=== PATIENT | male | born 1960 | race Caucasian/White ===

== ENCOUNTER → 2016-04-26 | Outpatient (CLI) | payer MEDICAID ==
[~2016-04-26] MED LIST: ACET-1697 PO; ASP81TEC PO; ATOR40TA70 PO; BSP10T PO; BUPR150T49 PO; CILO50TA PO; CLOP75TA PO; CLOP75TA69 PO; CYCL10TA9 PO; DESV100T PO; DESV50TA PO; HCTZ12.5T PO; HYDR28CR10 TOP; IBP800T PO; LAMO25TA PO; LISI1TAB10 PO; LSNP20T PO; LURA40TA PO; LURA80TA3 PO; NAPR-689 PO; NAPR550T2 PO; QUET25TA PO; QUET50TA PO; SIMV40TA4 PO; TRM50T PO; ZLP5T PO; [UNRECOGNIZED DRUG - CODE] PO
--- NOTE | 2016-04-26 10:40 | Diagnostic Imaging Report ---
EXAMINATION: Low dose CT lung screening without contrast. INDICATION: Tobacco use. COMPARISON: Routine low dose screening images of the lungs were obtained. There are no previous CT examinations available for comparison. The plain film examination of the chest performed on 06/25/2015 failed to show any sign of an acute abnormality. There did appear to be minimal atelectasis in the left lung base. FINDINGS: On this study, there does appear to be a small amount of atelectasis/scar formation in the left lung base near the apex of the heart. There is also a small 1.2 cm pleural-based nodular density in this region. I suspect that these findings are chronic in nature. Even so, I would recommend that a short-term (6 month) followup CT chest exam be performed for further study. The lungs are otherwise clear. There is no evidence for failure, pneumonia or for pleural effusion to suggest an acute abnormality. There is no parenchymal mass identified either. The heart size is within normal limits. Coronary artery calcifications involving the LAD are noted. The aorta is not abnormally dilated. There is no mediastinal or hilar adenopathy identified although this exam is limited in the evaluation of adenopathy due to the absence of intravenous contrast. Thyroid gland, where visualized, is unremarkable. The sections through the upper abdomen fail to show any sign of an acute abnormality. The bone windows are unremarkable for fracture or for destructive lesion. IMPRESSION: 1. There is no evidence for an acute cardiopulmonary abnormality. There is no sign of a lung mass either. 2. There is mild scar formation with some nodularity involving the left lung base. I suspect that these findings are benign but a six-month follow CT chest exam would be recommended for additional study. CT screening LungRads Category 3. Dictated by: Dictated on workstation # [id number]
== END ==
LOC: RAD 09:12
PROVIDERS: ATTEND Family Medicine
DX: F17.210 Nicotine dependence, cigarettes, uncomplicated (principal); I10 Essential (primary) hypertension

== ENCOUNTER → 2016-09-27 | Outpatient (CLI) | payer MEDICAID | LOC: CARD 09:28 | PROVIDERS: ATTEND Internal Medicine Cardiovascular Disease | DX: I10 Essential (primary) hypertension (principal); E78.2 Mixed hyperlipidemia; I73.9 Peripheral vascular disease, unspecified; I63.9 Cerebral infarction, unspecified; Z72.0 Tobacco use | CPT/HCPCS: 93306 ==

== ENCOUNTER → 2016-09-29 | Outpatient (CLI) | payer MEDICAID ==
[~2016-09-29] MED LIST changes: +CATHETER FLUSH 10 ML SYR IV PRN; +REGADENOSON 0.4 MG/5 ML SYR (LEXISCAN) IV ONE
--- NOTE | 2016-09-30 08:41 | STRESS TEST ---
DATE OF SERVICE: 09/29/2016 LEXISCAN MYOVIEW STRESS TEST REPORT TEST DATE IS 09/29/2016. SUMMARY: The patient was injected with 10.65 mCi of technetium-99 Myoview and the resting images were obtained. Then, the patient received 0.4 mg of Lexiscan followed by 29.7 mCi of technetium-99 Myoview. Throughout the test, there were no EKG changes. The resting and stressed images were reviewed and compared in the short axis, horizontal long axis, and vertical long axis views. Review of the images showed good radiotracer uptake with typical male pattern. No significant ischemia or infarction. SSS is 1, SDS 1, TID value 1.11. On the gated images, the left ventricle appeared to be normal size with normal contractility. Calculated ejection fraction 72%. CONCLUSION: 1. The patient tolerated Lexiscan well. 2. No ischemia or infarction on SPECT images. 3. Normal left ventricular size with normal contractility. Calculated ejection fraction 72%. Job ID: [id number] DocumentID: [id number] Dictated Date: 09/29/2016 14:46:49 Body Engineer Date: 09/29/2016 18:22:13 Dictated By: LELAND BROWN MD
== END ==
LOC: CARD 07:46
PROVIDERS: ATTEND Internal Medicine Cardiovascular Disease
DX: I10 Essential (primary) hypertension (principal); E78.2 Mixed hyperlipidemia; I73.9 Peripheral vascular disease, unspecified; I63.9 Cerebral infarction, unspecified; Z72.0 Tobacco use
CPT/HCPCS: 78452; 93017

== ENCOUNTER → 2016-11-03 | Outpatient (CLI) | payer MEDICAID ==
[~2016-11-03] MED LIST changes: -CATHETER FLUSH 10 ML SYR IV PRN; +CYCL5TAB PO; -REGADENOSON 0.4 MG/5 ML SYR (LEXISCAN) IV ONE
--- NOTE | 2016-11-03 16:38 | Diagnostic Imaging Report ---
PROCEDURE: CT chest without contrast. TECHNIQUE: Multiple contiguous axial images were obtained through the chest without the use of intravenous contrast. INDICATION: Followup lingular abnormality seen on prior CT. COMPARISON: CT chest of 04/26/2016. FINDINGS: Lungs and airway: No endoluminal lesion in the trachea or central bronchi. No pulmonary mass, nodule, or consolidation. The linear focus of atelectasis adjacent to the prominent mediastinal fat in the lingula is unchanged. The majority of the opacity seen on prior radiograph is secondary to prominent mediastinal fat projecting into the lingula. Pleura: No pleural effusion or pneumothorax. Heart and mediastinum: No supraclavicular or axillary lymphadenopathy. No mediastinal, hilar, or juxtaphrenic lymphadenopathy. Heart is normal in size without pericardial effusion. Normal-caliber thoracic aorta. Upper abdomen: Visualized aspects of the upper abdomen are grossly normal by noncontrast imaging. Musculoskeletal: No concerning focal osseous lesion. IMPRESSION: 1. No intrathoracic neoplasm. 2. Small focus of atelectasis/scar in the lingula is due to mediastinal fat projecting into the lingula. Dictated by: Dictated on workstation # [id number]
== END ==
LOC: RAD 13:05
PROVIDERS: ATTEND Family Medicine
DX: R91.8 Other nonspecific abnormal finding of lung field (principal)
CPT/HCPCS: 71250

== ENCOUNTER 2017-01-07 11:27 | Emergency (ER) | payer OTHER, MEDICAID ==
[~2017-01-07] VITALS: Ht 177.8 cm; Wt 82.6 kg
[~2017-01-07 11:27] MED LIST changes: -CYCL5TAB PO
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
--- OUTSIDE RECORDS SUMMARY | 2017-01-07 12:20 | XMS REPORT ---
Author JERRY Kat [facility] eClinicalWorks Address Unknown Phone Unavailable Care Team Providers Care J2Ee Java Developer Name Role Phone JERRY PITT CP Unavailable Allergies No Known Allergies Problems Problem Type Condition Code Onset Dates Condition Status Problem Essential hypertension I10 Active Problem Schizoaffective disorder F25.9 Active Problem Hyperlipidemia E78.5 Active Problem History of [place] (myocardial infarction) I25.2 Active Assessment Peripheral arterial disease I73.9 Active Problem Peripheral arterial disease I73.9 Active Problem Bipolar disorder F31.9 Active Medications No Known Medications Results No Known Results Summary Purpose eClinicalWorks Submission
--- OUTSIDE RECORDS SUMMARY | 2017-01-07 12:20 | XMS REPORT ---
Author JERRY Kat [facility] eClinicalWorks Address Unknown Phone Unavailable Care Team Providers Care Timber Packer Name Role Phone JERRY PITT Unavailable Allergies No Known Allergies Problems Problem Type Condition Code Onset Dates Condition Status Problem Essential hypertension I10 Active Problem Schizoaffective disorder F25.9 Active Problem Hyperlipidemia E78.5 Active Problem History of [place] (myocardial infarction) I25.2 Active Assessment Hyperlipidemia E78.5 Active Problem Peripheral arterial disease I73.9 Active Problem Bipolar disorder F31.9 Active Medications Medication Code System Code Instructions Start Date End Date Status Dosage Atorvastatin Calcium [facility] [address]-69 40 MG Orally Once a day Apr 03, 2015 1 tablet Results No Known Results Summary Purpose eClinicalWorks Submission
--- OUTSIDE RECORDS SUMMARY | 2017-01-07 12:20 | XMS REPORT ---
Author ROSANNA Hernández [facility] eClinicalWorks Address Unknown Phone Unavailable Care Team Providers Care Theatre Instructor Name Role Phone ROSANNA SILVA Unavailable Allergies, Adverse Reactions, Alerts Substance Reaction Event Type N.K.D.A. Info Not Available Non Drug Allergy Problems Problem Type Condition Code Onset Dates Condition Status Assessment Alcohol dependence, uncomplicated F10.20 Active Assessment Anxiety disorder, unspecified F41.9 Active Assessment Cannabis abuse, uncomplicated F12.10 Active Problem Essential hypertension I10 Active Problem Schizoaffective disorder F25.9 Active Problem Hyperlipidemia E78.5 Active Problem History of [place] (myocardial infarction) I25.2 Active Assessment Bipolar disorder, unspecified F31.9 Active Problem Peripheral arterial disease I73.9 Active Problem Bipolar disorder F31.9 Active Medications Medication Code System Code Instructions Start Date End Date Status Dosage Cyclobenzaprine HCl [facility] 81576024341 10 MG TAKE ONE TABLET BY MOUTH THREE TIMES DAILY NEEDED FOR MUSCLE SPASM Lisinopril [facility] 76830276449 20 MG TAKE ONE TABLET BY MOUTH ONCE DAILY Plavix [facility] [address]-45 75 MG Orally Once a day 1 tablet Zocor [facility] [address]-39 40 MG Orally Once a day 1 tablet in the evening Seroquel [facility] [address]-02 50 MG Orally Once a day May 16, 2014 1 tablet Quetiapine Fumarate [facility] 63284697814 50 MG TAKE ONE TABLET BY MOUTH DAILY Latuda [facility] [address]-25 80 MG Orally TAKE ONE TABLET BY MOUTH DAILY WITH FOOD (AT LEAST 350 CALORIES) FOR DEPRESSION/MOOD SWINGS Cilostazol [facility] 12583328811 50 MG TAKE ONE TABLET BY MOUTH TWICE DAILY TAKE ONE-HALF HOUR BEFORE OR TWO HOURS AFTER BREAKFAST AND DINNER Hydrochlorothiazide [facility] 99372948392 12.5 MG TAKE ONE CAPSULE BY MOUTH ONCE DAILY Naproxen Sodium [facility] [address]-09 550 MG Orally Twice a day 1 tablet as needed Aspirin EC [facility] [address]-97 81 MG Orally Once a day 1 tablet Simvastatin [facility] 13497811627 40 MG TAKE ONE TABLET BY MOUTH ONCE DAILY IN THE EVENING Procedures Procedure Coding System Code Date MH Office Visit, Est Pt., Level 4 CPT-4 61831 Feb 03, 2015 Vital Signs Date/Time: Feb 03, 2015 Cardiac Monitoring Heart Rate 64 bpm Weight 195.3 lbs Height 69 in BMI 28.84 Index Blood Pressure Diastolic 86 mmHg Blood Pressure Systolic 140 mmHg Results No Known Results Summary Purpose eClinicalWorks Submission
--- OUTSIDE RECORDS SUMMARY | 2017-01-07 12:21 | XMS REPORT ---
Author Author ARAMIS Braswell Organization [facility] Address [address] [place] [address] Care Team Providers Care Professor Of Early Childhood Education Name Role Phone ARAMIS Braswell Unavailable PROBLEMS Type Condition ICD9-CM Code [id number] Code Onset Dates Condition Status SNOMED Code Problem Bipolar disorder F31.9 Active 60602017 Problem Schizoaffective disorder F25.9 Active 17014266 Problem Peripheral arterial disease I73.9 Active 567262392 Problem History of [place] (myocardial infarction) I25.2 Active 772220106 Problem Bipolar affective disorder, currently depressed, mild F31.31 Active 680764037 Problem Tobacco use Z72.0 Active 306067975 Problem Hyperlipidemia E78.5 Active 42202694 Problem Essential hypertension I10 Active 33003942 Problem Claudication I73.9 Active 314749527 Problem 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 Active 988380442 ALLERGIES Substance Reaction Event Type Date Status N.K.D.A. Unknown Non Drug Allergy Jan, Unknown SOCIAL HISTORY No smoking Hx information available PLAN OF CARE Activity Details Follow Up 2 Months Reason: VITAL SIGNS Height 69 in 2016-02-10 Weight 190.0 lbs 2016-02-10 Heart Rate 84 bpm 2016-02-10 Respiratory Rate 20 2016-02-10 BMI 28.06 kg/m2 2016-02-10 Blood pressure systolic 102 mmHg 2016-02-10 Blood pressure diastolic 72 mmHg 2016-02-10 MEDICATIONS Medication Instructions Dosage Frequency Start Date End Date Duration Status Latuda 80 MG TAKE ONE TABLET BY MOUTH ONCE DAILY WITH FOOD (AT LEAST 350 CALORIES) FOR DEPRESSION/MOOD Active Mirtazapine 45 MG Orally Once a day 1 tablet 24h June, Active Hydrochlorothiazide 12.5 MG Orally Once a day 1 capsule 24h 90 days Active Aspirin EC 81 MG Orally Once a day 1 tablet 24h Active Lisinopril 20 MG Orally Once a day 1 tablet 24h 90 days Active Cilostazol 50 mg Orally Twice a day 1 tablet 30 minutes before or 2 hours after breakfast and dinner 12h 90 days Active Plavix 75 MG Orally Once a day 1 tablet 24h 90 days Active Atorvastatin Calcium 40 MG Orally Once a day 1 tablet 24h 90 Active Cyclobenzaprine HCl 10 MG Orally Three times a day 1 tablet as needed 8h Apr, Active RESULTS No Results PROCEDURES Procedure Date Ordered Related Diagnosis Body Site EKG, TRACING (IN-HOUSE) 2016-02-10 N/A ELECTROCARDIOGRAM, TRACING Feb 10, 2016 Office Visit, Est Pt., Level 3 Feb 10, 2016 IMMUNIZATIONS No Known Immunizations
--- OUTSIDE RECORDS SUMMARY | 2017-01-07 12:21 | XMS REPORT ---
Author JERRY Kat eClinicalWorks Address Unknown Phone Unavailable Care Team Providers Care Ivf Embryologist Name Role Phone JERRY PITT Unavailable Allergies, Adverse Reactions, Alerts Substance Reaction Event Type N.K.D.A. Info Not Available Non Drug Allergy Problems Problem Type Condition Code Onset Dates Condition Status Assessment Essential hypertension I10 Active Problem History of [place] (myocardial infarction) I25.2 Active Assessment Hyperlipidemia E78.5 Active Assessment Tobacco use Z72.0 Active Assessment Peripheral arterial disease I73.9 Active Problem Claudication I73.9 Active Problem Hyperlipidemia E78.5 Active Problem Tobacco use Z72.0 Active Problem Peripheral arterial disease I73.9 Active Problem Bipolar disorder F31.9 Active Problem Essential hypertension I10 Active Problem Schizoaffective disorder F25.9 Active Medications Medication Code System Code Instructions Start Date End Date Status Dosage Plavix [facility] [address]-72 75 MG Orally Once a day [address] [facility] [address]-49 50 mg Orally Twice a day 1 tablet 30 minutes before or 2 hours after breakfast and dinner Cyclobenzaprine HCl [facility] [address]-20 10 MG Orally Three times a day May 20, 2015 1 tablet as needed Naproxen Sodium [facility] [address]-19 550 MG Orally Twice a day 1 tablet as needed Mirtazapine [facility] [address]-51 45 MG Orally Once a day July 03, [address] [facility] [address]-93 81 MG Orally Once a day [address] [facility] [address]-44 20 MG Orally Once a day [address] [facility] [address]-33 12.5 MG Orally Once a day [address] [facility] [address]-07 40 mg Orally Once a day [address] [facility] 15944977245 80 MG TAKE ONE TABLET BY MOUTH ONCE DAILY WITH FOOD (AT LEAST 350 CALORIES) FOR DEPRESSION/MOOD Procedures Procedure Coding System Code Date Office Visit, Est Pt., Level 3 CPT-4 54441 Oct 16, 2015 Vital Signs Date/Time: Oct 16, 2015 Cardiac Monitoring Heart Rate 68 bpm Weight 183.6 lbs Height 69 in BMI 27.11 Index Blood Pressure Diastolic 82 mmHg Blood Pressure Systolic 124 mmHg Results No Known Results Summary Purpose eClinicalWorks Submission
--- OUTSIDE RECORDS SUMMARY | 2017-01-07 12:21 | XMS REPORT ---
Author Author JERRY PITT Organization [facility] Address [address] [place] [address] Care Team Providers Care Retail Manager In Training Name Role Phone JERRY PITT Unavailable PROBLEMS Type Condition ICD9-CM Code [id number] Code Onset Dates Condition Status SNOMED Code Problem Bipolar disorder F31.9 Active 27646079 Problem Essential hypertension I10 Active 05815733 Problem Schizoaffective disorder F25.9 Active 42669547 Problem Peripheral arterial disease I73.9 Active 404987120 Problem Bipolar affective disorder, currently depressed, mild F31.31 Active 574768914 Problem Tobacco use Z72.0 Active 715509345 Problem 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 Active 487752386 Problem Hyperlipidemia E78.5 Active 10682734 Problem Claudication I73.9 Active 205421637 Problem History of [place] (myocardial infarction) I25.2 Active 098150061 ALLERGIES No Information SOCIAL HISTORY Never Assessed PLAN OF CARE VITAL SIGNS MEDICATIONS Unknown Medications RESULTS No Results PROCEDURES No Known procedures IMMUNIZATIONS No Known Immunizations MEDICAL (GENERAL) HISTORY Type Description Date Medical History hypertension Medical History hyperlipidemia Medical History bipolar disorder Medical History cardiovascular disease-heart attack and stroke Medical History Pure hypercholesterolemia Surgical History appendectomy Surgical History vasectomy-09/01/[address] Flores at [facility] Surgical History Stent placed in groin on right side 2014 Surgical History Blood clot removed from right knee 2015 Hospitalization History Hospitalization for surgery only
--- OUTSIDE RECORDS SUMMARY | 2017-01-07 12:21 | XMS REPORT ---
Author Author JERRY PITT [facility] Address [address] [place] [address] Care Team Providers Care Teacher Dramatics Name Role Phone JERRY PITT Unavailable PROBLEMS Type Condition ICD9-CM Code [id number] Code Onset Dates Condition Status SNOMED Code Problem Bipolar disorder F31.9 Active 41297434 Problem Essential hypertension I10 Active 93873521 Problem Schizoaffective disorder F25.9 Active 24491954 Problem Peripheral arterial disease I73.9 Active 080719789 Problem Bipolar affective disorder, currently depressed, mild F31.31 Active 211177605 Problem Tobacco use Z72.0 Active 450769307 Problem 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 Active 778059559 Problem Hyperlipidemia E78.5 Active 66548159 Problem Claudication I73.9 Active 166568090 Problem History of [place] (myocardial infarction) I25.2 Active 594251056 ALLERGIES No Known Allergies SOCIAL HISTORY Never Assessed PLAN OF CARE Activity Details Follow Up 6 Months Reason:HTN VITAL SIGNS Height 69 in 2016-04-14 Weight 182.6 lbs 2016-04-14 Temperature 97.7 degrees Fahrenheit 2016-04-14 Heart Rate 80 bpm 2016-04-14 Respiratory Rate 18 2016-04-14 BMI 26.96 kg/m2 2016-04-14 Blood pressure systolic 127 mmHg 2016-04-14 Blood pressure diastolic 82 mmHg 2016-04-14 MEDICATIONS Medication Instructions Dosage Frequency Start Date End Date Duration Status Hydrochlorothiazide 12.5 MG Orally Once a day 1 capsule 24h Active Cilostazol 50 mg Orally Twice a day 1 tablet 30 minutes before or 2 hours after breakfast and dinner 12h 90 days Active Atorvastatin Calcium 40 MG Orally Once a day 1 tablet 24h 90 Active Aspirin EC 81 MG Orally Once a day 1 tablet 24h Active Lisinopril 20 MG Orally Once a day 1 tablet 24h Active Plavix 75 MG Orally Once a day 1 tablet 24h 90 days Active Norvasc 5 MG Orally Once a day 1 tablet 24h Active Mirtazapine 30 MG Orally Once a day 2 tablets at bedtime 24h June, 30 days Active Latuda 80 MG TAKE ONE TABLET BY MOUTH ONCE DAILY WITH FOOD (AT LEAST 350 CALORIES) FOR DEPRESSION/MOOD Active Cyclobenzaprine HCl 10 MG Orally Three times a day 1 tablet as needed 8h Apr, Active RESULTS Name Result Date Reference Range LIPID PANEL 2016-04-14 Cholesterol, Total 216 100-199 Triglycerides 148 0-149 HDL Cholesterol 62 >39 VLDL Cholesterol Thien 30 5-40 LDL Cholesterol Calc 124 0-99 Comment: CMP 2016-04-14 Glucose, Serum 86 65-99 BUN 13 6-24 Creatinine, Serum 1.04 0.76-1.27 eGFR If NonAfricn Am 80 >59 eGFR If Africn Am 92 >59 BUN/Creatinine Ratio 13 9-20 Sodium, Serum 141 134-144 Potassium, Serum 4.6 3.5-5.2 Chloride, Serum 99 96-106 Carbon Dioxide, Total 26 18-29 Calcium, Serum 10.1 8.7-10.2 Protein, Total, Serum 7.8 6.0-8.5 Albumin, Serum 5.1 3.5-5.5 Globulin, Total 2.7 1.5-4.5 A/G Ratio 1.9 1.1-2.5 Bilirubin, Total 1.2 0.0-1.2 Alkaline Phosphatase, S 77 39-117 AST (SGOT) 19 0-40 ALT (SGPT) 15 0-44 CT Scan : Chest, low dose (Screening) 2016-04-26 PROCEDURES Procedure Date Ordered Result Body Site LAB [facility] Apr 14, 2016 VENIPUNCT, ROUTINE* Apr 14, 2016 IMMUNIZATIONS No Known Immunizations MEDICAL (GENERAL) HISTORY Type Description Date Medical History hypertension Medical History hyperlipidemia Medical History bipolar disorder Medical History cardiovascular disease-heart attack and stroke Medical History Pure hypercholesterolemia Surgical History appendectomy Surgical History vasectomy-09/01/[address] Flores at [facility] Surgical History Stent placed in groin on right side 2014 Surgical History Blood clot removed from right knee 2015 Hospitalization History Hospitalization for surgery only
--- OUTSIDE RECORDS SUMMARY | 2017-01-07 12:21 | XMS REPORT ---
Author Author JERRY PITT Organization [facility] Address [address] [place] [address] Care Team Providers Care Supervisor Crack Off Name Role Phone JERRY PITT Unavailable PROBLEMS Type Condition ICD9-CM Code [id number] Code Onset Dates Condition Status SNOMED Code Problem Bipolar disorder F31.9 Active 63270417 Problem Essential hypertension I10 Active 85505336 Problem Schizoaffective disorder F25.9 Active 02174581 Problem Peripheral arterial disease I73.9 Active 498463451 Problem Bipolar affective disorder, currently depressed, mild F31.31 Active 680000607 Problem Tobacco use Z72.0 Active 504340003 Problem 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 Active 829534270 Problem Hyperlipidemia E78.5 Active 72140265 Problem Claudication I73.9 Active 400489936 Problem History of [place] (myocardial infarction) I25.2 Active 981863371 ALLERGIES No Information SOCIAL HISTORY Never Assessed PLAN OF CARE VITAL SIGNS MEDICATIONS Medication Instructions Dosage Frequency Start Date End Date Duration Status Plavix 75 MG Orally Once a day 1 tablet 24h 90 days Active Cilostazol 50 mg Orally Twice a day 1 tablet 30 minutes before or 2 hours after breakfast and dinner 12h 90 days Active RESULTS No Results PROCEDURES No Known procedures IMMUNIZATIONS No Known Immunizations MEDICAL (GENERAL) HISTORY Type Description Date Medical History hypertension Medical History hyperlipidemia Medical History bipolar disorder Medical History cardiovascular disease-heart attack and stroke Medical History Pure hypercholesterolemia Surgical History appendectomy Surgical History vasectomy-09/01/[address] Flores at [facility] Surgical History Stent placed in groin on right side 2014 Surgical History Blood clot removed from right knee 2014 Hospitalization History Hospitalization for surgery only
--- OUTSIDE RECORDS SUMMARY | 2017-01-07 12:21 | XMS REPORT ---
Author Author JERRY PITT Organization [facility] Address [address] [place] [address] Care Team Providers Care Cosmetic Assembler Name Role Phone JERRY PITT Unavailable PROBLEMS Type Condition ICD9-CM Code [id number] Code Onset Dates Condition Status SNOMED Code Problem Bipolar disorder F31.9 Active 83367691 Problem Essential hypertension I10 Active 09191689 Problem Schizoaffective disorder F25.9 Active 93613006 Problem Peripheral arterial disease I73.9 Active 364134213 Problem Bipolar affective disorder, currently depressed, mild F31.31 Active 597594964 Problem Tobacco use Z72.0 Active 569083014 Problem 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 Active 386219247 Problem Hyperlipidemia E78.5 Active 48559504 Problem Claudication I73.9 Active 209516538 Problem History of [place] (myocardial infarction) I25.2 Active 023771632 ALLERGIES No Information SOCIAL HISTORY Never Assessed PLAN OF CARE VITAL SIGNS MEDICATIONS Unknown Medications RESULTS No Results PROCEDURES No Known procedures IMMUNIZATIONS No Known Immunizations MEDICAL (GENERAL) HISTORY Type Description Date Medical History hypertension Medical History hyperlipidemia Medical History bipolar disorder Medical History cardiovascular disease-heart attack and stroke Medical History Pure hypercholesterolemia Surgical History appendectomy Surgical History vasectomy-09/01/[address] Flores at [facility] Surgical History Stent placed in groin on right side 2014 Surgical History Blood clot removed from right knee 2015 Hospitalization History Hospitalization for surgery only
--- OUTSIDE RECORDS SUMMARY | 2017-01-07 12:21 | XMS REPORT ---
Author Author JERRY PITT Organization [facility] Address [address] [place] [address] Care Team Providers Care General Engineer Name Role Phone JERRY PITT Unavailable PROBLEMS Type Condition ICD9-CM Code [id number] Code Onset Dates Condition Status SNOMED Code Problem Bipolar disorder F31.9 Active 22677825 Problem Essential hypertension I10 Active 98683437 Problem Schizoaffective disorder F25.9 Active 51617800 Problem Peripheral arterial disease I73.9 Active 368833466 Problem Bipolar affective disorder, currently depressed, mild F31.31 Active 377961583 Problem Tobacco use Z72.0 Active 590490188 Problem 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 Active 651790820 Problem Hyperlipidemia E78.5 Active 96929447 Problem Claudication I73.9 Active 339370042 Problem History of [place] (myocardial infarction) I25.2 Active 741657415 ALLERGIES No Information SOCIAL HISTORY Never Assessed PLAN OF CARE VITAL SIGNS MEDICATIONS Medication Instructions Dosage Frequency Start Date End Date Duration Status Atorvastatin Calcium 80 MG Orally Once a day 1 tablet 24h 30 days Active RESULTS No Results PROCEDURES No Known procedures IMMUNIZATIONS No Known Immunizations MEDICAL (GENERAL) HISTORY Type Description Date Medical History hypertension Medical History hyperlipidemia Medical History bipolar disorder Medical History cardiovascular disease-heart attack and stroke Medical History Pure hypercholesterolemia Surgical History appendectomy Surgical History vasectomy-09/01/[address] Flores at [facility] Surgical History Stent placed in groin on right side 2014 Surgical History Blood clot removed from right knee 2014 Hospitalization History Hospitalization for surgery only
--- OUTSIDE RECORDS SUMMARY | 2017-01-07 12:21 | XMS REPORT ---
Author Author JERRY PITT [employer] Address Unknown Phone Unavailable Care Team Providers Care Monologist Name Role Phone JERRY PITT Unavailable Allergies No Known Allergies Problems Problem Type Condition Code Onset Dates Condition Status Problem Bipolar disorder, unspecified 296.80 Active Problem Unspecified peripheral vascular disease 443.9 Active Problem Nondependent tobacco use disorder 305.1 Active Problem Other and unspecified hyperlipidemia 272.4 Active Problem Unspecified essential hypertension 401.9 Active Problem History of [place] (myocardial infarction) 412 Active Problem Other and unspecified alcohol dependence, unspecified drunkenness 303.90 Active Problem Schizoaffective disorder, unspecified 295.70 Active Problem Osteoarthrosis, unspecified whether generalized or localized, lower leg 715.96 Active Problem Nondependent cannabis abuse, unspecified 305.20 Active Medications No Known Medications Results No Known Results Summary Purpose eClinicalWorks Submission
--- OUTSIDE RECORDS SUMMARY | 2017-01-07 12:21 | XMS REPORT ---
Author DIYA Gonzalez [facility] eClinicalWorks Address Unknown Phone Unavailable Care Team Providers Care Security Systems Sales Representative Name Role Phone DIYA GODFREY Unavailable Allergies, Adverse Reactions, Alerts Substance Reaction Event Type N.K.D.A. Info Not Available Non Drug Allergy Problems Problem Type Condition Code Onset Dates Condition Status Problem Bipolar disorder, unspecified 296.80 Active Problem Unspecified peripheral vascular disease 443.9 Active Problem Nondependent tobacco use disorder 305.1 Active Assessment Bipolar 1 disorder, mixed, partial remission F31.77 Active Problem Other and unspecified hyperlipidemia 272.4 Active Problem Unspecified essential hypertension 401.9 Active Problem History of [place] (myocardial infarction) 412 Active Problem Other and unspecified alcohol dependence, unspecified drunkenness 303.90 Active Problem Schizoaffective disorder, unspecified 295.70 Active Problem Osteoarthrosis, unspecified whether generalized or localized, lower leg 715.96 Active Problem Nondependent cannabis abuse, unspecified 305.20 Active Medications Medication Code System Code Instructions Start Date End Date Status Dosage Cyclobenzaprine HCl [facility] 41615843133 10 MG TAKE ONE TABLET BY MOUTH THREE TIMES DAILY NEEDED FOR MUSCLE SPASM Cilostazol [facility] 09478790931 50 MG TAKE ONE TABLET BY MOUTH TWICE DAILY TAKE ONE-HALF HOUR BEFORE OR TWO HOURS AFTER BREAKFAST AND DINNER Aspirin EC [facility] [address]-09 81 MG Orally Once a day 1 tablet Latuda [facility] [address]-27 80 MG Orally TAKE ONE TABLET BY MOUTH DAILY WITH FOOD (AT LEAST 350 CALORIES) FOR DEPRESSION/MOOD SWINGS Hydrochlorothiazide [facility] 97444716600 12.5 MG TAKE ONE CAPSULE BY MOUTH ONCE DAILY Plavix [facility] [address]-88 75 MG Orally Once a day 1 tablet Zocor [facility] [address]-32 40 MG Orally Once a day 1 tablet in the evening Naproxen Sodium [facility] [address]-21 550 MG Orally Twice a day 1 tablet as needed Seroquel [facility] [address]-11 50 MG Orally Once a day May 16, 2014 1 tablet Simvastatin [facility] 54952777506 40 MG TAKE ONE TABLET BY MOUTH ONCE DAILY IN THE EVENING Lisinopril [facility] 18557933604 20 MG TAKE ONE TABLET BY MOUTH ONCE DAILY Procedures Procedure Coding System Code Date MH Office Visit, Est Pt., Level 3 CPT-4 34973 Jan 03, 2015 Vital Signs Date/Time: Jan 03, 2015 Cardiac Monitoring Heart Rate 94 bpm Weight 200.5 lbs Height 69 in BMI 29.61 Index Blood Pressure Diastolic 94 mmHg Blood Pressure Systolic 140 mmHg Results No Known Results Summary Purpose eClinicalWorks Submission
--- OUTSIDE RECORDS SUMMARY | 2017-01-07 12:21 | XMS REPORT ---
Author Author JERRY PITT [employer] Address Unknown Phone Unavailable Care Team Providers Care Modeling Instructor Name Role Phone JERRY PITT CP Unavailable Allergies No Known Allergies Problems Problem Type Condition Code Onset Dates Condition Status Problem Bipolar disorder, unspecified 296.80 Active Problem Unspecified peripheral vascular disease 443.9 Active Problem Nondependent tobacco use disorder 305.1 Active Assessment Unspecified essential hypertension 401.9 Active Problem Other and unspecified hyperlipidemia 272.4 Active Problem Unspecified essential hypertension 401.9 Active Problem History of [place] (myocardial infarction) 412 Active Problem Other and unspecified alcohol dependence, unspecified drunkenness 303.90 Active Problem Schizoaffective disorder, unspecified 295.70 Active Problem Osteoarthrosis, unspecified whether generalized or localized, lower leg 715.96 Active Problem Nondependent cannabis abuse, unspecified 305.20 Active Medications No Known Medications Procedures Procedure Coding System Code Date VENIPUNCT, ROUTINE* CPT-4 65605 Dec 04, 2014 COMPREHEN METABOLIC PANEL CPT-4 08758 Dec 04, 2014 Results Name Result Date Reference Range Unit Abnormality Flag ROUTINE VENIPUNCTURE Summary Purpose eClinicalWorks Submission
--- OUTSIDE RECORDS SUMMARY | 2017-01-07 12:22 | XMS REPORT ---
Author Author ARAMIS ATKINS Organization [facility] Address [address] [place] [address] Care Team Providers Care Conditioner Tumbler Name Role Phone ARAMIS ATKINS Unavailable PROBLEMS Type Condition ICD9-CM Code [id number] Code Onset Dates Condition Status SNOMED Code Problem Bipolar disorder F31.9 Active 41713627 Problem History of [place] (myocardial infarction) I25.2 Active 176490061 Problem Tobacco use Z72.0 Active 908967077 Problem Claudication I73.9 Active 436143908 Problem Schizoaffective disorder F25.9 Active 93258602 Problem Peripheral arterial disease I73.9 Active 767555490 Problem Hyperlipidemia E78.5 Active 11374450 Problem Essential hypertension I10 Active 82827198 ALLERGIES Unknown Allergies SOCIAL HISTORY No smoking Hx information available PLAN OF CARE VITAL SIGNS MEDICATIONS Medication Instructions Dosage Frequency Start Date End Date Duration Status Mirtazapine 45 MG Orally Once a day 1 tablet 24h June, Active Latuda 80 MG TAKE ONE TABLET BY MOUTH ONCE DAILY WITH FOOD (AT LEAST 350 CALORIES) FOR DEPRESSION/MOOD Active RESULTS No Results PROCEDURES No Known procedures IMMUNIZATIONS No Known Immunizations
--- OUTSIDE RECORDS SUMMARY | 2017-01-07 12:22 | XMS REPORT ---
Author ARAMIS Hackett [facility] eClinicalWorks Address Unknown Phone Unavailable Care Team Providers Care Exhibit Designer Name Role Phone ARAMIS ATKINS CP Unavailable Allergies, Adverse Reactions, Alerts Substance Reaction Event Type N.K.D.A. Info Not Available Non Drug Allergy Problems Problem Type Condition Code Onset Dates Condition Status Assessment Bipolar 1 disorder, mixed, partial remission F31.77 Active Problem Bipolar disorder F31.9 Active Problem History of [place] (myocardial infarction) I25.2 Active Assessment Alcohol dependence, uncomplicated F10.20 Active Problem PVD (peripheral vascular disease) I73.9 Active Problem Claudication I73.9 Active Problem Hypertension I10 Active Problem Schizoaffective disorder F25.9 Active Problem Peripheral arterial disease I73.9 Active Problem Hyperlipidemia E78.5 Active Problem Essential hypertension I10 Active Medications Medication Code System Code Instructions Start Date End Date Status Dosage Plavix [facility] [address]-36 75 MG Orally Once a day 1 tablet Naproxen Sodium [facility] [address]-05 550 MG Orally Twice a day 1 tablet as needed Cyclobenzaprine HCl [facility] [address]-54 10 MG Orally Three times a day May 20, 2015 1 tablet as needed Latuda [facility] 42482879850 80 MG TAKE ONE TABLET BY MOUTH ONCE DAILY WITH FOOD (AT LEAST 350 CALORIES) FOR DEPRESSION/MOOD Lisinopril [facility] [address]-00 20 MG Orally Once a day 1 tablet Hydrochlorothiazide [facility] [address]-80 12.5 MG Orally Once a day 1 capsule Mirtazapine [facility] [address]-16 45 MG Orally Once a day July 03, 2015 1 tablet Aspirin EC [facility] [address]-34 81 MG Orally Once a day 1 tablet Atorvastatin Calcium [facility] 42323482805 40 MG Orally Once a day 1 tablet Cilostazol [facility] [address]-92 50 MG Orally 1 tablet 30 minutes before or 2 hours after breakfast and dinner Procedures Procedure Coding System Code Date Office Visit, Est Pt., Level 3 CPT-4 58396 September 02, 2015 Vital Signs Date/Time: September 02, 2015 Cardiac Monitoring Heart Rate 72 bpm Weight 187.9 lbs Height 69 in Blood Pressure Diastolic 70 mmHg Blood Pressure Systolic 106 mmHg Results No Known Results Summary Purpose eClinicalWorks Submission
--- OUTSIDE RECORDS SUMMARY | 2017-01-07 12:22 | XMS REPORT ---
Author JERRY Kat [employer]ClinicalWorks Address Unknown Phone Unavailable Care Team Providers Care Bus Company Manager Name Role Phone JERRY PITT Unavailable Allergies, Adverse Reactions, Alerts Substance Reaction Event Type N.K.D.A. Info Not Available Non Drug Allergy Problems Problem Type Condition Code Onset Dates Condition Status Assessment Essential hypertension I10 Active Assessment Peripheral arterial disease I73.9 Active Problem Essential hypertension I10 Active Problem Schizoaffective disorder F25.9 Active Problem Hyperlipidemia E78.5 Active Problem History of [place] (myocardial infarction) I25.2 Active Assessment Hyperlipidemia E78.5 Active Problem Peripheral arterial disease I73.9 Active Problem Bipolar disorder F31.9 Active Medications Medication Code System Code Instructions Start Date End Date Status Dosage Cyclobenzaprine HCl [facility] 44668747397 10 MG TAKE ONE TABLET BY MOUTH THREE TIMES DAILY NEEDED FOR MUSCLE SPASM Latuda [facility] [address]-01 80 MG Orally TAKE ONE TABLET BY MOUTH DAILY WITH FOOD (AT LEAST 350 CALORIES) FOR DEPRESSION/MOOD SWINGS Plavix [facility] [address]-86 75 MG Orally Once a day 1 tablet Cilostazol [facility] [address]-59 50 MG Orally 1 tablet 30 minutes before or 2 hours after breakfast and dinner Seroquel [facility] [address]-54 50 MG Orally Once a day May 16, 2014 1 tablet Naproxen Sodium [facility] [address]-56 550 MG Orally Twice a day 1 tablet as needed Aspirin EC [facility] [address]-51 81 MG Orally Once a day 1 tablet Lisinopril [facility] [address]-16 20 MG Orally Once a day 1 tablet Hydrochlorothiazide [facility] [address]-82 12.5 MG Orally Once a day 1 capsule Simvastatin [facility] [address]-46 40 MG Orally 1 tablet in the evening Procedures Procedure Coding System Code Date Office Visit, Est Pt., Level 3 CPT-4 15794 Feb 25, 2015 Vital Signs Date/Time: Feb 25, 2015 Temperature 97.4 F Weight 194.1 lbs Height 69 in BMI 28.66 Index Blood Pressure Diastolic 74 mmHg Blood Pressure Systolic 120 mmHg Cardiac Monitoring Heart Rate 70 bpm Results No Known Results Summary Purpose eClinicalWorks Submission
--- OUTSIDE RECORDS SUMMARY | 2017-01-07 12:22 | XMS REPORT ---
Author JERRY Kat [facility] eClinicalWorks Address Unknown Phone Unavailable Care Team Providers Care Application Architect Name Role Phone JERRY PITT CP Unavailable Allergies No Known Allergies Problems Problem Type Condition Code Onset Dates Condition Status Assessment Peripheral arterial disease I73.9 Active Problem Essential hypertension I10 Active Problem Schizoaffective disorder F25.9 Active Problem Hyperlipidemia E78.5 Active Problem History of [place] (myocardial infarction) I25.2 Active Assessment Hyperlipidemia E78.5 Active Problem Peripheral arterial disease I73.9 Active Problem Bipolar disorder F31.9 Active Medications No Known Medications Procedures Procedure Coding System Code Date LIPID PANEL CPT-4 25746 Mar 28, 2015 COMPREHEN METABOLIC PANEL CPT-4 71815 Mar 28, 2015 COMPLETE CBC W/AUTO DIFF WBC CPT-4 04187 Mar 28, 2015 VENIPUNCT, ROUTINE* CPT-4 69084 Mar 28, 2015 Results Name Result Date Reference Range Unit Abnormality Flag ROUTINE VENIPUNCTURE Summary Purpose eClinicalWorks Submission
--- OUTSIDE RECORDS SUMMARY | 2017-01-07 12:22 | XMS REPORT ---
Author JERRY Kat [facility] eClinicalWorks Address Unknown Phone Unavailable Care Team Providers Care Industrial Truck Driver Name Role Phone JERRY PITT CP Unavailable Allergies No Known Allergies Problems Problem Type Condition Code Onset Dates Condition Status Assessment Hyperlipidemia E78.5 Active Problem Bipolar disorder F31.9 Active Problem History of [place] (myocardial infarction) I25.2 Active Problem PVD (peripheral vascular disease) I73.9 Active Problem Claudication I73.9 Active Problem Hypertension I10 Active Problem Schizoaffective disorder F25.9 Active Problem Peripheral arterial disease I73.9 Active Problem Hyperlipidemia E78.5 Active Problem Essential hypertension I10 Active Medications No Known Medications Procedures Procedure Coding System Code Date VENIPUNCT, ROUTINE* CPT-4 67650 Oct 01, 2015 [facility] CPT-[facility] NOBLL Oct 01, 2015 Results No Known Results Summary Purpose eClinicalWorks Submission
--- OUTSIDE RECORDS SUMMARY | 2017-01-07 12:22 | XMS REPORT ---
Author ARAMIS Hackett Organization [employer] Address Unknown Phone Unavailable Care Team Providers Care Cooker Soda Name Role Phone ARAMIS ATKINS CP Unavailable Allergies No Known Allergies Problems Problem Type Condition Code Onset Dates Condition Status Problem History of [place] (myocardial infarction) I25.2 Active Problem Claudication I73.9 Active Problem Hyperlipidemia E78.5 Active Problem Tobacco use Z72.0 Active Problem Peripheral arterial disease I73.9 Active Problem Bipolar disorder F31.9 Active Problem Essential hypertension I10 Active Problem Schizoaffective disorder F25.9 Active Medications Medication Code System Code Instructions Start Date End Date Status Dosage Mirtazapine [facility] [address]-19 45 MG Orally Once a day July 03, 2015 1 tablet Results No Known Results Summary Purpose eClinicalWorks Submission
--- OUTSIDE RECORDS SUMMARY | 2017-01-07 12:22 | XMS REPORT ---
Author Author ARAMIS Braswell [facility] Address [address] [place] [address] Care Team Providers Care [employer] Policy Professor Name Role Phone ARAMIS Braswell Unavailable PROBLEMS Type Condition ICD9-CM Code [id number] Code Onset Dates Condition Status SNOMED Code Problem Bipolar disorder F31.9 Active 08798407 Problem Essential hypertension I10 Active 09177464 Problem Schizoaffective disorder F25.9 Active 68441199 Problem Peripheral arterial disease I73.9 Active 661432427 Problem Bipolar affective disorder, currently depressed, mild F31.31 Active 385088585 Problem Tobacco use Z72.0 Active 541639607 Problem 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 Active 092375999 Problem Hyperlipidemia E78.5 Active 55701202 Problem Claudication I73.9 Active 272553694 Problem History of [place] (myocardial infarction) I25.2 Active 090174934 ALLERGIES Substance Reaction Event Type Date Status N.K.D.A. Unknown Non Drug Allergy Feb, Unknown SOCIAL HISTORY No smoking Hx information available PLAN OF CARE Activity Details Follow Up 2 Months Reason: VITAL SIGNS Height 69 in 2016-03-11 Weight 191.1 lbs 2016-03-11 Heart Rate 78 bpm 2016-03-11 Respiratory Rate 20 2016-03-11 BMI 28.22 kg/m2 2016-03-11 Blood pressure systolic 119 mmHg 2016-03-11 Blood pressure diastolic 73 mmHg 2016-03-11 MEDICATIONS Medication Instructions Dosage Frequency Start Date End Date Duration Status Aspirin EC 81 MG Orally Once a day 1 tablet 24h Active Cyclobenzaprine HCl 10 MG Orally Three times a day 1 tablet as needed 8h Apr, Active Atorvastatin Calcium 40 MG Orally Once a day 1 tablet 24h 90 Active Mirtazapine 30 MG Orally Once a day 2 tablets at bedtime 24h June, 30 days Active Cilostazol 50 mg Orally Twice a day 1 tablet 30 minutes before or 2 hours after breakfast and dinner 12h 90 days Active Plavix 75 MG Orally Once a day 1 tablet 24h 90 days Active Lisinopril 20 MG Orally Once a day 1 tablet 24h 90 days Active Hydrochlorothiazide 12.5 MG Orally Once a day 1 capsule 24h 90 days Active Latuda 80 MG TAKE ONE TABLET BY MOUTH ONCE DAILY WITH FOOD (AT LEAST 350 CALORIES) FOR DEPRESSION/MOOD Active RESULTS No Results PROCEDURES Procedure Date Ordered Related Diagnosis Body Site Office Visit, Est Pt., Level 3 Mar 11, 2016 IMMUNIZATIONS No Known Immunizations
--- OUTSIDE RECORDS SUMMARY | 2017-01-07 12:22 | XMS REPORT ---
Author Author JERRY PITT Organization [facility] Address [address] [place] [address] Care Team Providers Care Robotics Testing Technician Name Role Phone JERRY PITT Unavailable PROBLEMS Type Condition ICD9-CM Code [id number] Code Onset Dates Condition Status SNOMED Code Problem Bipolar disorder F31.9 Active 23731804 Problem Essential hypertension I10 Active 06363782 Problem Schizoaffective disorder F25.9 Active 67661592 Problem Peripheral arterial disease I73.9 Active 787076038 Problem Bipolar affective disorder, currently depressed, mild F31.31 Active 710003676 Problem Tobacco use Z72.0 Active 239692941 Problem 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 Active 084374833 Problem Hyperlipidemia E78.5 Active 02787850 Problem Claudication I73.9 Active 014543084 Problem History of [place] (my[place] infarction) I25.2 Active 322589839 ALLERGIES No Information SOCIAL HISTORY Never Assessed PLAN OF CARE VITAL SIGNS MEDICATIONS Unknown Medications RESULTS Name Result Date Reference Range LIPID PANEL 2016-07-22 Cholesterol, Total 163 100-199 Triglycerides 136 0-149 HDL Cholesterol 46 >39 VLDL Cholesterol Thien 27 5-40 LDL Cholesterol Calc 90 0-99 LIVER PANEL (LFT) 2016-07-22 Protein, Total, Serum 6.3 6.0-8.5 Albumin, Serum 4.3 3.5-5.5 Bilirubin, Total 0.5 0.0-1.2 Bilirubin, Direct 0.13 0.00-0.40 Alkaline Phosphatase, S 50 39-117 AST (SGOT) 14 0-40 ALT (SGPT) 15 0-44 PROCEDURES Procedure Date Ordered Result Body Site LAB NOT BILLED BY [facility] July 22, 2016 VENIPUNCT, ROUTINE* July 22, 2016 IMMUNIZATIONS No Known Immunizations MEDICAL (GENERAL) [...]
--- OUTSIDE RECORDS SUMMARY | 2017-01-07 12:22 | XMS REPORT ---
Author JERRY Kat [facility] eClinicalWorks Address Unknown Phone Unavailable Care Team Providers Care Calciner Operator Name Role Phone JERRY PITT CP Unavailable Allergies No Known Allergies Problems Problem Type Condition Code Onset Dates Condition Status Problem Essential hypertension I10 Active Problem Schizoaffective disorder F25.9 Active Problem Hyperlipidemia E78.5 Active Problem History of [place] (myocardial infarction) I25.2 Active Problem Peripheral arterial disease I73.9 Active Problem Bipolar disorder F31.9 Active Medications No Known Medications Results No Known Results Summary Purpose eClinicalWorks Submission
--- OUTSIDE RECORDS SUMMARY | 2017-01-07 12:22 | XMS REPORT ---
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 Name Role Phone ARAMIS Braswell Unavailable PROBLEMS Type Condition ICD9-CM Code [id number] Code Onset Dates Condition Status SNOMED Code Problem Bipolar disorder F31.9 Active 87438048 Problem Essential hypertension I10 Active 95585005 Problem Schizoaffective disorder F25.9 Active 03220097 Problem Peripheral arterial disease I73.9 Active 767901046 Problem Bipolar affective disorder, currently depressed, mild F31.31 Active 292772475 Problem Tobacco use Z72.0 Active 822746394 Problem 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 Active 127190726 Problem Hyperlipidemia E78.5 Active 33632464 Problem Claudication I73.9 Active 796673874 Problem History of [place] (myocardial infarction) I25.2 Active 763467415 ALLERGIES No Known Allergies SOCIAL HISTORY Never Assessed PLAN OF CARE Activity Details Follow Up 6 Weeks, 06/01/16 Reason: VITAL SIGNS Height 69 in 2016-04-20 Weight 185.7 lbs 2016-04-20 Heart Rate 104 bpm 2016-04-20 Respiratory Rate 20 2016-04-20 BMI 27.42 kg/m2 2016-04-20 Blood pressure systolic 121 mmHg 2016-04-20 Blood pressure diastolic 72 mmHg 2016-04-20 MEDICATIONS Medication Instructions Dosage Frequency Start Date End Date Duration Status Aspirin EC 81 MG Orally Once a day 1 tablet 24h Active Mirtazapine 30 MG Orally Once a day 0.5 - 1 tablet at bedtime 24h June, 30 days Active Cyclobenzaprine HCl 10 MG Orally Three times a day 1 tablet as needed 8h Apr, Active Cilostazol 50 mg Orally Twice a day 1 tablet 30 minutes before or 2 hours after breakfast and dinner 12h 90 days Active Atorvastatin Calcium 80 MG Orally Once a day 1 tablet 24h 30 days Active HydrOXYzine HCl 10 MG Orally TID prn anxiousnous 1 tablet Mar, 30 days Active Lisinopril 20 MG Orally Once a day 1 tablet 24h Active Norvasc 5 MG Orally Once a day 1 tablet 24h Active Latuda 80 MG TAKE ONE TABLET BY MOUTH ONCE DAILY WITH FOOD (AT LEAST 350 CALORIES) FOR DEPRESSION/MOOD Active Hydrochlorothiazide 12.5 MG Orally Once a day 1 capsule 24h Active Plavix 75 MG Orally Once a day 1 tablet 24h 90 days Active RESULTS No Results PROCEDURES No Known procedures IMMUNIZATIONS No Known Immunizations MEDICAL (GENERAL) HISTORY Type Description Date Medical History hypertension Medical History hyperlipidemia Medical History bipolar disorder Medical History cardiovascular disease-heart attack and stroke Medical History Pure hypercholesterolemia Surgical History appendectomy Surgical History vasectomy-09/01/[address] Flores at [facility] Surgical History Stent placed in groin on right side 2014 Surgical History Blood clot removed from right knee 2014 Hospitalization History Hospitalization for surgery only
--- OUTSIDE RECORDS SUMMARY | 2017-01-07 12:27 | XMS REPORT | Continuity of Care Document ---
Author Author [facility] Address Unknown Phone Unavailable Allergies Active Description Code Type Severity Reaction Onset Reported/Identified Relationship to Patient Clinical Status Yes No Known Drug Allergies [id number] Drug Allergy Unknown N/ A 06/25/2015 Medications Problems Date Dx Coded Attending Type Code Diagnosis Diagnosed By 12/16/2011 TRAVIS MANCERA DO 296.80 BIPOLAR DISORDER UNSPECIFIED 12/16/2011 TRAVIS MANCERA DO 305.1 TOBACCO ABUSE 12/16/2011 TRAVIS MANCERA DO 719.41 joint pain, localized in the shoulder 12/16/2011 TRAVIS MANCERA DO 796.2 Elevated Blood Pressure Reading Without Diagnosis Of Hypertension 12/16/2011 296.80 BIPOLAR DISORDER UNSPECIFIED 12/16/2011 305.1 TOBACCO ABUSE 12/16/2011 719.41 joint pain, localized in the shoulder 12/16/2011 796.2 Elevated Blood Pressure Reading Without Diagnosis Of Hypertension 12/16/2011 296.80 BIPOLAR DISORDER UNSPECIFIED 12/16/2011 305.1 TOBACCO ABUSE 12/16/2011 719.41 joint pain, localized in the shoulder 12/16/2011 796.2 Elevated Blood Pressure Reading Without Diagnosis Of Hypertension 12/16/2011 296.80 BIPOLAR DISORDER UNSPECIFIED 12/16/2011 305.1 TOBACCO ABUSE 12/16/2011 719.41 joint pain, localized in the shoulder 12/16/2011 796.2 Elevated Blood Pressure Reading Without Diagnosis Of Hypertension 12/16/2011 TRAVIS MANCERA DO 296.80 BIPOLAR DISORDER UNSPECIFIED 12/16/2011 TRAVIS MANCERA DO 305.1 TOBACCO ABUSE 12/16/2011 TRAVIS MANCERA DO 719.41 joint pain, localized in the shoulder 12/16/2011 TRAVIS MANCERA DO 796.2 Elevated Blood Pressure Reading Without Diagnosis Of Hypertension 12/16/2011 296.80 BIPOLAR DISORDER UNSPECIFIED 12/16/2011 305.1 TOBACCO ABUSE 12/16/2011 719.41 joint pain, localized in the shoulder 12/16/2011 796.2 Elevated Blood Pressure Reading Without Diagnosis Of Hypertension 12/16/2011 296.80 BIPOLAR DISORDER UNSPECIFIED 12/16/2011 305.1 TOBACCO ABUSE 12/16/2011 719.41 joint pain, localized in the shoulder 12/16/2011 796.2 Elevated Blood Pressure Reading Without Diagnosis Of Hypertension 12/16/2011 296.80 BIPOLAR DISORDER UNSPECIFIED 12/16/2011 305.1 TOBACCO ABUSE 12/16/2011 719.41 joint pain, localized in the shoulder 12/16/2011 796.2 Elevated Blood Pressure Reading Without Diagnosis Of Hypertension 12/16/2011 296.80 BIPOLAR DISORDER UNSPECIFIED 12/16/2011 305.1 TOBACCO ABUSE 12/16/2011 719.41 joint pain, localized in the shoulder 12/16/2011 796.2 Elevated Blood Pressure Reading Without Diagnosis Of Hypertension 12/16/2011 MEHUL WILLINGHAM MD, KALIN A 296.80 BIPOLAR DISORDER UNSPECIFIED 12/16/2011 MEHUL WILLINGHAM MD, KALIN A 305.1 TOBACCO ABUSE 12/16/2011 MEHUL WILLINGHAM MD, KALIN A 719.41 joint pain, localized in the shoulder 12/16/2011 MEHUL WILLINGHAM MD, KALIN A 796.2 Elevated Blood Pressure Reading Without Diagnosis Of Hypertension 12/16/2011 296.80 BIPOLAR DISORDER UNSPECIFIED 12/16/2011 305.1 TOBACCO ABUSE 12/16/2011 719.41 joint pain, localized in the shoulder 12/16/2011 796.2 Elevated Blood Pressure Reading Without Diagnosis Of Hypertension 12/16/2011 296.80 BIPOLAR DISORDER UNSPECIFIED 12/16/2011 305.1 TOBACCO ABUSE 12/16/2011 719.41 joint pain, localized in the shoulder 12/16/2011 796.2 Elevated Blood Pressure Reading Without Diagnosis Of Hypertension 12/16/2011 296.80 BIPOLAR DISORDER UNSPECIFIED 12/16/2011 305.1 TOBACCO ABUSE 12/16/2011 719.41 joint pain, localized in the shoulder 12/16/2011 796.2 Elevated Blood Pressure Reading Without Diagnosis Of Hypertension 12/16/2011 296.80 BIPOLAR DISORDER UNSPECIFIED 12/16/2011 305.1 TOBACCO ABUSE 12/16/2011 719.41 joint pain, localized in the shoulder 12/16/2011 796.2 Elevated Blood Pressure Reading Without Diagnosis Of Hypertension 12/16/2011 296.80 BIPOLAR DISORDER UNSPECIFIED 12/16/2011 305.1 TOBACCO ABUSE 12/16/2011 719.41 JOINT PAIN, LOCALIZED IN THE SHOULDER 12/16/2011 796.2 Elevated Blood Pressure Reading Without Diagnosis Of Hypertension 12/16/2011 296.80 BIPOLAR DISORDER UNSPECIFIED 12/16/2011 305.1 TOBACCO ABUSE 12/16/2011 719.41 JOINT PAIN, LOCALIZED IN THE SHOULDER 12/16/2011 796.2 Elevated Blood Pressure Reading Without Diagnosis Of Hypertension 12/16/2011 296.80 BIPOLAR DISORDER UNSPECIFIED 12/16/2011 305.1 TOBACCO ABUSE 12/16/2011 719.41 JOINT PAIN, LOCALIZED IN THE SHOULDER 12/16/2011 796.2 Elevated Blood Pressure Reading Without Diagnosis Of Hypertension 12/16/2011 296.80 BIPOLAR DISORDER UNSPECIFIED 12/16/2011 305.1 TOBACCO ABUSE 12/16/2011 719.41 JOINT PAIN, LOCALIZED IN THE SHOULDER 12/16/2011 796.2 Elevated Blood Pressure Reading Without Diagnosis Of Hypertension 12/16/2011 296.80 BIPOLAR DISORDER UNSPECIFIED 12/16/2011 305.1 TOBACCO ABUSE 12/16/2011 719.41 JOINT PAIN, LOCALIZED IN THE SHOULDER 12/16/2011 796.2 Elevated Blood Pressure Reading Without Diagnosis Of Hypertension 12/16/2011 296.80 BIPOLAR DISORDER UNSPECIFIED 12/16/2011 305.1 TOBACCO ABUSE 12/16/2011 719.41 JOINT PAIN, LOCALIZED IN THE SHOULDER 12/16/2011 796.2 Elevated Blood Pressure Reading Without Diagnosis Of Hypertension 12/16/2011 296.80 BIPOLAR DISORDER UNSPECIFIED 12/16/2011 305.1 TOBACCO ABUSE 12/16/2011 719.41 JOINT PAIN, LOCALIZED IN THE SHOULDER 12/16/2011 796.2 Elevated Blood Pressure Reading Without Diagnosis Of Hypertension 12/16/2011 IBRAHIMA WATTS DO F 296.80 BIPOLAR DISORDER UNSPECIFIED 12/16/2011 IBRAHIMA WATTS DO F 305.1 TOBACCO ABUSE 12/16/2011 IBRAHIMA WATTS DO F 719.41 JOINT PAIN, LOCALIZED IN THE SHOULDER 12/16/2011 IBRAHIMA WATTS DO F 796.2 Elevated Blood Pressure Reading Without Diagnosis Of Hypertension 12/16/2011 JERRY PITT MD N 296.80 BIPOLAR DISORDER UNSPECIFIED 12/16/2011 JERRY PITT MD 305.1 TOBACCO ABUSE 12/16/2011 JERRY PITT MD 719.41 JOINT PAIN, LOCALIZED IN THE SHOULDER 12/16/2011 JERRY PITT MD 796.2 Elevated Blood Pressure Reading Without Diagnosis Of Hypertension 12/16/2011 MANCERA DO, TRAVIS K 296.80 BIPOLAR DISORDER UNSPECIFIED 12/16/2011 MANCERA DO, TRAVIS K 305.1 TOBACCO ABUSE 12/16/2011 MANCERA DO, TRAVIS K 719.41 JOINT PAIN, LOCALIZED IN THE SHOULDER 12/16/2011 MANCERA DO, TRAVIS K 796.2 Elevated Blood Pressure Reading Without Diagnosis Of Hypertension 12/16/2011 MANCERA DO, TRAVIS K 296.80 BIPOLAR DISORDER UNSPECIFIED 12/16/2011 MANCERA DO, TRAVIS K 305.1 TOBACCO ABUSE 12/16/2011 MANCERA DO, TRAVIS K 719.41 JOINT PAIN, LOCALIZED IN THE SHOULDER 12/16/2011 MANCERA DO, TRAVIS K 796.2 Elevated Blood Pressure Reading Without Diagnosis Of Hypertension 12/16/2011 MANCERA DO, TRAVIS K 296.80 BIPOLAR DISORDER UNSPECIFIED 12/16/2011 MANCERA DO, TRAVIS K 305.1 TOBACCO ABUSE 12/16/2011 MANCERA DO, TRAVIS K 719.41 JOINT PAIN, LOCALIZED IN THE SHOULDER 12/16/2011 MANCERA DO, TRAVIS K 796.2 Elevated Blood Pressure Reading Without Diagnosis Of Hypertension 12/16/2011 MANCERA DO, TRAVIS K 296.80 BIPOLAR DISORDER UNSPECIFIED 12/16/2011 MANCERA DO, TRAVIS K 305.1 TOBACCO ABUSE 12/16/2011 MANCERA DO, TRAVIS K 719.41 JOINT PAIN, LOCALIZED IN THE SHOULDER 12/16/2011 MANCERA DO, TRAVIS K 796.2 Elevated Blood Pressure Reading Without Diagnosis Of Hypertension 12/16/2011 SANTY VALLEJO APRN 296.80 BIPOLAR DISORDER UNSPECIFIED 12/16/2011 SANTY VALLEJO APRN 305.1 TOBACCO ABUSE 12/16/2011 SANTY VALLEJO APRN 719.41 JOINT PAIN, LOCALIZED IN THE SHOULDER 12/16/2011 SANTY VALLEJO APRN 796.2 Elevated Blood Pressure Reading Without Diagnosis Of Hypertension 12/16/2011 MANCERA DO, TRAVIS K 296.80 BIPOLAR DISORDER UNSPECIFIED 12/16/2011 MANCERA DO, TRAVIS K 305.1 TOBACCO ABUSE 12/16/2011 MANCERA DO, TRAVIS K 719.41 JOINT PAIN, LOCALIZED IN THE SHOULDER 12/16/2011 MANCERA TRAVIS MCGILL K 796.2 Elevated Blood Pressure Reading Without Diagnosis Of Hypertension 12/16/2011 JERRY PITT MD N 296.80 BIPOLAR DISORDER UNSPECIFIED 12/16/2011 JERRY PITT MD 305.1 TOBACCO ABUSE 12/16/2011 JERRY PITT MD 719.41 JOINT PAIN, LOCALIZED IN THE SHOULDER 12/16/2011 JERRY PITT MD N 796.2 Elevated Blood Pressure Reading Without Diagnosis Of Hypertension 12/16/2011 SANTY VALLEJO APRN 296.80 BIPOLAR DISORDER UNSPECIFIED 12/16/2011 SANTY VALLEJO APRN 305.1 TOBACCO ABUSE 12/16/2011 SANTY VALLEJO APRN 719.41 JOINT PAIN, LOCALIZED IN THE SHOULDER 12/16/2011 SANTY VALLEJO APRN 796.2 Elevated Blood Pressure Reading Without Diagnosis Of Hypertension 12/16/2011 JERRY PITT MD 296.80 BIPOLAR DISORDER UNSPECIFIED 12/16/2011 JERRY PITT MD N 305.1 TOBACCO ABUSE 12/16/2011 JERRY PITT MD N 719.41 JOINT PAIN, LOCALIZED IN THE SHOULDER 12/16/2011 JERRY PITT MD N 796.2 Elevated Blood Pressure Reading Without Diagnosis Of Hypertension 12/16/2011 SANTY VALLEJO APRN 296.80 BIPOLAR DISORDER UNSPECIFIED 12/16/2011 SANTY VALLEJO APRN D 305.1 TOBACCO ABUSE 12/16/2011 SANTY VALLEJO APRN 719.41 JOINT PAIN, LOCALIZED IN THE SHOULDER 12/16/2011 SANTY VALLEJO APRN 796.2 Elevated Blood Pressure Reading Without Diagnosis Of Hypertension 12/16/2011 JERRY PITT MD N 296.80 BIPOLAR DISORDER UNSPECIFIED 12/16/2011 JERRY PITT MD N 305.1 TOBACCO ABUSE 12/16/2011 JERRY PITT MD N 719.41 JOINT PAIN, LOCALIZED IN THE SHOULDER 12/16/2011 JERRY PITT MD N 796.2 Elevated Blood Pressure Reading Without Diagnosis Of Hypertension 12/16/2011 JERRY PITT MD N 296.80 BIPOLAR DISORDER UNSPECIFIED 12/16/2011 JERRY PITT MD N 305.1 TOBACCO ABUSE 12/16/2011 JERRY PITT MD N 719.41 JOINT PAIN, LOCALIZED IN THE SHOULDER 12/16/2011 JERRY PITT MD N 796.2 Elevated Blood Pressure Reading Without Diagnosis Of Hypertension 12/16/2011 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, DIYA 296.80 BIPOLAR DISORDER UNSPECIFIED 12/16/2011 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, DIYA 305.1 TOBACCO ABUSE 12/16/2011 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, DIYA 719.41 JOINT PAIN, LOCALIZED IN THE SHOULDER 12/16/2011 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, DIYA 796.2 Elevated Blood Pressure Reading Without Diagnosis Of Hypertension 12/16/2011 JERRY PITT MD N 296.80 BIPOLAR DISORDER UNSPECIFIED 12/16/2011 JERRY PITT MD N 305.1 TOBACCO ABUSE 12/16/2011 JERRY PITT MD N 719.41 JOINT PAIN, LOCALIZED IN THE SHOULDER 12/16/2011 JERRY PITT MD N 796.2 Elevated Blood Pressure Reading Without Diagnosis Of Hypertension 12/16/2011 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, DIYA 296.80 BIPOLAR DISORDER UNSPECIFIED 12/16/2011 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, DIYA 305.1 TOBACCO ABUSE 12/16/2011 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, DIYA 719.41 JOINT PAIN, LOCALIZED IN THE SHOULDER 12/16/2011 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, DIYA 796.2 Elevated Blood Pressure Reading Without Diagnosis Of Hypertension 12/16/2011 MANCERA DO TRAVIS K 296.80 BIPOLAR DISORDER UNSPECIFIED 12/16/2011 CALDERON MCGILL TRAVIS K 305.1 TOBACCO ABUSE 12/16/2011 MANCERA DO TRAVIS K 719.41 JOINT PAIN, LOCALIZED IN THE SHOULDER 12/16/2011 MANCERA DO TRAVIS K 796.2 Elevated Blood Pressure Reading Without Diagnosis Of Hypertension 12/16/2011 BELINDA KHAN RN 296.80 BIPOLAR DISORDER UNSPECIFIED 12/16/2011 BELINDA KHAN RN 305.1 TOBACCO ABUSE 12/16/2011 BELINDA KHAN RN 719.41 JOINT PAIN, LOCALIZED IN THE SHOULDER 12/16/2011 BELINDA KHAN RN E 796.2 Elevated Blood Pressure Reading Without Diagnosis Of Hypertension 12/16/2011 BELINDA KHAN RN 296.80 BIPOLAR DISORDER UNSPECIFIED 12/16/2011 ERIN RN, BELINDA E 305.1 TOBACCO ABUSE 12/16/2011 ERIN RN, BELINDA E 719.41 JOINT PAIN, LOCALIZED IN THE SHOULDER 12/16/2011 ERIN RN, BELINDA E 796.2 Elevated Blood Pressure Reading Without Diagnosis Of Hypertension 12/16/2011 ERIN RN, BELINDA E 296.80 BIPOLAR DISORDER UNSPECIFIED 12/16/2011 KHAN RN, BELINDA E 305.1 TOBACCO ABUSE 12/16/2011 ERIN RN, BELINDA E 719.41 JOINT PAIN, LOCALIZED IN THE SHOULDER 12/16/2011 ERIN RN, BELINDA E 796.2 Elevated Blood Pressure Reading Without Diagnosis Of Hypertension 12/16/2011 JERRY PITT MD N 296.80 BIPOLAR DISORDER UNSPECIFIED 12/16/2011 JERRY PITT MD N 305.1 TOBACCO ABUSE 12/16/2011 JERRY PITT MD N 719.41 JOINT PAIN, LOCALIZED IN THE SHOULDER 12/16/2011 JERRY PITT MD N 796.2 Elevated Blood Pressure Reading Without Diagnosis Of Hypertension 12/16/2011 YOLANDA MICHELLE APRN R 296.80 BIPOLAR DISORDER UNSPECIFIED 12/16/2011 YOLANDA MICHELLE APRN R 305.1 TOBACCO ABUSE 12/16/2011 HIMANSHU MICHELLE APRNINA R 719.41 JOINT PAIN, LOCALIZED IN THE SHOULDER 12/16/2011 YOLANDA MICHELLE APRN R 796.2 Elevated Blood Pressure Reading Without Diagnosis Of Hypertension 12/16/2011 JERRY PITT MD N 296.80 BIPOLAR DISORDER UNSPECIFIED 12/16/2011 JERRY PITT MD N 305.1 TOBACCO ABUSE 12/16/2011 JERRY PITT MD N 719.41 JOINT PAIN, LOCALIZED IN THE SHOULDER 12/16/2011 JERRY PITT MD N 796.2 Elevated Blood Pressure Reading Without Diagnosis Of Hypertension 12/16/2011 YOLANDA MICHELLE APRN R 296.80 BIPOLAR DISORDER UNSPECIFIED 12/16/2011 HIMANSHU MICHELLE APRNINA R 305.1 TOBACCO ABUSE 12/16/2011 HIMANSHU MICHELLE APRNINA R 719.41 JOINT PAIN, LOCALIZED IN THE SHOULDER 12/16/2011 HIMANSHU MICHELLE APRNINA R 796.2 Elevated Blood Pressure Reading Without Diagnosis Of Hypertension 12/16/2011 LELAND BROWN MD 296.80 BIPOLAR DISORDER UNSPECIFIED 12/16/2011 KEVIN GUTIERREZ, LELAND 305.1 TOBACCO ABUSE 12/16/2011 KEVIN GUTIERREZ, LELAND 719.41 JOINT PAIN, LOCALIZED IN THE SHOULDER 12/16/2011 LELAND BROWN MD 796.2 Elevated Blood Pressure Reading Without Diagnosis Of Hypertension 12/16/2011 HOLLY MANCERA DOA K 296.80 BIPOLAR DISORDER UNSPECIFIED 12/16/2011 CALDERON MCGILL TRAVIS K 305.1 TOBACCO ABUSE 12/16/2011 CALDERON MCGILL TRAVIS K 719.41 JOINT PAIN, LOCALIZED IN THE SHOULDER 12/16/2011 CALDERON MCGILL TRAVIS K 796.2 Elevated Blood Pressure Reading Without Diagnosis Of Hypertension 12/30/2011 CALDERON MCGILL TRAVIS K 401.1 HYPERTENSION, BENIGN ESSENTIAL 12/30/2011 401.1 HYPERTENSION, BENIGN ESSENTIAL 12/30/2011 401.1 HYPERTENSION, BENIGN ESSENTIAL 12/30/2011 401.1 HYPERTENSION, BENIGN ESSENTIAL 12/30/2011 CALDERON MCGILL TRAVIS K 401.1 HYPERTENSION, BENIGN ESSENTIAL 12/30/2011 401.1 HYPERTENSION, BENIGN ESSENTIAL 12/30/2011 401.1 HYPERTENSION, BENIGN ESSENTIAL 12/30/2011 401.1 HYPERTENSION, BENIGN ESSENTIAL 12/30/2011 401.1 HYPERTENSION, BENIGN ESSENTIAL 12/30/2011 MEHUL WILLINGHAM MD, KALIN Cornejo 401.1 HYPERTENSION, BENIGN ESSENTIAL 12/30/2011 401.1 HYPERTENSION, BENIGN ESSENTIAL 12/30/2011 401.1 HYPERTENSION, BENIGN ESSENTIAL 12/30/2011 401.1 HYPERTENSION, BENIGN ESSENTIAL 12/30/2011 401.1 HYPERTENSION, BENIGN ESSENTIAL 12/30/2011 401.1 HYPERTENSION, BENIGN ESSENTIAL 12/30/2011 401.1 HYPERTENSION, BENIGN ESSENTIAL 12/30/2011 401.1 HYPERTENSION, BENIGN ESSENTIAL 12/30/2011 401.1 HYPERTENSION, BENIGN ESSENTIAL 12/30/2011 401.1 HYPERTENSION, BENIGN ESSENTIAL 12/30/2011 401.1 HYPERTENSION, BENIGN ESSENTIAL 12/30/2011 401.1 HYPERTENSION, BENIGN ESSENTIAL 12/30/2011 IBRAHIMA WATTS DO 401.1 HYPERTENSION, BENIGN ESSENTIAL 12/30/2011 YOANDY GUTIERREZ, JERRY Aldana 401.1 HYPERTENSION, BENIGN ESSENTIAL 12/30/2011 CALDERON MCGILL TRAVIS K 401.1 HYPERTENSION, BENIGN ESSENTIAL 12/30/2011 CALDERON MCGILL TRAVIS K 401.1 HYPERTENSION, BENIGN ESSENTIAL 12/30/2011 MANCERA DO TRAVIS K 401.1 HYPERTENSION, BENIGN ESSENTIAL 12/30/2011 TRAVIS MANCERA DO K 401.1 HYPERTENSION, BENIGN ESSENTIAL 12/30/2011 SANTY VALLEJO APRN 401.1 HYPERTENSION, BENIGN ESSENTIAL 12/30/2011 TRAVIS MANCERA DO K 401.1 HYPERTENSION, BENIGN ESSENTIAL 12/30/2011 JERRY PITT MD 401.1 HYPERTENSION, BENIGN ESSENTIAL 12/30/2011 SANTY VALLEJO APRN 401.1 HYPERTENSION, BENIGN ESSENTIAL 12/30/2011 JERRY PITT MD 401.1 HYPERTENSION, BENIGN ESSENTIAL 12/30/2011 SANTY VALLEJO APRN 401.1 HYPERTENSION, BENIGN ESSENTIAL 12/30/2011 JERRY PITT MD 401.1 HYPERTENSION, BENIGN ESSENTIAL 12/30/2011 JERRY PITT MD 401.1 HYPERTENSION, BENIGN ESSENTIAL 12/30/2011 DIYA GODFREY APRN 401.1 HYPERTENSION, BENIGN ESSENTIAL 12/30/2011 JERRY PITT MD 401.1 HYPERTENSION, BENIGN ESSENTIAL 12/30/2011 DIYA GODFREY APRN 401.1 HYPERTENSION, BENIGN ESSENTIAL 12/30/2011 TRAVIS MANCERA DO 401.1 HYPERTENSION, BENIGN ESSENTIAL 12/30/2011 ERIN DIEGO, BELINDA E 401.1 HYPERTENSION, BENIGN ESSENTIAL 12/30/2011 ERIN DIEGO, BELINDA E 401.1 HYPERTENSION, BENIGN ESSENTIAL 12/30/2011 ERIN DIEGO, BELINDA E 401.1 HYPERTENSION, BENIGN ESSENTIAL 12/30/2011 JERRY PITT MD N 401.1 HYPERTENSION, BENIGN ESSENTIAL 12/30/2011 YOLANDA MICHELLE APRN R 401.1 HYPERTENSION, BENIGN ESSENTIAL 12/30/2011 JERRY PITT MD N 401.1 HYPERTENSION, BENIGN ESSENTIAL 12/30/2011 YOLANDA MICHELLE APRN R 401.1 HYPERTENSION, BENIGN ESSENTIAL 12/30/2011 LELAND BROWN MD 401.1 HYPERTENSION, BENIGN ESSENTIAL 12/30/2011 TRAVIS MANCERA DO K 401.1 HYPERTENSION, BENIGN ESSENTIAL 01/07/2012 TRAVIS MANCERA DO 295.70 P SCHIZO AFFECTIVE 01/07/2012 295.70 P SCHIZO AFFECTIVE 01/07/2012 295.70 P SCHIZO AFFECTIVE 01/07/2012 295.70 P SCHIZO AFFECTIVE 01/07/2012 TRAVIS MANCERA DO 295.70 P SCHIZO AFFECTIVE 01/07/2012 295.70 P SCHIZO AFFECTIVE 01/07/2012 295.70 P SCHIZO AFFECTIVE 01/07/2012 295.70 P SCHIZO AFFECTIVE 01/07/2012 295.70 P SCHIZO AFFECTIVE 01/07/2012 MEHUL WILLINGHAM MD, KALIN A 295.70 P SCHIZO AFFECTIVE 01/07/2012 295.70 P SCHIZO AFFECTIVE 01/07/2012 295.70 P SCHIZO AFFECTIVE 01/07/2012 295.70 P SCHIZO AFFECTIVE 01/07/2012 295.70 P SCHIZO AFFECTIVE 01/07/2012 295.70 P SCHIZO AFFECTIVE 01/07/2012 295.70 P SCHIZO AFFECTIVE 01/07/2012 295.70 P SCHIZO AFFECTIVE 01/07/2012 295.70 P SCHIZO AFFECTIVE 01/07/2012 295.70 P SCHIZO AFFECTIVE 01/07/2012 295.70 P SCHIZO AFFECTIVE 01/07/2012 295.70 P SCHIZO AFFECTIVE 01/07/2012 IBRAHIMA WATTS DO 295.70 P SCHIZO AFFECTIVE 01/07/2012 YOANDY GUTIERREZ, JERRY N 295.70 P SCHIZO AFFECTIVE 01/07/2012 MANCERA DO, TRAVIS K 295.70 P SCHIZO AFFECTIVE 01/07/2012 MANCERA DO, TRAVIS K 295.70 P SCHIZO AFFECTIVE 01/07/2012 MANCERA DO, TRAVIS K 295.70 P SCHIZO AFFECTIVE 01/07/2012 MANCERA DO, TRAVIS K 295.70 P SCHIZO AFFECTIVE 01/07/2012 SANTY VALLEJO APRN 295.70 P SCHIZO AFFECTIVE 01/07/2012 MANCERA , TRAVIS K 295.70 P SCHIZO AFFECTIVE 01/07/2012 JERRY PITT MD N 295.70 P SCHIZO AFFECTIVE 01/07/2012 SANTY VALLEJO APRN 295.70 P SCHIZO AFFECTIVE 01/07/2012 JERRY PITT MD N 295.70 P SCHIZO AFFECTIVE 01/07/2012 SANTY VALLEJO APRN 295.70 P SCHIZO AFFECTIVE 01/07/2012 JERRY PITT MD N 295.70 P SCHIZO AFFECTIVE 01/07/2012 JERRY PITT MD N 295.70 P SCHIZO AFFECTIVE 01/07/2012 DIYA GODFREY APRN 295.70 P SCHIZO AFFECTIVE 01/07/2012 YOANDY GUTIERREZ, JERRY N 295.70 P SCHIZO AFFECTIVE 01/07/2012 DIYA GODFREY APRN 295.70 P SCHIZO AFFECTIVE 01/07/2012 TRAVIS MANCERA DO 295.70 P SCHIZO AFFECTIVE 01/07/2012 ERIN RN, BELINDA E 295.70 P SCHIZO AFFECTIVE 01/07/2012 ERIN DIEGO, BELINDA E 295.70 P SCHIZO AFFECTIVE 01/07/2012 ERIN DIEGO, BELINDA E 295.70 P SCHIZO AFFECTIVE 01/07/2012 YOANDY GUTIERREZ, JERRY N 295.70 P SCHIZO AFFECTIVE 01/07/2012 MIGUEL ANGEL PANDYA, YOLANDA R 295.70 P SCHIZO AFFECTIVE 01/07/2012 JERRY PITT MD N 295.70 P SCHIZO AFFECTIVE 01/07/2012 MIGUEL ANGEL PANDYA, YOLANDA R 295.70 P SCHIZO AFFECTIVE 01/07/2012 KEVIN GUTIERREZ, LELAND 295.70 P SCHIZO AFFECTIVE 01/07/2012 TRAVIS MANCERA DO 295.70 P SCHIZO AFFECTIVE 01/18/2012 TRAVIS MANCERA DO 724.2 LUMBAGO/ LOW BACK PAIN 01/18/2012 724.2 LUMBAGO/ LOW BACK PAIN 01/18/2012 724.2 LUMBAGO/ LOW BACK PAIN 01/18/2012 724.2 LUMBAGO/ LOW BACK PAIN 01/18/2012 TRAVIS MANCERA DO 724.2 LUMBAGO/ LOW BACK PAIN 01/18/2012 724.2 LUMBAGO/ LOW BACK PAIN 01/18/2012 724.2 LUMBAGO/ LOW BACK PAIN 01/18/2012 724.2 LUMBAGO/ LOW BACK PAIN 01/18/2012 724.2 LUMBAGO/ LOW BACK PAIN 01/18/2012 MEHUL WILLINGHAM MD, KALIN Cornejo 724.2 LUMBAGO/ LOW BACK PAIN 01/18/2012 724.2 LUMBAGO/ LOW BACK PAIN 01/18/2012 724.2 LUMBAGO/ LOW BACK PAIN 01/18/2012 724.2 LUMBAGO/ LOW BACK PAIN 01/18/2012 724.2 LUMBAGO/ LOW BACK PAIN 01/18/2012 724.2 LUMBAGO/ LOW BACK PAIN 01/18/2012 724.2 LUMBAGO/ LOW BACK PAIN 01/18/2012 724.2 LUMBAGO/ LOW BACK PAIN 01/18/2012 724.2 LUMBAGO/ LOW BACK PAIN 01/18/2012 724.2 LUMBAGO/ LOW BACK PAIN 01/18/2012 724.2 LUMBAGO/ LOW BACK PAIN 01/18/2012 724.2 LUMBAGO/ LOW BACK PAIN 01/18/2012 IBRAHIMA WATTS DO 724.2 LUMBAGO/ LOW BACK PAIN 01/18/2012 JERRY PITT MD N 724.2 LUMBAGO/ LOW BACK PAIN 01/18/2012 MANCERA DO TRAVIS K 724.2 LUMBAGO/ LOW BACK PAIN 01/18/2012 MANCERA DO, TRAVIS K 724.2 LUMBAGO/ LOW BACK PAIN 01/18/2012 MANCERA DO, TRAVIS K 724.2 LUMBAGO/ LOW BACK PAIN 01/18/2012 MANCERA DO, TRAVIS K 724.2 LUMBAGO/ LOW BACK PAIN 01/18/2012 SANTY VALLEJO APRN 724.2 LUMBAGO/ LOW BACK PAIN 01/18/2012 MANCERA DO, TRAVIS K 724.2 LUMBAGO/ LOW BACK PAIN 01/18/2012 JERRY PITT MD N 724.2 LUMBAGO/ LOW BACK PAIN 01/18/2012 SANTY VALLEJO APRN 724.2 LUMBAGO/ LOW BACK PAIN 01/18/2012 JERRY PITT MD 724.2 LUMBAGO/ LOW BACK PAIN 01/18/2012 SANTY VALLEJO APRN 724.2 LUMBAGO/ LOW BACK PAIN 01/18/2012 JERRY PITT MD N 724.2 LUMBAGO/ LOW BACK PAIN 01/18/2012 JERRY PITT MD 724.2 LUMBAGO/ LOW BACK PAIN 01/18/2012 DIYA GODFREY APRN 724.2 LUMBAGO/ LOW BACK PAIN 01/18/2012 JERRY PITT MD N 724.2 LUMBAGO/ LOW BACK PAIN 01/18/2012 DIYA GODFREY APRN 724.2 LUMBAGO/ LOW BACK PAIN 01/18/2012 TRAVIS MANCERA DO K 724.2 LUMBAGO/ LOW BACK PAIN 01/18/2012 ERIN DIEGO, BELINDA E 724.2 LUMBAGO/ LOW BACK PAIN 01/18/2012 ERIN DIEGO, BELINDA E 724.2 LUMBAGO/ LOW BACK PAIN 01/18/2012 ERIN DIEGO, BELINDA E 724.2 LUMBAGO/ LOW BACK PAIN 01/18/2012 YOANDY GUTIERREZ, JERRY N 724.2 LUMBAGO/ LOW BACK PAIN 01/18/2012 MIGUEL ANGEL PANDYA, YOLANDA R 724.2 LUMBAGO/ LOW BACK PAIN 01/18/2012 YOANDY GUTIERREZ, JERRY N 724.2 LUMBAGO/ LOW BACK PAIN 01/18/2012 MIGUEL ANGEL PANDYA, YOLANDA R 724.2 LUMBAGO/ LOW BACK PAIN 01/18/2012 KEVIN GUTIERREZ, LELAND 724.2 LUMBAGO/ LOW BACK PAIN 01/18/2012 TRAVIS MANCERA DO 724.2 LUMBAGO/ LOW BACK PAIN 02/24/2012 380.22 OTHER ACUTE OTITIS EXTERNA 02/24/2012 V03.82 PPV23 (PNEUMOVAX) DX 02/24/2012 V04.81 FLU DX (3 YRS AND ABOVE, IM) 02/24/2012 V06.1 TDAP DX 02/24/2012 380.22 OTHER ACUTE OTITIS EXTERNA 02/24/2012 V03.82 PPV23 (PNEUMOVAX) DX 02/24/2012 V04.81 FLU DX (3 YRS AND ABOVE, IM) 02/24/2012 V06.1 TDAP DX 02/24/2012 MANCERA DO TRAVIS K 380.22 OTHER ACUTE OTITIS EXTERNA 02/24/2012 MANCERA TRAVIS MCGILL K V03.82 PPV23 (PNEUMOVAX) DX 02/24/2012 MANCERA TRAVIS MCGILL K V04.81 FLU DX (3 YRS AND ABOVE, IM) 02/24/2012 MANCERA DO TRAVIS K V06.1 TDAP DX 02/24/2012 380.22 OTHER ACUTE OTITIS EXTERNA 02/24/2012 V03.82 PPV23 (PNEUMOVAX) DX 02/24/2012 V04.81 FLU DX (3 YRS AND ABOVE, IM) 02/24/2012 V06.1 TDAP DX 02/24/2012 380.22 OTHER ACUTE OTITIS EXTERNA 02/24/2012 V03.82 PPV23 (PNEUMOVAX) DX 02/24/2012 V04.81 FLU DX (3 YRS AND ABOVE, IM) 02/24/2012 V06.1 TDAP DX 02/24/2012 380.22 OTHER ACUTE OTITIS EXTERNA 02/24/2012 V03.82 PPV23 (PNEUMOVAX) DX 02/24/2012 V04.81 FLU DX (3 YRS AND ABOVE, IM) 02/24/2012 V06.1 TDAP DX 02/24/2012 380.22 Other Acute Otitis Externa 02/24/2012 V03.82 Ppv23 (pneumovax) Dx 02/24/2012 V04.81 Flu Dx (3 Yrs And Above, Im) 02/24/2012 V06.1 Tdap Dx 02/24/2012 MEHUL WILLINGHAM MD, KALIN Cornejo 380.22 Other Acute Otitis Externa 02/24/2012 MEHUL WILLINGHAM MD, KALIN Cornejo V03.82 Ppv23 (pneumovax) Dx 02/24/2012 MEHUL WILLINGHAM MD, KALIN Cornejo V04.81 Flu Dx (3 Yrs And Above, Im) 02/24/2012 MEHUL WILLINGHAM MD, KALIN Cornejo V06.1 Tdap Dx 02/24/2012 380.22 Other Acute Otitis Externa 02/24/2012 V03.82 Ppv23 (pneumovax) Dx 02/24/2012 V04.81 Flu Dx (3 Yrs And Above, Im) 02/24/2012 V06.1 Tdap Dx 02/24/2012 380.22 Other Acute Otitis Externa 02/24/2012 V03.82 Ppv23 (pneumovax) Dx 02/24/2012 V04.81 Flu Dx (3 Yrs And Above, Im) 02/24/2012 V06.1 Tdap Dx 02/24/2012 380.22 Other Acute Otitis Externa 02/24/2012 V03.82 Ppv23 (pneumovax) Dx 02/24/2012 V04.81 Flu Dx (3 Yrs And Above, Im) 02/24/2012 V06.1 Tdap Dx 02/24/2012 380.22 Other Acute Otitis Externa 02/24/2012 V03.82 Ppv23 (pneumovax) Dx 02/24/2012 V04.81 Flu Dx (3 Yrs And Above, Im) 02/24/2012 V06.1 Tdap Dx 02/24/2012 380.22 Other Acute Otitis Externa 02/24/2012 V03.82 Ppv23 (pneumovax) Dx 02/24/2012 V04.81 Flu Dx (3 Yrs And Above, Im) 02/24/2012 V06.1 Tdap Dx 02/24/2012 380.22 Other Acute Otitis Externa 02/24/2012 V03.82 Ppv23 (pneumovax) Dx 02/24/2012 V04.81 Flu Dx (3 Yrs And Above, Im) 02/24/2012 V06.1 Tdap Dx 02/24/2012 380.22 Other Acute Otitis Externa 02/24/2012 V03.82 Ppv23 (pneumovax) Dx 02/24/2012 V04.81 Flu Dx (3 Yrs And Above, Im) 02/24/2012 V06.1 Tdap Dx 02/24/2012 380.22 Other Acute Otitis Externa 02/24/2012 V03.82 Ppv23 (pneumovax) Dx 02/24/2012 V04.81 Flu Dx (3 Yrs And Above, Im) 02/24/2012 V06.1 Tdap Dx 02/24/2012 380.22 Other Acute Otitis Externa 02/24/2012 V03.82 Ppv23 (pneumovax) Dx 02/24/2012 V04.81 Flu Dx (3 Yrs And Above, Im) 02/24/2012 V06.1 Tdap Dx 02/24/2012 380.22 Other Acute Otitis Externa 02/24/2012 V03.82 Ppv23 (pneumovax) Dx 02/24/2012 V04.81 Flu Dx (3 Yrs And Above, Im) 02/24/2012 V06.1 Tdap Dx 02/24/2012 380.22 Other Acute Otitis Externa 02/24/2012 V03.82 Ppv23 (pneumovax) Dx 02/24/2012 V04.81 Flu Dx (3 Yrs And Above, Im) 02/24/2012 V06.1 Tdap Dx 02/24/2012 IBRAHIMA WATTS DO 380.22 Other Acute Otitis Externa 02/24/2012 IBRAHIMA WATTS DO V03.82 Ppv23 (pneumovax) Dx 02/24/2012 IBRAHIMA WATTS DO V04.81 Flu Dx (3 Yrs And Above, Im) 02/24/2012 IBRAHIMA WATTS DO V06.1 Tdap Dx 02/24/2012 JERRY PITT MD 380.22 Other Acute Otitis Externa 02/24/2012 JERRY PITT MD V03.82 Ppv23 (pneumovax) Dx 02/24/2012 JERRY PITT MD V04.81 Flu Dx (3 Yrs And Above, Im) 02/24/2012 JERRY PITT MD V06.1 Tdap Dx 02/24/2012 MANCERA DO, TRAVIS K 380.22 Other Acute Otitis Externa 02/24/2012 MANCERA DO, TRAVIS K V03.82 Ppv23 (pneumovax) Dx 02/24/2012 MANCERA DO, TRAVIS K V04.81 Flu Dx (3 Yrs And Above, Im) 02/24/2012 MANCERA DO, TRAVIS K V06.1 Tdap Dx 02/24/2012 MANCERA DO, TRAVIS K 380.22 Other Acute Otitis Externa 02/24/2012 MANCERA DO, TRAVIS K V03.82 Ppv23 (pneumovax) Dx 02/24/2012 MANCERA DO, TRAVIS K V04.81 Flu Dx (3 Yrs And Above, Im) 02/24/2012 MANCERA DO, TRAVIS K V06.1 Tdap Dx 02/24/2012 MANCERA DO, TRAVIS K 380.22 Other Acute Otitis Externa 02/24/2012 MANCERA DO, TRAVIS K V03.82 Ppv23 (pneumovax) Dx 02/24/2012 MANCERA DO, TRAVIS K V04.81 Flu Dx (3 Yrs And Above, Im) 02/24/2012 MANCERA DO, TRAVIS K V06.1 Tdap Dx 02/24/2012 MANCERA DO, TRAVIS K 380.22 Other Acute Otitis Externa 02/24/2012 MANCERA DO, TRAVIS K V03.82 Ppv23 (pneumovax) Dx 02/24/2012 MANCERA DO, TRAVIS K V04.81 Flu Dx (3 Yrs And Above, Im) 02/24/2012 MANCERA DO, TRAVIS K V06.1 Tdap Dx 02/24/2012 SANTY VALLEJO APRN 380.22 Other Acute Otitis Externa 02/24/2012 SANTY VALLEJO APRN V03.82 Ppv23 (pneumovax) Dx 02/24/2012 SANTY VALLEJO APRN V04.81 Flu Dx (3 Yrs And Above, Im) 02/24/2012 SANTY VALLEJO APRN V06.1 Tdap Dx 02/24/2012 CALDERON MCGILL TRAVIS K 380.22 Other Acute Otitis Externa 02/24/2012 CALDERON MCGILL, TRAVIS K V03.82 Ppv23 (pneumovax) Dx 02/24/2012 CALDERON MCGILL TRAVIS K V04.81 Flu Dx (3 Yrs And Above, Im) 02/24/2012 CALDERON MCGILL, TRAVIS K V06.1 Tdap Dx 02/24/2012 JERRY PITT MD 380.22 Other Acute Otitis Externa 02/24/2012 JERRY PITT MD V03.82 Ppv23 (pneumovax) Dx 02/24/2012 JERRY PITT MD V04.81 Flu Dx (3 Yrs And Above, Im) 02/24/2012 JERRY PITT MD V06.1 Tdap Dx 02/24/2012 SANTY VALLEJO APRN 380.22 Other Acute Otitis Externa 02/24/2012 SANTY VALLEJO APRN V03.82 Ppv23 (pneumovax) Dx 02/24/2012 SANTY VALLEJO APRN V04.81 Flu Dx (3 Yrs And Above, Im) 02/24/2012 SANTY VALLEJO APRN V06.1 Tdap Dx 02/24/2012 JERRY PITT MD N 380.22 Other Acute Otitis Externa 02/24/2012 JERRY PITT MD V03.82 Ppv23 (pneumovax) Dx 02/24/2012 JERRY PITT MD V04.81 Flu Dx (3 Yrs And Above, Im) 02/24/2012 JERRY PITT MD V06.1 Tdap Dx 02/24/2012 SANTY VALLEJO APRN 380.22 Other Acute Otitis Externa 02/24/2012 SANTY VALLEJO APRN V03.82 Ppv23 (pneumovax) Dx 02/24/2012 SANTY VALLEJO APRN V04.81 Flu Dx (3 Yrs And Above, Im) 02/24/2012 SANTY VALLEJO APRN V06.1 Tdap Dx 02/24/2012 JERRY PITT MD 380.22 Other Acute Otitis Externa 02/24/2012 JERRY PITT MD V03.82 Ppv23 (pneumovax) Dx 02/24/2012 JERRY PITT MD V04.81 Flu Dx (3 Yrs And Above, Im) 02/24/2012 JERRY PITT MD V06.1 Tdap Dx 02/24/2012 JERRY PITT MD 380.22 Other Acute Otitis Externa 02/24/2012 JERRY PITT MD V03.82 Ppv23 (pneumovax) Dx 02/24/2012 JERRY PITT MD V04.81 Flu Dx (3 Yrs And Above, Im) 02/24/2012 JERRY PITT MD V06.1 Tdap Dx 02/24/2012 DIYA GODFREY APRN 380.22 Other Acute Otitis Externa 02/24/2012 ARTIE GODFREY APRNETTE V03.82 Ppv23 (pneumovax) Dx 02/24/2012 ARTIE GODFREY APRNETTE V04.81 Flu Dx (3 Yrs And Above, Im) 02/24/2012 BEKAH PANDYA DIYA V06.1 Tdap Dx 02/24/2012 JERRY PITT MD N 380.22 Other Acute Otitis Externa 02/24/2012 JERRY PITT MD V03.82 Ppv23 (pneumovax) Dx 02/24/2012 JERRY PITT MD V04.81 Flu Dx (3 Yrs And Above, Im) 02/24/2012 JERRY PITT MD V06.1 Tdap Dx 02/24/2012 BEKAH PANDYA DIYA 380.22 Other Acute Otitis Externa 02/24/2012 ARTIE GODFREY APRNETTE V03.82 Ppv23 (pneumovax) Dx 02/24/2012 BEKAH PANDYA DIYA V04.81 Flu Dx (3 Yrs And Above, Im) 02/24/2012 BEKAH PANDYA DIYA V06.1 Tdap Dx 02/24/2012 TRAVIS MANCERA DO 380.22 Other Acute Otitis Externa 02/24/2012 MANCERA DO, TRAVIS K V03.82 Ppv23 (pneumovax) Dx 02/24/2012 TRAVIS MANCERA DO K V04.81 Flu Dx (3 Yrs And Above, Im) 02/24/2012 TRAVIS MANCERA DO K V06.1 Tdap Dx 02/24/2012 ERIN DIEGO, BELINDA E 380.22 Other Acute Otitis Externa 02/24/2012 ERIN RN, BELINDA E V03.82 Ppv23 (pneumovax) Dx 02/24/2012 ERIN RN, BELINDA E V04.81 Flu Dx (3 Yrs And Above, Im) 02/24/2012 ERIN DIEGO, BELINDA E V06.1 Tdap Dx 02/24/2012 ERIN DIEGO, BELINDA E 380.22 Other Acute Otitis Externa 02/24/2012 ERIN RN, BELINDA E V03.82 Ppv23 (pneumovax) Dx 02/24/2012 ERIN DIEGO, BELINDA E V04.81 Flu Dx (3 Yrs And Above, Im) 02/24/2012 ERIN DIEGO, BELINDA E V06.1 Tdap Dx 02/24/2012 ERIN DIEGO, BELINDA E 380.22 Other Acute Otitis Externa 02/24/2012 ERIN RN, BELINDA E V03.82 Ppv23 (pneumovax) Dx 02/24/2012 ERIN DIEGO, BELINDA E V04.81 Flu Dx (3 Yrs And Above, Im) 02/24/2012 ERIN DIEGO, BELINDA E V06.1 Tdap Dx 02/24/2012 JERRY PITT MD 380.22 Other Acute Otitis Externa 02/24/2012 JERRY PITT MD V03.82 Ppv23 (pneumovax) Dx 02/24/2012 JERRY PITT MD V04.81 Flu Dx (3 Yrs And Above, Im) 02/24/2012 JERRY PITT MD V06.1 Tdap Dx 02/24/2012 YOLANDA MICHELLE APRN R 380.22 Other Acute Otitis Externa 02/24/2012 YOLANDA MICHELLE APRN R V03.82 Ppv23 (pneumovax) Dx 02/24/2012 YOLANDA MICHELLE APRN R V04.81 Flu Dx (3 Yrs And Above, Im) 02/24/2012 MIGUEL ANGEL PANDYA, YOLANDA R V06.1 Tdap Dx 02/24/2012 JERRY PITT MD N 380.22 Other Acute Otitis Externa 02/24/2012 JERRY PITT MD N V03.82 Ppv23 (pneumovax) Dx 02/24/2012 JERRY PITT MD N V04.81 Flu Dx (3 Yrs And Above, Im) 02/24/2012 JERRY PITT MD N V06.1 Tdap Dx 02/24/2012 MIGUEL ANGEL PANDYA, YOLANDA R 380.22 Other Acute Otitis Externa 02/24/2012 MIGUEL ANGEL PANDYA, YOLANDA R V03.82 Ppv23 (pneumovax) Dx 02/24/2012 MIGUEL ANGEL PANDYA, YOLANDA R V04.81 Flu Dx (3 Yrs And Above, Im) 02/24/2012 MIGUEL ANGEL PANDYA, YOLANDA R V06.1 Tdap Dx 02/24/2012 LELAND BROWN MD 380.22 Other Acute Otitis Externa 02/24/2012 LELAND BROWN MD V03.82 Ppv23 (pneumovax) Dx 02/24/2012 LELAND BROWN MD V04.81 Flu Dx (3 Yrs And Above, Im) 02/24/2012 LELAND BROWN MD V06.1 Tdap Dx 02/24/2012 TRAVIS MANCERA DO K 380.22 Other Acute Otitis Externa 02/24/2012 TRAVIS MANCERA DO V03.82 Ppv23 (pneumovax) Dx 02/24/2012 TRAVIS MANCERA DO V04.81 Flu Dx (3 Yrs And Above, Im) 02/24/2012 TRAVIS MANCERA DO V06.1 Tdap Dx 02/25/2012 TRAVIS MANCERA DO V58.69 LONG-TERM (CURRENT) USE OF OTHER MEDICATIONS 02/25/2012 V58.69 LONG-TERM (CURRENT) USE OF OTHER MEDICATIONS 02/25/2012 V58.69 LONG-TERM (CURRENT) USE OF OTHER MEDICATIONS 02/25/2012 V58.69 LONG-TERM (CURRENT) USE OF OTHER MEDICATIONS 02/25/2012 V58.69 Long-term (current) Use Of Other Medications 02/25/2012 MEHUL WILLINGHAM MD, KALIN Cornejo V58.69 Long-term (current) Use Of Other Medications 02/25/2012 V58.69 Long-term (current) Use Of Other Medications 02/25/2012 V58.69 Long-term (current) Use Of Other Medications 02/25/2012 V58.69 Long-term (current) Use Of Other Medications 02/25/2012 V58.69 Long-term (current) Use Of Other Medications 02/25/2012 V58.69 Long-term (current) Use Of Other Medications 02/25/2012 V58.69 Long-term (current) Use Of Other Medications 02/25/2012 V58.69 Long-term (current) Use Of Other Medications 02/25/2012 V58.69 Long-term (current) Use Of Other Medications 02/25/2012 V58.69 Long-term (current) Use Of Other Medications 02/25/2012 V58.69 Long-term (current) Use Of Other Medications 02/25/2012 V58.69 Long-term (current) Use Of Other Medications 02/25/2012 IBRAHIMA WATTS DO V58.69 Long-term (current) Use Of Other Medications 02/25/2012 JERRY PITT MD V58.69 Long-term (current) Use Of Other Medications 02/25/2012 TRAVIS MANCERA DO V58.69 Long-term (current) Use Of Other Medications 02/25/2012 TRAVIS MANCERA DO V58.69 Long-term (current) Use Of Other Medications 02/25/2012 TRAVIS MANCERA DO V58.69 Long-term (current) Use Of Other Medications 02/25/2012 TRAVIS MANCERA DO K V58.69 Long-term (current) Use Of Other Medications 02/25/2012 SANTY VALLEJO APRN V58.69 Long-term (current) Use Of Other Medications 02/25/2012 TRAVIS MANCERA DO V58.69 Long-term (current) Use Of Other Medications 02/25/2012 JERRY PITT MD V58.69 Long-term (current) Use Of Other Medications 02/25/2012 SANTY VALLEJO APRN V58.69 Long-term (current) Use Of Other Medications 02/25/2012 JERRY PITT MD V58.69 Long-term (current) Use Of Other Medications 02/25/2012 SANTY VALELJO APRN V58.69 Long-term (current) Use Of Other Medications 02/25/2012 JERRY PITT MD V58.69 Long-term (current) Use Of Other Medications 02/25/2012 JERRY PITT MD V58.69 Long-term (current) Use Of Other Medications 02/25/2012 DIYA GODFREY APRN V58.69 Long-term (current) Use Of Other Medications 02/25/2012 JERRY PITT MD V58.69 Long-term (current) Use Of Other Medications 02/25/2012 DIYA GODFREY APRN V58.69 Long-term (current) Use Of Other Medications 02/25/2012 TRAVIS MANCERA DO V58.69 Long-term (current) Use Of Other Medications 02/25/2012 BELINDA KHAN RN V58.69 Long-term (current) Use Of Other Medications 02/25/2012 BELINDA KHAN RN V58.69 Long-term (current) Use Of Other Medications 02/25/2012 BELINDA KHAN RN V58.69 Long-term (current) Use Of Other Medications 02/25/2012 JERRY PITT MD V58.69 Long-term (current) Use Of Other Medications 02/25/2012 YOLANDA MICHELLE APRN V58.69 Long-term (current) Use Of Other Medications 02/25/2012 JERRY PITT MD V58.69 Long-term (current) Use Of Other Medications 02/25/2012 YOLANDA MICHELLE APRN V58.69 Long-term (current) Use Of Other Medications 02/25/2012 LELAND BROWN MD V58.69 Long-term (current) Use Of Other Medications 02/25/2012 TRAVIS MANCERA DO V58.69 Long-term (current) Use Of Other Medications 03/02/2012 300.00 AN ANXIETY UNSPEC 03/02/2012 303.90 ALCOHOL DEPENDENCE 03/02/2012 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 03/02/2012 307.47 SI DYSSOMNIA NOS 03/02/2012 TRAVIS MANCERA DO 300.00 AN ANXIETY UNSPEC 03/02/2012 TRAVIS MANCERA DO 303.90 ALCOHOL DEPENDENCE 03/02/2012 TRAVIS MANCERA DO 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 03/02/2012 MANCERA DO, TRAVIS K 307.47 SI DYSSOMNIA NOS 03/02/2012 300.00 AN ANXIETY UNSPEC 03/02/2012 303.90 ALCOHOL DEPENDENCE 03/02/2012 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 03/02/2012 307.47 SI DYSSOMNIA NOS 03/02/2012 300.00 AN ANXIETY UNSPEC 03/02/2012 303.90 ALCOHOL DEPENDENCE 03/02/2012 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 03/02/2012 307.47 SI DYSSOMNIA NOS 03/02/2012 300.00 AN ANXIETY UNSPEC 03/02/2012 303.90 ALCOHOL DEPENDENCE 03/02/2012 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 03/02/2012 307.47 SI DYSSOMNIA NOS 03/02/2012 300.00 AN ANXIETY UNSPEC 03/02/2012 303.90 ALCOHOL DEPENDENCE 03/02/2012 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 03/02/2012 307.47 SI DYSSOMNIA NOS 03/02/2012 MEHUL WILLINGHAM MD, KALIN A 300.00 AN ANXIETY UNSPEC 03/02/2012 KALIN PELAYO MD A 303.90 ALCOHOL DEPENDENCE 03/02/2012 MEHUL WILLINGHAM MD, KALIN A 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 03/02/2012 KALIN PELAYO MD A 307.47 SI DYSSOMNIA NOS 03/02/2012 300.00 AN ANXIETY UNSPEC 03/02/2012 303.90 ALCOHOL DEPENDENCE 03/02/2012 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 03/02/2012 307.47 SI DYSSOMNIA NOS 03/02/2012 300.00 AN ANXIETY UNSPEC 03/02/2012 303.90 ALCOHOL DEPENDENCE 03/02/2012 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 03/02/2012 307.47 SI DYSSOMNIA NOS 03/02/2012 300.00 AN ANXIETY UNSPEC 03/02/2012 303.90 ALCOHOL DEPENDENCE 03/02/2012 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 03/02/2012 307.47 SI DYSSOMNIA NOS 03/02/2012 300.00 AN ANXIETY UNSPEC 03/02/2012 303.90 ALCOHOL DEPENDENCE 03/02/2012 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 03/02/2012 307.47 SI DYSSOMNIA NOS 03/02/2012 300.00 AN ANXIETY UNSPEC 03/02/2012 303.90 ALCOHOL DEPENDENCE 03/02/2012 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 03/02/2012 307.47 SI DYSSOMNIA NOS 03/02/2012 300.00 AN ANXIETY UNSPEC 03/02/2012 303.90 ALCOHOL DEPENDENCE 03/02/2012 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 03/02/2012 307.47 SI DYSSOMNIA NOS 03/02/2012 300.00 AN ANXIETY UNSPEC 03/02/2012 303.90 ALCOHOL DEPENDENCE 03/02/2012 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 03/02/2012 307.47 SI DYSSOMNIA NOS 03/02/2012 300.00 AN ANXIETY UNSPEC 03/02/2012 303.90 ALCOHOL DEPENDENCE 03/02/2012 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 03/02/2012 307.47 SI DYSSOMNIA NOS 03/02/2012 300.00 AN ANXIETY UNSPEC 03/02/2012 303.90 ALCOHOL DEPENDENCE 03/02/2012 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 03/02/2012 307.47 SI DYSSOMNIA NOS 03/02/2012 300.00 AN ANXIETY UNSPEC 03/02/2012 303.90 ALCOHOL DEPENDENCE 03/02/2012 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 03/02/2012 307.47 SI DYSSOMNIA NOS 03/02/2012 300.00 AN ANXIETY UNSPEC 03/02/2012 303.90 ALCOHOL DEPENDENCE 03/02/2012 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 03/02/2012 307.47 SI DYSSOMNIA NOS 03/02/2012 IBRAHIMA WATTS DO F 300.00 AN ANXIETY UNSPEC 03/02/2012 IBRAHIMA WATTS DO F 303.90 ALCOHOL DEPENDENCE 03/02/2012 IBRAHIMA WATTS DO F 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 03/02/2012 IBRAHIMA WATTS DO F 307.47 SI DYSSOMNIA NOS 03/02/2012 JERRY PITT MD N 300.00 AN ANXIETY UNSPEC 03/02/2012 JERRY PITT MD N 303.90 ALCOHOL DEPENDENCE 03/02/2012 JERRY PITT MD N 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 03/02/2012 JERRY PITT MD N 307.47 SI DYSSOMNIA NOS 03/02/2012 TRAVIS MANCERA DO 300.00 AN ANXIETY UNSPEC 03/02/2012 TRAVIS MANCERA DO K 303.90 ALCOHOL DEPENDENCE 03/02/2012 TRAVIS MANCERA DO K 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 03/02/2012 HOLLY MANCERA DOA K 307.47 SI DYSSOMNIA NOS 03/02/2012 HOLLY MANCERA DOA K 300.00 AN ANXIETY UNSPEC 03/02/2012 MANCERA DO, TRAVIS K 303.90 ALCOHOL DEPENDENCE 03/02/2012 MANCERA DO, TRAVIS K 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 03/02/2012 MANCERA DO, TRAVIS K 307.47 SI DYSSOMNIA NOS 03/02/2012 MANCERA DO, TRAVIS K 300.00 AN ANXIETY UNSPEC 03/02/2012 MANCERA DO, TRAVIS K 303.90 ALCOHOL DEPENDENCE 03/02/2012 MANCERA DO, TRAVIS K 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 03/02/2012 MANCERA , TRAVIS K 307.47 SI DYSSOMNIA NOS 03/02/2012 MANCERA DO, TRAVIS K 300.00 AN ANXIETY UNSPEC 03/02/2012 MANCERA DO, TRAVIS K 303.90 ALCOHOL DEPENDENCE 03/02/2012 MANCERA DO, TRAVIS K 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 03/02/2012 MANCERA DO, TRAVIS K 307.47 SI DYSSOMNIA NOS 03/02/2012 SANTY VALLEJO APRN 300.00 AN ANXIETY UNSPEC 03/02/2012 SANTY VALLEJO APRN 303.90 ALCOHOL DEPENDENCE 03/02/2012 SANTY VALLEJO APRN 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 03/02/2012 SANTY VALLEJO APRN 307.47 SI DYSSOMNIA NOS 03/02/2012 CALDERON MCGILL, TRAVIS K 300.00 AN ANXIETY UNSPEC 03/02/2012 CALDERON MCGILL, TRAVIS K 303.90 ALCOHOL DEPENDENCE 03/02/2012 CALDERON MCGILL, TRAVIS K 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 03/02/2012 CALDERON MCGILL, TRAVIS K 307.47 SI DYSSOMNIA NOS 03/02/2012 JERRY PITT MD 300.00 AN ANXIETY UNSPEC 03/02/2012 JERRY PITT MD 303.90 ALCOHOL DEPENDENCE 03/02/2012 JERRY PITT MD 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 03/02/2012 JERRY PITT MD 307.47 SI DYSSOMNIA NOS 03/02/2012 SANTY VALLEJO APRN 300.00 AN ANXIETY UNSPEC 03/02/2012 SANTY VALLEJO APRN 303.90 ALCOHOL DEPENDENCE 03/02/2012 SANTY VALLEJO APRN 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 03/02/2012 SANTY VALLEJO APRN 307.47 SI DYSSOMNIA NOS 03/02/2012 JERRY PITT MD N 300.00 AN ANXIETY UNSPEC 03/02/2012 JERRY PITT MD 303.90 ALCOHOL DEPENDENCE 03/02/2012 JERRY PITT MD N 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 03/02/2012 JERRY PITT MD N 307.47 SI DYSSOMNIA NOS 03/02/2012 SANTY VALLEJO APRN 300.00 AN ANXIETY UNSPEC 03/02/2012 SANTY VALLEJO APRN 303.90 ALCOHOL DEPENDENCE 03/02/2012 SANTY VALLEJO APRN 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 03/02/2012 SANTY VALLEJO APRN 307.47 SI DYSSOMNIA NOS 03/02/2012 JERRY PITT MD N 300.00 AN ANXIETY UNSPEC 03/02/2012 JERRY PITT MD 303.90 ALCOHOL DEPENDENCE 03/02/2012 JERRY PITT MD N 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 03/02/2012 JERRY PITT MD N 307.47 SI DYSSOMNIA NOS 03/02/2012 JERRY PITT MD N 300.00 AN ANXIETY UNSPEC 03/02/2012 JERRY PITT MD N 303.90 ALCOHOL DEPENDENCE 03/02/2012 JERRY PITT MD N 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 03/02/2012 JERRY PITT MD N 307.47 SI DYSSOMNIA NOS 03/02/2012 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, 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 300.00 AN ANXIETY UNSPEC 03/02/2012 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, DIYA 303.90 ALCOHOL DEPENDENCE 03/02/2012 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, DIYA 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 03/02/2012 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, DIYA 307.47 SI DYSSOMNIA NOS 03/02/2012 JERRY PITT MD N 300.00 AN ANXIETY UNSPEC 03/02/2012 JERRY PITT MD N 303.90 ALCOHOL DEPENDENCE 03/02/2012 JERRY PITT MD N 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 03/02/2012 JERRY PITT MD N 307.47 SI DYSSOMNIA NOS 03/02/2012 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, DIYA 300.00 AN ANXIETY UNSPEC 03/02/2012 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, DIYA 303.90 ALCOHOL DEPENDENCE 03/02/2012 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, 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 03/02/2012 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, DIYA 307.47 SI DYSSOMNIA NOS 03/02/2012 CALDERON MCGILL, TRAVIS K 300.00 AN ANXIETY UNSPEC 03/02/2012 MANCERA , TRAVIS K 303.90 ALCOHOL DEPENDENCE 03/02/2012 CALDERON MCGILL, TRAVIS K 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 03/02/2012 CALDERON MCGILL, TRAVIS K 307.47 SI DYSSOMNIA NOS 03/02/2012 ERIN DIEGO, BELINDA E 300.00 AN ANXIETY UNSPEC 03/02/2012 ERIN DIEGO, BELINDA E 303.90 ALCOHOL DEPENDENCE 03/02/2012 ERIN DIEGO, BELINDA E 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 03/02/2012 ERIN DIEGO, BELINDA E 307.47 SI DYSSOMNIA NOS 03/02/2012 ERIN DIEGO, BELINDA E 300.00 AN ANXIETY UNSPEC 03/02/2012 ERIN DIEGO, BELINDA E 303.90 ALCOHOL DEPENDENCE 03/02/2012 ERIN DIEGO, BELINDA E 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 03/02/2012 ERIN DIEGO, BELINDA E 307.47 SI DYSSOMNIA NOS 03/02/2012 ERIN DIEGO, BELINDA E 300.00 AN ANXIETY UNSPEC 03/02/2012 ERIN DIEGO, BELINDA E 303.90 ALCOHOL DEPENDENCE 03/02/2012 ERIN RN, BELINDA E 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 03/02/2012 ERIN DIEGO, BELINDA E 307.47 SI DYSSOMNIA NOS 03/02/2012 JERRY PITT MD N 300.00 AN ANXIETY UNSPEC 03/02/2012 JERRY PITT MD N 303.90 ALCOHOL DEPENDENCE 03/02/2012 JERRY PITT MD N 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 03/02/2012 JERRY PITT MD N 307.47 SI DYSSOMNIA NOS 03/02/2012 MIGUEL ANGEL PANDYA YOLANDA R 300.00 AN ANXIETY UNSPEC 03/02/2012 YOLANDA MICHELLE APRN R 303.90 ALCOHOL DEPENDENCE 03/02/2012 MIGUEL ANGEL PANDYA, YOLANDA R 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 03/02/2012 MIGUEL ANGEL PANDYA YOLANDA R 307.47 SI DYSSOMNIA NOS 03/02/2012 JERRY PITT MD N 300.00 AN ANXIETY UNSPEC 03/02/2012 JERRY PITT MD N 303.90 ALCOHOL DEPENDENCE 03/02/2012 YOANDY GUTIERREZ, JERRY N 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 03/02/2012 YOANDY GUTIERREZ, JERRY N 307.47 SI DYSSOMNIA NOS 03/02/2012 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, YOLANDA R 300.00 AN ANXIETY UNSPEC 03/02/2012 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, YOLANDA R 303.90 ALCOHOL DEPENDENCE 03/02/2012 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, YOLANDA R 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 03/02/2012 MIGUEL ANGEL PANDYA, YOLANDA R 307.47 SI DYSSOMNIA NOS 03/02/2012 LELAND BROWN MD 300.00 AN ANXIETY UNSPEC 03/02/2012 KEVIN GUTIERREZ, LELAND 303.90 ALCOHOL DEPENDENCE 03/02/2012 LELAND BROWN MD 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 03/02/2012 LELAND BROWN MD 307.47 SI DYSSOMNIA NOS 03/02/2012 CALDERON MCGILL TRAVIS K 300.00 AN ANXIETY UNSPEC 03/02/2012 CALDERON MCGILL TRAVIS K 303.90 ALCOHOL DEPENDENCE 03/02/2012 CALDERON MCGILL TRAVIS K 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 03/02/2012 MANCERA DO, TRAVIS K 307.47 SI DYSSOMNIA NOS 03/06/2012 MANCERA DO, TRAVIS K 682.6 CELLULITIS AND ABSCESS OF LEG EXCEPT FOOT 03/06/2012 682.6 CELLULITIS AND ABSCESS OF LEG EXCEPT FOOT 03/06/2012 682.6 CELLULITIS AND ABSCESS OF LEG EXCEPT FOOT 03/06/2012 682.6 CELLULITIS AND ABSCESS OF LEG EXCEPT FOOT 03/06/2012 682.6 Cellulitis And Abscess Of Leg Except Foot 03/06/2012 MEHUL WILLINGHAM MD, ALBION A 682.6 Cellulitis And Abscess Of Leg Except Foot 03/06/2012 682.6 Cellulitis And Abscess Of Leg Except Foot 03/06/2012 682.6 Cellulitis And Abscess Of Leg Except Foot 03/06/2012 682.6 Cellulitis And Abscess Of Leg Except Foot 03/06/2012 682.6 Cellulitis And Abscess Of Leg Except Foot 03/06/2012 682.6 Cellulitis And Abscess Of Leg Except Foot 03/06/2012 682.6 Cellulitis And Abscess Of Leg Except Foot 03/06/2012 682.6 Cellulitis And Abscess Of Leg Except Foot 03/06/2012 682.6 Cellulitis And Abscess Of Leg Except Foot 03/06/2012 682.6 Cellulitis And Abscess Of Leg Except Foot 03/06/2012 682.6 Cellulitis And Abscess Of Leg Except Foot 03/06/2012 682.6 Cellulitis And Abscess Of Leg Except Foot 03/06/2012 IBRAHIMA WATTS DO 682.6 Cellulitis And Abscess Of Leg Except Foot 03/06/2012 JERRY PITT MD 682.6 Cellulitis And Abscess Of Leg Except Foot 03/06/2012 TRAVIS MANCERA DO K 682.6 Cellulitis And Abscess Of Leg Except Foot 03/06/2012 MANCERA DOHOLLYA K 682.6 Cellulitis And Abscess Of Leg Except Foot 03/06/2012 MANCERA DOHOLLYA K 682.6 Cellulitis And Abscess Of Leg Except Foot 03/06/2012 MANCERA DOHOLLYA K 682.6 Cellulitis And Abscess Of Leg Except Foot 03/06/2012 SANTY VALLEJO APRN 682.6 Cellulitis And Abscess Of Leg Except Foot 03/06/2012 TRAVIS MANCERA DO 682.6 Cellulitis And Abscess Of Leg Except Foot 03/06/2012 JERRY PITT MD 682.6 Cellulitis And Abscess Of Leg Except Foot 03/06/2012 SANTY VALLEJO APRN 682.6 Cellulitis And Abscess Of Leg Except Foot 03/06/2012 JERRY PITT MD 682.6 Cellulitis And Abscess Of Leg Except Foot 03/06/2012 SANTY VALLEJO APRN 682.6 Cellulitis And Abscess Of Leg Except Foot 03/06/2012 JERRY PITT MD 682.6 Cellulitis And Abscess Of Leg Except Foot 03/06/2012 JERRY PITT MD 682.6 Cellulitis And Abscess Of Leg Except Foot 03/06/2012 DIYA GODFREY APRN 682.6 Cellulitis And Abscess Of Leg Except Foot 03/06/2012 JERRY PITT MD 682.6 Cellulitis And Abscess Of Leg Except Foot 03/06/2012 DIYA GODFREY APRN 682.6 Cellulitis And Abscess Of Leg Except Foot 03/06/2012 TRAVIS MANCERA DO 682.6 Cellulitis And Abscess Of Leg Except Foot 03/06/2012 ERIN DIEGO, BELINDA E 682.6 Cellulitis And Abscess Of Leg Except Foot 03/06/2012 ERIN DIEGO, BELINDA E 682.6 Cellulitis And Abscess Of Leg Except Foot 03/06/2012 ERIN DIEGO, EBLINDA E 682.6 Cellulitis And Abscess Of Leg Except Foot 03/06/2012 JERRY PITT MD N 682.6 Cellulitis And Abscess Of Leg Except Foot 03/06/2012 MIGUEL ANGEL PANDYA, YOLANDA R 682.6 Cellulitis And Abscess Of Leg Except Foot 03/06/2012 YOANDY GUTIERREZ, JERRY N 682.6 Cellulitis And Abscess Of Leg Except Foot 03/06/2012 MIGUEL ANGEL PANDYA, YOLANDA R 682.6 Cellulitis And Abscess Of Leg Except Foot 03/06/2012 LELAND BROWN MD 682.6 Cellulitis And Abscess Of Leg Except Foot 03/06/2012 TRAVIS MANCERA DO 682.6 Cellulitis And Abscess Of Leg Except Foot 03/22/2012 Ot 296.80 BIPOLAR DISORDER, UNSPECIFIED 03/22/2012 Ot 305.1 TOBACCO USE DISORDER 03/22/2012 Ot 401.9 HYPERTENSION NOS 03/22/2012 Ot 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 03/22/2012 Ot V58.69 OTH MED,LT,CURRENT USE 03/22/2012 Ot V90.9 RETAINED FOREIGN BODY, UNSPECIFIED MATER 05/16/2012 214.9 LIPOMA 05/16/2012 719.43 PAIN- WRIST 05/16/2012 MEHUL WILLINGHAM MD, KALIN Cornejo 214.9 LIPOMA 05/16/2012 KALIN PELAYO MD 719.43 PAIN- WRIST 05/16/2012 214.9 LIPOMA 05/16/2012 719.43 PAIN- WRIST 05/16/2012 214.9 LIPOMA 05/16/2012 719.43 PAIN- WRIST 05/16/2012 214.9 LIPOMA 05/16/2012 719.43 PAIN- WRIST 05/16/2012 214.9 LIPOMA 05/16/2012 719.43 PAIN- WRIST 05/16/2012 214.9 LIPOMA 05/16/2012 719.43 PAIN- WRIST 05/16/2012 214.9 LIPOMA 05/16/2012 719.43 PAIN- WRIST 05/16/2012 214.9 LIPOMA 05/16/2012 719.43 PAIN- WRIST 05/16/2012 214.9 LIPOMA 05/16/2012 719.43 PAIN- WRIST 05/16/2012 214.9 LIPOMA 05/16/2012 719.43 PAIN- WRIST 05/16/2012 214.9 LIPOMA 05/16/2012 719.43 PAIN- WRIST 05/16/2012 214.9 LIPOMA 05/16/2012 719.43 PAIN- WRIST 05/16/2012 WERDER DO IBRAHIMA F 214.9 LIPOMA 05/16/2012 WERDER DO, IBRAHIMA F 719.43 PAIN- WRIST 05/16/2012 JERRY PITT MD N 214.9 LIPOMA 05/16/2012 JERRY PITT MD 719.43 PAIN- WRIST 05/16/2012 MANCERA DO, TRAVIS K 214.9 LIPOMA 05/16/2012 MANCERA DO, TRAVIS K 719.43 PAIN- WRIST 05/16/2012 MANCERA DO, TRAVIS K 214.9 LIPOMA 05/16/2012 MANCERA DO, TRAVIS K 719.43 PAIN- WRIST 05/16/2012 MANCERA DO, TRAVIS K 214.9 LIPOMA 05/16/2012 MANCERA DO, TRAVIS K 719.43 PAIN- WRIST 05/16/2012 MANCERA DO, TRAVIS K 214.9 LIPOMA 05/16/2012 MANCERA DO, TRAVIS K 719.43 PAIN- WRIST 05/16/2012 SANTY VALLEJO APRN 214.9 LIPOMA 05/16/2012 SANTY VALLEJO APRN 719.43 PAIN- WRIST 05/16/2012 MANCERA DO, TRAVIS K 214.9 LIPOMA 05/16/2012 MANCERA DO, TRAVIS K 719.43 PAIN- WRIST 05/16/2012 JERRY PITT MD 214.9 LIPOMA 05/16/2012 JERRY PITT MD 719.43 PAIN- WRIST 05/16/2012 SANTY VALLEJO APRN 214.9 LIPOMA 05/16/2012 SANTY VALLEJO APRN 719.43 PAIN- WRIST 05/16/2012 JERRY PITT MD N 214.9 LIPOMA 05/16/2012 JERRY PITT MD 719.43 PAIN- WRIST 05/16/2012 SANTY VALLEJO APRN 214.9 LIPOMA 05/16/2012 SANTY VALLEJO APRN 719.43 PAIN- WRIST 05/16/2012 JERRY PITT MD N 214.9 LIPOMA 05/16/2012 JERRY PITT MD 719.43 PAIN- WRIST 05/16/2012 JERRY PITT MD N 214.9 LIPOMA 05/16/2012 JERRY PITT MD 719.43 PAIN- WRIST 05/16/2012 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, DIYA 214.9 LIPOMA 05/16/2012 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, DYIA 719.43 PAIN- WRIST 05/16/2012 JERRY PITT MD N 214.9 LIPOMA 05/16/2012 JERRY PITT MD N 719.43 PAIN- WRIST 05/16/2012 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, DIYA 214.9 LIPOMA 05/16/2012 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, DIYA 719.43 PAIN- WRIST 05/16/2012 MANCERA DO, TRAVIS K 214.9 LIPOMA 05/16/2012 MANCERA DO, TRAVIS K 719.43 PAIN- WRIST 05/16/2012 ERIN DIEGO, BELINDA E 214.9 LIPOMA 05/16/2012 ERIN DIEGO, BELINDA E 719.43 PAIN- WRIST 05/16/2012 ERIN DIEGO, BELINDA E 214.9 LIPOMA 05/16/2012 ERIN DIEGO, BELINDA E 719.43 PAIN- WRIST 05/16/2012 ERIN DIEGO, BELINDA E 214.9 LIPOMA 05/16/2012 ERIN DIEGO, BELINDA E 719.43 PAIN- WRIST 05/16/2012 JERRY PITT MD N 214.9 LIPOMA 05/16/2012 JERRY PITT MD 719.43 PAIN- WRIST 05/16/2012 YOLANDA MICHELLE APRN R 214.9 LIPOMA 05/16/2012 YOLANDA MICHELLE APRN 719.43 PAIN- WRIST 05/16/2012 JERRY PITT MD N 214.9 LIPOMA 05/16/2012 JERRY PITT MD 719.43 PAIN- WRIST 05/16/2012 YOLANDA MICHELLE APRN R 214.9 LIPOMA 05/16/2012 YOLANDA MICHELLE APRN 719.43 PAIN- WRIST 05/16/2012 KEVIN GUTIERREZ, LELAND 214.9 LIPOMA 05/16/2012 LELAND BROWN MD 719.43 PAIN- WRIST 05/16/2012 MANCERA DO, TRAVIS K 214.9 LIPOMA 05/16/2012 MANCERA DO, TRAVIS K 719.43 PAIN- WRIST 06/09/2012 V58.69 MEDICATION HIGH RISK 06/09/2012 V58.69 MEDICATION HIGH RISK 06/09/2012 V58.69 MEDICATION HIGH RISK 06/09/2012 V58.69 MEDICATION HIGH RISK 06/09/2012 V58.69 MEDICATION HIGH RISK 06/09/2012 V58.69 MEDICATION HIGH RISK 06/09/2012 V58.69 MEDICATION HIGH RISK 06/09/2012 V58.69 MEDICATION HIGH RISK 06/09/2012 V58.69 MEDICATION HIGH RISK 06/09/2012 V58.69 MEDICATION HIGH RISK 06/09/2012 V58.69 MEDICATION HIGH RISK 06/09/2012 IBRAHIMA WATTS DO V58.69 MEDICATION HIGH RISK 06/09/2012 JERRY PITT MD V58.69 MEDICATION HIGH RISK 06/09/2012 MANCERA DO TRAVIS K V58.69 MEDICATION HIGH RISK 06/09/2012 MANCERA DO, TRAVIS K V58.69 MEDICATION HIGH RISK 06/09/2012 MANCERA DO TRAVIS K V58.69 MEDICATION HIGH RISK 06/09/2012 MANCERA DO, TRAVIS K V58.69 MEDICATION HIGH RISK 06/09/2012 SANTY VALLEJO APRN V58.69 MEDICATION HIGH RISK 06/09/2012 MANCERA DO TRAVIS K V58.69 MEDICATION HIGH RISK 06/09/2012 JERRY PITT MD V58.69 MEDICATION HIGH RISK 06/09/2012 SANTY VALLEJO APRN V58.69 MEDICATION HIGH RISK 06/09/2012 JERRY PITT MD V58.69 MEDICATION HIGH RISK 06/09/2012 SANTY VALLEJO APRN V58.69 MEDICATION HIGH RISK 06/09/2012 JERRY PITT MD V58.69 MEDICATION HIGH RISK 06/09/2012 JERRY PITT MD V58.69 MEDICATION HIGH RISK 06/09/2012 DIYA GODFREY APRN V58.69 MEDICATION HIGH RISK 06/09/2012 YOANDY GUTIERREZ, JERRY Aldana V58.69 MEDICATION HIGH RISK 06/09/2012 DIYA GODFREY APRN V58.69 MEDICATION HIGH RISK 06/09/2012 TRAVIS MANCERA DO K V58.69 MEDICATION HIGH RISK 06/09/2012 ERIN DIEGO, BELINDA E V58.69 MEDICATION HIGH RISK 06/09/2012 ERIN DIEGO, BELINDA E V58.69 MEDICATION HIGH RISK 06/09/2012 ERIN DIEGO, BELINDA E V58.69 MEDICATION HIGH RISK 06/09/2012 YOANDY GUTIERREZ, JERRY Aldana V58.69 MEDICATION HIGH RISK 06/09/2012 MIGUEL ANGEL PANDYA, YOLANDA R V58.69 MEDICATION HIGH RISK 06/09/2012 JERRY PITT MD V58.69 MEDICATION HIGH RISK 06/09/2012 MIGUEL ANGEL PANDYA, YOLANDA R V58.69 MEDICATION HIGH RISK 06/09/2012 KEVIN GUTIERREZ, LELAND V58.69 MEDICATION HIGH RISK 06/09/2012 TRAVIS MANCERA DO K V58.69 MEDICATION HIGH RISK 06/12/2012 V25.2 VASECTOMY 06/12/2012 V25.2 VASECTOMY 06/12/2012 V25.2 VASECTOMY 06/12/2012 V25.2 VASECTOMY 06/12/2012 V25.2 VASECTOMY 06/12/2012 V25.2 VASECTOMY 06/12/2012 V25.2 VASECTOMY 06/12/2012 V25.2 VASECTOMY 06/12/2012 V25.2 VASECTOMY 06/12/2012 V25.2 VASECTOMY 06/12/2012 V25.2 VASECTOMY 06/12/2012 IBRAHIMA WATTS DO V25.2 VASECTOMY 06/12/2012 JERRY PITT MD V25.2 VASECTOMY 06/12/2012 TRAVIS MANCERA DO K V25.2 VASECTOMY 06/12/2012 HOLLY MANCERA DOA K V25.2 VASECTOMY 06/12/2012 HOLLY MANCERA DOA K V25.2 VASECTOMY 06/12/2012 MANCERA HOLLY MCGILLA K V25.2 VASECTOMY 06/12/2012 SANTY VALLEJO APRN V25.2 VASECTOMY 06/12/2012 HOLLY MANCERA DOA K V25.2 VASECTOMY 06/12/2012 JERRY PITT MD V25.2 VASECTOMY 06/12/2012 SANTY VALLEJO APRN V25.2 VASECTOMY 06/12/2012 YOANDY GUTIERREZ, JERRY Aldana V25.2 VASECTOMY 06/12/2012 SANTY VALLEJO APRN V25.2 VASECTOMY 06/12/2012 JERRY PITT MD V25.2 VASECTOMY 06/12/2012 JERRY PITT MD V25.2 VASECTOMY 06/12/2012 BEKAH PANDYA, DIYA V25.2 VASECTOMY 06/12/2012 JERRY PITT MD V25.2 VASECTOMY 06/12/2012 BEKAH PANDYA, DIYA V25.2 VASECTOMY 06/12/2012 TRAVIS MANCERA DO V25.2 VASECTOMY 06/12/2012 ERIN DIEGO, BELINDA E V25.2 VASECTOMY 06/12/2012 ERIN DIEGO, BELINDA E V25.2 VASECTOMY 06/12/2012 ERIN DIEGO, BELINDA E V25.2 VASECTOMY 06/12/2012 JERRY PITT MD V25.2 VASECTOMY 06/12/2012 MIGUEL ANGEL PANDYA, YOLANDA R V25.2 VASECTOMY 06/12/2012 JERRY PITT MD V25.2 VASECTOMY 06/12/2012 MIGUEL ANGEL PANDYA, YOLANDA R V25.2 VASECTOMY 06/12/2012 KEVIN GUTIERREZ, BASCYNDY V25.2 VASECTOMY 06/12/2012 TRAVIS MANCERA DO V25.2 VASECTOMY 07/28/2012 272.0 HYPERCHOLESTEROLEMIA 07/28/2012 272.0 HYPERCHOLESTEROLEMIA 07/28/2012 272.0 HYPERCHOLESTEROLEMIA 07/28/2012 272.0 HYPERCHOLESTEROLEMIA 07/28/2012 272.0 HYPERCHOLESTEROLEMIA 07/28/2012 272.0 HYPERCHOLESTEROLEMIA 07/28/2012 272.0 HYPERCHOLESTEROLEMIA 07/28/2012 IBRAHIMA WATTS DO 272.0 HYPERCHOLESTEROLEMIA 07/28/2012 JERRY PITT MD 272.0 HYPERCHOLESTEROLEMIA 07/28/2012 CALDERON DOTRAVIS 272.0 HYPERCHOLESTEROLEMIA 07/28/2012 MANCERA DO, TRAVIS K 272.0 HYPERCHOLESTEROLEMIA 07/28/2012 MANCERA DO, TRAVIS K 272.0 HYPERCHOLESTEROLEMIA 07/28/2012 MANCERA DO, TRAVIS K 272.0 HYPERCHOLESTEROLEMIA 07/28/2012 SANTY VALLEJO APRN 272.0 HYPERCHOLESTEROLEMIA 07/28/2012 MANCERA DO, TRAVIS K 272.0 HYPERCHOLESTEROLEMIA 07/28/2012 YOANDY GUTIERREZ, JERRY N 272.0 HYPERCHOLESTEROLEMIA 07/28/2012 SANTY VALLEJO APRN D 272.0 HYPERCHOLESTEROLEMIA 07/28/2012 YOANDY GUTIERREZ, JERRY N 272.0 HYPERCHOLESTEROLEMIA 07/28/2012 SANTY VALLEJO APRN 272.0 HYPERCHOLESTEROLEMIA 07/28/2012 YOANDY GUTIERREZ, JERRY N 272.0 HYPERCHOLESTEROLEMIA 07/28/2012 YOANDY GUTIERREZ, JERRY N 272.0 HYPERCHOLESTEROLEMIA 07/28/2012 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, DIYA 272.0 HYPERCHOLESTEROLEMIA 07/28/2012 YOANDY GUTIERREZ, JERRY N 272.0 HYPERCHOLESTEROLEMIA 07/28/2012 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, DIYA 272.0 HYPERCHOLESTEROLEMIA 07/28/2012 MANCERA DO, TRAVIS K 272.0 HYPERCHOLESTEROLEMIA 07/28/2012 ERIN DIEGO, BELINDA E 272.0 HYPERCHOLESTEROLEMIA 07/28/2012 ERIN DIEGO, BELINDA E 272.0 HYPERCHOLESTEROLEMIA 07/28/2012 ERIN DIEGO, BELINDA E 272.0 HYPERCHOLESTEROLEMIA 07/28/2012 YOANDY GUTIERREZ, JERRY N 272.0 HYPERCHOLESTEROLEMIA 07/28/2012 MIGUEL ANGEL PANDYA, YOLANDA R 272.0 HYPERCHOLESTEROLEMIA 07/28/2012 JERRY PITT MD N 272.0 HYPERCHOLESTEROLEMIA 07/28/2012 MIGUEL ANGEL PANDYA, YOLANDA R 272.0 HYPERCHOLESTEROLEMIA 07/28/2012 KEVIN GUTIERREZ, BASCYNDY 272.0 HYPERCHOLESTEROLEMIA 07/28/2012 MANCERA DO, TRAVIS K 272.0 HYPERCHOLESTEROLEMIA 08/03/2012 692.9 CONTACT DERMATITIS AND OTHER ECZEMA UNSPECIFIED CAUSE 08/03/2012 698.9 UNSPECIFIED PRURITIC DISORDER 08/03/2012 919.4 INSECT BITE NONVENOMOUS OF OTHER MULTIPLE AND UNSPECIFIED SITES WITHOUT INFECTION 08/03/2012 692.9 CONTACT DERMATITIS AND OTHER ECZEMA UNSPECIFIED CAUSE 08/03/2012 698.9 UNSPECIFIED PRURITIC DISORDER 08/03/2012 919.4 INSECT BITE NONVENOMOUS OF OTHER MULTIPLE AND UNSPECIFIED SITES WITHOUT INFECTION 08/03/2012 692.9 CONTACT DERMATITIS AND OTHER ECZEMA UNSPECIFIED CAUSE 08/03/2012 698.9 UNSPECIFIED PRURITIC DISORDER 08/03/2012 919.4 INSECT BITE NONVENOMOUS OF OTHER MULTIPLE AND UNSPECIFIED SITES WITHOUT INFECTION 08/03/2012 692.9 CONTACT DERMATITIS AND OTHER ECZEMA UNSPECIFIED CAUSE 08/03/2012 698.9 UNSPECIFIED PRURITIC DISORDER 08/03/2012 919.4 INSECT BITE NONVENOMOUS OF OTHER MULTIPLE AND UNSPECIFIED SITES WITHOUT INFECTION 08/03/2012 692.9 CONTACT DERMATITIS AND OTHER ECZEMA UNSPECIFIED CAUSE 08/03/2012 698.9 UNSPECIFIED PRURITIC DISORDER 08/03/2012 919.4 INSECT BITE NONVENOMOUS OF OTHER MULTIPLE AND UNSPECIFIED SITES WITHOUT INFECTION 08/03/2012 WERDER DO, IBRAHIMA F 692.9 CONTACT DERMATITIS AND OTHER ECZEMA UNSPECIFIED CAUSE 08/03/2012 WERDER DO, IBRAHIMA F 698.9 UNSPECIFIED PRURITIC DISORDER 08/03/2012 WERDER DO, IBRAHIMA F 919.4 INSECT BITE NONVENOMOUS OF OTHER MULTIPLE AND UNSPECIFIED SITES WITHOUT INFECTION 08/03/2012 JERRY PITT MD N 692.9 CONTACT DERMATITIS AND OTHER ECZEMA UNSPECIFIED CAUSE 08/03/2012 JERRY PITT MD N 698.9 UNSPECIFIED PRURITIC DISORDER 08/03/2012 JERRY PITT MD N 919.4 INSECT BITE NONVENOMOUS OF OTHER MULTIPLE AND UNSPECIFIED SITES WITHOUT INFECTION 08/03/2012 MANCERA DO, TRAVIS K 692.9 CONTACT DERMATITIS AND OTHER ECZEMA UNSPECIFIED CAUSE 08/03/2012 MANCERA DO, TRAVIS K 698.9 UNSPECIFIED PRURITIC DISORDER 08/03/2012 MANCERA DO, TRAVIS K 919.4 INSECT BITE NONVENOMOUS OF OTHER MULTIPLE AND UNSPECIFIED SITES WITHOUT INFECTION 08/03/2012 MANCERA DO, TRAVIS K 692.9 CONTACT DERMATITIS AND OTHER ECZEMA UNSPECIFIED CAUSE 08/03/2012 MANCERA DO, TRAVIS K 698.9 UNSPECIFIED PRURITIC DISORDER 08/03/2012 MANCERA DO, TRAVIS K 919.4 INSECT BITE NONVENOMOUS OF OTHER MULTIPLE AND UNSPECIFIED SITES WITHOUT INFECTION 08/03/2012 MANCERA DO, TRAVIS K 692.9 CONTACT DERMATITIS AND OTHER ECZEMA UNSPECIFIED CAUSE 08/03/2012 MANCERA DO, TRAVIS K 698.9 UNSPECIFIED PRURITIC DISORDER 08/03/2012 MANCERA DO, TRAVIS K 919.4 INSECT BITE NONVENOMOUS OF OTHER MULTIPLE AND UNSPECIFIED SITES WITHOUT INFECTION 08/03/2012 MANCERA DO, TRAVIS K 692.9 CONTACT DERMATITIS AND OTHER ECZEMA UNSPECIFIED CAUSE 08/03/2012 MANCERA DO, TRAVIS K 698.9 UNSPECIFIED PRURITIC DISORDER 08/03/2012 MANCERA DO, TRAVIS K 919.4 INSECT BITE NONVENOMOUS OF OTHER MULTIPLE AND UNSPECIFIED SITES WITHOUT INFECTION 08/03/2012 SANTY VALLEJO APRN 692.9 CONTACT DERMATITIS AND OTHER ECZEMA UNSPECIFIED CAUSE 08/03/2012 SANTY VALLEJO APRN 698.9 UNSPECIFIED PRURITIC DISORDER 08/03/2012 SANTY VALLEJO APRN 919.4 INSECT BITE NONVENOMOUS OF OTHER MULTIPLE AND UNSPECIFIED SITES WITHOUT INFECTION 08/03/2012 MANCERA DO, TRAVIS K 692.9 CONTACT DERMATITIS AND OTHER ECZEMA UNSPECIFIED CAUSE 08/03/2012 MANCERA DO, TRAVIS K 698.9 UNSPECIFIED PRURITIC DISORDER 08/03/2012 MANCERA DO, TRAVIS K 919.4 INSECT BITE NONVENOMOUS OF OTHER MULTIPLE AND UNSPECIFIED SITES WITHOUT INFECTION 08/03/2012 JERRY PITT MD 692.9 CONTACT DERMATITIS AND OTHER ECZEMA UNSPECIFIED CAUSE 08/03/2012 JERRY PITT MD 698.9 UNSPECIFIED PRURITIC DISORDER 08/03/2012 JERRY PITT MD 919.4 INSECT BITE NONVENOMOUS OF OTHER MULTIPLE AND UNSPECIFIED SITES WITHOUT INFECTION 08/03/2012 SANTY VALLEJO APRN 692.9 CONTACT DERMATITIS AND OTHER ECZEMA UNSPECIFIED CAUSE 08/03/2012 SANTY VALLEJO APRN 698.9 UNSPECIFIED PRURITIC DISORDER 08/03/2012 SANTY VALLEJO APRN 919.4 INSECT BITE NONVENOMOUS OF OTHER MULTIPLE AND UNSPECIFIED SITES WITHOUT INFECTION 08/03/2012 JERRY PITT MD 692.9 CONTACT DERMATITIS AND OTHER ECZEMA UNSPECIFIED CAUSE 08/03/2012 JERRY PITT MD 698.9 UNSPECIFIED PRURITIC DISORDER 08/03/2012 JERRY PITT MD N 919.4 INSECT BITE NONVENOMOUS OF OTHER MULTIPLE AND UNSPECIFIED SITES WITHOUT INFECTION 08/03/2012 SANTY VALLEJO APRN 692.9 CONTACT DERMATITIS AND OTHER ECZEMA UNSPECIFIED CAUSE 08/03/2012 SANTY VALLEJO APRN 698.9 UNSPECIFIED PRURITIC DISORDER 08/03/2012 SANTY VALLEJO APRN 919.4 INSECT BITE NONVENOMOUS OF OTHER MULTIPLE AND UNSPECIFIED SITES WITHOUT INFECTION 08/03/2012 JERRY PITT MD 692.9 CONTACT DERMATITIS AND OTHER ECZEMA UNSPECIFIED CAUSE 08/03/2012 JERRY PITT MD 698.9 UNSPECIFIED PRURITIC DISORDER 08/03/2012 JERRY PITT MD 919.4 INSECT BITE NONVENOMOUS OF OTHER MULTIPLE AND UNSPECIFIED SITES WITHOUT INFECTION 08/03/2012 JERRY PITT MD 692.9 CONTACT DERMATITIS AND OTHER ECZEMA UNSPECIFIED CAUSE 08/03/2012 JERRY PITT MD 698.9 UNSPECIFIED PRURITIC DISORDER 08/03/2012 JERRY PITT MD 919.4 INSECT BITE NONVENOMOUS OF OTHER MULTIPLE AND UNSPECIFIED SITES WITHOUT INFECTION 08/03/2012 DIYA GODFREY APRN 692.9 CONTACT DERMATITIS AND OTHER ECZEMA UNSPECIFIED CAUSE 08/03/2012 BEKAH PANDYA DIYA 698.9 UNSPECIFIED PRURITIC DISORDER 08/03/2012 BEKAH YA, DIYA 919.4 INSECT BITE NONVENOMOUS OF OTHER MULTIPLE AND UNSPECIFIED SITES WITHOUT INFECTION 08/03/2012 JERRY PITT MD N 692.9 CONTACT DERMATITIS AND OTHER ECZEMA UNSPECIFIED CAUSE 08/03/2012 JERRY PITT MD N 698.9 UNSPECIFIED PRURITIC DISORDER 08/03/2012 JERRY PITT MD N 919.4 INSECT BITE NONVENOMOUS OF OTHER MULTIPLE AND UNSPECIFIED SITES WITHOUT INFECTION 08/03/2012 BEKAH PANDYA DIYA 692.9 CONTACT DERMATITIS AND OTHER ECZEMA UNSPECIFIED CAUSE 08/03/2012 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, DIYA 698.9 UNSPECIFIED PRURITIC DISORDER 08/03/2012 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, DIYA 919.4 INSECT BITE NONVENOMOUS OF OTHER MULTIPLE AND UNSPECIFIED SITES WITHOUT INFECTION 08/03/2012 TRAVIS MANCERA DO 692.9 CONTACT DERMATITIS AND OTHER ECZEMA UNSPECIFIED CAUSE 08/03/2012 HOLLY MANCERA DOA K 698.9 UNSPECIFIED PRURITIC DISORDER 08/03/2012 MANCERA DO, TRAVIS K 919.4 INSECT BITE NONVENOMOUS OF OTHER MULTIPLE AND UNSPECIFIED SITES WITHOUT INFECTION 08/03/2012 ERIN DIEGO, BELINDA E 692.9 CONTACT DERMATITIS AND OTHER ECZEMA UNSPECIFIED CAUSE 08/03/2012 ERIN DIEGO, BELINDA E 698.9 UNSPECIFIED PRURITIC DISORDER 08/03/2012 KHAN RN, BELINDA E 919.4 INSECT BITE NONVENOMOUS OF OTHER MULTIPLE AND UNSPECIFIED SITES WITHOUT INFECTION 08/03/2012 ERIN DIEGO, BELINDA E 692.9 CONTACT DERMATITIS AND OTHER ECZEMA UNSPECIFIED CAUSE 08/03/2012 KHAN RN, BELINDA E 698.9 UNSPECIFIED PRURITIC DISORDER 08/03/2012 KHAN RN, BELINDA E 919.4 INSECT BITE NONVENOMOUS OF OTHER MULTIPLE AND UNSPECIFIED SITES WITHOUT INFECTION 08/03/2012 ERIN DIEGO, BELINDA E 692.9 CONTACT DERMATITIS AND OTHER ECZEMA UNSPECIFIED CAUSE 08/03/2012 ERIN DIEGO, BELINDA E 698.9 UNSPECIFIED PRURITIC DISORDER 08/03/2012 MARYAM KHAN RNISTA E 919.4 INSECT BITE NONVENOMOUS OF OTHER MULTIPLE AND UNSPECIFIED SITES WITHOUT INFECTION 08/03/2012 JERRY PITT MD N 692.9 CONTACT DERMATITIS AND OTHER ECZEMA UNSPECIFIED CAUSE 08/03/2012 JERRY PITT MD 698.9 UNSPECIFIED PRURITIC DISORDER 08/03/2012 JERRY PITT MD N 919.4 INSECT BITE NONVENOMOUS OF OTHER MULTIPLE AND UNSPECIFIED SITES WITHOUT INFECTION 08/03/2012 YOLANDA MICHELLE APRN R 692.9 CONTACT DERMATITIS AND OTHER ECZEMA UNSPECIFIED CAUSE 08/03/2012 YOLANDA MICHELLE APRN R 698.9 UNSPECIFIED PRURITIC DISORDER 08/03/2012 YOLANDA MICHELLE APRN R 919.4 INSECT BITE NONVENOMOUS OF OTHER MULTIPLE AND UNSPECIFIED SITES WITHOUT INFECTION 08/03/2012 JERRY PITT MD N 692.9 CONTACT DERMATITIS AND OTHER ECZEMA UNSPECIFIED CAUSE 08/03/2012 JERRY PITT MD N 698.9 UNSPECIFIED PRURITIC DISORDER 08/03/2012 JERRY PITT MD N 919.4 INSECT BITE NONVENOMOUS OF OTHER MULTIPLE AND UNSPECIFIED SITES WITHOUT INFECTION 08/03/2012 YOLANDA MICHELLE APRN R 692.9 CONTACT DERMATITIS AND OTHER ECZEMA UNSPECIFIED CAUSE 08/03/2012 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, YOLANDA R 698.9 UNSPECIFIED PRURITIC DISORDER 08/03/2012 MIGUEL ANGEL PANDYA, YOLANDA R 919.4 INSECT BITE NONVENOMOUS OF OTHER MULTIPLE AND UNSPECIFIED SITES WITHOUT INFECTION 08/03/2012 LELAND BROWN MD 692.9 CONTACT DERMATITIS AND OTHER ECZEMA UNSPECIFIED CAUSE 08/03/2012 LELAND BROWN MD 698.9 UNSPECIFIED PRURITIC DISORDER 08/03/2012 LELAND BROWN MD 919.4 INSECT BITE NONVENOMOUS OF OTHER MULTIPLE AND UNSPECIFIED SITES WITHOUT INFECTION 08/03/2012 MANCERA DO, TRAVIS K 692.9 CONTACT DERMATITIS AND OTHER ECZEMA UNSPECIFIED CAUSE 08/03/2012 MANCERA DO, TRAVIS K 698.9 UNSPECIFIED PRURITIC DISORDER 08/03/2012 MANCERA DO, TRAVIS K 919.4 INSECT BITE NONVENOMOUS OF OTHER MULTIPLE AND UNSPECIFIED SITES WITHOUT INFECTION 08/17/2012 790.6 ABNORMAL BLOOD CHEMISTRY 08/17/2012 790.6 ABNORMAL BLOOD CHEMISTRY 08/17/2012 790.6 ABNORMAL BLOOD CHEMISTRY 08/17/2012 790.6 ABNORMAL BLOOD CHEMISTRY 08/17/2012 IBRAHIMA WATTS DO 790.6 ABNORMAL BLOOD CHEMISTRY 08/17/2012 JERRY PITT MD 790.6 ABNORMAL BLOOD CHEMISTRY 08/17/2012 MANCERA DO, TRAVIS K 790.6 ABNORMAL BLOOD CHEMISTRY 08/17/2012 MANCERA DO, TRAVIS K 790.6 ABNORMAL BLOOD CHEMISTRY 08/17/2012 MANCERA DO, TRAVIS K 790.6 ABNORMAL BLOOD CHEMISTRY 08/17/2012 MANCERA DO, TRAVIS K 790.6 ABNORMAL BLOOD CHEMISTRY 08/17/2012 SANTY VALLEJO APRN 790.6 ABNORMAL BLOOD CHEMISTRY 08/17/2012 MANCERA DO, TRAVIS K 790.6 ABNORMAL BLOOD CHEMISTRY 08/17/2012 JERRY PITT MD N 790.6 ABNORMAL BLOOD CHEMISTRY 08/17/2012 SANTY VALLEJO APRN 790.6 ABNORMAL BLOOD CHEMISTRY 08/17/2012 JERRY PITT MD N 790.6 ABNORMAL BLOOD CHEMISTRY 08/17/2012 SANTY VALLEJO APRN 790.6 ABNORMAL BLOOD CHEMISTRY 08/17/2012 JERRY PITT MD 790.6 ABNORMAL BLOOD CHEMISTRY 08/17/2012 JERRY PITT MD N 790.6 ABNORMAL BLOOD CHEMISTRY 08/17/2012 ARTIE GODFREY APRNETTE 790.6 ABNORMAL BLOOD CHEMISTRY 08/17/2012 JERRY PITT MD N 790.6 ABNORMAL BLOOD CHEMISTRY 08/17/2012 DIYA GODFREY APRN 790.6 ABNORMAL BLOOD CHEMISTRY 08/17/2012 TRAVIS MANCERA DO K 790.6 ABNORMAL BLOOD CHEMISTRY 08/17/2012 ERIN DIEGO, BELINDA E 790.6 ABNORMAL BLOOD CHEMISTRY 08/17/2012 ERIN DIEGO, BELINDA E 790.6 ABNORMAL BLOOD CHEMISTRY 08/17/2012 ERIN DIEGO, BELINDA E 790.6 ABNORMAL BLOOD CHEMISTRY 08/17/2012 JERRY PITT MD N 790.6 ABNORMAL BLOOD CHEMISTRY 08/17/2012 MIGUEL ANGEL PANDYA YOLANDA R 790.6 ABNORMAL BLOOD CHEMISTRY 08/17/2012 JERRY PITT MD N 790.6 ABNORMAL BLOOD CHEMISTRY 08/17/2012 MIGUEL ANGEL PANDYA YOLANDA R 790.6 ABNORMAL BLOOD CHEMISTRY 08/17/2012 LELAND BROWN MD 790.6 ABNORMAL BLOOD CHEMISTRY 08/17/2012 TRAVIS MANCERA DO K 790.6 ABNORMAL BLOOD CHEMISTRY 10/24/2012 BIANCA CLAY APRN Ot 719.47 JOINT PAIN-ANKLE 11/03/2012 719.46 PAIN IN JOINT INVOLVING LOWER LEG 11/03/2012 719.47 PAIN IN JOINT INVOLVING ANKLE AND FOOT 11/03/2012 IBRAHIMA WATTS DO F 719.46 PAIN IN JOINT INVOLVING LOWER LEG 11/03/2012 IBRAHIMA WATTS DO F 719.47 PAIN IN JOINT INVOLVING ANKLE AND FOOT 11/03/2012 JERRY PITT MD N 719.46 PAIN IN JOINT INVOLVING LOWER LEG 11/03/2012 JERRY PITT MD 719.47 PAIN IN JOINT INVOLVING ANKLE AND FOOT 11/03/2012 TRAVIS MANCERA DO 719.46 PAIN IN JOINT INVOLVING LOWER LEG 11/03/2012 TRAVIS MANCERA DO 719.47 PAIN IN JOINT INVOLVING ANKLE AND FOOT 11/03/2012 TRAVIS MANCERA DO 719.46 PAIN IN JOINT INVOLVING LOWER LEG 11/03/2012 TRAVIS MANCERA DO 719.47 PAIN IN JOINT INVOLVING ANKLE AND FOOT 11/03/2012 TRAVIS MANCERA DO 719.46 PAIN IN JOINT INVOLVING LOWER LEG 11/03/2012 MANCERA DOHOLLYA K 719.47 PAIN IN JOINT INVOLVING ANKLE AND FOOT 11/03/2012 MANCERA DOHOLLYA K 719.46 PAIN IN JOINT INVOLVING LOWER LEG 11/03/2012 MANCERA DOHOLLYA K 719.47 PAIN IN JOINT INVOLVING ANKLE AND FOOT 11/03/2012 SANTY VALLEJO APRN 719.46 PAIN IN JOINT INVOLVING LOWER LEG 11/03/2012 SANTY VALLEJO APRN 719.47 PAIN IN JOINT INVOLVING ANKLE AND FOOT 11/03/2012 TRAVIS MANCERA DO 719.46 PAIN IN JOINT INVOLVING LOWER LEG 11/03/2012 TRAVIS MANCERA DO 719.47 PAIN IN JOINT INVOLVING ANKLE AND FOOT 11/03/2012 JERRY PITT MD 719.46 PAIN IN JOINT INVOLVING LOWER LEG 11/03/2012 JERRY PITT MD 719.47 PAIN IN JOINT INVOLVING ANKLE AND FOOT 11/03/2012 SANTY VALLEJO APRN 719.46 PAIN IN JOINT INVOLVING LOWER LEG 11/03/2012 SANTY VALLEJO APRN 719.47 PAIN IN JOINT INVOLVING ANKLE AND FOOT 11/03/2012 JERRY PITT MD 719.46 PAIN IN JOINT INVOLVING LOWER LEG 11/03/2012 JERRY PITT MD 719.47 PAIN IN JOINT INVOLVING ANKLE AND FOOT 11/03/2012 SANTY VALLEJO APRN 719.46 PAIN IN JOINT INVOLVING LOWER LEG 11/03/2012 SANTY VALLEJO APRN 719.47 PAIN IN JOINT INVOLVING ANKLE AND FOOT 11/03/2012 JERRY PITT MD 719.46 PAIN IN JOINT INVOLVING LOWER LEG 11/03/2012 JERRY PITT MD 719.47 PAIN IN JOINT INVOLVING ANKLE AND FOOT 11/03/2012 JERRY PITT MD 719.46 PAIN IN JOINT INVOLVING LOWER LEG 11/03/2012 JERRY PITT MD 719.47 PAIN IN JOINT INVOLVING ANKLE AND FOOT 11/03/2012 DIYA GODFREY APRN 719.46 PAIN IN JOINT INVOLVING LOWER LEG 11/03/2012 DIYA GODFREY APRN 719.47 PAIN IN JOINT INVOLVING ANKLE AND FOOT 11/03/2012 JERRY PITT MD 719.46 PAIN IN JOINT INVOLVING LOWER LEG 11/03/2012 JERRY PITT MD 719.47 PAIN IN JOINT INVOLVING ANKLE AND FOOT 11/03/2012 DIYA GODFREY APRN 719.46 PAIN IN JOINT INVOLVING LOWER LEG 11/03/2012 BEKAH ARTIE PANDYAETTE 719.47 PAIN IN JOINT INVOLVING ANKLE AND FOOT 11/03/2012 TRAVIS MANCERA DO 719.46 PAIN IN JOINT INVOLVING LOWER LEG 11/03/2012 TRAVIS MANCERA DO 719.47 PAIN IN JOINT INVOLVING ANKLE AND FOOT 11/03/2012 BELINDA KHAN RN E 719.46 PAIN IN JOINT INVOLVING LOWER LEG 11/03/2012 BELINDA KHAN RN 719.47 PAIN IN JOINT INVOLVING ANKLE AND FOOT 11/03/2012 BELINDA KHAN RN 719.46 PAIN IN JOINT INVOLVING LOWER LEG 11/03/2012 BELINDA KHAN RN 719.47 PAIN IN JOINT INVOLVING ANKLE AND FOOT 11/03/2012 BELINDA KHAN RN E 719.46 PAIN IN JOINT INVOLVING LOWER LEG 11/03/2012 BELINDA KHAN RN 719.47 PAIN IN JOINT INVOLVING ANKLE AND FOOT 11/03/2012 JERRY PITT MD 719.46 PAIN IN JOINT INVOLVING LOWER LEG 11/03/2012 JERRY PITT MD 719.47 PAIN IN JOINT INVOLVING ANKLE AND FOOT 11/03/2012 YOLANDA MICHELLE APRN R 719.46 PAIN IN JOINT INVOLVING LOWER LEG 11/03/2012 YOLANDA MICHELLE APRN R 719.47 PAIN IN JOINT INVOLVING ANKLE AND FOOT 11/03/2012 JERRY PITT MD 719.46 PAIN IN JOINT INVOLVING LOWER LEG 11/03/2012 JERRY PITT MD 719.47 PAIN IN JOINT INVOLVING ANKLE AND FOOT 11/03/2012 YOLANDA MICHELLE APRN R 719.46 PAIN IN JOINT INVOLVING LOWER LEG 11/03/2012 YOLANDA MICHELLE APRN R 719.47 PAIN IN JOINT INVOLVING ANKLE AND FOOT 11/03/2012 LELAND BROWN MD 719.46 PAIN IN JOINT INVOLVING LOWER LEG 11/03/2012 LELAND BROWN MD 71[place]inson.47 PAIN IN JOINT INVOLVING ANKLE AND FOOT 11/03/2012 MANCERA DO, TRAVIS K 719.46 PAIN IN JOINT INVOLVING LOWER LEG 11/03/2012 MANCERA DO, TRAVIS K 719.47 PAIN IN JOINT INVOLVING ANKLE AND FOOT 11/19/2012 JOSUE VERMA MD Ot 305.00 ALCOHOL ABUSE-UNSPEC 11/19/2012 JOSUE VERMA MD Ot 729.5 PAIN IN LIMB 11/19/2012 JOSUE VERMA MD Ot 786.50 CHEST PAIN NOS 11/19/2012 JOSUE VERMA MD Ot 959.01 HEAD INJURY, NOS 11/19/2012 JOSUE VERMA MD Ot E000.8 OTHER EXTERNAL CAUSE STATUS 11/19/2012 JOSUE VERMA MD Ot E849.0 ACCIDENT IN HOME 11/19/2012 JOSUE VERMA MD Ot E884.6 FALL FROM COMMODE,TOILET 11/29/2012 MANCERA DO, TRAVIS K 729.5 PAIN- LEG 11/29/2012 MANCERA DO, TRAVIS K 786.50 CHEST PAIN 11/29/2012 MANCERA DO, TRAVIS K 729.5 PAIN- LEG 11/29/2012 MANCERA DO, TRAVIS K 786.50 CHEST PAIN 11/29/2012 MANCERA DO, TRAVIS K 729.5 PAIN- LEG 11/29/2012 MANCERA DO, TRAVIS K 786.50 CHEST PAIN 11/29/2012 MANCERA DO, TRAVIS K 729.5 PAIN- LEG 11/29/2012 MANCERA DO, TRAVIS K 786.50 CHEST PAIN 11/29/2012 SANTY VALLEJO APRN 729.5 PAIN- LEG 11/29/2012 SANTY VALLEJO APRN 786.50 CHEST PAIN 11/29/2012 MANCERA DO, TRAVIS K 729.5 PAIN- LEG 11/29/2012 MANCERA DO, TRAVIS K 786.50 CHEST PAIN 11/29/2012 JERRY PITT MD 729.5 PAIN- LEG 11/29/2012 JERRY PITT MD 786.50 CHEST PAIN 11/29/2012 SANTY VALLEJO APRN 729.5 PAIN- LEG 11/29/2012 SANTY VALLEJO APRN 786.50 CHEST PAIN 11/29/2012 JERRY PITT MD 729.5 PAIN- LEG 11/29/2012 JERRY PITT MD N 786.50 CHEST PAIN 11/29/2012 SANTY VALLEJO APRN 729.5 PAIN- LEG 11/29/2012 SANTY VALLEJO APRN 786.50 CHEST PAIN 11/29/2012 JERRY PITT MD N 729.5 PAIN- LEG 11/29/2012 JERRY PITT MD N 786.50 CHEST PAIN 11/29/2012 JERRY PITT MD N 729.5 PAIN- LEG 11/29/2012 JERRY PITT MD N 786.50 CHEST PAIN 11/29/2012 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, 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 729.5 PAIN- LEG 11/29/2012 BEKAHKAREN PANDYA, DIYA 786.50 CHEST PAIN 11/29/2012 JERRY PITT MD N 729.5 PAIN- LEG 11/29/2012 JERRY PITT MD N 786.50 CHEST PAIN 11/29/2012 BEKAH PANDYA, DIYA 729.5 PAIN- LEG 11/29/2012 BEKAH PANDYA, DIYA 786.50 CHEST PAIN 11/29/2012 MANCERA DO, TRAVIS K 729.5 PAIN- LEG 11/29/2012 MANCERA DO, TRAVIS K 786.50 CHEST PAIN 11/29/2012 ERIN DIEGO, BELINDA E 729.5 PAIN- LEG 11/29/2012 ERIN DIEGO, BELINDA E 786.50 CHEST PAIN 11/29/2012 ERIN DIEGO, BELINDA E 729.5 PAIN- LEG 11/29/2012 ERIN DIEGO, BELINDA E 786.50 CHEST PAIN 11/29/2012 ERIN RN, BELINDA E 729.5 PAIN- LEG 11/29/2012 ERIN DIEGO, BELINDA E 786.50 CHEST PAIN 11/29/2012 JERRY PITT MD N 729.5 PAIN- LEG 11/29/2012 JERRY PITT MD N 786.50 CHEST PAIN 11/29/2012 YOLANDA MICHELLE APRN R 729.5 PAIN- LEG 11/29/2012 HIMANSHU MICHELLE APRNINA R 786.50 CHEST PAIN 11/29/2012 JERRY PITT MD N 729.5 PAIN- LEG 11/29/2012 JERRY PITT MD N 786.50 CHEST PAIN 11/29/2012 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, 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 R 729.5 PAIN- LEG 11/29/2012 MIGUEL ANGEL VOGELN, YOLANDA R 786.50 CHEST PAIN 11/29/2012 LELAND BROWN MD 729.5 PAIN- LEG 11/29/2012 LELAND BROWN MD 786.50 CHEST PAIN 11/29/2012 MANCERA DO, TRAVIS K 729.5 PAIN- LEG 11/29/2012 MANCERA DO, TRAVIS K 786.50 CHEST PAIN 12/12/2012 MANCERA DO, TRAVIS K 443.9 PERIPHERAL VASCULAR DISEASE UNSPECIFIED 12/12/2012 MANCERA DO, TRAVIS K 443.9 PERIPHERAL VASCULAR DISEASE UNSPECIFIED 12/12/2012 MANCERA DO, TRAVIS K 443.9 PERIPHERAL VASCULAR DISEASE UNSPECIFIED 12/12/2012 SANTY VALLEJO APRN 443.9 PERIPHERAL VASCULAR DISEASE UNSPECIFIED 12/12/2012 MANCERA HOLLY MCGILLA K 443.9 PERIPHERAL VASCULAR DISEASE UNSPECIFIED 12/12/2012 JERRY PITT MD 443.9 PERIPHERAL VASCULAR DISEASE UNSPECIFIED 12/12/2012 SANTY VALLEJO APRN 443.9 PERIPHERAL VASCULAR DISEASE UNSPECIFIED 12/12/2012 JERRY PITT MD 443.9 PERIPHERAL VASCULAR DISEASE UNSPECIFIED 12/12/2012 SANTY VALLEJO APRN 443.9 PERIPHERAL VASCULAR DISEASE UNSPECIFIED 12/12/2012 JERRY PITT MD 443.9 PERIPHERAL VASCULAR DISEASE UNSPECIFIED 12/12/2012 JERRY PITT MD 443.9 PERIPHERAL VASCULAR DISEASE UNSPECIFIED 12/12/2012 DIYA GODFREY APRN 443.9 PERIPHERAL VASCULAR DISEASE UNSPECIFIED 12/12/2012 JERRY PITT MD 443.9 PERIPHERAL VASCULAR DISEASE UNSPECIFIED 12/12/2012 DIYA GODFREY APRN 443.9 PERIPHERAL VASCULAR DISEASE UNSPECIFIED 12/12/2012 CALDERON MCGILL TRAVIS K 443.9 PERIPHERAL VASCULAR DISEASE UNSPECIFIED 12/12/2012 BELINDA KHAN RN 443.9 PERIPHERAL VASCULAR DISEASE UNSPECIFIED 12/12/2012 BELINDA KHAN RN 443.9 PERIPHERAL VASCULAR DISEASE UNSPECIFIED 12/12/2012 BELINDA KHAN RN 443.9 PERIPHERAL VASCULAR DISEASE UNSPECIFIED 12/12/2012 JERRY PITT MD 443.9 PERIPHERAL VASCULAR DISEASE UNSPECIFIED 12/12/2012 YOLANDA MICHELLE APRN R 443.9 PERIPHERAL VASCULAR DISEASE UNSPECIFIED 12/12/2012 JERRY PITT MD 443.9 PERIPHERAL VASCULAR DISEASE UNSPECIFIED 12/12/2012 YOLANDA MICHELLE APRN R 443.9 PERIPHERAL VASCULAR DISEASE UNSPECIFIED 12/12/2012 KEVIN GUTIERREZ, LELAND 443.9 PERIPHERAL VASCULAR DISEASE UNSPECIFIED 12/12/2012 HOLLY MANCERA DOA K 443.9 PERIPHERAL VASCULAR DISEASE UNSPECIFIED 12/28/2012 MANCERA DO TRAVIS K 715.96 OSTEOARTHROSIS UNSPECIFIED WHETHER GENERALIZED OR LOCALIZED INVOLVING LOWER LEG 12/28/2012 SANTY VALLEJO APRN 715.96 OSTEOARTHROSIS UNSPECIFIED WHETHER GENERALIZED OR LOCALIZED INVOLVING LOWER LEG 12/28/2012 TRAVIS MANCERA DO 715.96 OSTEOARTHROSIS UNSPECIFIED WHETHER GENERALIZED OR LOCALIZED INVOLVING LOWER LEG 12/28/2012 JERRY PITT MD 715.96 OSTEOARTHROSIS UNSPECIFIED WHETHER GENERALIZED OR LOCALIZED INVOLVING LOWER LEG 12/28/2012 SANTY VALLEJO APRN 715.96 OSTEOARTHROSIS UNSPECIFIED WHETHER GENERALIZED OR LOCALIZED INVOLVING LOWER LEG 12/28/2012 JERRY PITT MD 715.96 OSTEOARTHROSIS UNSPECIFIED WHETHER GENERALIZED OR LOCALIZED INVOLVING LOWER LEG 12/28/2012 SANTY VALLEJO APRN 715.96 OSTEOARTHROSIS UNSPECIFIED WHETHER GENERALIZED OR LOCALIZED INVOLVING LOWER LEG 12/28/2012 JERRY PITT MD N 715.96 OSTEOARTHROSIS UNSPECIFIED WHETHER GENERALIZED OR LOCALIZED INVOLVING LOWER LEG 12/28/2012 JERRY PITT MD 715.96 OSTEOARTHROSIS UNSPECIFIED WHETHER GENERALIZED OR LOCALIZED INVOLVING LOWER LEG 12/28/2012 DIYA GODFREY APRN 715.96 OSTEOARTHROSIS UNSPECIFIED WHETHER GENERALIZED OR LOCALIZED INVOLVING LOWER LEG 12/28/2012 JERRY PITT MD 715.96 OSTEOARTHROSIS UNSPECIFIED WHETHER GENERALIZED OR LOCALIZED INVOLVING LOWER LEG 12/28/2012 BEKAH PANDYA DIYA 715.96 OSTEOARTHROSIS UNSPECIFIED WHETHER GENERALIZED OR LOCALIZED INVOLVING LOWER LEG 12/28/2012 TRAVIS MANCERA DO 715.96 OSTEOARTHROSIS UNSPECIFIED WHETHER GENERALIZED OR LOCALIZED INVOLVING LOWER LEG 12/28/2012 ERIN DIEGO, BELINDA E 715.96 OSTEOARTHROSIS UNSPECIFIED WHETHER GENERALIZED OR LOCALIZED INVOLVING LOWER LEG 12/28/2012 BELINDA KHAN RN E 715.96 OSTEOARTHROSIS UNSPECIFIED WHETHER GENERALIZED OR LOCALIZED INVOLVING LOWER LEG 12/28/2012 BELINDA KHAN RN E 715.96 OSTEOARTHROSIS UNSPECIFIED WHETHER GENERALIZED OR LOCALIZED INVOLVING LOWER LEG 12/28/2012 JERRY PITT MD 715.96 OSTEOARTHROSIS UNSPECIFIED WHETHER GENERALIZED OR LOCALIZED INVOLVING LOWER LEG 12/28/2012 YOLANDA MICHELLE APRN R 715.96 OSTEOARTHROSIS UNSPECIFIED WHETHER GENERALIZED OR LOCALIZED INVOLVING LOWER LEG 12/28/2012 JERRY PITT MD 715.96 OSTEOARTHROSIS UNSPECIFIED WHETHER GENERALIZED OR LOCALIZED INVOLVING LOWER LEG 12/28/2012 YOLANDA MICHELLE APRN R 715.96 OSTEOARTHROSIS UNSPECIFIED WHETHER GENERALIZED OR LOCALIZED INVOLVING LOWER LEG 12/28/2012 LELAND BROWN MD 715.96 OSTEOARTHROSIS UNSPECIFIED WHETHER GENERALIZED OR LOCALIZED INVOLVING LOWER LEG 12/28/2012 MANCERA DO TRAVIS K 715.96 OSTEOARTHROSIS UNSPECIFIED WHETHER GENERALIZED OR LOCALIZED INVOLVING LOWER LEG 01/26/2013 CALDERON MCGILL TRAVIS K 272.4 DYSLIPIDEMIA 01/26/2013 CALDERON MCGILL TRAVIS K 401.9 HYPERTENSION, UNSPECIFIED ESSENTIAL 01/26/2013 CALDERON MCGILL TRAVIS K 414.00 CAD 01/26/2013 MANCERA DO TRAVIS K 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 01/26/2013 JERRY PITT MD N 272.4 DYSLIPIDEMIA 01/26/2013 JERRY PITT MD 401.9 HYPERTENSION, UNSPECIFIED ESSENTIAL 01/26/2013 JERRY PITT MD N 414.00 CAD 01/26/2013 JERRY PITT MD N 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 01/26/2013 SANTY VALLEJO APRN 272.4 DYSLIPIDEMIA 01/26/2013 SANTY VALLEJO APRN 401.9 HYPERTENSION, UNSPECIFIED ESSENTIAL 01/26/2013 SANTY VALLEJO APRN 414.00 CAD 01/26/2013 SANTY VALLEJO APRN 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 01/26/2013 JERRY PITT MD N 272.4 DYSLIPIDEMIA 01/26/2013 JERRY PITT MD N 401.9 HYPERTENSION, UNSPECIFIED ESSENTIAL 01/26/2013 JERRY PITT MD N 414.00 CAD 01/26/2013 JERRY PITT MD N 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 01/26/2013 SANTY VALLEJO APRN 272.4 DYSLIPIDEMIA 01/26/2013 SANTY VALLEJO APRN 401.9 HYPERTENSION, UNSPECIFIED ESSENTIAL 01/26/2013 SANTY VALLEJO APRN 414.00 CAD 01/26/2013 SNATY VALLEJO APRN 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 01/26/2013 JERRY PITT MD N 272.4 DYSLIPIDEMIA 01/26/2013 JERRY PITT MD N 401.9 HYPERTENSION, UNSPECIFIED ESSENTIAL 01/26/2013 JERRY PITT MD N 414.00 CAD 01/26/2013 JERRY PITT MD N 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 01/26/2013 JERRY PITT MD N 272.4 DYSLIPIDEMIA 01/26/2013 JERRY PITT MD N 401.9 HYPERTENSION, UNSPECIFIED ESSENTIAL 01/26/2013 JERRY PITT MD N 414.00 CAD 01/26/2013 JERRY PITT MD N 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 01/26/2013 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, DIYA 272.4 DYSLIPIDEMIA 01/26/2013 BEKAHKAREN PANDYA, DIYA 401.9 HYPERTENSION, UNSPECIFIED ESSENTIAL 01/26/2013 BEKAH PANDYA, DIYA 414.00 CAD 01/26/2013 BEKAHKAREN PANDYA, DIYA 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 01/26/2013 JERRY PITT MD N 272.4 DYSLIPIDEMIA 01/26/2013 JERRY PITT MD N 401.9 HYPERTENSION, UNSPECIFIED ESSENTIAL 01/26/2013 JERRY PITT MD N 414.00 CAD 01/26/2013 JERRY PITT MD N 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 01/26/2013 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, DIYA 272.4 DYSLIPIDEMIA 01/26/2013 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, DIYA 401.9 HYPERTENSION, UNSPECIFIED ESSENTIAL 01/26/2013 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, DIYA 414.00 CAD 01/26/2013 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, DIYA 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 01/26/2013 MANCERA DO, TRAVIS K 272.4 DYSLIPIDEMIA 01/26/2013 MANCERA DO, TRAVIS K 401.9 HYPERTENSION, UNSPECIFIED ESSENTIAL 01/26/2013 MANCERA DO, TRAVIS K 414.00 CAD 01/26/2013 MANCERA DO, TRAVIS K 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 01/26/2013 ERIN RN, BELINDA E 272.4 DYSLIPIDEMIA 01/26/2013 ERIN RN, BELINDA E 401.9 HYPERTENSION, UNSPECIFIED ESSENTIAL 01/26/2013 ERIN RN, BELINDA E 414.00 CAD 01/26/2013 KHAN RN, BELINDA E 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 01/26/2013 KHAN RN, BELINDA E 272.4 DYSLIPIDEMIA 01/26/2013 KHAN RN, BELINDA E 401.9 HYPERTENSION, UNSPECIFIED ESSENTIAL 01/26/2013 KHAN RN, BELINDA E 414.00 CAD 01/26/2013 ERIN RN, BELINDA E 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 01/26/2013 ERIN RN, BELINDA E 272.4 DYSLIPIDEMIA 01/26/2013 ERIN RN, BELINDA E 401.9 HYPERTENSION, UNSPECIFIED ESSENTIAL 01/26/2013 ERIN RN, BELINDA E 414.00 CAD 01/26/2013 ERIN RN, BELINDA E 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 01/26/2013 JERRY PITT MD N 272.4 DYSLIPIDEMIA 01/26/2013 JERRY PITT MD N 401.9 HYPERTENSION, UNSPECIFIED ESSENTIAL 01/26/2013 JERRY PITT MD N 414.00 CAD 01/26/2013 JERRY PITT MD N 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 01/26/2013 HIMANSHU MICHELLE APRNINA R 272.4 DYSLIPIDEMIA 01/26/2013 MIGUEL ANGEL PANDYA, YOLANDA R 401.9 HYPERTENSION, UNSPECIFIED ESSENTIAL 01/26/2013 MIGUEL ANGEL PANDYA, YOLANDA R 414.00 CAD 01/26/2013 MIGUEL ANGEL PANDYA, YOLANDA R 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 01/26/2013 JERRY PITT MD N 272.4 DYSLIPIDEMIA 01/26/2013 JERRY PITT MD N 401.9 HYPERTENSION, UNSPECIFIED ESSENTIAL 01/26/2013 JERRY PITT MD N 414.00 CAD 01/26/2013 JERRY PITT MD N 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 01/26/2013 HIMANSHU MICHELLE APRNINA R 272.4 DYSLIPIDEMIA 01/26/2013 MIGUEL ANGEL PANDYA, YOLANDA R 401.9 HYPERTENSION, UNSPECIFIED ESSENTIAL 01/26/2013 HIMANSHU MICHELLE APRNINA R 414.00 CAD 01/26/2013 HIMANSHU MICHELLE APRNINA R 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 01/26/2013 LELAND BROWN MD 272.4 DYSLIPIDEMIA 01/26/2013 KEVIN GUTIERREZ, LELAND 401.9 HYPERTENSION, UNSPECIFIED ESSENTIAL 01/26/2013 LELAND BROWN MD 414.00 CAD 01/26/2013 KEVIN GUTIERREZ, LELAND 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 01/26/2013 MANCERA DO, TRAVIS K 272.4 DYSLIPIDEMIA 01/26/2013 MANCERA DO, TRAVIS K 401.9 HYPERTENSION, UNSPECIFIED ESSENTIAL 01/26/2013 MANCERA DO, TRAVIS K 414.00 CAD 01/26/2013 MANCERA DO, TRAVIS K 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 05/01/2013 SANTY VALLEJO APRN 300.00 AN ANXIETY UNSPEC 05/01/2013 JERRY PITT MD 300.00 AN ANXIETY UNSPEC 05/01/2013 SANTY VALLEJO APRN 300.00 AN ANXIETY UNSPEC 05/01/2013 JERRY PITT MD 300.00 AN ANXIETY UNSPEC 05/01/2013 JERRY PITT MD 300.00 AN ANXIETY UNSPEC 05/01/2013 DIYA GODFREY APRN 300.00 AN ANXIETY UNSPEC 05/01/2013 JERRY PITT MD 300.00 AN ANXIETY UNSPEC 05/01/2013 DIYA GODFREY APRN 300.00 AN ANXIETY UNSPEC 05/01/2013 TRAVIS MANCERA DO K 300.00 AN ANXIETY UNSPEC 05/01/2013 BELINDA KHAN RN 300.00 AN ANXIETY UNSPEC 05/01/2013 BELINDA KHAN RN 300.00 AN ANXIETY UNSPEC 05/01/2013 BELINDA KHAN RN 300.00 AN ANXIETY UNSPEC 05/01/2013 JERRY PITT MD 300.00 AN ANXIETY UNSPEC 05/01/2013 YOLANDA MICHELLE APRN R 300.00 AN ANXIETY UNSPEC 05/01/2013 JERRY PITT MD N 300.00 AN ANXIETY UNSPEC 05/01/2013 YOLANDA MICHELLE APRN R 300.00 AN ANXIETY UNSPEC 05/01/2013 LELAND BROWN MD 300.00 AN ANXIETY UNSPEC 05/01/2013 TRAVIS MANCERA DO 300.00 AN ANXIETY UNSPEC 10/11/2013 LEOBARDO GUTIERREZ, FRANKIE Benson Ot 272.4 HYPERLIPIDEMIA NEC/NOS 10/11/2013 LEOBARDO GUTIERREZ, FRANKIE Benson Ot 296.80 BIPOLAR DISORDER, UNSPECIFIED 10/11/2013 LEOBRADO GUTIREREZ, FRANKIE Benson Ot 305.1 TOBACCO USE DISORDER 10/11/2013 LEOBARDO GUTIERREZ, FRANKIE Benson Ot 401.9 HYPERTENSION NOS 10/11/2013 LEOBARDO GUTIERREZ, FRANKIE Benson Ot 412 OLD MYOCARDIAL INFARCT 10/11/2013 LEOBARDO GUTIERREZ, FRANKIE Benson Ot 440.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 TANANA ARTERIES EXTREMIT 10/11/2013 LEOBARDO GUTIERREZ, FRANKIE Benson Ot 729.5 PAIN IN LIMB 10/11/2013 FRANKIE BOOTH MD Ot V58.69 OTH MED,LT,CURRENT USE 12/14/2013 JERRY PITT MD N V04.81 FLU SHOT 12/14/2013 YOLANDA MICHELLE APRN R V04.81 FLU SHOT 12/14/2013 JERRY PITT MD V04.81 FLU SHOT 12/14/2013 YOLANDA MICHELLE APRN R V04.81 FLU SHOT 12/14/2013 LELAND BROWN MD V04.81 FLU SHOT 12/14/2013 TRAVIS MANCERA DO V04.81 FLU SHOT 02/26/2014 YOLANDA MICHELLE APRN R 788.41 URINARY FREQUENCY 02/26/2014 JERRY PITT MD 788.41 URINARY FREQUENCY 02/26/2014 YOLANDA MICHELLE APRN R 788.41 URINARY FREQUENCY 02/26/2014 LELAND BROWN MD 788.41 URINARY FREQUENCY 02/26/2014 TRAVIS MANCERA DO 788.41 URINARY FREQUENCY 04/26/2014 Ot 272.4 HYPERLIPIDEMIA NEC/NOS 04/26/2014 Ot 296.80 BIPOLAR DISORDER, UNSPECIFIED 04/26/2014 Ot 305.1 TOBACCO USE DISORDER 04/26/2014 Ot 401.9 HYPERTENSION NOS 04/26/2014 Ot 412 OLD MYOCARDIAL INFARCT 04/26/2014 Ot 440.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 TANANA ARTERIES EXTREMIT 04/26/2014 Ot 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 04/26/2014 Ot V58.69 OTH MED,LT,CURRENT USE 05/10/2014 LELAND BROWN MD 401.1 HYPERTENSION, BENIGN ESSENTIAL 05/10/2014 CALDERON MCGILL TRAVIS Yolanda 401.1 HYPERTENSION, BENIGN ESSENTIAL 06/06/2014 Ot 728.82 06/06/2014 Ot V72.63 06/06/2014 Ot V72.81 06/06/2014 Ot V74.8 06/06/2014 YOANDY GUTIERREZ, JERRY Aldana Ot 729.5 06/06/2014 BERG-MILLY PA, JACE K Ot 272.4 06/06/2014 BERG-MILLY PA, JACE K Ot 401.9 06/06/2014 BERG-MILLY PA, JACE K Ot 414.00 06/06/2014 BERG-MILLY PA, JACE K Ot 434.91 06/06/2014 BERG-MILLY PA, JACE K Ot 786.09 06/06/2014 BERG-MILLY PA, JACE K Ot 786.50 06/06/2014 BERG-MLILY PA, JACE K Ot 397.0 06/06/2014 BERG-MILLY PA, JACE K Ot 401.9 06/06/2014 BERG-MILLY PA, JACE K Ot 414.00 06/06/2014 BERG-MILLY PA, JACE K Ot 424.0 06/06/2014 BERG-MILLY PA, JACE K Ot 786.50 06/10/2014 LEOBARDO GUTIERREZ, FRANKIE S Ot 211.3 06/10/2014 LEOBARDO GUTIERREZ, FRANKIE S Ot V16.0 06/10/2014 LEOBARDO GUTIERREZ, FRANKIE S Ot V76.51 06/11/2014 LEOBARDO GUTIERREZ, FRANKIE S Ot V72.84 06/12/2014 LEOBARDO GUTIERREZ, FRANKIE S Ot 211.3 06/12/2014 LEOBARDO GUTIERREZ, FRANKIE S Ot V16.0 06/12/2014 LEOBARDO GUTIERREZ, FRANKIE S Ot V76.51 06/26/2014 LEOBARDO GUTIERREZ, FRANKIE S Ot 211.3 06/26/2014 LEOBARDO GUTIERREZ, FRANKIE S Ot V16.0 06/26/2014 LEOBARDO GUTIERREZ, FRANKIE S Ot V76.51 06/23/2015 Ot 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 06/23/2015 Ot V72.63 PRE-PROCEDURAL LABORATORY EXAMINATION 06/23/2015 Ot V72.81 [id number] CARDIOVASCULAR 06/23/2015 Ot V74.8 SCREEN-BACTERIAL DIS NEC 06/23/2015 YOANDY GUTIERREZ, JERRY Aldana Ot 729.5 PAIN IN LIMB 06/23/2015 JACE CORDOVA Ot 272.4 HYPERLIPIDEMIA NEC/NOS 06/23/2015 JACE CORDOVA Ot 401.9 HYPERTENSION NOS 06/23/2015 JACE CORDOVA Ot 414.00 CORON ATHEROSCLER NOS TYPE VESSEL, NATIV 06/23/2015 JACE CORDOVA Ot 434.91 CEREBRAL ART OCCLUSION NOS W CEREBRAL IN 06/23/2015 JACE CORDOVA Ot 786.09 RESPIRATORY ABNORM NEC 06/23/2015 JACE CORDOVA Ot 786.50 CHEST PAIN NOS 06/23/2015 JACE CORDOVA Ot 397.0 TRICUSPID VALVE DISEASE 06/23/2015 JACE CORDOVA Ot 401.9 HYPERTENSION NOS 06/23/2015 JACE CORDOVA Ot 414.00 CORON ATHEROSCLER NOS TYPE VESSEL, NATIV 06/23/2015 JACE CORDOVA Ot 424.0 MITRAL VALVE DISORDER 06/23/2015 JACE CORDOVA Ot 786.50 CHEST PAIN NOS 06/23/2015 LEOBARDO GUTIERREZ, FRANKIE Benson Ot 211.3 BENIGN NEOPLASM LG BOWEL 06/23/2015 FRANKIE BOOTH MD Ot V16.0 FAMILY HX-GI MALIGNANCY 06/23/2015 FRANKIE BOOTH MD Ot V76.51 SCREEN MAL NEOP-COLON 06/23/2015 FRANKIE BOOTH MD Ot V72.84 EXAM PRE-OPERATIVE NOS 06/24/2015 LELAND BROWN MD Ot E78.5 HYPERLIPIDEMIA, UNSPECIFIED 06/24/2015 LELAND BROWN MD Ot 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 06/24/2015 LELAND BROWN MD Ot I73.9 PERIPHERAL VASCULAR DISEASE, UNSPECIFIED 06/24/2015 LELAND BROWN MD Ot Z82.49 FAMILY HX OF ISCHEM HEART DIS AND OTH DI 06/25/2015 LELAND BROWN MD Ot E78.5 HYPERLIPIDEMIA, UNSPECIFIED 06/25/2015 LELAND BROWN MD Ot 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 06/25/2015 LELAND BROWN MD Ot I73.9 PERIPHERAL VASCULAR DISEASE, UNSPECIFIED 06/25/2015 LELAND BROWN MD Ot Z82.49 FAMILY HX OF ISCHEM HEART DIS AND OTH DI 06/26/2015 LELAND BROWN MD Ot E78.5 HYPERLIPIDEMIA, UNSPECIFIED 06/26/2015 LELAND BROWN MD Ot I10 ESSENTIAL (PRIMARY) HYPERTENSION 06/26/2015 LELAND BROWN MD Ot I25.2 OLD MYOCARDIAL INFARCTION 06/26/2015 LELAND BROWN MD Ot 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 [facility] ARTERIES OF [facility] 06/26/2015 LELAND BROWN MD Ot Z72.0 TOBACCO USE 06/26/2015 LELAND BROWN MD Ot Z79.899 OTHER JAIL (CURRENT) DRUG THERAPY 06/29/2015 LELAND BROWN MD Ot E78.5 HYPERLIPIDEMIA, UNSPECIFIED 06/29/2015 LELAND BROWN MD Ot 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 06/29/2015 LELAND BROWN MD Ot I73.9 PERIPHERAL VASCULAR DISEASE, UNSPECIFIED 06/29/2015 LELAND BROWN MD Ot Z82.49 FAMILY HX OF ISCHEM HEART DIS AND OTH DI 07/10/2015 LELAND BROWN MD Ot E78.5 HYPERLIPIDEMIA, UNSPECIFIED 07/10/2015 LELAND BROWN MD Ot 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 07/10/2015 LELAND BROWN MD Ot I73.9 PERIPHERAL VASCULAR DISEASE, UNSPECIFIED 07/10/2015 LELAND BROWN MD Ot Z82.49 FAMILY HX OF ISCHEM HEART DIS AND OTH DI 07/14/2015 LELAND BROWN MD Ot E78.5 HYPERLIPIDEMIA, UNSPECIFIED 07/14/2015 LELAND BROWN MD Ot I10 ESSENTIAL (PRIMARY) HYPERTENSION 07/14/2015 LELAND BROWN MD Ot I25.2 OLD MYOCARDIAL INFARCTION 07/14/2015 LELAND BROWN MD Ot 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 [place] ARTERIES OF [facility] 07/14/2015 LELAND BROWN MD Ot Z72.0 TOBACCO USE 07/14/2015 LELAND BROWN MD Ot Z79.899 OTHER WOOD FLOOR LAYER (CURRENT) DRUG THERAPY 04/26/2016 Ot 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0 TRICUSPID VALVE DISEASE 04/26/2016 JACE CORDOVA Ot 401.9 HYPERTENSION NOS 04/26/2016 JACE CORDOVA Ot 414.00 CORON ATHEROSCLER NOS TYPE VESSEL, NATIV 04/26/2016 JACE CORDOVA Ot 424.0 MITRAL VALVE DISORDER 04/26/2016 JACE CORDOVA Ot 786.50 CHEST PAIN NOS 04/26/2016 LEOBARDO GUTIERREZ, FRANKIE Benson Ot 211.3 BENIGN NEOPLASM LG BOWEL 04/26/2016 FRANKIE BOOTH MD Ot V16.0 FAMILY HX-GI MALIGNANCY 04/26/2016 FRANKIE BOOTH MD Ot V76.51 SCREEN MAL NEOP-COLON 04/26/2016 FRANKIE BOOTH MD Ot V72.84 EXAM PRE-OPERATIVE NOS 04/26/2016 LELAND BROWN MD Ot E78.5 HYPERLIPIDEMIA, UNSPECIFIED 04/26/2016 LELAND BROWN MD Ot 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 04/26/2016 LELAND BROWN MD Ot I73.9 PERIPHERAL VASCULAR DISEASE, UNSPECIFIED 04/26/2016 LELAND BROWN MD Ot Z82.49 FAMILY HX OF ISCHEM HEART DIS AND OTH DI 05/07/2016 JERRY PITT MD Ot F17.210 NICOTINE DEPENDENCE, CIGARETTES, UNCOMPL 05/07/2016 JERRY PITT MD Ot I10 ESSENTIAL (PRIMARY) HYPERTENSION 09/22/2016 Ot 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0 TRICUSPID VALVE DISEASE 09/22/2016 JACE CORDOVA Ot 401.9 HYPERTENSION NOS 09/22/2016 JACE CORDOVA Ot 414.00 CORON ATHEROSCLER NOS TYPE VESSEL, NATIV 09/22/2016 JACE CORDOVA Ot 424.0 MITRAL VALVE DISORDER 09/22/2016 JACE CORDOVA Ot 786.50 CHEST PAIN NOS 09/22/2016 FRANKIE BOOTH MD Ot 211.3 BENIGN NEOPLASM LG BOWEL 09/22/2016 FRANKIE BOOTH MD Ot V16.0 FAMILY HX-GI MALIGNANCY 09/22/2016 FRANKIE BOOTH MD Ot V76.51 SCREEN MAL NEOP-COLON 09/22/2016 LEOBARDO GUTIERREZ, FRANKIE S Ot V72.84 EXAM PRE-OPERATIVE NOS 09/22/2016 LELAND BROWN MD Ot E78.5 HYPERLIPIDEMIA, UNSPECIFIED 09/22/2016 LELAND BROWN MD Ot 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 09/22/2016 LELAND BROWN MD Ot I73.9 PERIPHERAL VASCULAR DISEASE, UNSPECIFIED 09/22/2016 LELAND BROWN MD Ot Z82.49 FAMILY HX OF ISCHEM HEART DIS AND OTH DI 09/22/2016 JERRY PITT MD Ot F17.210 NICOTINE DEPENDENCE, CIGARETTES, UNCOMPL 09/22/2016 JERRY PITT MD Ot I10 ESSENTIAL (PRIMARY) HYPERTENSION 10/05/2016 LELAND BROWN MD Ot E78.2 MIXED HYPERLIPIDEMIA 10/05/2016 LELAND BROWN MD Ot I10 ESSENTIAL (PRIMARY) HYPERTENSION 10/05/2016 LELAND BROWN MD Ot I63.9 CEREBRAL INFARCTION, UNSPECIFIED 10/05/2016 LELAND BROWN MD Ot I73.9 PERIPHERAL VASCULAR DISEASE, UNSPECIFIED 10/05/2016 LELAND BROWN MD Ot Z72.0 TOBACCO USE 10/16/2016 LELAND BROWN MD Ot E78.2 MIXED HYPERLIPIDEMIA 10/16/2016 LELAND BROWN MD Ot I10 ESSENTIAL (PRIMARY) HYPERTENSION 10/16/2016 LELAND BROWN MD Ot I63.9 CEREBRAL INFARCTION, UNSPECIFIED 10/16/2016 LELAND BROWN MD Ot I73.9 PERIPHERAL VASCULAR DISEASE, UNSPECIFIED 10/16/2016 LELAND BROWN MD Ot Z72.0 TOBACCO USE 10/16/2016 LELAND BROWN MD Ot E78.2 MIXED HYPERLIPIDEMIA 10/16/2016 LELAND BROWN MD Ot I10 ESSENTIAL (PRIMARY) HYPERTENSION 10/16/2016 LELAND BROWN MD Ot I63.9 CEREBRAL INFARCTION, UNSPECIFIED 10/16/2016 LELAND BROWN MD Ot I73.9 PERIPHERAL VASCULAR DISEASE, UNSPECIFIED 10/16/2016 LELAND BROWN MD Ot Z72.0 TOBACCO USE 11/18/2016 JERRY PITT MD Ot R91.8 OTHER NONSPECIFIC ABNORMAL FINDING OF TAMIA Procedures Code [place] [address] THERAPUTIC INJ SQ/IM 12/30/2011 J1885 TORADOL PER 15 MG, INJ KETOROLAC TROMETHAMINE 12/30/2011 57421 INDIV PSYTX 45/50 MIN 12/30/2011 67855 PSYCH DIAG INTER EXAM 01/10/2012 03353 THERAPUTIC INJ SQ/IM 01/18/2012 J1885 TORADOL INJ 01/17 19894 ROUTINE VENIPUNCTURE 02/25/2012 73223 CMP 02/25/2012 18008 LIPID PANEL 02/24 6978801 GFR CALC (RESULT ONLY) 02/25/2012 28535 TSH 02/26/2012 91857 PSYTX PT&/FAMILY 30 MINUTES 03/03/2012 General S Jones Flores 03/07/2012 98118 PSYTX PT&/FAMILY 30 MINUTES 05/16/2012 JONES CLINE 05/17/2012 41931 EKG, TRACING (IN-HOUSE) 06/09/2012 23545 PSYTX PT&/FAMILY 30 MINUTES 06/09/2012 25671 CMP 07/28/2012 68479 LIPID PANEL 07/28 33750 HEMOCCULT 2012 85350 ROUTINE VENIPUNCTURE 08/03/2012 J3301 KENALOG INJ, PER 10 MG 08/03/2012 49404 [facility] 08/03/2012 98917 LIPID PANEL 08/03 7277450 GFR CALC (RESULT ONLY) 08/03/2012 60698 PSYTX PT&/FAMILY 30 MINUTES 08/04/2012 89493 ROUTINE VENIPUNCTURE 10/05/2012 84702 INR (IN HOUSE) 74856 CMP 10/05/2012 76573 ROUTINE VENIPUNCTURE 11/20/2012 25929 LIPID PANEL 11/20 74884 XRAY RIBS RIGHT UNILATERAL 2 OR MORE VIEWS 11/29/2012 24903 DAVID 11/29/2012 89647 OXIMETRY 2012 CARDIOLOG LELAND BROWN 12/12/2012 83438 ROUTINE VENIPUNCTURE 12/19/2012 75850 EKG, TRACING (IN-HOUSE) 12/19/2012 08329 MAGNESIUM 2012 69606 CBC 12/19/2012 3188785 GFR CALC (RESULT ONLY) 12/19/2012 25345 CMP 12/19/2012 75451 TSH 12/19/2012 66544 JOINT INJECTION- LARGE JOINT (SPECIFY MEDCIN DESCRIPTION) 12/28/2012 49278 NUCLEAR STRESS TESTING 01/26/2013 39645 ECHO 2D 2012 18513 XRAY KNEE RIGHT 3 VIEWS 05/29/2013 88035 ROUTINE VENIPUNCTURE 06/07/2013 52992 LIPID PANEL 06/07 04806 JOINT INJECTION- LARGE JOINT (SPECIFY MEDCIN DESCRIPTION) 06/15/2013 FRANKIE STEINER 09/19/2013 42033 ROUTINE VENIPUNCTURE 09/28/2013 41973 CMP 09/28/2013 20097 LIPID PANEL 09/28 73398 CBC 09/28/2013 S0280 COMPREHENSIVE CARE MANAGEMENT 11/01/2013 S0280 HEALTH PROMOTION 11/04/2013 S0281 CARE COORDINATION 11/04/2013 S0280 HEALTH PROMOTION 11/04/2013 S0280 HEALTH PROMOTION 11/19/2013 S0281 REFERRAL TO [facility] 11/19/2013 31177 UA W/ CULTURE IF INDICATED 02/26/2014 51720 CULTURE URINE 09/2014 42750 ROUTINE VENIPUNCTURE 05/16/2014 55270 LIPID PANEL 05/16 68628 LIVER PANEL (LFT) 05/16/2014 Results Encounters ACCT No. Visit Date/Time Discharge Status Pt. Type Provider Facility Loc./Unit Complaint [id number] 05/16/2014 08:25:00 05/16/2014 23: 59:59 CLS Outpatient CALDERON TRAVIS MCGILL Yolanda [id number] 05/10/2014 09:16:00 05/10/2014 23: 59:59 CLS Outpatient LELAND BROWN MD [id number] 03/08/2014 08:54:00 03/08/2014 23: 59:59 CLS Outpatient JERRY PITT MD [id number] 02/26/2014 16:03:00 02/26/2014 23: 59:59 CLS Outpatient YOLANDA MICHELLE APRN [id number] 02/26/2014 16:03:00 02/26/2014 23: 59:59 CLS Outpatient YOLANDA MICHELLE APRN [id number] 12/14/2013 10:06:00 12/14/2013 23: 59:59 CLS Outpatient JERRY PITT MD [id number] 11/06/2013 13:00:00 11/06/2013 23: 59:59 CLS Outpatient BELINDA KHAN RN [id number] 10/30/2013 13:37:00 10/30/2013 23: 59:59 CLS Outpatient BELINDA KHAN RN [id number] 10/26/2013 16:31:00 10/26/2013 23: 59:59 CLS Outpatient BELINDA KHAN RN [id number] 09/28/2013 09:31:00 09/28/2013 23: 59:59 CLS Outpatient TRAVIS MANCERA DO [id number] 09/20/2013 10:39:00 09/20/2013 23: 59:59 CLS Outpatient DIYA GODFREY APRN [id number] 09/19/2013 14:09:00 09/19/2013 23: 59:59 CLS Outpatient JERRY PITT MD [id number] 07/24/2013 08:42:00 07/24/2013 23: 59:59 CLS Outpatient DIYA GODFREY APRN [id number] 06/15/2013 09:05:00 06/15/2013 23: 59:59 CLS Outpatient JERRY PITT MD [id number]

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
[2017-01-07] MEDS ORDERED: CYCL5TAB PO (12:46)
[2017-01-07 12:57] VITALS: BP 168/95
== END 2017-01-07 12:57 | disposition home or self-care (01) ==
LOC: EDUNIT# 11:27 → ER 11:29
DX: S16.1XXA Strain of muscle, fascia and tendon at neck level, initial encounter (principal); I25.10 Atherosclerotic heart disease of native coronary artery without angina pectoris; I25.2 Old myocardial infarction; F17.200 Nicotine dependence, unspecified, uncomplicated; Z98.52 Vasectomy status; Z79.82 Long term (current) use of aspirin; V63.6XXA Passenger in heavy transport vehicle injured in collision with car, pick-up truck or van in traffic accident, initial encounter; Y92.85 Railroad track as the place of occurrence of the external cause
CPT/HCPCS: 70450; 72100; 72125; 99282

== ENCOUNTER 2017-02-22 09:35 | Day surgery (SDC) | payer MEDICAID ==
[~2017-02-22] VITALS: Ht 177.8 cm; Wt 92.6 kg
[~2017-02-22 09:35] MED LIST changes: +CYCL5TAB PO
--- OUTSIDE RECORDS SUMMARY | 2017-02-22 09:46 | XMS REPORT | Continuity of Care Document ---
Author Author Formerly [facility] Address Unknown Phone Unavailable Allergies Active Description Code Type Severity Reaction Onset Reported/Identified Relationship to Patient Clinical Status Yes No Known Drug Allergies [id number] Drug Allergy Unknown N/A 06/25/2015 Medications There is no data. Problems Date Dx Coded Attending Type Code [...] Diagnosis Of Hypertension 12/16/2011 MEHUL WILLINGHAM MD, KALNI A 296.80 BIPOLAR DISORDER UNSPECIFIED 12/16/2011 MEHUL [...] JERRY PITT MD 305.1 TOBACCO ABUSE 12/16/2011 YOANDY GUTIERREZ, JERRY Aldana 719.41 JOINT PAIN, LOCALIZED IN THE SHOULDER [...] JOINT PAIN, LOCALIZED IN THE SHOULDER 12/16/2011 TRAVIS MANCERA DO K 796.2 Elevated Blood Pressure Reading Without [...] Reading Without Diagnosis Of Hypertension 12/16/2011 BEKAH SECURITY ADVISOR, DIYA 296.80 BIPOLAR DISORDER UNSPECIFIED 12/16/2011 BEKAH SECURITY ADVISOR, DIYA 305.1 TOBACCO ABUSE 12/16/2011 BEKAH SECURITY ADVISOR, DIYA 719.41 JOINT PAIN, LOCALIZED IN THE SHOULDER 12/16/2011 BEKAH SECURITY ADVISOR, DIYA 796.2 Elevated Blood Pressure Reading Without Diagnosis Of Hypertension 12/16/2011 JERRY PITT MD N 296.80 BIPOLAR DISORDER UNSPECIFIED 12/16/2011 JERRY PITT MD N 305.1 TOBACCO ABUSE 12/16/2011 JERRY PITT MD N 719.41 JOINT PAIN, LOCALIZED IN THE SHOULDER 12/16/2011 JERRY PITT MD N 796.2 Elevated Blood Pressure Reading Without Diagnosis Of Hypertension 12/16/2011 BEKAH SECURITY ADVISOR, DIYA 296.80 BIPOLAR DISORDER UNSPECIFIED 12/16/2011 BEKAH SECURITY ADVISOR, DIYA 305.1 TOBACCO ABUSE 12/16/2011 BEKAH SECURITY ADVISOR, DIYA 719.41 JOINT PAIN, LOCALIZED IN THE SHOULDER 12/16/2011 BEKAH SECURITY ADVISOR, DIYA 796.2 Elevated Blood Pressure Reading Without Diagnosis Of Hypertension 12/16/2011 MANCERA DO TRAVIS K 296.80 BIPOLAR DISORDER UNSPECIFIED 12/16/2011 MANCERA DO TRAVIS K 305.1 TOBACCO ABUSE 12/16/2011 MANCERA DO TRAVIS K 719.41 JOINT PAIN, LOCALIZED IN THE SHOULDER 12/16/2011 MANCERA DO, TRAVIS K 796.2 Elevated Blood Pressure Reading Without Diagnosis Of Hypertension 12/16/2011 BELINDA KHAN RN 296.80 BIPOLAR DISORDER UNSPECIFIED 12/16/2011 BELINDA KHAN RN 305.1 TOBACCO ABUSE 12/16/2011 BELINDA KHAN RN 719.41 JOINT PAIN, LOCALIZED IN THE SHOULDER 12/16/2011 BELINDA KHAN RN 796.2 Elevated Blood Pressure Reading Without Diagnosis Of Hypertension 12/16/2011 KHAN RN, BELINDA E 296.80 BIPOLAR DISORDER UNSPECIFIED 12/16/2011 ERIN RN, BELINDA E 305.1 TOBACCO ABUSE 12/16/2011 ERIN RN, BELINDA E 719.41 JOINT PAIN, LOCALIZED IN THE SHOULDER 12/16/2011 ERIN RN, BELINDA E 796.2 Elevated Blood Pressure Reading Without Diagnosis Of Hypertension 12/16/2011 ERIN RN, BELINDA E 296.80 BIPOLAR DISORDER UNSPECIFIED 12/16/2011 ERIN RN, [...] MICHELLE APRN R 305.1 TOBACCO ABUSE 12/16/2011 YOLANDA MICHELLE APRN R 719.41 JOINT PAIN, LOCALIZED IN THE [...] Pressure Reading Without Diagnosis Of Hypertension 12/16/2011 HIMANSHU MICHELLE APRNINA R 296.80 BIPOLAR DISORDER UNSPECIFIED 12/16/2011 HIMANSHU [...] JOINT PAIN, LOCALIZED IN THE SHOULDER 12/16/2011 KEVIN GUTIERREZ, LELAND 796.2 Elevated Blood Pressure Reading Without Diagnosis Of Hypertension 12/16/2011 TRAVIS MANCERA DO K 296.80 BIPOLAR DISORDER UNSPECIFIED 12/16/2011 HOLYL MANCERA DOA K 305.1 TOBACCO ABUSE 12/16/2011 HOLLY MANCERA DOA K 719.41 JOINT PAIN, LOCALIZED IN THE SHOULDER 12/16/2011 HOLLY MANCERA DOA K 796.2 Elevated Blood Pressure Reading Without Diagnosis Of Hypertension 12/30/2011 HOLLY MANCERA DOA K 401.1 HYPERTENSION, BENIGN ESSENTIAL 12/30/2011 401.1 HYPERTENSION, BENIGN ESSENTIAL 12/30/2011 401.1 HYPERTENSION, BENIGN ESSENTIAL 12/30/2011 401.1 HYPERTENSION, BENIGN ESSENTIAL 12/30/2011 HOLLY MANCERA DOA K 401.1 HYPERTENSION, BENIGN ESSENTIAL 12/30/2011 401.1 [...] TRAVIS K 401.1 HYPERTENSION, BENIGN ESSENTIAL 12/30/2011 HOLLY MANCERA DOA K 401.1 HYPERTENSION, BENIGN ESSENTIAL 12/30/2011 CALDERON MCGILL TRAVIS K 401.1 HYPERTENSION, BENIGN ESSENTIAL 12/30/2011 CALDERON MCGILLHOLLYA K 401.1 HYPERTENSION, BENIGN ESSENTIAL 12/30/2011 SANTY VALLEJO APRN 401.1 HYPERTENSION, BENIGN ESSENTIAL 12/30/2011 CALDERON DO TRAVIS K 401.1 HYPERTENSION, BENIGN ESSENTIAL 12/30/2011 YOANDY GUTIERREZ, JERRY Aldana 401.1 HYPERTENSION, BENIGN ESSENTIAL 12/30/2011 SANTY VALLEJO APRN 401.1 HYPERTENSION, BENIGN ESSENTIAL 12/30/2011 JERRY PITT MD N 401.1 HYPERTENSION, BENIGN ESSENTIAL 12/30/2011 SANTY VALLEJO APRN 401.1 HYPERTENSION, BENIGN ESSENTIAL 12/30/2011 JERRY PITT MD 401.1 HYPERTENSION, BENIGN ESSENTIAL 12/30/2011 JERRY PITT MD 401.1 HYPERTENSION, BENIGN ESSENTIAL 12/30/2011 DIYA GODFREY APRN 401.1 HYPERTENSION, BENIGN ESSENTIAL 12/30/2011 JERRY PITT MD 401.1 HYPERTENSION, BENIGN ESSENTIAL 12/30/2011 DIYA GODRFEY APRN 401.1 HYPERTENSION, BENIGN ESSENTIAL 12/30/2011 TRAVIS MANCERA DO K 401.1 HYPERTENSION, BENIGN ESSENTIAL 12/30/2011 ERIN DIEGO, BELINDA E 401.1 HYPERTENSION, BENIGN ESSENTIAL 12/30/2011 ERIN DIEGO, BELINDA E 401.1 HYPERTENSION, BENIGN ESSENTIAL 12/30/2011 ERIN DIEGO, BELINDA E 401.1 HYPERTENSION, BENIGN ESSENTIAL 12/30/2011 JERRY PITT MD N 401.1 HYPERTENSION, BENIGN ESSENTIAL 12/30/2011 HIMANSHU MICHELLE APRNINA R 401.1 HYPERTENSION, BENIGN ESSENTIAL 12/30/2011 JERRY PITT MD N 401.1 HYPERTENSION, BENIGN ESSENTIAL 12/30/2011 MIGUEL ANGEL PANDYA YOLANDA R 401.1 HYPERTENSION, BENIGN ESSENTIAL 12/30/2011 LELAND BROWN MD 401.1 HYPERTENSION, BENIGN ESSENTIAL 12/30/2011 HOLLY MANCERA DOA K 401.1 HYPERTENSION, BENIGN ESSENTIAL 01/07/2012 TRAVIS MANCERA DO K 295.70 P SCHIZO AFFECTIVE 01/07/2012 295.70 P SCHIZO AFFECTIVE 01/07/2012 295.70 P SCHIZO AFFECTIVE 01/07/2012 295.70 P SCHIZO AFFECTIVE 01/07/2012 MANCERA DO, TRAVIS K 295.70 P SCHIZO AFFECTIVE 01/07/2012 295.70 P SCHIZO AFFECTIVE 01/07/2012 295.70 P SCHIZO AFFECTIVE 01/07/2012 295.70 P SCHIZO AFFECTIVE 01/07/2012 295.70 P SCHIZO AFFECTIVE 01/07/2012 MEHUL WILLINGHAM MD, KALIN Cornejo 295.70 P SCHIZO AFFECTIVE 01/07/2012 295.70 P [...] P SCHIZO AFFECTIVE 01/07/2012 YOANDY GUTIERREZ, JERRY Aldana 295.70 P SCHIZO AFFECTIVE 01/07/2012 MANCERA DOHOLLYA K 295.70 P SCHIZO AFFECTIVE 01/07/2012 MANCERA DO, TRAVIS K 295.70 P SCHIZO AFFECTIVE 01/07/2012 MANCERA DOHOLLYA K 295.70 P SCHIZO AFFECTIVE 01/07/2012 MANCERA DO, TRAVIS K 295.70 P SCHIZO AFFECTIVE 01/07/2012 SANTY VALLEJO APRN 295.70 P SCHIZO AFFECTIVE 01/07/2012 MANCERA HOLLY MCGILLA K 295.70 P SCHIZO AFFECTIVE 01/07/2012 JERRY PITT MD 295.70 P SCHIZO AFFECTIVE 01/07/2012 SANTY VALLEJO APRN 295.70 P SCHIZO AFFECTIVE 01/07/2012 JERRY PITT MD 295.70 P SCHIZO AFFECTIVE 01/07/2012 SANTY VALLEJO APRN 295.70 P SCHIZO AFFECTIVE 01/07/2012 JERRY PITT MD 295.70 P SCHIZO AFFECTIVE 01/07/2012 JERRY PITT MD 295.70 P SCHIZO AFFECTIVE 01/07/2012 DIYA GODFREY APRN 295.70 P SCHIZO AFFECTIVE 01/07/2012 YOANDY GUTIERREZ, JERRY N 295.70 P SCHIZO AFFECTIVE 01/07/2012 DIYA GODFREY APRN 295.70 P SCHIZO AFFECTIVE 01/07/2012 TRAVIS MANCERA DO K 295.70 P SCHIZO AFFECTIVE 01/07/2012 ERIN RN, BELINDA E 295.70 P SCHIZO AFFECTIVE 01/07/2012 ERIN RN, BELINDA E 295.70 P SCHIZO AFFECTIVE 01/07/2012 ERIN DIEGO, BELINDA E 295.70 P SCHIZO AFFECTIVE 01/07/2012 YOANDY GUTIERREZ, JERRY N 295.70 P SCHIZO AFFECTIVE 01/07/2012 MIGUEL ANGEL PANDYA, YOLANDA R 295.70 P SCHIZO AFFECTIVE 01/07/2012 YOANDY GUTIERREZ, JERRY N 295.70 P SCHIZO AFFECTIVE 01/07/2012 MIGUEL ANGEL PANDYA, YOLANDA R 295.70 P SCHIZO AFFECTIVE 01/07/2012 KEVIN GUTIERREZ, LELAND 295.70 P SCHIZO AFFECTIVE 01/07/2012 TRAVIS MANCERA DO K 295.70 P SCHIZO AFFECTIVE 01/18/2012 TRAVIS MANCERA [...] 724.2 LUMBAGO/ LOW BACK PAIN 01/18/2012 MANCERA HOLLY MCGILLA K 724.2 LUMBAGO/ LOW BACK PAIN 01/18/2012 ERIN RN, BELINDA E 724.2 LUMBAGO/ LOW BACK PAIN 01/18/2012 ERIN RN, BELINDA E 724.2 LUMBAGO/ LOW BACK PAIN 01/18/2012 ERIN RN, BELINDA E 724.2 LUMBAGO/ LOW BACK PAIN 01/18/2012 YOANDY GUTIERREZ, JERRY N 724.2 LUMBAGO/ LOW BACK PAIN 01/18/2012 MIGUEL ANGEL PANDYA, YOLANDA R 724.2 LUMBAGO/ LOW BACK PAIN 01/18/2012 YOANDY GUTIERREZ, JERRY N 724.2 LUMBAGO/ LOW BACK PAIN 01/18/2012 MIGUEL ANGEL PANDYA, YOLANDA R 724.2 LUMBAGO/ LOW BACK PAIN 01/18/2012 KEVIN GUTIERREZ, LELAND 724.2 LUMBAGO/ LOW BACK PAIN 01/18/2012 MANCERA DOTRAVIS K 724.2 LUMBAGO/ LOW BACK PAIN 02/24/2012 380.22 OTHER ACUTE OTITIS EXTERNA 02/24/2012 V03.82 PPV23 ( PNEUMOVAX) DX 02/24/2012 V04.81 FLU DX (3 YRS AND ABOVE, IM) 02/24/2012 V06.1 TDAP DX 02/24/2012 380.22 OTHER ACUTE OTITIS EXTERNA 02/24/2012 V03.82 PPV23 ( PNEUMOVAX) DX 02/24/2012 V04.81 FLU DX (3 YRS AND ABOVE, IM) 02/24/2012 V06.1 TDAP DX 02/24/2012 MANCERA HOLLY MCGILLA K 380.22 OTHER ACUTE OTITIS EXTERNA 02/24/2012 MANCERA TRAVIS MCGILL K V03.82 PPV23 (PNEUMOVAX) DX 02/24/2012 CALDERON MCGILLTRAVIS K V04.81 FLU DX (3 YRS AND ABOVE, IM) 02/24/2012 CALDERON MCGILLTRAVIS K V06.1 TDAP DX 02/24/2012 380.22 OTHER ACUTE OTITIS EXTERNA 02/24/2012 V03.82 PPV23 ( PNEUMOVAX) DX 02/24/2012 V04.81 FLU DX (3 YRS AND ABOVE, IM) 02/24/2012 V06.1 TDAP DX 02/24/2012 380.22 OTHER ACUTE OTITIS EXTERNA 02/24/2012 V03.82 PPV23 ( PNEUMOVAX) DX 02/24/2012 V04.81 FLU DX (3 YRS AND ABOVE, IM) 02/24/2012 V06.1 TDAP DX 02/24/2012 380.22 OTHER ACUTE OTITIS EXTERNA 02/24/2012 V03.82 PPV23 ( PNEUMOVAX) DX 02/24/2012 V04.81 FLU DX (3 YRS AND ABOVE, IM) 02/24/2012 V06.1 TDAP DX 02/24/2012 380.22 Other Acute Otitis Externa 02/24/2012 V03.82 Ppv23 ( pneumovax) Dx 02/24/2012 V04.81 Flu Dx (3 Yrs And Above, Im) 02/24/2012 V06.1 Tdap Dx 02/24/2012 MEHUL WILLINGHAM MD, KALIN Cornejo 380.22 Other Acute Otitis Externa 02/24/2012 MEHUL WILLINGHAM MD, KALIN Cornejo V03.82 Ppv23 (pneumovax) Dx 02/24/2012 MEHUL WILLINGHAM MD, KALIN Cornejo V04.81 Flu Dx (3 Yrs And Above, Im) 02/24/2012 KALIN PELAYO MD V06.1 Tdap Dx 02/24/2012 380.22 Other Acute Otitis Externa 02/24/2012 V03.82 Ppv23 ( pneumovax) Dx 02/24/2012 V04.81 Flu Dx (3 Yrs And Above, Im) 02/24/2012 V06.1 Tdap Dx 02/24/2012 380.22 Other Acute Otitis Externa 02/24/2012 V03.82 Ppv23 ( pneumovax) Dx 02/24/2012 V04.81 Flu Dx (3 Yrs And Above, Im) 02/24/2012 V06.1 Tdap Dx 02/24/2012 380.22 Other Acute Otitis Externa 02/24/2012 V03.82 Ppv23 ( pneumovax) Dx 02/24/2012 V04.81 Flu Dx (3 Yrs And Above, Im) 02/24/2012 V06.1 Tdap Dx 02/24/2012 380.22 Other Acute Otitis Externa 02/24/2012 V03.82 Ppv23 ( pneumovax) Dx 02/24/2012 V04.81 Flu Dx (3 Yrs And Above, Im) 02/24/2012 V06.1 Tdap Dx 02/24/2012 380.22 Other Acute Otitis Externa 02/24/2012 V03.82 Ppv23 ( pneumovax) Dx 02/24/2012 V04.81 Flu Dx (3 Yrs And Above, Im) 02/24/2012 V06.1 Tdap Dx 02/24/2012 380.22 Other Acute Otitis Externa 02/24/2012 V03.82 Ppv23 ( pneumovax) Dx 02/24/2012 V04.81 Flu Dx (3 Yrs And Above, Im) 02/24/2012 V06.1 Tdap Dx 02/24/2012 380.22 Other Acute Otitis Externa 02/24/2012 V03.82 Ppv23 ( pneumovax) Dx 02/24/2012 V04.81 Flu Dx (3 Yrs And Above, Im) 02/24/2012 V06.1 Tdap Dx 02/24/2012 380.22 Other Acute Otitis Externa 02/24/2012 V03.82 Ppv23 ( pneumovax) Dx 02/24/2012 V04.81 Flu Dx (3 Yrs And Above, Im) 02/24/2012 V06.1 Tdap Dx 02/24/2012 380.22 Other Acute Otitis Externa 02/24/2012 V03.82 Ppv23 ( pneumovax) Dx 02/24/2012 V04.81 Flu Dx (3 Yrs And Above, Im) 02/24/2012 V06.1 Tdap Dx 02/24/2012 380.22 Other Acute Otitis Externa 02/24/2012 V03.82 Ppv23 ( pneumovax) Dx 02/24/2012 V04.81 Flu Dx (3 Yrs And Above, Im) 02/24/2012 V06.1 Tdap Dx 02/24/2012 380.22 Other Acute Otitis Externa 02/24/2012 V03.82 Ppv23 ( pneumovax) Dx 02/24/2012 V04.81 Flu Dx (3 Yrs [...] VALLEJO APRN V06.1 Tdap Dx 02/24/2012 CALDERON MCGILLHOLLYA K 380.22 Other Acute Otitis Externa 02/24/2012 CALDERON MCGILL, TRAVIS K V03.82 Ppv23 (pneumovax) Dx 02/24/2012 CALDERON MCGILL, TRAVIS K V04.81 Flu Dx (3 Yrs [...] JERRY PITT MD V06.1 Tdap Dx 02/24/2012 ARTIE GODFREY APRNETTE 380.22 Other Acute Otitis Externa 02/24/2012 ARTIE [...] DIYA 380.22 Other Acute Otitis Externa 02/24/2012 BEKAH PANDYA DIYA V03.82 Ppv23 (pneumovax) Dx 02/24/2012 BEKAH PANDYA DIYA V04.81 Flu Dx (3 Yrs And Above, Im) 02/24/2012 BEKAH PANDYA DIYA V06.1 Tdap Dx 02/24/2012 TRAVIS MANCERA DO 380.22 Other Acute Otitis Externa 02/24/2012 TRAVIS MANCERA DO K V03.82 Ppv23 (pneumovax) Dx 02/24/2012 TRAVIS MANCERA DO K V04.81 Flu Dx (3 Yrs And Above, Im) 02/24/2012 TRAVIS MANCERA DO K V06.1 Tdap Dx 02/24/2012 BELINDA KHAN RN 380.22 Other Acute Otitis Externa 02/24/2012 BELINDA KHAN RN E V03.82 Ppv23 (pneumovax) Dx 02/24/2012 BELINDA KHAN RN E V04.81 Flu Dx (3 Yrs And Above, Im) 02/24/2012 BELINDA KHAN RN E V06.1 Tdap Dx 02/24/2012 BELINDA KHAN RN E 380.22 Other Acute Otitis Externa 02/24/2012 BELINDA KHAN RN E V03.82 Ppv23 (pneumovax) Dx 02/24/2012 BELINDA KHAN RN E V04.81 Flu Dx (3 Yrs And Above, Im) 02/24/2012 BLEINDA KHAN RN E V06.1 Tdap Dx 02/24/2012 BELINDA KHAN RN E 380.22 Other Acute Otitis Externa 02/24/2012 BELINDA KHAN RN E V03.82 Ppv23 (pneumovax) Dx 02/24/2012 BELINDA HKAN RN E V04.81 Flu Dx (3 Yrs And Above, Im) 02/24/2012 BELINDA KHAN RN E V06.1 Tdap Dx 02/24/2012 JERRY PITT [...] Dx (3 Yrs And Above, Im) 02/24/2012 MIGUELA NGEL PANDYA YOLANDA R V06.1 Tdap Dx 02/24/2012 JERRY [...] Yrs And Above, Im) 02/24/2012 MIGUEL ANGEL PANDYA YOLANDA R V06.1 Tdap Dx 02/24/2012 LELAND [...] USE OF OTHER MEDICATIONS 02/25/2012 V58.69 LONG-TERM ( CURRENT) USE OF OTHER MEDICATIONS 02/25/2012 V58.69 LONG-TERM ( CURRENT) USE OF OTHER MEDICATIONS 02/25/2012 V58.69 LONG-TERM ( CURRENT) USE OF OTHER MEDICATIONS 02/25/2012 V58.69 Long-term ( current) Use Of Other Medications 02/25/2012 MEHUL WILLINGHAM MD, KALIN Cornejo V58.69 Long-term (current) Use Of Other Medications 02/25/2012 V58.69 Long-term ( current) Use Of Other Medications 02/25/2012 V58.69 Long-term ( current) Use Of Other Medications 02/25/2012 V58.69 Long-term ( current) Use Of Other Medications 02/25/2012 V58.69 Long-term ( current) Use Of Other Medications 02/25/2012 V58.69 Long-term ( current) Use Of Other Medications 02/25/2012 V58.69 Long-term ( current) Use Of Other Medications 02/25/2012 V58.69 Long-term ( current) Use Of Other Medications 02/25/2012 V58.69 Long-term ( current) Use Of Other Medications 02/25/2012 V58.69 Long-term ( current) Use Of Other Medications 02/25/2012 V58.69 Long-term ( current) Use Of Other Medications 02/25/2012 V58.69 Long-term ( current) Use Of Other Medications 02/25/2012 IBRAHIMA WATTS [...] (current) Use Of Other Medications 02/25/2012 TRAVIS MACNERA DO V58.69 Long-term (current) Use Of Other [...] TRAVIS MANCERA DO 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 03/02/2012 TRAVIS MANCERA DO 307.47 SI DYSSOMNIA NOS 03/02/2012 300.00 AN [...] KALIN A 300.00 AN ANXIETY UNSPEC 03/02/2012 MEHUL WILLINGHAM MD, KALIN A 303.90 ALCOHOL DEPENDENCE 03/02/2012 MEHUL WILLINGHAM MD, KALIN A 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 03/02/2012 MEHUL WILLINGHAM MD, KALIN A 307.47 SI DYSSOMNIA NOS 03/02/2012 300.00 [...] PITT MD 307.47 SI DYSSOMNIA NOS 03/02/2012 TRAVIS MANCERA DO 300.00 AN ANXIETY UNSPEC 03/02/2012 HOLLY MANCERA DOA K 303.90 ALCOHOL DEPENDENCE 03/02/2012 HOLLY MANCERA DOA K 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 03/02/2012 HOLLY MANCERA DOA K 307.47 SI DYSSOMNIA NOS 03/02/2012 TRAVIS MANCERA DO K 300.00 AN ANXIETY UNSPEC 03/02/2012 MANCERA DO, TRAVIS K 303.90 ALCOHOL DEPENDENCE 03/02/2012 MANCERA DO, RTAVIS K 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 03/02/2012 MANCERA DO, [...] VALLEJO APRN 307.47 SI DYSSOMNIA NOS 03/02/2012 MANCERA DO, [...] MD N 307.47 SI DYSSOMNIA NOS 03/02/2012 BEKAHKAREN PANDYA, DIYA 300.00 AN ANXIETY UNSPEC 03/02/2012 BEKAH PANDYA, DIYA 303.90 ALCOHOL DEPENDENCE 03/02/2012 BEKAH SECURITY ADVISOR, DIYA 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 03/02/2012 BEKAH SECURITY ADVISOR, DIYA 307.47 SI DYSSOMNIA NOS 03/02/2012 JERRY PITT MD N 300.00 AN ANXIETY UNSPEC 03/02/2012 JERRY PITT MD N 303.90 ALCOHOL DEPENDENCE 03/02/2012 JERRY PITT MD N 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 03/02/2012 JERRY PITT MD N 307.47 SI DYSSOMNIA NOS 03/02/2012 BEKAHKAREN PANDYA, DIYA 300.00 AN ANXIETY UNSPEC 03/02/2012 BEKAH SECURITY ADVISOR, DIYA 303.90 ALCOHOL DEPENDENCE 03/02/2012 BEKAH SECURITY ADVISOR, DIYA 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 03/02/2012 BEKAH SECURITY ADVISOR, DIYA 307.47 SI DYSSOMNIA NOS 03/02/2012 CALDERON MCGILL, TRAVIS K 300.00 AN ANXIETY UNSPEC 03/02/2012 MANCERA , TRAVIS K 303.90 ALCOHOL DEPENDENCE 03/02/2012 MANCERA , TRAVIS K 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 03/02/2012 MANCERA [...] BELINDA E 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 03/02/2012 ERIN RN, BELINDA E 307.47 SI DYSSOMNIA NOS 03/02/2012 ERIN DIEGO, BELINDA E 300.00 AN ANXIETY UNSPEC 03/02/2012 ERIN DIEGO, BELINDA E 303.90 ALCOHOL DEPENDENCE 03/02/2012 ERIN RN, BELINDA E 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 03/02/2012 ERIN RN, BELINDA E 307.47 SI DYSSOMNIA NOS 03/02/2012 JERRY PITT MD N 300.00 AN ANXIETY UNSPEC 03/02/2012 JERRY PITT MD N 303.90 ALCOHOL DEPENDENCE 03/02/2012 JERRY PITT MD N 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 03/02/2012 JERRY PITT MD N 307.47 SI DYSSOMNIA NOS 03/02/2012 HIMANSHU MICHELLE APRNINA R 300.00 AN ANXIETY UNSPEC 03/02/2012 HIMANSHU MICHELLE APRNINA R 303.90 ALCOHOL DEPENDENCE 03/02/2012 MIGUEL ANGEL PANDYA, OYLANDA R 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 03/02/2012 MIGUEL ANGEL PANDYA YOLANDA R 307.47 SI DYSSOMNIA NOS 03/02/2012 JERRY PITT MD N 300.00 AN ANXIETY UNSPEC 03/02/2012 JERRY PITT MD N 303.90 ALCOHOL DEPENDENCE 03/02/2012 YOANDY GUTIERREZ, JERRY N 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 03/02/2012 JERRY PITT MD N 307.47 SI DYSSOMNIA NOS 03/02/2012 MIGUEL ANGEL SECURITY ADVISOR, YOLANDA R 300.00 AN ANXIETY UNSPEC 03/02/2012 MIGUEL ANGEL SECURITY ADVISOR, YOLANDA R 303.90 ALCOHOL DEPENDENCE 03/02/2012 MIGUEL ANGEL SECURITY ADVISOR, YOLANDA R 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 03/02/2012 MIGUEL ANGEL PANDYA, YOLANDA R 307.47 SI DYSSOMNIA NOS 03/02/2012 LELAND BROWN MD 300.00 AN ANXIETY UNSPEC 03/02/2012 LELAND BROWN MD 303.90 ALCOHOL DEPENDENCE 03/02/2012 LELAND BROWN MD 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 03/02/2012 LELAND BROWN MD 307.47 SI DYSSOMNIA NOS 03/02/2012 CALDERON MCGILL TRAVIS K 300.00 AN ANXIETY UNSPEC 03/02/2012 CALDERON MCGILL TRAVIS K 303.90 ALCOHOL DEPENDENCE 03/02/2012 CALDERON MCGILL TRAVIS K 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 03/02/2012 CALDERON MCGILL TRAVIS K 307.47 SI DYSSOMNIA NOS 03/06/2012 MANCERA , TRAVIS K 682.6 CELLULITIS AND ABSCESS OF LEG EXCEPT FOOT 03/06/2012 682.6 CELLULITIS AND ABSCESS OF LEG EXCEPT FOOT 03/06/2012 682.6 CELLULITIS AND ABSCESS OF LEG EXCEPT FOOT 03/06/2012 682.6 CELLULITIS AND ABSCESS OF LEG EXCEPT FOOT 03/06/2012 682.6 Cellulitis And Abscess Of Leg Except Foot 03/06/2012 MEHUL WILLINGHAM MD, KALIN A 682.6 Cellulitis And Abscess Of Leg [...] And Abscess Of Leg Except Foot 03/06/2012 KEVIN GUTIERREZ, LELAND 682.6 Cellulitis And Abscess Of Leg Except Foot 03/06/2012 TRAVIS MANCERA DO 682.6 Cellulitis And Abscess Of Leg Except Foot 03/22/2012 Ot 296.80 BIPOLAR DISORDER, UNSPECIFIED 03/22/2012 Ot 305.1 TOBACCO USE DISORDER 03/22/2012 Ot 401.9 HYPERTENSION NOS 03/22/2012 Ot 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 03/22/2012 Ot V58.69 OTH MED,LT, CURRENT USE 03/22/2012 Ot V90.9 RETAINED FOREIGN BODY, UNSPECIFIED MATER 05/16/2012 214.9 LIPOMA 05/16/2012 719.43 PAIN- WRIST 05/16/2012 KALIN PELAYO MD 214.9 LIPOMA 05/16/2012 KALIN PELAYO MD 719.43 [...] 05/16/2012 JERRY PITT MD 214.9 LIPOMA 05/16/2012 YOANDY MD, JERRY N 719.43 PAIN- WRIST 05/16/2012 SANTY VALLEJO APRN 214.9 LIPOMA 05/16/2012 SANTY VALLEJO APRN 719.43 PAIN- WRIST 05/16/2012 JERRY PITT MD N 214.9 LIPOMA 05/16/2012 JERRY PITT MD 719.43 PAIN- WRIST 05/16/2012 JERRY PITT MD 214.9 LIPOMA 05/16/2012 JERRY PITT MD N 719.43 PAIN- WRIST 05/16/2012 BEKAH SECURITY ADVISOR, DIYA 214.9 LIPOMA 05/16/2012 BEKAH SECURITY ADVISOR, DIYA 719.43 PAIN- WRIST 05/16/2012 JERRY PITT MD N 214.9 LIPOMA 05/16/2012 JERRY PITT MD N 719.43 PAIN- WRIST 05/16/2012 BEKAH SECURITY ADVISOR, DIAY 214.9 LIPOMA 05/16/2012 BEKAH SECURITY ADVISOR, DIYA 719.43 PAIN- WRIST 05/16/2012 MANCERA DO, TRAVIS K 214.9 LIPOMA 05/16/2012 MANCERA DO, TRAVIS K 719.43 PAIN- WRIST 05/16/2012 ERIN DIEGO, BELINDA E 214.9 LIPOMA 05/16/2012 ERIN DIEGO, BELINDA E 719.43 PAIN- WRIST 05/16/2012 ERIN DIEGO, BELINDA E 214.9 LIPOMA 05/16/2012 ERIN DIEGO, BELINDA E 719.43 PAIN- WRIST 05/16/2012 BELINDA KHAN RN E 214.9 LIPOMA 05/16/2012 ERIN DIEGO, BELINDA E 719.43 PAIN- WRIST 05/16/2012 JERRY PITT MD N 214.9 LIPOMA 05/16/2012 JERRY PITT MD 719.43 PAIN- WRIST 05/16/2012 YOLANDA MICHELLE APRN R 214.9 LIPOMA 05/16/2012 YOLANDA MICHELLE APRN R 719.43 PAIN- WRIST 05/16/2012 JERRY PITT MD N 214.9 LIPOMA 05/16/2012 JERRY PITT MD 719.43 PAIN- WRIST 05/16/2012 YOLANDA MICHELLE APRN R 214.9 LIPOMA 05/16/2012 MIGUEL ANGEL PANDYA, YOLANDA R 719.43 PAIN- WRIST 05/16/2012 LELAND BROWN MD 214.9 LIPOMA 05/16/2012 LELAND BROWN MD 719.43 PAIN- WRIST 05/16/2012 MANCERA , TRAVIS K 214.9 LIPOMA 05/16/2012 MANCERA DO, [...] MD V58.69 MEDICATION HIGH RISK 06/09/2012 MANCERA DO, [...] JERRY Aldana V58.69 MEDICATION HIGH RISK 06/09/2012 BEKAH PANDYA, DIYA V58.69 MEDICATION HIGH RISK 06/09/2012 TRAVIS MANCERA DO K V58.69 MEDICATION HIGH RISK 06/09/2012 ERIN DIEGO, BELINDA E V58.69 MEDICATION HIGH RISK 06/09/2012 ERIN DIEGO, BELINDA E V58.69 MEDICATION HIGH RISK 06/09/2012 ERIN DIEGO, BELINDA E V58.69 MEDICATION HIGH RISK 06/09/2012 YOANDY GUTIERREZ, JERRY Aldana V58.69 MEDICATION HIGH RISK 06/09/2012 MIGUEL ANGEL PANDYA, YOLANDA R V58.69 MEDICATION HIGH RISK 06/09/2012 YOANDY GUTIERREZ, [...] MANCERA DOA K V25.2 VASECTOMY 06/12/2012 MANCERA DO TRAVIS K V25.2 VASECTOMY 06/12/2012 CALDERON MCGILL TRAVIS K V25.2 VASECTOMY 06/12/2012 SANTY VALLEJO APRN V25.2 VASECTOMY 06/12/2012 TRAVIS MANCERA DO K V25.2 VASECTOMY 06/12/2012 YOANDY GUTIERREZ, JERRY Aldana V25.2 VASECTOMY 06/12/2012 SANTY VALLEJO APRN V25.2 VASECTOMY 06/12/2012 YOANDY GUTIERREZ, JERRY Aldana V25.2 VASECTOMY 06/12/2012 SANTY VALLEJO APRN V25.2 VASECTOMY 06/12/2012 YOANDY GUTIERREZ, JERRY Aldana V25.2 VASECTOMY 06/12/2012 JERRY PITT MD V25.2 VASECTOMY 06/12/2012 BEKAH PANDYA, DIYA V25.2 VASECTOMY 06/12/2012 YOANDY GUTIERREZ, JERRY Aldana V25.2 VASECTOMY 06/12/2012 BEKAH PANDYA, DIYA V25.2 VASECTOMY 06/12/2012 CALDERON MCGILL, TRAVIS Guerrero V25.2 VASECTOMY 06/12/2012 ERIN DIEGO, BELINDA E V25.2 VASECTOMY 06/12/2012 ERIN DIEGO, BELINDA E V25.2 VASECTOMY 06/12/2012 ERIN DIEGO, BELINDA E V25.2 VASECTOMY 06/12/2012 JERRY PITT MD V25.2 VASECTOMY 06/12/2012 MIGUEL ANGEL PANDYA, YOLANDA R V25.2 VASECTOMY 06/12/2012 YOANDY GUTIERREZ, JERRY Aldana V25.2 VASECTOMY 06/12/2012 MIGUEL ANGEL PANDYA, YOLANDA R V25.2 VASECTOMY 06/12/2012 KEVIN GUTIERREZ, BASCYNDY V25.2 VASECTOMY 06/12/2012 TRAVIS MANCERA DO V25.2 VASECTOMY 07/28/2012 272.0 HYPERCHOLESTEROLEMIA 07/28/2012 272.0 HYPERCHOLESTEROLEMIA 07/28/2012 272.0 HYPERCHOLESTEROLEMIA 07/28/2012 272.0 HYPERCHOLESTEROLEMIA 07/28/2012 272.0 HYPERCHOLESTEROLEMIA 07/28/2012 272.0 HYPERCHOLESTEROLEMIA 07/28/2012 272.0 HYPERCHOLESTEROLEMIA 07/28/2012 IBRAHIMA WATTS DO 272.0 HYPERCHOLESTEROLEMIA 07/28/2012 JERRY PITT MD 272.0 HYPERCHOLESTEROLEMIA 07/28/2012 MANCERA DO, TRAVIS K 272.0 HYPERCHOLESTEROLEMIA 07/28/2012 MANCERA DO, TRAVIS K 272.0 HYPERCHOLESTEROLEMIA 07/28/2012 MANCERA DO, TRAVIS K 272.0 HYPERCHOLESTEROLEMIA 07/28/2012 MANCERA DO, TRAVIS K 272.0 HYPERCHOLESTEROLEMIA 07/28/2012 YONI SECURITY ADVISORSANTY Aldana 272.0 HYPERCHOLESTEROLEMIA 07/28/2012 CALDERON MCGILL, TRAVIS K 272.0 HYPERCHOLESTEROLEMIA 07/28/2012 YOANDY GUTIERREZ, JERRY N 272.0 HYPERCHOLESTEROLEMIA 07/28/2012 SANTY VALLEJO APRN 272.0 HYPERCHOLESTEROLEMIA 07/28/2012 YOANDY GUTIERREZ, JERRY N 272.0 HYPERCHOLESTEROLEMIA 07/28/2012 SANTY VALLEJO APRN D 272.0 HYPERCHOLESTEROLEMIA 07/28/2012 YOANDY GUTIERREZ, JERRY N 272.0 HYPERCHOLESTEROLEMIA 07/28/2012 YOANDY GUTIERREZ, JERRY N 272.0 HYPERCHOLESTEROLEMIA 07/28/2012 BEKAH SECURITY ADVISORDIYA Aldana 272.0 HYPERCHOLESTEROLEMIA 07/28/2012 JERRY PITT MD N 272.0 HYPERCHOLESTEROLEMIA 07/28/2012 DIYA GODFREY APRN 272.0 HYPERCHOLESTEROLEMIA 07/28/2012 CALDERON MCGILL, TRAVIS K 272.0 HYPERCHOLESTEROLEMIA 07/28/2012 ERIN DIEGO, BELINDA E 272.0 HYPERCHOLESTEROLEMIA 07/28/2012 ERIN DIEGO, BELINDA E 272.0 HYPERCHOLESTEROLEMIA 07/28/2012 ERIN DIEGO, BELINDA E 272.0 HYPERCHOLESTEROLEMIA 07/28/2012 YOANDY GUTIERREZ, JERRY N 272.0 HYPERCHOLESTEROLEMIA 07/28/2012 MIGUEL ANGEL PANDYA YOLANDA R 272.0 HYPERCHOLESTEROLEMIA 07/28/2012 JERRY PITT MD N 272.0 HYPERCHOLESTEROLEMIA 07/28/2012 MIGUEL ANGEL PANDYA YOLANDA R 272.0 HYPERCHOLESTEROLEMIA 07/28/2012 LELAND BROWN MD 272.0 HYPERCHOLESTEROLEMIA 07/28/2012 CALDERON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
--- NOTE | 2017-02-22 10:51 | Diagnostic Imaging Report ---
PROCEDURE: US right lower extremity venous. TECHNIQUE: Multiple real-time grayscale images were obtained over the right lower extremity in various projections. Additional duplex Doppler and color Doppler images were also obtained. INDICATION: Pain. History of DVT. Comparison: None Findings: The right common femoral vein, superficial femoral vein and popliteal veins appear patent and compressible. No visible thrombus is seen. There is normal spontaneity and waveform with augmentation. IMPRESSION: No evidence of deep venous thrombosis in the right lower extremity. Dictated by: Dictated on workstation # [id number]
--- NOTE | 2017-02-22 12:54 | Diagnostic Imaging Report ---
INDICATION: Right leg pain. FINDINGS: There appears to be complete occlusion of the popliteal artery. There are triphasic waveforms in the common femoral artery and proximal right superficial femoral artery. There is reconstitution of both the dorsalis pedis and posterior tibial artery via collaterals. 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 Dictated by: Dictated on workstation # [id number]
[2017-02-22] MEDS ORDERED: ENOXAPARIN 60 MG/0.6 ML (LOVENOX) SYR SC ONE (13:30)
--- NOTE | 2017-02-22 13:50 | ED Lower Extremity ---
General Chief Complaint: Lower Extremity Stated Complaint: RIGHT LEG PAIN-HX OF DVT Nursing Triage Note: AMB TO ROOM C/O PAIN IN R LEG. Nursing Sepsis Screen: No Definite Risk Source: patient, old records Exam Limitations: no limitations History of Present Illness Time seen by provider: 12:05 Initial Comments Patient presents with pain in the right calf persistently since February 18. He had intermittent claudication with activity prior to that. He has history of arterial stent in the right lower extremity for peripheral vascular disease. That stent was occluded in 2016 an open by angioplasty by Dr. Rebolledo. On exam patient was found to have absent right pedal pulse but strong left pedal pulse. Limb does not appear ischemic although both lower extremities are generally cool and pale. Allergies and Home Medications Allergies Coded Allergies: No Known Drug Allergies (Unverified , 02/22/17) Home Medications Acetaminophen 500 Mg Tablet, 1,000 MG PO Q8H PRN for PAIN-MILD, (Reported) TAKES 2 (500 MG) TABLETS Amlodipine Besylate 5 Mg Tablet, 5 MG PO DAILY, (Reported) LAST FILLED 11/05/16 #90 Aspirin 81 Mg Tablet.dr, 81 MG PO DAILY, (Reported) Atorvastatin Calcium 40 Mg Tablet, 40 MG PO HS, (Reported) Cilostazol 50 Mg Tablet, 50 MG PO BID, (Reported) Clopidogrel Bisulfate 75 Mg Tablet, 75 MG PO DAILY, (Reported) Diphenhydramine HCl 25 Mg Capsule, 25 MG PO HS PRN for SLEEP, (Reported) Hydrochlorothiazide 12.5 Mg Capsule, 12.5 MG PO DAILY, (Reported) Hydroxyzine HCl 10 Mg Tablet, 10 MG PO TID PRN for ANXIETY, (Reported) Lisinopril 20 Mg Tablet, 20 MG PO DAILY, (Reported) Lurasidone HCl 80 Mg Tablet, 80 MG PO DAILY, (Reported) Constitutional: no symptoms reported EENTM: no symptoms reported Respiratory: no symptoms reported Cardiovascular: see HPI Gastrointestinal: no symptoms reported Genitourinary: no symptoms reported Musculoskeletal: see HPI Skin: no symptoms reported Psychiatric/Neurological: No Symptoms Reported Past Qyfgexk-Fcokws-[id number] Hx Patient Social History Alcohol Use: Denies Use Recreational Drug Use: No Smoking Status: Current Everyday Smoker Recent Foreign Travel: No Contact w/Someone Who Travel: No Recent Infectious Disease Expo: No Recent Hopitalizations: No Immunizations Up To Date Date of Pneumonia Vaccine: Jan 22, 2012 Date of Influenza Vaccine: Dec 22, 2016 Seasonal Allergies Seasonal Allergies: No Surgeries History of Surgeries: Yes (vasectomy, STENT IN RT LEG) Surgeries: Vascular Surgery, Vasectomy Respiratory History of Respiratory Disorde: No Cardiovascular History of Cardiac Disorders: Yes (STATES "HEART ATTACK IN THE PAST") Cardiac Disorders: Coronary Artery Disease, Heart Attack, High Cholesterol, Hypertension, Peripheral Vascular Neurological History of Neurological Disord: Yes (STATES HAS HAD 2 STROKES) Genitourinary History of Genitourinary Disor: No Gastrointestinal History of Gastrointestinal Di: No Musculoskeletal History of Musculoskeletal Dis: No Endocrine History of Endocrine Disorders: No HEENT History of HEENT Disorders: Yes Hearing Impairment: Hard of Hearing Cancer History of Cancer: No Psychosocial History of Psychiatric Problem: Yes (alcohol abuse) Behavioral Health Disorders: Violent Behavior Blood Transfusions History of Blood Disorders: No Family Medical History Significant Family History: No Pertinent Family Hx Physical Exam Vital Signs Vital Sign - Last 12Hours 02/22/17 09:44 Temp 98.7 Pulse 102 Resp 18 B/P (MAP) 133/107 (116) Pulse Ox 95 O2 Delivery Room Air Capillary Refill : Less Than 3 Seconds General Appearance: WD/WN, no apparent distress HEENT: PERRL/EOMI, normal ENT inspection, pharynx normal Cardiovascular: regular rate, rhythm, no edema, no murmur Respiratory: lungs clear, normal breath sounds, no respiratory distress, no accessory muscle use Gastrointestinal: normal bowel sounds, non tender, soft Legs: left leg non-tender, right leg soft tissue tenderness, bilateral leg other (Both feet are grossly pale and cool. Capillary refill is equal bilaterally at less than 6 seconds. There is a strong left pedal pulse but pedal pulses absent on the right.) Progress/Results/Core Measures Results/Orders My Orders Orders - BHASKAR ZELAYA MD Us Venous Lower Ext Rt (02/22/17 10:03) Us Right Low Ext [id number] (02/22/17 11:53) Enoxaparin Injection (Lovenox Injection) (02/22/17 13:30) Saline Lock/Iv-Start (02/22/17 13:27) Basic Metabolic Panel (02/22/17 13:27) Cbc With Automated Diff (02/22/17 13:27) Protime With Inr (02/22/17 13:27) Partial Thromboplastin Time (02/22/17 13:27) Medications Given in ED Current Medications Medications Dose Ordered Sig/Javier Route Start Time Stop Time Status Last Admin Dose Admin Enoxaparin Sodium 60 mg ONCE ONCE SC 02/22/17 13:30 02/22/17 13:31 DC 02/22/17 13:43 60 MG Vital Signs/I&O Vital Sign - Last 12Hours 02/22/17 09:44 Temp 98.7 Pulse 102 Resp 18 B/P (MAP) 133/107 (116) Pulse Ox 95 O2 Delivery Room Air Blood Pressure Mean: 116 Progress Note : Progress Note Venous ultrasound of the right lower extremity was negative for DVT. However, there was no palpable pedal pulse. Venous ultrasound was therefore followed by arterial ultrasound. There was a total occlusion of the right popliteal graft. Collateral flow was present. Limb was not ischemic. Capillary refill was less than 6 seconds and is similar to the left. Case was reviewed with Dr. Rebolledo who believes he can treat the occlusion tomorrow. He advised admission for observation with Lovenox treatment. He suggested 1 mg/kg now and again in 12 hours. Patient is to be nothing by mouth after midnight. He recommended continuing Plavix and aspirin. Patient was admitted to Dr. Pitt who is his primary care provider. She will assist with med management. Diagnostic Imaging Diagonstic Imaging: Ultrasound Plain Films/CT/US/NM/MRI: leg Comments Right lower extremity venous ultrasound report reviewed. See report below: NAME: ELOY CARROLL [facility] REC#: [id number] PT STATUS: REG ER : 1960 PHYSICIAN: BHASKAR ZELAYA MD ADMIT DATE: 02/22/17/ER Signed Date of Exam: 02/22/17 US VENOUS LOWER EXT RT PROCEDURE: US right lower extremity venous. TECHNIQUE: Multiple real-time grayscale images were obtained over the right lower extremity in various projections. Additional duplex Doppler and color Doppler images were also obtained. INDICATION: Pain. History of DVT. Comparison: None Findings: The right common femoral vein, superficial femoral vein and popliteal veins appear patent and compressible. No visible thrombus is seen. There is normal spontaneity and waveform with augmentation. IMPRESSION: No evidence of deep venous thrombosis in the right lower extremity. Dictated by: Dictated on workstation # [id number] Dict: 02/22/17 1044 Trans: 02/22/17 1051 Interpreted by: ÁLVARO REEVES DO Electronically signed by: ÁLVARO REEVES DO 02/22/17 1051 Diagonstic Imaging: Ultrasound Plain Films/CT/US/NM/MRI: leg Comments Right lower extremity arterial ultrasound discussed with the medical records technician and report reviewed. See report below: NAME: ELOY CARROLL [facility] REC#: [id number] PT STATUS: REG ER : 1960 PHYSICIAN: BHASKAR ZELAYA MD ADMIT DATE: 02/22/17/ER Signed Date of Exam: 02/22/17 US RIGHT LOW EXT [id number] INDICATION: Right leg pain. FINDINGS: There appears to be complete occlusion of the popliteal artery. There are triphasic waveforms in the common femoral artery and proximal right superficial femoral artery. There is reconstitution of both the dorsalis pedis and posterior tibial artery via collaterals. 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 Dictated by: Dictated on workstation # [id number] Dict: 02/22/17 1249 Trans: 02/22/17 1318 Interpreted by: BETO ALTAMIRANO MD Electronically signed by: BETO ALTAMIRANO MD 02/22/17 1318 Departure Communication (Admissions) Time/Spoke to Admitting Phy: 13:[address] Pitt Time/Spoke to Consulting Phy: 13:30 Communication/Consulting Dr. Rebolledo Impression Impression: Primary Impression: Popliteal artery occlusion, right Additional Impressions: Peripheral vascular disease Right leg pain Disposition: ADMITTED INPATIENT Condition: Improved Admissions Decision to Admit Reason: Admit from ER (General) Decision to Admit/Date: Feb 22, 2017 Time/Decision to Admit Time: 13:30 Departure-Patient Inst. Referrals: JERRY PITT MD (PCP/Family) Primary Care Physician Copy Copies To 1: LELAND REBOLLEDO MD Copies To 2: JERRY PITT MD, JOSHUA T MD Feb 22, 2017 13:49
[2017-02-22 14:01] LABS: BASOPHILS % (AUTO) 0 % (0-10); EOSINOPHILS # (AUTO) 0.2 10^3/uL (0.0-0.3); EOSINOPHILS % (AUTO) 2 % (0-10); HEMATOCRIT 52 % (40-54); HEMOGLOBIN 17.9 G/DL (13.3-17.7); LYMPHOCYTES # (AUTO) 1.8 X 10^3 (1.0-4.0); LYMPHOCYTES % (AUTO) 20 % (12-44); MEAN CORPUSCULAR HEMOGLOBIN 31 PG (25-34); MEAN CORPUSCULAR HGB CONC 35 G/DL (32-36); MEAN CORPUSCULAR VOLUME 90 FL (80-99); MEAN PLATELET VOLUME 9.7 FL (7.4-10.4); MONOCYTES # (AUTO) 0.9 X 10^3 (0.0-1.0); MONOCYTES % (AUTO) 10 % (0-12); NEUTROPHILS # (AUTO) 6.1 X 10^3 (1.8-7.8); NEUTROPHILS % (AUTO) 68 % (42-75); PLATELET COUNT 272 10^3/uL (130-400); RED BLOOD COUNT 5.76 10^6/uL (4.35-5.85); RED CELL DISTRIBUTION WIDTH 13.9 % (10.0-14.5)
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
[2017-02-22 14:15] LABS: PROTHROMBIN TIME PATIENT 13.3 SEC (12.2-14.7)
[2017-02-22 14:16] LABS: BUN/CREATININE RATIO 14; CALCIUM 9.5 MG/DL (8.5-10.1); CARBON DIOXIDE 25 MMOL/L (21-32); CHLORIDE 102 MMOL/L (98-107); CREATININE SERUM 0.84 MG/DL (0.60-1.30); GFR ESTIMATED > 60; GLUCOSE 98 MG/DL (70-105); POTASSIUM 3.9 MMOL/L (3.6-5.0); SODIUM 138 MMOL/L (135-145)
[2017-02-22] MEDS ORDERED: LISI-552 PO (14:27)
[2017-02-22] MEDS ORDERED: HYDR12.5 PO (14:27)
[2017-02-22] MEDS ORDERED: DIPH25CA45 PO (14:27)
[2017-02-22] MEDS ORDERED: CILO50TA PO (14:27)
[2017-02-22] MEDS ORDERED: CLOP75TA28 PO (14:27)
[2017-02-22] MEDS ORDERED: CATHETER FLUSH 10 ML SYR IV PRN (14:45)
[2017-02-22 14:47] VITALS: BP 124/86
[2017-02-22] MEDS ORDERED: ASPI-983 PO (14:56)
[2017-02-22] MEDS ORDERED: ACET-93 PO (14:56)
[2017-02-22] MEDS ORDERED: AMLO5TAB2 PO (14:56)
[2017-02-22] MEDS ORDERED: HYDR-3584 PO (14:56)
[2017-02-22] MEDS ORDERED: ACETAMINOPHEN 325 MG TABLET/CAPLET (TYLENOL) PO PRN (15:00)
--- NOTE | 2017-02-22 15:06 | Consultation-Cardiology ---
HPI-Cardiology Cardiology Consultation: Date of Consultation 02/22/17 Time Seen by Provider: 14:50 Date of Admission Attending Physician Marielena Vasquez MD Admitting Physician Marielena Vasquez MD Consulting Physician DESTINY SCHULTZ MD, MA, FACP, FACC, FSCAI, CCDS HPI: Chief Complaint: R leg pain for 1 week 57 yo man with R leg pain with walking short distances and sometimes a rest for a little over a week. Waited for Holidays to be over before he came to the ER today. Denies any ulceration or skin breakdown. Denies cp or palp or syncope. Has chronic exertional shortness of breath. Denies leg swelling Review of Systems-Cardiology Review of Systems Constitutional: malaise, tiredness, No weight loss, No weight gain Eyes: No vision change Ears/Nose/Throat: No ear discharge, No nasal drainage, No recent hearing loss Respiratory: As described under HPI Cardiovascular: As described under HPI Gastrointestinal: No constipation, No diarrhea, No nausea, No vomiting Genitourinary: No dysuria, No hematuria, No urine frequency changes Musculoskeletal: As describe under HPI Skin: No rash, No ulcerations Psychiatric/Neurological: No seizure, No focal weakness, No syncope Hematologic: No bleeding abnormalities HTC-Fdhzhd-Jyaemj Hx Patient Social History Alcohol Use: Denies Use Recreational Drug Use: No Smoking Status: Current Everyday Smoker Recent Foreign Travel: No Recent Infectious Disease Expo: No Hospitalization with Isolation: Denies Immunizations Up To Date Date of Pneumonia Vaccine: Jan 22, 2012 Date of Influenza Vaccine: Dec 22, 2016 Past Medical History PMH As described under Assessment. Family Medical History Family Medical History: Father had [place] in his 60s, according to the patient Allergies and Home Medications Allergies Coded Allergies: No Known Drug Allergies (Unverified , 06/25/15) Home Medications Acetaminophen 500 Mg Tablet, 1,000 MG PO Q8H PRN for PAIN-MILD, (Reported) TAKES 2 (500 MG) TABLETS Amlodipine Besylate 5 Mg Tablet, 5 MG PO DAILY, (Reported) LAST FILLED 11/05/16 #90 Aspirin 81 Mg Tablet.dr, 81 MG PO DAILY, (Reported) Atorvastatin Calcium 40 Mg Tablet, 40 MG PO HS, (Reported) Cilostazol 50 Mg Tablet, 50 MG PO BID, (Reported) Clopidogrel Bisulfate 75 Mg Tablet, 75 MG PO DAILY, (Reported) Diphenhydramine HCl 25 Mg Capsule, 25 MG PO HS PRN for SLEEP, (Reported) Hydrochlorothiazide 12.5 Mg Capsule, 12.5 MG PO DAILY, (Reported) Hydroxyzine HCl 10 Mg Tablet, 10 MG PO TID PRN for ANXIETY, (Reported) Lisinopril 20 Mg Tablet, 20 MG PO DAILY, (Reported) Lurasidone HCl 80 Mg Tablet, 80 MG PO DAILY, (Reported) Physical Exam-Cardiology Physical Exam Vital Signs/I&O Vital Sign - Last 12Hours 02/22/17 02/22/17 02/22/17 02/22/17 09:44 14:11 14:47 15:16 Temp 98.7 98.2 Pulse 102 85 84 76 Resp 18 18 20 B/P (MAP) 133/107 (116) 124/86 (99) Pulse Ox 95 96 94 O2 Delivery Room Air Room Air Room Air Capillary Refill : Less Than 3 Seconds Constitutional: AAO x 3, well-developed, other HEENT: PERRL, EOMI, hearing is well preserved, No xanthelasmas are seen Neck: carotid pulses are 2 + bilaterally, with good upstrokes Respiratory: No accessory muscle use, lungs clear to percussion, lungs clear to auscultation Cardiovascular: irregularly irregular, S1 and S2, systolic murmur (faint RINKU at card base) Gastrointestinal: No tender, soft, No guarding, No rebound, audible bowel sounds Extremities: No clubbing, No cyanosis, No significant edema Neurologic/Psychiatric: oriented x 3, grossly intact, power is 5/5 both on sides Skin: normal color, warm/dry, No mottled, No pallor, No rash on exposed areas, No ulcerations on exposed areas Data Review Labs Laboratory Tests 02/22/17 13:50: White Blood Count 9.0, Red Blood Count 5.76, Hemoglobin 17.9H, Hematocrit 52, Mean Corpuscular Volume 90, Mean Corpuscular Hemoglobin 31, Mean Corpuscular Hemoglobin Concent 35, Red Cell Distribution Width 13.9, Platelet Count 272, Mean Platelet Volume 9.7, Neutrophils (%) (Auto) 68, Lymphocytes (%) (Auto) 20, Monocytes (%) (Auto) 10, Eosinophils (%) (Auto) 2, Basophils (%) (Auto) 0, Neutrophils # (Auto) 6.1, Lymphocytes # (Auto) 1.8, Monocytes # (Auto) 0.9, Eosinophils # (Auto) 0.2, Basophils # (Auto) 0.0, Prothrombin Time 13.3, INR Comment 1.0, Activated Partial Thromboplast Time 26, Sodium Level 138, Potassium Level 3.9, Chloride Level 102, Carbon Dioxide Level 25, Anion Gap 11, Blood Urea Nitrogen 12, Creatinine 0.84, Estimat Glomerular Filtration Rate > 60 , BUN/Creatinine Ratio 14, Glucose Level 98, Calcium Level 9.5 ECG Impression ECG Comment ECG on 02/22/17: NSR A/P-Cardiology Assessment/Admission Diagnosis R leg claudication due to complete occlusion of the R popliteal and reconstitution of both the dorsalis pedis and posterior tibial arteries via collaterals, on leg u/s of 02/22/17. Has h/o of R popliteal artery PCI by Dr Hagen in [address] Rebolledo in 2016 Chronic and continuing tobaccoism (1ppd) Most recent stress test September 2016 revealed no ischemia or infarct Hypertension Nonobstructive carotid artery stenosis per carotid duplex done March 2016. Hyperlipidemia, treated with Lipitor History of depression, controlled Discussion and Recomendations * Treat with antiplatelet therapy and enoxaparin * Plan peripheral angio and probable PCI tomorrow (Dr Rebolledo) * Advised to quit smoking immediately and completely DESTINY SCHULTZ MD FACP FAC CCDS Feb 22, 2017 15:06
[2017-02-22] MEDS: oxyCODONE/APAP 7.5-325 MG (PERCOCET 7.5) TABLET PO PRN (15:28)
[2017-02-22 16:00] VITALS: BP 135/90
[2017-02-22] MEDS ORDERED: ACETAMINOPHEN 500 MG TAB (TYLENOL) PO PRN (16:15)
[2017-02-22] MEDS ORDERED: diphenhydrAMINE 25 MG TAB (BENADRYL) PO PRN (16:30)
[2017-02-22 20:00] VITALS: BP 109/67
[2017-02-22] MEDS ORDERED: CILOSTAZOL 50 MG PO SCH (21:00)
[2017-02-22] MEDS: CATHETER FLUSH 10 ML SYR IV SCH (21:08)
[2017-02-22] MEDS: ATORVASTATIN 40 MG (LIPITOR) TABLET PO SCH (21:08)
[2017-02-23] VITALS (25 sets, daily range): BP systolic 102–130; BP diastolic 54–92
[2017-02-23] MEDS ORDERED: ENOXAPARIN 60 MG/0.6 ML (LOVENOX) SYR SC NR (01:00)
[2017-02-23] MEDS: CATHETER FLUSH 10 ML SYR IV SCH ×3 (05:59→21:20)
[2017-02-23] MEDS ORDERED: LIDOCAINE 1% INJ 50 ML (XYLOCAINE) VIAL ONE (06:49)
[2017-02-23] MEDS ORDERED: NS IV 1000 ML 1,000 ML ONE (06:49)
[2017-02-23] MEDS ORDERED: HEParin (CATH LAB) 2,000 ML IV ONE (06:49)
[2017-02-23] MEDS: ASPIRIN E.C. 81 MG (ECOTRIN) TAB PO SCH (08:01)
[2017-02-23] MEDS: CLOPIDOGREL 75 MG (PLAVIX) TABLET PO SCH (08:01)
[2017-02-23] MEDS: lisINopril 20 MG (ZESTRIL) TAB PO SCH (08:01)
[2017-02-23] MEDS: amLODIPine 5 MG (NORVASC) TAB PO SCH (08:01)
[2017-02-23] MEDS: HYDROCHLOROTHIAZIDE 12.5 MG (HCTZ) CAP PO SCH (08:01)
[2017-02-23] MEDS ORDERED: NS IV 1000 ML 1,000 ML IV STA (08:18)
[2017-02-23] MEDS ORDERED: NON-FORMULARY MEDICATION 1 EA EA (Lurasidone HCl (Latuda) 80 MG) PO SCH (09:00)
[2017-02-23] MEDS ORDERED: CLOPIDOGREL 75 MG (PLAVIX) TABLET PO SCH (09:00)
[2017-02-23] MEDS ORDERED: ASPIRIN 325 MG (5 GR) TABLET PO SCH (09:00)
[2017-02-23] MEDS ORDERED: MIDAZOLAM 5 MG/5 ML (VERSED) VIAL ONE ×2 (09:06→11:45)
[2017-02-23] MEDS ORDERED: fentaNYL INJECTION 100 MCG/2 ML AMP ONE (09:06)
[2017-02-23] MEDS ORDERED: HEParin 1000 UNIT/ML (10ML VIAL) FOR BOLUS ONE ×2 (10:02→10:28)
[2017-02-23] MEDS ORDERED: NITROGLYCERIN DRIP 25 MG/D5W 250 ML IV ONE (10:28)
[2017-02-23] MEDS ORDERED: HEParin DRIP 25000 UNIT/500ML 500 ML IV SCH (11:03)
[2017-02-23] MEDS ORDERED: HEParin (CATH LAB) 1,000 ML IV ONE (11:03)
[2017-02-23] MEDS ORDERED: TENECTEPLASE 5 MG in NS IV 500 ML 500 ML IV SCH ×4 (11:15)
[2017-02-23] MEDS ORDERED: TENECTEPLASE 5 MG in SYRINGE-IVPB 0 SYRINGE, WATER (STERILE) FOR INJECTION 4 ML IV ONE ×3 (11:15)
[2017-02-23] MEDS ORDERED: TENECTEPLASE IV ONE (11:15)
[2017-02-23] MEDS ORDERED: CLOPIDOGREL 300 MG (PLAVIX) TABLET PO ONE (12:31)
[2017-02-23] MEDS ORDERED: ASPIRIN 81 MG CHEW (CHILDREN'S ASA) ONE (12:31)
[2017-02-23] MEDS ORDERED: PATIENT MAY USE OWN MEDS, ALL PO SCH (12:45)
--- NOTE | 2017-02-23 12:50 | Peripheral Report ---
Peripheral Report Physician (s)/Issuing Operator (s) Physician LELAND BROWN MD Pre-Procedure Diagnosis Pre-Procedure Diagnosis: Peripheral artery disease Post-Procedure Note Procedure Start Date: Feb 23, 2017 Name of Procedure: Abdominal aortogram Bilateral lower Extremity Runoff Additional imaging with selective injection in the anterior tibial artery Third order TNK infusion Balloon angioplasty and stent to the SFA Balloon angioplasty, DCB to the anterior tibial artery Findings/Procedure Note PROCEDURE NOTE: After explaining the procedure to the patient, all pros and cons were explained, all questions were answered. The patient signed the consent and then she was placed on the cardiac catheterization laboratory. The patient was placed on the cardiac catheterization laboratory. Groin was prepped SL fashion local anesthesia was used. Sheath placed in the left femoral artery. Pigtail catheter advanced to the abdominal aorta and angiogram was done Crossover with the stork wire then exchanged the catheter into a straight catheter placed in the right common femoral and angiogram with runoff was done Patient was given 8000 units of heparin, sheath was exchanged into a long 7 Hungarian sheath Total occlusion of the SFA at the midportion with occlusion of the distal stent , successful wiring with the stork then multiple balloon inflation with 5.0100 with no establishment of good flow Another attempt with 6.0200 balloon, multiple inflation, some improvement of the flow still very sluggish. The anterior tibial artery appeared to be occluded. I used 400 time 100 balloon in the proximal anterior tibial artery and is still popliteal artery and within the stent multiple inflations showed some improvement, no significant benefit. I felt that there is a heavy clot burden, selective injection with a straight catheter in the SFA with heparin and nitroglycerin did not show any improvement at that point I decided to proceed with TNK 5 mg injected in the mid SFA, waited for 10 minutes, angiogram showed slight improvement, proceeded with balloon again and then I deployed SUPERA 5.5 x 150 to the mid SFA with postdilatation with 6.0 balloon showed excellent result, still have sluggish flow. I used Viper wire advanced to the arch if the right foot through the anterior tibial artery, did 4.0x100 LUTONIX drug-coated balloon in the proximal anterior tibial balloon then placed a mini catheter and exchanged the wire into BMW wire then advanced 3.0100 balloon did multiple inflation in the proximal, mid and distal anterior tibial, angiogram showed sluggish flow in the anterior tibial artery, better flow in the posterior tibial and peroneal. At that point I decided to continue with maximizing medical therapy. Sheath was exchanged into 7 Hungarian short sheath, pigtail catheter advanced the abdominal aorta and abdominal aortogram was done showing no complication, runoff to the left lower extremity was done through the sheath which showed slow flow down to the trifurcation FINDINGS: Abdominal aortogram: showed mild disease nonobstructive disease, no dissection or aneurysm, bifurcation was normal Left lower extremity: done through the sheath showing slow flow down to the trifurcation. Right lower extremity: Total occlusion at the midportion with occlusion of an old Supera Stent, complex intervention with multiple balloon inflation, local heparin injection and nitroglycerin then TNK injection due to the heavy plaque burden, repeat angioplasty then deployment of SUPERA 5.5150 overlap in the old stent extending to the mid SFA post dilated with 6.0 balloon with excellent results. Right anterior tibial artery: Totally occluded with sluggish flow, selective angiogram, balloon angioplasty using 3.0100 balloon in the mid and distal and 4.0100 in the proximal portion with improvement. Heavy clot burden. We'll continue maximizing medical therapy. CONCLUSIONS: 1. Total occlusion of the right mid and distal SFA within the old stent and proximal to it, complex intervention with injection of heparin, nitroglycerin and TNK then deployment of SUPERA 5.5150 overlap in with a old stent with excellent results in the SFA. Total occlusion of the anterior tibial artery, heavy clot burden, successful balloon angioplasty 2. Slow flow in the left lower extremity down to the trifurcation with small vessel disease 3. Atherosclerotic disease in the abdominal aorta DISCUSSION AND RECOMMENDATIONS: I will continue maximizing medical therapy, educated on smoking cessation, planning to bring the patient back in the near future to reevaluate the flow in the right lower extremities Anesthesia Type: Conscious Sedation Estimated blood loss (mL): 25 ml Contrast Amount: 210 ml Total Radiation Dose: 307 mGy Post-Procedure Diagnosis Post-operative diagnosis: Peripheral arterial disease Subacute ischemic foot Hypertension Hyperlipidemia Tobaccoism LELAND BROWN MD Feb 23, 2017 12:50 pm
[2017-02-23] MEDS: NS IV 1000 ML 1,000 ML IV SCH ×3 (14:31→22:35)
[2017-02-23] MEDS: OMEGA 3 (FISH OIL) 1000 MG CAP PO SCH (17:34)
[2017-02-23] MEDS: ATORVASTATIN 40 MG (LIPITOR) TABLET PO SCH (21:20)
--- NOTE | 2017-02-23 21:42 | History & Physicial ([facility]) ---
HPI History of Present Illness: 57 yo male with history of PAD and stenting, had onset of right leg pain from knee to foot circumferentially for about a week, which became severe on Tuesday. He decided he should come in after the holiday because he figured it was blocked. He underwent procedure this am and is feeling much better already. He denies any concerns. Source: patient Exam Limitations: no limitations Date seen by provider: Feb 23, 2017 Time Seen by Provider: 16:50 Attending Physician Jerry Vasquez MD PCP Jerry Vasquez MD Consult Date of Admission Feb 22, 2017 at 1:42 pm Home Medications Home Medications Reviewed patient Home Medication Reconciliation Form Allergies Coded Allergies: No Known Drug Allergies (Unverified , 02/22/17) MFT-Tksnio-Mjzhph Hx Patient Social History Alcohol Use: Denies Use Recreational Drug Use: No Smoking Status: Current Everyday Smoker Type Used: Cigarettes Recent Foreign Travel: No Contact w/other who traveled: No Recent Hopitalizations: No Recent Infectious Disease Expo: No Physical Abuse Screen: No Sexual Abuse: No Immunizations Up To Date Date of Pneumonia Vaccine: Jan 22, 2012 Date of Influenza Vaccine: Nov 22, 2016 Past Medical History PMHx: PAD HTN HLD Schizoaffective disorder SurgHx: Appendectomy Vasectomy Right Popliteal stent Bipolar disorder Family Medical History Family History: Patient reports no known family medical history. Review of Systems ([facility]) Constitutional: No fever EENTM: No nose congestion, No throat pain Respiratory: No cough, No short of breath Cardiovascular: No chest pain Gastrointestinal: No abdominal pain, No constipation, No diarrhea, No nausea, No vomiting Genitourinary: no symptoms reported Musculoskeletal: see HPI Skin: no symptoms reported Psychiatric/Neurological: No Symptoms Reported Reviewed Test Results Reviewed Test Results Lab Laboratory Tests Test 02/22/17 13:50 Range/Units White Blood Count 9.0 4.3-11.0 10^3/uL Red Blood Count 5.76 4.35-5.85 10^6/uL Hemoglobin 17.9 H 13.3-17.7 G/DL Hematocrit 52 40-54 % Mean Corpuscular Volume 90 80-99 FL Mean Corpuscular Hemoglobin 31 25-34 PG Mean Corpuscular Hemoglobin Concent 35 32-36 G/DL Red Cell Distribution Width 13.9 10.0-14.5 % Platelet Count 272 130-400 10^3/uL Mean Platelet Volume 9.7 7.4-10.4 FL Neutrophils (%) (Auto) 68 42-75 % Lymphocytes (%) (Auto) 20 12-44 % Monocytes (%) (Auto) 10 0-12 % Eosinophils (%) (Auto) 2 0-10 % Basophils (%) (Auto) 0 0-10 % Neutrophils # (Auto) 6.1 1.8-7.8 X 10^3 Lymphocytes # (Auto) 1.8 1.0-4.0 X 10^3 Monocytes # (Auto) 0.9 0.0-1.0 X 10^3 Eosinophils # (Auto) 0.2 0.0-0.3 10^3/uL Basophils # (Auto) 0.0 0.0-0.1 10^3/uL Prothrombin Time 13.3 12.2-14.7 SEC INR Comment 1.0 0.8-1.4 Activated Partial Thromboplast Time 26 24-35 SEC Sodium Level 138 135-145 MMOL/L Potassium Level 3.9 3.6-5.0 MMOL/L Chloride Level 102 98-107 MMOL/L Carbon Dioxide Level 25 21-32 MMOL/L Anion Gap 11 5-14 MMOL/L Blood Urea Nitrogen 12 7-18 MG/DL Creatinine 0.84 0.60-1.30 MG/DL Estimat Glomerular Filtration Rate > 60 BUN/Creatinine Ratio 14 Glucose Level 98 70-105 MG/DL Calcium Level 9.5 8.5-10.1 MG/DL Physical Exam-([facility]) Physical Exam Vital Signs VS - Last 72 Hours, by Label 02/22/17 02/22/17 02/22/17 02/22/17 09:44 14:11 14:47 15:16 Temp 98.7 98.2 Pulse 102 85 84 76 Resp 18 18 20 B/P (MAP) 133/107 (116) 124/86 (99) Pulse Ox 95 96 94 O2 Delivery Room Air Room Air Room Air 02/22/17 02/22/17 02/22/17 02/22/17 16:00 16:10 19:00 20:00 Temp 98.3 98.2 Pulse 79 77 86 Resp 16 20 B/P (MAP) 135/90 (105) 109/67 (81) Pulse Ox 94 94 94 O2 Delivery Room Air Room Air Room Air 02/22/17 02/23/17 02/23/17 02/23/17 20:15 00:00 01:00 04:00 Temp 98.7 98.1 Pulse 68 66 63 Resp 16 16 B/P (MAP) 121/76 (91) 130/79 (96) Pulse Ox 94 93 O2 Delivery Room Air Room Air Room Air 02/23/17 02/23/17 02/23/17 02/23/17 07:00 08:12 08:29 13:15 Temp 97.3 98.0 Pulse 85 68 70 Resp 20 20 B/P (MAP) 123/75 (91) 102/78 (86) Pulse Ox 93 94 O2 Delivery Room Air Room Air Room Air 02/23/17 02/23/17 02/23/17 02/23/17 13:15 13:17 13:30 13:45 Pulse 81 75 70 Resp 21 18 B/P (MAP) 109/83 (92) 107/75 (86) Pulse Ox 93 93 O2 Delivery Room Air Room Air Room Air 02/23/17 02/23/17 02/23/17 02/23/17 14:00 14:15 14:30 14:45 Pulse 72 74 71 69 Resp 18 18 19 16 B/P (MAP) 111/81 (91) 114/83 (93) 118/85 (96) 119/81 (94) Pulse Ox 93 93 94 94 O2 Delivery Room Air Room Air Room Air Room Air 02/23/17 02/23/17 02/23/17 02/23/17 15:00 15:15 15:30 15:45 Pulse 80 74 78 88 Resp 18 18 16 19 B/P (MAP) 119/84 (96) 116/77 (90) 121/86 (98) 105/81 (89) Pulse Ox 94 93 94 95 O2 Delivery Room Air Room Air Room Air Room Air 02/23/17 02/23/17 02/23/17 02/23/17 16:00 16:15 16:30 16:30 Temp 98.9 Pulse 93 93 93 Resp 20 22 19 B/P (MAP) 114/61 (78) 102/70 (81) 105/65 (78) Pulse Ox 93 94 93 O2 Delivery Room Air Room Air Room Air 02/23/17 02/23/17 02/23/1718 16:45 17:00 17:15 17:30 Pulse 99 93 98 95 Resp 24 24 11 21 B/P (MAP) 117/54 (75) 111/67 (82) 106/74 (85) 104/72 (83) Pulse Ox 94 94 92 94 O2 Delivery Room Air Room Air Room Air Room Air 02/23/17 02/23/17 02/23/17 02/23/17 17:45 18:00 19:00 19:00 Pulse 94 86 86 87 Resp 13 20 14 B/P (MAP) 108/77 (87) 111/69 (83) 108/86 (93) Pulse Ox 94 94 96 O2 Delivery Room Air Room Air Room Air 02/23/17 02/23/17 20:00 21:00 Temp 98.4 Pulse 86 Resp 18 B/P (MAP) 122/92 (102) Pulse Ox 95 O2 Delivery Room Air Room Air Capillary Refill : Less Than 3 Seconds General Appearance: WD/WN, no apparent distress Respiratory: lungs clear, normal breath sounds Cardiovascular: regular rate, rhythm, no edema, no murmur Peripheral Pulses: 1+ Dorsalis Pedis (R), 2+ Left Dors-Pedis (L) Gastrointestinal: normal bowel sounds, non tender, soft Extremities: no pedal edema Neurologic/Psychiatric: alert, normal mood/affect Skin: normal color, warm/dry, other (small scab on right solo) Clinical Quality Measures DVT/VTE Risk/Contraindication: Risk Factor Score Per Nursin RFS Level Per Nursing on Admit: 4+=Very High Assessment/Plan Assessment/Plan Admission Dx Atherosclerotic occlusive disease with rest pain and in-stent stenosis HTN HLD Plan Atherosclerotic occlusive disease with rest pain and in-stent stenosis- management per Dr. Rebolledo, intervention done today with patient reporting essentially resolved pain, continue plavix and ASA HTN- resume home medications HLD- resume home medications DVT ppx- enoxaparin JERRY VASQUEZ MD Feb 23, 2017 9:42 pm
[2017-02-24] VITALS: BP 113/74
[2017-02-24] MEDS: oxyCODONE/APAP 7.5-325 MG (PERCOCET 7.5) TABLET PO PRN (00:11)
[2017-02-24 04:00] VITALS: BP 113/79
[2017-02-24 05:07] LABS: HEMOGLOBIN 16.5 G/DL (13.3-17.7); MEAN PLATELET VOLUME 9.8 FL (7.4-10.4); RED BLOOD COUNT 5.32 10^6/uL (4.35-5.85); RED CELL DISTRIBUTION WIDTH 13.7 % (10.0-14.5); WHITE BLOOD COUNT 7.1 10^3/uL (4.3-11.0)
[2017-02-24 05:49] LABS: BUN/CREATININE RATIO 18; CALCIUM 8.9 MG/DL (8.5-10.1); CARBON DIOXIDE 24 MMOL/L (21-32); CHLORIDE 101 MMOL/L (98-107); CHOLESTEROL 184 MG/DL (< 200); CREATININE SERUM 0.82 MG/DL (0.60-1.30); GFR ESTIMATED > 60; GLUCOSE 98 MG/DL (70-105); HDL CHOLESTEROL 33 MG/DL (40-60); POTASSIUM 4.1 MMOL/L (3.6-5.0); SODIUM 134 MMOL/L (135-145); TRIGLYCERIDES 137 MG/DL (<150); VLDL CHOLESTEROL 27 MG/DL (5-40)
[2017-02-24] MEDS: CATHETER FLUSH 10 ML SYR IV SCH (06:10)
[2017-02-24 07:00] VITALS: BP 115/79
--- NOTE | 2017-02-24 07:24 | Cardiac Procedure Note-CS/ASA ---
Pre-Procedure Note Pre-Op Procedure Note H&P Reviewed The H&P was reviewed, patient examined and no changes noted. Date H&P Reviewed: Feb 23, 2017 Time H&P Reviewed: 08:00 Conscious Sedation Pre-Proced Time Reviewed: 08:00 ASA Class: 3 Airway Mallampati Classification: ([place] appropriate class) I. II. III, IV Lungs Heart ASA score ASA 1: a normal healthy patient ASA 2: a patient with a mild systemic disease (mid diabetes, controlled hypertension, obesity x ASA 3: a patient with a severe systemic disease that limits activity (angina , COPD, prior Myocardial infarction) ASA 4: a patient with an incapacitating disease that is a constant threat to life (CHF, renal failure) ASA 5: a moribund patient not expected to survive 24 hrs. (ruptured aneurysm) ASA 6: a declared brain patient whose organs are being harvested. For emergent operations, add the letter E after the classification Grade 3 Sedation Plan: Analgesia, Amnesia, Plan communicated to team members, Discussed options with patient/fam, Discussed risks with patient/fam Note The patient is an appropriate candidate to undergo the planned procedure, sedation, and anesthesia. The patient immediately re-assessed prior to indication. LELAND BROWN MD Feb 24, 2017 07:24
--- NOTE | 2017-02-24 07:32 | Cardiology Discharge Summary ---
Diagnosis/Chief Complaint Date of Admission Feb 22, 2017 at 13:42 Date of Discharge February 25, 2016 Admission Diagnosis subacute ischemic foot Peripheral arterial disease Hypertension Hyperlipidemia Tobaccoism Discharge Diagnosis subacute ischemic foot Peripheral arterial disease Hypertension Hyperlipidemia Tobaccoism Noncompliance with medication Chief Complaint/HPI Chief Complaint/HPI 57 years old gentleman with history of hypertension and peripheral arterial disease, started having pain in his leg last week which progressively got worse to the point that it became more significant about 5 days ago, waited until after the holidays and came to the emergency room for evaluation. He had severely diminished pulse. Started on heparin and had a complex intervention done yesterday, he is feeling much better today. I had a long discussion with the patient, discussed treatment option and educated about compliance with medication. Discharge Summary Hospital Course Hospital Course Subacute ischemic foot, complex intervention with TNK injection, stent as described below. 1. Total occlusion of the right mid and distal SFA within the old stent and proximal to it, complex intervention with injection of heparin, nitroglycerin and TNK then deployment of SUPERA 5.5150 overlap in with a old stent with excellent results in the SFA. Total occlusion of the anterior tibial artery, heavy clot burden, successful balloon angioplasty 2. Slow flow in the left lower extremity down to the trifurcation with small vessel disease 3. Atherosclerotic disease in the abdominal aorta Peripheral arterial disease, history of multiple intervention the past, underwent complex intervention yesterday, groin is healing well. Foot pulse has improved in the PT, evaluation of the DP showed diminished pulse due to the extensive clots. I had a long discussion with the patient regarding compliance with medications and smoking cessation. Hypertension, restart home medication Hyperlipidemia, poorly controlled, has been on Lipitor 40 mg daily, educated about compliance with medication and I added Fish oil tablets. Tobaccoism, educated on smoking cessation Labs Laboratory Tests 02/22/17 13:50: Hemoglobin 17.9H 02/24/17 04:40: Sodium Level 134L, LDL Cholesterol Direct 131H, HDL Cholesterol 33L Procedures None. Discharge Physical Examination Allergies: Coded Allergies: No Known Drug Allergies (Unverified , 02/22/17) Vitals & I&Os Vital Signs Date Time Temp Pulse Resp B/P (MAP) Pulse Ox O2 Delivery O2 Flow Rate FiO2 02/24/17 04:00 96.8 64 16 113/79 (90) 93 Room Air General Appearance: Alert, Oriented X3, Cooperative, No Acute Distress HEENT: Atraumatic, PERRLA Respiratory: Clear to Auscultation, Normal Air Movement Cardiovascular: Regular Rate, Normal S1, Normal S2, No Murmurs Abdominal: Normal Bowel Sounds, Soft, No Tenderness, No Hepatosplenomegaly, No Masses Extremities: No Clubbing, No Cyanosis, No Edema, Normal Pulses, No Tenderness/ Swelling Skin: No Rashes, No Breakdown, No Significant Lesion Neuro: Normal Gait, Normal Speech, Strength at 5/5 X4 Ext, Normal Tone, Sensation Intact, Cranial Nerves 3-12 NL, Reflexes 2+ Psych/Mental Status: Mental Status NL, Mood NL Discharge Home Medications Reviewed and agree with Discharge Medication list on patient's Discharge Instruction sheet Instructions to Patient/Family Please see electronic discharge instructions given to patient. Clinical Quality Measures DVT/VTE Risk/Contraindication: Risk Factor Score Per Nursin RFS Level Per Nursing on Admit: 4+=Very High LELAND BROWN MD Feb 24, 2017 07:32
[2017-02-24] MEDS ORDERED: OMG1KC PO (07:33)
--- NOTE | 2017-02-24 07:34 | Discharge Inst-Post CATH ---
Discharge Inst-CATH Post Cardiac Cath D/C Inst Follow Up/Plan Appointment with Dr. Rebolledo's office next week CARDIAC CATH DISCHARGE INSTRUCTIONS *Hold Metformin for 48 hours post heart cath. ACTIVITY * Go Home directly and rest. * Limit activity of the leg (or wrist if it was used) for 7 days including aerobics, swimming, jogging, bicycling, etc. * Restrict stair-climbing for 7 days if possible, if not, climb up with your non -cath leg, then bring together on the same step. * Avoid lifting, pushing, pulling or excessive movement of the affected extremity for 7 days. * Customary sexual activity may be resumed after 2 days-use caution not to use a position that strains or causes pain to the affected extremity. * No driving for 24 hours. * NO SMOKING. * Avoid straining for bowel movements for 7 days. * Gentle walking on level ground is allowed. * Returning to work will depend on the type of procedure and the results. Your doctor will discuss this with you. CALL YOUR DOCTOR FOR ANY OF THE FOLLOWING: *If bleeding from the puncture site occurs- Apply gentle pressure to site with clean cloth and call your doctor or EMS. * If a knot or lump forms under the skin, increases in size, or causes pain. * If bruising appears to be worsening or moving further down your leg instead of disappearing. * Temperature above 101 F. CARE OF YOUR GROIN INCISION; * Bruising or purple discoloration of the skin near the puncture site is common. * You may shower only, no bathtub bathing for 5 days. Be careful to avoid slipping as your leg may feel stiff. * If a closure device was used on your femoral artery, please see the attached guide regarding care of the device and your leg. * REMOVE the dressing from your groin the next day after your procedure in the shower. CARE OF YOUR WRIST INCISION; * Bruising or purple discoloration of the skin near the puncture site is common. * You may shower. * DO NOT submerge wrist. * Remove dressing in 24 hours. LELAND REBOLLEDO MD Feb 24, 2017 07:34
[2017-02-24] MEDS: OMEGA 3 (FISH OIL) 1000 MG CAP PO SCH (07:40)
[2017-02-24 07:45] VITALS: BP 115/79
[2017-02-24] MEDS: NS IV 1000 ML 1,000 ML IV SCH ×2 (07:50)
[2017-02-24] MEDS: lisINopril 20 MG (ZESTRIL) TAB PO SCH (08:38)
[2017-02-24] MEDS: amLODIPine 5 MG (NORVASC) TAB PO SCH (08:38)
[2017-02-24] MEDS: HYDROCHLOROTHIAZIDE 12.5 MG (HCTZ) CAP PO SCH (08:38)
[2017-02-24] MEDS: CLOPIDOGREL 75 MG (PLAVIX) TABLET PO SCH (08:38)
[2017-02-24] MEDS: ASPIRIN E.C. 81 MG (ECOTRIN) TAB PO SCH (08:38)
[2017-02-24] MEDS ORDERED: CLOPIDOGREL 75 MG (PLAVIX) TABLET PO SCH (09:00)
[2017-02-24] MEDS ORDERED: ASPIRIN E.C. 81 MG (ECOTRIN) TAB PO SCH (09:00)
[2017-02-24] MEDS ORDERED: NICO-588 TD (10:05)
[2017-02-24] MEDS ORDERED: NICO4GUM31 BC (10:05)
[2017-02-24 11:15] VITALS: BP 115/79
[2017-02-24] MEDS ORDERED: PATIENT MAY USE OWN MEDS, ALL PO SCH ×3 (11:30→11:45)
[2017-02-24] MEDS ORDERED: CILOSTAZOL 50 MG PO SCH ×3 (11:30→11:45)
[2017-02-24] MEDS ORDERED: NON-FORMULARY MEDICATION 1 EA EA (Lurasidone HCl (Latuda) 80 MG) PO SCH ×3 (11:30→11:45)
== END 2017-02-24 11:15 | disposition home or self-care (01) ==
LOC: EDUNIT# 09:35 → ER 09:37 → 4TH 13:42 → SDC 13:42 → 4TH 13:42 → UNDOADMOB 13:42 → ICU 02-23 13:17 → 4TH 02-23 13:17 → SDC 02-24 11:15 → UNDODISOB 02-24 11:15 → ICU 02-24 11:33
PROVIDERS: ATTEND Family Medicine
DX: I70.201 Unspecified atherosclerosis of native arteries of extremities, right leg (principal); I70.0 Atherosclerosis of aorta; I10 Essential (primary) hypertension; E78.5 Hyperlipidemia, unspecified; F17.210 Nicotine dependence, cigarettes, uncomplicated; Z91.14 Patient's other noncompliance with medication regimen; F25.0 Schizoaffective disorder, bipolar type; Z79.82 Long term (current) use of aspirin; Z79.899 Other long term (current) drug therapy; I65.23 Occlusion and stenosis of bilateral carotid arteries
CPT/HCPCS: 36415; 80048; 80061; 85025; 85027; 85610; 85730; 87081; 93005; 93926

== ENCOUNTER → 2017-12-13 | Outpatient (CLI) | payer MEDICAID ==
[~2017-12-13] MED LIST changes: +ACET-93 PO; +AMLO5TAB4 PO; +AMLO5TAB7 PO; +ASPI-983 PO; +CLOP75TA28 PO; +DIPH25CA45 PO; +HYDR-3584 PO; +HYDR12.5 PO; +LISI-552 PO; +NICO-588 TD; +NICO4GUM31 BC; +OMG1KC PO
--- NOTE | 2017-12-13 14:06 | Diagnostic Imaging Report ---
EXAM: CT CHEST SCREENING WO INDICATION: 40 pack year smoking history. Current smoker. COMPARISON: None. FINDINGS: Moderate diffuse bronchial wall thickening. Mild emphysematous changes in the lungs. No suspicious pulmonary nodule or mass. No focal endobronchial lesions. No pleural effusion or pneumothorax. Mild atherosclerotic calcifications including coronary and aortic. Normal heart size. No pericardial effusion. No mediastinal, hilar or axillary lymphadenopathy. No acute osseous findings. IMPRESSION: 1. Moderate diffuse bronchial wall thickening. Mild emphysema. 2. No actionable lung findings. Recommend continued annual screening with low dose chest CT in 12 months. 3. Mild coronary atherosclerotic calcifications. Lung rads category: One. Modifier: None. Please note that the low-dose technique of this chest CT is of non-diagnostic quality. This study is only intended for lung cancer screening of high risk patients. Dictated by: Dictated on workstation # [id number]
== END ==
LOC: RAD 10:54
PROVIDERS: ATTEND Family Medicine
DX: Z12.2 Encounter for screening for malignant neoplasm of respiratory organs (principal); J43.9 Emphysema, unspecified; I25.10 Atherosclerotic heart disease of native coronary artery without angina pectoris

== ENCOUNTER → 2018-03-01 | Outpatient (CLI) | payer MEDICAID ==
[2018-03-01 09:26] LABS: ALANINE AMINOTRANSFERASE 23 U/L (0-55); ALBUMIN 4.2 GM/DL (3.2-4.5); ALKALINE PHOSPHATASE 63 U/L (40-136); BILIRUBIN,TOTAL 0.6 MG/DL (0.1-1.0); BUN/CREATININE RATIO 20; CALCIUM 9.2 MG/DL (8.5-10.1); CARBON DIOXIDE 24 MMOL/L (21-32); CHLORIDE 103 MMOL/L (98-107); CHOLESTEROL 210 MG/DL (< 200); CREATININE SERUM 0.84 MG/DL (0.60-1.30); GFR ESTIMATED > 60; GLUCOSE 88 MG/DL (70-105); HDL CHOLESTEROL 52 MG/DL (40-60); POTASSIUM 4.2 MMOL/L (3.6-5.0); SODIUM 135 MMOL/L (135-145); TOTAL PROTEIN 6.8 GM/DL (6.4-8.2); TRIGLYCERIDES 226 MG/DL (<150); VLDL CHOLESTEROL 45 MG/DL (5-40)
== END ==
LOC: LAB 08:43
PROVIDERS: ATTEND Internal Medicine Cardiovascular Disease
DX: I10 Essential (primary) hypertension (principal); E78.5 Hyperlipidemia, unspecified; I73.9 Peripheral vascular disease, unspecified
CPT/HCPCS: 36415; 80053; 80061

== ENCOUNTER 2018-12-30 10:29 | Emergency (ER) | payer MEDICAID ==
[~2018-12-30] VITALS: Ht 177 cm; Wt 86.0 kg
[~2018-12-30 10:29] MED LIST changes: -AMLO5TAB7 PO; +AMLO5TAB9 PO
[2018-12-30] MEDS ORDERED: ANTACID SUSP 30 ML UDC (MYLANTA) PO ONE (10:45)
[2018-12-30] MEDS ORDERED: LIDOCAINE 2% VISCOUS 15 ML UDC PO ONE (10:45)
[2018-12-30] MEDS ORDERED: ASPIRIN 81 MG CHEW (CHILDREN'S ASA) PO ONE (10:45)
--- NOTE | 2018-12-30 10:50 | ED Chest Pain ---
General Chief Complaint: Chest Pain Stated Complaint: CHEST PAIN Source: patient Exam Limitations: no limitations History of Present Illness Date Seen by Provider: Dec 30, 2018 Time Seen by Provider: 10:46 Initial Comments To ER with reports of chest pain. This has been constant since last night, began when he was sitting down watching TV. Then the center of his chest does not radiate. No shortness of breath no nausea, no diaphoresis. No history of coronary artery disease or stenting, does have peripheral artery stenting however. He does smoke, hypertension, high cholesterol. His chest pain is worsened with turning his neck, with raising his arms, or touching the area. Has been constant since last night. Timing/Duration: constant Severity/Quality: moderate Location: central Radiation: no radiation Activities at Onset: rest Modifying Factors: worse with movement, worse with palpation ASA po VOLUNTEER SERVICES DIRECTOR: Yes NTG SL VOLUNTEER SERVICES DIRECTOR: No Associated Symptoms: No nausea/vomiting, No shortness of breath Allergies and Home Medications Allergies Coded Allergies: No Known Drug Allergies (Unverified , 02/22/17) Home Medications Acetaminophen 500 Mg Tablet, 1,000 MG PO Q8H PRN for PAIN-MILD, (Reported) TAKES 2 (500 MG) TABLETS Amlodipine Besylate 5 Mg Tablet, 5 MG PO DAILY, (Reported) Aspirin 81 Mg Tablet.dr, 81 MG PO DAILY, (Reported) Atorvastatin Calcium 40 Mg Tablet, 40 MG PO DAILY, (Reported) Cilostazol 50 Mg Tablet, 50 MG PO BID, (Reported) Clopidogrel Bisulfate 75 Mg Tablet, 75 MG PO DAILY, (Reported) Diphenhydramine HCl 25 Mg Capsule, 25 MG PO HS PRN for SLEEP, (Reported) Hydrochlorothiazide 12.5 Mg Capsule, 12.5 MG PO DAILY, (Reported) Hydroxyzine HCl 10 Mg Tablet, 10 MG PO TID PRN for ANXIETY, (Reported) Lisinopril 20 Mg Tablet, 20 MG PO DAILY, (Reported) Lurasidone HCl 80 Mg Tablet, 80 MG PO DAILY, (Reported) Nicotine 1 Each Patch.td24, 21 MG TD DAILY Prescribed by: JERRY PITT on 02/24/17 1005 Nicotine Polacrilex 4 Mg Gum, 4 MG BC Q2H PRN for craving Prescribed by: JERRY PITT on 02/24/17 1005 [place] 3 Polyunsat Fatty Acids 1,000 Mg Cap, 1,000 MG PO BID WITH MEALS, (Reported) Patient Home Medication List Home Medication List Reviewed: Yes Review of Systems Review of Systems Constitutional: see HPI; No diaphoresis EENTM: No Symptoms Reported Respiratory: No Symptoms Reported; Denies Cough, Denies Shortness of Air Cardiovascular: See HPI, Chest Pain Gastrointestinal: See HPI; Denies Abdominal Pain, Denies Nausea Genitourinary: No Symptoms Reported Musculoskeletal: no symptoms reported Skin: no symptoms reported Psychiatric/Neurological: No Symptoms Reported Endocrine: No Symptoms Reported Past Fdrbuzg-Vpdyzt-Sgzfrl Hx Patient Social History Type Used: Cigarettes Former Smoker, Quit: Feb 21, 2017 Recent Foreign Travel: No Contact w/Someone Who Travel: No Recent Hopitalizations: No Immunizations Up To Date Date of Pneumonia Vaccine: Jan 22, 2012 Date of Influenza Vaccine: Nov 22, 2016 Seasonal Allergies Seasonal Allergies: No Past Medical History Surgeries: Yes (vasectomy, STENT IN RT LEG) Vascular Surgery, Vasectomy Respiratory: No Cardiac: No (STATES "HEART ATTACK IN THE PAST" X3, STENT RIGHT LEG) Coronary Artery Disease, Heart Attack, High Cholesterol, Hypertension, Peripheral Vascular Neurological: No Genitourinary: No Gastrointestinal: No Musculoskeletal: No Endocrine: No HEENT: Yes Hearing Impairment: Hard of Hearing Cancer: No Psychosocial: Yes (alcohol abuse) Violent Behavior Integumentary: No Blood Disorders: No Family Medical History Patient reports no known family medical history. Physical Exam Vital Signs Vital Signs - First Documented 12/30/18 10:30 Temp 36.5 Pulse 68 Resp 17 B/P (MAP) 138/98 (111) Pulse Ox 96 Capillary Refill : Height, Weight, BMI Height: 5'10.00" Weight: 200lbs. 0.0oz. 90.534014kl; 28.7 BMI Method:Stated General Appearance: No Apparent Distress, WD/WN HEENT: PERRL/EOMI, Normal ENT Inspection Neck: Full Range of Motion, Normal Inspection Respiratory: Normal Breath Sounds, No Accessory Muscle Use, No Respiratory Distress, Other (lower central sternum tender to palpation) Cardiovascular: Regular Rate, Rhythm, Normal Peripheral Pulses Gastrointestinal: Normal Bowel Sounds, Non Tender, Soft Extremity: Normal Capillary Refill, Normal Inspection Neurologic/Psychiatric: Alert, Oriented x3 Skin: Normal Color Progress/Results/Core Measures Results/Orders Lab Results Laboratory Tests Test 12/30/18 10:40 12/30/18 12:37 Range/Units White Blood Count 7.6 4.3-11.0 10^3/uL Red Blood Count 4.59 4.35-5.85 10^6/uL Hemoglobin 13.7 13.3-17.7 G/DL Hematocrit 40 40-54 % Mean Corpuscular Volume 88 80-99 FL Mean Corpuscular Hemoglobin 30 25-34 PG Mean Corpuscular Hemoglobin Concent 34 32-36 G/DL Red Cell Distribution Width 13.1 10.0-14.5 % Platelet Count 324 130-400 10^3/uL Mean Platelet Volume 9.1 7.4-10.4 FL Neutrophils (%) (Auto) 64 42-75 % Lymphocytes (%) (Auto) 27 12-44 % Monocytes (%) (Auto) 7 0-12 % Eosinophils (%) (Auto) 2 0-10 % Basophils (%) (Auto) 0 0-10 % Neutrophils # (Auto) 4.9 1.8-7.8 X 10^3 Lymphocytes # (Auto) 2.0 1.0-4.0 X 10^3 Monocytes # (Auto) 0.5 0.0-1.0 X 10^3 Eosinophils # (Auto) 0.2 0.0-0.3 10^3/uL Basophils # (Auto) 0.0 0.0-0.1 10^3/uL Prothrombin Time 13.1 12.2-14.7 SEC INR Comment 1.0 0.8-1.4 Activated Partial Thromboplast Time 25 24-35 SEC Sodium Level 137 135-145 MMOL/L Potassium Level 4.3 3.6-5.0 MMOL/L Chloride Level 105 98-107 MMOL/L Carbon Dioxide Level 20 L 21-32 MMOL/L Anion Gap 12 5-14 MMOL/L Blood Urea Nitrogen 20 H 7-18 MG/DL Creatinine 0.86 0.60-1.30 MG/DL Estimat Glomerular Filtration Rate > 60 BUN/Creatinine Ratio 23 Glucose Level 95 70-105 MG/DL Calcium Level 8.9 8.5-10.1 MG/DL Corrected Calcium 8.8 8.5-10.1 MG/DL Magnesium Level 2.2 1.6-2.4 MG/DL Total Bilirubin 0.3 0.1-1.0 MG/DL Aspartate Amino Transf (AST/SGOT) 16 5-34 U/L Alanine Aminotransferase (ALT/SGPT) 20 0-55 U/L Alkaline Phosphatase 68 40-136 U/L Myoglobin 31.1 10.0-92.0 NG/ML Troponin I < 0.028 < 0.028 <0.028 NG/ML Total Protein 6.6 6.4-8.2 GM/DL Albumin 4.1 3.2-4.5 GM/DL My Orders Orders - BIANCA CLAY APRN Antacid Suspension (Mylanta Suspension (12/30/18 10:45) Lidocaine 2% Viscous 15 Ml (Xylocaine Vi (12/30/18 10:45) Fentanyl Injection (Sublimaze Injection (12/30/18 11:45) Ketorolac Injection (Toradol Injection) (12/30/18 11:45) Troponin I (12/30/18 12:40) Medications Given in ED Current Medications Medications Dose Ordered Sig/Javier Route Start Time Stop Time Status Last Admin Dose Admin Al Hydrox/Mg Hydrox/Simethicone 30 ml ONCE ONCE PO 12/30/18 10:45 12/30/18 10:46 DC 12/30/18 10:57 30 ML Aspirin 324 mg ONCE ONCE PO 12/30/18 10:45 12/30/18 10:46 DC 12/30/18 10:57 324 MG Fentanyl Citrate 50 mcg ONCE ONCE IVP 12/30/18 11:45 12/30/18 11:46 DC 12/30/18 11:52 50 MCG Ketorolac Tromethamine 15 mg ONCE ONCE IVP 12/30/18 11:45 12/30/18 11:46 DC 12/30/18 11:51 15 MG Lidocaine HCl 10 ml ONCE ONCE PO 12/30/18 10:45 12/30/18 10:46 DC 12/30/18 10:57 10 ML Vital Signs/I&O 12/30/18 10:30 Temp 36.5 Pulse 68 Resp 17 B/P (MAP) 138/98 (111) Pulse Ox 96 Departure Communication (Admissions) 1154-his pain went from a 6 on arrival to 4 out of 10 after GI cocktail. He requests a pillow to put behind his head because the muscles on the sides of his neck hurt from holding his neck And this exacerbates his chest pain. 1310-his chest pain seems to be musculoskeletal in nature because it is worsened with palpation or turning his neck or raising his arms. Chest x-ray is clear, EKG unremarkable, troponin 2 both negative. We'll discharged home to follow up with cardiology. Chest pain is much improved, still somewhat present in the upper chest just below his throat and now in the left trapezius region, worse with turning his head to either direction. No difficulty with swallowing. I discussed the case with Dr. Steward and he agrees with my plan Impression Primary Impression: Chest pain Qualified Codes: R07.9 - Chest pain, unspecified Disposition: HOME, SELF-CARE Condition: Improved Departure-Patient Inst. Decision time for Depature: 13:13 Referrals: JERRY PITT MD (PCP/Family) Primary Care Physician DESTINY SCHULTZ MD FACP [facility] Micaela CHEN MD, BASHAR J MD Patient Instructions: Chest Pain Add. Discharge Instructions: Return to ER promptly for any worsening recurrent chest pain, shortness of breath, nausea swelling or anything else that concerns her. Call a foot miter operator of your choosing on Tuesday to make an appointment to be seen. All discharge instructions reviewed with patient and/or family. Voiced understanding. Scripts Methocarbamol (Robaxin-750) 750 Mg Tablet 750 MG PO Q4H PRN for PAIN-MODERATE (4-6), #20 TAB Prov: BIANCA CLAY APRN 12/30/18 BIANCA CLAY APRN Dec 30, 2018 10:50 POS
[2018-12-30 10:52] LABS: BASOPHILS % (AUTO) 0 % (0-10); EOSINOPHILS # (AUTO) 0.2 10^3/uL (0.0-0.3); EOSINOPHILS % (AUTO) 2 % (0-10); HEMATOCRIT 40 % (40-54); HEMOGLOBIN 13.7 G/DL (13.3-17.7); LYMPHOCYTES % (AUTO) 27 % (12-44); MEAN CORPUSCULAR HEMOGLOBIN 30 PG (25-34); MEAN CORPUSCULAR HGB CONC 34 G/DL (32-36); MEAN CORPUSCULAR VOLUME 88 FL (80-99); MEAN PLATELET VOLUME 9.1 FL (7.4-10.4); MONOCYTES # (AUTO) 0.5 X 10^3 (0.0-1.0); MONOCYTES % (AUTO) 7 % (0-12); NEUTROPHILS # (AUTO) 4.9 X 10^3 (1.8-7.8); NEUTROPHILS % (AUTO) 64 % (42-75); PLATELET COUNT 324 10^3/uL (130-400); RED CELL DISTRIBUTION WIDTH 13.1 % (10.0-14.5); WHITE BLOOD COUNT 7.6 10^3/uL (4.3-11.0)
--- NOTE | 2018-12-30 10:56 | Diagnostic Imaging Report ---
INDICATION: Chest pain Frontal chest obtained at 10:46 a.m. Heart and mediastinal silhouette are normal in appearance. The lungs are clear. There is no pneumothorax or pleural fluid. IMPRESSION: Negative chest. Dictated by: Dictated on workstation # [id number]
[2018-12-30 11:02] LABS: PROTHROMBIN TIME PATIENT 13.1 SEC (12.2-14.7)
[2018-12-30 11:09] LABS: ALANINE AMINOTRANSFERASE 20 U/L (0-55); ALBUMIN 4.1 GM/DL (3.2-4.5); ALKALINE PHOSPHATASE 68 U/L (40-136); BILIRUBIN,TOTAL 0.3 MG/DL (0.1-1.0); BUN/CREATININE RATIO 23; CALCIUM 8.9 MG/DL (8.5-10.1); CARBON DIOXIDE 20 MMOL/L (21-32); CHLORIDE 105 MMOL/L (98-107); CREATININE SERUM 0.86 MG/DL (0.60-1.30); GFR ESTIMATED > 60; GLUCOSE 95 MG/DL (70-105); MAGNESIUM 2.2 MG/DL (1.6-2.4); POTASSIUM 4.3 MMOL/L (3.6-5.0); SODIUM 137 MMOL/L (135-145); TOTAL PROTEIN 6.6 GM/DL (6.4-8.2)
[2018-12-30] MEDS ORDERED: KETOROLAC 30 MG/ML VIAL IVP ONE (11:45)
[2018-12-30] MEDS ORDERED: fentaNYL INJECTION 100 MCG/2 ML AMP IVP ONE (11:45)
[2018-12-30] MEDS ORDERED: METH-313 PO (13:18)
[2018-12-30 13:50] VITALS: BP 138/98
== END 2018-12-30 13:53 | disposition home or self-care (01) ==
LOC: EDUNIT# 10:29 → ER 10:30
DX: R07.9 Chest pain, unspecified (principal); I10 Essential (primary) hypertension; E78.00 Pure hypercholesterolemia, unspecified; I25.10 Atherosclerotic heart disease of native coronary artery without angina pectoris; I25.2 Old myocardial infarction; F17.210 Nicotine dependence, cigarettes, uncomplicated; Z79.82 Long term (current) use of aspirin; Z79.02 Long term (current) use of antithrombotics/antiplatelets; Z87.891 Personal history of nicotine dependence
CPT/HCPCS: 36415; 71045; 80053; 83735; 83874; 84484; 85025; 85610; 85730; 93005; 93041

== ENCOUNTER 2018-12-31 10:40 | Observation (INO) | payer MEDICAID ==
[2018-12-31] VITALS (11 sets, daily range): BP systolic 105–124; BP diastolic 68–84
[~2018-12-31] VITALS: Ht 177.8 cm; Wt 85.6 kg
[~2018-12-31 10:40] MED LIST changes: +METH-313 PO
[2018-12-31] MEDS ORDERED: ASPIRIN 81 MG CHEW (CHILDREN'S ASA) PO ONE (11:00)
[2018-12-31 11:07] LABS: BASOPHILS % (AUTO) 0 % (0-10); EOSINOPHILS # (AUTO) 0.1 10^3/uL (0.0-0.3); EOSINOPHILS % (AUTO) 2 % (0-10); HEMATOCRIT 41 % (40-54); LYMPHOCYTES # (AUTO) 1.8 X 10^3 (1.0-4.0); LYMPHOCYTES % (AUTO) 29 % (12-44); MEAN CORPUSCULAR HEMOGLOBIN 30 PG (25-34); MEAN CORPUSCULAR HGB CONC 34 G/DL (32-36); MEAN CORPUSCULAR VOLUME 89 FL (80-99); MEAN PLATELET VOLUME 9.3 FL (7.4-10.4); MONOCYTES # (AUTO) 0.6 X 10^3 (0.0-1.0); MONOCYTES % (AUTO) 9 % (0-12); NEUTROPHILS # (AUTO) 3.7 X 10^3 (1.8-7.8); NEUTROPHILS % (AUTO) 59 % (42-75); PLATELET COUNT 293 10^3/uL (130-400); RED CELL DISTRIBUTION WIDTH 13.3 % (10.0-14.5); WHITE BLOOD COUNT 6.3 10^3/uL (4.3-11.0)
--- NOTE | 2018-12-31 11:12 | ED Chest Pain ---
General Stated Complaint: CHEST PAIN Source: patient Exam Limitations: no limitations History of Present Illness Date Seen by Provider: Dec 31, 2018 Time Seen by Provider: 10:50 Initial Comments Here with report of anterior chest pain that radiates to bilateral shoulders and neck. Onset last night. Had similar episode and was seen here yesterday for the same. He was concerned because he does have history of 3 previous heart attacks and has had 2 stents in his leg. He does smoke. Timing/Duration: 12 hours Severity/Quality: moderate, aching Location: central Radiation: shoulders (bilateral) Activities at Onset: none Prior CP/Workup: cardiac cath, heart attack ASA po OUTSIDE PARTS SALESMAN: No NTG SL OUTSIDE PARTS SALESMAN: No Associated Symptoms: No abdominal pain, No back pain, No diaphoresis, No nausea/vomiting, No shortness of breath, No weakness Allergies and Home Medications Allergies Coded Allergies: No Known Drug Allergies (Unverified , 02/22/17) Home Medications Acetaminophen 500 Mg Tablet, 1,000 MG PO Q8H PRN for PAIN-MILD, (Reported) TAKES 2 (500 MG) TABLETS Amlodipine Besylate 5 Mg Tablet, 5 MG PO DAILY, (Reported) Aspirin 81 Mg Tablet.dr, 81 MG PO DAILY, (Reported) Atorvastatin Calcium 40 Mg Tablet, 40 MG PO DAILY, (Reported) Cilostazol 50 Mg Tablet, 50 MG PO BID, (Reported) Clopidogrel Bisulfate 75 Mg Tablet, 75 MG PO DAILY, (Reported) Diphenhydramine HCl 25 Mg Capsule, 25 MG PO HS PRN for SLEEP, (Reported) Hydrochlorothiazide 12.5 Mg Capsule, 12.5 MG PO DAILY, (Reported) Hydroxyzine HCl 10 Mg Tablet, 10 MG PO TID PRN for ANXIETY, (Reported) Lisinopril 20 Mg Tablet, 20 MG PO DAILY, (Reported) Lurasidone HCl 80 Mg Tablet, 80 MG PO DAILY, (Reported) Methocarbamol 750 Mg Tablet, 750 MG PO Q4H PRN for PAIN-MODERATE (4-6) Prescribed by: BIANCA LCAY on 12/30/18 1318 Nicotine 1 Each Patch.td24, 21 MG TD DAILY Prescribed by: JERRY PITT on 02/24/17 1005 Nicotine Polacrilex 4 Mg Gum, 4 MG BC Q2H PRN for craving Prescribed by: JERRY PITT on 02/24/17 1005 [place] 3 Polyunsat Fatty Acids 1,000 Mg Cap, 1,000 MG PO BID WITH MEALS, (Reported) Patient Home Medication List Home Medication List Reviewed: Yes Review of Systems Review of Systems Constitutional: see HPI; No chills, No fever EENTM: No Symptoms Reported Respiratory: Denies Shortness of Air, Denies Wheezing Cardiovascular: Chest Pain; Denies Edema, Denies Lightheadedness Gastrointestinal: Denies Nausea, Denies Vomiting Genitourinary: No Symptoms Reported Musculoskeletal: see HPI, joint pain, muscle weakness Skin: no symptoms reported Psychiatric/Neurological: No Symptoms Reported All Other Systems Reviewed Negative Unless Noted: Yes Past Ryaerlv-Fsmwsi-Hnnynd Hx Past Med/Social Hx: Reviewed Nursing Past Med/Soc Hx Patient Social History Alcohol Use: Denies Use Recreational Drug Use: No Smoking Status: Current Everyday Smoker Type Used: Cigarettes Former Smoker, Quit: Feb 21, 2017 Recent Foreign Travel: No Contact w/Someone Who Travel: No Recent Hopitalizations: No Immunizations Up To Date Date of Pneumonia Vaccine: Jan 22, 2012 Date of Influenza Vaccine: Nov 22, 2016 Seasonal Allergies Seasonal Allergies: No Past Medical History Surgeries: Yes (vasectomy, STENT IN RT LEG) Vascular Surgery, Vasectomy Respiratory: No Cardiac: No (STATES "HEART ATTACK IN THE PAST" X3, STENT RIGHT LEG) Coronary Artery Disease, Heart Attack, High Cholesterol, Hypertension, Peripheral Vascular Neurological: No Genitourinary: No Gastrointestinal: No Musculoskeletal: No Endocrine: No HEENT: Yes Hearing Impairment: Hard of Hearing Cancer: No Psychosocial: Yes (alcohol abuse) Violent Behavior Integumentary: No Blood Disorders: No Family Medical History Reviewed Nursing Family Hx Patient reports no known family medical history. Physical Exam Vital Signs Capillary Refill : Height, Weight, BMI Height: 5'10.00" Weight: 200lbs. 0.0oz. 90.034481oe; 27.00 BMI Method:Stated General Appearance: No Apparent Distress, WD/WN HEENT: PERRL/EOMI, Pharynx Normal Neck: Non Tender, Supple Respiratory: Lungs Clear, Normal Breath Sounds Cardiovascular: Regular Rate, Rhythm, No Murmur Gastrointestinal: Non Tender, Soft Extremity: Normal Range of Motion, Non Tender Neurologic/Psychiatric: Alert, Oriented x3 Skin: Normal Color, Warm/Dry Progress/Results/Core Measures Results/Orders Lab Results Laboratory Tests Test 12/31/18 10:50 Range/Units White Blood Count 6.3 4.3-11.0 10^3/uL Red Blood Count 4.68 4.35-5.85 10^6/uL Hemoglobin 14.0 13.3-17.7 G/DL Hematocrit 41 40-54 % Mean Corpuscular Volume 89 80-99 FL Mean Corpuscular Hemoglobin 30 25-34 PG Mean Corpuscular Hemoglobin Concent 34 32-36 G/DL Red Cell Distribution Width 13.3 10.0-14.5 % Platelet Count 293 130-400 10^3/uL Mean Platelet Volume 9.3 7.4-10.4 FL Neutrophils (%) (Auto) 59 42-75 % Lymphocytes (%) (Auto) 29 12-44 % Monocytes (%) (Auto) 9 0-12 % Eosinophils (%) (Auto) 2 0-10 % Basophils (%) (Auto) 0 0-10 % Neutrophils # (Auto) 3.7 1.8-7.8 X 10^3 Lymphocytes # (Auto) 1.8 1.0-4.0 X 10^3 Monocytes # (Auto) 0.6 0.0-1.0 X 10^3 Eosinophils # (Auto) 0.1 0.0-0.3 10^3/uL Basophils # (Auto) 0.0 0.0-0.1 10^3/uL Prothrombin Time 13.0 12.2-14.7 SEC INR Comment 0.9 0.8-1.4 Activated Partial Thromboplast Time 25 24-35 SEC Sodium Level 138 135-145 MMOL/L Potassium Level 4.2 3.6-5.0 MMOL/L Chloride Level 105 98-107 MMOL/L Carbon Dioxide Level 21 21-32 MMOL/L Anion Gap 12 5-14 MMOL/L Blood Urea Nitrogen 16 7-18 MG/DL Creatinine 0.75 0.60-1.30 MG/DL Estimat Glomerular Filtration Rate > 60 BUN/Creatinine Ratio 21 Glucose Level 68 L 70-105 MG/DL Calcium Level 9.1 8.5-10.1 MG/DL Corrected Calcium 9.0 8.5-10.1 MG/DL Magnesium Level 2.2 1.6-2.4 MG/DL Total Bilirubin 0.3 0.1-1.0 MG/DL Aspartate Amino Transf (AST/SGOT) 16 5-34 U/L Alanine Aminotransferase (ALT/SGPT) 19 0-55 U/L Alkaline Phosphatase 67 40-136 U/L Myoglobin 23.7 10.0-92.0 NG/ML Troponin I < 0.028 <0.028 NG/ML Total Protein 7.1 6.4-8.2 GM/DL Albumin 4.1 3.2-4.5 GM/DL My Orders Orders - JOSUE VERMA MD Cbc With Automated Diff (12/31/18 10:54) Magnesium (12/31/18 10:54) Chest 1 View, Ap/Pa Only (12/31/18 10:54) Ekg Tracing (12/31/18 10:54) Cardiac Profile 1 (12/31/18 10:54) Comprehensive Metabolic Panel (12/31/18 10:54) Myoglobin Serum (12/31/18 10:54) Protime With Inr (12/31/18 10:54) Partial Thromboplastin Time (12/31/18 10:54) O2 (12/31/18 10:54) Monitor-Rhythm Ecg Trace Only (12/31/18 10:54) Lipid Panel (01/01/19 06:00) Ed Iv/Invasive Line Start (12/31/18 10:54) Aspirin Chewable Tablet (Baby Aspirin Ch (12/31/18 11:00) Medications Given in ED Current Medications Medications Dose Ordered Sig/Javier Route Start Time Stop Time Status Last Admin Dose Admin Aspirin 324 mg ONCE ONCE PO 12/31/18 11:00 12/31/18 11:01 DC 12/31/18 11:21 324 MG Progress Progress Note : Progress Note Seen and evaluated. IV, labs, EKG and chest x-ray ordered. ASA 325 mg by mouth ordered. Monitor patient. Labs reviewed. 1154: I did discuss the case with Dr. Mclaughlin, on-call for critical access hospital. She accepts patient for admission, observation status. 1157: I did discuss case with Dr. Cowan and he accepts patient in consult. All findings and concerns were discussed with patient and family who agree with plan. X-ray findings likely atelectasis as white count not elevated and patient afebrile. Initial ECG Impression Date: Dec 31, 2018 Initial ECG Impression Time: 10:51 Initial ECG Rate: 68 Initial ECG Rhythm: Normal Sinus Comment Sinus rhythm with normal axis. No evidence of ST elevation [place]. Similar to previous of 03/09/17. Interpreted by me. Diagnostic Imaging Diagonstic Imaging: Xray Plain Films/CT/US/NM/MRI: chest Comments NAME: ELOY CARROLL [facility] REC#: [id number] PT STATUS: REG ER : 1960 PHYSICIAN: JOSUE VERMA MD ADMIT DATE: 12/31/18/ER Signed POSDate of Exam: 12/31/18 CHEST 1 VIEW, AP/PA ONLY INDICATION: Unresolved chest pain.. TECHNIQUE: Single view chest 11:03 AM. CORRELATION STUDY: 12/30/2018 FINDINGS: Slightly increased density left lung base may reflect minimal infiltrate or atelectasis, appears changed from prior study. Remaining lung pulido are clear. Given differences in positioning and technique, heart size and vasculature stable. IMPRESSION: 1. Suggestion of perhaps minimal new area of atelectasis and/or infiltrate left lung base, change from prior study. Dictated by: Dictated on workstation # [id number] Dict: 12/31/18 1117 Trans: 12/31/18 1200 Interpreted by: CAROL HARRIS DO Electronically signed by: CAROL HARRIS DO 12/31/18 1200 Departure Communication (Admissions) Time/Spoke to Admitting Phy: 11:54 Time/Spoke to Consulting Phy: 11:57 Impression Primary Impression: Chest pain Qualified Codes: R07.9 - Chest pain, unspecified Disposition: ADMITTED INPATIENT Condition: Stable Admissions Decision to Admit Reason: Admit from ER (General) Decision to Admit/Date: Dec 31, 2018 Time/Decision to Admit Time: 11:54 Departure-Patient Inst. Referrals: JERRY PITT MD (PCP/Family) Primary Care Physician JOSUE VERMA MD Dec 31, 2018 11:12 POS
--- NOTE | 2018-12-31 11:22 | Diagnostic Imaging Report ---
INDICATION: Unresolved chest pain.. TECHNIQUE: Single view chest 11:03 AM. CORRELATION STUDY: 12/30/2018 FINDINGS: Slightly increased density left lung base may reflect minimal infiltrate or atelectasis, appears changed from prior study. Remaining lung pulido are clear. Given differences in positioning and technique, heart size and vasculature stable. IMPRESSION: 1. Suggestion of perhaps minimal new area of atelectasis and/or infiltrate left lung base, change from prior study. Dictated by: Dictated on workstation # [id number]
[2018-12-31 11:27] LABS: INR 0.9 (0.8-1.4)
[2018-12-31 11:37] LABS: ALANINE AMINOTRANSFERASE 19 U/L (0-55); ALBUMIN 4.1 GM/DL (3.2-4.5); ALKALINE PHOSPHATASE 67 U/L (40-136); BILIRUBIN,TOTAL 0.3 MG/DL (0.1-1.0); BUN/CREATININE RATIO 21; CALCIUM 9.1 MG/DL (8.5-10.1); CARBON DIOXIDE 21 MMOL/L (21-32); CHLORIDE 105 MMOL/L (98-107); CREATININE SERUM 0.75 MG/DL (0.60-1.30); GFR ESTIMATED > 60; GLUCOSE 68 MG/DL (70-105); MAGNESIUM 2.2 MG/DL (1.6-2.4); POTASSIUM 4.2 MMOL/L (3.6-5.0); SODIUM 138 MMOL/L (135-145); TOTAL PROTEIN 7.1 GM/DL (6.4-8.2)
--- NOTE | 2018-12-31 12:40 | NUR ---
ELOY CARROLL admitted to room 410-1, with an admitting diagnosis of chest pain, on 12/31/18 from ED via wheelchair, accompanied by staff and family.ELOY CARROLL introduced to surroundings, call light, bed controls, phone, TV, temperature control, lights, meal times, smoking policy, visitor policy, side rail policy, bathrooms and showers. ELOY CARROLL verbalizes understanding that [facility] is not responsible for the loss or damage to any personal effects or valuables that are kept in the patients posession during their hospitalization. ELOY CARROLL verbalizes understanding of Interdisciplinary Patient Education. Patient and/or family were informed about the Rapid Response Team and its purpose.
[2018-12-31] MEDS ORDERED: morphine INJ 4 MG/ML 1 ML (VIAL/SYRINGE) IVP PRN (13:15)
[2018-12-31] MEDS ORDERED: NITROGLYCERIN 0.4 MG SL TABS BTL 25'S SL PRN (13:15)
[2018-12-31] MEDS: IBUPROFEN TABLET 200 MG TAB PO PRN (14:01)
--- NOTE | 2018-12-31 15:20 | History & Physical-Hospitalist ---
History of Present Illness HPI/Chief Complaint This is a is a 58-year-old white male with a history of peripheral vascular disease who presents to the emergency room for the second day in a row with complaints of chest pain. He describes it as midsternal and goes through to his back. He does not think that it's exertional but it just seems to be there constantly. He says he is having now. He denies having any diaphoresis with this or other symptoms. Source: patient Exam Limitations: no limitations Date Seen 12/31/18 Time Seen by a Provider: 13:00 Attending Physician Sho Mclaughlin MD PCP Jerry Vasquez MD Referring Physician Date of Admission Dec 31, 2018 at 11:54 Home Medications & Allergies Home Medications Reviewed patient Home Medication Reconciliation performed by pharmacy medication reconciliations radio electronics technician and/or nursing. Patients Allergies have been reviewed. Allergies Allergies Coded Allergies No Known Drug Allergies (Unverified02/22/17) Past Fbygffo-Bfcwgg-Aqmssp Hx Past Med/Social Hx: Reviewed Nursing Past Med/Soc Hx Patient Social History Marrital Status: single Employed/Student: unemployed (On disability because of being bipolar and back pain.) Alcohol Use: Denies Use Recreational Drug Use: No Smoking Status: Current Everyday Smoker Former Smoker, Quit: Feb 21, 2017 Type Used: Cigarettes Recent Foreign Travel: No Contact w/other who traveled: No Recent Hopitalizations: No Recent Infectious Disease Expo: No Immunizations Up To Date Date of Pneumonia Vaccine: Jan 22, 2012 Date of Influenza Vaccine: Nov 22, 2018 Seasonal Allergies Seasonal Allergies: No Past Medical History Surgeries: Vascular Surgery, Vasectomy Cardiac: Coronary Artery Disease, Heart Attack, High Cholesterol, Hypertension, Peripheral Vascular Hearing Impairment: Hard of Hearing Psychosocial: Bipolar, Violent Behavior History of Blood Disorders: No Family History Reviewed Nursing Family Hx Patient reports no known family medical history. Review of Systems Constitutional: see HPI EENTM: no symptoms reported Respiratory: no symptoms reported Cardiovascular: chest pain Gastrointestinal: no symptoms reported Genitourinary: no symptoms reported Musculoskeletal: back pain Skin: no symptoms reported Psychiatric/Neurological: No Symptoms Reported Physical Exam Physical Exam Vital Signs Vital Signs - First Documented 12/31/18 12/31/18 10:40 14:17 Temp 36.7 Pulse 68 Resp 20 B/P (MAP) 116/85 (95) Pulse Ox 98 O2 Delivery Room Air Capillary Refill : Less Than 3 SecondsLess Than 3 Seconds Height, Weight, BMI Height: 5'10.00" Weight: 200lbs. 0.0oz. 90.678402xr; 27.00 BMI Method:Stated General Appearance: No Apparent Distress, WD/WN HEENT: TMs Normal, Normal ENT Inspection, Pharynx Normal Neck: Full Range of Motion, Normal Inspection, Supple Respiratory: Chest Non Tender, Lungs Clear, Normal Breath Sounds, No Accessory Muscle Use, No Respiratory Distress Cardiovascular: Regular Rate, Rhythm, No Edema, No JVD, No Murmur, Normal Peripheral Pulses Gastrointestinal: Normal Bowel Sounds, No Organomegaly, Non Tender, Soft Rectal: Deferred Back: Normal Inspection Extremity: Normal Capillary Refill, Non Tender, No Calf Tenderness Neurologic/Psychiatric: Alert, Oriented x3, No Motor/Sensory Deficits, Normal Mood/Affect Results Results/Procedures Labs Laboratory Tests 12/31/18 10:50 01/01/19 04:30 Patient resulted labs reviewed. Assessment/Plan Admission Diagnosis Chest pain History coronary artery disease-with previous heart attacks per his history Peripheral vascular disease Tobaccoism Bipolar disorder PLan for cardiology consult and risk stratification. Admission Status: Observation Clinical Quality Measures AMI/AHF: ASA po Prior to arrival: No DVT/VTE Risk/Contraindication: Risk Factor Score Per Nursin RFS Level Per Nursing on Admit: 4+=Very High Copy Copies To 1: JERRY VASQUEZ MD, KATHLEEN M MD Dec 31, 2018 15:20 POS
--- NOTE | 2018-12-31 15:28 | Consultation-Cardiology ---
HPI-Cardiology Cardiology Consultation: Date of Consultation 12/31/18 Time Seen by a Provider: 15:50 Date of Admission Attending Physician Sho Mclaughlin MD Admitting Physician Jerry Pitt MD Consulting Physician DESTINY SCHULTZ MD, MA, FACP, FACC, FSCAI, CCDS Primary core finisher: Dr Rebolledo HPI: Chief Complaint: CC: Chest discomfort HPI 58 yo man with chest pain: started on 12/29/18, continuous, mod in intensity, never experienced before, in the midsternal area, w/o radiation, w/o aggravating or relieving factors, w/o associated symptoms. He has chronic exertional shortness of breath He denies palp or syncope or recent leg swelling or fever or chills Review of Systems-Cardiology Review of Systems Constitutional: malaise, tiredness; No weight loss, No weight gain Eyes: No vision change Ears/Nose/Throat: No ear discharge, No nasal drainage, No recent hearing loss Respiratory: As described under HPI Cardiovascular: As described under HPI Gastrointestinal: No diarrhea, No nausea, No vomiting Genitourinary: No dysuria, No hematuria, No urine frequency changes Musculoskeletal: No back pain, No joint pain Skin: No rash, No ulcerations Psychiatric/Neurological: No seizure, No focal weakness, No syncope Hematologic: No bleeding abnormalities All Other Systems Reviewed Negative Unless Noted: Yes TDH-Gpzlrw-Hssaol Hx Patient Social History Marrital Status: single Employed/Student: unemployed (On disability because of being bipolar and back pain.) Alcohol Use: Denies Use Recreational Drug Use: No Smoking Status: Current Everyday Smoker Type Used: Cigarettes Recent Foreign Travel: No Recent Infectious Disease Expo: No Hospitalization with Isolation: Denies Immunizations Up To Date Date of Pneumonia Vaccine: Jan 22, 2012 Date of Influenza Vaccine: Nov 22, 2018 Past Medical History PMH As described under Assessment. Family Medical History Family Medical History: Father had SC in his 60s, according to the patient Family History: Patient reports no known family medical history. Allergies and Home Medications Allergies Coded Allergies: No Known Drug Allergies (Unverified , 02/22/17) Home Medications Acetaminophen 500 Mg Tablet, 1,000 MG PO Q8H PRN for PAIN-MILD, (Reported) TAKES 2 (500 MG) TABLETS Amlodipine Besylate 5 Mg Tablet, 5 MG PO DAILY, (Reported) Aspirin 81 Mg Tablet.dr, 81 MG PO DAILY, (Reported) Atorvastatin Calcium 40 Mg Tablet, 40 MG PO DAILY, (Reported) Cilostazol 50 Mg Tablet, 50 MG PO BID, (Reported) Clopidogrel Bisulfate 75 Mg Tablet, 75 MG PO DAILY, (Reported) Diphenhydramine HCl 25 Mg Capsule, 25 MG PO HS PRN for SLEEP, (Reported) Hydrochlorothiazide 12.5 Mg Capsule, 12.5 MG PO DAILY, (Reported) Hydroxyzine HCl 10 Mg Tablet, 10 MG PO TID PRN for ANXIETY, (Reported) Lisinopril 20 Mg Tablet, 20 MG PO DAILY, (Reported) Lurasidone HCl 80 Mg Tablet, 80 MG PO DAILY, (Reported) Methocarbamol 750 Mg Tablet, 750 MG PO Q4H PRN for PAIN-MODERATE (4-6) Prescribed by: BIANCA CLAY on 12/30/18 1318 Nicotine 1 Each Patch.td24, 21 MG TD DAILY Prescribed by: JERRY PITT on 02/24/17 1005 Nicotine Polacrilex 4 Mg Gum, 4 MG BC Q2H PRN for craving Prescribed by: JERRY PITT on 02/24/17 1005 [facility] 3 Polyunsat Fatty Acids 1,000 Mg Cap, 1,000 MG PO BID WITH MEALS, (Reported) Patient Home Medication List Home Medication List Reviewed: Yes Physical Exam-Cardiology Physical Exam Vital Signs/I&O 12/31/18 12/31/18 12/31/18 12/31/18 10:40 12:20 13:00 13:15 Temp 36.7 Pulse 68 64 60 56 Resp 18 18 B/P (MAP) 116/85 (95) 108/82 124/73 113/76 Pulse Ox 98 94 96 95 12/31/18 12/31/18 12/31/18 12/31/18 13:30 13:45 14:00 14:17 Pulse 54 59 61 Resp 16 18 20 B/P (MAP) 119/75 122/69 115/84 Pulse Ox 96 97 94 94 O2 Delivery Room Air 12/31/18 12/31/18 12/31/18 12/31/18 14:38 15:25 15:33 16:05 Temp 36.5 35.2 36.8 Pulse 58 68 55 68 Resp 16 18 16 B/P (MAP) 120/68 (85) 118/73 105/71 (82) Pulse Ox 95 96 95 O2 Delivery Room Air Room Air Room Air Capillary Refill : Less Than 3 SecondsLess Than 3 Seconds Constitutional: AAO x 3, well-developed, well-nourished HEENT: EOMI, hearing is well preserved; No xanthelasmas are seen Neck: carotid pulses are 2 + bilaterally, with good upstrokes Respiratory: No accessory muscle use; other (fair to good bilat air entry, a few scattered rhonchi, somewhat prolonged exp phase) Cardiovascular: regular rate-rhythm, S1 and S2, systolic murmur (faint RINKU at card base) Gastrointestinal: No tender; soft; No guarding, No rebound; audible bowel sounds Extremities: No swelling, No clubbing, No cyanosis Neurologic/Psychiatric: oriented x 3, other (moves all limbs equally) Skin: No rash on exposed areas, No ulcerations on exposed areas Data Review Labs Laboratory Tests 12/31/18 10:50: White Blood Count 6.3, Red Blood Count 4.68, Hemoglobin 14.0, Hematocrit 41, Mean Corpuscular Volume 89, Mean Corpuscular Hemoglobin 30, Mean Corpuscular Hemoglobin Concent 34, Red Cell Distribution Width 13.3, Platelet Count 293, Mean Platelet Volume 9.3, Neutrophils (%) (Auto) 59, Lymphocytes (%) (Auto) 29, Monocytes (%) (Auto) 9, Eosinophils (%) (Auto) 2, Basophils (%) (Auto) 0, Neutrophils # (Auto) 3.7, Lymphocytes # (Auto) 1.8, Monocytes # (Auto) 0.6, Eosinophils # (Auto) 0.1, Basophils # (Auto) 0.0, Prothrombin Time 13.0, INR Comment 0.9, Activated Partial Thromboplast Time 25, Sodium Level 138, Potassium Level 4.2, Chloride Level 105, Carbon Dioxide Level 21, Anion Gap 12, Blood Urea Nitrogen 16, Creatinine 0.75, Estimat Glomerular Filtration Rate > 60, BUN/Creatinine Ratio 21, Glucose Level 68L, Calcium Level 9.1, Corrected Calcium 9.0, Magnesium Level 2.2, Total Bilirubin 0.3, Aspartate Amino Transf (AST/SGOT) 16, Alanine Aminotransferase (ALT/SGPT) 19, Alkaline Phosphatase 67, Myoglobin 23.7, Troponin I < 0.028, Total Protein 7.1, Albumin 4.1 Laboratory Tests 12/31/18 10:50 A/P-Cardiology Assessment/Admission Diagnosis Nonspecific chest pain of undetermined etiology. It is reproducible with palpation, suggesting a musculoskeletal origin H/o intermittent, nonspecific chest pain. Most recent stress test of September 2016 revealed no ischemia or infarct PAD with h/o PCIs. Last angiogram done March 09, 2017: totally occluded right anterior tibial artery down at the ankle level with slow flow in the anterior tibial bu no other significant obstructive disease, excellent flow through the posterior tibial and peroneal artery. Patent 2 stents overlapping in the right mid SFA and right popliteal artery. Fluoroscopy done to the stent with the knee bent to the side which appeared to be intact Nonobstructive carotid artery stenosis per carotid duplex done at Dr Rebolledo'renate in March 2017 Hypertension Hyperlipidemia treated with statin History of depression Chronic tobacco use: smokes cigarettes Discussion and Recomendations * Tele * Serial card enzymes * Advised to quit smoking * If negative for ac SC, then MPI Clinical Quality Measures AMI/AHF: ASA po Prior to arrival: No DVT/VTE Risk/Contraindication: Risk Factor Score Per Nursin RFS Level Per Nursing on Admit: 4+=Very High DESTINY SCHULTZ MD FACP FAC CCDS Dec 31, 2018 15:28 POS
[2018-12-31] MEDS ORDERED: ACETAMINOPHEN 500 MG TAB (TYLENOL) PO PRN (15:45)
[2018-12-31] MEDS ORDERED: hydrOXYzine (ATARAX) 10 MG TAB PO PRN (15:45)
[2018-12-31] MEDS: OMEGA 3 (FISH OIL) 1000 MG CAP PO SCH (16:26)
[2018-12-31] MEDS ORDERED: REGADENOSON 0.4 MG/5 ML SYR (LEXISCAN) IV ONE (16:45)
[2018-12-31] MEDS ORDERED: CILOSTAZOL 50 MG PO SCH (21:00)
[2018-12-31] MEDS ORDERED: diphenhydrAMINE 25 MG TAB (BENADRYL) PO PRN (21:00)
[2019-01-01 00:50] VITALS: BP 103/70
[2019-01-01] MEDS: IBUPROFEN TABLET 200 MG TAB PO PRN (03:53)
[2019-01-01 04:50] VITALS: BP 112/80
[2019-01-01 05:25] LABS: BASOPHILS % (AUTO) 0 % (0-10); EOSINOPHILS # (AUTO) 0.1 10^3/uL (0.0-0.3); EOSINOPHILS % (AUTO) 3 % (0-10); HEMATOCRIT 41 % (40-54); HEMOGLOBIN 13.5 G/DL (13.3-17.7); LYMPHOCYTES # (AUTO) 1.5 X 10^3 (1.0-4.0); LYMPHOCYTES % (AUTO) 32 % (12-44); MEAN CORPUSCULAR HEMOGLOBIN 29 PG (25-34); MEAN CORPUSCULAR HGB CONC 33 G/DL (32-36); MEAN CORPUSCULAR VOLUME 89 FL (80-99); MEAN PLATELET VOLUME 9.6 FL (7.4-10.4); MONOCYTES # (AUTO) 0.4 X 10^3 (0.0-1.0); MONOCYTES % (AUTO) 9 % (0-12); NEUTROPHILS # (AUTO) 2.7 X 10^3 (1.8-7.8); NEUTROPHILS % (AUTO) 57 % (42-75); PLATELET COUNT 289 10^3/uL (130-400); RED CELL DISTRIBUTION WIDTH 13.6 % (10.0-14.5); WHITE BLOOD COUNT 4.7 10^3/uL (4.3-11.0)
[2019-01-01 05:48] LABS: ALANINE AMINOTRANSFERASE 18 U/L (0-55); ALBUMIN 3.8 GM/DL (3.2-4.5); ALKALINE PHOSPHATASE 60 U/L (40-136); BILIRUBIN,TOTAL 0.3 MG/DL (0.1-1.0); BUN/CREATININE RATIO 22; CALCIUM 8.9 MG/DL (8.5-10.1); CARBON DIOXIDE 21 MMOL/L (21-32); CHLORIDE 105 MMOL/L (98-107); CHOLESTEROL 184 MG/DL (< 200); CREATININE SERUM 0.81 MG/DL (0.60-1.30); GFR ESTIMATED > 60; GLUCOSE 94 MG/DL (70-105); HDL CHOLESTEROL 41 MG/DL (40-60); POTASSIUM 3.9 MMOL/L (3.6-5.0); SODIUM 137 MMOL/L (135-145); TOTAL PROTEIN 6.2 GM/DL (6.4-8.2); TRIGLYCERIDES 174 MG/DL (<150); VLDL CHOLESTEROL 35 MG/DL (5-40)
--- NOTE | 2019-01-01 06:53 | NUR ---
patient's cilostazol & latuda are [id number] rn informed pt that he needs to have someone bring them from home to have pharmacy verify them for use during his hospital stay-pt states that he will ask someone to bring them in.
--- NOTE | 2019-01-01 07:34 | NUR ---
Patient taken for stress test at this time.
[2019-01-01] MEDS ORDERED: CATHETER FLUSH 10 ML SYR IV PRN (08:00)
--- NOTE | 2019-01-01 08:24 | Cardiology Progress Note ---
Subjective Date Seen by Provider: Jan 01, 2019 Time Seen by Provider: 08:05 Subjective/Events-last exam Patient down in [facility] room for stress test. Denies any chest pain this morning. Review of Systems General: No Chills, No Night Sweats, No Fatigue, No Malaise, No Appetite, No Other HEENT: No Head Aches, No Visual Changes, No Eye Pain, No Ear Pain, No Dysphasia, No Sinus Congestion, No Post Nasal Drip, No Sore Throat, No Other Pulmonary: No Dyspnea, No Cough, No Pleuritic Chest Pain, No Other Cardiovascular: No: Chest Pain, Palpitations, Orthopnea, Paroxysmal Noc. Dyspnea, Edema, Lt Headedness, Other Objective-Cardiology Exam Last Set of Vital Signs Vital Signs 01/01/19 11:10 Temp 36.3 Pulse 70 Resp 20 B/P (MAP) 120/80 (93) Pulse Ox 93 O2 Delivery Room Air Capillary Refill : Less Than 3 SecondsLess Than 3 Seconds I&O Intake and Output 01/01/19 00:00 Intake Total 890 ml Output Total 850 ml Balance 40 ml Intake Oral 890 ml Output Urine Total 850 ml Daily Weight Change No No General: Alert, Oriented X3, Cooperative HEENT: Atraumatic, PERRLA Neck: Supple, No JVD, No Thyromegaly Lungs: Clear to Auscultation, Normal Air Movement Heart: Regular Rate, Normal S1, Normal S2, No Murmurs Abdomen: Normal Bowel Sounds, Soft, No Tenderness, No Hepatosplenomegaly, No Masses Extremities: No Clubbing, No Cyanosis, No Edema, Normal Pulses, No Tenderness/Swelling Skin: No Rashes, No Breakdown, No Significant Lesion Neuro: Normal Speech, Cranial Nerves 3-12 NL Psych/Mental Status: Mental Status NL, Mood NL Results Lab Laboratory Tests 01/01/19 04:30 A/P-Cardiology Admission Diagnosis Chest pain PAD HTN HLP Assessment/Plan Chest pain, nonspecific etiology. EKG reveals no acute ST changes, cardiac enzymes negative. Denies any active chest pain at this time. Has multiple risk factors for underlying CAD. Planning for stress test this morning. H/o intermittent, nonspecific chest pain. Most recent stress test of September 2016 revealed no ischemia or infarct PAD with h/o PCIs. Last angiogram done March 09, 2017: totally occluded right anterior tibial artery down at the ankle level with slow flow in the anterior tibial bu no other significant obstructive disease, excellent flow through the posterior tibial and peroneal artery. Patent 2 stents overlapping in the right mid SFA and right popliteal artery. Fluoroscopy done to the stent with the knee bent to the side which appeared to be intact. Nonobstructive carotid artery stenosis per carotid duplex done March 2017, continue to monitor. Hypertension, restart home blood pressure medications and continue to monitor. Hyperlipidemia, maintained on statin, continue to monitor. History of depression Chronic tobacco use: smokes cigarettes, advised smoking cessation. Patient was seen and evaluated with Loyda, examination performed, management plan was discussed, agree with the current scribed note, I made few changes to the note using Italic font Patient is feeling better, no further episode of chest pain. No palpitation Stress test was done showing no significant ischemia or infarction, diaphragmatic attenuation Okay for discharge from cardiology standpoint and follow up as an outpatient Clinical Quality Measures AMI/AHF: ASA po Prior to arrival: No DVT/VTE Risk/Contraindication: Risk Factor Score Per Nursin RFS Level Per Nursing on Admit: 4+=Very High LOYDA ISLAS Jan 01, 2019 8:24 am LELAND MEZA MD Jan 01, 2019 1:48 pm POS
[2019-01-01] MEDS ORDERED: ASPIRIN E.C. 81 MG (ECOTRIN) TAB PO SCH ×2 (09:00)
[2019-01-01] MEDS ORDERED: CLOPIDOGREL 75 MG (PLAVIX) TABLET PO SCH (09:00)
[2019-01-01] MEDS ORDERED: amLODIPine 5 MG (NORVASC) TAB PO SCH (09:00)
[2019-01-01] MEDS ORDERED: HYDROCHLOROTHIAZIDE 12.5 MG (HCTZ) CAP PO SCH (09:00)
[2019-01-01] MEDS ORDERED: NICOTINE 21 MG (NICODERM) PATCH TD SCH (09:00)
[2019-01-01] MEDS ORDERED: lisINopril 20 MG (PRINIVIL) TABLET PO SCH (09:00)
[2019-01-01] MEDS ORDERED: NON-FORMULARY MEDICATION 1 EA EA (Lurasidone HCl (Latuda) 80 MG) PO SCH (09:00)
[2019-01-01] MEDS ORDERED: REGADENOSON 0.4 MG/5 ML SYR (LEXISCAN) IV ONE (09:02)
[2019-01-01 09:11] VITALS: BP 128/83
[2019-01-01 09:18] VITALS: BP 119/66
[2019-01-01 11:10] VITALS: BP 120/80
[2019-01-01] MEDS: OMEGA 3 (FISH OIL) 1000 MG CAP PO SCH (11:24)
[2019-01-01] MEDS ORDERED: LURASIDONE 80 MG (LATUDA) TABLET NON-FORMULARY PO SCH (12:00)
--- NOTE | 2019-01-01 13:19 | Discharge Summary ---
Discharge Summary Hospital Course Problems/Diagnosis: (1) Chest pain Status: Acute Qualifiers: Qualified Codes: R07.9 - Chest pain, unspecified Hospital Course Date of Admission: Dec 31, 2018 at 11:54 Admission Diagnosis : Family Physician/Provider: Jerry Vasquez MD Date of Discharge: 01/01/19 Discharge Diagnosis: Chest pain with normal stress test Hospital Course: Pt admitted with chest pain, troponins negative and stress test normal. Labs and Pending Lab Test: Laboratory Tests 12/31/18 16:50: Troponin I < 0.028 01/01/19 04:30: White Blood Count 4.7, Red Blood Count 4.59, Hemoglobin 13.5, Hematocrit 41, Mean Corpuscular Volume 89, Mean Corpuscular Hemoglobin 29, Mean Corpuscular Hemoglobin Concent 33, Red Cell Distribution Width 13.6, Platelet Count 289, Mean Platelet Volume 9.6, Neutrophils (%) (Auto) 57, Lymphocytes (%) (Auto) 32, Monocytes (%) (Auto) 9, Eosinophils (%) (Auto) 3, Basophils (%) (Auto) 0, Neutrophils # (Auto) 2.7, Lymphocytes # (Auto) 1.5, Monocytes # (Auto) 0.4, Eosinophils # (Auto) 0.1, Basophils # (Auto) 0.0, Sodium Level 137, Potassium Level 3.9, Chloride Level 105, Carbon Dioxide Level 21, Anion Gap 11, Blood Urea Nitrogen 18, Creatinine 0.81, Estimat Glomerular Filtration Rate > 60, BUN/Creatinine Ratio 22, Glucose Level 94, Calcium Level 8.9, Corrected Calcium 9.1, Total Bilirubin 0.3, Aspartate Amino Transf (AST/SGOT) 12, Alanine Aminotransferase (ALT/SGPT) 18, Alkaline Phosphatase 60, Total Protein 6.2L, Albumin 3.8, Triglycerides Level 174H, Cholesterol Level 184, LDL Cholesterol Direct 125, VLDL Cholesterol 35, HDL Cholesterol 41 Home Meds Active Robaxin-750 (Methocarbamol) 750 Mg Tablet 750 Mg PO Q4H PRN Nicotine Gum (Nicotine Polacrilex) 4 Mg Gum 4 Mg BC Q2H PRN Nicotine Patch (Nicotine) 1 Each Patch.td24 21 Mg TD DAILY 42 Days Reported Fish Oil 1,000 mg Capsule ([place] 3 Polyunsat Fatty Acids) 1,000 Mg Cap 1,000 Mg PO BID WITH MEALS Norvasc (Amlodipine Besylate) 5 Mg Tablet 5 Mg PO DAILY Atorvastatin Calcium 40 Mg Tablet 40 Mg PO DAILY Hydroxyzine HCl 10 Mg Tablet 10 Mg PO TID PRN Acetaminophen 500 Mg Tablet 1,000 Mg PO Q8H PRN TAKES 2 (500 MG) TABLETS Aspirin EC (Aspirin) 81 Mg Tablet.dr 81 Mg PO DAILY Hydrochlorothiazide 12.5 Mg Capsule 12.5 Mg PO DAILY Lisinopril 20 Mg Tablet 20 Mg PO DAILY Banophen (Diphenhydramine HCl) 25 Mg Capsule 25 Mg PO HS PRN Clopidogrel (Clopidogrel Bisulfate) 75 Mg Tablet 75 Mg PO DAILY Cilostazol 50 Mg Tablet 50 Mg PO BID Latuda (Lurasidone HCl) 80 Mg Tablet 80 Mg PO DAILY Assessment/Pt DC Instructions Follow up with Sho Neal APRN (Nurse practitioner with Dr. Vasquez) on 01/05 at 9 am. Discharge Diet: Cardiac Diet Activity as Tolerated: Yes Discharge Physical Examination Allergies: Coded Allergies: No Known Drug Allergies (Unverified , 02/22/17) General Appearance: No Apparent Distress, WD/WN Respiratory: Lungs Clear, Normal Breath Sounds Cardiovascular: Regular Rate, Rhythm, No Edema, No Murmur Gastrointestinal: Normal Bowel Sounds, Non Tender, Soft Skin: Normal Color, Warm/Dry Neurologic/Psychiatric: Alert, Normal Mood/Affect Copy Copies To 1: JERRY VASQUEZ MD Discharge Summary Date of Admission Dec 31, 2018 at 11:54 Date of Discharge Admission Diagnosis Chest pain History coronary artery disease-with previous heart attacks per his history Peripheral vascular disease Tobaccoism Bipolar disorder PLan for cardiology consult and risk stratification. Clinical Quality Measures AMI/AHF: ASA po Prior to arrival: No DVT/VTE Risk/Contraindication: Risk Factor Score Per Nursin RFS Level Per Nursing on Admit: 4+=Very High JERRY VASQUEZ MD Jan 01, 2019 13:19 POS
--- NOTE | 2019-01-01 14:50 | STRESS TEST ---
DATE OF SERVICE: 01/01/2019 LEXISCAN MYOVIEW STRESS TEST REPORT REFERRING PHYSICIAN: Dr. Vasquez. Baseline heart rate is 66, baseline blood pressure 115/83. Baseline EKG is sinus rhythm with no ischemic changes. In summary, the patient was injected with 10.04 mCi of technetium-99 Myoview and the resting images were obtained. Then, the patient received 0.4 mg of Lexiscan followed by 31.0 mCi of technetium-99 Myoview. Throughout the test, there were no EKG changes. The resting and stress images were reviewed and compared in the short axis, horizontal long axis, and vertical long axis views. Review of the images showed good radiotracer uptake with mild decreased uptake at the apex. No significant ischemia or infarction. SSS is 1, SDS 1, TID value 0.9. On the gated images, the left ventricle appeared to be normal size with normal contractility. Calculated ejection fraction 56%. CONCLUSION: 1. The patient tolerated Lexiscan well. 2. No significant ischemia or infarction on SPECT images. 3. Normal left ventricular size with normal contractility. Calculated ejection fraction 56%. Job ID: [id number] DocumentID: [id number] Dictated Date: 01/01/2019 11:52:28 Manager Flight Operations Date: 01/01/2019 14:49:20 Dictated By: LELAND BROWN MD
== END 2019-01-01 13:15 | disposition home or self-care (01) ==
LOC: EDUNIT# 10:42 → ER 10:43 → 4TH 11:54 → UNDOADMOB 11:54 → 4TH 12:40 → UNDODISOB 01-01 13:57
PROVIDERS: ADMIT Internal Medicine; ATTEND Family Medicine
DX: R07.9 Chest pain, unspecified (principal); I25.10 Atherosclerotic heart disease of native coronary artery without angina pectoris; I73.9 Peripheral vascular disease, unspecified; F17.210 Nicotine dependence, cigarettes, uncomplicated; I11.0 Hypertensive heart disease with heart failure; I50.9 Heart failure, unspecified; E78.00 Pure hypercholesterolemia, unspecified; E78.5 Hyperlipidemia, unspecified; Z79.82 Long term (current) use of aspirin; Z79.02 Long term (current) use of antithrombotics/antiplatelets; Z79.899 Other long term (current) drug therapy; Z98.52 Vasectomy status; Z82.49 Family history of ischemic heart disease and other diseases of the circulatory system
CPT/HCPCS: 36415; 71045; 78452; 80053; 80061; 83735; 83874; 84484; 85025; 85610; 85730; 93005; 93017; 93041; G0378

== ENCOUNTER → 2019-01-19 | Outpatient (CLI) | payer MEDICAID ==
--- NOTE | 2019-01-19 12:30 | Diagnostic Imaging Report ---
TIME OF EXAM: 01/19/2019 11:45 AM REASON FOR EXAM: Lung cancer screening. [id number]. History of three myocardial infarctions. COMPARISON: 12/13/2017. TECHNIQUE: Low Dose CT helical images obtained through the chest. Dose reduction techniques were utilized. CTDI vol: 2.22 mGy FINDINGS: Lungs: Lung volumes are normal. No significant emphysema or fibrosis is present. There is no appreciable bronchiectasis. No suspicious pulmonary nodules are present. The area of nodularity in the left lung base near the apex of the heart is stable, likely representing an area of prior atelectasis and/or scarring. No pulmonary mass or consolidation is present. No central endoluminal airway lesion is seen. Heart and Mediastinum: Heart size is within normal limits. Small amount of coronary calcifications are present. Aortic atherosclerosis is present without aneurysm. No pericardial effusion is present. No axillary, supraclavicular, mediastinal, internal mammary, or hilar adenopathy is present by CT size criteria. Normal size and attenuation of the visualized thyroid gland. Pleura: Normal pleural spaces. No effusion or pneumothorax. No pleural nodularity or mass. Abdomen: Included views of the upper abdomen demonstrate no acute abnormality. Bones and soft tissues: Regional skeletal and soft tissue structures are age-appropriate. IMPRESSION: 1. No suspicious pulmonary nodules or masses. Recommend continued annual surveillance with low-dose chest CT. 2. Stable nodularity in the lingula, favored to represent chronic scarring. 3. No thoracic lymphadenopathy. Result code: Category 2: Benign Appearance or Behavior Follow up: Continue annual screening with LDCT in 12 months Dictated by: Dictated on workstation # [id number]
== END ==
LOC: RAD 10:47
PROVIDERS: ATTEND Family Medicine
DX: Z12.2 Encounter for screening for malignant neoplasm of respiratory organs (principal); J98.4 Other disorders of lung; I25.2 Old myocardial infarction

== ENCOUNTER 2019-05-27 19:55 | Emergency (ER) | payer MEDICAID ==
--- OUTSIDE RECORDS SUMMARY | 2019-05-27 20:02 | XMS REPORT | Encounter Summary ---
Author Author [facility] Organization [facility] Address Unknown Phone Unavailable Care Team Providers Care Prefitter Doors Name Role Phone Marielena aVsquez MD PCP Encounter Details Care Team Description Date Type Department Elvin Voss MD [address] [facility] [address] [place] [address] 12/13/2018 Orders Only [facility] [address] [place] [address] Social History Date Tobacco Use Types Packs/Day Years Used Current Every Day Smoker Cigarettes 1 40 Smokeless Tobacco: Never Used Drinks/Week oz/Week Comments Alcohol Use Never Alcohol Habits Answer Date Recorded How often do you have a drink containing alcohol? Never 11/17/2018 How many drinks containing alcohol do you have on No t asked a typical day when you are drinking? How often do you have six or more drinks on one Not asked occasion? Sex Assigned at Date Recorded Not on file Industry Job Start Date Occupation Not on file Not on file Not on file Travel End Travel History Travel Start No recent travel history available. documented as of this encounter Plan of Treatment Not on filedocumented as of this encounter Visit Diagnoses Not on filedocumented in this encounter
--- OUTSIDE RECORDS SUMMARY | 2019-05-27 20:02 | XMS REPORT | Encounter Summary ---
Author Author [facility] Organization [facility] Address Unknown Phone Unavailable Care Team Providers Care Wax Room Supervisor Name Role Phone Marielena Vasquez MD PCP Encounter Details Care Team Description Date Type Department Elvin Voss MD [address] Orth[facility] [address] [phone] 01/11/2019 [facility] [address] [place] [id number] Social History Date Tobacco Use Types Packs/Day [...] history available. documented as of this encounter Medications at Time of Discharge Start Date End Date Medication Sig Dispensed Refills amLODIPine (NORVASC) 5 mg Take 5 mg by 0 tablet mouth daily. aspirin EC 81 mg tablet Take 81 mg by 0 mouth daily. Take with food. atorvastatin (LIPITOR) 80 Take 80 mg by 0 mg tablet mouth daily. clopiDOGrel (PLAVIX) 75 Take 75 mg by 0 mg tablet mouth daily. cyclobenzaprine Take 10 mg by 0 (FLEXERIL) 10 mg tablet mouth three times daily as needed for Muscle Cramps. divalproex (DEPAKOTE ER) Take 500 mg 0 500 mg ER tablet by mouth twice daily. Take with food. fish oil- omega 3-DHA/EPA Take 1 0 300/1,000 mg capsule capsule by mouth daily. hydrOXYzine (ATARAX) 25 Take 25 mg by 0 mg tablet mouth three times daily. lisinopril-hydrochlorothi Take 1 tablet 0 azide (PRINZIDE, by mouth ZESTORETIC) 20-12.5 mg every tablet morning. lurasidone (LATUDA) 40 mg Take 40 mg by 0 tablet mouth at bedtime daily. naproxen (NAPROSYN) 500 Take 500 mg 0 mg tablet by mouth twice daily as needed. Take with food. 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 Redemonstration of resection of the scaphoid and 4 corner arthrodesis of [facility] the wrist with percutaneous K wires. Al ignment is maintained. There is partial incorporation, greatest at the lunocapi avendano articulation. The triquetral hamate articulation is partially obscured by t he wires. 2. Bone graft donor site in the dista l radius again noted. 3. Persistent though decreased soft t issue swelling. Finalized by Lupillo Raman M.D. on 01/11 4:06 PM. Dictated by Lupillo Raman M.D. on 01/11/2019 4:05 PM. Narrative Performed At Exam: WRIST COMP MIN 3 VIEWS RIGHT [facility] CLINICAL INDICATION: 58 years Male DOS: 12/08/18, arthritis of right wrist, scaphoid to me and 4 corner fusion righ t COMPARISON: December 21, 2018. Procedure Note Interface, Radiant Results - 01/11/2019 4:09 PM ARCHERY INSTRUCTOR Exam: WRIST COMP MIN 3 VIEWS RIGHT CLINICAL INDICATION: 58 years Male DOS: 12/08/18, arthritis of right wrist, scaphoid to me and 4 corner fusion right COMPARISON: December 21, 2018. IMPRESSION 1. Redemonstration of resection of the scaphoid and 4 corner arthrodesis of the wrist with percutaneous K wires. Alignment is maintained. There is partial incorporation, greatest at the lunocapitate articulation. The triquetral hamate articulation is partially obscured by the wires. 2. Bone graft donor site in the distal radius again noted. 3. Persistent though decreased soft tis eusebio swelling. Finalized by Lupillo Raman M.D. on 01/11/2019 4:06 PM. Dictated by Lupillo Raman M.D. on 01/11/2019 4:05 PM. Performing Organization Address City/State/Zipcode Ph one Number [facility] documented in this encounter Visit Diagnoses Diagnosis Arthritis of right wrist Unspecified arthropathy, forearm documented in this encounter
--- OUTSIDE RECORDS SUMMARY | 2019-05-27 20:02 | XMS REPORT | Encounter Summary ---
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 OR [address] [id number] Social History Date Tobacco Use Types Packs/Day [...] history available. documented as of this encounter Last Filed Vital Signs Reading Time Taken Comments Vital Sign 130/72 12/08/2018 11:15 AM CDT Blood Pressure 63 12/08/2018 11:15 AM CDT Pulse 36.4 C (97.5 F) 12/08/2018 11:15 AM CDT Temperature - - Respiratory Rate 97% 12/08/2018 11:15 AM CDT Oxygen Saturation - - Inhaled Oxygen Concentration 85.7 kg (188 lb 15 oz) 12/08/2018 8:00 AM CDT Weight 177.8 cm (5' 10") 12/08/2018 8:00 AM CDT Height 27.11 12/08/2018 8:00 AM CDT Body Mass Index documented in this encounter Medications at Time of Discharge [...] twice daily as needed. Take with food. 12/08/2018 12/13/2018 HYDROcodone/acetaminophen Take one 40 tablet 0 (NORCO) 5/325 mg tablet tablet to two tablets by mouth every 4 hours as needed for Pain documented as of this encounter H&P Notes * Georgie Benedict PA-C - 12/08/2018 8:28 AM CDT [facility] History & Physical Note Admission Date: 12/08/2018 Chief Complaint: Right scaphoid proximal pole avascular necrosis Assessment/Plan Plan to proceed to OR today for a right scaphoidectomy and four corner fusion History of Present Illness: Ryan Sorto is a 58 y.o. male. He feels th at the corticosteroid injection into his wrist was helpful initially, but the pa in has returned. Any kind of gripping activity such as holding onto a coffee cu p is painful, making use of the wrist limited. He has tried using a Velcro wris t splint. He has cut back significantly on his smoking. Medical History: Diagnosis Date Anxiety Arthritis Back pain Bipolar disorder (HCC) Bleeding disorder (HCC) Deep vein thrombosis (DVT) (HCC) ~2017 right lower extremity Depression Hyperlipidemia Hypertension Myocardial infarction (HCC) x3 Surgical History: Procedure Laterality Date HX APPENDECTOMY VASCULAR SURGERY stent right lower extremity VASECTOMY Social History Socioeconomic History Marital status: Single Spouse name: Not on file Number of children: Not on file Years of education: Not on file Highest education level: Not on file Occupational History Not on file Tobacco Use Smoking status: Current Every Day Smoker Packs/day: 1.00 Years: 40.00 Pack years: 40.00 Types: Cigarettes Smokeless tobacco: Never Used Substance and Sexual Activity Alcohol use: Never Frequency: Never Drug use: Never Sexual activity: Not on file Other Topics Concern Not on file Social History Narrative Not on file Family History Problem Relation Age of Onset Arthritis-rheumatoid Mother Stroke Mother Heart Attack Mother Cancer Mother Arthritis-rheumatoid Father Heart Attack Father Allergies: No Known Allergies Outpatient Medications as of 12/08/2018 Medication Sig Dispense Refill aspirin EC 81 mg tablet Take 81 mg by mouth daily. Take with food. atorvastatin (LIPITOR) 80 mg tablet Take 80 mg by mouth daily. clopiDOGrel (PLAVIX) 75 mg tablet Take 75 mg by mouth daily. lurasidone (LATUDA) 40 mg tablet Take 40 mg by mouth at bedtime daily. naproxen (NAPROSYN) 500 mg tablet Take 500 mg by mouth twice daily as needed . Take with food. Review of Systems: Musculoskeletal:positive for bone pain Blood pressure (!) 143/98, pulse 69, temperature 36.7 C (98.1 F), height 177 .8 cm (70"), weight 85.7 kg (188 lb 15 oz), SpO2 96 %. Physical Exam: On evaluation of the patients right wrist, he has pain at the radial styloid and snuffbox. 40 degrees of wrist extension. Perhaps 60 degrees of wrist flexi on. There is painful crepitation with these maneuvers, particularly with radial to ulnar deviation. Composite finger flexion the palm. His fingers are well p erfused. Lab/Radiology/Other Diagnostic Tests: Radiographs: CBC w/Diff No results found for: WBC, HGB, HCT, PLTCT Basic Metabolic Profile No results found for: NA, K, CL, CO2, GAP, BUN, CR, GLU Coagulation Studies No results found for: PT, PTT, INR Georgie Benedict PA-C documented in this encounter Miscellaneous Notes * Procedures (Immed Post or Bedside) - Georgie Benedict PA-C - 12/08/2018 10:22 AM CDT Brief Operative Note Name: Ryan Sorto is a 58 y.o. male : 1960 DATE OF OPERATION: 12/08/2018 Date: 12/08/2018 Preoperative Dx: Arthritis of right wrist [M19.031] Post-op Diagnosis * Arthritis of right wrist [M19.031] Procedure(s) (LRB): RIGHT SCAPHOIDECTOMY, FOUR CORNER FUSION (Right) Anesthesia Type: General Surgeon(s) and Role: * Elvin Voss MD - Primary * Georgie Benedict PA-C - Assisting * Kavon Ma - Resident - Assisting Findings: Wrist arthritis Estimated Blood Loss: No blood loss documented. Specimen(s) Removed/Disposition: * No specimens in log * Complications: Hematoma Implants: k-wires x 4 Drains: None Disposition: PACU - stable Georgie Benedict PA-C Pager [phone] * Operative Report (Direct Entry) - Elvin Voss MD - 12/08/2018 9:25 AM CDT OPERATIVE REPORT Name: Ryan Sorto is a 58 y.o. male : 1960 DATE OF OPERATION: 12/08/2018 Primary Surgeon: Elvin Voss MD Industrial Relations Worker(s): Kavon Ma MD Preoperative Diagnosis: #1 SNAC, right wrist Postoperative Diagnosis: #1 SNAC arthritis, right wrist Operative Procedure: #1 Scaphoidectomy and four corner fusion, right Anesthesia: MAC with preoperative axillary block Description and Findings of Operative Procedure: After informed consent had been obtained, the patient was transported to the OR. The patient had received a preoperative axillary block. The patient was transf erred supine to the operating table and sedated. The operative upper extremity w as positioned on a hand table. The operative arm was sterilely prepped and drape d in a standard fashion. An operative pause was conducted to confirm correct pat ient, side, site, and procedure. I confirmed that my initials were present on th e operative extremity. The patient received IV cefazolin for antimicrobial proph ylaxis. The anticipated incision was marked over the dorsal wrist inline with th e third metacarpal. The arm was then exsanguinated with an Esmarch bandage and t he tourniquet inflated to 250 mmHg. The skin was incised. We dissected through t he subcutaneous tissue under 4.0 loupe magnification. Dorsal sensory branches of the ulnar and radial nerves were identified and protected as we elevated them w ith the subcutaneous fat. The EPL tendon was identified distal to the extensor retinaculum and the third compartment opened. Retinacular flaps were then create d into the fourth and second compartments. The extensor tendons were retracted. The PIN was identified and a neurectomy performed in a crush/cut/coagulate seq uence. A distal segment of the nerve was excised. The dorsal wrist capsule was t hen opened utilizing a ligamentous sparing capsulotomy. 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 The radiolunate articular cartilage was in good condition. The scaphoid was resected. We then turned our attention to the midcarpal preparation. Any re maining cartilage was removed with a curette and rongeur. The lunotriquetral an d capitohamate ligaments were intact and preserved. A high speed greta was then u sed to complete our bony preparation while carefully irrigating. We then turned our attention to harvest of cancellous bone graft from the distal radius. A cor ticotomy was created with a high speed greta just proximal to Rick's tubercle. Curettes were then used to harvest cancellous bone graft from the distal radius. The bone graft was set aside. The wrist was then flexed and the lunate brought into a neutral position. It was then pinned to the radius with a k-wire. The capitate was then carefully reduce d onto the lunate and we confirmed appropriate positioning under biplanar fluoro scopy. The midcarpal positioning was then secured with 1.25mm k-wires and approp riate positioning confirmed with biplanar fluoroscopy. Bonegraft was packed into the midcarpal joint. The radiocarpal k-wire was removed. The wrist was taken th rough range of motion. The stability of the construct was good. The dorsal caps ule and extensor retinaculum were then repaired with interrupted 3-0 vicryl. The EPL tendon was left transposed. The tourniquet was then released. Hemostasis wa s obtained with bipolar electrocautery and direct pressure. A TLS drain was inse rted. The wound was thoroughly irrigated with normal saline. Skin was reapproxim ated with interrupted 4-0 Prolene in horizontal mattress fashion. A sterile dry dressing of Xeroform and 4 x 4's was applied followed by a well molded and padde d volar wrist splint. The patient recovered from anesthesia having tolerated the procedure well. They were transferred to the PACU in stable condition. There we re no immediate complications. Estimated Blood Loss: Minimal Specimens Removed: None Tourniquet Time: 54 minutes Attestation: I was present for the entire procedure and performed all technical aspects with the assistance of Dr. Ma, orthopedic resident. Elvin Voss MD Pager [phone] documented in this encounter Plan of Treatment Date/Time Name Type Priority Associated Diag noses 12/08/2018 7:30 AM CDT POC ANES US GUIDED NERVE Imaging Routine BLOCK 12/08/2018 8:29 AM CDT POC ANES US GUIDED NERVE Imaging Routine BLOCK Order Schedule Name Type Priority Associated Diag noses ONE TIME for 1 Occurrences starting 11/21 until 12/08/2018 POC ANES US GUIDED NERVE Imaging Routine BLOCK ONE TIME for 1 Occurrences starting 11/21 until 12/08/2018 POC ANES US GUIDED NERVE Imaging Routine BLOCK ONE TIME for 1 Occurrences starting 11/21 until 12/08/2018, 1 completed FLUORO MINI C-ARM IN OR Imaging Routine documented as of this encounter Procedures Comments Procedure Name Priority Date/Time Associated Diag nosis FLUORO MINI C-ARM IN OR Routine 12/08/2018 9:43 AM CDT ARTHRODESIS WRIST WITH 12/08/2018 Arthritis of r ight wrist ILIAC/ OTHER AUTOGRAFT 9:00 AM CDT HC CBC,AUTOMATED Routine 12/08/2018 Peripheral va scular 8:22 AM CDT disease (HCC) HC BASIC METABOLIC PANEL Routine 12/08/2018 Perip heral vascular 8:22 AM CDT disease (HCC) TELEMETRY STRIPS-SCAN 12/08/2018 12:00 AM CDT documented in this encounter Results * FLUORO MINI C-ARM IN OR (12/08/2018 9:43 AM CDT) Specimen Narrative Performed At This order has been auto finalized and does not conta in a result. [facility] Performing Organization Address City/[facility] Ph one Number [facility] * CBC (12/08/2018 8:22 AM CDT) White Blood 6.8 4.5 - 11.0 K/UL [facility] Cells RBC 5.09 4.4 - 5.5 M/UL [facility] Hemoglobin 15.4 13.5 - 16.5 GM/DL [facility] Hematocrit 45.5 40 - 50 % [facility] MCV 89.5 80 - 100 FL [facility] MCH 30.3 26 - 34 PG [facility] MCHC 33.9 32.0 - 36.0 G/DL [facility] RDW 13.3 11 - 15 % [facility] Platelet Count 268 150 - 400 K/UL [facility] MPV 7.5 7 - 11 FL [facility] Specimen Blood Performing Organization Address City/State/[facility] Ph one Number [facility] [address] [place] [address] * BASIC METABOLIC PANEL (12/08/2018 8:22 AM CDT) Sodium 137 137 - 147 MMOL/L [facility] Potassium 4.0 3.5 - 5.1 MMOL/L [facility] Chloride 103 98 - 110 MMOL/L [facility] CO2 25 21 - 30 MMOL/L [facility] Anion Gap 9 3 - 12 [facility] Glucose 93 70 - 100 MG/DL [facility] Blood Urea 21 7 - 25 MG/DL [facility] Nitrogen Creatinine 0.78 0.4 - 1.24 MG/DL [facility] Calcium 9.3 8.5 - 10.6 MG/DL [facility] eGFR Non >60 >60 mL/min [facility] Comment: [place] The eGFR is not validated f or use in drug dosing adjustments. Continue to use estimated creatinine clearance per dosing reference text. Please contact the Clinical Pharmacist for questions. eGFR >60 >60 mL/min [facility] [place] Comment: The eGFR is not validated for use in drug dosing adjustments. Continue to use estimated creatinine clearance per dosing reference text. Please contact the Clinical Pharmacist for questions. Specimen Blood Performing Organization Address City/State/Zipcode Ph one Number [facility] [address] [place] [address] * TELEMETRY STRIPS-SCAN (12/08/2018 12:00 AM CDT) Narrative Performed At This result has an attachment that is n ot available. Ordered by an unspecified provider. documented in this encounter Visit Diagnoses Diagnosis Arthritis of right wrist Unspecified arthropathy, forearm documented in this encounter Administered Medications Action Date Dose Rate Site Medication Order MAR Action 12/08/2018 8:23 AM CDT 650 mg acetaminophen (TYLENOL) tablet 650 mg Given 650 mg, Oral, ONCE, 1 dose, Tue 9 at 0815, To be given pre-op with a sip of water immediately upon arrival to [facility] (>30 minutes prior to scheduled surgery time). TOTAL ACETAMINOPHEN DOSE NOT TO EXCEED 4 GM DAILY., Pre-Op fentaNYL citrate PF (SUBLIMAZE) injection 25 mcg 25 mcg, Intravenous, EVERY 5 MIN PRN, Starting Tue12/08/18 at 1034, Until Fr i 12/08/18 at 1405, Pain Injectable, For Pain Score < 4, Maximum total dose of 200 mcg Hold for RR < 10, PACU (only) fentaNYL citrate PF (SUBLIMAZE) injection 50 mcg 50 mcg, Intravenous, EVERY 5 MIN PRN, Starting 12/08/18 at 1034, Until Fr i 12/08/18 at 1405, Pain Injectable, For Pain Score 4-6, Maximum total dose 200 mcg Hold if RR < 10, PACU (only) HYDROmorphone injection (DILAUDID) 0.5- 1 mg 0.5-1 mg, Intravenous, EVERY 10 MIN PRN , Starting 12/08/18 at 1034, Until Fr i 12/08/18 at 1405, Pain Injectable, For Pain Score 7-10, Maximum total dose of 2 mg Hold for RR <10, PACU (only) 12/08/2018 8:52 AM CDT lactated ringers infusion Given - New 1,000 mL, 1,000 mL, Intravenous, at 20 Bag mL/hr, CONTINUOUS, Starting Tue 9 at 0815, Until 12/08/18 at 1405, Pre-Op 1,000 mL 20 mL/hr Given - New Bag 12/08/2018 8:24 AM CDT ondansetron (ZOFRAN) injection 4 mg 4 mg, Intravenous, ONCE PRN, 1 dose, Starting 12/08/18 at 1034, Until Fr i 12/08/18 at 1405, Other..., nausea/vomiting, First line agent., DO NOT ADMINISTER if given within the last six hours., PACU (only) oxyCODONE (ROXICODONE) tablet 5-10 mg 5-10 mg, Oral, ONCE PRN, 1 dose, Starting 12/08/18 at 1034, Until Fr i 12/08/18 at 1405, Pain PO, For Pain Score <4, PACU (only) documented in this encounter
--- OUTSIDE RECORDS SUMMARY | 2019-05-27 20:02 | XMS REPORT | Encounter Summary ---
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 [M19.031] P rocedures [place] REMOVAL IMPLANT DEEP RIGHT WRIST BURIED PIN REMOVAL Encounter Details Care Team Description Date Type Department Trip Morillo MD [id number] [place] [address] [phone] Amairani Ellis MD [address] [place] [address] [phone] 02/09/2019 Anesthesia [facility] OR [address] [address] Anesthesia Record Responsible Anesthesiologist Anesthesia Start Time Anesthesi a Stop Time Procedure Name Trip Morillo MD 02/09/19 1155 02/09/19 1254 RIGHT WRIST BURIED PIN REMOVAL (Right ) Date Time Event Comment 1014 AN Equip Check 2018 1026 1053 In Room 1154 Out of Pre Procedure 1155 Anes Start 1155 An Start Data 1159 An Induction The patient was ree valuated immediately before moderate or deep sedation use and before anesthesia induction. 1200 An Intubation 1210 Anesthesia Ready 1210 Antibiotic Given 1217 An Tourn RUE at 250 mm Hg Inflated 1218 Proc Start 1233 An Tourn Deflated 1244 An Extubation 1252 an stop data 1254 Handoff to RN I completed my SBAR handoff to the receiving nurse. 1254 An Stop Meds Name Total midazolam (VERSED) 1 mg/mL injection 2 mg fentaNYL PF (SUBLIMAZE) injection 175 mcg lidocaine (2%) 200 mg/10mL Injection 100 mg syringe propofol (DIPRIVAN) 200 mg/ 20 mL 200 mg injection (VIAL) ondansetron (ZOFRAN) injection 4 mg dexamethasone (DECADRON) 4 mg/mL 4 mg injection phenylephrine (SILVER-SYNEPHRINE) 0.1 mg/mL 100 mcg injection (SYRINGE) dextran 70/hypromellose (GENTEAL TEARS; 2 drop BION TEARS) ophthalmic solution ceFAZolin (ANCEF) injection 2 g ePHEDrine injection 10 mg glycopyrrolate (ROBINUL) 0.2mg/mL 0.2 mg injection ketorolac (TORADOL) 30 mg injection IV 30 mg lactated ringers infusion 1,000 mL * Name O2 N2O Inspired N2O Sevoflurane Inspired Sevoflurane * No blood administrations on file. Removal Type Details Placement Wounds 12/08/18; 1021; Hand; Surgical Incision 12/08/18 1021 by Coleen, (NOT for BRANDIE Shrestha Pressure Injuries) Wounds 02/09/19; 1229; Wrist; Surgical Incisio n 02/09/19 1229 by Carlos, (NOT for Vick Pressure Injuries) 02/09/19 1427 by Yamil Mazariegos RN Peripheral 02/09/19; 0955; RN; L; Inner; Forearm; 02/09/19 0955 by IV 18 G; No; N/A; 1; 02/09/19; 1427 Martha Marmolejo RN 02/09/19 1244 by Elena Guadarrama CRNA [place] 02/09/19; 1200; Mask ventilation not 1 04/12/18 1200 by raeann Morillo Airway attempted (0); LMA; 5; 1 insertion Allen Herndon MD attempt; Auscultation, End-tidal CO2; atraumatic intubation; dentition remain s intact; 02/09/19; 1244 documented in this encounter Social History Date Tobacco Use Types Packs/Day Years Used Current Every Day Smoker Cigarettes 0.5 40 Smokeless Tobacco: Never Used Comments: 10 smokes a day Drinks/Week oz/Week Comments Alcohol Use Never Alcohol [...] history available. documented as of this encounter OR Notes * Anesthesia Postprocedure Evaluation - Lalo Lozada MD - 02/09/2019 2:34 PM EVP SALES Post-Anesthesia Evaluation Name: Ryan Sorto : 1960 Age: 58 y.o . Sex: male Procedure Date: 02/09/2019 Procedure(s) (LRB): RIGHT WRIST BURIED PIN REMOVAL (Right) Surgeon: Surgeon(s): Elvin Voss MD Watts, Jennafer A, PA-C Post-Anesthesia Vitals BP: 124/88 (02/09 1415) Pulse: 60 (02/09 1415) Respirations: 13 PER MINUTE (02/09 1415) SpO2: 94 % (02/09 1415) SpO2 Pulse: 66 (02/09 1415) Vitals Value Taken Time BP 124/88 02/09/2019 2:15 PM Temp Pulse 60 02/09/2019 2:15 PM Respirations 13 PER MINUTE 02/09/2019 2:15 PM SpO2 94 % 02/09/2019 2:15 PM Post Anesthesia Evaluation Note Evaluation location: Pre/Post Patient participation: recovered; patient participated in evaluation Level of consciousness: alert Pain score: 0 Pain management: adequate Hydration: normovolemia Temperature: 36.0C - 38.4C Airway patency: adequate Perioperative Events Post-op nausea and vomiting: no PONV Postoperative Status Cardiovascular status: hemodynamically stable Respiratory status: spontaneous ventilation Follow-up needed: none Perioperative Events Perioperative Event: No Emergency Case Activation: No SALES * Anesthesia Preprocedure Evaluation - Aileen Moreau MD - 02/09/2019 10:21 AM EVP SALES Anesthesia Pre-Procedure Evaluation Name: Ryan Sorto : 1960 Age: 58 y.o . Sex: male Procedure Date: 02/09/2019 Procedure: Procedure(s): RIGHT WRIST BURIED PIN REMOVAL Physical Assessment Vital Signs (last filed in past 24 hours): BP: 135/89 (02/10 932) Temp: 36.6 C (97.9 F) (02/10 932) Pulse: 71 (02/10 932) Respirations: 21 PER MINUTE (02/10 932) SpO2: 97 % (02/10 932) Height: 177.8 cm (70") (02/10 932) Weight: 85.2 kg (187 lb 13.3 oz) (02/10 932) Patient History No Known Allergies Current Medications Medication Directions amLODIPine (NORVASC) 5 mg tablet Take 5 mg by mouth daily. aspirin EC 81 mg tablet Take 81 mg by mouth daily. Take with food. atorvastatin (LIPITOR) 80 mg tablet Take 80 mg by mouth daily. clopiDOGrel (PLAVIX) 75 mg tablet Take 75 mg by mouth daily. cyclobenzaprine (FLEXERIL) 10 mg tablet Take 10 mg by mouth three times daily as needed for Muscle Cramps. divalproex (DEPAKOTE ER) 500 mg ER tablet Take 500 mg by mouth twice daily. Take with food. fish oil- omega 3-DHA/EPA 300/1,000 mg capsule Take 1 capsule by mouth daily. HYDROcodone/acetaminophen (NORCO) 5/325 mg tablet Take one tablet to two tablets by mouth every 4 hours as needed HYDROcodone/acetaminophen (NORCO) 5/325 mg tablet Take one tablet to two tablets by mouth every 4 hours as needed for Pain hydrOXYzine (ATARAX) 25 mg tablet Take 25 mg by mouth three times daily. lisinopril-hydrochlorothiazide (PRINZIDE, ZESTORETIC) 20-12.5 mg tablet Take 1 t ablet by mouth every morning. lurasidone (LATUDA) 40 mg tablet Take 40 mg by mouth at bedtime daily. naproxen (NAPROSYN) 500 mg tablet Take 500 mg by mouth twice daily as needed. Ta ke with food. Medical History: Diagnosis Date Anxiety Arthritis Back pain Bipolar disorder (HCC) Bleeding disorder (HCC) Deep vein thrombosis (DVT) (HCC) ~2017 right lower extremity Depression Hyperlipidemia Hypertension Myocardial infarction (HCC) x3 Surgical History: Procedure Laterality Date RIGHT SCAPHOIDECTOMY, FOUR CORNER FUSION Right 12/08/2018 Performed by Elvin Voss MD at Main OR/Periop HX APPENDECTOMY VASCULAR SURGERY stent right lower extremity VASECTOMY Social History Tobacco Use Smoking status: Current Every Day Smoker Packs/day: 0.50 Years: 40.00 Pack years: 20.00 Types: Cigarettes Smokeless tobacco: Never Used Tobacco comment: 10 smokes a day Substance Use Topics Alcohol use: Never Frequency: Never Drug use: Never Review of Systems/Medical History Patient summary reviewed Nursing notes reviewed Pertinent labs reviewed PONV Screening: Postoperative opioids No history of anesthetic complications No family history of anesthetic complications Pulmonary Current smoker; patient smoked on day of surgery No recent URI No shortness of breath No sleep apnea Cardiovascular Recent diagnostic studies: ECG Exercise tolerance: >4 METS Beta Marc therapy: No Beta blockers within 24 hours: No Hypertension, well controlled Past HI (x3, last in 2004, no angina since then ), > 6 months No PTCA No palpitations No dysrhythmias No angina PVD (stents x 2 in right SFA to pop) Hyperlipidemia GI/Hepatic/Renal No hx of liver disease No renal disease Neuro/Psych No seizures No CVA No chronic opioid use No chronic benzodiazepine use Psychiatric history Bipolar disorder Musculoskeletal Back pain Arthritis Endocrine/Other No hypothyroidism No hyperthyroidism Not obese Physical Exam Airway Findings Mallampati: III TM distance: >3 FB Neck ROM: full Mouth opening: good Airway patency: adequate Dental Findings: Upper dentures and poor dentition Cardiovascular Findings: Negative Rhythm: regular Rate: normal No murmur, no peripheral edema Pulmonary Findings: Wheezes. Abdominal Findings: Not obese Neurological Findings: Alert and oriented x 3 Normal mental status Constitutional findings: No acute distress Well-developed Well-nourished Diagnostic Tests Hematology: Lab Results Component Value Date HGB 15.4 12/08/2018 HCT 45.5 12/08/2018 PLTCT 268 12/08/2018 WBC 6.8 12/08/2018 MCV 89.5 12/08/2018 MCH 30.3 12/08/2018 MCHC 33.9 12/08/2018 MPV 7.5 12/08/2018 RDW 13.3 12/08/2018 General Chemistry: Lab Results Component Value Date NA 137 12/08/2018 K 4.0 12/08/2018 CL 103 12/08/2018 CO2 25 12/08/2018 GAP 9 12/08/2018 BUN 21 12/08/2018 CR 0.78 12/08/2018 GLU 93 12/08/2018 CA 9.3 12/08/2018 Coagulation: No results found for: PT, PTT, INR Anesthesia Plan ASA score: 3 Plan: general Induction method: intravenous NPO status: acceptable Informed Consent Anesthetic plan and risks discussed with patient. Use of blood products discussed with patient Blood Consent: consented Plan discussed with: anesthesiologist and LOADER MAGAZINE GRINDER. Addendum (11/24/2018): Dr. Rebolledo OVN 02/17/2018-seen for f/u PVD, nonobstructive carotid artery stenosi s, HTN, HLD. No changes made at this appt Nuclear Medicine CV study 09/29/2016: Lexiscan: Patient tolerated well. No ischemia or infarction on SPECT images. N ormal left ventricular size with normal contractility. EF 72% Echocardiogram 09/27/2016: LV cavity size is normal, wall thickness normal. Systolic function normal, no re gional wall motion abnormalities. Doppler parameters are consistent with abnorm al LV relaxation (grade 1 diastolic dysfunction). EF 55-60% Carotid US 04/07/2017: Right and Left: Mild, 1-39 % stenosis. Nonobstructive disease Lower Arterial 04/07/2017: Normal DAVID EKG 03/09/2017: SR rate 85bpm, multiple premature ventricular complexes Vascular OVN 07/04/2018: pt seen for c/o leg pain. Dr. Aguila reviewed CTA imag ing. Does not appear to be a vascular cause for patient's knee/leg pain. Will refer to orthopedics for further evaluation of left knee as a possible causative factor for his ongoing left leg/knee pain. CTA Abd Aorta through abdomen, pelvis and both legs 06/08/2018: Impression: 1. A long segment right SFA-pop stent is patent, and there is chronic appearing right LAMBERTO occlusion. 2. Left leg arteries are widely patent 3. No acute process or significant change from 05/23/2018 vascular lab ultrasoun d 4. 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 5. Renal cysts, diverticulosis, and numerous other chronic finding above. SALES documented in this encounter Plan of Treatment Not on filedocumented as of this encounter Visit Diagnoses Not on filedocumented in this encounter Administered Medications Action Date Dose Rate Site Medication Order MAR Action 02/09/2019 12:10 PM EVP SALES 2 g ceFAZolin (ANCEF) injection Given INTRA-PROCEDURE MED, Starting Tue02/09/19 at 1210, Until Tue02/09/19 at 1319, Anesthesia Intra-op 02/09/2019 12:06 PM EVP SALES 4 mg dexamethasone (DECADRON) injection Given Intravenous, INTRA-PROCEDURE MED, Starting 02/09/19 at 1206, Until Fr i 02/09/19 at 1319, Anesthesia Intra-op 02/09/2019 12:00 PM EVP SALES 2 drops dextran 70/hypromellose (GENTEAL TEARS) Given ophthalmic solution INTRA-PROCEDURE MED, Starting 02/09/19 at 1200, Until 02/09/19 at 1319, Anesthesia Intra-op 02/09/2019 12:20 PM EVP SALES 10 mg ePHEDrine injection Given INTRA-PROCEDURE MED, Starting Tue02/09/19 at 1220, Until 02/09/19 at 1319, Anesthesia Intra-op 02/09/2019 12:30 PM EVP SALES 25 mcg fentaNYL citrate PF (SUBLIMAZE) Given injection INTRA-PROCEDURE MED, Starting Tue02/09/19 at 1202, Until 02/09/19 at 1319, Anesthesia Intra-op 50 mcg Given 02/09/2019 12:16 PM EVP SALES 100 mcg Given 02/09/2019 12:02 PM EVP SALES 02/09/2019 12:27 PM EVP SALES 0.2 mg glycopyrrolate (ROBINUL) injection Given INTRA-PROCEDURE MED, Starting Tue02/09/19 at 1227, Until 02/09/19 at 1319, Anesthesia Intra-op 02/09/2019 12:36 PM EVP SALES 30 mg ketorolac (TORADOL) injection Given INTRA-PROCEDURE MED, Starting Tue02/09/19 at 1236, Until 02/09/19 at 1319, Anesthesia Intra-op 02/09/2019 11:59 AM EVP SALES 100 mg lidocaine (PF) injection Given INTRA-PROCEDURE MED, Starting Tue02/09/19 at 1159, Until Tue02/09/19 at 1319, Anesthesia Intra-op 02/09/2019 11:55 AM EVP SALES 2 mg midazolam (VERSED) injection Given Intravenous, INTRA-PROCEDURE MED, Starting Tue02/09/19 at 1155, Until Fr i 02/09/19 at 1319, Anesthesia Intra-op 02/09/2019 12:36 PM EVP SALES 4 mg ondansetron (ZOFRAN) injection Given Intravenous, INTRA-PROCEDURE MED, Starting Tue02/09/19 at 1236, Until Fr i 02/09/19 at 1319, Anesthesia Intra-op 02/09/2019 12:05 PM EVP SALES 100 mcg phenylephrine in NS injection syringe Given Intravenous, INTRA-PROCEDURE MED, Starting Tue02/09/19 at 1205, Until Fr i 02/09/19 at 1319, Anesthesia Intra-op 02/09/2019 12:00 PM EVP SALES 80 mg propofol (DIPRIVAN) injection Given INTRA-PROCEDURE MED, Starting Tue02/09/19 at 1159, Until Tue02/09/19 at 1319, Anesthesia Intra-op 120 mg Given 02/09/2019 11:59 AM EVP SALES documented in this encounter
--- OUTSIDE RECORDS SUMMARY | 2019-05-27 20:02 | XMS REPORT | Encounter Summary ---
Author Author [facility] Organization [facility] Address Unknown Phone Unavailable Care Team Providers Care Torch Operator Name Role Phone Marielena Vasquez MD PCP Encounter Details Care Team Description Date Type Department Georgie Benedict PA-C [address] [facility] [address] [place] [id number] [phone] 02/09/2019 Prep for Case [facility] [address] [place] [address] Social History Date Tobacco Use Types Packs/Day [...]
--- OUTSIDE RECORDS SUMMARY | 2019-05-27 20:02 | XMS REPORT | Encounter Summary ---
Author Author [facility] Organization [facility] Address Unknown Phone Unavailable Care Team Providers Care Barrel Drum Cutter Name Role Phone Marielena Vasquez MD PCP Encounter Details Care Team Description Date Type Department Elvin Voss MD [address] [facility] [address] [place] [address] Arthritis of right wrist (Primary Dx) 02/09/2019 Prep for Case [facility] [address] [place] [address] Social History Date Tobacco Use [...] filedocumented as of this encounter Visit Diagnoses Diagnosis Arthritis of right wrist Unspecified arthropathy, forearm documented in this encounter
--- OUTSIDE RECORDS SUMMARY | 2019-05-27 20:02 | XMS REPORT | Encounter Summary ---
Author Author [facility] Organization [facility] Address Unknown Phone Unavailable Care Team Providers Care Rock Splitter Name Role Phone Marielena Vasquez MD PCP Reason for Visit * Auth/Cert Referred By Contact Referred To Contact Status Reason Specialty Diagnoses / Procedures Diagnoses Arthritis of right wrist Arthritis of right wrist [M19.031] P rocedures SC ARTHRODESIS WRIST W/ILIAC/OTHER AUTOGRAFT RIGHT SCAPHOIDECTOMY, FOUR CORNER FUSION Encounter Details Care Team Description Date Type Department Julia Mcbride MD [id number] [place] [address] [phone] Eleazar Gonzalez DO [address] [place] [address] [phone] 12/08/2018 Anesthesia [facility] [place] [address] [address] Anesthesia Record Responsible Anesthesiologist Anesthesia Start Time Anesthesi a Stop Time Procedure Name Julia Mcbride MD 12/08/18 0900 12/08/18 1044 RIGHT SCAPHOIDECTOMY, FOUR CORNER FUSION (Right ) Date Time Event Comment 846 2019 0848 AN Equip Check 0859 Out of Pre Procedure 0900 Anes Start 0900 An Start Data 0900 In Room 0901 Start Supplemental O2 0906 Anesthesia Ready 0925 Proc Start 0925 An Tourn 250mmhg per surgeon Inflated 1019 An Tourn TTT 54 min Deflated 1040 an stop data 1044 Handoff to RN I completed my SBAR handoff to the receiving nurse. 1044 An Stop Meds Name Total midazolam (VERSED) 1 mg/mL injection 2 mg bupivacaine (MARCAINE) 0.5% injection 15 mL mepivacaine PF (CARBOCAINE) 1.5 % 15 mL injection fentaNYL PF (SUBLIMAZE) injection 125 mcg lidocaine PF 1% (10 mg/mL) injection 2 mL propofol (DIPRIVAN) infusion 760.16 mg ketamine (KETALAR) 10 mg/mL injection 30 mg ceFAZolin (ANCEF) injection 2 g ePHEDrine 50 mg/mL 50 mg in sodium 30 mg chloride PF 0.9% 5 mL IV syringe lactated ringers infusion 800 mL * Name O2 N2O Inspired N2O * No blood administrations on file. Removal Type Details Placement Wounds 12/08/18; 1021; Hand; Surgical Incision 12/08/18 1021 by Coleen, (NOT for BRANDIE Shrestha Pressure Injuries) 12/08/18 1139 by Chiquita Wilkinson RN Peripheral 12/08/18; 0825; RN; L; Hand; 20 G; 0825 by Tao, IV 12/08/18; 1139 BRANDIE Maria 12/08/18 1135 by Chiquita Wilkinson RN TLS Drain 12/08/18; 1044; Right; Arm; 12/08/18; 12/08/18 1044 by Minh, 1135 BRANDIE Porras documented in this encounter Social History Date [...] OR Notes * Anesthesia Postprocedure Evaluation - Amairani Ellis MD - 12/08/2018 11:40 AM CDT Post-Anesthesia Evaluation Name: Ryan Sorto : 1960 Age: 58 y.o . Sex: male Procedure Date: 12/08/2018 Procedure: Procedure(s) with comments: RIGHT SCAPHOIDECTOMY, FOUR CORNER FUSION - CASE LENGTH 1 HOUR Surgeon: Surgeon(s): Elvin Voss MD Grote, Caleb Watts, Jennafer A, PA-C Post-Anesthesia Vitals BP: 130/72 (12/08 1115) Temp: 36 C (96.8 F) (12/08 1044) Pulse: 63 (12/08 1115) Respirations: 12 PER MINUTE (12/08 111) SpO2: 97 % (12/08 1115) SpO2 Pulse: 62 (12/08 111) Post Anesthesia Evaluation Note Evaluation location: Pre/Post Patient participation: recovered; patient participated in evaluation Level of consciousness: alert Pain score: 0 Pain management: adequate Hydration: normovolemia Temperature: 36.0C - 38.4C Airway patency: adequate Regional/Neuraxial: Neurological status: sensory deficit Single injection shot performed Perioperative Events Post-op nausea and vomiting: no PONV Postoperative Status Cardiovascular status: hemodynamically stable Respiratory status: spontaneous ventilation Follow-up needed: none Perioperative Events Perioperative Event: No Emergency Case Activation: No Associated attestation - Trip Morillo MD - 12/08/2018 3:58 PM CDT ATTESTATION I reviewed the current evaluation and agree that the appropriate post-anesthetic care was administered and that the patient meets requirement for discharge from the post-anesthetic care unit. Staff name: Dario Morillo MD Date: 12/08/2018 * Anesthesia Procedure Notes - Eleazar Gonzalez DO - 12/08/2018 8:42 AM CDT Associated Order(s): PERIPHERAL NERVE BLOCK Anesthesia Procedure: Peripheral Nerve Block PERIPHERAL NERVE BLOCK Date/Time: 12/08/2018 8:32 AM Patient location: pre-op Reason for block: at surgeon's request and post-op pain management Preprocedure checklist performed: 2 patient identifiers, risks & benefits discussed, patient evaluated, timeout performed, consent obtained, patient being monitored and sterile drape Sterile technique: - Proper hand washing - Cap, mask - Sterile gloves - Skin prep for antisepsis Peripheral Nerve Block Procedure Patient position: supine Prep: ChloraPrep Monitoring: BP, EKG and continuous pulse ox Block type: supraclavicular Laterality: right Injection technique: single-shot Procedures: ultrasound guided Ultrasound image captured Needle/cathether: Needle type: Stimuplex Needle gauge: 22 G; Needle length: 4 in Needle location: anatomical landmarks and ultrasound guidance Procedure Medications Sedation: midazolam (VERSED) 1 mg/mL injection, 2 mg fentaNYL PF (SUBLIMAZE) injection, 100 mcg Local Anesthesia: lidocaine PF 1% (10 mg/mL) injection, 2 mL Bolus Dose: bupivacaine (MARCAINE) 0.5% injection, 15 mL mepivacaine PF (CARBOCAINE) 1.5 % injection, 15 mL Procedure Outcome Injection assessment: negative aspiration for heme, no paresthesia on injection, incremental injection and local visualized surrounding nerve on ultrasound Observations: adequate block, patient sedated but conversant throughout block, p atient tolerated the procedure well with no immediate complications and comforta ble throughout block Refer to nursing documentation for vitals and monitoring data during procedure. Performed by: Eleazar Gonzalez DO Authorized by: Julia Mcbride MD Associated attestation - Julia Mcbride MD - 12/08/2018 9:15 AM CDT ATTESTATION I was present during the entire procedure performed by a resident. Staff name: Julia Mcbride MD Date: 12/08/2018 * Anesthesia Preprocedure Evaluation - Julia Mcbride MD - 11/17/2018 8:31 AM CDT Anesthesia Pre-Procedure Evaluation Name: Ryan Sorto : 1960 Age: 58 y.o . Sex: male Procedure Date: 12/08/2018 Procedure: Procedure(s) with comments: RIGHT SCAPHOIDECTOMY, FOUR CORNER FUSION - CASE LENGTH 1 HOUR Physical Assessment Vital Signs (last filed in past 24 hours): BP: 143/98 (12/09 799) Temp: 36.7 C (98.1 F) (12/09 799) Pulse: 69 (12/09 799) Respirations: 18 PER MINUTE (12/09 799) SpO2: 96 % (12/09 799) Height: 177.8 cm (70") (12/09 799) Weight: 85.7 kg (188 lb 15 oz) (12/09 799) Patient History No Known Allergies Current Medications [...] Types: Cigarettes Smokeless tobacco: Never Used Substance Use Topics Alcohol use: Never Frequency: Never Drug use: Never Review of Systems/Medical History Patient summary reviewed Nursing notes reviewed Pertinent labs reviewed PONV Screening: Postoperative opioids No history of anesthetic complications No family history of anesthetic complications Pulmonary Current smoker; patient did not smoke on day of surgery No recent URI No shortness of breath No sleep apnea Cardiovascular Recent diagnostic studies: ECG Exercise tolerance: >4 METS Beta Marc therapy: No Beta blockers within 24 hours: No Hypertension, well controlled Past NV (x3, last in 2004, no angina since then ), > 6 months No PTCA No palpitations No dysrhythmias No angina PVD Hyperlipidemia GI/Hepatic/Renal No hx of liver disease No renal disease Neuro/Psych No seizures No CVA No chronic opioid use No chronic benzodiazepine use Psychiatric history Bipolar disorder Musculoskeletal Back pain Arthritis Endocrine/Other No hypothyroidism No hyperthyroidism Not obese Physical Exam Airway Findings Mallampati: III TM distance: >3 FB Neck ROM: full Mouth opening: good Airway patency: adequate Dental Findings: Upper dentures Cardiovascular Findings: Rhythm: regular Rate: normal No murmur, no peripheral edema Pulmonary Findings: Breath sounds clear to auscultation. No wheezes. Abdominal Findings: Not obese Neurological Findings: Alert and oriented x 3 Normal mental status Constitutional findings: No acute distress Well-developed Well-nourished Diagnostic Tests Hematology: Lab Results Component Value Date HGB 15.4 12/08/2018 HCT 45.5 12/08/2018 PLTCT 268 12/08/2018 WBC 6.8 12/08/2018 MCV 89.5 12/08/2018 MCH 30.3 12/08/2018 MCHC 33.9 12/08/2018 MPV 7.5 12/08/2018 RDW 13.3 12/08/2018 General Chemistry: No results found for: NA, K, CL, CO2, GAP, BUN, CR, GLU, CA, KETONES, ALBUMIN, LACTIC, OBSCA, MG, TOTBILI, TOTBILCB, PO4 Coagulation: No results found for: PT, PTT, INR Anesthesia Plan ASA score: 3 Plan: regional and MAC Induction method: intravenous NPO status: acceptable Informed Consent Anesthetic plan and risks discussed with patient. Use of blood products discussed with patient Blood Consent: consented Plan discussed with: anesthesiologist and PROGRAM SUPPORT SPECIALIST. Comments: (Surgeon requesting GETA, however given patient's cardiac and neurolog ic history, a MAC anesthetic with a regional block may be an alternative. Patien t is OK with both. Records requested from [facility] and PCP for recent labs a nd last TTE. EKG in clinic given cardiac history. ) Addendum (11/24/2018): Dr. 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 5. Renal cysts, diverticulosis, and numerous other chronic finding above. documented in this encounter Miscellaneous Notes * Addendum Note - Pedro Luis Ramirez CRNA - 12/08/2018 4:12 PM CDT Addendum created 12/08/18 1612 by Pedro Luis Ramirez CRNA Intraprocedure Flowsheets edited documented in this encounter Plan of Treatment Not on filedocumented as of this encounter Procedures Comments Procedure Name Priority Date/Time Associated Diag nosis ANESTHESIA PERIPHERAL Routine 12/08/2018 NERVE BLOCK 8:42 AM CDT documented in this encounter Results * PERIPHERAL NERVE BLOCK (12/08/2018 8:42 AM CDT) Narrative Performed At Eleazar Gonzalez DO 12/08/2018 8: 43 AM Anesthesia Procedure: Peripheral Nerve Block PERIPHERAL NERVE BLOCK Date/Time: 12/08/2018 8:32 AM Patient location: pre-op Reason for block: at surgeon's request and post-op pain management Preprocedure checklist performed: 2 pat ient identifiers, risks & benefits discussed, patient evaluated, timeout p erformed, consent obtained, patient being monitored and sterile drape Sterile technique: - Proper hand washing - Cap, mask - Sterile gloves - Skin prep for antisepsis Peripheral Nerve Block Procedure Patient position: supine Prep: ChloraPrep Monitoring: BP, EKG and continuous puls e ox Block type: supraclavicular Laterality: right Injection technique: single-shot Procedures: ultrasound guided Ultrasound image captured Needle/cathether: Needle type: Stimuplex Needle gauge: 22 G; Needle length: 4 in Needle location: anatomical landmark s and ultrasound guidance Procedure Medications Sedation: midazolam (VERSED) 1 mg/mL in jection, 2 mg fentaNYL PF (SUBLIMAZE) injection, 10 0 mcg Local Anesthesia: lidocaine PF 1% (10 m g/mL) injection, 2 mL Bolus Dose: bupivacaine (MARCAINE) 0.5% injection, 15 mL mepivacaine PF (CARBOCAINE) 1.5 % injec tion, 15 mL Procedure Outcome Injection assessment: negative aspirati on for heme, no paresthesia on injection, incremental injection and lo charles visualized surrounding nerve on ultrasound Observations: adequate block, patient s edated but conversant throughout block, patient tolerated the procedure well with no immediate complications and comfortable throughou t block Refer to nursing documentation for edgar ls and monitoring data during procedure. Performed by: Eleazar Gonzlaez DO Authorized by: Julia Mcbride MD documented in this encounter Visit Diagnoses Not on filedocumented in this encounter Administered Medications Action Date Dose Rate Site Medication Order MAR Action 12/08/2018 8:32 AM CDT 15 mL bupivacaine (MARCAINE) 0.5 % injection Given Block, Starting Tue12/08/18 at 0832, Until Tue12/08/18 at 0832, Anesthesia Intra-op 12/08/2018 9:17 AM CDT 2 g ceFAZolin (ANCEF) injection Given INTRA-PROCEDURE MED, Starting Tue12/08/18 at 0917, Until Tue12/08/18 at 1053, Anesthesia Intra-op 12/08/2018 10:17 AM CDT 10 mg ePHEDrine 50 mg/mL 50 mg in sodium Bolus chloride PF 0.9% 5 mL IV syringe 5 mL, INTRA-PROCEDURE MED(CONT), Starting Tue12/08/18 at 1005, Until Fr i 12/08/18 at 1053, Anesthesia Intra-op 10 mg Bolus 12/08/2018 10:12 AM CDT 5 mg Bolus 12/08/2018 10:09 AM CDT 12/08/2018 9:09 AM CDT 25 mcg fentaNYL citrate PF (SUBLIMAZE) Given injection Intravenous, Starting Tue12/08/18 at 0832, Until Tue12/08/18 at 0909, Anesthesia Intra-op 100 mcg Given 12/08/2018 8:32 AM CDT 12/08/2018 9:22 AM CDT 10 mg ketamine (KETALAR) injection Given INTRA-PROCEDURE MED, Starting Tue12/08/18 at 0904, Until Tue12/08/18 at 1053, Anesthesia Intra-op 10 mg Given 12/08/2018 9:09 AM CDT 10 mg Given 12/08/2018 9:04 AM CDT 12/08/2018 8:52 AM CDT lactated ringers infusion Given - New 1,000 mL, 1,000 mL, Intravenous, at 20 Bag mL/hr, CONTINUOUS, Starting Tue 9 at 0815, Until Tue12/08/18 at 1405, Pre-Op 1,000 mL 20 mL/hr Given - New Bag 12/08/2018 8:24 AM CDT 12/08/2018 8:32 AM CDT 2 mL lidocaine PF 1% (10 mg/mL) injection Given Subcutaneous, Starting Tue12/08/18 at 0832, Until Tue12/08/18 at 0832, Anesthesia Intra-op 12/08/2018 8:32 AM CDT 15 mL mepivacaine PF (CARBOCAINE) 15 mg/mL Given (1.5 %) injection Block, Starting Tue12/08/18 at 0832, Until Tue12/08/18 at 0832, Anesthesia Intra-op 12/08/2018 8:32 AM CDT 2 mg midazolam (VERSED) injection Given Intravenous, Starting Tue12/08/18 at 0832, Until Tue12/08/18 at 0832, Anesthesia Intra-op 12/08/2018 10:00 AM CDT 80 mcg/kg/min 41.1 mL/hr propofol (DIPRIVAN) infusion Dose/Rate 20 mL, Intravenous, INTRA-PROCEDURE Change MED(CONT), Starting Tue12/08/18 at 0904, Until Tue12/08/18 at 1053, Anesthesia Intra-op 90 mcg/kg/min 46.3 mL/hr Dose/Rate Change 12/08/2018 9:51 AM CDT 100 mcg/kg/min 51.4 mL/hr Dose/Rate Change 12/08/2018 9:31 AM CDT documented in this encounter
--- OUTSIDE RECORDS SUMMARY | 2019-05-27 20:02 | XMS REPORT | Encounter Summary ---
Author Author [facility] Organization [facility] Address Unknown Phone Unavailable Care Team Providers Care Hydro Mechanic Name Role Phone Marielena Vasquez MD PCP Encounter Details Care Team Description Date Type Department Elvin Voss MD [address] [facility] [address] [place] [id number] 12/08/2018 [facility] [address] [address] Social History Date Tobacco Use Types Packs/Day [...] IN OR Routine 12/08/2018 9:43 AM CDT documented in this encounter Results * FLUORO MINI C-ARM IN OR (12/08/2018 9:43 AM CDT) Specimen Narrative Performed At This order has been auto finalized and does not conta in a result. ESME LLANOS Performing Organization Address [facility] Number ESME LLAN[facility] documented in this encounter Visit Diagnoses Not on filedocumented in this encounter
--- OUTSIDE RECORDS SUMMARY | 2019-05-27 20:02 | XMS REPORT | Encounter Summary ---
Author Author [facility] Organization [facility] Address Unknown Phone Unavailable Care Team Providers Care Christian Ministries Professor Name Role Phone Marielena Vasquez MD PCP Encounter Details Care Team Description Date Type Department Georgie Benedict PA-C [address] [facility] [address] [place] [address] [phone] 12/21/2018 [facility] [address] [place] [id number] Social History Date Tobacco Use Types Packs/Day [...] twice daily as needed. Take with food. 12/13/2018 03/19/2019 HYDROcodone/acetaminophen Take one 20 tablet 0 (NORCO) 5/325 mg tablet tablet to two tablets by mouth every 4 hours as needed for Pain documented as of this encounter Plan of Treatment Not on filedocumented as of this encounter Procedures Comments Procedure Name Priority Date/Time Associated Diag nosis WRIST COMP MIN 3 VIEWS Routine 12/21/2018 Wrist a rthritis RIGHT 10:09 AM CDT documented in this encounter Results * WRIST COMP MIN 3 VIEWS RIGHT (12/21/2018 10:09 AM CDT) Specimen Right Impressions Performed At Findings/Impression: [facility] 1. Interval resection of the scaphoid . There has been interval 4 corner operative fusion with multiple crossing pins transfixing the capitate, lunate triquetrum and hamate. There is partial osseous incorporation for 4 corner operative fusion. 2. Bone donor site distal radius. 3. There are no fractures. Finalized by Everett Burgos M.D. on 12/21 11:00 AM. Dictated by Everett Burgos M.D. on 12/21/2018 10:59 AM. Narrative Performed At WRIST COMP MIN 3 VIEWS RIGHT [facility] Clinical Indication: status post wrist surgery. Comparison: November 09, 2018 Procedure Note Interface, Radiant Results - 12/21/2018 11:03 AM CDT WRIST COMP MIN 3 VIEWS RIGHT Clinical Indication: status post wrist surgery. Comparison: November 09, 2018 IMPRESSION Findings/Impression: 1. Interval resection of the scaphoid. There has been interval 4 corner operative fusion with multiple crossing pins transfixing the capitate, lunate triquetrum and hamate. There is partial osseous incorporation for 4 corner operative fusion. 2. Bone donor site distal radius. 3. There are no fractures. Finalized by Everett Burgos M.D. on 12/21/2018 11:00 AM. Dictated by Everett Burgos M.D. on 12/21/2018 10:59 AM. Performing Organization Address City/State/Zipcode Ph one Number [facility] documented in this encounter Visit Diagnoses Diagnosis Wrist arthritis Unspecified arthropathy, forearm documented in this encounter
--- OUTSIDE RECORDS SUMMARY | 2019-05-27 20:02 | XMS REPORT | Clinical Summary ---
Author Author [facility] Organization [facility] Address Unknown Phone Unavailable Care Team Providers Care Starchmaker Name Role Phone Marielena Vasquez MD PCP Source Comments Some departments are not documenting in the electronic medical record. If you d o not see the information that you expected, contact Release of Information in [facility] [employer] Information Management department at [phone] for further assistan ce in locating additional records.[facility] Allergies No Known Allergies Medications End Date Status Medication Sig Dispensed Refills Start Date Active aspirin EC 81 mg tablet Take 81 mg by 0 mouth daily. Take with food. Active atorvastatin (LIPITOR) 80 Take 80 mg by 0 mg tablet mouth daily. Active clopiDOGrel (PLAVIX) 75 Take 75 mg by 0 mg tablet mouth daily. Active lurasidone (LATUDA) 40 mg Take 40 mg by 0 tablet mouth at bedtime daily. Active naproxen (NAPROSYN) 500 Take 500 mg 0 mg tablet by mouth twice daily as needed. Take with food. Active divalproex (DEPAKOTE ER) Take 500 mg 0 500 mg ER tablet by mouth twice daily. Take with food. Active lisinopril-hydrochlorothi Take 1 tablet 0 azide (PRINZIDE, by mouth ZESTORETIC) 20-12.5 mg every tablet morning. Active amLODIPine (NORVASC) 5 mg Take 5 mg by 0 tablet mouth daily. Active hydrOXYzine (ATARAX) 25 Take 25 mg by 0 mg tablet mouth three times daily. Active fish oil- omega 3-DHA/EPA Take 1 0 300/1,000 mg capsule capsule by mouth daily. Active cyclobenzaprine Take 10 mg by 0 (FLEXERIL) 10 mg tablet mouth three times daily as needed for Muscle Cramps. Active HYDROcodone/acetaminophen Take one 5 tablet 0 (NORCO) 5/325 mg tablet tablet by 9 mouth every 4 hours as needed for Pain Active Problems Problem Noted Date Arthritis of right wrist 08/31/2018 Encounters Care Team Description Date Type Specialty Elvin Voss MD 03/19/2019 Hospital Radiology Encounter Elvin Voss MD Arthritis of right wrist (Primary Dx) 03/19/2019 Office Visit Orthopedic Surgery from Last 3 Months Family History Medical History Relation Name Comments Arthritis-rheumatoid Father Heart Attack Father Arthritis-rheumatoid Mother Cancer Mother Heart Attack Mother Stroke Mother Relation Name Status Comments Father Mother Social History Date Tobacco Use Types Packs/Day [...] Travel Start No recent travel history available. Last Filed Vital Signs Reading Time Taken Comments Vital Sign 135/76 02/22/2019 8:02 AM CERTIFIED JUVENILE PROBATION OFFICER Blood Pressure 82 02/22/2019 8:02 AM CERTIFIED JUVENILE PROBATION OFFICER Pulse 36.6 C (97.9 F) 02/09/2019 9:32 AM CERTIFIED JUVENILE PROBATION OFFICER Temperature - - Respiratory Rate 94% 02/09/2019 2:15 PM CERTIFIED JUVENILE PROBATION OFFICER Oxygen Saturation - - Inhaled Oxygen Concentration 84.8 kg (187 lb) 03/19/2019 10:17 AM CERTIFIED JUVENILE PROBATION OFFICER Weight 177.8 cm (5' 10") 03/19/2019 10:17 AM CERTIFIED JUVENILE PROBATION OFFICER Height 26.83 03/19/2019 10:17 AM CERTIFIED JUVENILE PROBATION OFFICER Body Mass Index Plan of Treatment Health Maintenance Due Date Last Done Comments HEPATITIS C SCREENING 1960 DTAP/TDAP VACCINES (1 - 02/14/1971 Tdap) HIV SCREENING 02/14/1975 PHYSICAL (COMPREHENSIVE) 02/14/1978 EXAM COLORECTAL CANCER 02/14/2010 SCREENING SHINGLES RECOMBINANT 02/14/2010 VACCINE (1 of 2) INFLUENZA VACCINE 09/22/2019 Implants Device Identifier Shelf Expiration Date Model / Serial / L ot Implanted Type Area Manufactur er 292.12 / NA / NA Wire Fixation 150mm 1.25mm Right: Hand DEPUY [employer] Sna Implanted: Qty: 4 on 12/08/2018 by Elvin Voss MD at [facility] Device Identifier Shelf Expiration Date Model / Serial / L ot Explanted Type Area Manufactur er / NA / NA Pins Right: Hand Explanted: Qty: 4 on 02/09/2019 at [facility] Description:NOT AVAILABLE IN EXPLANT Procedures Comments Procedure Name Priority Date/Time Associated Diag nosis WRIST COMP MIN 3 VIEWS Routine 03/19/2019 Arthrit is of right wrist RIGHT 10:31 AM CERTIFIED JUVENILE PROBATION OFFICER from Last 3 Months Results * WRIST COMP MIN 3 VIEWS RIGHT (03/19/2019 10:31 AM CERTIFIED JUVENILE PROBATION OFFICER) Specimen Right Impressions Performed At Findings/Impression: [facility] 1. Interval removal of transfixing pi ns for 4 corner operative fusion. There is good osseous fusion at the lunate ca pitate articulation and at least partial osseous fusion between the triquetrum a nd hamate. No visible osseous fusion between the lunate and the triquetrum. No definite osseous fusion between the capitate and the hamate. 2. Bone donor site distal radius. 3. Prior resection of the scaphoid. Finalized by Everett Bugros M.D. on 2019 11:43 AM. Dictated by Everett Burgos M.D. on 03/19/2019 11:25 AM. Narrative Performed At WRIST COMP MIN 3 VIEWS RIGHT [facility] Clinical Indication: RIGHT WRIST PAIN-S CHAPHOIDECTOMY FOUR CORNER FUSION IN JANUARY. Comparison: January 11, 2019 Procedure Note Interface, Radiant Results - 03/19/2019 11:47 AM CERTIFIED JUVENILE PROBATION OFFICER WRIST COMP MIN 3 VIEWS RIGHT Clinical Indication: RIGHT WRIST PAIN-SCHAPHOIDECTOMY FOUR CORNER FUSION IN JANUARY. Comparison: January 11, 2019 IMPRESSION Findings/Impression: 1. Interval removal of transfixing pins for 4 corner operative fusion. There is good osseous fusion at the lunate capitate articulation and at least partial osseous fusion between the triquetrum and hamate. No visible osseous fusion between the lunate and the triquetrum. No definite osseous fusion between the capitate and the hamate. 2. Bone donor site distal radius. 3. Prior resection of the scaphoid. Finalized by Everett Burgos M.D. on 03/19/2019 11:43 AM. Dictated by Everett Burgos M.D. on 03/19/2019 11:25 AM. Performing Organization Address City/State/Zipcode Ph one Number [facility] RESULTS from Last 3 Months Insurance Type Payer Benefit Subscriber ID Effective Phone Address Plan / Dates Group Medicaid [facility] MEDICAID [facility] xxxxxxxxxxx [id number] COMMUNITY [place]AN [place] Advance Directives Patient Dock Boss Explanation Type Date Recorded Advance 11/17/2018 9:08 AM Directive/DPOA
--- OUTSIDE RECORDS SUMMARY | 2019-05-27 20:02 | XMS REPORT | Encounter Summary ---
Author Author [facility] Organization [facility] Address Unknown Phone Unavailable Care Team Providers Care Chemical Process Engineer Name Role Phone Marielena Vasquez MD PCP Reason for Visit * Reason Comments Post-op Right wrist Encounter Details Care Team Description Date Type Department Elvin Voss MD [address] [facility] [address] [place] [address] [phone] Arthritis of right wrist (Primary Dx) 03/19/2019 Office Visit [facility] [address] [place] [phone] Social History Date Tobacco Use Types Packs/Day [...] Signs Reading Time Taken Comments Vital Sign - - Blood Pressure - - Pulse - - Temperature - - Respiratory Rate - - Oxygen Saturation - - Inhaled Oxygen Concentration 84.8 kg (187 lb) 03/19/2019 10:17 AM SYNCHRONOUS MOTOR ASSEMBLER Weight 177.8 cm (5' 10") 03/19/2019 10:17 AM SYNCHRONOUS MOTOR ASSEMBLER Height 26.83 03/19/2019 10:17 AM SYNCHRONOUS MOTOR ASSEMBLER Body Mass Index documented in this encounter Progress Notes * Elvin Voss MD - 03/19/2019 10:50 AM SYNCHRONOUS MOTOR ASSEMBLER Subjective: Mr. Sorto returns to clinic now more than three months postoperatively. His pins have been removed. He reports doing well until approximately two weeks ago when he began to have volar pain. He had been doing a lot of writing. No new numbness or tingling. Objective: Ortho Exam On evaluation of the patients right wrist, his wounds are all very nicely hea led. Wrist flexion 45 degrees, wrist extension 30 degrees. There is no signifi cant swelling. Negative Tinels at the carpal tunnel. Composite finger flexi on to the palm. His fingers are well perfused. IMAGING: X-rays were reviewed. The midcarpal joint seems to be well fused. Th e lunate fossa is nicely preserved. I reviewed with Mr. Sorto that I do not see any obvious problems with the wri st. He has questions about narcotic pain medications and I have suggested anti- inflammatory medications such as ibuprofen and Aleve. He will follow up as need ed. All of his questions were answered. Dictated by Elvin Voss MD and transcribed via ABC Local Superintendent. Copied and past ed into O2 by Shari Laguna, 03/22/2019 9:45 AM HRONOUS MOTOR ASSEMBLER documented in this encounter Plan of Treatment Not on filedocumented as of this encounter Results * WRIST COMP MIN 3 VIEWS RIGHT (03/19/2019 10:31 AM SYNCHRONOUS MOTOR ASSEMBLER) Specimen Right Impressions Performed At Findings/Impression: [facility] [...] scaphoid. Finalized by Everett Burgos M.D. on 2019 11:43 AM. Dictated by Everett Burgos M.D. on 03/19/2019 11:25 AM. Narrative Performed At WRIST COMP MIN 3 VIEWS RIGHT [facility] RESULTS Clinical Indication: RIGHT WRIST PAIN-S CHAPHOIDECTOMY FOUR CORNER FUSION IN JANUARY. Comparison: January 11, 2019 Procedure Note Interface, Radiant Results - 03/19/2019 11:47 AM SYNCHRONOUS MOTOR ASSEMBLER WRIST COMP MIN 3 VIEWS RIGHT Clinical [...]
--- OUTSIDE RECORDS SUMMARY | 2019-05-27 20:02 | XMS REPORT | Encounter Summary ---
Author Author [facility] Organization [facility] Address Unknown Phone Unavailable Care Team Providers Care Civil Attorney Name Role Phone Marielena Vasquez MD PCP Reason for Visit * Reason Comments Post-op Right wrist Encounter Details Care Team Description Date Type Department Elvin Voss MD 1999 [facility] [address] [place], [place] [phone] Arthritis of right wrist (Primary Dx) 01/11/2019 Office Visit [facility] [address] [place] [phone] Social History Date Tobacco Use Types Packs/Day [...] Oxygen Saturation - - Inhaled Oxygen Concentration 86.2 kg (190 lb) 01/11/2019 12:22 PM POSTDOCTORAL FELLOW Weight 177.8 cm (5' 10") 01/11/2019 12:22 PM POSTDOCTORAL FELLOW Height 27.26 01/11/2019 12:22 PM POSTDOCTORAL FELLOW Body Mass Index documented in this encounter Progress Notes * Elvin Voss MD - 01/11/2019 1:10 PM POSTDOCTORAL FELLOW Subjective: Mr. Sorto returns to clinic now five weeks postoperatively. He has some irri tation from the pins, but they all remain buried. Objective: Ortho Exam On evaluation of the patients right wrist, his wounds are nicely healed. Com posite finger flexion the palm. His wrist range of motion is reasonable for thi s point postop. IMAGING: X-rays were reviewed. One of his pins has backed up to some extent, b ut the alignment of the fusion seems very good. I reviewed with Mr. Sorto that I would like him to transition into a Velcro w rist splint. He will follow up in approximately four weeks for pin removal. Al natalya of his questions were answered. Dictated by Elvin Voss MD and transcribed via ABC Motor Racer. Copied and past ed into O2 by Mitzy Blunt, 01/17/2019 3:28 PM DOCTORAL FELLOW documented in this encounter Plan of Treatment Not on filedocumented as of this encounter Visit Diagnoses Diagnosis Arthritis of right wrist Unspecified arthropathy, forearm documented in this encounter
--- OUTSIDE RECORDS SUMMARY | 2019-05-27 20:02 | XMS REPORT | Encounter Summary ---
Author Author [facility] Organization [facility] Address Unknown Phone Unavailable Care Team Providers Care Pattern Grader Cutter Name Role Phone Marielena Vasquez MD PCP Encounter Details Care Team Description Date Type Department Elvin Voss MD [address] [facility] [address] [place] [address] [phone] 03/19/2019 [facility] [address] [employer] [address] [place] [phone] Social History Date Tobacco Use Types Packs/Day [...] 300/1,000 mg capsule capsule by mouth daily. 02/09/2019 HYDROcodone/acetaminophen Take one 5 tablet 0 (NORCO) 5/325 mg tablet tablet by mouth every 4 hours as needed for Pain hydrOXYzine (ATARAX) 25 Take 25 mg by 0 mg tablet mouth three times daily. lisinopril-hydrochlorothi Take 1 tablet 0 azide (PRINZIDE, by mouth ZESTORETIC) 20-12.5 mg every tablet morning. lurasidone (LATUDA) 40 mg Take 40 mg by 0 tablet mouth at bedtime daily. naproxen (NAPROSYN) 500 Take 500 mg 0 mg tablet by mouth twice daily as needed. Take with food. documented as of this encounter Plan of Treatment Not on filedocumented as of this encounter Procedures Comments Procedure Name Priority Date/Time Associated Diag nosis WRIST COMP MIN 3 VIEWS Routine 03/19/2019 Arthrit is of right wrist RIGHT 10:31 AM SUPERVISOR documented in this encounter Results * WRIST COMP MIN 3 VIEWS RIGHT (03/19/2019 10:31 AM SUPERVISOR) Specimen Right Impressions Performed At Findings/Impression: [facility] [...] Interface, Radiant Results - 03/19/2019 11:47 AM SUPERVISOR WRIST COMP MIN 3 VIEWS RIGHT Clinical [...]
--- OUTSIDE RECORDS SUMMARY | 2019-05-27 20:02 | XMS REPORT | Encounter Summary ---
Author Author [facility] Organization [facility] Address Unknown Phone Unavailable Care Team Providers Care Windows System Admin Name Role Phone Marielena Vasquez MD PCP Reason for Visit * Auth/Cert Referred By Contact Referred To Contact Status Reason Specialty Diagnoses / Procedures Diagnoses Arthritis of right wrist Arthritis of right wrist [M19.031] P rocedures [place] REMOVAL IMPLANT DEEP RIGHT WRIST BURIED PIN REMOVAL Encounter Details Care Team Description Date Type Department Elvin Voss MD [address] [facility] [address] [place] [phone] Arthritis of right wrist 02/09/2019 [facility] [place] [address] [phone] Social History Date Tobacco Use Types Packs/Day [...] Signs Reading Time Taken Comments Vital Sign 124/88 02/09/2019 2:15 PM GUM REMOVER Blood Pressure 60 02/09/2019 2:15 PM GUM REMOVER Pulse 36.6 C (97.9 F) 02/09/2019 9:32 AM GUM REMOVER Temperature - - Respiratory Rate 94% 02/09/2019 2:15 PM GUM REMOVER Oxygen Saturation - - Inhaled Oxygen Concentration 85.2 kg (187 lb 13.3 oz) 02/09/2019 9:32 AM GUM REMOVER Weight 177.8 cm (5' 10") 02/09/2019 9:32 AM GUM REMOVER Height 26.95 02/09/2019 9:32 AM GUM REMOVER Body Mass Index documented in this encounter [...] H&P Notes * Georgie Benedict PA-C - 02/09/2019 10:10 AM GUM REMOVER [facility] History & Physical Note Admission Date: 02/09/2019 Chief Complaint: Symptomatic right wrist buried pins Assessment/Plan Plan to proceed to OR today for a right wrist buried pin removal History of Present Illness: Ryan Sorto is a 58 y.o. male. He has jose eduardo e irritation from the pins, but they all remain buried. Medical History: Diagnosis Date Anxiety Arthritis Back [...] Tobacco comment: 10 smokes a day Substance and Sexual Activity Alcohol use: Never Frequency: Never Drug use: Never Sexual activity: Not on file Other Topics Concern Not on file Social History Narrative Not on file Family History Problem Relation Age of Onset Arthritis-rheumatoid Mother Stroke Mother Heart Attack Mother Cancer Mother Arthritis-rheumatoid Father Heart Attack Father Allergies: No Known Allergies Outpatient Medications as of 02/09/2019 Medication Sig Dispense Refill amLODIPine (NORVASC) 5 mg tablet Take 5 mg by mouth daily. aspirin EC 81 mg tablet Take 81 mg by mouth daily. Take with food. atorvastatin (LIPITOR) 80 mg tablet Take 80 mg by mouth daily. clopiDOGrel (PLAVIX) 75 mg tablet Take 75 mg by mouth daily. cyclobenzaprine (FLEXERIL) 10 mg tablet Take 10 mg by mouth three times matthew y as needed for Muscle Cramps. divalproex (DEPAKOTE ER) 500 mg ER tablet Take 500 mg by mouth twice daily. Take with food. fish oil- omega 3-DHA/EPA 300/1,000 mg capsule Take 1 capsule by mouth daily . HYDROcodone/acetaminophen (NORCO) 5/325 mg tablet Take one tablet to two tab lets by mouth every 4 hours as needed 15 tablet 0 HYDROcodone/acetaminophen (NORCO) 5/325 mg tablet Take one tablet to two tab lets by mouth every 4 hours as needed for Pain 20 tablet 0 hydrOXYzine (ATARAX) 25 mg tablet Take 25 mg by mouth three times daily. lisinopril-hydrochlorothiazide (PRINZIDE, ZESTORETIC) 20-12.5 mg tablet Take 1 tablet by mouth every morning. lurasidone (LATUDA) 40 mg tablet Take 40 mg by mouth at bedtime daily. naproxen (NAPROSYN) 500 mg tablet Take 500 mg by mouth twice daily as needed . Take with food. Review of Systems: Musculoskeletal:positive for bone pain Blood pressure 135/89, pulse 71, temperature 36.6 C (97.9 F), height 177.8 c m (70"), weight 85.2 kg (187 lb 13.3 oz), SpO2 97 %. Physical Exam: General: AAOx3, NAD On evaluation of the patients right wrist, his wounds are nicely healed. Com posite finger flexion the palm. His wrist range of motion is reasonable for thi s point postop Lab/Radiology/Other Diagnostic Tests: Radiographs: CBC w/Diff Lab Results Component Value Date/Time WBC 6.8 12/08/2018 08:22 AM HGB 15.4 12/08/2018 08:22 AM HCT 45.5 12/08/2018 08:22 AM PLTCT 268 12/08/2018 08:22 AM Basic Metabolic Profile Lab Results Component Value Date/Time NA 137 12/08/2018 08:22 AM K 4.0 12/08/2018 08:22 AM CL 103 12/08/2018 08:22 AM CO2 25 12/08/2018 08:22 AM GAP 9 12/08/2018 08:22 AM BUN 21 12/08/2018 08:22 AM CR 0.78 12/08/2018 08:22 AM GLU 93 12/08/2018 08:22 AM Coagulation Studies No results found for: PT, PTT, INR Georgie Benedict PA-C REMOVER documented in this encounter Miscellaneous Notes * Operative Report (DICTATED ONLY) - Elvin Voss MD - 02/09/2019 2:53 PM GUM REMOVER THE [address] [address] PATIENT NAME: RYAN SORTO MR#/PT#: [id number] Page 1 OPERATIVE REPORT DATE OF OPERATION: 02/09/2019 SURGEON: Elvin Voss MD NUT THREADER(S): Aileen Benedict PA-C PREOPERATIVE DIAGNOSIS: Right hand retained pin, status post four-corner fusion. POSTOPERATIVE DIAGNOSIS: Right hand retained pin, status post four-corner fusion. OPERATIVE PROCEDURE: Right wrist buried pin removal. ANESTHESIA: General. DESCRIPTION AND FINDINGS OF OPERATIVE PROCEDURE: After informed consent had been obtained, the patient was transported to the OR. He was transferred supine to the operating table. The right arm was positione d on a hand table and sterilely prepped and draped in a standard fashion. An op erative pause was conducted to confirm correct patient, side, site, and procedur e. The patient received IV cefazolin for antimicrobial prophylaxis. I confirme d my initials were present on the operative extremity. We began with examinatio n of the patient's wrist under fluoroscopy. The midcarpal joint appeared to be well fused. We opened several small incisions over the ulnar side of the hand o dylan the palpable pins. Dissected carefully through the subcutaneous tissue unde r 4.0 loupe magnification. The pin tips were identified and carefully retracted . We then localized pins over the dorsum of the hand. These were more deeply b uried. The distal portion of the incision was opened and we dissected onto the metacarpals. The extensor tendons were carefully retracted and the pin was iden tified and retrieved. The wounds were then thoroughly irrigated with normal kathryn ine. Final images were obtained. The midcarpal joint again appeared to be well fused. Tourniquet was released. Hemostasis was obtained with bipolar electroc autery. The skin was then reapproximated with interrupted 4-0 Prolene at each o f our incisions. A sterile dressing of Xeroform, 4 x 4's was applied followed b y a well-molded, well-padded short-arm splint. The wounds were infiltrated with 0.25% Marcaine prior to dressing application. ESTIMATED BLOOD LOSS: Minimal. SPECIMENS REMOVED: None. ATTESTATION: I was present for the entire procedure and performed all technical aspects with the assistance of Aileen Benedict PA-C. The aid of physician hoda julian was required as no qualified resident was available. RAZA assisted with perez b positioning and soft tissue retraction to allow for the safe completion of pro cedure. Elvin Voss MD TF / MEDQ /[id number] cc: - Elvin Voss MD REMOVER * Procedures (Immed Post or Bedside) - Georgie Benedict PA-C - 02/09/2019 12:52 PM GUM REMOVER Brief Operative Note Name: Ryan Sorto is a 58 y.o. male : 1960 DATE OF OPERATION: 02/09/2019 Date: 02/09/2019 Preoperative Dx: Arthritis of right wrist [M19.031] Post-op Diagnosis * Arthritis of right wrist [M19.031] Procedure(s) (LRB): RIGHT WRIST BURIED PIN REMOVAL (Right) Anesthesia Type: General Surgeon(s) and Role: * Elvin Voss MD - Primary * Georgie Benedict PA-C - Assisting Findings: Buried pins in right wrist Estimated Blood Loss: No blood loss documented. Specimen(s) Removed/Disposition: * No specimens in log * Complications: None Implants: None Drains: None Disposition: PACU - stable Georgie Benedict PA-C Pager [phone] REMOVER documented in this encounter Plan of Treatment Not on filedocumented as of this encounter Procedures Comments Procedure Name Priority Date/Time Associated Diag nosis REMOVAL HARDWARE - DEEP - 02/09/2019 Arthritis o f right wrist UPPER EXTREMITY 10:53 AM GUM REMOVER TELEMETRY STRIPS-SCAN 02/09/2019 12:00 AM GUM REMOVER documented in this encounter Results * TELEMETRY STRIPS-SCAN (02/09/2019 12:00 AM GUM REMOVER) Narrative Performed At This result has an attachment that is n ot available. Ordered by an unspecified provider. documented in this encounter Visit Diagnoses Diagnosis Arthritis of right wrist Unspecified arthropathy, forearm documented in this encounter Administered Medications Action Date Dose Rate Site Medication Order MAR Action fentaNYL citrate PF (SUBLIMAZE) injection 50-100 mcg 50-100 mcg, Intravenous, EVERY 5 MIN PRN, Starting Tue02/09/19 at 1242, Until Tue02/09/19 at 1654, Pain Injectable, For Pain Score 7-10, For Pain Score 7-10 Maximum total dose of 200 mcg Hold for RR < 10, PACU (only) haloperidol (HALDOL) injection 1 mg 1 mg, Intravenous, ONCE PRN, 1 dose, Starting 02/09/19 at 1242, Until Fr i 02/09/19 at 1654, Other..., Nausea and Vomiting, First line agent. DO NOT ADMINISTER if given intraoperatively, PACU (only) 02/09/2019 9:38 AM GUM REMOVER 1,000 mL 20 mL/hr lactated ringers infusion Given - New 1,000 mL, 1,000 mL, Intravenous, at 20 Bag mL/hr, CONTINUOUS, Starting Tue 9 at 0930, Until Tue02/09/19 at 1654, Pre-Op LACTATED RINGERS IV SOLP (Cabinet Override) NOW, 1 dose, Tue02/09/19 at 0930, Created by cabinet override, Created by cabinet override, lidocaine PF 1% (10 mg/mL) injection 0.1-2 mL 0.1-2 mL, Injection, NEEDED, Startin g Tue02/09/19 at 1022, Until Tue 9 at 1654, Other..., for IV insertion, Pre-Op oxyCODONE (ROXICODONE) tablet 5-10 mg 5-10 mg, Oral, ONCE PRN, 1 dose, Starting Tue02/09/19 at 1242, Until Fr i 02/09/19 at 1654, Pain PO, For Pain Score <4, For Pain Score <4, PACU (only ) documented in this encounter
--- OUTSIDE RECORDS SUMMARY | 2019-05-27 20:02 | XMS REPORT | Encounter Summary ---
Author Author [facility] Organization [facility] Address Unknown Phone Unavailable Care Team Providers Care Automobile Club Travel Counselor Name Role Phone Marielena Vasquez MD PCP Reason for Referral * Consult, Test & Treat (Routine) Referred By Contact Referred To Contact Status Reason Specialty Diagnoses / Procedures Georgie Benedict PA-C [address] [facility] [address] Closed Specialty Services Diagnoses Required Status post fusion of wrist Reason for Visit * Reason Comments Post-op Encounter Details Care Team Description Date Type Department Georgie Benedict PA-C [address] [facility] [place], [place] [phone] Status post fusion of wrist (Primary Dx) 02/22/2019 Office Visit The [facility] [address] [place] [address] Social History Date Tobacco Use [...] Comments Vital Sign 135/76 02/22/2019 8:02 AM DIRECTOR MEDICAID Blood Pressure 82 02/22/2019 8:02 AM DIRECTOR MEDICAID Pulse - - Temperature - - Respiratory Rate - - Oxygen Saturation - - Inhaled Oxygen Concentration 85.2 kg (187 lb 13.3 oz) 02/22/2019 8:02 AM DIRECTOR MEDICAID Weight 177.8 cm (5' 10") 02/22/2019 8:02 AM DIRECTOR MEDICAID Height 26.95 02/22/2019 8:02 AM DIRECTOR MEDICAID Body Mass Index documented in this encounter Progress Notes * Georgie Benedict PA-C - 02/22/2019 8:00 AM DIRECTOR MEDICAID Mr. Sorto returns to clinic now 2 weeks following his right wrist buried pin removal. He has been using his velcro style wrist splint for comfort. He notes a lmost no pain at the wrist and is pleased with this. On examination of the patient's right wrist, his wounds are well healed. There i s no drainage or signs of infection. There is no significant swelling. Full comp osite finger flexion. No extensor lag. His dorsal sensation is intact. I reviewed with Mr. Sorto his sutures will be removed today. He would like to visit with hand therapy in [place] and he will be provided with a prescription to work on his wrist range of motion. We reviewed continuing expectations in r egards to his wrist range of motion. He may continue to wean from his splint. He will return as needed. All of his questions were answered. CTOR MEDICAID documented in this encounter Plan of Treatment Order Schedule Name Type Priority Associated Diag noses Ordered: 02/22/2019 AMB REFERRAL TO HAND Outpatient Routine Status po st fusion of THERAPY Referral wrist documented as of this encounter Visit Diagnoses Diagnosis Status post fusion of wrist documented in this encounter
--- OUTSIDE RECORDS SUMMARY | 2019-05-27 20:02 | XMS REPORT | Encounter Summary ---
Author Author [facility] Organization [facility] Address Unknown Phone Unavailable Care Team Providers Care Olap Developer Name Role Phone Marielena Vasquez MD PCP Encounter Details Care Team Description Date Type Department Elvin Voss MD 1999 [facility] [address] [place] [address] Arthritis of right wrist (Primary Dx) 01/09/[address] [facility] [address] [place] [address] Social History Date Tobacco Use [...] MIN 3 VIEWS RIGHT (01/11/2019 12:27 PM CHIEF PRIVACY OFFICER) Specimen Right Impressions Performed At 1. Redemonstration [...] Interface, Radiant Results - 01/11/2019 4:09 PM CHIEF PRIVACY OFFICER Exam: WRIST COMP MIN 3 VIEWS RIGHT [...]
--- OUTSIDE RECORDS SUMMARY | 2019-05-27 20:02 | XMS REPORT | Encounter Summary ---
Author Author [facility] Organization [facility] Address Unknown Phone Unavailable Care Team Providers Care Neurobiologist Name Role Phone Marielena Vasquez MD PCP Reason for Visit * Auth/Cert Referred By Contact Referred To Contact Status Reason Specialty Diagnoses / Procedures Diagnoses Arthritis of right wrist Arthritis of right wrist [M19.031] P rocedures [place] REMOVAL IMPLANT DEEP RIGHT WRIST BURIED PIN REMOVAL Encounter Details Care Team Description Date Type Department Elvin Voss MD [address] [facility] [address] [place] [address] [phone] RIGHT WRIST BURIED PIN REMOVAL 02/09/2019 Surgery [facility] [place] [address] [phone] Social History Date Tobacco Use Types Packs/Day [...] Comments Vital Sign 124/88 02/09/2019 2:15 PM CARD GRINDER Blood Pressure 60 02/09/2019 2:15 PM CARD GRINDER Pulse 36.6 C (97.9 F) 02/09/2019 9:32 AM CARD GRINDER Temperature - - Respiratory Rate 94% 02/09/2019 2:15 PM CARD GRINDER Oxygen Saturation - - Inhaled Oxygen Concentration 85.2 kg (187 lb 13.3 oz) 02/09/2019 9:32 AM CARD GRINDER Weight 177.8 cm (5' 10") 02/09/2019 9:32 AM CARD GRINDER Height 26.95 02/09/2019 9:32 AM CARD GRINDER Body Mass Index documented in this encounter [...] Georgie Benedict PA-C - 02/09/2019 10:10 AM CARD GRINDER [facility] History & Physical Note Admission [...] for: PT, PTT, INR Georgie Benedict PA-C GRINDER documented in this encounter Miscellaneous Notes * Operative Report (DICTATED ONLY) - Elvin Voss MD - 02/09/2019 2:53 PM CARD GRINDER THE [address] [address] PATIENT NAME: RYAN SORTO MR#/PT#: [id number] Page 1 OPERATIVE REPORT DATE OF OPERATION: 02/09/2019 SURGEON: Elvin Voss MD GARMENT FOLDER(S): Aileen Benedict PA-C PREOPERATIVE DIAGNOSIS: Right hand [...] cedure. Elvin Voss MD TF / MEDQ /[id number] cc: - Elvin Voss MD GRINDER * Procedures (Immed Post or Bedside) - Georgie Benedict PA-C - 02/09/2019 12:52 PM CARD GRINDER Brief Operative Note Name: Ryan Sorto is [...] PACU - stable Georgie Benedict PA-C Pager [phone] GRINDER documented in this encounter Plan of Treatment Not on filedocumented as of this encounter Procedures Comments Procedure Name Priority Date/Time Associated Diag nosis REMOVAL HARDWARE - DEEP - 02/09/2019 Arthritis o f right wrist UPPER EXTREMITY 10:53 AM CARD GRINDER TELEMETRY STRIPS-SCAN 02/09/2019 12:00 AM CARD GRINDER documented in this encounter Results * TELEMETRY STRIPS-SCAN (02/09/2019 12:00 AM CARD GRINDER) Narrative Performed At This result has an attachment that is n ot available. Ordered by an unspecified provider. documented in this encounter Visit Diagnoses Diagnosis Arthritis of right wrist Unspecified arthropathy, forearm documented in this encounter Administered Medications Action Date Dose Rate Site Medication Order MAR Action 02/09/2019 12:38 PM CARD GRINDER 4 mL Arm, Rig ht bupivacaine (MARCAINE) 0.25 % injection Given INTRA-PROCEDURE MED, Starting Tue02/09/19 at 1238, Until Tue02/09/19 at 1251, Intra-op fentaNYL citrate PF (SUBLIMAZE) injection 50-100 mcg 50-100 mcg, Intravenous, EVERY 5 MIN PRN, Starting Tue02/09/19 at 1242, Until Tue02/09/19 at 1654, Pain Injectable, For Pain Score 7-10, For Pain Score 7-10 Maximum total dose of 200 mcg Hold for RR < 10, PACU (only) haloperidol (HALDOL) injection 1 mg 1 mg, Intravenous, ONCE PRN, 1 dose, Starting Tue02/09/19 at 1242, Until Fr i 02/09/19 at 1654, Other..., Nausea and Vomiting, First line agent. DO NOT ADMINISTER if given intraoperatively, PACU (only) 02/09/2019 9:38 AM CARD GRINDER 1,000 mL 20 mL/hr lactated ringers infusion [...]
--- OUTSIDE RECORDS SUMMARY | 2019-05-27 20:02 | XMS REPORT | Encounter Summary ---
Author Author [facility] Organization [facility] Address Unknown Phone Unavailable Care Team Providers Care Sealer Sander Name Role Phone Marielena Vasquez MD PCP Encounter Details Care Team Description Date Type Department Emeli Fournier MD [id number] [place] [address] 12/08/2018 [facility] [address] [facility] Level 2 [place], [place] [id number] Social History Date Tobacco Use Types Packs/Day [...] as of this encounter Plan of Treatment Date/Time Name Type Priority Associated Diag noses 12/08/2018 8:29 AM CDT POC ANES US GUIDED NERVE Imaging Routine BLOCK documented as of this encounter Visit Diagnoses Not on filedocumented in this encounter
--- OUTSIDE RECORDS SUMMARY | 2019-05-27 20:02 | XMS REPORT | Encounter Summary ---
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 Name Role Phone Marielena Vasquez MD PCP Reason for Visit * Reason Comments Post-op Right wrist Encounter Details Care Team Description Date Type Department Georgie Benedict PA-C [address] [facility] [address] [place] [address] [phone] Wrist arthritis (Primary Dx) 12/21/2018 Office Visit [facility] [address] [place] [phone] Social History Date Tobacco Use Types Packs/Day [...] Inhaled Oxygen Concentration 86.2 kg (190 lb) 12/21/2018 9:51 AM CDT Weight 177.8 cm (5' 10") 12/21/2018 9:51 AM CDT Height 27.26 12/21/2018 9:51 AM CDT Body Mass Index documented in this encounter Progress Notes * Georgie Benedict PA-C - 12/21/2018 9:00 AM CDT Mr. Sorto returns to clinic, now 2 weeks following surgery. He has not noted any significant problems postoperatively. On examination of the patients right wrist, his wound is well healed. There i s no significant swelling. Full composite finger flexion. No extensor lag. His d orsal sensation is intact. IMAGING: X-rays of the patient's wrist from today were reviewed. There are no si gnificant changes from intraop. I reviewed with Mr. Sorto his sutures will be removed today. He will be place d into a short arm cast. He will return in 3 weeks for follow up. He was in agre ement with this plan. All of his questions were answered. SETTER documented in this encounter Plan of Treatment [...]
--- OUTSIDE RECORDS SUMMARY | 2019-05-27 20:02 | XMS REPORT | Encounter Summary ---
Author Author [facility] Organization [facility] Address Unknown Phone Unavailable Care Team Providers Care Transportation Mechanic Name Role Phone Marielena Vasquez MD PCP Encounter Details Care Team Description Date Type Department Julia Mcbride MD [id number] [place] [address] 12/08/2018 [facility] 2000 [facility] Level [address] [place], [place] [phone] Social History Date Tobacco Use Types Packs/Day [...]
--- OUTSIDE RECORDS SUMMARY | 2019-05-27 20:03 | XMS REPORT | Encounter Summary ---
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 Furniture Caster Name Role Phone Marielena Vasquez MD PCP Reason for Visit * Auth/Cert Referred By Contact Referred To Contact Status Reason Specialty Diagnoses / Procedures Diagnoses Arthritis of right wrist Arthritis of right wrist [M19.031] P rocedures IN ARTHRODESIS WRIST W/ILIAC/OTHER AUTOGRAFT RIGHT SCAPHOIDECTOMY, FOUR CORNER FUSION Encounter Details Care Team Description Date Type Department Elvin Voss MD 1999 [facility] [address] [place] [id number] Arthritis of right wrist 12/08/2018 [facility] [address] [address] Social History Date Tobacco Use Types Packs/Day [...] PACU - stable Georgie Benedict PA-C Pager [phone] * Operative Report (Direct Entry) - Elvin Voss MD - 12/08/2018 9:25 AM CDT OPERATIVE REPORT Name: Ryan Sorto is a 58 y.o. male : 1960 DATE OF OPERATION: 12/08/2018 Primary Surgeon: Elvin Voss MD Tensile Tester(s): Kavon Ma MD Preoperative Diagnosis: #1 SNAC, [...] Ma, orthopedic resident. Elvin Voss MD Pager [phone] documented in this encounter Plan of Treatment [...] a result. ESME LLANOS Performing Organization Address City/[facility] Ph one Number ESME LLANOS * CBC [...] MAIN LAB Specimen Blood Performing Organization Address City/[facility]/Zipcode Ph one Number MAIN LAB [address] [place] [address] * BASIC METABOLIC PANEL (12/08/2018 8:22 AM [...] >60 >60 mL/min [facility] Comment: [place] The eGFR is not validated f or use in drug dosing adjustments. Continue to use estimated creatinine clearance per dosing reference text. Please contact the Clinical Pharmacist for questions. eGFR >60 >60 mL/min [facility] [place] Comment: The eGFR is not validated for use in drug dosing adjustments. Continue to use estimated creatinine clearance per dosing reference text. Please contact the Clinical Pharmacist for questions. Specimen Blood Performing Organization Address City/State/Zipcode Ph one Number [facility] [address] [place] [address] * TELEMETRY STRIPS-SCAN (12/08/2018 12:00 AM CDT) Narrative Performed At This result has an attachment that is n ot available. Ordered by an unspecified provider. documented in this encounter Visit Diagnoses Diagnosis Peripheral vascular disease (HCC) Peripheral vascular disease, unspecifie d Arthritis of right wrist Unspecified arthropathy, forearm documented in this encounter Administered Medications Action Date Dose Rate Site Medication Order MAR Action 12/08/2018 8:23 AM CDT 650 mg acetaminophen (TYLENOL) tablet 650 mg Given 650 mg, Oral, ONCE, 1 dose, Tue 9 at 0815, To be given pre-op with a sip of water [facility] minutes prior to scheduled surgery [...]
--- OUTSIDE RECORDS SUMMARY | 2019-05-27 20:04 | XMS REPORT ---
Author Author Ryan Amaro Organization [facility] Address Unknown Phone Unavailable Care Team Providers Care Center Lead Consultant Name Role Phone Migration, Doctor Unavailable Unavailable PROBLEMS Type Condition ICD9-CM Code TBV90-GU Code Onset Dates Condition S tatus SNOMED Code Problem Peripheral arterial disease I73.9 Ac tive 755324210 Problem 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 Active 301 618712 Problem Schizoaffective disorder F25.9 Activ e 60802099 Problem Bipolar disorder F31.9 Active 137 48726 Problem History of [place] (myocardial infarction) I25.2 Active 407694062 Problem Claudication I73.9 Active 4758009 00 Problem Tobacco use Z72.0 Active 07991695 0 Problem Other chronic pain G89.29 Active 8 0155082 Problem Hyperlipidemia E78.5 Active 23334 004 Problem Popliteal artery aneurysm, bilateral I72.4 Active 80891173 Problem Essential hypertension I10 Active 42663776 Problem Bipolar affective disorder, currently depressed, mild F31.31 Active 473107231 Problem Bipolar disorder, in partial remission, most rec ent episode depressed F31.75 Active 29358328 Problem Intrinsic eczema L20.84 Active 240 78403 Problem Bipolar disorder, current ep isode depressed, severe, without psychotic features F31.4 Active 305491627 ALLERGIES No Information ENCOUNTERS Encounter Location Date Diagnosis [facility] [address] [id number] [place] [address] Apr, [facility] [address] [id number] [place] [address] Mar, Essential hypertension I10 ; Peripheral arterial disease I73.9 ; 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 and Popliteal artery aneurysm, bilateral I72.4 [facility] [address] [facility] [id number] [place] [address] Feb, Right wrist pain M25.531 [facility] [address] [address] 17 Feb, 2019 Right wrist pain M25.531 [facility] [address] [address] 2019 Right wrist pain M25.531 [facility] [address] [address] Feb, Right wrist pain M25.531 [facility] [address] [address] Feb, Low back pain M54.5 [facility] [address] [address] Jan, Low back pain M54.5 [facility] [address] [address] Jan, Low back pain M54.5 [place] [address] [address] Jan, Low back pain M54.5 [facility] [address] [address] Jan, [place] [address] [address] Jan, Low back pain M54.5 [place] [address] [address] Jan, Bipolar affective disorder, currently de pressed, mild F31.31 [place] [address] [address] Jan, Bipolar disorder, in partial remission, most recent episode depressed F31.75 ; Hyperlipidemia E78.5 and Essential hypertension I10 [place] [address] [address] Jan, [place] [address] [address] Jan, Low back pain M54.5 [facility] [address] [address] 15 Dec, 2018 Bipolar disorder, current episode depres sed, severe, without psychotic features F31.4 [place] [address] [address] 15 Dec, 2018 Chest pain, non-cardiac R07.89 ; Hyperli pidemia E78.5 ; Muscle spasm of back M62.830 ; Low back pain M54.5 ; Other chronic pain G89.29 ; Pain in thoracic spine M54.6 ; Essential hypertension I10 and Peripheral arterial disease I73.9 [place] [address] [address] Dec, [place] [address] [address] Dec, [place] [address] [address] Nov, Hyperlipidemia E78.5 and Essential hyper tension I10 [place] [address] [address] Nov, [place] [address] [address] Nov, Hyperlipidemia E78.5 ; Essential hyperte nsion I10 ; Peripheral arterial disease I73.9 ; Tobacco use Z72.0 ; Bipolar disorder, current episode depressed, severe, without psychotic features F31.4 ; Diarrhea, unspecified type R19.7 ; Encounter for screening for lung cancer Z12.2 and Encounter for immunization Z23 [place] [address] [address] Nov, [place] [address] [address] Nov, [address] [address] Nov, Bipolar disorder, in partial remission, most recent episode depressed F31.75 ; Hyperlipidemia E78.5 and Essential hypertension I10 [place] [address] [address] Nov, [facility] [address] [id number] [place] [address] Nov, [facility] [address] [place] [place] [id number] [place] [address] Oct, [facility] [id number] [place] [address] Oct, [facility] [address] [address] Oct, [facility] [address] [address] Sep, [facility] [address] [address] Aug, Bipolar disorder, in partial remission, most recent episode depressed F31.75 ; Hyperlipidemia E78.5 and Essential hypertension I10 [facility] [address] [address] Jul, [facility] [address] [address] June, Strain of left hamstring muscle, subsequ ent encounter S76.312D [facility] [address] [address] June, Bipolar disorder, in partial remission, most recent episode depressed F31.75 ; Hyperlipidemia E78.5 and Essential hypertension I10 [facility] [address] [address] May, Right wrist pain M25.531 [facility] [address] [address] May, Right wrist pain M25.531 [facility] [address] [facility] [id number] [address] [place] [address] May, Sebaceous cyst of right axil la L72.3 [facility] [address] [facility] [place] [address] Apr, [facility] [address] [address] Apr, Peripheral arterial disease I73.9 [facility] [address] [address] 14 Apr, 2018 Peripheral arterial disease I73.9 [facility] [address] [address] 13 Apr, 2018 Bipolar disorder, in partial remission, most recent episode depressed F31.75 ; Hyperlipidemia E78.5 and Essential hypertension I10 [facility] [address] [address] Mar, [facility] [address] [address] Mar, [facility] [address] [address] Mar, [facility] [address] [address] Feb, Bipolar disorder, in partial remission, most recent episode depressed F31.75 ; Hyperlipidemia E78.5 and Essential hypertension I10 [facility] [address] [address] Dec, Bipolar disorder, in partial remission, most recent episode depressed F31.75 ; Hyperlipidemia E78.5 and Essential hypertension I10 [facility] [address] [address] Nov, [facility] [address] [address] Nov, [facility] [address] [address] Nov, Bipolar disorder, in partial remission, most recent episode depressed F31.75 ; Hyperlipidemia E78.5 and Essential hypertension I10 [facility] [address] [address] Nov, 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 [facility] [address] [address] Oct, Essential hypertension I10 and Hyperlipi demia E78.5 [place] [address] [address] Sep, [facility] [address] [address] Sep, [place] [address] [address] Sep, Skin lesion of foot L98.9 [place] [address] [address] Aug, Bipolar disorder, in partial remission, most recent episode depressed F31.75 [place] [address] [address] Jul, Bipolar disorder, in partial remission, most recent episode depressed F31.75 [place] [address] [address] Jul, Peripheral arterial disease I73.9 [place] [address] [address] Apr, Bipolar disorder, in partial remission, most recent episode depressed F31.75 [place] [address] [address] Apr, Peripheral arterial disease I73.9 [place] [address] [address] Apr, Peripheral arterial disease I73.9 ; Esse ntial hypertension I10 ; Hyperlipidemia E78.5 ; Bipolar disorder, in partial remission, most recent episode depressed F31.75 ; Tobacco use Z72.0 and Intrinsic eczema L20.84 [place] [address] [address] Feb, Bipolar disorder, in partial remission, most recent episode depressed F31.75 [place] [address] [address] Dec, Bipolar disorder, in partial remission, most recent episode depressed F31.75 [place] [address] [address] Nov, [place] [address] [address] Oct, Hyperlipidemia E78.5 ; Essential hyperte nsion I10 ; Peripheral arterial disease I73.9 ; 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 and Encounter for immunization Z23 [place] [address] [address] Oct, 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 [place] [address] [address] Sep, Bipolar affective disorder, currently de pressed, mild F31.31 [place] [address] [address] Sep, Bipolar affective disorder, currently de pressed, mild F31.31 [place] [address] [address] Aug, Bipolar affective disorder, currently de pressed, mild F31.31 [place] [address] [address] Aug, Bipolar affective disorder, currently de pressed, mild F31.31 [place] [address] [address] Aug, Bipolar 1 disorder, mixed, partial remis ernestine F31.77 [place] [address] [address] Jul, Claudication I73.9 [place] [address] [address] Jul, Hyperlipidemia E78.5 [place] [address] [address] June, [place] [address] [address] June, [place] [address] [address] May, Bipolar 1 disorder, mixed, partial remis ernestine F31.77 [place] [address] [address] 03 May, 2016 Bipolar 1 disorder, mixed, partial remis ernestine F31.77 [place] [address] [address] Apr, 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 [place] [address] [address] 28 Mar, 2016 Bipolar 1 disorder, mixed, partial remis ernestine F31.77 and Alcohol dependence, uncomplicated F10.20 [place] [address] [address] Mar, Hyperlipidemia E78.5 [place] [address] [address] Mar, Essential hypertension I10 ; Tobacco use Z72.0 and Claudication I73.9 [place] [address] [address] Mar, [place] [address] [address] Feb, Bipolar 1 disorder, mixed, partial remis ernestine F31.77 and Alcohol dependence in remission F10.21 [place] [address] [address] Jan, Peripheral arterial disease I73.9 and Bi polar 1 disorder, mixed, partial remission F31.77 [place] [address] [address] Jan, [place] [address] [address] 05 Nov, 2015 [place] [address] [address] 13 Oct, 2015 Bipolar disorder, unspecified F31.9 and Alcohol dependence, uncomplicated F10.20 [place] [address] [address] Sep, Hyperlipidemia E78.5 ; Essential hyperte nsion I10 ; Peripheral arterial disease I73.9 and Tobacco use Z72.0 [place] [address] [address] Sep, Hyperlipidemia E78.5 [place] [address] [address] Aug, Bipolar 1 disorder, mixed, partial remis ernestine F31.77 and Alcohol dependence, uncomplicated F10.20 [place] [address] [address] June, Bipolar 1 disorder, mixed, partial remis ernestine F31.77 [place] [address] [address] May, Hypertension I10 ; Hyperlipidemia E78.5 ; PVD (peripheral vascular disease) I73.9 and Claudication I73.9 [place] [address] [address] Apr, [place] [address] [address] Apr, [place] [address] [address] Mar, [place] [address] [address] Mar, Hyperlipidemia E78.5 [place] [address] [address] Mar, Hyperlipidemia E78.5 and Peripheral summer rial disease I73.9 [place] [address] [address] Feb, Hyperlipidemia E78.5 ; Essential hyperte nsion I10 and Peripheral arterial disease I73.9 [place] [address] [address] Jan, [place] [address] [address] Jan, Bipolar disorder, unspecified F31.9 ; An xiety disorder, unspecified F41.9 ; Cannabis abuse, uncomplicated F12.10 and Alcohol dependence, uncomplicated F10.20 [place] [address] [address] Jan, Peripheral arterial disease I73.9 [place] [address] [address] Dec, Bipolar 1 disorder, mixed, partial remis ernestine F31.77 [place] [address] [address] Nov, [place] [address] [address] Nov, Unspecified essential hypertension 401.9 [place] [address] [address] Sep, Bipolar disorder, unspecified 296.80 [place] [address] [address] Aug, Unspecified essential hypertension 401.9 [place] [address] [address] Aug, Bipolar disorder, unspecified 296.80 ; O ther and unspecified alcohol dependence, unspecified drunkenness 303.90 and Nondependent cannabis abuse, unspecified 305.20 [place] [address] [address] Aug, [place] [address] [address] Jul, Physical exam, annual V70.0 [place] [address] [address] Jul, [place] [address] [address] June, Bipolar disorder, unspecified 296.80 ; A nxiety state, unspecified 300.00 ; Cannabis abuse 305.20 and Alcohol dependence 303.90 [facility] [address] [place] [place] [id number] [place] [address] 14 May, 2014 [facility] [address] [place] [id number] [place] [address] May, [facility] [address] [place] [place] [id number] [place] [address] Apr, [facility] [address] [place] [id number] [place] [address] Apr, [facility] [address] [place] [id number] [place] [address] Apr, [facility] [address] [place] [id number] [place] [address] Apr, [facility] [address] [place] [id number] [place] [address] Apr, [facility] [address] [place] [address] [id number] [place] [address] Apr, [facility] [address] [place] [id number] [place] [address] Apr, [facility] [address] [place] [id number] [place] [address] Apr, [facility] [address] [place] [id number] [place] [address] Apr, [facility] [address] [place] [id number] [place] [address] Apr, [facility] [id number] [place] [address] Apr, [facility] [address] [place] [id number] [place] [address] Mar, [facility] [address] [place] [id number] [place] [address] Mar, [facility] [address] [id number] [place] [address] Mar, [facility] [place] [facility] [address] [id number] [place] [address] Mar, [facility] [place] [facility] [address] [id number] [place] [address] Feb, [facility] [place] [facility] [address] [id number] [place] [address] Feb, [facility] [place] [facility] [address] [id number] [place] [address] Feb, [facility] [place] [facility] [address] [id number] [place] [address] Feb, [facility] [place] [facility] [address] [id number] [place] [address] Feb, [facility] [place] [facility] [address] [id number] [place] [address] Feb, [facility] [place] [facility] [address] [place] [id number] [place] [address] Feb, [facility] [place] [facility] [address] [id number] [place] [address] Feb, [facility] [place] [facility] [address] [id number] [place] [address] Feb, [facility] [place] [facility] [address] [id number] [place] [address] Jan, [facility] [place] [facility] [address] [id number] [place] [address] Jan, [facility] [place] [facility] [address] [id number] [place] [address] Nov, [facility] [place] [facility] [address] [id number] [place] [address] Nov, [facility] [place] [facility] [address] [id number] [place] [address] Nov, [facility] [place] [facility] [address] [id number] [place] [address] Nov, [facility] [place] [facility] [address] [id number] [facility] [place] [address] 16 Oct, 2013 [facility] [place] [facility] [address] [id number] [facility] [place] [address] 16 Oct, 2013 [facility] [place] [facility] [address] [facility] [id number] [place] [address] 16 Oct, 2013 [facility] [place] [facility] [address] [id number] [place] [address] 16 Oct, 2013 [facility] [place] [facility] [address] [facility] [id number] [place] [address] Oct, 2013 [facility] [place] [facility] [address] [id number] [place] [address] Oct, 2013 [facility] [place] [facility] [address] [id number] [place] [address] Oct, 2013 [facility] [place] [facility] [address] [id number] [place] [address] Oct, 2013 [facility] [place] [facility] [address] [id number] [place] [address] Sep, [facility] [place] [facility] [address] [id number] [place] [address] Sep, [facility] [place] [facility] [address] [id number] [place] [id number] Sep, [facility] [place] [facility] [address] [id number] [place] [address] Sep, [facility] [place] [facility] [address] [id number] [place] [address] Sep, [facility] [place] [facility] [address] [id number] [place] [address] Sep, [facility] [place] [facility] [address] [id number] [place] [address] Sep, [facility] [place] [facility] [address] [id number] [place] [address] Sep, [facility] [place] [facility] [address] [id number] [place] [address] Sep, [facility] [place] [facility] [address] [id number] [place] [address] Sep, [facility] [place] [facility] [address] [id number] [place] [address] Sep, [facility] [place] [facility] [address] [id number] [place] [address] Sep, [facility] [place] [facility] [address] [id number] [place] [id number] Sep, [facility] [place] [facility] [address] [id number] [place] [address] Sep, [facility] [place] [facility] [address] [id number] [place] [address] Aug, [facility] [place] [facility] [address] [id number] [place] [address] Aug, [facility] [place] [facility] [address] [id number] [place] [address] Aug, [facility] [place] [facility] [address] [id number] [place] [address] Aug, [facility] [place] [facility] [address] [id number] [place] [address] Jul, [facility] [place] [facility] [address] [id number] [place] [address] Jul, [facility] [place] [facility] [address] [id number] [place] [address] May, [facility] [place] [facility] [address] [id number] [place] [address] May, [facility] [place] [facility] [address] [id number] [place] [address] May, [facility] [place] [facility] [address] [id number] [place] [address] May, [facility] [place] [facility] [address] [id number] [place] [address] May, [facility] [place] [facility] [address] [id number] [place] [address] 17 May, 2013 [facility] [place] [facility] [address] [facility] [id number] [facility] [place] [address] 16 May, 2013 [facility] [place] [facility] [address] [facility] [id number] [place] [address] 16 May, 2013 [facility] [place] [facility] [address] [id number] [facility] [place] [address] 15 May, 2013 [facility] [place] [facility] [address] [id number] [place] [address] 15 May, 2013 [facility] [place] [facility] [address] [facility] [id number] [place] [address] 15 May, 2013 [facility] [place] [facility] [address] [id number] [facility] [place] [address] 15 May, 2013 [facility] [place] [facility] [address] [id number] [place] [id number] 08 May, 2013 [facility] [place] [facility] [address] [id number] [place] [address] 08 May, 2013 [facility] [place] [facility] [address] [facility] [id number] [facility] [place] [address] 11 Apr, 2013 [facility] [place] [facility] [address] [id number] [facility] [place] [address] Apr, [facility] [place] [facility] [address] [id number] [place] [address] Apr, [facility] [place] [facility] [address] [id number] [place] [address] Apr, [facility] [place] [facility] [address] [facility] [id number] [place] [id number] 16 Feb, 2013 [facility] [place] [facility] [address] [id number] [place] [address] Feb, [facility] [place] [facility] [address] [id number] [place] [address] Jan, [facility] [place] [facility] [address] [id number] [place] [address] Jan, [facility] [place] [facility] [address] [id number] [place] [address] 17 Jan, 2012 [facility] [address] [id number] [place] [address] 17 Jan, 2012 [facility] [place] [facility] [address] [id number] [place] [address] Jan, [facility] [place] [facility] [address] [id number] [place] [address] Jan, [facility] [place] [facility] [address] [id number] [place] [address] Jan, [facility] [place] [facility] [address] [id number] [place] [id number] Jan, [facility] [address] [id number] [place] [id number] Dec, [facility] [id number] [place] [id number] Dec, [facility] [address] [id number] [place] [id number] Dec, [facility] [address] [id number] [place] [id number] Dec, [facility] [address] [id number] [place] [id number] Dec, [facility] [address] [id number] [place] [address] Dec, [facility] [address] [id number] [place] [address] Dec, [facility] [address] [id number] [place] [id number] Dec, [facility] [id number] [place] [id number] Dec, [facility] [address] [id number] [place] [id number] Nov, [facility] [address] [id number] [place] [address] Nov, [facility] [address] [id number] [place] [id number] 29 Nov, 2012 [facility] [address] [id number] [place] [id number] 29 Nov, 2012 [facility] [address] [id number] [place] [id number] Nov, 2012 [facility] [address] [id number] [place] [id number] Nov, 2012 [facility] [address] [id number] [place] [address] Nov, 2012 [facility] [address] [id number] [place] [id number] Nov, 2012 [facility] [address] [id number] [place] [id number] Nov, 2012 [facility] [address] [id number] [place] [id number] 16 Nov, 2012 [facility] [address] [id number] [place] [id number] Nov, 2012 [facility] [address] [id number] [place] [id number] Nov, 2012 [facility] [address] [id number] [place] [id number] Nov, 2012 [facility] [address] [id number] [place] [id number] 30 Oct, 2012 [facility] [address] [id number] [place] [id number] 25 Sep, 2012 [facility] [facility] [address] [id number] [place] [address] 17 Sep, 2012 [facility] [facility] [address] [id number] [place] [id number] 13 Sep, 2012 [facility] [place] [facility] [address] [id number] [place] [id number] 10 Sep, 2012 [facility] [place] [facility] [address] [id number] [place] [address] 10 Sep, 2013 [facility] [facility] [address] [id number] [facility] [place] [address] 10 Oct, 2012 [facility] [place] [facility] [address] [facility] [id number] [place] [address] 16 Sep, 2012 [facility] [place] [facility] [address] [facility] [id number] [facility] [place] [address] 15 Sep, 2012 [facility] [place] [facility] [address] [facility] [id number] [place] [address] Sep, [facility] [place] [facility] [address] [facility] [id number] [place] [address] 29 Aug, 2012 [facility] [place] [facility] [address] [facility] [id number] [place] [address] Aug, [facility] [place] [facility] [address] [facility] [id number] [facility] [place] [address] 17 Aug, 2012 [facility] [address] [id number] [facility] [place] [address] 16 Aug, 2012 [facility] [address] [facility] [id number] [facility] [place] [address] Aug, [facility] [facility] [address] [id number] [facility] [place] [address] Aug, [facility] [address] [id number] [facility] [place] [address] Aug, [facility] [address] [id number] [facility] [place] [address] Jul, [facility] [address] [facility] [id number] [facility] [place] [address] Jul, [facility] [address] [id number] [facility] [place] [address] 14 Jul, 2012 [facility] [address] [facility] [id number] [facility] [place] [address] Jul, [facility] [address] [id number] [facility] [place] [address] Jul, [facility] [address] [id number] [place] [id number] 13 Jul, 2012 [facility] [address] [facility] [id number] [facility] [place] [address] Jul, [facility] [address] [id number] [place] [address] Jul, [facility] [address] [id number] [place] [address] Jul, [facility] [address] [id number] [place] [address] Jul, [facility] [address] [id number] [place] [address] Jul, [facility] [address] [id number] [place] [address] Jul, [facility] [address] [id number] [place] [address] Jul, [facility] [address] [id number] [place] [address] June, [facility] [address] [id number] [place] [address] June, [facility] [address] [id number] [place] [address] June, [facility] [address] [id number] [place] [address] June, [facility] [address] [id number] [place] [address] June, [facility] [address] [id number] [place] [address] June, [facility] [address] [id number] [place] [address] June, [facility] [address] [id number] [place] [address] June, [facility] [address] [id number] [place] [address] June, [facility] [address] [id number] [place] [address] May, [facility] [address] [id number] [place] [address] May, [facility] [address] [id number] [place] [address] May, [facility] [address] [id number] [place] [address] May, [facility] [address] [id number] [place] [address] 15 May, 2012 [facility] [address] [id number] [place] [address] May, [facility] [address] [id number] [place] [address] May, [facility] [address] [id number] [place] [address] May, [facility] [address] [id number] [place] [address] May, [facility] [address] [id number] [place] [address] Apr, [facility] [address] [id number] [place] [address] Apr, [facility] [address] [id number] [place] [address] Apr, [facility] [address] [id number] [place] [address] Apr, [facility] [address] [id number] [place] [id number] Mar, [facility] [address] [id number] [place] [address] Mar, [facility] [address] [id number] [place] [address] Feb, [facility] [address] [id number] [place] [address] 14 Feb, 2012 [facility] [address] [id number] [place] [address] 14 Feb, 2012 [facility] [address] [id number] [place] [address] Feb, [facility] [address] [id number] [place] [address] Feb, [facility] [address] [id number] [place] [address] Feb, [facility] [address] [id number] [place] [address] Feb, [facility] [address] [id number] [place] [address] Dec, [facility] [address] [id number] [place] [address] Dec, [facility] [id number] [place] [address] Dec, [facility] [address] [id number] [place] [address] Dec, [facility] [address] [id number] [place] [address] Dec, [facility] [address] [id number] [place] [id number] 16 Dec, 2011 [facility] [id number] [place] [address] Dec, [facility] [address] [id number] [place] [address] Dec, [facility] [address] [id number] [place] [address] Nov, [facility] [address] [id number] [place] [address] Nov, [facility] [address] [id number] [place] [address] Nov, [facility] [address] [id number] [place] [address] Nov, IMMUNIZATIONS No Known Immunizations SOCIAL HISTORY Never Assessed REASON FOR VISIT PLAN OF CARE VITAL SIGNS Height 69 in 2013-05-01 Weight 188.6 lbs 2013-05-01 Heart Rate 62 bpm 2013-05-01 Blood pressure systolic 128 mmHg 2013-05-01 Blood pressure diastolic 92 mmHg 2013-05-01 MEDICATIONS Unknown Medications RESULTS No Results PROCEDURES No Known procedures INSTRUCTIONS MEDICATIONS ADMINISTERED No Known Medications MEDICAL (GENERAL) HISTORY Type Description Date Medical History hypertension Medical History hyperlipidemia Medical History bipolar disorder Medical History cardiovascular disease-heart attack and stroke Medical History Pure hypercholesterolemia Surgical History appendectomy Surgical History vasectomy-09/01/[address] Flores at [facility] Surgical History Stent placed in groin on right side 2014 Surgical History Blood clot removed from right knee 2014 Surgical History Balloon angioplasty [facility]- Dr. Rebolledo 03/10 Surgical History right wrist 10/08/18 Hospitalization History Hospitalization for surgery only
--- OUTSIDE RECORDS SUMMARY | 2019-05-27 20:04 | XMS REPORT ---
Author Author Ryan PITT Organization [facility] Address [address] [place] [address] Care Team Providers Care Relief Map Modeler Name Role Phone JERRY PITT Unavailable PROBLEMS Type Condition ICD9-CM Code [id number] Code Onset Dates Condition S tatus SNOMED Code Problem Peripheral arterial disease I73.9 Ac tive 874072730 Problem 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 Active 301 285020 Problem Schizoaffective disorder F25.9 Activ e 25690872 Problem Bipolar disorder F31.9 Active 137 00011 Problem History of AK (myocardial infarction) I25.2 Active 766089350 Problem Claudication I73.9 Active 6660167 00 Problem Tobacco use Z72.0 Active 06056536 0 Problem Other chronic pain G89.29 Active 8 9492002 Problem Hyperlipidemia E78.5 Active 92442 004 Problem Popliteal artery aneurysm, bilateral I72.4 Active 51430028 Problem Essential hypertension I10 Active 39354040 Problem Bipolar affective disorder, currently depressed, mild F31.31 Active 797025438 Problem Bipolar disorder, in partial remission, most rec ent episode depressed F31.75 Active 61010095 Problem Intrinsic eczema L20.84 Active 240 44233 Problem Bipolar disorder, current ep isode depressed, severe, without psychotic features F31.4 Active 415112263 ALLERGIES No Information ENCOUNTERS Encounter Location Date Diagnosis [facility] [address] [id number] [place] [address] Apr, 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 [address] [facility] [id number] [address] [place] [address] Feb, Right wrist pain M25.531 [facility] [address] [address] Feb, Right wrist pain M25.531 [facility] [address] [address] 2019 Right wrist pain M25.531 [facility] [address] [address] Feb, Right wrist pain M25.531 [facility] [address] [address] Feb, Low back pain M54.5 [facility] [address] [address] Jan, Low back pain M54.5 [place] [address] [address] Jan, Low back pain M54.5 [facility] [address] [address] Jan, Low back pain M54.5 [facility] [address] [address] Jan, [facility] [address] [address] Jan, Low back pain M54.5 [place] [address] [address] Jan, Bipolar affective disorder, currently de pressed, mild F31.31 [place] [address] [address] Jan, Bipolar disorder, in partial remission, most recent episode depressed F31.75 ; Hyperlipidemia E78.5 [address] Essential hypertension I10 [facility] [address] [address] Jan, [facility] [address] [address] Jan, Low back pain M54.5 [place] [address] [address] 15 Dec, 2018 Bipolar disorder, current episode depres sed, severe, without psychotic features F31.4 [place] [address] [address] 15 Dec, 2018 Chest pain, non-cardiac R07.89 ; Hyperli pidemia E78.5 ; Muscle spasm of back M62.830 ; Low back pain M54.5 ; Other chronic pain G89.29 ; Pain in thoracic spine M54.6 ; Essential hypertension I10 and Peripheral arterial disease I73.[address] [address] Dec, [place] [address] [address] Dec, [address] [address] Nov, Hyperlipidemia E78.5 and Essential hyper tension I10 [place] [address] [address] Nov, [address] [address] Nov, Hyperlipidemia E78.5 ; Essential hyperte nsion I10 ; Peripheral arterial disease I73.9 ; Tobacco use Z72.0 ; Bipolar disorder, current episode depressed, severe, without psychotic features F31.4 ; Diarrhea, unspecified type R19.7 ; Encounter for screening for lung cancer Z12.2 and Encounter for immunization Z23 [place] [address] [address] Nov, [address] [address] Nov, [address] [address] Nov, Bipolar disorder, in partial remission, most recent episode depressed F31.75 ; Hyperlipidemia E78.5 and Essential hypertension I10 [facility] [address] [place] [id number] [place] [address] Nov, [facility] [address] [address] Nov, [facility] [address] [address] Oct, [facility] [address] [address] Oct, [facility] [address] [address] Oct, [facility] [address] [address] Sep, [facility] [address] [address] Aug, Bipolar disorder, in partial remission, most recent episode depressed F31.75 ; Hyperlipidemia E78.5 and Essential hypertension I10 [facility] [address] [address] Jul, [facility] [address] [address] June, Strain of left hamstring muscle, subsequ ent encounter S76.312D [place] [address] [address] June, Bipolar disorder, in partial remission, most recent episode depressed F31.75 ; Hyperlipidemia E78.5 and Essential hypertension I10 [facility] [address] [address] May, Right wrist pain M25.531 [facility] [address] [address] May, Right wrist pain M25.531 [facility] [address] [facility] [id number] [address] [place] [address] May, Sebaceous cyst of right axil la L72.3 [facility] [address] [id number] [place] [address] Apr, [facility] [address] [id number] [place] [address] Apr, Peripheral arterial disease I73.9 [facility] [address] [id number] [place] [address] 14 Apr, 2018 Peripheral arterial disease I73.9 [facility] [address] [id number] [place] [address] 13 Apr, 2018 Bipolar disorder, in partial remission, most recent episode depressed F31.75 ; Hyperlipidemia E78.5 and Essential hypertension I10 [facility] [address] [place] [id number] [place] [address] Mar, [facility] [address] [place] [id number] [place] [address] Mar, [facility] [address] [place] [id number] [place] [address] Mar, [facility] [address] [id number] [place] [address] Feb, Bipolar disorder, in partial remission, most recent episode depressed F31.75 ; Hyperlipidemia E78.5 and Essential hypertension I10 [facility] [address] [place] [id number] [place] [address] Dec, Bipolar disorder, in partial remission, most recent episode depressed F31.75 ; Hyperlipidemia E78.5 and Essential hypertension I10 [facility] [address] [place] [id number] [place] [address] Nov, [facility] [address] [id number] [place] [address] Nov, [facility] [address] [place] [id number] [place] [address] Nov, Bipolar disorder, in partial remission, most recent episode depressed F31.75 ; Hyperlipidemia E78.5 and Essential hypertension I10 [facility] [address] [place] [id number] [place] [address] Nov, 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 [facility] [address] [address] Oct, Essential hypertension I10 and [address] demia E78.5 [facility] [address] [address] Sep, [place] [address] [address] Sep, [place] [address] [address] Sep, Skin lesion of foot L98.9 [place] [address] [address] Aug, Bipolar disorder, in partial remission, most recent episode depressed F31.75 [place] [address] [address] Jul, Bipolar disorder, in partial remission, most recent episode depressed F31.75 [place] [address] [address] Jul, Peripheral arterial disease I73.9 [place] [address] [address] Apr, Bipolar disorder, in partial remission, most recent episode depressed F31.75 [place] [address] [address] Apr, Peripheral arterial disease I73.9 [place] [address] [address] Apr, Peripheral arterial disease I73.9 ; Esse ntial hypertension I10 ; Hyperlipidemia E78.5 ; Bipolar disorder, in partial remission, most recent episode depressed F31.75 ; Tobacco use Z72.0 and Intrinsic eczema L20.84 [place] [address] [place] [id number] [place] [address] Feb, Bipolar disorder, in partial remission, most recent episode depressed F31.75 [place] [address] [address] Dec, Bipolar disorder, in partial remission, most recent episode depressed F31.75 [place] [address] [address] Nov, [place] [address] [address] Oct, Hyperlipidemia E78.5 ; Essential hyperte nsion I10 ; Peripheral arterial disease I73.9 ; 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 and Encounter for immunization Z23 [place] [address] [address] Oct, 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 [place] [address] [address] Sep, Bipolar affective disorder, currently de pressed, mild F31.[address] [address] Sep, Bipolar affective disorder, currently de pressed, mild F31.31 [place] [address] [address] Aug, Bipolar affective disorder, currently de pressed, mild F31.31 [place] [address] [address] Aug, Bipolar affective disorder, currently de pressed, mild F31.31 [place] [address] [address] Aug, Bipolar 1 disorder, mixed, partial remis ernestine F31.77 [place] [address] [address] Jul, Claudication I73.[address] [address] Jul, Hyperlipidemia E78.5 [place] [address] [address] June, [place] [address] June, [place] [address] [address] May, Bipolar 1 disorder, mixed, partial remis ernestine F31.77 [place] [address] [address] May, Bipolar 1 disorder, mixed, partial remis ernestine F31.77 [place] [address] [address] Apr, 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 [place] [address] [address] 28 Mar, 2016 Bipolar 1 disorder, mixed, partial remis ernestine F31.77 and Alcohol dependence, uncomplicated F10.20 [place] [address] [address] 27 Mar, 2016 Hyperlipidemia E78.5 [place] [address] [address] Mar, Essential hypertension I10 ; Tobacco use Z72.0 and Claudication I73.[address] [address] Mar, [place] [address] [address] Feb, Bipolar 1 disorder, mixed, partial remis ernestine F31.77 and Alcohol dependence in remission F10.21 [place] [address] [address] Jan, Peripheral arterial disease I73.9 and Bi polar 1 disorder, mixed, partial remission F31.77 [place] [address] [address] Jan, [place] [address] [address] 05 Nov, 2015 [place] [address] [address] Oct, Bipolar disorder, unspecified F31.9 and Alcohol dependence, uncomplicated F10.20 [place] [address] [address] Sep, Hyperlipidemia E78.5 ; Essential hyperte nsion I10 ; Peripheral arterial disease I73.9 and Tobacco use Z72.0 [place] [address] [address] Sep, Hyperlipidemia E78.5 [place] [address] [address] Aug, Bipolar 1 disorder, mixed, partial remis ernestine F31.77 and Alcohol dependence, uncomplicated F10.20 [place] [address] [address] June, Bipolar 1 disorder, mixed, partial remis ernestine F31.77 [place] [address] [address] May, Hypertension I10 ; Hyperlipidemia E78.5 ; PVD (peripheral vascular disease) I73.9 and Claudication I73.9 [place] [address] [address] Apr, [place] [address] [address] Apr, [place] [address] [address] Mar, [place] [address] [address] Mar, Hyperlipidemia E78.5 [place] [address] [address] Mar, Hyperlipidemia E78.5 and Peripheral summer rial disease I73.9 [place] [address] [address] Feb, Hyperlipidemia E78.5 ; Essential hyperte nsion I10 and Peripheral arterial disease I73.9 [place] [address] [address] 15 Jan, 2015 [place] [address] [address] Jan, Bipolar disorder, unspecified F31.9 ; An xiety disorder, unspecified F41.9 ; Cannabis abuse, uncomplicated F12.10 and Alcohol dependence, uncomplicated F10.20 [place] [address] [address] Jan, Peripheral arterial disease I73.9 [place] [address] [address] Dec, Bipolar 1 disorder, mixed, partial remis ernestine F31.77 [place] [address] [address] Nov, [place] [address] [address] Nov, Unspecified essential hypertension 401.9 [place] [address] [address] Sep, Bipolar disorder, unspecified 296.80 [place] [address] [address] Aug, Unspecified essential hypertension 401.9 [place] [address] [address] Aug, Bipolar disorder, unspecified 296.80 ; O ther and unspecified alcohol dependence, unspecified drunkenness 303.90 and Nondependent cannabis abuse, unspecified 305.20 [place] [address] [address] Aug, [address] [address] Jul, Physical exam, annual V70.0 [place] [address] [address] Jul, [place] [address] [place] [address] June, Bipolar disorder, unspecified 296.80 ; A nxiety state, unspecified 300.00 ; Cannabis abuse 305.20 and Alcohol dependence 303.90 [facility] [address] [place] [id number] [place] [address] May, [facility] [id number] [place] [address] May, [facility] [address] [address] Apr, [facility] [address] [address] Apr, [facility] [address] [address] Apr, [facility] [address] [address] Apr, [facility] [address] [address] Apr, [facility] [address] [id number] [place] [address] Apr, [facility] [address] [address] Apr, [facility] [address] [place] [id number] [place] [address] Apr, [facility] [address] [address] Apr, [facility] [address] [place] [id number] [place] [address] Apr, [facility] [address] [address] Apr, [facility] [address] [place] [address] [id number] [place] [address] Mar, [facility] [address] [address] Mar, [facility] [address] [id number] [place] [address] Mar, [facility] [address] [id number] [place] [address] Mar, [facility] [address] [id number] [place] [address] Feb, [facility] [address] [id number] [place] [address] Feb, [facility] [address] [id number] [place] [address] Feb, [facility] [address] [id number] [place] [address] Feb, [facility] [address] [id number] [place] [address] Feb, [facility] [address] [place] [id number] [place] [address] Feb, [facility] [address] [id number] [place] [address] Feb, [facility] [address] [id number] [place] [address] Feb, [facility] [address] [id number] [place] [address] Feb, [facility] [address] [id number] [place] [address] Jan, [facility] [address] [id number] [place] [address] Jan, [facility] [address] [id number] [place] [address] Nov, [facility] [address] [id number] [place] [address] Nov, [facility] [address] [id number] [place] [address] Nov, [facility] [address] [id number] [place] [address] Nov, [facility] [address] [id number] [place] [address] 16 Oct, 2013 [facility] [address] [facility] [id number] [place] [address] 16 Oct, 2013 [facility] [address] [id number] [place] [address] 16 Oct, 2013 [facility] [address] [id number] [place] [address] 16 Oct, 2013 [facility] [address] [facility] [id number] [place] [address] Oct, 2013 [facility] [address] [id number] [place] [address] Oct, 2013 [facility] [address] [id number] [place] [address] Oct, 2013 [facility] [address] [id number] [place] [address] Oct, 2013 [facility] [address] [id number] [place] [address] Sep, [facility] [address] [id number] [place] [address] Sep, [facility] [address] [id number] [place] [address] Sep, [facility] [address] [id number] [place] [address] Sep, [facility] [address] [id number] [place] [address] Sep, [facility] [address] [id number] [place] [address] Sep, [facility] [address] [id number] [place] [address] Sep, [facility] [address] [id number] [place] [address] Sep, [facility] [address] [id number] [place] [address] Sep, [facility] [address] [id number] [place] [address] Sep, [facility] [address] [facility] [id number] [place] [address] Sep, [facility] [address] [id number] [place] [address] Sep, [facility] [address] [facility] [id number] [place] [address] Sep, [facility] [address] [facility] [id number] [place] [address] Sep, [facility] [address] [id number] [place] [address] Aug, [facility] [address] [id number] [place] [address] Aug, [facility] [address] [id number] [place] [address] Aug, [facility] [address] [id number] [place] [address] Aug, [facility] [address] [id number] [place] [address] Jul, [facility] [address] [id number] [place] [address] Jul, [facility] [address] [id number] [place] [address] May, [facility] [address] [facility] [id number] [place] [address] May, [facility] [address] [id number] [place] [address] May, [facility] [address] [id number] [place] [address] May, [facility] [address] [id number] [place] [address] May, [facility] [address] [facility] [id number] [place] [address] 17 May, 2013 [facility] [address] [id number] [place] [address] 16 May, 2013 [facility] [address] [id number] [place] [address] 16 May, 2013 [facility] [address] [id number] [place] [address] 15 May, 2013 [facility] [address] [facility] [id number] [place] [address] 15 May, 2013 [facility] [address] [id number] [place] [address] 15 May, 2013 [facility] [address] [id number] [place] [address] 15 May, 2013 [facility] [address] [id number] [place] [address] 08 May, 2013 [facility] [address] [id number] [place] [address] 08 May, 2013 [facility] [address] [id number] [place] [address] 11 Apr, 2013 [facility] [address] [id number] [place] [address] Apr, [facility] [address] [id number] [place] [address] Apr, [facility] [address] [id number] [place] [address] Apr, [facility] [address] [id number] [place] [address] 16 Feb, 2013 [facility] [address] [id number] [place] [address] 16 Feb, 2013 [facility] [address] [id number] [place] [address] Jan, [facility] [address] [id number] [place] [address] Jan, 2012 [facility] [address] [id number] [place] [address] Jan, [facility] [address] [id number] [place] [address] Jan, [facility] [address] [id number] [place] [address] Jan, [facility] [address] [id number] [place] [address] Jan, [facility] [address] [id number] [place] [address] Jan, [facility] [address] [id number] [place] [address] Jan, [facility] [address] [id number] [place] [address] Dec, [facility] [address] [id number] [place] [address] Dec, [facility] [address] [id number] [place] [address] Dec, [facility] [id number] [place] [address] Dec, [facility] [address] [id number] [place] [address] Dec, [facility] [address] [id number] [place] [address] Dec, [facility] [address] [id number] [place] [address] 07 Dec, 2012 [facility] [address] [id number] [place] [address] Dec, [facility] [address] [id number] [place] [address] 07 Dec, 2012 [facility] [address] [id number] [place] [address] Nov, [facility] [address] [id number] [place] [address] 31 Nov, 2012 [facility] [address] [facility] [id number] [place] [address] 29 Nov, 2012 [facility] [address] [id number] [place] [address] 29 Nov, 2012 [facility] [address] [id number] [place] [address] Nov, 2012 [facility] [address] [id number] [place] [address] Nov, 2012 [facility] [address] [id number] [place] [address] Nov, 2012 [facility] [address] [id number] [place] [address] 18 Nov, 2012 [facility] [address] [id number] [place] [address] 16 Nov, 2012 [facility] [address] [id number] [place] [address] 16 Nov, 2012 [facility] [address] [id number] [place] [address] Nov, 2012 [facility] [address] [id number] [place] [address] 09 Nov, 2012 [facility] [address] [id number] [place] [address] Nov, 2012 [facility] [address] [id number] [place] [address] 30 Oct, 2012 [facility] [address] [facility] [id number] [place] [address] 25 Sep, 2012 [facility] [address] [id number] [place] [address] 17 Sep, 2012 [facility] [address] [id number] [place] [address] 13 Sep, 2012 [facility] [address] [id number] [place] [address] 10 Oct, 2012 [facility] [address] [facility] [id number] [place] [address] 10 Oct, 2012 [facility] [address] [facility] [id number] [place] [address] 10 Oct, 2012 [facility] [address] [id number] [place] [address] 16 Sep, 2012 [facility] [address] [id number] [place] [address] 15 Sep, 2012 [facility] [facility] [address] [facility] [id number] [place] [address] Sep, [facility] [address] [id number] [place] [address] 29 Aug, 2012 [facility] [address] [id number] [place] [address] Aug, [facility] [address] [id number] [place] [address] 17 Aug, 2012 [facility] [address] [id number] [place] [address] 16 Aug, 2012 [facility] [address] [id number] [place] [address] Aug, [facility] [address] [id number] [place] [address] Aug, [facility] [address] [id number] [place] [address] Aug, [facility] [address] [id number] [place] [address] Jul, [facility] [address] [facility] [id number] [place] [address] Jul, [facility] [address] [id number] [place] [address] 14 Jul, 2012 [facility] [address] [id number] [place] [address] 13 Jul, 2012 [facility] [address] [id number] [place] [address] Jul, [facility] [address] [id number] [place] [address] Jul, [facility] [address] [id number] [place] [address] Jul, [facility] [address] [id number] [place] [address] Jul, [facility] [address] [id number] [place] [address] 10 Jul, 2012 [facility] [address] [id number] [place] [address] Jul, [facility] [address] [id number] [place] [address] Jul, [facility] [address] [id number] [place] [address] Jul, [facility] [address] [id number] [place] [address] Jul, [facility] [address] [id number] [place] [address] June, [facility] [address] [id number] [place] [address] June, [facility] [address] [id number] [place] [address] June, [facility] [address] [id number] [place] [address] June, [facility] [address] [id number] [place] [address] June, [facility] [address] [id number] [place] [address] June, [facility] [address] [id number] [place] [address] June, [facility] [address] [id number] [place] [address] June, [facility] [address] [id number] [place] [address] June, [facility] [address] [facility] [id number] [place] [address] May, [facility] [address] [id number] [place] [address] May, [facility] [address] [id number] [place] [address] May, [facility] [address] [id number] [place] [address] May, [facility] [address] [id number] [place] [address] May, [facility] [address] [id number] [place] [address] May, [facility] [address] [id number] [place] [address] May, [facility] [address] [id number] [place] [address] May, [facility] [address] [id number] [place] [address] May, [facility] [address] [id number] [place] [address] Apr, [facility] [address] [id number] [place] [address] Apr, [facility] [address] [id number] [place] [address] Apr, [facility] [address] [facility] [id number] [place] [address] Apr, [facility] [address] [facility] [id number] [place] [id number] Mar, [facility] [address] [id number] [place] [address] Mar, [facility] [address] [id number] [place] [address] Feb, [facility] [address] [id number] [place] [address] Feb, [facility] [address] [id number] [place] [address] 14 Feb, 2012 [facility] [address] [id number] [place] [address] 10 Feb, 2012 [facility] [address] [id number] [place] [address] Feb, [facility] [address] [id number] [place] [address] Feb, [facility] [address] [id number] [place] [address] Feb, [facility] [address] [id number] [place] [address] Dec, [facility] [id number] [place] [address] Dec, [facility] [address] [id number] [place] [address] Dec, [facility] [address] [id number] [place] [address] Dec, [facility] [address] [id number] [place] [address] Dec, [facility] [address] [id number] [place] [address] Dec, [facility] [address] [id number] [place] [address] Dec, [facility] [address] [id number] [place] [address] Dec, [facility] [address] [id number] [place] [address] Nov, [facility] [address] [id number] [place] [address] Nov, [facility] [address] [id number] [place] [address] Nov, [facility] [address] [facility] [id number] [place] [address] Nov, IMMUNIZATIONS No Known Immunizations SOCIAL HISTORY Never Assessed REASON FOR VISIT PLAN OF CARE VITAL SIGNS MEDICATIONS Unknown Medications RESULTS No Results PROCEDURES No Known procedures INSTRUCTIONS MEDICATIONS ADMINISTERED No Known Medications MEDICAL (GENERAL) HISTORY Type Description Date Medical History hypertension Medical History hyperlipidemia Medical History bipolar disorder Medical History cardiovascular disease-heart attack and stroke Medical History Pure hypercholesterolemia Surgical History appendectomy Surgical History vasectomy-09/01/[address] Flores at [facility] Surgical History Stent placed in groin on right side 2014 Surgical History Blood clot removed from right knee 2014 Surgical History Balloon angioplasty [facility]- Dr. Rebolledo 03/10 Surgical History right wrist 10/08/18 Hospitalization History Hospitalization for surgery only
--- OUTSIDE RECORDS SUMMARY | 2019-05-27 20:04 | XMS REPORT ---
Author Author Ryan Amaro Organization [facility] Address Unknown Phone Unavailable Care Team Providers Care Cashier Receptionist Name Role Phone Migration, Doctor Unavailable Unavailable PROBLEMS Type Condition ICD9-CM Code [id number] Code Onset Dates Condition S tatus SNOMED Code Problem Peripheral arterial disease I73.9 Ac tive 800114705 Problem 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 Active 301 137634 Problem Schizoaffective disorder F25.9 Activ e 15842548 Problem Bipolar disorder F31.9 Active 137 88781 Problem History of [place] (myocardial infarction) I25.2 Active 760237957 Problem Claudication I73.9 Active 1367503 00 Problem Tobacco use Z72.0 Active 32906703 0 Problem Other chronic pain G89.29 Active 8 9227250 Problem Hyperlipidemia E78.5 Active 17862 004 Problem Popliteal artery aneurysm, bilateral I72.4 Active 20839291 Problem Essential hypertension I10 Active 84992983 Problem Bipolar affective disorder, currently depressed, mild F31.31 Active 094255982 Problem Bipolar disorder, in partial remission, most rec ent episode depressed F31.75 Active 09270240 Problem Intrinsic eczema L20.84 Active 240 29146 Problem Bipolar disorder, current ep isode depressed, severe, without psychotic features F31.4 Active [id number] ALLERGIES No Information ENCOUNTERS Encounter Location Date Diagnosis [facility] [address] [id number] [place] [address] Apr, [facility] [address] [id number] [place] [address] Mar, Essential hypertension I10 ; Peripheral arterial disease I73.9 ; 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 and Popliteal artery aneurysm, bilateral I72.4 [facility] [address] [facility] [id number] [place] [address] Feb, Right wrist pain M25.531 [facility] [address] [address] 17 Feb, 2019 Right wrist pain M25.531 [facility] [address] [address] 2019 Right wrist pain M25.531 [facility] [address] [address] Feb, Right wrist pain M25.531 [facility] [address] [address] Feb, Low back pain M54.5 [facility] [address] [address] Jan, Low back pain M54.5 [facility] [address] [address] Jan, Low back pain M54.5 [place] [address] [address] Jan, Low back pain M54.5 [facility] [address] [address] Jan, [place] [address] [address] Jan, Low back pain M54.5 [place] [address] [address] Jan, Bipolar affective disorder, currently de pressed, mild F31.31 [place] [address] [address] Jan, Bipolar disorder, in partial remission, most recent episode depressed F31.75 ; Hyperlipidemia E78.5 and Essential hypertension I10 [place] [address] [address] Jan, [place] [address] [address] Jan, Low back pain M54.5 [facility] [address] [address] 15 Dec, 2018 Bipolar disorder, current episode depres sed, severe, without psychotic features F31.4 [place] [address] [address] 15 Dec, 2018 Chest pain, non-cardiac R07.89 ; Hyperli pidemia E78.5 ; Muscle spasm of back M62.830 ; Low back pain M54.5 ; Other chronic pain G89.29 ; Pain in thoracic spine M54.6 ; Essential hypertension I10 and Peripheral arterial disease I73.9 [place] [address] [address] Dec, [place] [address] [address] Dec, [place] [address] [address] Nov, Hyperlipidemia E78.5 and Essential hyper tension I10 [place] [address] [address] Nov, [place] [address] [address] Nov, Hyperlipidemia E78.5 ; Essential hyperte nsion I10 ; Peripheral arterial disease I73.9 ; Tobacco use Z72.0 ; Bipolar disorder, current episode depressed, severe, without psychotic features F31.4 ; Diarrhea, unspecified type R19.7 ; Encounter for screening for lung cancer Z12.2 and Encounter for immunization Z23 [place] [address] [address] Nov, [place] [address] [address] Nov, [address] [address] Nov, Bipolar disorder, in partial remission, most recent episode depressed F31.75 ; Hyperlipidemia E78.5 and Essential hypertension I10 [place] [address] [address] Nov, [facility] [id number] [place] [address] Nov, [facility] [id number] [place] [address] Oct, [facility] [id number] [place] [address] Oct, [facility] [address] [address] Oct, [facility] [address] [address] Sep, [facility] [address] [address] Aug, Bipolar disorder, in partial remission, most recent episode depressed F31.75 ; Hyperlipidemia E78.5 and Essential hypertension I10 [facility] [address] [address] Jul, [facility] [address] [address] June, Strain of left hamstring muscle, subsequ ent encounter S76.312D [facility] [address] [address] June, Bipolar disorder, in partial remission, most recent episode depressed F31.75 ; Hyperlipidemia E78.5 and Essential hypertension I10 [facility] [address] [address] May, Right wrist pain M25.531 [facility] [address] [address] May, Right wrist pain M25.531 [facility] [address] [facility] [id number] [address] [place] [address] May, Sebaceous cyst of right axil la L72.3 [facility] [address] [facility] [place] [address] Apr, [facility] [address] [address] Apr, Peripheral arterial disease I73.9 [facility] [address] [address] 14 Apr, 2018 Peripheral arterial disease I73.9 [facility] [address] [address] 13 Apr, 2018 Bipolar disorder, in partial remission, most recent episode depressed F31.75 ; Hyperlipidemia E78.5 and Essential hypertension I10 [facility] [address] [address] Mar, [facility] [address] [address] Mar, [facility] [address] [address] Mar, [facility] [address] [address] Feb, Bipolar disorder, in partial remission, most recent episode depressed F31.75 ; Hyperlipidemia E78.5 and Essential hypertension I10 [facility] [address] [address] Dec, Bipolar disorder, in partial remission, most recent episode depressed F31.75 ; Hyperlipidemia E78.5 and Essential hypertension I10 [facility] [address] [address] Nov, [facility] [address] [address] Nov, [facility] [address] [address] Nov, Bipolar disorder, in partial remission, most recent episode depressed F31.75 ; Hyperlipidemia E78.5 and Essential hypertension I10 [facility] [address] [address] Nov, 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 [facility] [address] [address] Oct, Essential hypertension I10 and Hyperlipi demia E78.5 [place] [address] [address] Sep, [facility] [address] [address] Sep, [place] [address] [address] Sep, Skin lesion of foot L98.9 [place] [address] [address] Aug, Bipolar disorder, in partial remission, most recent episode depressed F31.75 [place] [address] [address] Jul, Bipolar disorder, in partial remission, most recent episode depressed F31.75 [place] [address] [address] Jul, Peripheral arterial disease I73.9 [place] [address] [address] Apr, Bipolar disorder, in partial remission, most recent episode depressed F31.75 [place] [address] [address] Apr, Peripheral arterial disease I73.9 [place] [address] [address] Apr, Peripheral arterial disease I73.9 ; Esse ntial hypertension I10 ; Hyperlipidemia E78.5 ; Bipolar disorder, in partial remission, most recent episode depressed F31.75 ; Tobacco use Z72.0 and Intrinsic eczema L20.84 [place] [address] [address] Feb, Bipolar disorder, in partial remission, most recent episode depressed F31.75 [place] [address] [address] Dec, Bipolar disorder, in partial remission, most recent episode depressed F31.75 [place] [address] [address] Nov, [place] [address] [address] Oct, Hyperlipidemia E78.5 ; Essential hyperte nsion I10 ; Peripheral arterial disease I73.9 ; 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 and Encounter for immunization Z23 [place] [address] [address] Oct, 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 [place] [address] [address] Sep, Bipolar affective disorder, currently de pressed, mild F31.31 [place] [address] [address] Sep, Bipolar affective disorder, currently de pressed, mild F31.31 [place] [address] [address] Aug, Bipolar affective disorder, currently de pressed, mild F31.31 [place] [address] [address] Aug, Bipolar affective disorder, currently de pressed, mild F31.31 [place] [address] [address] Aug, Bipolar 1 disorder, mixed, partial remis ernestine F31.77 [place] [address] [address] Jul, Claudication I73.9 [place] [address] [address] Jul, Hyperlipidemia E78.5 [place] [address] [address] June, [place] [address] [address] June, [place] [address] [address] May, Bipolar 1 disorder, mixed, partial remis ernestine F31.77 [place] [address] [address] 03 May, 2016 Bipolar 1 disorder, mixed, partial remis ernestine F31.77 [place] [address] [address] Apr, 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 [place] [address] [address] 28 Mar, 2016 Bipolar 1 disorder, mixed, partial remis ernestine F31.77 and Alcohol dependence, uncomplicated F10.20 [place] [address] [address] Mar, Hyperlipidemia E78.5 [place] [address] [address] Mar, Essential hypertension I10 ; Tobacco use Z72.0 and Claudication I73.9 [place] [address] [address] Mar, [place] [address] [address] Feb, Bipolar 1 disorder, mixed, partial remis ernestine F31.77 and Alcohol dependence in remission F10.21 [place] [address] [address] Jan, Peripheral arterial disease I73.9 and Bi polar 1 disorder, mixed, partial remission F31.77 [place] [address] [address] Jan, [place] [address] [address] 05 Nov, 2015 [place] [address] [address] 13 Oct, 2015 Bipolar disorder, unspecified F31.9 and Alcohol dependence, uncomplicated F10.20 [place] [address] [address] Sep, Hyperlipidemia E78.5 ; Essential hyperte nsion I10 ; Peripheral arterial disease I73.9 and Tobacco use Z72.0 [place] [address] [address] Sep, Hyperlipidemia E78.5 [place] [address] [address] Aug, Bipolar 1 disorder, mixed, partial remis ernestine F31.77 and Alcohol dependence, uncomplicated F10.20 [place] [address] [address] June, Bipolar 1 disorder, mixed, partial remis ernestine F31.77 [place] [address] [address] May, Hypertension I10 ; Hyperlipidemia E78.5 ; PVD (peripheral vascular disease) I73.9 and Claudication I73.9 [place] [address] [address] Apr, [place] [address] [address] Apr, [place] [address] [address] Mar, [place] [address] [address] Mar, Hyperlipidemia E78.5 [place] [address] [address] Mar, Hyperlipidemia E78.5 and Peripheral summer rial disease I73.9 [place] [address] [address] Feb, Hyperlipidemia E78.5 ; Essential hyperte nsion I10 and Peripheral arterial disease I73.9 [place] [address] [address] Jan, [place] [address] [address] Jan, Bipolar disorder, unspecified F31.9 ; An xiety disorder, unspecified F41.9 ; Cannabis abuse, uncomplicated F12.10 and Alcohol dependence, uncomplicated F10.20 [place] [address] [address] Jan, Peripheral arterial disease I73.9 [place] [address] [address] Dec, Bipolar 1 disorder, mixed, partial remis ernestine F31.77 [place] [address] [address] Nov, [place] [address] [address] Nov, Unspecified essential hypertension 401.9 [place] [address] [address] Sep, Bipolar disorder, unspecified 296.80 [place] [address] [address] Aug, Unspecified essential hypertension 401.9 [place] [address] [address] Aug, Bipolar disorder, unspecified 296.80 ; O ther and unspecified alcohol dependence, unspecified drunkenness 303.90 and Nondependent cannabis abuse, unspecified 305.20 [place] [address] [address] Aug, [place] [address] [address] Jul, Physical exam, annual V70.0 [place] [address] [address] Jul, [place] [address] [address] June, Bipolar disorder, unspecified 296.80 ; A nxiety state, unspecified 300.00 ; Cannabis abuse 305.20 and Alcohol dependence 303.90 [facility] [place] [id number] [place] [address] 14 May, 2014 [facility] [id number] [place] [address] May, [facility] [id number] [place] [address] Apr, [facility] [id number] [place] [address] Apr, [facility] [id number] [place] [address] Apr, [facility] [id number] [place] [address] Apr, [facility] [id number] [place] [address] Apr, [facility] [id number] [place] [address] Apr, [facility] [id number] [place] [address] Apr, [facility] [id number] [place] [address] Apr, [facility] [id number] [place] [address] Apr, [facility] [id number] [place] [address] Apr, [facility] [id number] [place] [address] Apr, [facility] [id number] [place] [address] Mar, [facility] [id number] [place] [address] Mar, [facility] [id number] [place] [address] Mar, [facility] [place] [facility] [address] [id number] [place] [address] Mar, [facility] [place] [facility] [address] [id number] [place] [address] Feb, [facility] [place] [facility] [address] [id number] [place] [address] Feb, [facility] [place] [facility] [address] [id number] [place] [address] Feb, [facility] [place] [facility] [address] [id number] [place] [address] Feb, [facility] [place] [facility] [address] [id number] [place] [address] Feb, [facility] [place] [facility] [address] [id number] [place] [address] Feb, [facility] [place] [facility] [id number] [place] [address] Feb, [facility] [place] [facility] [address] [id number] [place] [address] Feb, [facility] [place] [facility] [address] [id number] [place] [address] Feb, [facility] [place] [facility] [address] [id number] [place] [address] Jan, [facility] [place] [facility] [address] [id number] [place] [address] Jan, [facility] [place] [facility] [address] [id number] [place] [address] Nov, [facility] [place] [facility] [address] [id number] [place] [address] Nov, [facility] [place] [facility] [address] [id number] [place] [address] Nov, [facility] [place] [facility] [address] [id number] [place] [address] Nov, [facility] [place] [facility] [address] [id number] [facility] [address] 16 Oct, 2013 [facility] [place] [facility] [address] [id number] [facility] [place] [address] 16 Oct, 2013 [facility] [place] [facility] [address] [facility] [id number] [place] [address] 16 Oct, 2013 [facility] [place] [facility] [address] [id number] [place] [address] 16 Oct, 2013 [facility] [place] [facility] [address] [facility] [id number] [place] [address] Oct, 2013 [facility] [place] [facility] [address] [id number] [place] [address] Oct, 2013 [facility] [place] [facility] [address] [id number] [place] [address] Oct, 2013 [facility] [place] [facility] [address] [id number] [place] [address] Oct, 2013 [facility] [place] [facility] [address] [id number] [place] [address] Sep, [facility] [place] [facility] [address] [id number] [place] [address] Sep, [facility] [place] [facility] [address] [id number] [place] [address] Sep, [facility] [place] [facility] [address] [id number] [place] [address] Sep, [facility] [place] [facility] [address] [id number] [place] [address] Sep, [facility] [place] [facility] [address] [id number] [place] [address] Sep, [facility] [place] [facility] [address] [id number] [place] [address] Sep, [facility] [place] [facility] [address] [id number] [place] [address] Sep, [facility] [place] [facility] [address] [id number] [place] [address] Sep, [facility] [place] [facility] [address] [id number] [place] [address] Sep, [facility] [place] [facility] [address] [id number] [place] [address] Sep, [facility] [place] [facility] [address] [id number] [place] [address] Sep, [facility] [place] [facility] [address] [id number] [place] [address] Sep, [facility] [place] [facility] [address] [id number] [place] [address] Sep, [facility] [place] [facility] [address] [id number] [place] [address] Aug, [facility] [place] [facility] [address] [id number] [place] [address] Aug, [facility] [place] [facility] [address] [id number] [place] [address] Aug, [facility] [place] [facility] [address] [id number] [place] [address] Aug, [facility] [place] [facility] [address] [id number] [place] [address] Jul, [facility] [place] [facility] [address] [id number] [place] [address] Jul, [facility] [place] [facility] [address] [id number] [place] [address] May, [facility] [place] [facility] [address] [id number] [place] [address] May, [facility] [place] [facility] [address] [id number] [place] [address] May, [facility] [place] [facility] [address] [id number] [place] [address] May, [facility] [place] [facility] [address] [id number] [place] [address] May, [facility] [place] [facility] [address] [id number] [place] [address] 17 May, 2013 [facility] [place] [facility] [address] [facility] [id number] [facility] [place] [address] 16 May, 2013 [facility] [place] [facility] [address] [facility] [id number] [place] [address] 16 May, 2013 [facility] [place] [facility] [address] [id number] [facility] [place] [address] 15 May, 2013 [facility] [place] [facility] [address] [id number] [place] [address] 15 May, 2013 [facility] [place] [facility] [address] [facility] [id number] [place] [address] 15 May, 2013 [facility] [place] [facility] [address] [id number] [facility] [place] [address] 15 May, 2013 [facility] [place] [facility] [address] [id number] [place] [address] 08 May, 2013 [facility] [place] [facility] [address] [id number] [place] [address] 08 May, 2013 [facility] [place] [facility] [address] [facility] [id number] [facility] [place] [address] 11 Apr, 2013 [facility] [place] [facility] [address] [id number] [facility] [place] [address] Apr, [facility] [place] [facility] [address] [id number] [place] [address] Apr, [facility] [place] [facility] [address] [id number] [place] [address] Apr, [facility] [place] [facility] [address] [facility] [id number] [place] [address] 16 Feb, 2013 [facility] [place] [facility] [address] [id number] [place] [address] Feb, [facility] [place] [facility] [address] [id number] [place] [address] Jan, [facility] [address] [id number] [place] [address] Jan, [facility] [address] [id number] [place] [address] 17 Jan, 2012 [facility] [address] [id number] [place] [address] 17 Jan, 2012 [facility] [address] [id number] [place] [address] Jan, [facility] [address] [id number] [place] [address] Jan, [facility] [address] [id number] [place] [address] Jan, [facility] [address] [id number] [place] [address] Jan, [facility] [address] [id number] [place] [address] Dec, [facility] [id number] [place] [address] Dec, [facility] [address] [id number] [place] [address] Dec, [facility] [address] [id number] [place] [address] Dec, [facility] [address] [id number] [place] [address] Dec, [facility] [address] [id number] [place] [address] Dec, [facility] [address] [id number] [place] [address] Dec, [facility] [address] [id number] [place] [address] Dec, [facility] [id number] [place] [address] Dec, [facility] [address] [id number] [place] [address] Nov, [facility] [address] [id number] [place] [address] Nov, [facility] [address] [id number] [place] [address] 29 Nov, 2012 [facility] [address] [id number] [place] [address] 29 Nov, 2012 [facility] [address] [id number] [place] [address] Nov, 2012 [facility] [address] [id number] [place] [address] Nov, 2012 [facility] [address] [id number] [place] [address] Nov, 2012 [facility] [address] [id number] [place] [address] Nov, 2012 [facility] [address] [id number] [place] [address] Nov, 2012 [facility] [address] [facility] [id number] [place] [address] 16 Nov, 2012 [facility] [place] [facility] [address] [id number] [place] [address] Nov, 2012 [facility] [place] [facility] [address] [id number] [place] [address] Nov, 2012 [facility] [place] [facility] [address] [id number] [place] [address] Nov, 2012 [facility] [place] [facility] [address] [id number] [place] [address] 30 Oct, 2012 [facility] [place] [facility] [address] [id number] [place] [address] 25 Sep, 2012 [facility] [place] [facility] [address] [id number] [place] [address] 17 Sep, 2012 [facility] [place] [facility] [address] [id number] [place] [address] 13 Sep, 2012 [facility] [place] [facility] [address] [id number] [place] [address] 10 Sep, 2012 [facility] [place] [facility] [address] [id number] [place] [address] 10 Sep, 2013 [facility] [place] [facility] [address] [id number] [facility] [place] [place] [address] 10 Oct, 2012 [facility] [place] [facility] [address] [facility] [id number] [place] [address] 16 Sep, 2012 [facility] [place] [facility] [address] [facility] [id number] [facility] [place] [address] 15 Sep, 2012 [facility] [place] [facility] [address] [facility] [id number] [place] [address] Sep, [facility] [place] [facility] [address] [facility] [id number] [place] [address] 29 Aug, 2012 [facility] [place] [facility] [address] [facility] [id number] [place] [address] Aug, [facility] [place] [facility] [address] [facility] [id number] [facility] [place] [address] 17 Aug, 2012 [facility] [place] [facility] [address] [id number] [facility] [place] [address] 16 Aug, 2012 [facility] [place] [facility] [address] [facility] [id number] [facility] [place] [address] Aug, [facility] [place] [facility] [address] [id number] [facility] [place] [address] Aug, [facility] [place] [facility] [address] [id number] [facility] [place] [address] Aug, [facility] [place] [facility] [address] [id number] [facility] [place] [address] Jul, [facility] [place] [facility] [address] [facility] [id number] [facility] [place] [place] [address] Jul, [facility] [place] [facility] [address] [id number] [facility] [place] [place] [address] 14 Jul, 2012 [facility] [place] [facility] [address] [facility] [id number] [facility] [place] [address] Jul, [facility] [place] [facility] [address] [id number] [facility] [place] [place] [address] Jul, [facility] [place] [facility] [address] [id number] [place] [address] 13 Jul, 2012 [facility] [place] [facility] [address] [facility] [id number] [facility] [place] [place] [address] Jul, [facility] [place] [facility] [address] [id number] [place] [address] Jul, [facility] [place] [facility] [address] [id number] [place] [address] Jul, [facility] [place] [facility] [address] [id number] [place] [address] Jul, [facility] [place] [facility] [address] [id number] [place] [address] Jul, [facility] [place] [facility] [address] [id number] [place] [address] Jul, [facility] [place] [facility] [address] [id number] [place] [address] Jul, [facility] [place] [facility] [address] [id number] [place] [address] June, [facility] [place] [facility] [address] [id number] [place] [address] June, [facility] [place] [facility] [address] [id number] [place] [address] June, [facility] [place] [facility] [address] [id number] [place] [address] June, [facility] [place] [facility] [address] [id number] [place] [address] June, [facility] [place] [facility] [address] [id number] [place] [address] June, [facility] [place] [facility] [address] [id number] [place] [address] June, [facility] [place] [facility] [address] [id number] [place] [address] June, [facility] [place] [facility] [address] [id number] [place] [address] June, [facility] [place] [facility] [address] [id number] [place] [address] May, [facility] [place] [facility] [address] [id number] [place] [address] May, [facility] [place] [facility] [address] [id number] [place] [address] May, [facility] [place] [facility] [address] [id number] [place] [address] May, [facility] [place] [facility] [address] [id number] [place] [address] 15 May, 2012 [facility] [place] [facility] [address] [id number] [place] [address] May, [facility] [place] [facility] [address] [id number] [place] [address] May, [facility] [place] [facility] [address] [id number] [place] [address] May, [facility] [place] [facility] [address] [id number] [place] [address] May, [facility] [place] [facility] [address] [id number] [place] [address] Apr, [facility] [place] [facility] [address] [id number] [place] [address] Apr, [facility] [place] [facility] [address] [id number] [place] [address] Apr, [facility] [place] [facility] [address] [id number] [place] [address] Apr, [facility] [place] [facility] [address] [id number] [place] [id number] Mar, [facility] [place] [facility] [address] [id number] [place] [address] Mar, [facility] [place] [facility] [address] [id number] [place] [address] Feb, [facility] [place] [facility] [address] [id number] [place] [address] 14 Feb, 2012 [facility] [place] [facility] [address] [id number] [place] [address] 14 Feb, 2012 [facility] [place] [facility] [address] [id number] [place] [address] Feb, [facility] [place] [facility] [address] [id number] [place] [address] Feb, [facility] [place] [facility] [address] [id number] [place] [address] Feb, [facility] [place] [facility] [address] [id number] [place] [address] Feb, [facility] [place] [facility] [address] [id number] [place] [address] Dec, [facility] [place] [facility] [address] [id number] [place] [address] Dec, [facility] [place] [facility] [id number] [place] [address] Dec, [facility] [place] [facility] [address] [id number] [place] [address] Dec, [facility] [place] [facility] [address] [id number] [place] [address] Dec, [facility] [place] [facility] [address] [id number] [place] [address] 16 Dec, 2011 [facility] [place] [facility] [id number] [place] [address] Dec, [facility] [place] [facility] [address] [id number] [place] [address] Dec, [facility] [place] [facility] [address] [id number] [place] [address] Nov, [facility] [place] [facility] [address] [id number] [place] [address] Nov, [facility] [place] [facility] [address] [id number] [place] [address] Nov, [facility] [place] [facility] [address] [id number] [place] [address] Nov, IMMUNIZATIONS No Known Immunizations SOCIAL HISTORY Never Assessed REASON FOR VISIT PLAN OF CARE VITAL SIGNS Weight 189 lbs 2013-06-05 Temperature 98.3 degrees Fahrenheit 2013-06-05 Heart Rate 72 bpm 2013-06-05 Respiratory Rate 28 2013-06-05 Blood pressure systolic 130 mmHg 2013-06-05 Blood pressure diastolic 78 mmHg 2013-06-05 MEDICATIONS Unknown Medications RESULTS No Results PROCEDURES No Known procedures INSTRUCTIONS MEDICATIONS ADMINISTERED No Known Medications MEDICAL (GENERAL) HISTORY Type Description Date Medical History hypertension Medical History hyperlipidemia Medical History bipolar disorder Medical History cardiovascular disease-heart attack and stroke Medical History Pure hypercholesterolemia Surgical History appendectomy Surgical History vasectomy-09/01/[address] Flores at [facility] Surgical History Stent placed in groin on right side 2014 Surgical History Blood clot removed from right knee 2014 Surgical History Balloon angioplasty SFA- Dr. Rebolledo 03/10 Surgical History right wrist 10/08/18 Hospitalization History Hospitalization for surgery only
--- OUTSIDE RECORDS SUMMARY | 2019-05-27 20:04 | XMS REPORT ---
Author Author Ryan PITT Organization [facility] Address [address] [place] [address] Care Team Providers Care Behavioral Intervention Specialist Name Role Phone YOANDYCHRISJERRY Unavailable PROBLEMS Type Condition ICD9-CM Code CQY49-EY Code Onset Dates Condition S tatus SNOMED Code Problem Peripheral arterial disease I73.9 Ac tive 282245516 Problem 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 Active 301 500011 Problem Schizoaffective disorder F25.9 Activ e 43227464 Problem Bipolar disorder F31.9 Active 137 60333 Problem History of AL (myocardial infarction) I25.2 Active 481273350 Problem Claudication I73.9 Active 8185091 00 Problem Tobacco use Z72.0 Active 60521493 0 Problem Other chronic pain G89.29 Active 8 4541520 Problem Hyperlipidemia E78.5 Active 11761 004 Problem Popliteal artery aneurysm, bilateral I72.4 Active 17284536 Problem Essential hypertension I10 Active 79001676 Problem Bipolar affective disorder, currently depressed, mild F31.31 Active 649287829 Problem Bipolar disorder, in partial remission, most rec ent episode depressed F31.75 Active 85211742 Problem Intrinsic eczema L20.84 Active 240 05859 Problem Bipolar disorder, current ep isode depressed, severe, without psychotic features F31.4 Active 125691470 ALLERGIES No Information ENCOUNTERS Encounter Location Date Diagnosis [facility] [address] [id number] [place] [address] Jul, [facility] [id number] [place] [address] May, [facility] [address] [id number] [place] [address] May, [facility] [address] [id number] [place] [address] Apr, Right wrist pain M25.531 [facility] [address] [address] 16 Apr, 2019 Bipolar disorder, in partial remission, most recent episode depressed F31.75 [facility] [address] [address] 06 Apr, 2019 Bipolar disorder, in partial remission, most recent episode depressed F31.75 ; Hyperlipidemia E78.5 and Essential hypertension I10 [facility] [address] [address] 03 Apr, 2019 [facility] [address] [address] 10 Mar, 2019 Essential hypertension I10 ; Peripheral arterial disease I73.9 ; 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 and Popliteal artery aneurysm, bilateral I72.4 [facility] [address] [facility] [id number] [address] [place] [address] Feb, Right wrist pain M25.531 [facility] [address] [address] Feb, Right wrist pain M25.531 [place] [address] [address] Feb, Right wrist pain M25.531 [place] [address] [address] Feb, Right wrist pain M25.531 [facility] [address] [address] Feb, Low back pain M54.5 [facility] [address] [address] Jan, Low back pain M54.5 [facility] [address] [address] Jan, Low back pain M54.5 [place] [address] [address] Jan, Low back pain M54.5 [place] [address] [address] Jan, [place] [address] [address] Jan, Low back pain M54.5 [place] [address] [address] Jan, Bipolar affective disorder, currently de pressed, mild F31.31 [place] [address] [address] 06 Jan, 2019 Bipolar disorder, in partial remission, most recent episode depressed F31.75 ; Hyperlipidemia E78.5 and Essential hypertension I10 [place] [address] [address] Jan, [place] [address] [address] Jan, Low back pain M54.5 [place] [address] [address] 15 Dec, 2018 Bipolar disorder, current episode depres sed, severe, without psychotic features F31.4 [place] [address] [address] 15 Dec, 2018 Chest pain, non-cardiac R07.89 ; Hyperli pidemia E78.5 ; Muscle spasm of back M62.830 ; Low back pain M54.5 ; Other chronic pain G89.29 ; Pain in thoracic spine M54.6 ; Essential hypertension I10 and Peripheral arterial disease I73.9 [place] [address] [address] Dec, [place] [address] [address] Dec, [place] [address] [address] Nov, Hyperlipidemia E78.5 and Essential hyper tension I10 [address] [place] [address] Nov, [facility] [address] [address] Nov, Hyperlipidemia E78.5 ; Essential hyperte nsion I10 ; Peripheral arterial disease I73.9 ; Tobacco use Z72.0 ; Bipolar disorder, current episode depressed, severe, without psychotic features F31.4 ; Diarrhea, unspecified type R19.7 ; Encounter for screening for lung cancer Z12.2 and Encounter for immunization Z23 [facility] [address] [address] Nov, [facility] [address] [address] Nov, [facility] [address] [address] Nov, Bipolar disorder, in partial remission, most recent episode depressed F31.75 ; Hyperlipidemia E78.5 and Essential hypertension I10 [facility] [address] [address] Nov, [facility] [address] [address] Nov, [facility] [address] [address] Oct, [facility] [address] [address] Oct, [facility] [address] [address] Oct, [facility] [address] [address] Sep, [facility] [address] [address] Aug, Bipolar disorder, in partial remission, most recent episode depressed F31.75 ; Hyperlipidemia E78.5 and Essential hypertension I10 [facility] [address] [address] Jul, [facility] [address] [address] June, Strain of left hamstring muscle, subsequ ent encounter S76.312D [facility] [address] [address] June, Bipolar disorder, in partial remission, most recent episode depressed F31.75 ; Hyperlipidemia E78.5 and Essential hypertension I10 [facility] [address] [address] May, Right wrist pain M25.531 [facility] [address] [address] May, Right wrist pain M25.531 [facility] [address] [facility] [id number] [address] [place] [address] May, Sebaceous cyst of right axil la L72.3 [facility] [address] [address] Apr, [facility] [address] [address] Apr, Peripheral arterial disease I73.9 [place] [address] [address] 14 Apr, 2018 Peripheral arterial disease I73.9 [facility] [address] [address] Apr, Bipolar disorder, in partial remission, most recent episode depressed F31.75 ; Hyperlipidemia E78.5 and Essential hypertension I10 [facility] [address] [address] Mar, [facility] [address] [address] Mar, [facility] [address] [address] Mar, [facility] [address] [address] Feb, Bipolar disorder, in partial remission, most recent episode depressed F31.75 ; Hyperlipidemia E78.5 and Essential hypertension I10 [place] [address] [address] Dec, Bipolar disorder, in partial remission, most recent episode depressed F31.75 ; Hyperlipidemia E78.5 and Essential hypertension I10 [place] [address] [address] Nov, [facility] [address] [address] Nov, [place] [address] [address] Nov, Bipolar disorder, in partial remission, most recent episode depressed F31.75 ; Hyperlipidemia E78.5 and Essential hypertension I10 [place] [address] [address] Nov, 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 [place] [address] [address] Oct, Essential hypertension I10 and Hyperlipi demia E78.5 [place] [address] [address] Sep, [place] [address] [address] Sep, [place] [address] [address] Sep, Skin lesion of foot L98.9 [facility] [address] [address] Aug, Bipolar disorder, in partial remission, most recent episode depressed F31.75 [place] [address] [address] Jul, Bipolar disorder, in partial remission, most recent episode depressed F31.75 [place] [address] [address] Jul, Peripheral arterial disease I73.9 [place] [address] [address] Apr, Bipolar disorder, in partial remission, most recent episode depressed F31.75 [place] [address] [address] Apr, Peripheral arterial disease I73.9 [place] [address] [address] Apr, Peripheral arterial disease I73.9 ; Esse ntial hypertension I10 ; Hyperlipidemia E78.5 ; Bipolar disorder, in partial remission, most recent episode depressed F31.75 ; Tobacco use Z72.0 and Intrinsic eczema L20.84 [place] [address] [address] Feb, Bipolar disorder, in partial remission, most recent episode depressed F31.75 [place] [address] [address] Dec, Bipolar disorder, in partial remission, most recent episode depressed F31.75 [place] [address] [address] Nov, [place] [address] [address] Oct, Hyperlipidemia E78.5 ; Essential hyperte nsion I10 ; Peripheral arterial disease I73.9 ; 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 and Encounter for immunization Z23 [place] [address] [address] Oct, 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 [address] Sep, Bipolar affective disorder, currently de pressed, mild F31.31 [place] [address] [address] Sep, Bipolar affective disorder, currently de pressed, mild F31.31 [place] [address] [address] Aug, Bipolar affective disorder, currently de pressed, mild F31.31 [place] [address] [address] Aug, Bipolar affective disorder, currently de pressed, mild F31.31 [place] [address] [address] Aug, Bipolar 1 disorder, mixed, partial remis ernestine F31.77 [place] [address] [address] Jul, Claudication I73.9 [place] [address] [address] Jul, Hyperlipidemia E78.5 [place] [address] [address] June, [place] [address] [address] June, [place] [address] [address] May, Bipolar 1 disorder, mixed, partial remis ernestine F31.77 [place] [address] [address] May, Bipolar 1 disorder, mixed, partial remis ernestine F31.77 [place] [address] [address] Apr, 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 [place] [address] [address] Mar, Bipolar 1 disorder, mixed, partial remis ernestine F31.77 and Alcohol dependence, uncomplicated F10.20 [place] [address] [address] Mar, Hyperlipidemia E78.5 [place] [address] [address] Mar, Essential hypertension I10 ; Tobacco use Z72.0 and Claudication I73.9 [place] [address] [address] Mar, [place] [address] [address] Feb, Bipolar 1 disorder, mixed, partial remis ernestine F31.77 and Alcohol dependence in remission F10.21 [place] [address] [address] Jan, Peripheral arterial disease I73.9 and Bi polar 1 disorder, mixed, partial remission F31.77 [place] [address] [address] Jan, [place] [address] [address] Nov, [place] [address] [address] Oct, Bipolar disorder, unspecified F31.9 and Alcohol dependence, uncomplicated F10.20 [place] [address] [address] Sep, Hyperlipidemia E78.5 ; Essential hyperte nsion I10 ; Peripheral arterial disease I73.9 and Tobacco use Z72.0 [place] [address] [address] Sep, Hyperlipidemia E78.5 [place] [address] [address] Aug, Bipolar 1 disorder, mixed, partial remis ernestine F31.77 and Alcohol dependence, uncomplicated F10.20 [place] [address] [address] June, Bipolar 1 disorder, mixed, partial remis ernestine F31.77 [place] [address] [address] May, Hypertension I10 ; Hyperlipidemia E78.5 ; PVD (peripheral vascular disease) I73.9 and Claudication I73.9 [place] [address] [address] Apr, [place] [address] [address] Apr, [place] [address] [address] Mar, [place] [address] [address] Mar, Hyperlipidemia E78.5 [place] [address] [address] Mar, Hyperlipidemia E78.5 and Peripheral summer rial disease I73.9 [place] [address] [address] Feb, Hyperlipidemia E78.5 ; Essential hyperte nsion I10 and Peripheral arterial disease I73.9 [place] [address] [address] Jan, [place] [address] [address] Jan, Bipolar disorder, unspecified F31.9 ; An xiety disorder, unspecified F41.9 ; Cannabis abuse, uncomplicated F12.10 and Alcohol dependence, uncomplicated F10.20 [place] [address] [address] Jan, Peripheral arterial disease I73.9 [place] [address] [address] Dec, Bipolar 1 disorder, mixed, partial remis ernestine F31.77 [place] [address] [address] 16 Nov, 2014 [place] [address] [address] 14 Nov, 2014 Unspecified essential hypertension 401.9 [place] [address] [address] Sep, Bipolar disorder, unspecified 296.80 [facility] [address] [address] Aug, Unspecified essential hypertension 401.9 [facility] [address] [address] Aug, Bipolar disorder, unspecified 296.80 ; O ther and unspecified alcohol dependence, unspecified drunkenness 303.90 and Nondependent cannabis abuse, unspecified 305.20 [facility] [address] [address] Aug, [facility] [address] [address] Jul, Physical exam, annual V70.0 [facility] [address] [address] Jul, [facility] [address] [address] June, Bipolar disorder, unspecified 296.80 ; A nxiety state, unspecified 300.00 ; Cannabis abuse 305.20 and Alcohol dependence 303.90 [facility] [address] [address] May, [facility] [address] [address] May, [facility] [address] [address] Apr, [facility] [address] [address] Apr, [facility] [address] [address] Apr, [facility] [address] [address] Apr, [facility] [address] [address] Apr, [facility] [address] [place] [address] 24 Apr, 2014 [facility] [place] [facility] [address] [facility] [id number] [place] [address] Apr, [facility] [place] [facility] [address] [id number] [place] [address] Apr, [facility] [place] [facility] [address] [id number] [place] [address] Apr, [facility] [place] [facility] [address] [id number] [place] [address] Apr, [facility] [place] [facility] [address] [facility] [id number] [place] [address] Apr, [facility] [place] [facility] [address] [id number] [place] [address] Mar, [facility] [place] [facility] [address] [id number] [place] [address] Mar, [facility] [place] [facility] [address] [id number] [place] [address] Mar, [facility] [place] [facility] [address] [id number] [place] [address] Mar, [facility] [place] [facility] [address] [id number] [place] [address] Feb, [facility] [place] [facility] [address] [id number] [place] [address] Feb, [facility] [place] [facility] [address] [id number] [place] [address] Feb, [facility] [place] [facility] [address] [id number] [place] [address] Feb, [facility] [place] [facility] [address] [id number] [place] [address] Feb, [facility] [place] [facility] [address] [id number] [place] [address] Feb, [facility] [place] [facility] [address] [id number] [place] [address] Feb, [facility] [place] [facility] [address] [id number] [place] [address] Feb, [facility] [place] [facility] [address] [id number] [place] [address] Feb, [facility] [place] [facility] [address] [id number] [place] [address] Jan, [facility] [place] [facility] [address] [id number] [place] [address] Jan, [facility] [place] [facility] [address] [id number] [place] [address] Nov, [facility] [place] [facility] [address] [id number] [place] [address] Nov, [facility] [place] [facility] [address] [id number] [place] [address] Nov, [facility] [place] [facility] [address] [id number] [place] [address] Nov, 2013 [facility] [place] [facility] [address] [id number] [place] [address] 16 Oct, 2013 [facility] [place] [facility] [address] [id number] [place] [address] 16 Sep, 2013 [facility] [place] [facility] [address] [id number] [place] [address] 16 Sep, 2013 [facility] [place] [facility] [address] [id number] [place] [address] 16 Sep, 2013 [facility] [place] [facility] [address] [id number] [place] [address] 09 Sep, 2013 [facility] [place] [facility] [address] [id number] [place] [address] 09 Sep, 2013 [facility] [place] [facility] [address] [id number] [place] [address] 05 Sep, 2013 [facility] [place] [facility] [address] [id number] [place] [address] 05 Sep, 2013 [facility] [place] [facility] [address] [id number] [place] [address] Sep, [facility] [place] [facility] [address] [facility] [id number] [facility] [place] [address] Sep, [facility] [place] [facility] [address] [facility] [id number] [place] [address] Sep, [facility] [place] [facility] [address] [id number] [facility] [place] [address] Sep, [facility] [place] [facility] [address] [facility] [id number] [place] [address] Sep, [facility] [place] [facility] [address] [facility] [id number] [facility] [place] [address] Sep, [facility] [place] [facility] [address] [facility] [id number] [facility] [place] [address] Sep, [facility] [place] [facility] [address] [id number] [facility] [place] [address] Sep, [facility] [place] [facility] [address] [id number] [facility] [place] [address] Sep, [facility] [place] [facility] [address] [id number] [facility] [place] [address] Sep, [facility] [place] [facility] [address] [id number] [facility] [place] [address] Sep, [facility] [place] [facility] [address] [id number] [place] [address] Sep, [facility] [place] [facility] [address] [id number] [place] [address] Sep, [facility] [place] [facility] [address] [facility] [id number] [facility] [place] [address] Sep, [facility] [place] [facility] [address] [id number] [place] [address] Aug, [facility] [place] [facility] [address] [facility] [id number] [place] [address] Aug, [facility] [place] [facility] [address] [id number] [facility] [place] [address] Aug, [facility] [place] [facility] [address] [id number] [facility] [place] [address] 30 Aug, 2013 [facility] [place] [facility] [address] [id number] [place] [address] Jul, [facility] [place] [facility] [address] [id number] [place] [address] Jul, [facility] [place] [facility] [address] [id number] [place] [address] 25 May, 2013 [facility] [place] [facility] [address] [id number] [place] [address] 25 May, 2013 [facility] [place] [facility] [address] [id number] [place] [address] 18 May, 2013 [facility] [place] [facility] [address] [id number] [place] [address] 18 May, 2013 [facility] [place] [facility] [address] [id number] [place] [address] 17 May, 2013 [facility] [place] [facility] [address] [id number] [place] [address] 17 May, 2013 [facility] [place] [facility] [address] [id number] [place] [address] 16 May, 2013 [facility] [place] [facility] [address] [id number] [place] [address] 16 May, 2013 [facility] [address] [id number] [place] [address] 15 May, 2013 [facility] [address] [id number] [place] [address] 15 May, 2013 [facility] [address] [id number] [place] [address] 15 May, 2013 [facility] [id number] [place] [address] 15 May, 2013 [facility] [address] [id number] [place] [address] 08 May, 2013 [facility] [address] [id number] [place] [address] 08 May, 2013 [facility] [address] [id number] [place] [address] Apr, [facility] [address] [id number] [place] [address] Apr, [facility] [address] [id number] [place] [address] Apr, [facility] [address] [id number] [place] [address] Apr, [facility] [address] [id number] [place] [address] Feb, [facility] [address] [id number] [place] [address] Feb, [facility] [address] [id number] [place] [address] Jan, [facility] [address] [id number] [place] [address] Jan, [facility] [address] [id number] [place] [address] Jan, [facility] [address] [id number] [place] [address] Jan, [facility] [address] [id number] [place] [address] Jan, [facility] [address] [id number] [place] [address] Jan, [facility] [address] [id number] [place] [address] Jan, [facility] [address] [id number] [place] [address] Jan, [facility] [address] [id number] [place] [address] Dec, [facility] [address] [id number] [place] [address] Dec, [facility] [address] [id number] [place] [address] Dec, [facility] [address] [id number] [place] [address] Dec, [facility] [address] [id number] [place] [address] Dec, [facility] [address] [id number] [place] [address] Dec, 2012 [facility] [facility] [address] [id number] [place] [address] Dec, 2012 [facility] [address] [id number] [place] [address] Dec, [facility] [address] [id number] [place] [address] Dec, [facility] [address] [id number] [place] [address] Nov, [facility] [address] [id number] [place] [address] 31 Nov, 2012 [facility] [address] [id number] [place] [address] 29 Nov, 2012 [facility] [address] [id number] [place] [address] 29 Nov, 2012 [facility] [address] [id number] [place] [address] Nov, 2012 [facility] [address] [id number] [place] [address] 22 Nov, 2012 [facility] [address] [id number] [place] [address] 18 Nov, 2012 [facility] [address] [id number] [place] [address] 18 Nov, 2012 [facility] [address] [id number] [place] [address] 16 Nov, 2012 [facility] [address] [id number] [place] [address] 16 Nov, 2012 [facility] [address] [id number] [place] [address] Nov, [facility] [address] [id number] [place] [address] Nov, [facility] [address] [facility] [id number] [place] [address] Nov, [facility] [address] [id number] [place] [address] 30 Oct, 2012 [facility] [address] [facility] [id number] [place] [address] 25 Oct, 2012 [facility] [address] [id number] [place] [address] 17 Oct, 2012 [facility] [address] [id number] [place] [address] 13 Oct, 2012 [facility] [address] [id number] [place] [address] 10 Oct, 2012 [facility] [address] [id number] [place] [address] 10 Oct, 2012 [facility] [address] [id number] [place] [address] Oct, [facility] [address] [id number] [place] [address] 16 Sep, 2012 [facility] [address] [id number] [place] [address] 15 Sep, 2012 [facility] [address] [id number] [place] [address] Sep, [facility] [address] [facility] [id number] [place] [address] Aug, [facility] [address] [id number] [place] [address] Aug, [facility] [address] [id number] [place] [address] Aug, [facility] [address] [id number] [place] [address] 16 Aug, 2012 [facility] [address] [facility] [id number] [place] [address] 12 Aug, 2012 [facility] [address] [id number] [place] [address] 08 Aug, 2012 [facility] [address] [id number] [place] [address] 05 Aug, 2012 [facility] [address] [id number] [place] [address] 27 Jul, 2012 [facility] [address] [facility] [id number] [place] [address] 21 Jul, 2012 [facility] [address] [id number] [place] [address] 14 Jul, 2012 [facility] [address] [id number] [place] [address] 13 Jul, 2012 [facility] [address] [id number] [place] [address] 13 Jul, 2012 [facility] [address] [id number] [place] [address] 13 Jul, 2012 [facility] [address] [id number] [place] [address] 12 Jul, 2012 [facility] [address] [id number] [place] [address] 11 Jul, 2012 [facility] [address] [id number] [place] [address] 10 Jul, 2012 [facility] [address] [id number] [place] [address] 08 Jul, 2012 [facility] [address] [id number] [place] [address] 08 Jul, 2012 [facility] [address] [id number] [place] [address] 07 Jul, 2012 [facility] [address] [id number] [place] [address] 06 Jul, 2012 [facility] [address] [id number] [place] [address] June, [facility] [address] [facility] [id number] [place] [address] June, [facility] [address] [id number] [place] [address] June, [facility] [address] [id number] [place] [address] June, [facility] [address] [id number] [place] [address] June, [facility] [address] [id number] [place] [address] June, [facility] [address] [id number] [place] [address] June, [facility] [address] [id number] [place] [address] June, [facility] [address] [id number] [place] [address] June, [facility] [address] [id number] [place] [address] May, [facility] [address] [id number] [place] [address] May, [facility] [address] [id number] [place] [address] May, [facility] [address] [id number] [place] [address] May, [facility] [address] [id number] [place] [address] 15 May, 2012 [facility] [address] [id number] [place] [address] 08 May, 2012 [facility] [address] [id number] [place] [address] May, [facility] [address] [id number] [place] [address] May, [facility] [address] [id number] [place] [address] May, [facility] [address] [id number] [place] [address] Apr, [facility] [address] [id number] [place] [address] Apr, [facility] [address] [id number] [place] [address] Apr, [facility] [address] [id number] [place] [address] Apr, [facility] [address] [facility] [id number] [place] [id number] Mar, [facility] [address] [id number] [place] [address] Mar, [facility] [address] [id number] [place] [address] Feb, [facility] [address] [id number] [place] [address] Feb, [facility] [address] [id number] [place] [address] Feb, [facility] [address] [id number] [place] [address] Feb, [facility] [address] [id number] [place] [address] Feb, [facility] [address] [id number] [place] [address] Feb, [facility] [address] [id number] [place] [address] Feb, [facility] [address] [id number] [place] [address] Dec, [facility] [address] [id number] [place] [address] Dec, [facility] [address] [id number] [place] [address] Dec, [facility] [address] [id number] [place] [address] Dec, [facility] [address] [id number] [place] [address] Dec, [facility] [address] [id number] [place] [address] Dec, [facility] [id number] [place] [address] Dec, [facility] [id number] [place] [address] Dec, [facility] [id number] [place] [address] Nov, [facility] [id number] [place] [address] Nov, [facility] [id number] [place] [address] Nov, [facility] [address] [id number] [place] [address] Nov, IMMUNIZATIONS No Known Immunizations SOCIAL HISTORY Never Assessed REASON FOR VISIT PLAN OF CARE VITAL SIGNS Height 69 in 2013-03-08 Weight 182.56 lbs 2013-03-08 Temperature 97.8 degrees Fahrenheit 2013-03-08 Heart Rate 80 bpm 2013-03-08 Respiratory Rate 18 2013-03-08 Blood pressure systolic 112 mmHg 2013-03-08 Blood pressure diastolic 70 mmHg 2013-03-08 MEDICATIONS Unknown Medications RESULTS No Results PROCEDURES No Known procedures INSTRUCTIONS MEDICATIONS ADMINISTERED No Known Medications MEDICAL (GENERAL) HISTORY Type Description Date Medical History hypertension Medical History hyperlipidemia Medical History bipolar disorder Medical History cardiovascular disease-heart attack and stroke Medical History Pure hypercholesterolemia Surgical History appendectomy Surgical History vasectomy-09/01/[address] Flores at [facility] Surgical History Stent placed in groin on right side 2014 Surgical History Blood clot removed from right knee 2014 Surgical History Balloon angioplasty [facility]- Dr. Rebolledo 03/10 Surgical History right wrist 10/08/18 Hospitalization History Hospitalization for surgery only
--- OUTSIDE RECORDS SUMMARY | 2019-05-27 20:04 | XMS REPORT ---
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 Name Role Phone IBRAHIMA Pepper Unavailable PROBLEMS Type Condition ICD9-CM Code UKO05-WQ Code Onset Dates Condition S tatus SNOMED Code Problem Peripheral arterial disease I73.9 Ac tive 423317603 Problem 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 Active 301 744510 Problem Schizoaffective disorder F25.9 Activ e 89745521 Problem Bipolar disorder F31.9 Active 137 46069 Problem History of FL (myocardial infarction) I25.2 Active 355829602 Problem Claudication I73.9 Active 4038589 00 Problem Tobacco use Z72.0 Active 07784374 0 Problem Other chronic pain G89.29 Active 8 4782158 Problem Hyperlipidemia E78.5 Active 66753 004 Problem Popliteal artery aneurysm, bilateral I72.4 Active 39347381 Problem Essential hypertension I10 Active 15947556 Problem Bipolar affective disorder, currently depressed, mild F31.31 Active 753274600 Problem Bipolar disorder, in partial remission, most rec ent episode depressed F31.75 Active 83976423 Problem Intrinsic eczema L20.84 Active 240 96550 Problem Bipolar disorder, current ep isode depressed, severe, without psychotic features F31.4 Active [id number] ALLERGIES No Information ENCOUNTERS Encounter Location Date Diagnosis [facility] [place] [address] [id number] [place] [address] Jul, [facility] [place] [id number] [place] [address] May, [facility] [place] [id number] [place] [address] May, [facility] [place] [address] [id number] [place] [address] Apr, Right wrist pain M25.531 [facility] [place] [id number] [place] [address] 16 Apr, 2019 Bipolar disorder, in partial remission, most recent episode depressed F31.75 [facility] [place] [address] [address] 06 Apr, 2019 Bipolar disorder, in partial remission, most recent episode depressed F31.75 ; Hyperlipidemia E78.5 and Essential hypertension I10 [facility] [place] [address] [address] 03 Apr, 2019 [facility] [place] [address] [address] 10 Mar, 2019 Essential hypertension I10 ; Peripheral arterial disease I73.9 ; 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 and Popliteal artery aneurysm, bilateral I72.4 [facility] [address] [facility] [id number] [address] [place] [address] Feb, Right wrist pain M25.531 [facility] [place] [address] [address] Feb, Right wrist pain M25.531 [place] [address] [address] Feb, Right wrist pain M25.531 [place] [address] [address] Feb, Right wrist pain M25.531 [facility] [place] [address] [address] Feb, Low back pain M54.5 [facility] [place] [address] [address] Jan, Low back pain M54.5 [facility] [place] [address] [address] Jan, Low back pain M54.5 [place] [address] [address] Jan, Low back pain M54.5 [place] [address] [address] Jan, [place] [address] [address] Jan, Low back pain M54.5 [place] [address] [address] Jan, Bipolar affective disorder, currently de pressed, mild F31.31 [place] [address] [address] 06 Jan, 2019 Bipolar disorder, in partial remission, most recent episode depressed F31.75 ; Hyperlipidemia E78.5 and Essential hypertension I10 [place] [address] [address] Jan, [place] [address] [address] Jan, Low back pain M54.5 [place] [address] [address] 15 Dec, 2018 Bipolar disorder, current episode depres sed, severe, without psychotic features F31.4 [place] [address] [address] 15 Dec, 2018 Chest pain, non-cardiac R07.89 ; Hyperli pidemia E78.5 ; Muscle spasm of back M62.830 ; Low back pain M54.5 ; Other chronic pain G89.29 ; Pain in thoracic spine M54.6 ; Essential hypertension I10 and Peripheral arterial disease I73.9 [place] [address] [address] Dec, [place] [address] [address] Dec, [place] [address] [address] Nov, Hyperlipidemia E78.5 and Essential hyper tension I10 [place] [id number] [place] [address] Nov, [facility] [place] [address] [address] Nov, Hyperlipidemia E78.5 ; Essential hyperte nsion I10 ; Peripheral arterial disease I73.9 ; Tobacco use Z72.0 ; Bipolar disorder, current episode depressed, severe, without psychotic features F31.4 ; Diarrhea, unspecified type R19.7 ; Encounter for screening for lung cancer Z12.2 and Encounter for immunization Z23 [facility] [place] [address] [address] Nov, [facility] [place] [address] [address] Nov, [facility] [place] [address] [address] Nov, Bipolar disorder, in partial remission, most recent episode depressed F31.75 ; Hyperlipidemia E78.5 and Essential hypertension I10 [facility] [place] [address] [address] Nov, [facility] [place] [address] [address] Nov, [facility] [place] [address] [address] Oct, [facility] [place] [address] [address] Oct, [facility] [place] [address] [address] Oct, [facility] [place] [address] [address] Sep, [facility] [place] [address] [address] Aug, Bipolar disorder, in partial remission, most recent episode depressed F31.75 ; Hyperlipidemia E78.5 and Essential hypertension I10 [facility] [place] [address] [address] Jul, [facility] [place] [address] [address] June, Strain of left hamstring muscle, subsequ ent encounter S76.312D [facility] [place] [address] [address] June, Bipolar disorder, in partial remission, most recent episode depressed F31.75 ; Hyperlipidemia E78.5 and Essential hypertension I10 [facility] [place] [address] [address] May, Right wrist pain M25.531 [facility] [place] [address] [address] May, Right wrist pain M25.531 [facility] [address] [facility] [id number] [address] [place] [address] May, Sebaceous cyst of right axil la L72.3 [facility] [place] [address] [address] Apr, [facility] [place] [address] [address] Apr, Peripheral arterial disease I73.9 [facility] [place] [address] [address] Apr, Peripheral arterial disease I73.9 [facility] [place] [address] [address] Apr, Bipolar disorder, in partial remission, most recent episode depressed F31.75 ; Hyperlipidemia E78.5 and Essential hypertension I10 [facility] [place] [address] [address] Mar, [facility] [place] [address] [address] Mar, [facility] [place] [address] [address] Mar, [facility] [place] [address] [address] Feb, Bipolar disorder, in partial remission, most recent episode depressed F31.75 ; Hyperlipidemia E78.5 and Essential hypertension I10 [place] [address] [address] Dec, Bipolar disorder, in partial remission, most recent episode depressed F31.75 ; Hyperlipidemia E78.5 and Essential hypertension I10 [place] [address] [address] Nov, [place] [address] [address] Nov, [place] [address] [address] Nov, Bipolar disorder, in partial remission, most recent episode depressed F31.75 ; Hyperlipidemia E78.5 and Essential hypertension I10 [place] [address] [address] Nov, 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 [place] [address] [address] Oct, Essential hypertension I10 and Hyperlipi demia E78.5 [place] [address] [address] Sep, [place] [address] [address] Sep, [place] [address] [address] Sep, Skin lesion of foot L98.9 [place] [address] [address] Aug, Bipolar disorder, in partial remission, most recent episode depressed F31.75 [place] [address] [address] Jul, Bipolar disorder, in partial remission, most recent episode depressed F31.75 [place] [address] [address] Jul, Peripheral arterial disease I73.9 [place] [address] [address] Apr, Bipolar disorder, in partial remission, most recent episode depressed F31.75 [place] [address] [address] Apr, Peripheral arterial disease I73.9 [place] [address] [address] Apr, Peripheral arterial disease I73.9 ; Esse ntial hypertension I10 ; Hyperlipidemia E78.5 ; Bipolar disorder, in partial remission, most recent episode depressed F31.75 ; Tobacco use Z72.0 and Intrinsic eczema L20.84 [place] [address] [address] Feb, Bipolar disorder, in partial remission, most recent episode depressed F31.75 [place] [address] [address] Dec, Bipolar disorder, in partial remission, most recent episode depressed F31.75 [place] [address] [address] Nov, [place] [address] [address] 14 Oct, 2016 Hyperlipidemia E78.5 ; Essential hyperte nsion I10 ; Peripheral arterial disease I73.9 ; 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 and Encounter for immunization Z23 [place] [address] [address] Oct, 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 [address] Sep, Bipolar affective disorder, currently de pressed, mild F31.31 [place] [address] [address] Sep, Bipolar affective disorder, currently de pressed, mild F31.31 [place] [address] [address] Aug, Bipolar affective disorder, currently de pressed, mild F31.31 [place] [address] [address] Aug, Bipolar affective disorder, currently de pressed, mild F31.31 [place] [address] [address] Aug, Bipolar 1 disorder, mixed, partial remis ernestine F31.77 [place] [address] [address] Jul, Claudication I73.9 [place] [address] [address] Jul, Hyperlipidemia E78.5 [place] [address] [address] June, [place] [address] [address] June, [place] [address] [address] May, Bipolar 1 disorder, mixed, partial remis ernestine F31.77 [place] [address] [address] May, Bipolar 1 disorder, mixed, partial remis ernestine F31.77 [place] [address] [address] Apr, 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 [place] [address] [address] Mar, Bipolar 1 disorder, mixed, partial remis ernestine F31.77 and Alcohol dependence, uncomplicated F10.20 [place] [address] [address] Mar, Hyperlipidemia E78.5 [place] [address] [address] Mar, Essential hypertension I10 ; Tobacco use Z72.0 and Claudication I73.9 [place] [address] [address] Mar, [place] [address] [id number] Feb, Bipolar 1 disorder, mixed, partial remis ernestine F31.77 and Alcohol dependence in remission F10.21 [place] [address] [address] Jan, Peripheral arterial disease I73.9 and Bi polar 1 disorder, mixed, partial remission F31.77 [place] [address] [address] Jan, [place] [address] [address] 05 Nov, 2015 [place] [address] [address] Oct, Bipolar disorder, unspecified F31.9 and Alcohol dependence, uncomplicated F10.20 [place] [address] [address] Sep, Hyperlipidemia E78.5 ; Essential hyperte nsion I10 ; Peripheral arterial disease I73.9 and Tobacco use Z72.0 [place] [address] [address] Sep, Hyperlipidemia E78.5 [place] [address] [address] Aug, Bipolar 1 disorder, mixed, partial remis ernestine F31.77 and Alcohol dependence, uncomplicated F10.20 [place] [address] [address] June, Bipolar 1 disorder, mixed, partial remis ernestine F31.77 [place] [address] [address] May, Hypertension I10 ; Hyperlipidemia E78.5 ; PVD (peripheral vascular disease) I73.9 and Claudication I73.9 [place] [address] [address] Apr, [place] [address] [address] Apr, [place] [address] [address] Mar, [place] [address] [address] Mar, Hyperlipidemia E78.5 [place] [address] [address] Mar, Hyperlipidemia E78.5 and Peripheral summer rial disease I73.9 [place] [address] [address] Feb, Hyperlipidemia E78.5 ; Essential hyperte nsion I10 and Peripheral arterial disease I73.9 [place] [address] [address] Jan, [place] [address] [address] Jan, Bipolar disorder, unspecified F31.9 ; An xiety disorder, unspecified F41.9 ; Cannabis abuse, uncomplicated F12.10 and Alcohol dependence, uncomplicated F10.20 [place] [address] [address] Jan, Peripheral arterial disease I73.9 [place] [address] [address] 13 Dec, 2014 Bipolar 1 disorder, mixed, partial remis ernestine F31.77 [place] [address] [address] 16 Nov, 2014 [place] [address] [address] 14 Nov, 2014 Unspecified essential hypertension 401.9 [place] [address] [address] Sep, Bipolar disorder, unspecified 296.80 [facility] [place] [address] [address] Aug, Unspecified essential hypertension 401.9 [facility] [place] [address] [address] Aug, Bipolar disorder, unspecified 296.80 ; O ther and unspecified alcohol dependence, unspecified drunkenness 303.90 and Nondependent cannabis abuse, unspecified 305.20 [facility] [place] [address] [address] Aug, [facility] [place] [address] [address] Jul, Physical exam, annual V70.0 [facility] [place] [address] [address] Jul, [facility] [place] [address] [address] June, Bipolar disorder, unspecified 296.80 ; A nxiety state, unspecified 300.00 ; Cannabis abuse 305.20 and Alcohol dependence 303.90 [facility] [place] [address] [address] May, [facility] [place] [address] [address] May, [facility] [place] [address] [address] Apr, [facility] [place] [address] [address] Apr, [facility] [place] [address] [address] Apr, [facility] [place] [address] [address] Apr, [facility] [place] [address] [address] Apr, [facility] [place] [id number] [place] [address] 24 Apr, 2014 [facility] [place] [facility] [address] [facility] [id number] [place] [address] Apr, [facility] [place] [facility] [address] [facility] [id number] [place] [address] Apr, [facility] [place] [facility] [address] [id number] [place] [address] Apr, [facility] [place] [facility] [address] [id number] [place] [address] Apr, [facility] [place] [facility] [address] [facility] [id number] [place] [address] Apr, [facility] [place] [facility] [address] [id number] [place] [address] Mar, [facility] [place] [facility] [address] [id number] [place] [address] Mar, [facility] [place] [facility] [address] [id number] [place] [address] Mar, [facility] [place] [facility] [address] [id number] [place] [address] Mar, [facility] [place] [facility] [address] [id number] [place] [address] Feb, [facility] [place] [facility] [address] [id number] [place] [address] Feb, [facility] [place] [facility] [address] [id number] [place] [address] Feb, [facility] [place] [facility] [address] [facility] [id number] [place] [address] Feb, [facility] [place] [facility] [address] [id number] [place] [address] Feb, [facility] [place] [facility] [address] [id number] [place] [address] Feb, [facility] [place] [facility] [address] [id number] [place] [address] Feb, [facility] [place] [facility] [address] [id number] [place] [address] Feb, [facility] [place] [facility] [address] [id number] [place] [address] Feb, [facility] [place] [facility] [address] [id number] [place] [address] Jan, [facility] [place] [facility] [address] [id number] [place] [address] Jan, [facility] [place] [facility] [address] [id number] [place] [address] Nov, [facility] [place] [facility] [address] [id number] [place] [address] Nov, [facility] [place] [facility] [address] [id number] [place] [address] Nov, [facility] [place] [facility] [address] [id number] [place] [address] Nov, [facility] [place] [facility] [address] [id number] [place] [address] 16 Oct, 2013 [facility] [place] [facility] [address] [id number] [place] [address] 16 Sep, 2013 [facility] [place] [facility] [address] [id number] [place] [address] 16 Sep, 2013 [facility] [place] [facility] [address] [id number] [place] [address] 16 Sep, 2013 [facility] [place] [facility] [address] [id number] [place] [address] 09 Sep, 2013 [facility] [place] [facility] [address] [id number] [place] [address] 09 Sep, 2013 [facility] [place] [facility] [address] [id number] [place] [address] 05 Sep, 2013 [facility] [place] [facility] [address] [id number] [place] [address] 05 Sep, 2013 [facility] [place] [facility] [address] [id number] [place] [address] Sep, [facility] [place] [facility] [address] [id number] [place] [address] Sep, [facility] [place] [facility] [address] [facility] [id number] [facility] [address] Sep, [facility] [place] [facility] [address] [id number] [facility] [address] Sep, [facility] [place] [facility] [address] [facility] [id number] [facility] [address] Sep, [facility] [place] [facility] [address] [facility] [id number] [place] [address] Sep, [facility] [place] [facility] [address] [id number] [facility] [address] Sep, [facility] [place] [facility] [address] [id number] [place] [address] Sep, [facility] [place] [facility] [address] [id number] [place] [address] Sep, [facility] [place] [facility] [address] [facility] [id number] [facility] [address] Sep, [facility] [place] [facility] [address] [id number] [place] [address] Sep, [facility] [place] [facility] [address] [id number] [place] [address] Sep, [facility] [place] [facility] [address] [id number] [facility] [address] Sep, [facility] [place] [facility] [address] [facility] [id number] [facility] [place] [address] Sep, [facility] [place] [facility] [address] [id number] [facility] [place] [address] Aug, [facility] [place] [facility] [address] [facility] [id number] [facility] [place] [address] Aug, [facility] [place] [address] [id number] [place] [address] Aug, [facility] [address] [id number] [place] [address] 30 Aug, 2013 [facility] [address] [id number] [place] [address] Jul, [facility] [address] [id number] [place] [address] Jul, [facility] [address] [id number] [place] [address] May, [facility] [address] [id number] [place] [address] 25 May, 2013 [facility] [address] [id number] [place] [address] 18 May, 2013 [facility] [address] [id number] [place] [address] 18 May, 2013 [facility] [address] [id number] [place] [address] 17 May, 2013 [facility] [address] [id number] [place] [address] 17 May, 2013 [facility] [address] [id number] [place] [address] 16 May, 2013 [facility] [address] [id number] [place] [address] 16 May, 2013 [facility] [address] [id number] [place] [address] 15 May, 2013 [facility] [address] [id number] [place] [address] 15 May, 2013 [facility] [address] [id number] [place] [address] 15 May, 2013 [facility] [address] [id number] [place] [address] 15 May, 2013 [facility] [address] [id number] [place] [address] 08 May, 2013 [facility] [address] [id number] [place] [address] 08 May, 2013 [facility] [address] [id number] [place] [address] Apr, [facility] [address] [id number] [place] [address] Apr, [facility] [address] [id number] [place] [address] Apr, [facility] [address] [facility] [id number] [place] [address] Apr, [facility] [address] [id number] [place] [address] Feb, [facility] [address] [facility] [id number] [place] [address] Feb, [facility] [address] [id number] [place] [address] Jan, [facility] [address] [id number] [place] [address] Jan, [facility] [address] [id number] [place] [address] Jan, [facility] [address] [id number] [place] [address] Jan, [facility] [address] [id number] [place] [address] Jan, [facility] [address] [id number] [place] [address] Jan, [facility] [address] [id number] [place] [address] Jan, [facility] [address] [id number] [place] [address] Jan, [facility] [address] [id number] [place] [address] Dec, [facility] [address] [id number] [place] [address] Dec, [facility] [address] [id number] [place] [address] Dec, [facility] [address] [id number] [place] [address] Dec, [facility] [address] [id number] [place] [address] Dec, [facility] [address] [id number] [place] [address] Dec, [facility] [address] [id number] [place] [address] Dec, [facility] [address] [id number] [place] [address] Dec, [facility] [address] [id number] [place] [address] Dec, [facility] [address] [id number] [place] [address] Nov, [facility] [address] [id number] [place] [address] 31 Nov, 2012 [facility] [address] [id number] [place] [address] Nov, [facility] [address] [id number] [place] [address] 29 Nov, 2012 [facility] [address] [id number] [place] [address] Nov, [facility] [address] [id number] [place] [address] Nov, 2012 [facility] [address] [id number] [place] [address] 18 Nov, 2012 [facility] [address] [id number] [place] [address] 18 Nov, 2012 [facility] [address] [id number] [place] [address] 16 Nov, 2012 [facility] [address] [id number] [place] [address] 16 Nov, 2012 [facility] [address] [id number] [place] [address] Nov, [facility] [address] [facility] [id number] [place] [address] Nov, [facility] [address] [id number] [place] [address] Nov, [facility] [address] [id number] [place] [address] 30 Oct, 2012 [facility] [address] [facility] [id number] [place] [address] 25 Oct, 2012 [facility] [address] [id number] [place] [address] 17 Oct, 2012 [facility] [address] [id number] [place] [address] 13 Oct, 2012 [facility] [address] [id number] [place] [address] 10 Oct, 2012 [facility] [address] [id number] [place] [address] 10 Oct, 2012 [facility] [address] [id number] [place] [address] Oct, [facility] [address] [id number] [place] [address] 16 Sep, 2012 [facility] [address] [id number] [place] [address] Sep, [facility] [address] [id number] [place] [address] Sep, [facility] [address] [facility] [id number] [place] [address] Aug, [facility] [address] [id number] [place] [address] Aug, [facility] [address] [id number] [place] [address] Aug, [facility] [address] [id number] [place] [address] Aug, [facility] [address] [facility] [id number] [place] [address] 12 Aug, 2012 [facility] [address] [facility] [id number] [facility] [place] [address] 08 Aug, 2012 [facility] [address] [id number] [place] [address] 05 Aug, 2012 [facility] [address] [id number] [facility] [place] [address] 27 Jul, 2012 [facility] [address] [facility] [id number] [facility] [place] [address] 21 Jul, 2012 [facility] [address] [id number] [place] [address] 14 Jul, 2012 [facility] [address] [id number] [place] [address] 13 Jul, 2012 [facility] [address] [id number] [place] [address] Jul, [facility] [address] [id number] [place] [address] 13 Jul, 2012 [facility] [address] [id number] [place] [address] 12 Jul, 2012 [facility] [address] [id number] [place] [address] 11 Jul, 2012 [facility] [address] [id number] [place] [address] 10 Jul, 2012 [facility] [address] [id number] [place] [address] 08 Jul, 2012 [facility] [address] [id number] [place] [address] 08 Jul, 2012 [facility] [address] [id number] [place] [address] 07 Jul, 2012 [facility] [address] [id number] [place] [address] 06 Jul, 2012 [facility] [address] [id number] [facility] [place] [address] June, [facility] [address] [id number] [facility] [place] [address] June, [facility] [address] [id number] [place] [address] June, [facility] [address] [id number] [place] [address] June, [facility] [address] [id number] [place] [address] June, [facility] [address] [id number] [place] [address] June, [facility] [address] [id number] [place] [address] June, [facility] [address] [id number] [place] [address] June, [facility] [address] [id number] [place] [address] June, [facility] [address] [id number] [place] [address] May, [facility] [address] [id number] [place] [address] May, [facility] [address] [id number] [place] [address] May, [facility] [address] [id number] [place] [address] May, [facility] [address] [id number] [place] [address] 15 May, 2012 [facility] [address] [id number] [place] [address] May, [facility] [address] [id number] [place] [address] May, [facility] [address] [id number] [place] [address] May, [facility] [address] [id number] [place] [address] May, [facility] [address] [id number] [place] [address] Apr, [facility] [address] [id number] [place] [address] Apr, [facility] [address] [id number] [place] [address] Apr, [facility] [address] [id number] [place] [address] Apr, [facility] [address] [facility] [id number] [place] [id number] Mar, [facility] [address] [id number] [place] [address] Mar, [facility] [address] [id number] [place] [address] Feb, [facility] [address] [id number] [place] [address] Feb, [facility] [address] [id number] [place] [address] Feb, [facility] [address] [id number] [place] [address] Feb, [facility] [address] [id number] [place] [address] Feb, [facility] [address] [id number] [place] [address] Feb, [facility] [address] [id number] [place] [address] Feb, [facility] [address] [id number] [place] [address] Dec, [facility] [address] [id number] [place] [address] Dec, [facility] [address] [id number] [place] [address] Dec, [facility] [place] [id number] [place] [address] Dec, [facility] [place] [id number] [place] [address] Dec, [facility] [place] [address] [id number] [place] [address] Dec, [facility] [place] [id number] [place] [address] Dec, [facility] [place] [address] [id number] [place] [address] Dec, [facility] [place] [id number] [place] [address] Nov, [facility] [place] [address] [id number] [place] [address] Nov, [facility] [place] [id number] [place] [address] Nov, [facility] [place] [address] [id number] [place] [address] Nov, IMMUNIZATIONS No Known Immunizations SOCIAL HISTORY Never Assessed REASON FOR VISIT PLAN OF CARE VITAL SIGNS Height 69 in 2012-03-02 Weight 207 lbs 2012-03-02 Heart Rate 80 bpm 2012-03-02 Respiratory Rate 22 2012-03-02 Blood pressure systolic 116 mmHg 2012-03-02 Blood pressure diastolic 90 mmHg 2012-03-02 MEDICATIONS Unknown Medications RESULTS No Results PROCEDURES No Known procedures INSTRUCTIONS MEDICATIONS ADMINISTERED No Known Medications MEDICAL (GENERAL) HISTORY Type Description Date Medical History hypertension Medical History hyperlipidemia Medical History bipolar disorder Medical History cardiovascular disease-heart attack and stroke Medical History Pure hypercholesterolemia Surgical History appendectomy Surgical History vasectomy-09/01/[address] Flores at [facility] Surgical History Stent placed in groin on right side 2014 Surgical History Blood clot removed from right knee 2014 Surgical History Balloon angioplasty [facility]- Dr. Rebolledo 03/10 Surgical History right wrist 10/08/18 Hospitalization History Hospitalization for surgery only
--- OUTSIDE RECORDS SUMMARY | 2019-05-27 20:05 | XMS REPORT ---
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 Name Role Phone YOANDYCHRISJERRY Unavailable PROBLEMS Type Condition ICD9-CM Code QGE05-OO Code Onset Dates Condition S tatus SNOMED Code Problem 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 Active 301 432043 Problem Bipolar disorder F31.9 Active 137 94047 Problem Peripheral arterial disease I73.9 Ac tive 291719837 Problem Hyperlipidemia E78.5 Active 82810 004 Problem History of [place] (myocardial infarction) I25.2 Active 749206164 Problem Claudication I73.9 Active 3502077 00 Problem Bipolar disorder, current ep isode depressed, severe, without psychotic features F31.4 Active 986308040 Problem Essential hypertension I10 Active 70212578 Problem Other chronic pain G89.29 Active 8 1556778 Problem Schizoaffective disorder F25.9 Activ e 78826726 Problem Tobacco use Z72.0 Active 91721408 0 Problem Bipolar affective disorder, currently depressed, mild F31.31 Active 684213692 Problem Bipolar disorder, in partial remission, most rec ent episode depressed F31.75 Active 06324772 Problem Intrinsic eczema L20.84 Active 240 90048 ALLERGIES No Information ENCOUNTERS Encounter Location Date Diagnosis [facility] [address] [id number] [place] [address] Apr, [facility] [id number] [place] [address] Mar, [facility] [id number] [place] [address] Feb, [facility] [address] [id number] [place] [address] Feb, [facility] [id number] [place] [address] Feb, Right wrist pain M25.531 [facility] [address] [address] Feb, Right wrist pain M25.531 [facility] [address] [address] Feb, Right wrist pain M25.531 [facility] [address] [address] Feb, Low back pain M54.5 [facility] [address] [address] Jan, Low back pain M54.5 [place] [address] [address] Jan, Low back pain M54.5 [place] [address] [address] Jan, Low back pain M54.5 [place] [address] [address] Jan, [place] [address] [address] Jan, Low back pain M54.5 [place] [address] [address] Jan, Bipolar affective disorder, currently de pressed, mild F31.31 [place] [address] [address] Jan, Bipolar disorder, in partial remission, most recent episode depressed F31.75 ; Hyperlipidemia E78.5 and Essential hypertension I10 [place] [address] [address] Jan, [place] [address] [address] Jan, Low back pain M54.5 [place] [address] [address] Dec, Bipolar disorder, current episode depres sed, severe, without psychotic features F31.4 [place] [address] [address] Dec, Chest pain, non-cardiac R07.89 ; Hyperli pidemia E78.5 ; Muscle spasm of back M62.830 ; Low back pain M54.5 ; Other chronic pain G89.29 ; Pain in thoracic spine M54.6 ; Essential hypertension I10 and Peripheral arterial disease I73.9 [place] [address] [address] Dec, [place] [address] [address] Dec, [place] [address] [address] Nov, Hyperlipidemia E78.5 and Essential hyper tension I10 [place] [address] [address] Nov, [place] [address] [address] Nov, Hyperlipidemia E78.5 ; Essential hyperte nsion I10 ; Peripheral arterial disease I73.9 ; Tobacco use Z72.0 ; Bipolar disorder, current episode depressed, severe, without psychotic features F31.4 ; Diarrhea, unspecified type R19.7 ; Encounter for screening for lung cancer Z12.2 and Encounter for immunization Z23 [place] [address] [address] Nov, [place] [address] [address] Nov, [address] [address] Nov, Bipolar disorder, in partial remission, most recent episode depressed F31.75 ; Hyperlipidemia E78.5 and Essential hypertension I10 [place] [address] [address] Nov, [facility] [id number] [place] [address] Nov, [facility] [address] [address] Oct, [facility] [id number] [place] [address] Oct, [facility] [address] [address] Oct, [facility] [address] [address] Sep, [facility] [address] [address] Aug, Bipolar disorder, in partial remission, most recent episode depressed F31.75 ; Hyperlipidemia E78.5 and Essential hypertension I10 [facility] [address] [address] Jul, [facility] [address] [address] June, Strain of left hamstring muscle, subsequ ent encounter S76.312D [facility] [address] [address] June, Bipolar disorder, in partial remission, most recent episode depressed F31.75 ; Hyperlipidemia E78.5 and Essential hypertension I10 [facility] [address] [address] May, Right wrist pain M25.531 [facility] [address] [id number] [place] [address] May, Right wrist pain M25.[address] [facility] [address] [facility] [id number] [place] [address] May, Sebaceous cyst of right axil la L72.3 [facility] [address] [id number] [place] [address] Apr, [facility] [address] [address] 21 Apr, 2018 Peripheral arterial disease I73.9 [facility] [address] [address] 14 Apr, 2018 Peripheral arterial disease I73.9 [facility] [address] [address] 13 Apr, 2018 Bipolar disorder, in partial remission, most recent episode depressed F31.75 ; Hyperlipidemia E78.5 and Essential hypertension I10 [facility] [address] [address] Mar, [facility] [address] [address] Mar, [facility] [address] [address] Mar, [facility] [address] [address] Feb, Bipolar disorder, in partial remission, most recent episode depressed F31.75 ; Hyperlipidemia E78.5 and Essential hypertension I10 [facility] [address] [address] Dec, Bipolar disorder, in partial remission, most recent episode depressed F31.75 ; Hyperlipidemia E78.5 and Essential hypertension I10 [facility] [address] [address] Nov, [facility] [address] [address] Nov, [facility] [address] [address] Nov, Bipolar disorder, in partial remission, most recent episode depressed F31.75 ; Hyperlipidemia E78.5 and Essential hypertension I10 [facility] [address] [address] Nov, 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 [facility] [address] [address] Oct, Essential hypertension I10 and Hyperlipi demia E78.5 [place] [address] [address] Sep, [facility] [address] [address] Sep, [place] [address] [address] Sep, Skin lesion of foot L98.9 [place] [address] [address] Aug, Bipolar disorder, in partial remission, most recent episode depressed F31.75 [place] [address] [address] Jul, Bipolar disorder, in partial remission, most recent episode depressed F31.75 [place] [address] [address] Jul, Peripheral arterial disease I73.9 [place] [address] [address] Apr, Bipolar disorder, in partial remission, most recent episode depressed F31.75 [place] [address] [address] Apr, Peripheral arterial disease I73.9 [place] [address] [address] Apr, Peripheral arterial disease I73.9 ; Esse ntial hypertension I10 ; Hyperlipidemia E78.5 ; Bipolar disorder, in partial remission, most recent episode depressed F31.75 ; Tobacco use Z72.0 and Intrinsic eczema L20.84 [place] [address] [address] Feb, Bipolar disorder, in partial remission, most recent episode depressed F31.75 [facility] [address] [address] Dec, Bipolar disorder, in partial remission, most recent episode depressed F31.75 [place] [address] [address] Nov, [place] [address] [address] Oct, Hyperlipidemia E78.5 ; Essential hyperte nsion I10 ; Peripheral arterial disease I73.9 ; 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 and Encounter for immunization Z23 [place] [address] [address] Oct, 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 [place] [address] [address] Sep, Bipolar affective disorder, currently de pressed, mild F31.31 [place] [address] [address] Sep, Bipolar affective disorder, currently de pressed, mild F31.31 [place] [address] [address] Aug, Bipolar affective disorder, currently de pressed, mild F31.31 [place] [address] [address] Aug, Bipolar affective disorder, currently de pressed, mild F31.31 [place] [address] [address] Aug, Bipolar 1 disorder, mixed, partial remis ernestine F31.77 [place] [address] [address] Jul, Claudication I73.[address] [address] Jul, Hyperlipidemia E78.5 [place] [address] [address] June, [place] [address] [address] June, [place] [address] [address] May, Bipolar 1 disorder, mixed, partial remis ernestine F31.77 [place] [address] [address] May, Bipolar 1 disorder, mixed, partial remis ernestine F31.77 [place] [address] [address] Apr, 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 [place] [address] [address] 28 Mar, 2016 Bipolar 1 disorder, mixed, partial remis ernestine F31.77 and Alcohol dependence, uncomplicated F10.20 [place] [address] [address] 27 Mar, 2016 Hyperlipidemia E78.5 [place] [address] [address] Mar, Essential hypertension I10 ; Tobacco use Z72.0 and Claudication I73.9 [place] [address] [address] Mar, [place] [address] [address] Feb, Bipolar 1 disorder, mixed, partial remis ernestine F31.77 and Alcohol dependence in remission F10.21 [place] [address] [address] Jan, Peripheral arterial disease I73.9 and Bi polar 1 disorder, mixed, partial remission F31.77 [place] [address] [address] 13 Jan, 2016 [place] [address] [address] 05 Nov, 2015 [place] [address] [address] 13 Oct, 2015 Bipolar disorder, unspecified F31.9 and Alcohol dependence, uncomplicated F10.20 [place] [address] [address] Sep, Hyperlipidemia E78.5 ; Essential hyperte nsion I10 ; Peripheral arterial disease I73.9 and Tobacco use Z72.0 [place] [address] [address] Sep, Hyperlipidemia E78.5 [place] [address] [address] Aug, Bipolar 1 disorder, mixed, partial remis ernestine F31.77 and Alcohol dependence, uncomplicated F10.20 [place] [address] [address] June, Bipolar 1 disorder, mixed, partial remis ernestine F31.77 [place] [address] [address] May, Hypertension I10 ; Hyperlipidemia E78.5 ; PVD (peripheral vascular disease) I73.9 and Claudication I73.9 [place] [address] [address] Apr, [place] [address] [address] Apr, [place] [address] [address] Mar, [place] [address] [address] Mar, Hyperlipidemia E78.5 [place] [address] [address] Mar, Hyperlipidemia E78.5 and Peripheral summer rial disease I73.9 [place] [address] [address] Feb, Hyperlipidemia E78.5 ; Essential hyperte nsion I10 and Peripheral arterial disease I73.9 [place] [address] [address] Jan, [place] [address] [address] 14 Jan, 2015 Bipolar disorder, unspecified F31.9 ; An xiety disorder, unspecified F41.9 ; Cannabis abuse, uncomplicated F12.10 and Alcohol dependence, uncomplicated F10.20 [place] [address] [address] 11 Jan, 2015 Peripheral arterial disease I73.9 [place] [address] [address] Dec, Bipolar 1 disorder, mixed, partial remis ernestine F31.77 [place] [address] [address] Nov, [place] [address] [address] Nov, Unspecified essential hypertension 401.9 [place] [address] [address] Sep, Bipolar disorder, unspecified 296.80 [place] [address] [address] Aug, Unspecified essential hypertension 401.9 [place] [address] [address] Aug, Bipolar disorder, unspecified 296.80 ; O ther and unspecified alcohol dependence, unspecified drunkenness 303.90 and Nondependent cannabis abuse, unspecified 305.20 [place] [address] [address] Aug, [address] [address] Jul, Physical exam, annual V70.[address] [address] Jul, [place] [address] [address] June, Bipolar disorder, unspecified 296.80 ; A nxiety state, unspecified 300.00 ; Cannabis abuse 305.20 and Alcohol dependence 303.90 [facility] [id number] [place] [address] 14 May, 2014 [facility] [address] [id number] [place] [address] May, [facility] [id number] [place] [address] Apr, [facility] [id number] [place] [address] Apr, [facility] [id number] [place] [address] Apr, [facility] [id number] [place] [address] Apr, [facility] [id number] [place] [address] Apr, [facility] [id number] [place] [address] Apr, [facility] [id number] [place] [address] Apr, [facility] [id number] [place] [address] Apr, [facility] [id number] [place] [address] Apr, [facility] [id number] [place] [address] Apr, [facility] [id number] [place] [address] Apr, [facility] [id number] [place] [address] Mar, [facility] [id number] [place] [address] Mar, [facility] [id number] [place] [address] Mar, [facility] [place] [facility] [address] [id number] [place] [address] Mar, [facility] [place] [facility] [address] [id number] [place] [address] Feb, [facility] [place] [facility] [address] [id number] [place] [address] Feb, [facility] [place] [facility] [id number] [place] [address] Feb, [facility] [place] [facility] [address] [id number] [place] [address] Feb, [facility] [place] [facility] [address] [id number] [place] [address] Feb, [facility] [place] [facility] [id number] [place] [address] Feb, [facility] [place] [facility] [id number] [place] [address] Feb, [facility] [place] [facility] [id number] [place] [address] Feb, [facility] [place] [facility] [address] [id number] [place] [address] Feb, [facility] [place] [facility] [id number] [place] [address] Jan, [facility] [place] [facility] [address] [id number] [place] [address] Jan, [facility] [place] [facility] [address] [id number] [place] [address] Nov, [facility] [place] [facility] [address] [id number] [place] [address] Nov, [facility] [place] [facility] [id number] [place] [address] Nov, [facility] [place] [facility] [address] [id number] [place] [address] Nov, [facility] [place] [facility] [address] [id number] [place] [address] 16 Sep, 2013 [facility] [place] [facility] [address] [id number] [facility] [place] [address] 16 Oct, 2013 [facility] [place] [facility] [address] [id number] [place] [address] 16 Oct, 2013 [facility] [place] [facility] [address] [facility] [id number] [facility] [place] [address] 16 Oct, 2013 [facility] [place] [facility] [address] [id number] [place] [address] 09 Oct, 2013 [facility] [place] [facility] [address] [id number] [place] [address] 09 Oct, 2013 [facility] [place] [facility] [address] [id number] [facility] [place] [address] 05 Oct, 2013 [facility] [place] [facility] [address] [id number] [facility] [place] [address] 05 Oct, 2013 [facility] [place] [facility] [address] [id number] [facility] [place] [address] Sep, 2013 [facility] [place] [facility] [address] [facility] [id number] [facility] [place] [address] Sep, [facility] [place] [facility] [address] [id number] [facility] [place] [address] Sep, [facility] [place] [facility] [address] [id number] [place] [address] Sep, 2013 [facility] [place] [facility] [address] [id number] [place] [address] Sep, 2013 [facility] [place] [facility] [address] [facility] [id number] [facility] [place] [address] Sep, 2013 [facility] [place] [facility] [address] [id number] [place] [address] Sep, [facility] [place] [facility] [address] [facility] [id number] [place] [address] Sep, [facility] [place] [facility] [address] [id number] [place] [address] Sep, 2013 [facility] [place] [facility] [address] [id number] [facility] [place] [address] Sep, [facility] [place] [facility] [address] [id number] [facility] [place] [address] Sep, [facility] [place] [facility] [address] [facility] [id number] [place] [address] Sep, [facility] [place] [facility] [address] [id number] [place] [address] Sep, [facility] [place] [facility] [address] [id number] [place] [address] Sep, [facility] [place] [facility] [address] [facility] [id number] [place] [address] Aug, [facility] [place] [facility] [address] [id number] [place] [address] Aug, [facility] [place] [facility] [address] [id number] [place] [address] Aug, [facility] [place] [facility] [address] [id number] [place] [address] Aug, [facility] [place] [facility] [address] [id number] [place] [address] Jul, [facility] [place] [facility] [address] [id number] [place] [address] Jul, [facility] [place] [facility] [address] [id number] [place] [address] May, [facility] [place] [facility] [address] [id number] [place] [address] May, [facility] [place] [facility] [address] [id number] [place] [address] May, [facility] [place] [facility] [address] [id number] [place] [address] May, [facility] [place] [facility] [address] [id number] [place] [address] May, [facility] [place] [facility] [address] [id number] [place] [address] May, [facility] [place] [facility] [address] [id number] [place] [address] 16 May, 2013 [facility] [place] [facility] [address] [id number] [place] [address] 16 May, 2013 [facility] [place] [facility] [address] [id number] [place] [address] 15 May, 2013 [facility] [place] [facility] [address] [id number] [place] [address] 15 May, 2013 [facility] [place] [facility] [address] [id number] [place] [address] 15 May, 2013 [facility] [place] [facility] [address] [id number] [place] [address] 15 May, 2013 [facility] [place] [facility] [address] [id number] [place] [address] 08 May, 2013 [facility] [place] [facility] [address] [id number] [place] [address] 08 May, 2013 [facility] [place] [facility] [address] [id number] [place] [address] 11 Apr, 2013 [facility] [place] [facility] [address] [id number] [place] [address] 11 Apr, 2013 [facility] [place] [facility] [address] [id number] [place] [address] Apr, [facility] [place] [facility] [address] [id number] [place] [address] Apr, [facility] [place] [facility] [address] [id number] [place] [address] 16 Feb, 2013 [facility] [place] [facility] [address] [id number] [place] [address] 16 Feb, 2013 [facility] [address] [id number] [place] [address] Jan, [facility] [address] [id number] [place] [address] Jan, [facility] [address] [id number] [place] [address] 17 Jan, 2012 [facility] [address] [id number] [place] [address] 17 Jan, 2012 [facility] [address] [id number] [place] [address] Jan, 2012 [facility] [address] [id number] [place] [address] 16 Jan, 2012 [facility] [address] [id number] [place] [address] Jan, 2012 [facility] [address] [id number] [place] [address] Jan, 2012 [facility] [address] [id number] [place] [address] Dec, [facility] [address] [id number] [place] [address] Dec, 2012 [facility] [id number] [place] [address] Dec, [facility] [address] [id number] [place] [address] Dec, [facility] [address] [id number] [place] [address] Dec, [facility] [address] [id number] [place] [address] Dec, [facility] [address] [id number] [place] [address] 07 Dec, 2012 [facility] [address] [id number] [place] [address] 07 Dec, 2012 [facility] [address] [id number] [place] [address] Dec, [facility] [address] [id number] [place] [address] Nov, [facility] [address] [id number] [place] [address] Nov, [facility] [address] [id number] [place] [address] 29 Nov, 2012 [facility] [address] [facility] [id number] [place] [address] 29 Nov, 2012 [facility] [address] [id number] [place] [address] Nov, 2012 [facility] [address] [id number] [place] [address] Nov, 2012 [facility] [address] [id number] [place] [address] Nov, 2012 [facility] [address] [id number] [place] [address] Nov, [facility] [address] [id number] [place] [address] Nov, 2012 [facility] [address] [id number] [place] [address] Nov, [facility] [address] [id number] [place] [address] Nov, 2012 [facility] [address] [id number] [place] [address] Nov, [facility] [address] [id number] [place] [address] Nov, [facility] [address] [id number] [place] [address] 30 Oct, 2012 [facility] [address] [id number] [place] [address] 25 Sep, 2012 [facility] [address] [id number] [place] [address] 17 Sep, 2012 [facility] [address] [id number] [place] [address] 13 Sep, 2012 [facility] [address] [id number] [place] [address] 10 Sep, 2012 [facility] [address] [id number] [place] [address] 10 Sep, 2012 [facility] [address] [id number] [place] [address] 10 Oct, 2012 [facility] [address] [facility] [id number] [place] [address] Sep, [facility] [address] [id number] [place] [address] Sep, [facility] [address] [id number] [place] [address] Sep, [facility] [address] [facility] [id number] [place] [address] Aug, [facility] [address] [id number] [place] [address] Aug, [facility] [address] [id number] [place] [address] Aug, [facility] [address] [id number] [place] [address] Aug, [facility] [address] [id number] [place] [address] Aug, [facility] [address] [id number] [place] [address] Aug, [facility] [address] [id number] [place] [address] Aug, [facility] [address] [id number] [place] [address] Jul, [facility] [address] [id number] [place] [address] Jul, [facility] [address] [facility] [id number] [place] [address] 14 Jul, 2012 [facility] [address] [id number] [place] [address] Jul, [facility] [address] [id number] [place] [address] Jul, [facility] [address] [id number] [place] [address] 13 Jul, 2012 [facility] [address] [id number] [facility] [place] [address] Jul, [facility] [address] [id number] [facility] [place] [address] Jul, [facility] [address] [id number] [place] [address] Jul, [facility] [address] [id number] [facility] [place] [address] Jul, [facility] [address] [facility] [id number] [facility] [place] [address] 08 Jul, 2012 [facility] [address] [id number] [facility] [place] [address] Jul, [facility] [address] [id number] [place] [address] Jul, [facility] [address] [id number] [facility] [place] [address] June, [facility] [address] [id number] [facility] [place] [address] June, [facility] [address] [id number] [place] [address] June, [facility] [address] [id number] [place] [address] June, [facility] [address] [id number] [place] [address] June, [facility] [address] [id number] [place] [address] June, [facility] [address] [id number] [place] [address] June, [facility] [address] [id number] [place] [address] June, [facility] [address] [id number] [place] [address] June, [facility] [address] [id number] [place] [address] May, [facility] [address] [facility] [id number] [facility] [place] [address] May, [facility] [address] [facility] [id number] [place] [address] May, [facility] [address] [id number] [place] [address] May, [facility] [address] [id number] [place] [address] 15 May, 2012 [facility] [address] [facility] [id number] [place] [address] May, [facility] [address] [id number] [place] [address] May, [facility] [address] [id number] [place] [address] May, [facility] [address] [id number] [place] [address] May, [facility] [address] [id number] [place] [address] Apr, [facility] [address] [id number] [place] [address] Apr, [facility] [address] [id number] [place] [address] Apr, [facility] [address] [id number] [place] [address] Apr, [facility] [address] [facility] [id number] [place] [id number] Mar, [facility] [address] [id number] [place] [address] Mar, [facility] [address] [id number] [place] [address] Feb, [facility] [address] [id number] [place] [address] Feb, [facility] [address] [id number] [place] [address] 14 Feb, 2012 [facility] [address] [id number] [place] [address] Feb, [facility] [address] [id number] [place] [address] Feb, [facility] [address] [id number] [place] [address] Feb, [facility] [address] [id number] [place] [address] Feb, [facility] [address] [id number] [place] [address] Dec, [facility] [address] [id number] [place] [address] Dec, [facility] [id number] [place] [address] Dec, [facility] [address] [id number] [place] [address] Dec, [facility] [address] [id number] [place] [address] Dec, [facility] [address] [id number] [place] [address] Dec, [facility] [id number] [place] [address] Dec, [facility] [address] [id number] [place] [address] Dec, [facility] [address] [id number] [place] [address] Nov, [facility] [id number] [place] [address] Nov, [facility] [address] [id number] [place] [address] Nov, [facility] [address] [id number] [place] [address] Nov, IMMUNIZATIONS No Known Immunizations SOCIAL HISTORY [...]
--- OUTSIDE RECORDS SUMMARY | 2019-05-27 20:05 | XMS REPORT ---
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 Active 301 714228 Problem Bipolar disorder F31.9 Active 137 34876 Problem Peripheral arterial disease I73.9 Ac tive 426609829 Problem Hyperlipidemia E78.5 Active 17251 004 Problem History of ME (myocardial infarction) I25.2 Active 226725854 Problem Claudication I73.9 Active 7956722 00 Problem Bipolar disorder, current ep isode depressed, severe, without psychotic features F31.4 Active 257588945 Problem Essential hypertension I10 Active 41078791 Problem Other chronic pain G89.29 Active 8 6969333 Problem Schizoaffective disorder F25.9 Activ e 07423987 Problem Tobacco use Z72.0 Active 02638792 0 Problem Bipolar affective disorder, currently depressed, mild F31.31 Active 045721635 Problem Bipolar disorder, in partial remission, most rec ent episode depressed F31.75 Active 61902787 Problem Intrinsic eczema L20.84 Active 240 53504 ALLERGIES No Information ENCOUNTERS Encounter Location Date Diagnosis [facility] [id number] [place] [address] Apr, [facility] [id number] [place] [address] Mar, [facility] [address] [facility] [id number] [address] [place] [address] Feb, Right wrist pain M25.531 [facility] [id number] [place] [address] Feb, Right wrist pain M25.531 [facility] [address] [address] Feb, Right wrist pain M25.531 [facility] [address] [address] Feb, Right wrist pain M25.531 [facility] [address] [address] Feb, Low back pain M54.5 [facility] [address] [address] Jan, Low back pain M54.5 [facility] [address] [address] Jan, Low back pain M54.5 [facility] [address] [address] Jan, Low back pain M54.5 [facility] [address] [address] Jan, [facility] [address] [address] Jan, Low back pain M54.5 [place] [address] [address] Jan, Bipolar affective disorder, currently de pressed, mild F31.31 [place] [address] [address] Jan, Bipolar disorder, in partial remission, most recent episode depressed F31.75 ; Hyperlipidemia E78.5 and Essential hypertension I10 [facility] [address] [address] Jan, [place] [address] [address] Jan, Low back pain M54.5 [facility] [address] [address] Dec, Bipolar disorder, current episode depres sed, severe, without psychotic features F31.4 [place] [address] [address] 15 Dec, 2018 Chest pain, non-cardiac R07.89 ; Hyperli pidemia E78.5 ; Muscle spasm of back M62.830 ; Low back pain M54.5 ; Other chronic pain G89.29 ; Pain in thoracic spine M54.6 ; Essential hypertension I10 and Peripheral arterial disease I73.9 [place] [address] [address] Dec, [place] [address] [address] Dec, [place] [address] [address] Nov, Hyperlipidemia E78.5 and Essential hyper tension I10 [place] [address] [address] Nov, [place] [address] [address] Nov, Hyperlipidemia E78.5 ; Essential hyperte nsion I10 ; Peripheral arterial disease I73.9 ; Tobacco use Z72.0 ; Bipolar disorder, current episode depressed, severe, without psychotic features F31.4 ; Diarrhea, unspecified type R19.7 ; Encounter for screening for lung cancer Z12.2 and Encounter for immunization Z23 [place] [address] [address] Nov, [place] [address] [address] Nov, [place] [address] [address] Nov, Bipolar disorder, in partial remission, most recent episode depressed F31.75 ; Hyperlipidemia E78.5 and Essential hypertension I10 [place] [address] [address] Nov, [place] [address] [address] Nov, [facility] [address] [address] Oct, [facility] [address] [address] Oct, [facility] [address] [address] Oct, [facility] [address] [address] Sep, [facility] [address] [address] Aug, Bipolar disorder, in partial remission, most recent episode depressed F31.75 ; Hyperlipidemia E78.5 and Essential hypertension I10 [facility] [address] [address] Jul, [facility] [address] [address] June, Strain of left hamstring muscle, subsequ ent encounter S76.312D [facility] [address] [address] June, Bipolar disorder, in partial remission, most recent episode depressed F31.75 ; Hyperlipidemia E78.5 and Essential hypertension I10 [facility] [address] [address] May, Right wrist pain M25.531 [facility] [address] [address] May, Right wrist pain M25.531 [facility] [address] [facility] [id number] [address] [place] [address] May, Sebaceous cyst of right axil la L72.3 [facility] [address] [place] [id number] [place] [address] Apr, [facility] [address] [address] Apr, Peripheral arterial disease I73.9 [facility] [address] [address] Apr, Peripheral arterial disease I73.9 [facility] [address] [address] Apr, Bipolar disorder, in partial remission, most recent episode depressed F31.75 ; Hyperlipidemia E78.5 and Essential hypertension I10 [facility] [address] [address] Mar, [facility] [address] [address] Mar, [facility] [address] [address] Mar, [facility] [address] [address] Feb, Bipolar disorder, in partial remission, most recent episode depressed F31.75 ; Hyperlipidemia E78.5 and Essential hypertension I10 [facility] [address] [address] Dec, Bipolar disorder, in partial remission, most recent episode depressed F31.75 ; Hyperlipidemia E78.5 and Essential hypertension I10 [facility] [address] [address] Nov, [facility] [address] [address] Nov, [facility] [address] [address] Nov, Bipolar disorder, in partial remission, most recent episode depressed F31.75 ; Hyperlipidemia E78.5 and Essential hypertension I10 [facility] [address] [address] Nov, 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 [facility] [address] [address] Oct, Essential hypertension I10 and Hyperlipi demia E78.5 [place] [id number] [address] Sep, [facility] [address] [address] Sep, [facility] [address] [address] Sep, Skin lesion of foot L98.9 [facility] [address] [address] Aug, Bipolar disorder, in partial remission, most recent episode depressed F31.75 [place] [address] [address] Jul, Bipolar disorder, in partial remission, most recent episode depressed F31.75 [place] [address] [address] Jul, Peripheral arterial disease I73.9 [place] [address] [address] Apr, Bipolar disorder, in partial remission, most recent episode depressed F31.75 [facility] [address] [address] Apr, Peripheral arterial disease I73.9 [place] [address] [address] Apr, Peripheral arterial disease I73.9 ; Esse ntial hypertension I10 ; Hyperlipidemia E78.5 ; Bipolar disorder, in partial remission, most recent episode depressed F31.75 ; Tobacco use Z72.0 and Intrinsic eczema L20.84 [facility] [address] [address] Feb, Bipolar disorder, in partial remission, most recent episode depressed F31.75 [facility] [address] [address] Dec, Bipolar disorder, in partial remission, most recent episode depressed F31.75 [facility] [address] [address] Nov, [place] [address] [address] Oct, Hyperlipidemia E78.5 ; Essential hyperte nsion I10 ; Peripheral arterial disease I73.9 ; 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 and Encounter for immunization Z23 [place] [address] [address] Oct, 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 [place] [address] [address] Sep, Bipolar affective disorder, currently de pressed, mild F31.31 [place] [address] [address] Sep, Bipolar affective disorder, currently de pressed, mild F31.31 [place] [address] [address] Aug, Bipolar affective disorder, currently de pressed, mild F31.31 [place] [address] [address] Aug, Bipolar affective disorder, currently de pressed, mild F31.31 [place] [address] [address] Aug, Bipolar 1 disorder, mixed, partial remis ernestine F31.77 [place] [address] [address] Jul, Claudication I73.9 [place] [address] [address] Jul, Hyperlipidemia E78.5 [place] [address] [address] June, [place] [address] [address] June, [place] [address] [address] May, Bipolar 1 disorder, mixed, partial remis ernestine F31.77 [place] [address] [address] May, Bipolar 1 disorder, mixed, partial remis ernestine F31.77 [place] [address] [address] 10 Apr, 2016 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 [place] [address] [address] 28 Mar, 2016 Bipolar 1 disorder, mixed, partial remis ernestine F31.77 and Alcohol dependence, uncomplicated F10.20 [place] [address] [address] Mar, Hyperlipidemia E78.5 [place] [address] [address] Mar, Essential hypertension I10 ; Tobacco use Z72.0 and Claudication I73.9 [place] [address] [address] Mar, [place] [address] [address] Feb, Bipolar 1 disorder, mixed, partial remis ernestine F31.77 and Alcohol dependence in remission F10.21 [place] [address] [address] Jan, Peripheral arterial disease I73.9 and Bi polar 1 disorder, mixed, partial remission F31.77 [place] [address] [address] 13 Jan, 2016 [place] [address] [address] 05 Nov, 2015 [place] [address] [address] 13 Oct, 2015 Bipolar disorder, unspecified F31.9 and Alcohol dependence, uncomplicated F10.20 [place] [address] [address] Sep, Hyperlipidemia E78.5 ; Essential hyperte nsion I10 ; Peripheral arterial disease I73.9 and Tobacco use Z72.0 [place] [address] [address] Sep, Hyperlipidemia E78.5 [place] [address] [address] Aug, Bipolar 1 disorder, mixed, partial remis ernestine F31.77 and Alcohol dependence, uncomplicated F10.20 [place] [address] [address] June, Bipolar 1 disorder, mixed, partial remis ernestine F31.77 [place] [address] [address] May, Hypertension I10 ; Hyperlipidemia E78.5 ; PVD (peripheral vascular disease) I73.9 and Claudication I73.9 [place] [address] [address] Apr, [place] [address] [address] Apr, [place] [address] [address] Mar, [place] [address] [address] Mar, Hyperlipidemia E78.5 [place] [address] [address] Mar, Hyperlipidemia E78.5 and Peripheral summer rial disease I73.9 [place] [address] [address] Feb, Hyperlipidemia E78.5 ; Essential hyperte nsion I10 and Peripheral arterial disease I73.9 [place] [address] [address] Jan, [place] [address] [address] Jan, Bipolar disorder, unspecified F31.9 ; An xiety disorder, unspecified F41.9 ; Cannabis abuse, uncomplicated F12.10 and Alcohol dependence, uncomplicated F10.20 [place] [address] [address] Jan, Peripheral arterial disease I73.9 [place] [address] [address] Dec, Bipolar 1 disorder, mixed, partial remis ernestine F31.77 [place] [address] [address] Nov, [address] [address] Nov, Unspecified essential hypertension 401.[address] [address] Sep, Bipolar disorder, unspecified 296.80 [place] [address] [address] Aug, Unspecified essential hypertension 401.[address] [address] Aug, Bipolar disorder, unspecified 296.80 ; O ther and unspecified alcohol dependence, unspecified drunkenness 303.90 and Nondependent cannabis abuse, unspecified 305.[address] [address] Aug, [address] [address] Jul, Physical exam, annual V70.[address] [address] Jul, [address] [address] June, Bipolar disorder, unspecified 296.80 ; A nxiety state, unspecified 300.00 ; Cannabis abuse 305.20 and Alcohol dependence 303.[address] [id number] [facility] [place] [address] 14 May, 2014 [facility] [address] [facility] [id number] [place] [address] 13 May, 2014 [facility] [address] [facility] [id number] [place] [address] 26 Apr, 2014 [facility] [id number] [place] [address] Apr, [facility] [id number] [place] [address] Apr, [facility] [id number] [place] [address] Apr, [facility] [id number] [place] [address] Apr, [facility] [id number] [place] [address] Apr, [facility] [id number] [place] [address] Apr, [facility] [id number] [place] [address] Apr, [facility] [id number] [place] [address] Apr, [facility] [id number] [place] [address] Apr, [facility] [id number] [place] [address] Apr, [facility] [address] [facility] [id number] [place] [address] Mar, [facility] [id number] [place] [address] Mar, [facility] [id number] [place] [address] Mar, [facility] [id number] [place] [address] Mar, [facility] [id number] [place] [address] Feb, [facility] [id number] [place] [address] Feb, [facility] [id number] [place] [address] Feb, [facility] [id number] [place] [address] Feb, [facility] [id number] [place] [address] Feb, [facility] [id number] [place] [address] Feb, [facility] [id number] [place] [address] Feb, [facility] [id number] [place] [address] Feb, [facility] [id number] [place] [address] Feb, [facility] [id number] [place] [address] Jan, [facility] [id number] [place] [address] Jan, [facility] [id number] [place] [address] Nov, [facility] [id number] [place] [address] Nov, [facility] [id number] [place] [address] Nov, [facility] [id number] [place] [address] Nov, [facility] [id number] [place] [address] Oct, [facility] [id number] [place] [address] 16 Oct, 2013 [facility] [address] [id number] [place] [address] 16 Oct, 2013 [facility] [address] [facility] [id number] [place] [address] Oct, 2013 [facility] [address] [id number] [place] [address] Oct, 2013 [facility] [address] [id number] [place] [address] Oct, 2013 [facility] [address] [id number] [place] [address] Oct, [facility] [id number] [place] [address] Oct, [facility] [id number] [place] [address] Sep, [facility] [address] [id number] [place] [address] Sep, [facility] [address] [id number] [place] [address] Sep, [facility] [id number] [place] [address] Sep, [facility] [id number] [place] [address] Sep, [facility] [address] [id number] [place] [address] Sep, [facility] [address] [id number] [place] [address] Sep, [facility] [address] [id number] [place] [address] Sep, [facility] [id number] [place] [address] Sep, [facility] [id number] [place] [address] Sep, [facility] [address] [id number] [place] [address] Sep, [facility] [id number] [place] [address] Sep, [facility] [id number] [place] [address] Sep, [facility] [id number] [place] [address] Sep, [facility] [id number] [place] [address] Aug, [facility] [id number] [place] [address] Aug, [facility] [id number] [place] [address] Aug, [facility] [id number] [place] [address] Aug, [facility] [id number] [place] [address] Jul, [facility] [id number] [place] [address] Jul, [facility] [id number] [place] [address] May, [facility] [id number] [place] [address] May, [facility] [id number] [place] [address] May, [facility] [id number] [place] [address] 18 May, 2013 [facility] [id number] [place] [address] May, [facility] [id number] [place] [address] 17 May, 2013 [facility] [id number] [place] [address] 16 May, 2013 [facility] [address] [facility] [id number] [place] [address] 16 May, 2013 [facility] [address] [facility] [id number] [facility] [address] 15 May, 2013 [facility] [id number] [place] [address] 15 May, 2013 [facility] [id number] [facility] [address] 15 May, 2013 [facility] [address] [facility] [id number] [place] [address] 15 May, 2013 [facility] [id number] [place] [address] 08 May, 2013 [facility] [id number] [place] [address] 08 May, 2013 [facility] [id number] [place] [address] 11 Apr, 2013 [facility] [address] [facility] [id number] [place] [address] 11 Apr, 2013 [facility] [id number] [place] [address] Apr, [facility] [id number] [place] [address] Apr, [facility] [id number] [place] [address] 16 Feb, 2013 [facility] [address] [facility] [id number] [place] [address] 16 Feb, 2013 [facility] [address] [facility] [id number] [place] [address] Jan, [facility] [address] [facility] [id number] [place] [address] Jan, [facility] [id number] [place] [address] 17 Jan, 2013 [facility] [id number] [facility] [address] 17 Jan, 2012 [facility] [id number] [place] [address] 16 Jan, 2013 [facility] [id number] [place] [address] Jan, [facility] [id number] [place] [address] Jan, [facility] [id number] [place] [address] Jan, [facility] [id number] [place] [address] Dec, [facility] [id number] [place] [address] Dec, [facility] [id number] [place] [address] Dec, [facility] [id number] [place] [address] Dec, [facility] [id number] [place] [address] Dec, [facility] [id number] [place] [address] Dec, [facility] [id number] [place] [address] Dec, [facility] [id number] [place] [address] Dec, [facility] [id number] [place] [address] Dec, [facility] [id number] [place] [address] Nov, [facility] [id number] [place] [address] Nov, [facility] [id number] [place] [address] 29 Nov, 2012 [facility] [id number] [place] [address] 29 Nov, 2012 [facility] [id number] [place] [address] Nov, 2012 [facility] [id number] [place] [address] Nov, 2012 [facility] [id number] [place] [address] Nov, 2012 [facility] [id number] [place] [address] 18 Nov, 2012 [facility] [id number] [place] [address] Nov, 2012 [facility] [id number] [place] [address] 16 Nov, 2012 [facility] [id number] [place] [address] Nov, 2012 [facility] [id number] [place] [address] 09 Nov, 2012 [facility] [id number] [place] [address] Nov, 2012 [facility] [id number] [place] [address] 30 Oct, 2012 [facility] [id number] [place] [address] 25 Sep, 2012 [facility] [id number] [place] [address] 17 Sep, 2012 [facility] [id number] [place] [address] 13 Sep, 2012 [facility] [id number] [place] [address] 10 Sep, 2012 [facility] [id number] [place] [address] 10 Sep, 2012 [facility] [facility] [id number] [place] [address] Oct, [facility] [place] [facility] [address] [facility] [id number] [facility] [place] [address] Sep, [facility] [place] [facility] [address] [facility] [id number] [facility] [place] [address] Sep, [facility] [place] [facility] [address] [facility] [id number] [facility] [place] [address] Sep, [facility] [place] [facility] [address] [facility] [id number] [place] [address] 29 Aug, 2012 [facility] [place] [facility] [address] [facility] [id number] [facility] [place] [address] Aug, [facility] [place] [facility] [address] [facility] [id number] [facility] [place] [address] Aug, [facility] [place] [facility] [address] [facility] [id number] [place] [address] 16 Aug, 2012 [facility] [place] [facility] [id number] [facility] [place] [address] Aug, [facility] [place] [facility] [address] [facility] [id number] [facility] [place] [address] Aug, [facility] [place] [facility] [id number] [facility] [place] [address] Aug, [facility] [place] [facility] [address] [facility] [id number] [place] [address] Jul, [facility] [place] [facility] [id number] [place] [address] Jul, [facility] [place] [facility] [address] [facility] [id number] [facility] [place] [address] 14 Jul, 2012 [facility] [place] [facility] [address] [facility] [id number] [place] [address] Jul, [facility] [place] [facility] [address] [facility] [id number] [place] [address] Jul, [facility] [place] [facility] [id number] [facility] [place] [address] Jul, [facility] [place] [facility] [id number] [place] [address] Jul, [facility] [place] [facility] [address] [id number] [place] [address] Jul, [facility] [place] [facility] [id number] [place] [address] Jul, [facility] [place] [facility] [id number] [place] [address] Jul, [facility] [place] [facility] [id number] [place] [address] Jul, [facility] [place] [facility] [id number] [place] [address] Jul, [facility] [place] [facility] [id number] [place] [address] Jul, [facility] [place] [facility] [id number] [place] [address] June, [facility] [place] [facility] [id number] [place] [address] June, [facility] [place] [facility] [id number] [place] [address] June, [facility] [place] [facility] [id number] [place] [address] June, [facility] [place] [facility] [id number] [place] [address] June, [facility] [place] [facility] [id number] [place] [address] June, [facility] [place] [facility] [id number] [place] [address] June, [facility] [place] [facility] [id number] [place] [address] June, [facility] [place] [facility] [id number] [place] [address] June, [facility] [place] [facility] [id number] [place] [address] May, [facility] [place] [facility] [address] [id number] [place] [address] May, [facility] [place] [facility] [id number] [place] [address] May, [facility] [place] [facility] [id number] [place] [address] May, [facility] [place] [facility] [id number] [place] [address] 15 May, 2012 [facility] [place] [facility] [id number] [place] [address] 08 May, 2012 [facility] [place] [facility] [id number] [place] [address] May, [facility] [place] [facility] [id number] [place] [address] May, [facility] [place] [facility] [id number] [place] [address] May, [facility] [place] [facility] [id number] [place] [address] Apr, [facility] [place] [facility] [id number] [place] [address] Apr, [facility] [place] [facility] [id number] [place] [address] Apr, [facility] [place] [facility] [id number] [place] [address] Apr, [facility] [place] [facility] [address] [facility] [id number] [place] [id number] Mar, [facility] [place] [facility] [address] [facility] [id number] [place] [address] Mar, [facility] [place] [facility] [id number] [place] [address] Feb, [facility] [place] [facility] [id number] [place] [address] Feb, [facility] [place] [facility] [id number] [place] [address] 14 Feb, 2012 [facility] [id number] [place] [address] Feb, [facility] [id number] [place] [address] Feb, [facility] [id number] [place] [address] Feb, [facility] [id number] [place] [address] Feb, [facility] [id number] [place] [address] Dec, [facility] [id number] [place] [address] Dec, [facility] [id number] [place] [address] Dec, [facility] [id number] [place] [address] Dec, [facility] [id number] [place] [address] Dec, [facility] [id number] [place] [address] Dec, [facility] [id number] [place] [address] Dec, [facility] [id number] [place] [address] Dec, [facility] [id number] [place] [address] Nov, [facility] [id number] [place] [address] Nov, [facility] [id number] [place] [address] Nov, [facility] [id number] [place] [address] Nov, IMMUNIZATIONS No Known Immunizations SOCIAL HISTORY Never Assessed REASON FOR VISIT PLAN OF CARE VITAL SIGNS Height 69 in 2013-06-15 Weight 185.06 lbs 2013-06-15 Temperature 97.5 degrees Fahrenheit 2013-06-15 Heart Rate 74 bpm 2013-06-15 Respiratory Rate 18 2013-06-15 Blood pressure systolic 132 mmHg 2013-06-15 Blood pressure diastolic 84 mmHg 2013-06-15 MEDICATIONS Unknown Medications RESULTS No Results PROCEDURES Procedure Date Ordered Result Body Site DRAIN/INJECT, JOINT/BURSA June 15, 2013 INSTRUCTIONS MEDICATIONS ADMINISTERED No Known Medications MEDICAL [...]
--- OUTSIDE RECORDS SUMMARY | 2019-05-27 20:05 | XMS REPORT ---
Author Author Ryan PITT Organization [facility] Address [address] [place] [address] Care Team Providers Care Philanthropy Officer Name Role Phone JERRY PITT Unavailable PROBLEMS Type Condition ICD9-CM Code FYT24-GU Code Onset Dates Condition S tatus SNOMED Code Problem Peripheral arterial disease I73.9 Ac tive 308765025 Problem 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 Active 301 368017 Problem Schizoaffective disorder F25.9 Activ e 12011627 Problem Bipolar disorder F31.9 Active 137 83133 Problem History of NV (myocardial infarction) I25.2 Active 422112221 Problem Claudication I73.9 Active 0933069 00 Problem Tobacco use Z72.0 Active 47872159 0 Problem Other chronic pain G89.29 Active 8 6850243 Problem Hyperlipidemia E78.5 Active 36382 004 Problem Popliteal artery aneurysm, bilateral I72.4 Active 79621253 Problem Essential hypertension I10 Active 11713675 Problem Bipolar affective disorder, currently depressed, mild F31.31 Active 155774917 Problem Bipolar disorder, in partial remission, most rec ent episode depressed F31.75 Active 45551468 Problem Intrinsic eczema L20.84 Active 240 29624 Problem Bipolar disorder, current ep isode depressed, severe, without psychotic features F31.4 Active 330256914 ALLERGIES No Information ENCOUNTERS Encounter Location Date Diagnosis [facility] [address] [id number] [place] [address] Apr, [facility] [address] [id number] [place] [address] Mar, Essential hypertension I10 ; Peripheral arterial disease I73.9 ; 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 and Popliteal artery aneurysm, bilateral I72.4 [facility] [address] [facility] [id number] [address] [place] [address] Feb, Right wrist pain M25.531 [facility] [address] [address] Feb, Right wrist pain M25.531 [facility] [address] [address] 2019 Right wrist pain M25.531 [facility] [address] [address] Feb, Right wrist pain M25.531 [facility] [address] [address] Feb, Low back pain M54.5 [facility] [address] [address] Jan, Low back pain M54.5 [place] [address] [address] Jan, Low back pain M54.5 [facility] [address] [address] Jan, Low back pain M54.5 [facility] [address] [address] Jan, [facility] [address] [address] Jan, Low back pain M54.5 [place] [address] [address] Jan, Bipolar affective disorder, currently de pressed, mild F31.31 [place] [address] [address] Jan, Bipolar disorder, in partial remission, most recent episode depressed F31.75 ; Hyperlipidemia E78.5 and Essential hypertension I10 [facility] [address] [address] Jan, [facility] [address] [address] Jan, Low back pain M54.5 [place] [address] [address] 15 Dec, 2018 Bipolar disorder, current episode depres sed, severe, without psychotic features F31.4 [place] [address] [address] 15 Dec, 2018 Chest pain, non-cardiac R07.89 ; Hyperli pidemia E78.5 ; Muscle spasm of back M62.830 ; Low back pain M54.5 ; Other chronic pain G89.29 ; Pain in thoracic spine M54.6 ; Essential hypertension I10 and Peripheral arterial disease I73.[address] [address] Dec, [place] [address] [address] Dec, [address] [address] Nov, Hyperlipidemia E78.5 and Essential hyper tension I10 [place] [address] [address] Nov, [address] [address] Nov, Hyperlipidemia E78.5 ; Essential hyperte nsion I10 ; Peripheral arterial disease I73.9 ; Tobacco use Z72.0 ; Bipolar disorder, current episode depressed, severe, without psychotic features F31.4 ; Diarrhea, unspecified type R19.7 ; Encounter for screening for lung cancer Z12.2 and Encounter for immunization Z23 [place] [address] [address] Nov, [address] [address] Nov, [address] [address] Nov, Bipolar disorder, in partial remission, most recent episode depressed F31.75 ; Hyperlipidemia E78.5 and Essential hypertension I10 [facility] [address] [place] [id number] [place] [address] Nov, [facility] [address] [address] Nov, [facility] [address] [address] Oct, [facility] [address] [address] Oct, [facility] [address] [address] Oct, [facility] [address] [address] Sep, [facility] [address] [address] Aug, Bipolar disorder, in partial remission, most recent episode depressed F31.75 ; Hyperlipidemia E78.5 and Essential hypertension I10 [facility] [address] [address] Jul, [facility] [address] [address] June, Strain of left hamstring muscle, subsequ ent encounter S76.312D [place] [address] [address] June, Bipolar disorder, in partial remission, most recent episode depressed F31.75 ; Hyperlipidemia E78.5 and Essential hypertension I10 [facility] [address] [address] May, Right wrist pain M25.531 [facility] [address] [address] May, Right wrist pain M25.531 [facility] [address] [facility] [id number] [address] [place] [address] May, Sebaceous cyst of right axil la L72.3 [facility] [address] [id number] [place] [address] Apr, [facility] [address] [id number] [place] [address] Apr, Peripheral arterial disease I73.9 [facility] [address] [id number] [place] [address] 14 Apr, 2018 Peripheral arterial disease I73.9 [facility] [address] [id number] [place] [address] 13 Apr, 2018 Bipolar disorder, in partial remission, most recent episode depressed F31.75 ; Hyperlipidemia E78.5 and Essential hypertension I10 [facility] [address] [place] [id number] [place] [address] Mar, [facility] [address] [place] [id number] [place] [address] Mar, [facility] [address] [place] [id number] [place] [address] Mar, [facility] [address] [id number] [place] [address] Feb, Bipolar disorder, in partial remission, most recent episode depressed F31.75 ; Hyperlipidemia E78.5 and Essential hypertension I10 [facility] [address] [place] [id number] [place] [address] Dec, Bipolar disorder, in partial remission, most recent episode depressed F31.75 ; Hyperlipidemia E78.5 and Essential hypertension I10 [facility] [address] [place] [id number] [place] [address] Nov, [facility] [address] [id number] [place] [address] Nov, [facility] [address] [place] [id number] [place] [address] Nov, Bipolar disorder, in partial remission, most recent episode depressed F31.75 ; Hyperlipidemia E78.5 and Essential hypertension I10 [facility] [address] [place] [id number] [place] [address] Nov, 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 [facility] [address] [address] Oct, Essential hypertension I10 and Hyperlipi demia E78.5 [facility] [address] [address] Sep, [place] [address] [address] Sep, [place] [address] [address] Sep, Skin lesion of foot L98.9 [place] [address] [address] Aug, Bipolar disorder, in partial remission, most recent episode depressed F31.75 [place] [address] [address] Jul, Bipolar disorder, in partial remission, most recent episode depressed F31.75 [place] [address] [address] Jul, Peripheral arterial disease I73.9 [place] [address] [address] Apr, Bipolar disorder, in partial remission, most recent episode depressed F31.75 [place] [address] [address] Apr, Peripheral arterial disease I73.9 [place] [address] [address] Apr, Peripheral arterial disease I73.9 ; Esse ntial hypertension I10 ; Hyperlipidemia E78.5 ; Bipolar disorder, in partial remission, most recent episode depressed F31.75 ; Tobacco use Z72.0 and Intrinsic eczema L20.84 [place] [address] [place] [id number] [place] [address] Feb, Bipolar disorder, in partial remission, most recent episode depressed F31.75 [place] [address] [address] Dec, Bipolar disorder, in partial remission, most recent episode depressed F31.75 [place] [address] [address] Nov, [place] [address] [address] Oct, Hyperlipidemia E78.5 ; Essential hyperte nsion I10 ; Peripheral arterial disease I73.9 ; 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 and Encounter for immunization Z23 [place] [address] [address] Oct, 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 [place] [address] [address] Sep, Bipolar affective disorder, currently de pressed, mild F31.[address] [address] Sep, Bipolar affective disorder, currently de pressed, mild F31.31 [place] [address] [address] Aug, Bipolar affective disorder, currently de pressed, mild F31.31 [place] [address] [address] Aug, Bipolar affective disorder, currently de pressed, mild F31.31 [place] [address] [address] Aug, Bipolar 1 disorder, mixed, partial remis ernestine F31.77 [place] [address] [address] Jul, Claudication I73.[address] [address] Jul, Hyperlipidemia E78.5 [place] [address] [address] June, [place] [id number] June, [place] [address] [address] May, Bipolar 1 disorder, mixed, partial remis ernestine F31.77 [place] [address] [address] May, Bipolar 1 disorder, mixed, partial remis ernestine F31.77 [place] [address] [address] Apr, 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 [place] [address] [address] 28 Mar, 2016 Bipolar 1 disorder, mixed, partial remis ernestine F31.77 and Alcohol dependence, uncomplicated F10.20 [place] [address] [address] 27 Mar, 2016 Hyperlipidemia E78.5 [place] [address] [address] Mar, Essential hypertension I10 ; Tobacco use Z72.0 and Claudication I73.[address] [address] Mar, [place] [address] [address] Feb, Bipolar 1 disorder, mixed, partial remis ernestine F31.77 and Alcohol dependence in remission F10.21 [place] [address] [address] Jan, Peripheral arterial disease I73.9 and Bi polar 1 disorder, mixed, partial remission F31.77 [place] [address] [address] Jan, [place] [address] [address] 05 Nov, 2015 [place] [address] [address] Oct, Bipolar disorder, unspecified F31.9 and Alcohol dependence, uncomplicated F10.20 [place] [address] [address] Sep, Hyperlipidemia E78.5 ; Essential hyperte nsion I10 ; Peripheral arterial disease I73.9 and Tobacco use Z72.0 [place] [address] [address] Sep, Hyperlipidemia E78.5 [place] [address] [address] Aug, Bipolar 1 disorder, mixed, partial remis ernestine F31.77 and Alcohol dependence, uncomplicated F10.20 [place] [address] [address] June, Bipolar 1 disorder, mixed, partial remis ernestine F31.77 [place] [address] [address] May, Hypertension I10 ; Hyperlipidemia E78.5 ; PVD (peripheral vascular disease) I73.9 and Claudication I73.9 [place] [address] [address] Apr, [place] [address] [address] Apr, [place] [address] [address] Mar, [place] [address] [address] Mar, Hyperlipidemia E78.5 [place] [address] [address] Mar, Hyperlipidemia E78.5 and Peripheral summer rial disease I73.9 [place] [address] [address] Feb, Hyperlipidemia E78.5 ; Essential hyperte nsion I10 and Peripheral arterial disease I73.9 [place] [address] [address] 15 Jan, 2015 [place] [address] [address] Jan, Bipolar disorder, unspecified F31.9 ; An xiety disorder, unspecified F41.9 ; Cannabis abuse, uncomplicated F12.10 and Alcohol dependence, uncomplicated F10.20 [place] [address] [address] Jan, Peripheral arterial disease I73.9 [place] [address] [address] Dec, Bipolar 1 disorder, mixed, partial remis ernestine F31.77 [place] [address] [address] Nov, [place] [address] [address] Nov, Unspecified essential hypertension 401.9 [place] [address] [address] Sep, Bipolar disorder, unspecified 296.80 [place] [address] [address] Aug, Unspecified essential hypertension 401.9 [place] [address] [address] Aug, Bipolar disorder, unspecified 296.80 ; O ther and unspecified alcohol dependence, unspecified drunkenness 303.90 and Nondependent cannabis abuse, unspecified 305.20 [place] [address] [address] Aug, [address] [address] Jul, Physical exam, annual V70.0 [place] [address] [address] Jul, [place] [address] [place] [address] June, Bipolar disorder, unspecified 296.80 ; A nxiety state, unspecified 300.00 ; Cannabis abuse 305.20 and Alcohol dependence 303.90 [facility] [address] [place] [id number] [place] [address] May, [facility] [address] [place] [id number] [place] [address] May, [facility] [address] [address] Apr, [facility] [address] [address] Apr, [facility] [address] [address] Apr, [facility] [address] [address] Apr, [facility] [address] [address] Apr, [facility] [address] [place] [id number] [place] [address] Apr, [facility] [address] [address] Apr, [facility] [address] [place] [id number] [place] [address] Apr, [facility] [address] [address] Apr, [facility] [address] [place] [id number] [place] [address] Apr, [facility] [address] [address] Apr, [facility] [address] [place] [id number] [place] [address] Mar, [facility] [address] [address] Mar, [facility] [address] [id number] [place] [address] Mar, [facility] [address] [id number] [place] [address] Mar, [facility] [address] [id number] [place] [address] Feb, [facility] [address] [id number] [place] [address] Feb, [facility] [address] [id number] [place] [address] Feb, [facility] [address] [id number] [place] [address] Feb, [facility] [address] [id number] [place] [address] Feb, [facility] [address] [place] [place] [id number] [place] [address] Feb, [facility] [address] [id number] [place] [address] Feb, [facility] [address] [id number] [place] [address] Feb, [facility] [address] [id number] [place] [address] Feb, [facility] [address] [id number] [place] [address] Jan, [facility] [address] [id number] [place] [address] Jan, [facility] [address] [id number] [place] [address] Nov, [facility] [address] [id number] [place] [address] Nov, [facility] [address] [id number] [place] [address] Nov, [facility] [address] [id number] [place] [address] Nov, [facility] [address] [id number] [facility] [address] 16 Oct, 2013 [facility] [address] [facility] [id number] [facility] [address] 16 Oct, 2013 [facility] [address] [id number] [facility] [address] 16 Oct, 2013 [facility] [address] [id number] [facility] [address] 16 Oct, 2013 [facility] [address] [facility] [id number] [facility] [address] Oct, 2013 [facility] [address] [id number] [place] [address] Oct, 2013 [facility] [address] [id number] [place] [address] Oct, 2013 [facility] [address] [id number] [place] [address] Oct, 2013 [facility] [address] [id number] [place] [address] Sep, [facility] [address] [id number] [place] [address] Sep, [facility] [address] [id number] [place] [address] Sep, [facility] [address] [id number] [place] [address] Sep, [facility] [address] [id number] [place] [address] Sep, [facility] [address] [id number] [place] [address] Sep, [facility] [address] [id number] [place] [address] Sep, [facility] [address] [id number] [place] [address] Sep, [facility] [address] [id number] [facility] [address] Sep, [facility] [address] [id number] [facility] [address] Sep, [facility] [address] [facility] [id number] [place] [address] Sep, [facility] [address] [id number] [place] [address] Sep, [facility] [address] [facility] [id number] [place] [address] Sep, [facility] [address] [facility] [id number] [place] [address] Sep, [facility] [address] [id number] [place] [address] Aug, [facility] [address] [id number] [place] [address] Aug, [facility] [address] [id number] [place] [address] Aug, [facility] [address] [id number] [place] [address] Aug, [facility] [address] [id number] [place] [address] Jul, [facility] [address] [id number] [place] [address] Jul, [facility] [address] [id number] [place] [address] May, [facility] [address] [facility] [id number] [place] [address] May, [facility] [address] [id number] [place] [address] May, [facility] [address] [id number] [place] [address] May, [facility] [address] [id number] [place] [address] May, [facility] [address] [facility] [id number] [place] [address] 17 May, 2013 [facility] [address] [id number] [place] [address] 16 May, 2013 [facility] [address] [id number] [place] [address] 16 May, 2013 [facility] [address] [id number] [place] [address] 15 May, 2013 [facility] [address] [facility] [id number] [place] [address] 15 May, 2013 [facility] [address] [id number] [place] [address] 15 May, 2013 [facility] [address] [id number] [place] [address] 15 May, 2013 [facility] [address] [id number] [place] [address] 08 May, 2013 [facility] [address] [id number] [place] [address] 08 May, 2013 [facility] [address] [id number] [place] [address] 11 Apr, 2013 [facility] [address] [id number] [place] [address] Apr, [facility] [address] [id number] [place] [address] Apr, [facility] [address] [id number] [place] [address] Apr, [facility] [address] [id number] [place] [address] 16 Feb, 2013 [facility] [address] [id number] [place] [address] 16 Feb, 2013 [facility] [address] [id number] [place] [address] Jan, [facility] [address] [id number] [place] [address] Jan, 2012 [facility] [address] [id number] [place] [address] Jan, [facility] [address] [id number] [place] [address] Jan, [facility] [address] [id number] [place] [address] Jan, [facility] [address] [id number] [place] [address] Jan, [facility] [address] [id number] [place] [address] Jan, [facility] [address] [id number] [place] [address] Jan, [facility] [address] [id number] [place] [address] Dec, [facility] [address] [id number] [place] [address] Dec, [facility] [address] [id number] [place] [address] Dec, [facility] [id number] [place] [address] Dec, [facility] [address] [id number] [place] [address] Dec, [facility] [address] [id number] [place] [address] Dec, [facility] [address] [id number] [place] [address] 07 Dec, 2012 [facility] [address] [id number] [place] [address] Dec, [facility] [address] [id number] [place] [address] 07 Dec, 2012 [facility] [address] [id number] [place] [address] Nov, [facility] [address] [id number] [place] [address] 31 Nov, 2012 [facility] [address] [facility] [id number] [place] [address] 29 Nov, 2012 [facility] [address] [id number] [place] [address] 29 Nov, 2012 [facility] [address] [id number] [place] [address] Nov, 2012 [facility] [address] [id number] [place] [address] Nov, 2012 [facility] [address] [id number] [place] [address] Nov, 2012 [facility] [address] [id number] [place] [address] 18 Nov, 2012 [facility] [address] [id number] [place] [address] 16 Nov, 2012 [facility] [address] [id number] [place] [address] 16 Nov, 2012 [facility] [address] [id number] [place] [address] Nov, 2012 [facility] [address] [id number] [place] [address] 09 Nov, 2012 [facility] [address] [id number] [place] [address] Nov, 2012 [facility] [address] [id number] [place] [address] 30 Oct, 2012 [facility] [address] [facility] [id number] [place] [address] 25 Sep, 2012 [facility] [address] [id number] [place] [address] 17 Sep, 2012 [facility] [address] [id number] [place] [address] 13 Sep, 2012 [facility] [address] [id number] [place] [address] 10 Oct, 2012 [facility] [address] [facility] [id number] [place] [address] 10 Oct, 2012 [facility] [address] [facility] [id number] [place] [address] 10 Oct, 2012 [facility] [address] [id number] [place] [address] 16 Sep, 2012 [facility] [address] [id number] [place] [address] 15 Sep, 2012 [facility] [address] [facility] [id number] [facility] [place] [address] Sep, [facility] [address] [id number] [place] [address] 29 Aug, 2012 [facility] [address] [id number] [place] [address] Aug, [facility] [address] [id number] [place] [address] 17 Aug, 2012 [facility] [address] [id number] [place] [address] 16 Aug, 2012 [facility] [address] [id number] [place] [address] Aug, [facility] [address] [id number] [place] [address] Aug, [facility] [address] [id number] [place] [address] Aug, [facility] [address] [id number] [place] [address] Jul, [facility] [address] [facility] [id number] [place] [address] Jul, [facility] [address] [id number] [place] [address] 14 Jul, 2012 [facility] [address] [id number] [place] [address] 13 Jul, 2012 [facility] [address] [id number] [place] [address] Jul, [facility] [address] [id number] [facility] [address] Jul, [facility] [address] [id number] [facility] [address] Jul, [facility] [address] [id number] [facility] [address] Jul, [facility] [address] [id number] [facility] [address] 10 Jul, 2012 [facility] [address] [id number] [facility] [place] [address] Jul, [facility] [address] [id number] [place] [address] Jul, [facility] [address] [id number] [place] [address] Jul, [facility] [address] [id number] [place] [address] Jul, [facility] [address] [id number] [place] [address] June, [facility] [address] [id number] [place] [address] June, [facility] [address] [id number] [place] [address] June, [facility] [address] [id number] [place] [address] June, [facility] [address] [id number] [place] [address] June, [facility] [address] [id number] [place] [address] June, [facility] [address] [id number] [place] [address] June, [facility] [address] [id number] [place] [address] June, [facility] [address] [id number] [place] [address] June, [facility] [address] [facility] [id number] [place] [address] May, [facility] [address] [id number] [place] [address] May, [facility] [address] [id number] [place] [address] May, [facility] [address] [id number] [place] [address] May, [facility] [address] [id number] [place] [address] May, [facility] [address] [id number] [place] [address] May, [facility] [address] [id number] [place] [address] May, [facility] [address] [id number] [place] [address] May, [facility] [address] [id number] [place] [address] May, [facility] [address] [id number] [place] [address] Apr, [facility] [address] [id number] [place] [address] Apr, [facility] [address] [id number] [place] [address] Apr, [facility] [address] [facility] [id number] [place] [address] Apr, [facility] [address] [facility] [id number] [place] [id number] Mar, [facility] [address] [id number] [place] [address] Mar, [facility] [address] [id number] [place] [address] Feb, [facility] [address] [id number] [place] [address] Feb, [facility] [address] [id number] [place] [address] 14 Feb, 2012 [facility] [address] [id number] [place] [address] 10 Feb, 2012 [facility] [address] [id number] [place] [address] Feb, [facility] [address] [id number] [place] [address] Feb, [facility] [address] [id number] [place] [address] Feb, [facility] [address] [id number] [place] [address] Dec, [facility] [id number] [place] [address] Dec, [facility] [address] [id number] [place] [address] Dec, [facility] [address] [id number] [place] [address] Dec, [facility] [address] [id number] [place] [address] Dec, [facility] [address] [id number] [place] [address] Dec, [facility] [address] [id number] [place] [address] Dec, [facility] [address] [id number] [place] [address] Dec, [facility] [address] [id number] [place] [address] Nov, [facility] [address] [id number] [place] [address] Nov, [facility] [address] [id number] [place] [address] Nov, [facility] [address] [facility] [id number] [place] [address] Nov, IMMUNIZATIONS No Known Immunizations SOCIAL HISTORY [...] Surgical History vasectomy-09/01/[address] Flores at [facility] Surgical History Stent placed in groin on right side 2014 Surgical History Blood clot removed from right knee 2014 Surgical History Balloon angioplasty [facility]- Dr. Rebolledo 03/10 Surgical History right wrist 10/08/18 Hospitalization History Hospitalization for surgery only
--- OUTSIDE RECORDS SUMMARY | 2019-05-27 20:05 | XMS REPORT ---
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 Role Phone JERRY PITT Unavailable PROBLEMS Type Condition ICD9-CM Code PCH91-GA Code Onset Dates Condition S tatus SNOMED Code Problem Peripheral arterial disease I73.9 Ac tive 696729872 Problem 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 Active 301 141199 Problem Schizoaffective disorder F25.9 Activ e 59062641 Problem Bipolar disorder F31.9 Active 137 75424 Problem History of SC (myocardial infarction) I25.2 Active 760782638 Problem Claudication I73.9 Active 2390184 00 Problem Tobacco use Z72.0 Active 38204197 0 Problem Other chronic pain G89.29 Active 8 4145910 Problem Hyperlipidemia E78.5 Active 47755 004 Problem Popliteal artery aneurysm, bilateral I72.4 Active 48957540 Problem Essential hypertension I10 Active 94349124 Problem Bipolar affective disorder, currently depressed, mild F31.31 Active 709346651 Problem Bipolar disorder, in partial remission, most rec ent episode depressed F31.75 Active 94740444 Problem Intrinsic eczema L20.84 Active 240 13828 Problem Bipolar disorder, current ep isode depressed, severe, without psychotic features F31.4 Active 300307640 ALLERGIES No Information ENCOUNTERS Encounter Location Date Diagnosis [facility] [address] [id number] [place] [address] Apr, [facility] [address] 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 and Popliteal artery aneurysm, bilateral I72.4 [facility] [address] [facility] [id number] [address] [place] [address] Feb, Right wrist pain M25.531 [facility] [address] [address] Feb, Right wrist pain M25.531 [facility] [address] [address] 2019 Right wrist pain M25.531 [facility] [address] [address] Feb, Right wrist pain M25.531 [facility] [address] [address] Feb, Low back pain M54.5 [facility] [address] [address] Jan, Low back pain M54.5 [place] [address] [address] Jan, Low back pain M54.5 [facility] [address] [address] Jan, Low back pain M54.5 [facility] [address] [address] Jan, [facility] [address] [address] Jan, Low back pain M54.5 [place] [address] [address] Jan, Bipolar affective disorder, currently de pressed, mild F31.31 [place] [address] [address] Jan, Bipolar disorder, in partial remission, most recent episode depressed F31.75 ; Hyperlipidemia E78.5 and Essential hypertension I10 [facility] [address] [address] Jan, [facility] [address] [address] Jan, Low back pain M54.5 [place] [address] [address] 15 Dec, 2018 Bipolar disorder, current episode depres sed, severe, without psychotic features F31.4 [place] [address] [address] 15 Dec, 2018 Chest pain, non-cardiac R07.89 ; Hyperli pidemia E78.5 ; Muscle spasm of back M62.830 ; Low back pain M54.5 ; Other chronic pain G89.29 ; Pain in thoracic spine M54.6 ; Essential hypertension I10 and Peripheral arterial disease I73.[address] [address] Dec, [place] [address] [address] Dec, [address] [address] Nov, Hyperlipidemia E78.5 and Essential hyper tension I10 [place] [address] [address] Nov, [address] [address] Nov, Hyperlipidemia E78.5 ; Essential hyperte nsion I10 ; Peripheral arterial disease I73.9 ; Tobacco use Z72.0 ; Bipolar disorder, current episode depressed, severe, without psychotic features F31.4 ; Diarrhea, unspecified type R19.7 ; Encounter for screening for lung cancer Z12.2 and Encounter for immunization Z23 [place] [address] [address] Nov, [address] [address] Nov, [address] [address] Nov, Bipolar disorder, in partial remission, most recent episode depressed F31.75 ; Hyperlipidemia E78.5 and Essential hypertension I10 [facility] [address] [place] [id number] [place] [address] Nov, [facility] [address] [address] Nov, [facility] [address] [address] Oct, [facility] [address] [address] Oct, [facility] [address] [address] Oct, [facility] [address] [address] Sep, [facility] [address] [address] Aug, Bipolar disorder, in partial remission, most recent episode depressed F31.75 ; Hyperlipidemia E78.5 and Essential hypertension I10 [facility] [address] [address] Jul, [facility] [address] [address] June, Strain of left hamstring muscle, subsequ ent encounter S76.312D [place] [address] [address] June, Bipolar disorder, in partial remission, most recent episode depressed F31.75 ; Hyperlipidemia E78.5 and Essential hypertension I10 [facility] [address] [address] May, Right wrist pain M25.531 [facility] [address] [address] May, Right wrist pain M25.531 [facility] [address] [facility] [id number] [address] [place] [address] May, Sebaceous cyst of right axil la L72.3 [facility] [address] [facility] [place] [address] Apr, [facility] [address] [facility] [place] [address] Apr, Peripheral arterial disease I73.9 [facility] [address] [facility] [place] [address] 14 Apr, 2018 Peripheral arterial disease I73.9 [facility] [address] [facility] [place] [address] 13 Apr, 2018 Bipolar disorder, in partial remission, most recent episode depressed F31.75 ; Hyperlipidemia E78.5 and Essential hypertension I10 [facility] [address] [place] [id number] [place] [address] Mar, [facility] [address] [place] [id number] [place] [address] Mar, [facility] [address] [place] [id number] [place] [address] Mar, [facility] [address] [facility] [place] [address] Feb, Bipolar disorder, in partial remission, most recent episode depressed F31.75 ; Hyperlipidemia E78.5 and Essential hypertension I10 [facility] [address] [place] [id number] [place] [address] Dec, Bipolar disorder, in partial remission, most recent episode depressed F31.75 ; Hyperlipidemia E78.5 and Essential hypertension I10 [facility] [address] [place] [id number] [place] [address] Nov, [facility] [address] [facility] [place] [address] Nov, [facility] [address] [place] [id number] [place] [address] Nov, Bipolar disorder, in partial remission, most recent episode depressed F31.75 ; Hyperlipidemia E78.5 and Essential hypertension I10 [facility] [address] [place] [id number] [place] [address] Nov, 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 [facility] [address] [address] Oct, Essential hypertension I10 and Hyperlipi demia E78.5 [facility] [address] [address] Sep, [place] [address] [address] Sep, [place] [address] [address] Sep, Skin lesion of foot L98.9 [place] [address] [address] Aug, Bipolar disorder, in partial remission, most recent episode depressed F31.75 [place] [address] [address] Jul, Bipolar disorder, in partial remission, most recent episode depressed F31.75 [place] [address] [address] Jul, Peripheral arterial disease I73.9 [place] [address] [address] Apr, Bipolar disorder, in partial remission, most recent episode depressed F31.75 [place] [address] [address] Apr, Peripheral arterial disease I73.9 [place] [address] [address] Apr, Peripheral arterial disease I73.9 ; Esse ntial hypertension I10 ; Hyperlipidemia E78.5 ; Bipolar disorder, in partial remission, most recent episode depressed F31.75 ; Tobacco use Z72.0 and Intrinsic eczema L20.84 [place] [address] [place] [id number] [place] [address] Feb, Bipolar disorder, in partial remission, most recent episode depressed F31.75 [place] [address] [address] Dec, Bipolar disorder, in partial remission, most recent episode depressed F31.75 [place] [address] [address] Nov, [place] [address] [address] Oct, Hyperlipidemia E78.5 ; Essential hyperte nsion I10 ; Peripheral arterial disease I73.9 ; 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 and Encounter for immunization Z23 [place] [address] [address] Oct, 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 [place] [address] [address] Sep, Bipolar affective disorder, currently de pressed, mild F31.[address] [address] Sep, Bipolar affective disorder, currently de pressed, mild F31.31 [place] [address] [address] Aug, Bipolar affective disorder, currently de pressed, mild F31.31 [place] [address] [address] Aug, Bipolar affective disorder, currently de pressed, mild F31.31 [place] [address] [address] Aug, Bipolar 1 disorder, mixed, partial remis ernestine F31.77 [place] [address] [address] Jul, Claudication I73.[address] [address] Jul, Hyperlipidemia E78.5 [place] [address] [address] June, [place] [address] June, [place] [address] [address] May, Bipolar 1 disorder, mixed, partial remis ernestine F31.77 [place] [address] [address] May, Bipolar 1 disorder, mixed, partial remis ernestine F31.77 [place] [address] [address] Apr, 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 [place] [address] [address] 28 Mar, 2016 Bipolar 1 disorder, mixed, partial remis ernestine F31.77 and Alcohol dependence, uncomplicated F10.20 [place] [address] [address] 27 Mar, 2016 Hyperlipidemia E78.5 [place] [address] [address] Mar, Essential hypertension I10 ; Tobacco use Z72.0 and Claudication I73.[address] [address] Mar, [place] [address] [address] Feb, Bipolar 1 disorder, mixed, partial remis ernestine F31.77 and Alcohol dependence in remission F10.21 [place] [address] [address] Jan, Peripheral arterial disease I73.9 and Bi polar 1 disorder, mixed, partial remission F31.77 [place] [address] [address] Jan, [place] [address] [address] 05 Nov, 2015 [place] [address] [address] Oct, Bipolar disorder, unspecified F31.9 and Alcohol dependence, uncomplicated F10.20 [place] [address] [address] Sep, Hyperlipidemia E78.5 ; Essential hyperte nsion I10 ; Peripheral arterial disease I73.9 and Tobacco use Z72.0 [place] [address] [address] Sep, Hyperlipidemia E78.5 [place] [address] [address] Aug, Bipolar 1 disorder, mixed, partial remis ernestine F31.77 and Alcohol dependence, uncomplicated F10.20 [place] [address] [address] June, Bipolar 1 disorder, mixed, partial remis ernestine F31.77 [place] [address] [address] May, Hypertension I10 ; Hyperlipidemia E78.5 ; PVD (peripheral vascular disease) I73.9 and Claudication I73.9 [place] [address] [address] Apr, [place] [address] [address] Apr, [place] [address] [address] Mar, [place] [address] [address] Mar, Hyperlipidemia E78.5 [place] [address] [address] Mar, Hyperlipidemia E78.5 and Peripheral summer rial disease I73.9 [place] [address] [address] Feb, Hyperlipidemia E78.5 ; Essential hyperte nsion I10 and Peripheral arterial disease I73.9 [place] [address] [address] 15 Jan, 2015 [place] [address] [address] Jan, Bipolar disorder, unspecified F31.9 ; An xiety disorder, unspecified F41.9 ; Cannabis abuse, uncomplicated F12.10 and Alcohol dependence, uncomplicated F10.20 [place] [address] [address] Jan, Peripheral arterial disease I73.9 [place] [address] [address] Dec, Bipolar 1 disorder, mixed, partial remis ernestine F31.77 [place] [address] [address] Nov, [place] [address] [address] Nov, Unspecified essential hypertension 401.9 [place] [address] [address] Sep, Bipolar disorder, unspecified 296.80 [place] [address] [address] Aug, Unspecified essential hypertension 401.9 [place] [address] [address] Aug, Bipolar disorder, unspecified 296.80 ; O ther and unspecified alcohol dependence, unspecified drunkenness 303.90 and Nondependent cannabis abuse, unspecified 305.20 [place] [address] [address] Aug, [address] [address] Jul, Physical exam, annual V70.0 [place] [address] [address] Jul, [place] [address] [place] [address] June, Bipolar disorder, unspecified 296.80 ; A nxiety state, unspecified 300.00 ; Cannabis abuse 305.20 and Alcohol dependence 303.90 [facility] [address] [id number] [place] [address] May, [facility] [address] [place] [id number] [place] [address] May, [facility] [address] [address] Apr, [facility] [address] [address] Apr, [facility] [address] [address] Apr, [facility] [address] [address] Apr, [facility] [address] [address] Apr, [facility] [id number] [place] [address] Apr, [facility] [address] [address] Apr, [facility] [address] [place] [id number] [place] [address] Apr, [facility] [address] [address] Apr, [facility] [id number] [place] [address] Apr, [facility] [address] [address] Apr, [facility] [address] [place] [id number] [place] [address] Mar, [facility] [address] [address] Mar, [facility] [address] [id number] [place] [address] Mar, [facility] [address] [id number] [place] [address] Mar, [facility] [address] [id number] [place] [address] Feb, [facility] [address] [id number] [place] [address] Feb, [facility] [address] [id number] [place] [address] Feb, [facility] [address] [id number] [place] [address] Feb, [facility] [address] [id number] [place] [address] Feb, [facility] [id number] [place] [address] Feb, [facility] [address] [id number] [place] [address] Feb, [facility] [address] [id number] [place] [address] Feb, [facility] [address] [id number] [place] [address] Feb, [facility] [address] [id number] [place] [address] Jan, [facility] [address] [id number] [place] [address] Jan, [facility] [address] [id number] [place] [address] Nov, [facility] [address] [id number] [place] [address] Nov, [facility] [address] [id number] [place] [address] Nov, [facility] [address] [id number] [place] [address] Nov, [facility] [address] [id number] [facility] [place] [address] 16 Oct, 2013 [facility] [address] [facility] [id number] [facility] [place] [address] 16 Oct, 2013 [facility] [address] [id number] [facility] [place] [address] 16 Oct, 2013 [facility] [address] [id number] [facility] [place] [address] 16 Oct, 2013 [facility] [address] [facility] [id number] [facility] [place] [address] Oct, 2013 [facility] [address] [id number] [place] [address] Oct, 2013 [facility] [address] [id number] [place] [address] Oct, 2013 [facility] [address] [id number] [place] [address] Oct, 2013 [facility] [address] [id number] [place] [address] Sep, [facility] [address] [id number] [place] [address] Sep, [facility] [address] [id number] [place] [address] Sep, [facility] [address] [id number] [place] [address] Sep, [facility] [address] [id number] [place] [address] Sep, [facility] [address] [id number] [place] [address] Sep, [facility] [address] [id number] [place] [address] Sep, [facility] [address] [id number] [place] [address] Sep, [facility] [address] [id number] [facility] [place] [address] Sep, [facility] [address] [id number] [facility] [address] Sep, [facility] [address] [facility] [id number] [place] [address] Sep, [facility] [address] [id number] [place] [address] Sep, [facility] [address] [facility] [id number] [place] [address] Sep, [facility] [address] [facility] [id number] [place] [address] Sep, [facility] [address] [id number] [place] [address] Aug, [facility] [address] [id number] [place] [address] Aug, [facility] [address] [id number] [place] [address] Aug, [facility] [address] [id number] [place] [address] Aug, [facility] [address] [id number] [place] [address] Jul, [facility] [address] [id number] [place] [address] Jul, [facility] [address] [id number] [place] [address] May, [facility] [address] [facility] [id number] [place] [address] May, [facility] [address] [id number] [place] [address] May, [facility] [address] [id number] [place] [address] May, [facility] [address] [id number] [place] [address] May, [facility] [address] [facility] [id number] [place] [address] 17 May, 2013 [facility] [address] [id number] [place] [address] 16 May, 2013 [facility] [address] [id number] [place] [address] 16 May, 2013 [facility] [address] [id number] [place] [address] 15 May, 2013 [facility] [address] [facility] [id number] [place] [address] 15 May, 2013 [facility] [address] [id number] [place] [address] 15 May, 2013 [facility] [address] [id number] [place] [address] 15 May, 2013 [facility] [address] [id number] [place] [address] 08 May, 2013 [facility] [address] [id number] [place] [address] 08 May, 2013 [facility] [address] [id number] [place] [address] 11 Apr, 2013 [facility] [address] [id number] [place] [address] Apr, [facility] [address] [id number] [place] [address] Apr, [facility] [address] [id number] [place] [address] Apr, [facility] [address] [id number] [place] [address] 16 Feb, 2013 [facility] [address] [id number] [place] [address] 16 Feb, 2013 [facility] [address] [id number] [place] [address] Jan, [facility] [address] [id number] [place] [address] Jan, 2012 [facility] [address] [id number] [place] [address] Jan, [facility] [address] [id number] [place] [address] Jan, [facility] [address] [id number] [place] [address] Jan, [facility] [address] [id number] [place] [address] Jan, [facility] [address] [id number] [place] [address] Jan, [facility] [address] [id number] [place] [address] Jan, [facility] [address] [id number] [place] [address] Dec, [facility] [address] [id number] [place] [address] Dec, [facility] [address] [id number] [place] [address] Dec, [facility] [id number] [place] [address] Dec, [facility] [address] [id number] [place] [address] Dec, [facility] [address] [id number] [place] [address] Dec, [facility] [address] [id number] [place] [address] 07 Dec, 2012 [facility] [address] [id number] [place] [address] Dec, [facility] [address] [id number] [place] [address] 07 Dec, 2012 [facility] [address] [id number] [place] [address] Nov, [facility] [address] [id number] [place] [address] 31 Nov, 2012 [facility] [address] [facility] [id number] [place] [address] 29 Nov, 2012 [facility] [address] [id number] [place] [address] 29 Nov, 2012 [facility] [address] [id number] [place] [address] Nov, 2012 [facility] [address] [id number] [place] [address] Nov, 2012 [facility] [address] [id number] [place] [address] Nov, 2012 [facility] [address] [id number] [place] [address] 18 Nov, 2012 [facility] [address] [id number] [place] [address] 16 Nov, 2012 [facility] [address] [id number] [place] [address] 16 Nov, 2012 [facility] [address] [id number] [place] [address] Nov, 2012 [facility] [address] [id number] [place] [address] 09 Nov, 2012 [facility] [address] [id number] [place] [address] Nov, 2012 [facility] [address] [id number] [place] [address] 30 Oct, 2012 [facility] [address] [facility] [id number] [place] [address] 25 Sep, 2012 [facility] [address] [id number] [place] [address] 17 Sep, 2012 [facility] [address] [id number] [place] [address] 13 Sep, 2012 [facility] [address] [id number] [place] [address] 10 Oct, 2012 [facility] [address] [facility] [id number] [place] [address] 10 Oct, 2012 [facility] [address] [facility] [id number] [place] [address] 10 Oct, 2012 [facility] [address] [id number] [place] [address] 16 Sep, 2012 [facility] [address] [id number] [place] [address] 15 Sep, 2012 [facility] [address] [facility] [id number] [facility] [place] [address] Sep, [facility] [address] [id number] [place] [address] 29 Aug, 2012 [facility] [address] [id number] [place] [address] Aug, [facility] [address] [id number] [place] [address] 17 Aug, 2012 [facility] [address] [id number] [place] [address] 16 Aug, 2012 [facility] [address] [id number] [place] [address] Aug, [facility] [address] [id number] [place] [address] Aug, [facility] [address] [id number] [place] [address] Aug, [facility] [address] [id number] [place] [address] Jul, [facility] [address] [facility] [id number] [place] [address] Jul, [facility] [address] [id number] [place] [address] 14 Jul, 2012 [facility] [address] [id number] [place] [address] 13 Jul, 2012 [facility] [address] [id number] [place] [address] Jul, [facility] [address] [id number] [facility] [place] [address] Jul, [facility] [address] [id number] [facility] [place] [address] Jul, [facility] [address] [id number] [facility] [place] [address] Jul, [facility] [address] [id number] [facility] [place] [address] 10 Jul, 2012 [facility] [address] [id number] [facility] [place] [address] Jul, [facility] [address] [id number] [place] [address] Jul, [facility] [address] [id number] [place] [address] Jul, [facility] [address] [id number] [place] [address] Jul, [facility] [address] [id number] [place] [address] June, [facility] [address] [id number] [place] [address] June, [facility] [address] [id number] [place] [address] June, [facility] [address] [id number] [place] [address] June, [facility] [address] [id number] [place] [address] June, [facility] [address] [id number] [place] [address] June, [facility] [address] [id number] [place] [address] June, [facility] [address] [id number] [place] [address] June, [facility] [address] [id number] [place] [address] June, [facility] [address] [facility] [id number] [place] [address] May, [facility] [address] [id number] [place] [address] May, [facility] [address] [id number] [place] [address] May, [facility] [address] [id number] [place] [address] May, [facility] [address] [id number] [place] [address] May, [facility] [address] [id number] [place] [address] May, [facility] [address] [id number] [place] [address] May, [facility] [address] [id number] [place] [address] May, [facility] [address] [id number] [place] [address] May, [facility] [address] [id number] [place] [address] Apr, [facility] [address] [id number] [place] [address] Apr, [facility] [address] [id number] [place] [address] Apr, [facility] [address] [facility] [id number] [place] [address] Apr, [facility] [address] [facility] [id number] [place] [id number] Mar, [facility] [address] [id number] [place] [address] Mar, [facility] [address] [id number] [place] [address] Feb, [facility] [address] [id number] [place] [address] Feb, [facility] [address] [id number] [place] [address] 14 Feb, 2012 [facility] [address] [id number] [place] [address] 10 Feb, 2012 [facility] [address] [id number] [place] [address] Feb, [facility] [address] [id number] [place] [address] Feb, [facility] [address] [id number] [place] [address] Feb, [facility] [address] [id number] [place] [address] Dec, [facility] [id number] [place] [address] Dec, [facility] [address] [id number] [place] [address] Dec, [facility] [address] [id number] [place] [address] Dec, [facility] [address] [id number] [place] [address] Dec, [facility] [address] [id number] [place] [address] Dec, [facility] [address] [id number] [place] [address] Dec, [facility] [address] [id number] [place] [address] Dec, [facility] [address] [id number] [place] [address] Nov, [facility] [address] [id number] [place] [address] Nov, [facility] [address] [id number] [place] [address] Nov, [facility] [address] [facility] [id number] [place] [address] Nov, IMMUNIZATIONS No Known Immunizations SOCIAL HISTORY [...] Surgical History vasectomy-09/01/[address] Flores at [facility] Surgical History Stent placed in groin on right side 2014 Surgical History Blood clot removed from right knee 2014 Surgical History Balloon angioplasty [facility]- Dr. Rebolledo 03/10 Surgical History right wrist 10/08/18 Hospitalization History Hospitalization for surgery only
--- OUTSIDE RECORDS SUMMARY | 2019-05-27 20:06 | XMS REPORT ---
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 Name Role Phone DIYA Wills Unavailable PROBLEMS Type Condition ICD9-CM Code EUR51-BN Code Onset Dates Condition S tatus SNOMED Code Problem 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 Active 301 186008 Problem Bipolar disorder F31.9 Active 137 13193 Problem Peripheral arterial disease I73.9 Ac tive 739915491 Problem Hyperlipidemia E78.5 Active 18578 004 Problem History of [place] (myocardial infarction) I25.2 Active 463691172 Problem Claudication I73.9 Active 9383897 00 Problem Bipolar disorder, current ep isode depressed, severe, without psychotic features F31.4 Active 834341076 Problem Essential hypertension I10 Active 97689218 Problem Other chronic pain G89.29 Active 8 1644339 Problem Schizoaffective disorder F25.9 Activ e 43936936 Problem Tobacco use Z72.0 Active 12492661 0 Problem Bipolar affective disorder, currently depressed, mild F31.31 Active 073313182 Problem Bipolar disorder, in partial remission, most rec ent episode depressed F31.75 Active 37143241 Problem Intrinsic eczema L20.84 Active 240 35948 ALLERGIES No Information ENCOUNTERS Encounter Location Date Diagnosis [facility] [id number] [place] [address] Apr, [facility] [address] [id number] [place] [address] Feb, [facility] [id number] [place] [address] Feb, [facility] [address] [id number] [place] [address] Feb, [facility] [address] [id number] [place] [address] Feb, [facility] [address] [address] Feb, Right wrist pain M25.531 [facility] [address] [address] Feb, Low back pain M54.5 [facility] [address] [address] Jan, Low back pain M54.5 [facility] [address] [address] Jan, Low back pain M54.5 [facility] [address] [address] Jan, Low back pain M54.5 [facility] [address] [address] Jan, [place] [address] [address] Jan, Low back pain M54.5 [place] [address] [address] Jan, Bipolar affective disorder, currently de pressed, mild F31.31 [place] [address] [address] Jan, Bipolar disorder, in partial remission, most recent episode depressed F31.75 ; Hyperlipidemia E78.5 and Essential hypertension I10 [place] [address] [address] Jan, [facility] [address] [address] Jan, Low back pain M54.5 [facility] [address] [address] Dec, Bipolar disorder, current episode depres sed, severe, without psychotic features F31.4 [place] [address] [address] Dec, Chest pain, non-cardiac R07.89 ; Hyperli pidemia E78.5 ; Muscle spasm of back M62.830 ; Low back pain M54.5 ; Other chronic pain G89.29 ; Pain in thoracic spine M54.6 ; Essential hypertension I10 and Peripheral arterial disease I73.9 [place] [address] [address] Dec, [place] [address] [address] Dec, [place] [address] [address] Nov, Hyperlipidemia E78.5 and Essential hyper tension I10 [place] [address] [address] Nov, [place] [address] [address] Nov, Hyperlipidemia E78.5 ; Essential hyperte nsion I10 ; Peripheral arterial disease I73.9 ; Tobacco use Z72.0 ; Bipolar disorder, current episode depressed, severe, without psychotic features F31.4 ; Diarrhea, unspecified type R19.7 ; Encounter for screening for lung cancer Z12.2 and Encounter for immunization Z23 [place] [address] [address] Nov, [place] [address] [address] Nov, [place] [address] [address] Nov, Bipolar disorder, in partial remission, most recent episode depressed F31.75 ; Hyperlipidemia E78.5 and Essential hypertension I10 [place] [address] [address] Nov, [place] [address] [address] Nov, [address] [address] Oct, [facility] [address] [address] Oct, [facility] [address] [address] Oct, [facility] [address] [address] Sep, [facility] [address] [address] Aug, Bipolar disorder, in partial remission, most recent episode depressed F31.75 ; Hyperlipidemia E78.5 and Essential hypertension I10 [facility] [address] [address] Jul, [facility] [address] [address] June, Strain of left hamstring muscle, subsequ ent encounter S76.312D [facility] [address] [address] June, Bipolar disorder, in partial remission, most recent episode depressed F31.75 ; Hyperlipidemia E78.5 and Essential hypertension I10 [facility] [address] [address] May, Right wrist pain M25.531 [facility] [address] [address] May, Right wrist pain M25.531 [facility] [address] [facility] [id number] [place] [address] May, Sebaceous cyst of right axil la L72.3 [facility] [address] [address] Apr, [facility] [address] [address] Apr, Peripheral arterial disease I73.9 [facility] [address] [address] 14 Apr, 2018 Peripheral arterial disease I73.9 [facility] [address] [address] Apr, Bipolar disorder, in partial remission, most recent episode depressed F31.75 ; Hyperlipidemia E78.5 and Essential hypertension I10 [facility] [address] [address] Mar, [facility] [address] [address] Mar, [facility] [address] [address] Mar, [facility] [address] [address] Feb, Bipolar disorder, in partial remission, most recent episode depressed F31.75 ; Hyperlipidemia E78.5 and Essential hypertension I10 [facility] [address] [address] Dec, Bipolar disorder, in partial remission, most recent episode depressed F31.75 ; Hyperlipidemia E78.5 and Essential hypertension I10 [facility] [address] [address] Nov, [facility] [address] [address] Nov, [facility] [address] [address] Nov, Bipolar disorder, in partial remission, most recent episode depressed F31.75 ; Hyperlipidemia E78.5 and Essential hypertension I10 [facility] [address] [address] Nov, 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 [facility] [address] [address] Oct, Essential hypertension I10 and Hyperlipi demia E78.5 [facility] [address] [address] Sep, [facility] [address] [address] Sep, [facility] [address] [address] Sep, Skin lesion of foot L98.9 [facility] [address] [address] Aug, Bipolar disorder, in partial remission, most recent episode depressed F31.75 [facility] [address] [address] Jul, Bipolar disorder, in partial remission, most recent episode depressed F31.75 [place] [address] [address] Jul, Peripheral arterial disease I73.9 [place] [address] [address] Apr, Bipolar disorder, in partial remission, most recent episode depressed F31.75 [place] [address] [address] Apr, Peripheral arterial disease I73.9 [place] [address] [address] Apr, Peripheral arterial disease I73.9 ; Esse ntial hypertension I10 ; Hyperlipidemia E78.5 ; Bipolar disorder, in partial remission, most recent episode depressed F31.75 ; Tobacco use Z72.0 and Intrinsic eczema L20.84 [place] [address] [address] Feb, Bipolar disorder, in partial remission, most recent episode depressed F31.75 [place] [address] [address] Dec, Bipolar disorder, in partial remission, most recent episode depressed F31.75 [place] [address] [address] Nov, [place] [address] [address] Oct, Hyperlipidemia E78.5 ; Essential hyperte nsion I10 ; Peripheral arterial disease I73.9 ; 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 and Encounter for immunization Z23 [place] [address] [address] Oct, 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 [place] [address] [address] Sep, Bipolar affective disorder, currently de pressed, mild F31.31 [place] [address] [address] Sep, Bipolar affective disorder, currently de pressed, mild F31.31 [place] [address] [address] Aug, Bipolar affective disorder, currently de pressed, mild F31.31 [place] [address] [address] Aug, Bipolar affective disorder, currently de pressed, mild F31.31 [place] [address] [address] Aug, Bipolar 1 disorder, mixed, partial remis ernestine F31.77 [place] [address] [address] Jul, Claudication I73.9 [place] [address] [address] Jul, Hyperlipidemia E78.5 [place] [address] [address] June, [place] [address] [address] June, [place] [address] [address] May, Bipolar 1 disorder, mixed, partial remis ernestine F31.77 [place] [address] [address] 03 May, 2016 Bipolar 1 disorder, mixed, partial remis ernestine F31.77 [place] [address] [address] 10 Apr, 2016 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 [place] [address] [address] 28 Mar, 2016 Bipolar 1 disorder, mixed, partial remis ernestine F31.77 and Alcohol dependence, uncomplicated F10.20 [place] [address] [address] Mar, Hyperlipidemia E78.5 [place] [address] [address] Mar, Essential hypertension I10 ; Tobacco use Z72.0 and Claudication I73.[address] [address] Mar, [place] [address] [address] Feb, Bipolar 1 disorder, mixed, partial remis ernestine F31.77 and Alcohol dependence in remission F10.21 [place] [address] [address] Jan, Peripheral arterial disease I73.9 and Bi polar 1 disorder, mixed, partial remission F31.77 [place] [address] [address] Jan, [place] [address] [address] 05 Nov, 2015 [place] [address] [address] 13 Oct, 2015 Bipolar disorder, unspecified F31.9 and Alcohol dependence, uncomplicated F10.20 [place] [address] [address] Sep, Hyperlipidemia E78.5 ; Essential hyperte nsion I10 ; Peripheral arterial disease I73.9 and Tobacco use Z72.0 [place] [address] [address] Sep, Hyperlipidemia E78.5 [place] [address] [address] Aug, Bipolar 1 disorder, mixed, partial remis ernestine F31.77 and Alcohol dependence, uncomplicated F10.20 [place] [address] [address] June, Bipolar 1 disorder, mixed, partial remis ernestine F31.77 [place] [address] [address] May, Hypertension I10 ; Hyperlipidemia E78.5 ; PVD (peripheral vascular disease) I73.9 and Claudication I73.9 [place] [address] [address] Apr, [place] [address] [address] Apr, [place] [address] [address] Mar, [place] [address] [address] Mar, Hyperlipidemia E78.5 [place] [address] [address] Mar, Hyperlipidemia E78.5 and Peripheral summer rial disease I73.9 [place] [address] [address] Feb, Hyperlipidemia E78.5 ; Essential hyperte nsion I10 and Peripheral arterial disease I73.[address] [address] Jan, [address] [address] 14 Jan, 2015 Bipolar disorder, unspecified F31.9 ; An xiety disorder, unspecified F41.9 ; Cannabis abuse, uncomplicated F12.10 and Alcohol dependence, uncomplicated F10.20 [place] [address] [address] Jan, Peripheral arterial disease I73.9 [place] [address] [address] Dec, Bipolar 1 disorder, mixed, partial remis ernestine F31.77 [place] [address] [address] Nov, [place] [address] [address] Nov, Unspecified essential hypertension 401.9 [place] [address] [address] Sep, Bipolar disorder, unspecified 296.80 [place] [address] [address] Aug, Unspecified essential hypertension 401.9 [place] [address] [address] Aug, Bipolar disorder, unspecified 296.80 ; O ther and unspecified alcohol dependence, unspecified drunkenness 303.90 and Nondependent cannabis abuse, unspecified 305.20 [place] [address] [address] Aug, [place] [address] [address] Jul, Physical exam, annual V70.0 [place] [address] [address] Jul, [place] [address] [address] June, Bipolar disorder, unspecified 296.80 ; A nxiety state, unspecified 300.00 ; Cannabis abuse 305.20 and Alcohol dependence 303.90 [place] [address] [address] May, [facility] [address] [id number] [place] [address] May, [facility] [address] [id number] [place] [address] Apr, [facility] [address] [id number] [place] [address] Apr, [facility] [address] [id number] [place] [address] Apr, [facility] [address] [id number] [place] [address] Apr, [facility] [address] [id number] [place] [address] Apr, [facility] [address] [id number] [place] [address] Apr, [facility] [address] [id number] [place] [address] Apr, [facility] [address] [id number] [place] [address] Apr, [facility] [address] [id number] [place] [address] Apr, [facility] [address] [id number] [place] [address] Apr, [facility] [address] [id number] [place] [address] Apr, [facility] [address] [id number] [place] [address] Mar, [facility] [address] [id number] [place] [address] Mar, [facility] [address] [id number] [place] [address] Mar, [facility] [address] [id number] [place] [address] Mar, [facility] [address] [id number] [place] [address] Feb, [facility] [address] [id number] [place] [address] Feb, [facility] [address] [id number] [place] [address] Feb, [facility] [address] [id number] [place] [address] Feb, [facility] [address] [id number] [place] [address] Feb, [facility] [address] [id number] [place] [address] Feb, [facility] [address] [id number] [place] [address] Feb, [facility] [address] [id number] [place] [address] Feb, [facility] [address] [id number] [place] [address] Feb, [facility] [address] [id number] [place] [address] Jan, [facility] [address] [id number] [place] [address] Jan, [facility] [address] [id number] [place] [address] Nov, [facility] [address] [id number] [place] [address] Nov, [facility] [address] [id number] [place] [address] Nov, [facility] [address] [id number] [place] [address] Nov, [facility] [address] [id number] [place] [address] Oct, [facility] [address] [id number] [place] [address] 16 Oct, 2013 [facility] [address] [id number] [place] [address] 16 Oct, 2013 [facility] [address] [id number] [place] [address] Oct, 2013 [facility] [address] [facility] [id number] [place] [address] Oct, 2013 [facility] [address] [id number] [place] [address] Oct, 2013 [facility] [address] [facility] [id number] [place] [address] Oct, 2013 [facility] [address] [id number] [place] [address] Oct, 2013 [facility] [address] [id number] [place] [address] Sep, [facility] [address] [id number] [place] [address] Sep, [facility] [address] [id number] [place] [address] Sep, [facility] [address] [id number] [place] [address] Sep, [facility] [address] [id number] [place] [address] Sep, [facility] [address] [id number] [place] [address] Sep, [facility] [address] [id number] [place] [address] Sep, [facility] [address] [facility] [id number] [place] [address] Sep, [facility] [address] [id number] [place] [address] Sep, [facility] [address] [id number] [place] [address] Sep, [facility] [address] [id number] [place] [address] Sep, [facility] [address] [id number] [place] [address] Sep, [facility] [address] [id number] [place] [address] Sep, [facility] [address] [id number] [place] [address] Sep, [facility] [address] [id number] [place] [address] Aug, [facility] [address] [facility] [id number] [place] [address] Aug, [facility] [address] [id number] [place] [address] Aug, [facility] [address] [id number] [place] [address] Aug, [facility] [address] [id number] [place] [address] Jul, [facility] [address] [id number] [place] [address] Jul, [facility] [address] [id number] [place] [address] May, [facility] [address] [id number] [place] [address] May, [facility] [address] [id number] [place] [address] May, [facility] [address] [id number] [place] [address] May, [facility] [address] [id number] [place] [address] May, [facility] [address] [id number] [place] [address] May, [facility] [address] [id number] [place] [address] 16 May, 2013 [facility] [address] [id number] [place] [address] 16 May, 2013 [facility] [address] [facility] [id number] [place] [address] 15 May, 2013 [facility] [address] [facility] [id number] [place] [address] 15 May, 2013 [facility] [address] [id number] [place] [address] 15 May, 2013 [facility] [address] [id number] [place] [address] 15 May, 2013 [facility] [address] [facility] [id number] [place] [address] 08 May, 2013 [facility] [address] [id number] [place] [address] 08 May, 2013 [facility] [address] [id number] [place] [address] 11 Apr, 2013 [facility] [address] [id number] [place] [address] Apr, [facility] [address] [id number] [place] [address] Apr, [facility] [address] [id number] [place] [address] Apr, [facility] [address] [id number] [place] [address] 16 Feb, 2013 [facility] [address] [id number] [place] [address] Feb, [facility] [address] [id number] [place] [address] Jan, [facility] [address] [id number] [place] [address] Jan, [facility] [address] [id number] [place] [address] Jan, [facility] [address] [id number] [place] [address] Jan, [facility] [address] [id number] [place] [address] 16 Jan, 2012 [facility] [address] [id number] [place] [address] 16 Jan, 2012 [facility] [address] [id number] [place] [address] Jan, 2012 [facility] [address] [id number] [place] [address] Jan, [facility] [address] [id number] [place] [address] Dec, [facility] [address] [id number] [place] [address] Dec, [facility] [address] [id number] [place] [address] Dec, [facility] [address] [id number] [place] [address] Dec, [facility] [address] [id number] [place] [address] Dec, [facility] [address] [id number] [place] [address] Dec, [facility] [address] [id number] [place] [address] Dec, [facility] [address] [id number] [place] [address] Dec, [facility] [address] [id number] [place] [address] Dec, [facility] [address] [id number] [place] [address] Nov, [facility] [id number] [place] [address] Nov, [facility] [address] [id number] [place] [address] Nov, [facility] [address] [id number] [place] [address] Nov, [facility] [address] [id number] [place] [address] Nov, 2012 [facility] [address] [id number] [place] [address] Nov, 2012 [facility] [address] [id number] [place] [address] Nov, 2012 [facility] [address] [id number] [place] [address] Nov, 2012 [facility] [address] [id number] [place] [address] 16 Nov, 2012 [facility] [address] [id number] [place] [address] 16 Nov, 2012 [facility] [address] [id number] [place] [address] 09 Nov, 2012 [facility] [address] [id number] [place] [address] 09 Nov, 2012 [facility] [address] [id number] [place] [address] Nov, 2012 [facility] [address] [id number] [place] [address] 30 Sep, 2012 [facility] [address] [id number] [place] [address] 25 Sep, 2012 [facility] [address] [id number] [place] [address] 17 Sep, 2012 [facility] [address] [id number] [place] [address] 13 Sep, 2012 [facility] [address] [id number] [place] [address] 10 Sep, 2012 [facility] [address] [id number] [place] [address] 10 Sep, 2012 [facility] [address] [id number] [place] [address] 10 Sep, 2012 [facility] [place] [facility] [address] [id number] [place] [address] 16 Sep, 2012 [facility] [place] [facility] [address] [facility] [id number] [place] [address] Sep, [facility] [place] [facility] [address] [facility] [id number] [place] [address] Sep, [facility] [place] [facility] [address] [id number] [place] [address] 29 Aug, 2012 [facility] [place] [facility] [address] [facility] [id number] [place] [address] Aug, [facility] [place] [facility] [address] [facility] [id number] [place] [address] Aug, [facility] [place] [facility] [address] [facility] [id number] [place] [address] 16 Aug, 2012 [facility] [place] [facility] [address] [id number] [place] [address] Aug, [facility] [place] [facility] [address] [id number] [place] [address] Aug, [facility] [place] [facility] [address] [facility] [id number] [place] [address] 05 Aug, 2012 [facility] [place] [facility] [address] [id number] [place] [address] Jul, [facility] [place] [facility] [address] [id number] [place] [address] Jul, [facility] [place] [facility] [address] [id number] [place] [address] 14 Jul, 2012 [facility] [place] [facility] [address] [facility] [id number] [place] [address] Jul, [facility] [place] [facility] [address] [id number] [place] [address] Jul, [facility] [place] [facility] [address] [id number] [place] [address] Jul, [facility] [place] [facility] [address] [id number] [place] [address] Jul, [facility] [place] [facility] [address] [id number] [place] [address] 11 Jul, 2012 [facility] [place] [facility] [address] [id number] [place] [address] Jul, [facility] [place] [facility] [address] [id number] [place] [address] 08 Jul, 2012 [facility] [place] [facility] [address] [id number] [place] [address] 08 Jul, 2012 [facility] [place] [facility] [address] [id number] [place] [address] 07 Jul, 2012 [facility] [place] [facility] [address] [id number] [place] [address] Jul, [facility] [place] [facility] [address] [id number] [place] [address] June, [facility] [place] [facility] [address] [id number] [place] [address] June, [facility] [place] [facility] [address] [id number] [place] [address] June, [facility] [place] [facility] [address] [id number] [place] [address] June, [facility] [place] [facility] [address] [id number] [place] [address] June, [facility] [place] [facility] [address] [id number] [place] [address] June, [facility] [place] [facility] [address] [id number] [place] [address] June, [facility] [place] [facility] [address] [id number] [place] [address] June, [facility] [place] [facility] [address] [id number] [place] [address] June, [facility] [place] [facility] [address] [id number] [place] [address] May, [facility] [place] [facility] [address] [id number] [place] [address] May, [facility] [place] [facility] [address] [facility] [id number] [place] [address] May, [facility] [place] [facility] [address] [id number] [place] [address] May, [facility] [place] [facility] [address] [id number] [place] [address] 15 May, 2012 [facility] [place] [facility] [address] [id number] [place] [address] 08 May, 2012 [facility] [place] [facility] [address] [id number] [place] [address] May, [facility] [place] [facility] [address] [id number] [place] [address] May, [facility] [place] [facility] [address] [id number] [place] [address] May, [facility] [place] [facility] [address] [id number] [place] [address] Apr, [facility] [place] [facility] [address] [id number] [place] [address] Apr, [facility] [place] [facility] [address] [id number] [place] [address] Apr, [facility] [place] [facility] [address] [id number] [place] [address] Apr, [facility] [address] [facility] [id number] [place] [id number] Mar, [facility] [place] [facility] [address] [id number] [place] [address] Mar, [facility] [place] [facility] [address] [id number] [place] [address] Feb, [facility] [place] [facility] [address] [id number] [place] [address] Feb, [facility] [place] [facility] [address] [id number] [place] [address] Feb, [facility] [place] [facility] [address] [id number] [place] [address] Feb, [facility] [id number] [place] [address] Feb, [facility] [id number] [place] [address] Feb, [facility] [id number] [place] [address] Feb, [facility] [id number] [place] [address] Dec, [facility] [id number] [place] [address] Dec, [facility] [id number] [place] [address] Dec, [facility] [id number] [place] [address] Dec, [facility] [id number] [place] [address] Dec, [facility] [id number] [place] [address] Dec, [facility] [id number] [place] [address] Dec, [facility] [id number] [place] [address] Dec, [facility] [id number] [place] [address] Nov, [facility] [id number] [place] [address] Nov, [facility] [id number] [place] [address] Nov, [facility] [id number] [place] [address] Nov, IMMUNIZATIONS No Known Immunizations SOCIAL HISTORY Never Assessed REASON FOR VISIT PLAN OF CARE VITAL SIGNS Height 69 in 2013-07-24 Weight 171.5 lbs 2013-07-24 Temperature 98.4 degrees Fahrenheit 2013-07-24 Heart Rate 72 bpm 2013-07-24 Respiratory Rate 28 2013-07-24 Blood pressure systolic 120 mmHg 2013-07-24 Blood pressure diastolic 84 mmHg 2013-07-24 MEDICATIONS Unknown Medications RESULTS No Results PROCEDURES No Known procedures INSTRUCTIONS MEDICATIONS ADMINISTERED No Known Medications MEDICAL (GENERAL) HISTORY Type Description Date Medical History hypertension Medical History hyperlipidemia Medical History bipolar disorder Medical History cardiovascular disease-heart attack and stroke Medical History Pure hypercholesterolemia Surgical History appendectomy Surgical History vasectomy-09/01/[address] Flores at [facility] Surgical History Stent placed in groin on right side 2014 Surgical History Blood clot removed from right knee 2014 Surgical History Balloon angioplasty [facility]- Dr. Rebolledo 03/10 Surgical History right wrist 10/08/18 Hospitalization History Hospitalization for surgery only
--- OUTSIDE RECORDS SUMMARY | 2019-05-27 20:12 | XMS REPORT | Continuity of Care Document ---
Author Organization Unknown Address Unknown Phone Unavailable Allergies Active Description Code Type Severity Reaction Onset Reported/Identified Relationship to Patient Clinical Status Yes No Known Drug Allergies [id number] Drug Allergy Unknown N/A 02/22/2017 Medications There is no data. 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 12/16/2011 719.41 ricardo nt pain, localized in the shoulder 12/16/2011 796.2 Elev ated Blood Pressure Reading Without Diagnosis Of Hypertension 12/16/2011 296.80 BIP OLAR DISORDER UNSPECIFIED 12/16/2011 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 12/16/2011 719.41 ricardo nt pain, localized in the shoulder 12/16/2011 796.2 Elev ated Blood Pressure Reading Without Diagnosis Of Hypertension 12/16/2011 296.80 BIP OLAR DISORDER UNSPECIFIED 12/16/2011 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 12/16/2011 719.41 ricardo nt pain, localized in the shoulder 12/16/2011 796.2 Elev ated Blood Pressure Reading Without Diagnosis Of Hypertension 12/16/2011 TRAVIS MANCERA DO 296.80 BIPOLAR DISORDER UNSPECIFIED 12/16/2011 TRAVIS MANCERA DO 305.1 TOBACCO ABUSE 12/16/2011 TRAVIS MANCERA DO 719.41 joint pain, localized in the shoulder 12/16/2011 TRAVIS MANCERA DO 796.2 Elevated Blood Pressure Reading Without Diagnosis Of Hypertension 12/16/2011 296.80 BIP OLAR DISORDER UNSPECIFIED 12/16/2011 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 12/16/2011 719.41 ricardo nt pain, localized in the shoulder 12/16/2011 796.2 Elev ated Blood Pressure Reading Without Diagnosis Of Hypertension 12/16/2011 296.80 BIP OLAR DISORDER UNSPECIFIED 12/16/2011 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 12/16/2011 719.41 ricardo nt pain, localized in the shoulder 12/16/2011 796.2 Elev ated Blood Pressure Reading Without Diagnosis Of Hypertension 12/16/2011 296.80 BIP OLAR DISORDER UNSPECIFIED 12/16/2011 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 12/16/2011 719.41 ricardo nt pain, localized in the shoulder 12/16/2011 796.2 Elev ated Blood Pressure Reading Without Diagnosis Of Hypertension 12/16/2011 296.80 BIP OLAR DISORDER UNSPECIFIED 12/16/2011 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 12/16/2011 719.41 ricardo nt pain, localized in the shoulder 12/16/2011 796.2 Elev ated Blood Pressure Reading Without Diagnosis Of Hypertension 12/16/2011 MEHUL WILLINGHAM MD, KALIN A 296.80 BIPOLAR DISORDER UNSPECIFIED 12/16/2011 MEHUL WILLINGHAM MD, KALIN A 305.1 TOBACCO ABUSE 12/16/2011 MEHUL WILLINGHAM MD, KALIN A 719.41 joint pain, localized in the shoulder 12/16/2011 MEHUL WILLINGHAM MD, KALIN A 796.2 Elevated Blood Pressure Reading Without Diagnosis Of H ypertension 12/16/2011 296.80 BIP OLAR DISORDER UNSPECIFIED 12/16/2011 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 12/16/2011 719.41 ricardo nt pain, localized in the shoulder 12/16/2011 796.2 Elev ated Blood Pressure Reading Without Diagnosis Of Hypertension 12/16/2011 296.80 BIP OLAR DISORDER UNSPECIFIED 12/16/2011 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 12/16/2011 719.41 ricardo nt pain, localized in the shoulder 12/16/2011 796.2 Elev ated Blood Pressure Reading Without Diagnosis Of Hypertension 12/16/2011 296.80 BIP OLAR DISORDER UNSPECIFIED 12/16/2011 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 12/16/2011 719.41 ricardo nt pain, localized in the shoulder 12/16/2011 796.2 Elev ated Blood Pressure Reading Without Diagnosis Of Hypertension 12/16/2011 296.80 BIP OLAR DISORDER UNSPECIFIED 12/16/2011 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 12/16/2011 719.41 ricardo nt pain, localized in the shoulder 12/16/2011 796.2 Elev ated Blood Pressure Reading Without Diagnosis Of Hypertension 12/16/2011 296.80 BIP OLAR DISORDER UNSPECIFIED 12/16/2011 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 12/16/2011 719.41 RICARDO NT PAIN, LOCALIZED IN THE SHOULDER 12/16/2011 796.2 Elev ated Blood Pressure Reading Without Diagnosis Of Hypertension 12/16/2011 296.80 BIP OLAR DISORDER UNSPECIFIED 12/16/2011 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 12/16/2011 719.41 RICARDO NT PAIN, LOCALIZED IN THE SHOULDER 12/16/2011 796.2 Elev ated Blood Pressure Reading Without Diagnosis Of Hypertension 12/16/2011 296.80 BIP OLAR DISORDER UNSPECIFIED 12/16/2011 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 12/16/2011 719.41 RICARDO NT PAIN, LOCALIZED IN THE SHOULDER 12/16/2011 796.2 Elev ated Blood Pressure Reading Without Diagnosis Of Hypertension 12/16/2011 296.80 BIP OLAR DISORDER UNSPECIFIED 12/16/2011 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 12/16/2011 719.41 RICARDO NT PAIN, LOCALIZED IN THE SHOULDER 12/16/2011 796.2 Elev ated Blood Pressure Reading Without Diagnosis Of Hypertension 12/16/2011 296.80 BIP OLAR DISORDER UNSPECIFIED 12/16/2011 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 12/16/2011 719.41 RICARDO NT PAIN, LOCALIZED IN THE SHOULDER 12/16/2011 796.2 Elev ated Blood Pressure Reading Without Diagnosis Of Hypertension 12/16/2011 296.80 BIP OLAR DISORDER UNSPECIFIED 12/16/2011 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 12/16/2011 719.41 RICARDO NT PAIN, LOCALIZED IN THE SHOULDER 12/16/2011 796.2 Elev ated Blood Pressure Reading Without Diagnosis Of Hypertension 12/16/2011 296.80 BIP OLAR DISORDER UNSPECIFIED 12/16/2011 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 12/16/2011 719.41 RICARDO NT PAIN, LOCALIZED IN THE SHOULDER 12/16/2011 796.2 Elev ated Blood Pressure Reading Without Diagnosis Of Hypertension 12/16/2011 POORNIMASALDIVAR IBRAHIMA F 296 .80 BIPOLAR DISORDER UNSPECIFIED 12/16/2011 WERDER , IBRAHIMA F 305 .1 TOBACCO ABUSE 12/16/2011 WERDER DO, IBRAHIMA F 719 .41 JOINT PAIN, LOCALIZED IN THE SHOULDER 12/16/2011 WERKARENA ARELLANO DOEN F 796 .2 Elevated Blood Pressure Reading Without Diagnosis Of Hypertension 12/16/2011 JERRY PITT MD N 296 .80 BIPOLAR DISORDER UNSPECIFIED 12/16/2011 JERRY PITT MD N 305 .1 TOBACCO ABUSE 12/16/2011 JERRY PITT MD N 719 .41 JOINT PAIN, LOCALIZED IN THE SHOULDER 12/16/2011 JERRY PITT MD N 796 .2 Elevated Blood Pressure Reading Without Diagnosis Of [...] Elevated Blood Pressure Reading Without Diagnosis Of H ypertension 12/16/2011 MANCERA DOHOLLYA K 296.80 BIPOLAR DISORDER UNSPECIFIED 12/16/2011 MANCERA DO TRAVIS K 305.1 TOBACCO ABUSE 12/16/2011 MANCERA DO TRAVIS K 719.41 JOINT PAIN, LOCALIZED IN THE SHOULDER 12/16/2011 MANCERA DO TRAVIS K 796.2 Elevated Blood Pressure Reading Without Diagnosis Of Hypertension 12/16/2011 JERRY PITT MD 296 .80 BIPOLAR DISORDER UNSPECIFIED 12/16/2011 JERRY PITT MD 305 .1 TOBACCO ABUSE 12/16/2011 JERRY PITT MD 719 .41 JOINT PAIN, LOCALIZED IN THE SHOULDER 12/16/2011 JERRY PITT MD 796 .2 Elevated Blood Pressure Reading Without Diagnosis Of Hypertension 12/16/2011 SANTY VALLEJO APRN 296.80 BIPOLAR DISORDER UNSPECIFIED 12/16/2011 SANTY VALLEJO APRN 305.1 TOBACCO ABUSE 12/16/2011 SANTY VALLEJO APRN 719.41 JOINT PAIN, LOCALIZED IN THE SHOULDER 12/16/2011 SANTY VALLEJO APRN 796.2 Elevated Blood Pressure Reading Without Diagnosis Of H ypertension 12/16/2011 JERRY PITT MD 296 .80 BIPOLAR DISORDER UNSPECIFIED 12/16/2011 JERRY PITT MD N 305 .1 TOBACCO ABUSE 12/16/2011 JERRY PITT MD 719 .41 JOINT PAIN, LOCALIZED IN THE SHOULDER 12/16/2011 JERRY PITT MD N 796 .2 Elevated Blood Pressure Reading Without Diagnosis Of Hypertension 12/16/2011 SANTY VALLEJO APRN 296.80 BIPOLAR DISORDER UNSPECIFIED 12/16/2011 SANTY VALLEJO APRN 305.1 TOBACCO ABUSE 12/16/2011 SANTY VALLEJO APRN 719.41 JOINT PAIN, LOCALIZED IN THE SHOULDER 12/16/2011 SANTY VALLEJO APRN 796.2 Elevated Blood Pressure Reading Without Diagnosis Of H ypertension 12/16/2011 JERRY PITT MD 296 .80 BIPOLAR DISORDER UNSPECIFIED 12/16/2011 JERRY PITT MD N 305 .1 TOBACCO ABUSE 12/16/2011 JERRY PITT MD 719 .41 JOINT PAIN, LOCALIZED IN THE SHOULDER 12/16/2011 JERRY PITT MD 796 .2 Elevated Blood Pressure Reading Without Diagnosis Of Hypertension 12/16/2011 JERRY PITT MD 296 .80 BIPOLAR DISORDER UNSPECIFIED 12/16/2011 JERRY PITT MD 305 .1 TOBACCO ABUSE 12/16/2011 JERRY PITT MD 719 .41 JOINT PAIN, LOCALIZED IN THE SHOULDER 12/16/2011 JERRY PITT MD 796 .2 Elevated Blood Pressure Reading Without Diagnosis Of Hypertension 12/16/2011 BEKAH MEDICAL POLICY SPECIALIST, DIYA 296 .80 BIPOLAR DISORDER UNSPECIFIED 12/16/2011 BEKAH MEDICAL POLICY SPECIALIST, DIYA 305 .1 TOBACCO ABUSE 12/16/2011 BEKAH MEDICAL POLICY SPECIALIST, DIYA 719 .41 JOINT PAIN, LOCALIZED IN THE SHOULDER 12/16/2011 BEKAH MEDICAL POLICY SPECIALIST, DIYA 796 .2 Elevated Blood Pressure Reading Without Diagnosis Of Hypertension 12/16/2011 JERRY PITT MD N 296 .80 BIPOLAR DISORDER UNSPECIFIED 12/16/2011 JERRY PITT MD N 305 .1 TOBACCO ABUSE 12/16/2011 JERRY PITT MD N 719 .41 JOINT PAIN, LOCALIZED IN THE SHOULDER 12/16/2011 JERRY PITT MD N 796 .2 Elevated Blood Pressure Reading Without Diagnosis Of Hypertension 12/16/2011 BEKAH MEDICAL POLICY SPECIALIST, DIYA 296 .80 BIPOLAR DISORDER UNSPECIFIED 12/16/2011 BEKAH MEDICAL POLICY SPECIALIST, DIYA 305 .1 TOBACCO ABUSE 12/16/2011 BEKAH MEDICAL POLICY SPECIALIST, DIYA 719 .41 JOINT PAIN, LOCALIZED IN THE SHOULDER 12/16/2011 BEKAH MEDICAL POLICY SPECIALIST, DIYA 796 .2 Elevated Blood Pressure Reading Without Diagnosis Of Hypertension 12/16/2011 MANCERA DO, TRAVIS K 296.80 BIPOLAR DISORDER UNSPECIFIED 12/16/2011 HOLLY MANCERA DOA K 305.1 TOBACCO ABUSE 12/16/2011 HOLLY MANCERA DOA K 719.41 JOINT PAIN, LOCALIZED IN THE SHOULDER 12/16/2011 HOLLY MANCERA DOA K 796.2 Elevated Blood Pressure Reading Without Diagnosis Of Hypertension 12/16/2011 ERIN DIEGO, BELINDA E 296. 80 BIPOLAR DISORDER UNSPECIFIED 12/16/2011 MARYAM KHAN RNISTA E 305. 1 TOBACCO ABUSE 12/16/2011 ERIN RN, BELINDA E 719. 41 JOINT PAIN, LOCALIZED IN THE SHOULDER 12/16/2011 ERIN RN, BELINDA E 796. 2 Elevated Blood Pressure Reading Without Diagnosis Of Hypertension 12/16/2011 ERIN RN, BELINDA E 296. 80 BIPOLAR DISORDER UNSPECIFIED 12/16/2011 ERIN RNMARYAMBELINDA E 305. 1 TOBACCO ABUSE 12/16/2011 ERIN RN, BELINDA E 719. 41 JOINT PAIN, LOCALIZED IN THE SHOULDER 12/16/2011 ERIN RN, BELINDA E 796. 2 Elevated Blood Pressure Reading Without Diagnosis Of Hypertension 12/16/2011 ERIN RN, BELINDA E 296. 80 BIPOLAR DISORDER UNSPECIFIED 12/16/2011 ERIN RN, BELINDA E 305. 1 TOBACCO ABUSE 12/16/2011 ERIN RN, BELINDA E 719. 41 JOINT PAIN, LOCALIZED IN THE SHOULDER 12/16/2011 ERIN DIEGO, BELINDA E 796. 2 Elevated Blood Pressure Reading Without Diagnosis Of Hypertension 12/16/2011 JERRY PITT MD N 296 .80 BIPOLAR DISORDER UNSPECIFIED 12/16/2011 JERRY PITT MD 305 .1 TOBACCO ABUSE 12/16/2011 JERRY PITT MD N 719 .41 JOINT PAIN, LOCALIZED IN THE SHOULDER 12/16/2011 JERRY PITT MD N 796 .2 Elevated Blood Pressure Reading Without Diagnosis Of Hypertension 12/16/2011 YOLANDA MICHELLE APRN R 296.80 BIPOLAR DISORDER UNSPECIFIED 12/16/2011 YOLANDA MICHELLE APRN R 305.1 TOBACCO ABUSE 12/16/2011 YOLANDA MICHELLE APRN R 719.41 JOINT PAIN, LOCALIZED IN THE SHOULDER 12/16/2011 HIMANSHU MICHELLE APRNINA R 796.2 Elevated Blood Pressure Reading Without Diagnosis Of H ypertension 12/16/2011 JERRY PITT MD N 296 .80 BIPOLAR DISORDER UNSPECIFIED 12/16/2011 JERRY PITT MD N 305 .1 TOBACCO ABUSE 12/16/2011 JERRY PITT MD N 719 .41 JOINT PAIN, LOCALIZED IN THE SHOULDER 12/16/2011 JERRY PITT MD N 796 .2 Elevated Blood Pressure Reading Without Diagnosis Of Hypertension 12/16/2011 MIGUEL ANGEL MEDICAL POLICY SPECIALIST, YOLANDA R 296.80 BIPOLAR DISORDER UNSPECIFIED 12/16/2011 MIGUEL ANGEL MEDICAL POLICY SPECIALIST, YOLANAD R 305.1 TOBACCO ABUSE 12/16/2011 MIGUEL ANGEL MEDICAL POLICY SPECIALIST, YOLANDA R 719.41 JOINT PAIN, LOCALIZED IN THE SHOULDER 12/16/2011 MIGUEL ANGEL MEDICAL POLICY SPECIALIST, YOLANDA R 796.2 Elevated Blood Pressure Reading Without Diagnosis Of H ypertension 12/16/2011 LELAND BROWN MD 296.80 BIPOLAR DISORDER UNSPECIFIED 12/16/2011 LELAND BROWN MD 305.1 TOBACCO ABUSE 12/16/2011 LELAND BROWN MD 719.41 JOINT PAIN, LOCALIZED IN THE SHOULDER 12/16/2011 LELAND BROWN MD 796.2 Elevated Blood Pressure Reading Without Diagnosis Of Hypertension 12/16/2011 TRAVIS MANCERA DO 296.80 BIPOLAR DISORDER UNSPECIFIED 12/16/2011 TRAVIS MANCERA DO 305.1 TOBACCO ABUSE 12/16/2011 TRAVIS MANCERA DO K 719.41 JOINT PAIN, LOCALIZED IN THE SHOULDER 12/16/2011 TRAVIS MANCERA DO 796.2 Elevated Blood Pressure Reading Without Diagnosis Of Hypertension 12/30/2011 TRAVIS MANCERA DO 401.1 HYPERTENSION, BENIGN ESSENTIAL 12/30/2011 401.1 HYPE RTENSION, BENIGN ESSENTIAL 12/30/2011 401.1 HYPE RTENSION, BENIGN ESSENTIAL 12/30/2011 401.1 HYPE RTENSION, BENIGN ESSENTIAL 12/30/2011 TRAVIS MANCERA DO 401.1 HYPERTENSION, BENIGN ESSENTIAL 12/30/2011 401.1 HYPE RTENSION, BENIGN ESSENTIAL 12/30/2011 401.1 HYPE RTENSION, BENIGN ESSENTIAL 12/30/2011 401.1 HYPE RTENSION, BENIGN ESSENTIAL 12/30/2011 401.1 HYPE RTENSION, BENIGN ESSENTIAL 12/30/2011 MEHUL WILLINGHAM MD, KALIN Cornejo 401.1 HYPERTENSION, BENIGN ESSENTIAL 12/30/2011 401.1 HYPE RTENSION, BENIGN ESSENTIAL 12/30/2011 401.1 HYPE RTENSION, BENIGN ESSENTIAL 12/30/2011 401.1 HYPE RTENSION, BENIGN ESSENTIAL 12/30/2011 401.1 HYPE RTENSION, BENIGN ESSENTIAL 12/30/2011 401.1 HYPE RTENSION, BENIGN ESSENTIAL 12/30/2011 401.1 HYPE RTENSION, BENIGN ESSENTIAL 12/30/2011 401.1 HYPE RTENSION, BENIGN ESSENTIAL 12/30/2011 401.1 HYPE RTENSION, BENIGN ESSENTIAL 12/30/2011 401.1 HYPE RTENSION, BENIGN ESSENTIAL 12/30/2011 401.1 HYPE RTENSION, BENIGN ESSENTIAL 12/30/2011 401.1 HYPE RTENSION, BENIGN ESSENTIAL 12/30/2011 IBRAHIMA WATTS DO 401 .1 HYPERTENSION, BENIGN ESSENTIAL 12/30/2011 YOANDY GUTIERREZ, JERRY Aldana 401 .1 HYPERTENSION, BENIGN ESSENTIAL 12/30/2011 MANCERA DO TRAVIS K 401.1 HYPERTENSION, BENIGN ESSENTIAL 12/30/2011 MANCERA DO TRAVIS K 401.1 HYPERTENSION, BENIGN ESSENTIAL 12/30/2011 MANCERA DO TRAVIS K 401.1 HYPERTENSION, BENIGN ESSENTIAL 12/30/2011 MANCERA DO TRAVIS K 401.1 HYPERTENSION, BENIGN ESSENTIAL 12/30/2011 SANTY VALLEJO APRN 401.1 HYPERTENSION, BENIGN ESSENTIAL 12/30/2011 CALDERON MCGILL TRAVIS K 401.1 HYPERTENSION, BENIGN ESSENTIAL 12/30/2011 JERRY PITT MD 401 .1 HYPERTENSION, BENIGN ESSENTIAL 12/30/2011 SANTY VALLEJO APRN 401.1 HYPERTENSION, BENIGN ESSENTIAL 12/30/2011 JERRY PITT MD 401 .1 HYPERTENSION, BENIGN ESSENTIAL 12/30/2011 SANTY VALLEJO APRN 401.1 HYPERTENSION, BENIGN ESSENTIAL 12/30/2011 JERRY PITT MD 401 .1 HYPERTENSION, BENIGN ESSENTIAL 12/30/2011 JERRY PITT MD 401 .1 HYPERTENSION, BENIGN ESSENTIAL 12/30/2011 DIYA GODFREY APRN 401 .1 HYPERTENSION, BENIGN ESSENTIAL 12/30/2011 JERRY PITT MD 401 .1 HYPERTENSION, BENIGN ESSENTIAL 12/30/2011 DIYA GODFREY APRN 401 .1 HYPERTENSION, BENIGN ESSENTIAL 12/30/2011 CALDERON MCGILL TRAVIS K 401.1 HYPERTENSION, BENIGN ESSENTIAL 12/30/2011 ERIN DIEGO, BELINDA E 401. 1 HYPERTENSION, BENIGN ESSENTIAL 12/30/2011 ERIN DIEGO, BELINDA E 401. 1 HYPERTENSION, BENIGN ESSENTIAL 12/30/2011 ERIN DIEGO, BELINDA E 401. 1 HYPERTENSION, BENIGN ESSENTIAL 12/30/2011 JERRY PITT MD 401 .1 HYPERTENSION, BENIGN ESSENTIAL 12/30/2011 MIGUEL ANGEL PANDYA, YOLANDA R 401.1 HYPERTENSION, BENIGN ESSENTIAL 12/30/2011 JERRY PITT MD 401 .1 HYPERTENSION, BENIGN ESSENTIAL 12/30/2011 MIGUEL ANGEL PANDYA, YOLANDA R 401.1 HYPERTENSION, BENIGN ESSENTIAL 12/30/2011 LELAND BROWN MD 401.1 HYPERTENSION, BENIGN ESSENTIAL 12/30/2011 TRAVIS MANCERA DO 401.1 HYPERTENSION, BENIGN ESSENTIAL 01/07/2012 MANCERA DOHOLLYA K 295.70 P SCHIZO AFFECTIVE 01/07/2012 295.70 P S CHIZO AFFECTIVE 01/07/2012 295.70 P S CHIZO AFFECTIVE 01/07/2012 295.70 P S CHIZO AFFECTIVE 01/07/2012 TRAVIS MANCERA DO K 295.70 P SCHIZO AFFECTIVE 01/07/2012 295.70 P S CHIZO AFFECTIVE 01/07/2012 295.70 P S CHIZO AFFECTIVE 01/07/2012 295.70 P S CHIZO AFFECTIVE 01/07/2012 295.70 P S CHIZO AFFECTIVE 01/07/2012 MEHUL WILLINGHAM MD, KALIN Cornejo 295.70 P SCHIZO AFFECTIVE 01/07/2012 295.70 P S CHIZO AFFECTIVE 01/07/2012 295.70 P S CHIZO AFFECTIVE 01/07/2012 295.70 P S CHIZO AFFECTIVE 01/07/2012 295.70 P S CHIZO AFFECTIVE 01/07/2012 295.70 P S CHIZO AFFECTIVE 01/07/2012 295.70 P S CHIZO AFFECTIVE 01/07/2012 295.70 P S CHIZO AFFECTIVE 01/07/2012 295.70 P S CHIZO AFFECTIVE 01/07/2012 295.70 P S CHIZO AFFECTIVE 01/07/2012 295.70 P S CHIZO AFFECTIVE 01/07/2012 295.70 P S CHIZO AFFECTIVE 01/07/2012 IBRAHIMA WATTS DO 295 .70 P SCHIZO AFFECTIVE 01/07/2012 JERRY PITT MD 295 .70 P SCHIZO AFFECTIVE 01/07/2012 TRAVIS MANCERA DO 295.70 P SCHIZO AFFECTIVE 01/07/2012 MANCERA DO TRAVIS K 295.70 P SCHIZO AFFECTIVE 01/07/2012 MANCERA DO, TRAVIS K 295.70 P SCHIZO AFFECTIVE 01/07/2012 MANCERA DO TRAVIS K 295.70 P SCHIZO AFFECTIVE 01/07/2012 SANTY VALLEJO APRN 295.70 P SCHIZO AFFECTIVE 01/07/2012 MANCERA DO RTAVIS K 295.70 P SCHIZO AFFECTIVE 01/07/2012 JERRY PITT MD N 295 .70 P SCHIZO AFFECTIVE 01/07/2012 SANTY VALLEJO APRN 295.70 P SCHIZO AFFECTIVE 01/07/2012 JERRY PITT MD 295 .70 P SCHIZO AFFECTIVE 01/07/2012 SANTY VALLEJO APRN 295.70 P SCHIZO AFFECTIVE 01/07/2012 JERRY PITT MD N 295 .70 P SCHIZO AFFECTIVE 01/07/2012 JERRY PITT MD N 295 .70 P SCHIZO AFFECTIVE 01/07/2012 DIYA GODFREY APRN 295 .70 P SCHIZO AFFECTIVE 01/07/2012 JERRY PITT MD N 295 .70 P SCHIZO AFFECTIVE 01/07/2012 DIYA GODFREY APRN 295 .70 P SCHIZO AFFECTIVE 01/07/2012 MANCERA HOLLY MCGILLA K 295.70 P SCHIZO AFFECTIVE 01/07/2012 ERIN DIEGO, BELINDA E 295. 70 P SCHIZO AFFECTIVE 01/07/2012 ERIN DIEGO, BELINDA E 295. 70 P SCHIZO AFFECTIVE 01/07/2012 ERIN DIEGO, BELINDA E 295. 70 P SCHIZO AFFECTIVE 01/07/2012 JERRY PITT MD N 295 .70 P SCHIZO AFFECTIVE 01/07/2012 MIGUEL ANGEL PANDYA YOLANDA R 295.70 P SCHIZO AFFECTIVE 01/07/2012 JERRY PITT MD N 295 .70 P SCHIZO AFFECTIVE 01/07/2012 MIGUEL ANGEL PANDYA YOLANDA R 295.70 P SCHIZO AFFECTIVE 01/07/2012 LELAND BROWN MD 295.70 P SCHIZO AFFECTIVE 01/07/2012 MANCERA DOHOLLYA K 295.70 P SCHIZO AFFECTIVE 01/18/2012 TRAVIS MANCERA DO K 724.2 LUMBAGO/ LOW BACK PAIN 01/18/2012 724.2 LUMB AGO/ LOW BACK PAIN 01/18/2012 724.2 LUMB AGO/ LOW BACK PAIN 01/18/2012 724.2 LUMB AGO/ LOW BACK PAIN 01/18/2012 MANCERA DOTRAVIS K 724.2 LUMBAGO/ LOW BACK PAIN 01/18/2012 724.2 LUMB AGO/ LOW BACK PAIN 01/18/2012 724.2 LUMB AGO/ LOW BACK PAIN 01/18/2012 724.2 LUMB AGO/ LOW BACK PAIN 01/18/2012 724.2 LUMB AGO/ LOW BACK PAIN 01/18/2012 MEHUL WILLINGHAM MD, KALIN Cornejo 724.2 LUMBAGO/ LOW BACK PAIN 01/18/2012 724.2 LUMB AGO/ LOW BACK PAIN 01/18/2012 724.2 LUMB AGO/ LOW BACK PAIN 01/18/2012 724.2 LUMB AGO/ LOW BACK PAIN 01/18/2012 724.2 LUMB AGO/ LOW BACK PAIN 01/18/2012 724.2 LUMB AGO/ LOW BACK PAIN 01/18/2012 724.2 LUMB AGO/ LOW BACK PAIN 01/18/2012 724.2 LUMB AGO/ LOW BACK PAIN 01/18/2012 724.2 LUMB AGO/ LOW BACK PAIN 01/18/2012 724.2 LUMB AGO/ LOW BACK PAIN 01/18/2012 724.2 LUMB AGO/ LOW BACK PAIN 01/18/2012 724.2 LUMB AGO/ LOW BACK PAIN 01/18/2012 IBRAHIMA WATTS DO 724 .2 LUMBAGO/ LOW BACK PAIN 01/18/2012 YOANDY GUTIERREZ, JERRY Aldana 724 .2 LUMBAGO/ LOW BACK PAIN 01/18/2012 MANCERA DOTRAVIS K 724.2 LUMBAGO/ LOW BACK PAIN 01/18/2012 MANCERA DOHOLLYA K 724.2 LUMBAGO/ LOW BACK PAIN 01/18/2012 MANCERA DOHOLLYA K 724.2 LUMBAGO/ LOW BACK PAIN 01/18/2012 MANCERA DO TRAVIS K 724.2 LUMBAGO/ LOW BACK PAIN 01/18/2012 SANTY VALLEJO APRN 724.2 LUMBAGO/ LOW BACK PAIN 01/18/2012 MANCERA DOHOLLYA K 724.2 LUMBAGO/ LOW BACK PAIN 01/18/2012 JERRY PITT MD N 724 .2 LUMBAGO/ LOW BACK PAIN 01/18/2012 SANTY VALLEJO APRN 724.2 LUMBAGO/ LOW BACK PAIN 01/18/2012 JERRY PITT MD N 724 .2 LUMBAGO/ LOW BACK PAIN 01/18/2012 SANTY VALLEJO APRN 724.2 LUMBAGO/ LOW BACK PAIN 01/18/2012 JERRY PITT MD 724 .2 LUMBAGO/ LOW BACK PAIN 01/18/2012 JERRY PITT MD 724 .2 LUMBAGO/ LOW BACK PAIN 01/18/2012 DIYA GODFREY APRN 724 .2 LUMBAGO/ LOW BACK PAIN 01/18/2012 JERRY PITT MD 724 .2 LUMBAGO/ LOW BACK PAIN 01/18/2012 DIYA GODFREY APRN 724 .2 LUMBAGO/ LOW BACK PAIN 01/18/2012 TRAVIS MANCERA DO 724.2 LUMBAGO/ LOW BACK PAIN 01/18/2012 ERIN DIEGO, BELINDA Swartz 724. 2 LUMBAGO/ LOW BACK PAIN 01/18/2012 ERIN DIEGO, BELINDA E 724. 2 LUMBAGO/ LOW BACK PAIN 01/18/2012 BELINDA KHAN RN E 724. 2 LUMBAGO/ LOW BACK PAIN 01/18/2012 JERRY PITT MD 724 .2 LUMBAGO/ LOW BACK PAIN 01/18/2012 YOLANDA MICHELLE APRN R 724.2 LUMBAGO/ LOW BACK PAIN 01/18/2012 JERRY PITT MD N 724 .2 LUMBAGO/ LOW BACK PAIN 01/18/2012 YOLANDA MICHELLE APRN R 724.2 LUMBAGO/ LOW BACK PAIN 01/18/2012 LELAND BROWN MD 724.2 LUMBAGO/ LOW BACK PAIN 01/18/2012 TRAVIS MANCERA DO 724.2 LUMBAGO/ LOW BACK PAIN 02/24/2012 380.22 OTH ER ACUTE OTITIS EXTERNA 02/24/2012 V03.82 PPV 23 (PNEUMOVAX) DX 02/24/2012 V04.81 FLU DX (3 YRS AND ABOVE, IM) 02/24/2012 V06.1 TDAP DX 02/24/2012 380.22 OTH ER ACUTE OTITIS EXTERNA 02/24/2012 V03.82 PPV 23 (PNEUMOVAX) DX 02/24/2012 V04.81 FLU DX (3 YRS AND ABOVE, IM) 02/24/2012 V06.1 TDAP DX 02/24/2012 TRAVIS MANCERA DO K 380.22 OTHER ACUTE OTITIS EXTERNA 02/24/2012 TRAVIS MANCERA DO K V03.82 PPV23 (PNEUMOVAX) DX 02/24/2012 TRAVIS MANCERA DO K V04.81 FLU DX (3 YRS AND ABOVE, IM) 02/24/2012 TRAVIS MANCERA DO K V06.1 TDAP DX 02/24/2012 380.22 OTH ER ACUTE OTITIS EXTERNA 02/24/2012 V03.82 PPV 23 (PNEUMOVAX) DX 02/24/2012 V04.81 FLU DX (3 YRS AND ABOVE, IM) 02/24/2012 V06.1 TDAP DX 02/24/2012 380.22 OTH ER ACUTE OTITIS EXTERNA 02/24/2012 V03.82 PPV 23 (PNEUMOVAX) DX 02/24/2012 V04.81 FLU DX (3 YRS AND ABOVE, IM) 02/24/2012 V06.1 TDAP DX 02/24/2012 380.22 OTH ER ACUTE OTITIS EXTERNA 02/24/2012 V03.82 PPV 23 (PNEUMOVAX) DX 02/24/2012 V04.81 FLU DX (3 YRS AND ABOVE, IM) 02/24/2012 V06.1 TDAP DX 02/24/2012 380.22 Oth er Acute Otitis Externa 02/24/2012 V03.82 Ppv 23 (pneumovax) Dx 02/24/2012 V04.81 Flu Dx (3 Yrs And Above, Im) 02/24/2012 V06.1 Tdap Dx 02/24/2012 MEHUL WILLINGHAM MD, KALIN Cornejo 380.22 Other Acute Otitis Externa 02/24/2012 MEHUL WILLINGHAM MD, KALIN Cornejo V03.82 Ppv23 (pneumovax) Dx 02/24/2012 MEHUL WILLINGHAM MD, KALIN Cornejo V04.81 Flu Dx (3 Yrs And Above, Im) 02/24/2012 MEHUL WILLINGHAM MD, KAILN Cornejo V06.1 Tdap Dx 02/24/2012 380.22 Oth er Acute Otitis Externa 02/24/2012 V03.82 Ppv 23 (pneumovax) Dx 02/24/2012 V04.81 Flu Dx (3 Yrs And Above, Im) 02/24/2012 V06.1 Tdap Dx 02/24/2012 380.22 Oth er Acute Otitis Externa 02/24/2012 V03.82 Ppv 23 (pneumovax) Dx 02/24/2012 V04.81 Flu Dx (3 Yrs And Above, Im) 02/24/2012 V06.1 Tdap Dx 02/24/2012 380.22 Oth er Acute Otitis Externa 02/24/2012 V03.82 Ppv 23 (pneumovax) Dx 02/24/2012 V04.81 Flu Dx (3 Yrs And Above, Im) 02/24/2012 V06.1 Tdap Dx 02/24/2012 380.22 Oth er Acute Otitis Externa 02/24/2012 V03.82 Ppv 23 (pneumovax) Dx 02/24/2012 V04.81 Flu Dx (3 Yrs And Above, Im) 02/24/2012 V06.1 Tdap Dx 02/24/2012 380.22 Oth er Acute Otitis Externa 02/24/2012 V03.82 Ppv 23 (pneumovax) Dx 02/24/2012 V04.81 Flu Dx (3 Yrs And Above, Im) 02/24/2012 V06.1 Tdap Dx 02/24/2012 380.22 Oth er Acute Otitis Externa 02/24/2012 V03.82 Ppv 23 (pneumovax) Dx 02/24/2012 V04.81 Flu Dx (3 Yrs And Above, Im) 02/24/2012 V06.1 Tdap Dx 02/24/2012 380.22 Oth er Acute Otitis Externa 02/24/2012 V03.82 Ppv 23 (pneumovax) Dx 02/24/2012 V04.81 Flu Dx (3 Yrs And Above, Im) 02/24/2012 V06.1 Tdap Dx 02/24/2012 380.22 Oth er Acute Otitis Externa 02/24/2012 V03.82 Ppv 23 (pneumovax) Dx 02/24/2012 V04.81 Flu Dx (3 Yrs And Above, Im) 02/24/2012 V06.1 Tdap Dx 02/24/2012 380.22 Oth er Acute Otitis Externa 02/24/2012 V03.82 Ppv 23 (pneumovax) Dx 02/24/2012 V04.81 Flu Dx (3 Yrs And Above, Im) 02/24/2012 V06.1 Tdap Dx 02/24/2012 380.22 Oth er Acute Otitis Externa 02/24/2012 V03.82 Ppv 23 (pneumovax) Dx 02/24/2012 V04.81 Flu Dx (3 Yrs And Above, Im) 02/24/2012 V06.1 Tdap Dx 02/24/2012 380.22 Oth er Acute Otitis Externa 02/24/2012 V03.82 Ppv 23 (pneumovax) Dx 02/24/2012 V04.81 Flu Dx (3 Yrs And Above, Im) 02/24/2012 V06.1 Tdap Dx 02/24/2012 IBRAHIMA WATTS DO 380 .22 Other Acute Otitis Externa 02/24/2012 IBRAHIMA WATTS DO V03 .82 Ppv23 (pneumovax) Dx 02/24/2012 IBRAHIMA WATTS DO V04 .81 Flu Dx (3 Yrs And Above, Im) 02/24/2012 IBRAHIMA WATTS DO V06 .1 Tdap Dx 02/24/2012 JERRY PITT MD 380 .22 Other Acute Otitis Externa 02/24/2012 JERRY PITT MD V03 .82 Ppv23 (pneumovax) Dx 02/24/2012 JERRY PITT MD V04 .81 Flu Dx (3 Yrs And Above, Im) 02/24/2012 JERRY PITT MD V06 .1 Tdap Dx 02/24/2012 TRAVIS MANCERA DO 380.22 Other Acute Otitis Externa 02/24/2012 TRAVIS MANCERA DO V03.82 Ppv23 (pneumovax) Dx 02/24/2012 TRAVIS MANCERA DO V04.81 Flu Dx (3 Yrs And Above, Im) 02/24/2012 TRAVIS MANCERA DO K V06.1 Tdap Dx 02/24/2012 TRAVIS MANCERA DO K 380.22 Other Acute Otitis Externa 02/24/2012 TRAVIS MANCERA DO K V03.82 Ppv23 (pneumovax) Dx 02/24/2012 MANCERA DO, TRAIVS K V04.81 Flu Dx (3 Yrs And Above, Im) 02/24/2012 MANCERA DO, TRAVIS K V06.1 Tdap Dx 02/24/2012 MANCERA DO, TRAVIS K 380.22 Other Acute Otitis Externa 02/24/2012 MANCERA DO, TRAVIS K V03.82 Ppv23 (pneumovax) Dx 02/24/2012 MANCERA DO, TRAVIS K V04.81 Flu Dx (3 Yrs And Above, Im) 02/24/2012 MANCERA DO, TRAVIS K V06.1 Tdap Dx 02/24/2012 MANCERA DO, TRAVSI K 380.22 Other Acute Otitis Externa 02/24/2012 [...] VALLEJO APRN V06.1 Tdap Dx 02/24/2012 CALDERON MCGILL, TRAVIS K 380.22 Other Acute Otitis Externa 02/24/2012 MANCERA DO, TRAVIS K V03.82 Ppv23 (pneumovax) Dx 02/24/2012 MANCERA DO, TRAVIS K V04.81 Flu Dx (3 Yrs And Above, Im) 02/24/2012 MANCERA DO, TRAVIS K V06.1 Tdap Dx 02/24/2012 JERRY PITT MD 380 .22 Other Acute Otitis Externa 02/24/2012 JERRY PITT MD V03 .82 Ppv23 (pneumovax) Dx 02/24/2012 JERRY PITT MD V04 .81 Flu Dx (3 Yrs And Above, Im) 02/24/2012 JERRY PITT MD V06 .1 Tdap Dx 02/24/2012 SANTY VALLEJO APRN 380.22 Other Acute Otitis Externa 02/24/2012 SANTY VALLEJO APRN V03.82 Ppv23 (pneumovax) Dx 02/24/2012 SANTY VALLEJO APRN V04.81 Flu Dx (3 Yrs And Above, Im) 02/24/2012 SANTY VALLEJO APRN V06.1 Tdap Dx 02/24/2012 JERRY PITT MD 380 .22 Other Acute Otitis Externa 02/24/2012 JERRY PITT MD V03 .82 Ppv23 (pneumovax) Dx 02/24/2012 JERRY PITT MD V04 .81 Flu Dx (3 Yrs And Above, Im) 02/24/2012 JERRY PITT MD V06 .1 Tdap Dx 02/24/2012 SANTY VALLEJO APRN 380.22 Other Acute Otitis Externa 02/24/2012 SANTY VALLEJO APRN V03.82 Ppv23 (pneumovax) Dx 02/24/2012 SANTY VALLEJO APRN V04.81 Flu Dx (3 Yrs And Above, Im) 02/24/2012 SANTY VALLEJO APRN V06.1 Tdap Dx 02/24/2012 JERRY PITT MD N 380 .22 Other Acute Otitis Externa 02/24/2012 JERRY PITT MD V03 .82 Ppv23 (pneumovax) Dx 02/24/2012 JERRY PITT MD V04 .81 Flu Dx (3 Yrs And Above, Im) 02/24/2012 JERRY PITT MD V06 .1 Tdap Dx 02/24/2012 JERRY PITT MD 380 .22 Other Acute Otitis Externa 02/24/2012 JERRY PITT MD V03 .82 Ppv23 (pneumovax) Dx 02/24/2012 JERRY PITT MD V04 .81 Flu Dx (3 Yrs And Above, Im) 02/24/2012 JERRY PITT MD V06 .1 Tdap Dx 02/24/2012 DIYA GODFREY APRN 380 .22 Other Acute Otitis Externa 02/24/2012 BEKAH PANDYA, DIYA V03 .82 Ppv23 (pneumovax) Dx 02/24/2012 BEKAH MEDICAL POLICY SPECIALIST, DIYA V04 .81 Flu Dx (3 Yrs And Above, Im) 02/24/2012BEKAH MEDICAL POLICY SPECIALIST, DIYA V06 .1 Tdap Dx 02/24/2012 JERRY PITT MD 380 .22 Other Acute Otitis Externa 02/24/2012 JERRY PITT MD V03 .82 Ppv23 (pneumovax) Dx 02/24/2012 JERRY PITT MD V04 .81 Flu Dx (3 Yrs And Above, Im) 02/24/2012 JERRY PITT MD V06 .1 Tdap Dx 02/24/2012 BEKAH MEDICAL POLICY SPECIALISTARTIE AldanaDIYA 380 .22 Other Acute Otitis Externa 02/24/2012 BEKAH MEDICAL POLICY SPECIALIST, DIYA V03 .82 Ppv23 (pneumovax) Dx 02/24/2012 BEKAH YA, DIYA V04 .81 Flu Dx (3 Yrs And Above, Im) 02/24/2012 BEKAH MEDICAL POLICY SPECIALIST, DIYA V06 .1 Tdap Dx 02/24/2012 MANCERA DO TRAVIS K 380.22 Other Acute Otitis Externa 02/24/2012 CALDERON MCGILLHOLLYA K V03.82 Ppv23 (pneumovax) Dx 02/24/2012 CALDERON MCGILLHOLLYA K V04.81 Flu Dx (3 Yrs And Above, Im) 02/24/2012 CALDERON MCGILL TRAVIS K V06.1 Tdap Dx 02/24/2012 ERIN DIEGO, BELINDA Swartz 380. 22 Other Acute Otitis Externa 02/24/2012 BELINDA KHAN RN V03. 82 Ppv23 (pneumovax) Dx 02/24/2012 BELINDA KHAN RN V04. 81 Flu Dx (3 Yrs And Above, Im) 02/24/2012 BELINDA KHAN RN V06. 1 Tdap Dx 02/24/2012 BELINDA KHAN RN E 380. 22 Other Acute Otitis Externa 02/24/2012 BELINDA KHAN RN E V03. 82 Ppv23 (pneumovax) Dx 02/24/2012 BELINDA KHAN RN V04. 81 Flu Dx (3 Yrs And Above, Im) 02/24/2012 BELINDA KHAN RN E V06. 1 Tdap Dx 02/24/2012 ERIN RN, BELINDA E 380. 22 Other Acute Otitis Externa 02/24/2012 ERIN RN, BELINDA E V03. 82 Ppv23 (pneumovax) Dx 02/24/2012 ERIN RN, BELINDA E V04. 81 Flu Dx (3 Yrs And Above, Im) 02/24/2012 ERIN RN, BELINDA E V06. 1 Tdap Dx 02/24/2012 JERRY PITT MD N 380 .22 Other Acute Otitis Externa 02/24/2012 JERRY PITT MD V03 .82 Ppv23 (pneumovax) Dx 02/24/2012 JERRY PITT MD V04 .81 Flu Dx (3 Yrs And Above, Im) 02/24/2012 JERRY PITT MD N V06 .1 Tdap Dx 02/24/2012 MIGUEL ANGEL PANDYA YOLANDA R 380.22 Other Acute Otitis Externa 02/24/2012 HIMANSHU MICHELLE APRNINA R V03.82 Ppv23 (pneumovax) Dx 02/24/2012 YOLANDA MICHELLE APRN R V04.81 Flu Dx (3 Yrs And Above, Im) 02/24/2012 MIGUEL ANGEL PANDYA YOLANDA R V06.1 Tdap Dx 02/24/2012 JERRY PITT MD N 380 .22 Other Acute Otitis Externa 02/24/2012 JERRY PITT MD N V03 .82 Ppv23 (pneumovax) Dx 02/24/2012 JERRY PITT MD V04 .81 Flu Dx (3 Yrs And Above, Im) 02/24/2012 JERRY PITT MD N V06 .1 Tdap Dx 02/24/2012 HIMANSHU MICHELLE APRNINA R 380.22 Other Acute Otitis Externa 02/24/2012 HIMANSHU MICHELLE APRNINA R V03.82 Ppv23 (pneumovax) Dx 02/24/2012 HIMANSHU MICHELLE APRNINA R V04.81 Flu Dx (3 Yrs And [...] (CURRENT) USE OF OTHER MEDICATIONS 02/25/2012 V58.69 LUCÍA G-TERM (CURRENT) USE OF OTHER MEDICATIONS 02/25/2012 V58.69 LUCÍA G-TERM (CURRENT) USE OF OTHER MEDICATIONS 02/25/2012 V58.69 LUCÍA G-TERM (CURRENT) USE OF OTHER MEDICATIONS 02/25/2012 V58.69 Lucía g-term (current) Use Of Other Medications 02/25/2012 MEHUL WILLINGHAM MD, KALIN Cornejo V58.69 Long-term (current) Use Of Other Medications 02/25/2012 V58.69 Lucía g-term (current) Use Of Other Medications 02/25/2012 V58.69 Lucía g-term (current) Use Of Other Medications 02/25/2012 V58.69 Lucía g-term (current) Use Of Other Medications 02/25/2012 V58.69 Lucía g-term (current) Use Of Other Medications 02/25/2012 V58.69 Lucía g-term (current) Use Of Other Medications 02/25/2012 V58.69 Lucía g-term (current) Use Of Other Medications 02/25/2012 V58.69 Lucía g-term (current) Use Of Other Medications 02/25/2012 V58.69 Lucía g-term (current) Use Of Other Medications 02/25/2012 V58.69 Lucía g-term (current) Use Of Other Medications 02/25/2012 V58.69 Lucía g-term (current) Use Of Other Medications 02/25/2012 V58.69 Lucía g-term (current) Use Of Other Medications 02/25/2012 IBRAHIMA WATTS DO V58 .69 Long-term (current) Use Of Other Medications 02/25/2012 JERRY PITT MD V58 .69 Long-term (current) Use Of Other Medications 02/25/2012 [...] Of Other Medications 02/25/2012 JERRY PITT MD V58 .69 Long-term (current) Use Of Other Medications 02/25/2012 SANTY VALLEJO APRN V58.69 Long-term (current) Use Of Other Medications 02/25/2012 JERRY PITT MD V58 .Monica Long-term (current) Use Of Other Medications 02/25/2012 SANTY VALLEJO APRN V58.69 Long-term (current) Use Of Other Medications 02/25/2012 JERRY PITT MD V58 .Monica Long-term (current) Use Of Other Medications 02/25/2012 JERRY PITT MD V58 .69 Long-term (current) Use Of Other Medications 02/25/2012 DIYA GODFREY APRN V58 .69 Long-term (current) Use Of Other Medications 02/25/2012 JERRY PITT MD V58 .69 Long-term (current) Use Of Other Medications 02/25/2012 DIYA GODFREY APRN V58 .69 Long-term (current) Use Of Other Medications 02/25/2012 TRAVIS MANCERA DO V58.69 Long-term (current) Use Of Other Medications 02/25/2012 BELINDA KHAN RN V58. 69 Long-term (current) Use Of Other Medications 02/25/2012 BELINDA KHAN RN V58. 69 Long-term (current) Use Of Other Medications 02/25/2012 ERIN DIEGO, BELINDA E V58. 69 Long-term (current) Use Of Other Medications 02/25/2012 JERRY PITT MD V58 .69 Long-term (current) Use Of Other Medications 02/25/2012 YOLANDA MICHELLE APRN V58.69 Long-term (current) Use Of Other Medications 02/25/2012 JERRY PITT MD V58 .69 Long-term (current) Use Of Other Medications 02/25/2012 YOLANDA MICHELLE APRN V58.69 Long-term (current) Use Of Other Medications 02/25/2012 LELAND BROWN MD V58.69 Long-term (current) Use Of Other Medications 02/25/2012 TRAVIS MANCERA DO V58.69 Long-term (current) Use Of Other Medications 03/02/2012 300.00 AN ANXIETY UNSPEC 03/02/2012 303.90 ALC OHOL DEPENDENCE 03/02/2012 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 03/02/2012 307.47 SI DYSSOMNIA NOS 03/02/2012 TRAVIS MANCERA DO 300.00 AN ANXIETY UNSPEC 03/02/2012 TRAVIS MANCERA DO 303.90 ALCOHOL DEPENDENCE 03/02/2012 TRAVIS MANCERA DO 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 03/02/2012 TRAVIS MANCERA DO 307.47 SI DYSSOMNIA NOS 03/02/2012 300.00 AN ANXIETY UNSPEC 03/02/2012 303.90 ALC OHOL DEPENDENCE 03/02/2012 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 03/02/2012 307.47 SI DYSSOMNIA NOS 03/02/2012 300.00 AN ANXIETY UNSPEC 03/02/2012 303.90 ALC OHOL DEPENDENCE 03/02/2012 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00 AN ANXIETY UNSPEC 03/02/2012 303.90 ALC OHOL DEPENDENCE 03/02/2012 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 03/02/2012 307.47 SI DYSSOMNIA NOS 03/02/2012 300.00 AN ANXIETY UNSPEC 03/02/2012 303.90 ALC OHOL DEPENDENCE 03/02/2012 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 03/02/2012 307.47 SI DYSSOMNIA NOS 03/02/2012 300.00 AN ANXIETY UNSPEC 03/02/2012 303.90 ALC OHOL DEPENDENCE 03/02/2012 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 03/02/2012 307.47 SI DYSSOMNIA NOS 03/02/2012 300.00 AN ANXIETY UNSPEC 03/02/2012 303.90 ALC OHOL DEPENDENCE 03/02/2012 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 03/02/2012 307.47 SI DYSSOMNIA NOS 03/02/2012 300.00 AN ANXIETY UNSPEC 03/02/2012 303.90 ALC OHOL DEPENDENCE 03/02/2012 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 03/02/2012 307.47 SI DYSSOMNIA NOS 03/02/2012 300.00 AN ANXIETY UNSPEC 03/02/2012 303.90 ALC OHOL DEPENDENCE 03/02/2012 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 03/02/2012 307.47 SI DYSSOMNIA NOS 03/02/2012 300.00 AN ANXIETY UNSPEC 03/02/2012 303.90 ALC OHOL DEPENDENCE 03/02/2012 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 03/02/2012 307.47 SI DYSSOMNIA NOS 03/02/2012 300.00 AN ANXIETY UNSPEC 03/02/2012 303.90 ALC OHOL DEPENDENCE 03/02/2012 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 03/02/2012 307.47 SI DYSSOMNIA NOS 03/02/2012 300.00 AN ANXIETY UNSPEC 03/02/2012 303.90 ALC OHOL DEPENDENCE 03/02/2012 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 03/02/2012 307.47 SI DYSSOMNIA NOS 03/02/2012 POORNIMASALDIVAR IBRAHIMA F 300 .00 AN ANXIETY UNSPEC 03/02/2012 MAC MCGILL IBRAHIMA F 303 .90 ALCOHOL DEPENDENCE 03/02/2012 MAC MCGILL IBRAHIMA F 305 .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 03/02/2012 MAC MCGILL IBRAHIMA F 307 .47 SI DYSSOMNIA NOS 03/02/2012 JERRY PITT MD N 300 .00 AN ANXIETY UNSPEC 03/02/2012 JERRY PITT MD N 303 .90 ALCOHOL DEPENDENCE 03/02/2012 JERRY PITT MD N 305 .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 03/02/2012 JERRY PITT MD N 307 .47 SI DYSSOMNIA NOS 03/02/2012 MANCERA DO, TRAVIS K 300.00 AN ANXIETY UNSPEC 03/02/2012 CALDERON MCGILL, TRAVIS K 303.90 ALCOHOL DEPENDENCE 03/02/2012 MANCERA [...] K 307.47 SI DYSSOMNIA NOS 03/02/2012 MANCERA DO TRAVIS K 300.00 AN ANXIETY UNSPEC 03/02/2012 [...] , TRAVIS K 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 03/02/2012 CALDERON MCGILL, TRAVIS K 307.47 SI DYSSOMNIA NOS 03/02/2012 JERRY PITT MD N 300 .00 AN ANXIETY UNSPEC 03/02/2012 JERRY PITT MD 303 .90 ALCOHOL DEPENDENCE 03/02/2012 JERRY PITT MD 305 .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 03/02/2012 JERRY PITT MD 307 .47 SI DYSSOMNIA NOS 03/02/2012 SANTY VALLEJO APRN 300.00 AN ANXIETY UNSPEC 03/02/2012 SANTY VALLEJO APRN 303.90 ALCOHOL DEPENDENCE 03/02/2012 SANTY VALLEJO APRN 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 03/02/2012 SANTY VALLEJO APRN 307.47 SI DYSSOMNIA NOS 03/02/2012 JERRY PITT MD N 300 .00 AN ANXIETY UNSPEC 03/02/2012 JERRY PITT MD N 303 .90 ALCOHOL DEPENDENCE 03/02/2012 JERRY PITT MD N 305 .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 03/02/2012 JERRY PITT MD N 307 .47 SI DYSSOMNIA NOS 03/02/2012 SANTY VALLEJO APRN 300.00 AN ANXIETY UNSPEC 03/02/2012 SANTY VALLEJO APRN 303.90 ALCOHOL DEPENDENCE 03/02/2012 SANTY VALLEJO APRN 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 03/02/2012 SANTY VALLEJO APRN 307.47 SI DYSSOMNIA NOS 03/02/2012 JERRY PITT MD N 300 .00 AN ANXIETY UNSPEC 03/02/2012 JERRY PITT MD N 303 .90 ALCOHOL DEPENDENCE 03/02/2012 JERRY PITT MD N 305 .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 03/02/2012 JERRY PITT MD N 307 .47 SI DYSSOMNIA NOS 03/02/2012 JERRY PITT MD N 300 .00 AN ANXIETY UNSPEC 03/02/2012 JERRY PITT MD N 303 .90 ALCOHOL DEPENDENCE 03/02/2012 JERRY PITT MD N 305 .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 03/02/2012 JERRY PITT MD 307 .47 SI DYSSOMNIA NOS 03/02/2012 BEKAHKAREN PANDYA DIYA 300 .00 AN ANXIETY UNSPEC 03/02/2012 BEKAH MEDICAL POLICY SPECIALIST, DIYA 303 .90 ALCOHOL DEPENDENCE 03/02/2012 BEKAH MEDICAL POLICY SPECIALIST, DIYA 305 .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 03/02/2012 BEKAH MEDICAL POLICY SPECIALIST, DIYA 307 .47 SI DYSSOMNIA NOS 03/02/2012 JERRY PITT MD N 300 .00 AN ANXIETY UNSPEC 03/02/2012 JERRY PITT MD N 303 .90 ALCOHOL DEPENDENCE 03/02/2012 JERRY PITT MD N 305 .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 03/02/2012 JERRY PITT MD N 307 .47 SI DYSSOMNIA NOS 03/02/2012 BEKAH MEDICAL POLICY SPECIALIST, DIYA 300 .00 AN ANXIETY UNSPEC 03/02/2012 BEKAH MEDICAL POLICY SPECIALIST, DIYA 303 .90 ALCOHOL DEPENDENCE 03/02/2012 BEKAH MEDICAL POLICY SPECIALIST, DIYA 305 .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 03/02/2012 BEKAH MEDICAL POLICY SPECIALIST, DIYA 307 .47 SI DYSSOMNIA NOS 03/02/2012 CALDERON MCGILL TRAVIS K 300.00 AN ANXIETY UNSPEC 03/02/2012 HOLLY MANCERA DOA K 303.90 ALCOHOL DEPENDENCE 03/02/2012 CALDERON MCGILL TRAVIS K 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 03/02/2012 MANCERA DO TRAVIS K 307.47 SI DYSSOMNIA NOS 03/02/2012 ERIN DIEGO, BELINDA Swartz 300. 00 AN ANXIETY UNSPEC 03/02/2012 BELINDA KHAN RN 303. 90 ALCOHOL DEPENDENCE 03/02/2012 KHAN RN, BELINDA E 305. 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 03/02/2012 KHAN RN, BELINDA E 307. 47 SI DYSSOMNIA NOS 03/02/2012 KHAN RN, BELINDA E 300. 00 AN ANXIETY UNSPEC 03/02/2012 KHAN RN, BELINDA E 303. 90 ALCOHOL DEPENDENCE 03/02/2012 KHAN RN, BELINDA E 305. 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 03/02/2012 KHAN RN, BELINDA E 307. 47 SI DYSSOMNIA NOS 03/02/2012 KHAN RN, BELINDA E 300. 00 AN ANXIETY UNSPEC 03/02/2012 KHAN RN, BELINDA E 303. 90 ALCOHOL DEPENDENCE 03/02/2012 KHAN RN, BELINDA E 305. 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 03/02/2012 KHAN RN, BELINDA E 307. 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 03/02/2012 HIMANSHU MICHELLE APRNINA R 307.47 SI DYSSOMNIA NOS 03/02/2012 JERRY PITT MD N 300 .00 AN ANXIETY UNSPEC 03/02/2012 JERRY PITT MD N 303 .90 ALCOHOL DEPENDENCE 03/02/2012 JERRY PITT MD N 305 .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 03/02/2012 JERRY PITT MD N 307 .47 SI DYSSOMNIA NOS 03/02/2012 HIMANSHU MICHELLE APRNINA R 300.00 AN ANXIETY UNSPEC 03/02/2012 MIGUEL ANGEL PANDYA YOLANDA R 303.90 ALCOHOL DEPENDENCE 03/02/2012 MIGUEL ANGEL PANDYA YOLANDA R 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 03/02/2012 MIGUEL ANGEL PANDYA YOLANDA R 307.47 SI DYSSOMNIA NOS 03/02/2012 LELAND BROWN MD 300.00 AN ANXIETY UNSPEC 03/02/2012 LELAND BROWN MD 303.90 ALCOHOL DEPENDENCE 03/02/2012 KEVIN GUTIERREZ, LELAND 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 03/02/2012 LELAND BROWN MD 307.47 SI DYSSOMNIA NOS 03/02/2012 TRAVIS MANCERA DO K 300.00 AN ANXIETY UNSPEC 03/02/2012 TRAVIS MANCERA DO K 303.90 ALCOHOL DEPENDENCE 03/02/2012 TRAVIS MANCERA DO K 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 03/02/2012 TRAVIS MANCERA DO 307.47 SI DYSSOMNIA NOS 03/06/2012 TRAVIS MANCERA DO 682.6 CELLULITIS AND ABSCESS OF LEG EXCEPT FOOT 03/06/2012 682.6 CELL ULITIS AND ABSCESS OF LEG EXCEPT FOOT 03/06/2012 682.6 CELL ULITIS AND ABSCESS OF LEG EXCEPT FOOT 03/06/2012 682.6 CELL ULITIS AND ABSCESS OF LEG EXCEPT FOOT 03/06/2012 682.6 Cell ulitis And Abscess Of Leg Except Foot 03/06/2012 MEHUL WILLINGHAM MD, KALIN A 682.6 Cellulitis And Abscess Of Leg Except Foot 03/06/2012 682.6 Cell ulitis And Abscess Of Leg Except Foot 03/06/2012 682.6 Cell ulitis And Abscess Of Leg Except Foot 03/06/2012 682.6 Cell ulitis And Abscess Of Leg Except Foot 03/06/2012 682.6 Cell ulitis And Abscess Of Leg Except Foot 03/06/2012 682.6 Cell ulitis And Abscess Of Leg Except Foot 03/06/2012 682.6 Cell ulitis And Abscess Of Leg Except Foot 03/06/2012 682.6 Cell ulitis And Abscess Of Leg Except Foot 03/06/2012 682.6 Cell ulitis And Abscess Of Leg Except Foot 03/06/2012 682.6 Cell ulitis And Abscess Of Leg Except Foot 03/06/2012 682.6 Cell ulitis And Abscess Of Leg Except Foot 03/06/2012 682.6 Cell ulitis And Abscess Of Leg Except Foot 03/06/2012 IBRAHIMA WATTS DO 682 .6 Cellulitis And Abscess Of Leg Except Foot 03/06/2012 YOANDY GUTIERREZ, JERRY Aldana 682 .6 Cellulitis And Abscess Of Leg Except Foot [...] Leg Except Foot 03/06/2012 JERRY PITT MD 682 .6 Cellulitis And Abscess Of Leg Except Foot 03/06/2012 SANTY VALLEJO APRN 682.6 Cellulitis And Abscess Of Leg Except Foot 03/06/2012 JERRY PITT MD 682 .6 Cellulitis And Abscess Of Leg Except Foot 03/06/2012 SANTY VALLEJO APRN 682.6 Cellulitis And Abscess Of Leg Except Foot 03/06/2012 JERRY PITT MD 682 .6 Cellulitis And Abscess Of Leg Except Foot 03/06/2012 JERRY PITT MD 682 .6 Cellulitis And Abscess Of Leg Except Foot 03/06/2012 DIYA GODFREY APRN 682 .6 Cellulitis And Abscess Of Leg Except Foot 03/06/2012 JERRY PITT MD 682 .6 Cellulitis And Abscess Of Leg Except Foot 03/06/2012 DIYA GODFREY APRN 682 .6 Cellulitis And Abscess Of Leg Except Foot 03/06/2012 TRAVIS MANCERA DO 682.6 Cellulitis And Abscess Of Leg Except Foot 03/06/2012 ERIN DIEGO, BELINDA E 682. 6 Cellulitis And Abscess Of Leg Except Foot 03/06/2012 ERIN DIEGO, BELINDA E 682. 6 Cellulitis And Abscess Of Leg Except Foot 03/06/2012 ERIN DIEGO, BELINDA E 682. 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 03/22/2012 Ot 401.9 HYPE RTENSION NOS 03/22/2012 Ot 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 03/22/2012 Ot V58.69 OTH MED,LT,CURRENT USE 03/22/2012 Ot V90.9 MELLISSA INED FOREIGN BODY, UNSPECIFIED MATER 05/16/2012 214.9 LIPOMA 05/16/2012 719.43 ISMAEL N- WRIST 05/16/2012 KALIN PELAYO MD 214.9 LIPOMA 05/16/2012 KALIN PELAYO MD 719.43 PAIN- WRIST 05/16/2012 214.9 LIPOMA 05/16/2012 719.43 ISMAEL N- WRIST 05/16/2012 214.9 LIPOMA 05/16/2012 719.43 ISMAEL N- WRIST 05/16/2012 214.9 LIPOMA 05/16/2012 719.43 ISMAEL N- WRIST 05/16/2012 214.9 LIPOMA 05/16/2012 719.43 ISMAEL N- WRIST 05/16/2012 214.9 LIPOMA 05/16/2012 719.43 ISMAEL N- WRIST 05/16/2012 214.9 LIPOMA 05/16/2012 719.43 ISMAEL N- WRIST 05/16/2012 214.9 LIPOMA 05/16/2012 719.43 ISMAEL N- WRIST 05/16/2012 214.9 LIPOMA 05/16/2012 719.43 ISMAEL N- WRIST 05/16/2012 214.9 LIPOMA 05/16/2012 719.43 ISMAEL N- WRIST 05/16/2012 214.9 LIPOMA 05/16/2012 719.43 ISMAEL N- WRIST 05/16/2012 214.9 LIPOMA 05/16/2012 719.43 ISMAEL N- WRIST 05/16/2012 IBRAHIMA WATTS DO 214 .9 LIPOMA 05/16/2012 IBRAHIMA WATTS DO F 719 .43 PAIN- WRIST 05/16/2012 JERRY PITT MD 214 .9 LIPOMA 05/16/2012 JERRY PITT MD 719 .43 PAIN- WRIST 05/16/2012 MANCERA DO, TRAVIS K [...] PAIN- WRIST 05/16/2012 JERRY PITT MD N 214 .9 LIPOMA 05/16/2012 JERRY PITT MD 719 .43 PAIN- WRIST 05/16/2012 SANTY VALLEJO APRN 214.9 LIPOMA 05/16/2012 SANTY VALLEJO APRN 719.43 PAIN- WRIST 05/16/2012 JERRY PITT MD N 214 .9 LIPOMA 05/16/2012 JERRY PITT MD 719 .43 PAIN- WRIST 05/16/2012 SANTY VALLEJO APRN 214.9 LIPOMA 05/16/2012 SANTY VALLEJO APRN 719.43 PAIN- WRIST 05/16/2012 JERRY PITT MD N 214 .9 LIPOMA 05/16/2012 JERRY PITT MD 719 .43 PAIN- WRIST 05/16/2012 JERRY PITT MD N 214 .9 LIPOMA 05/16/2012 YOANDY MD, JERRY N 719 .43 PAIN- WRIST 05/16/2012 BEKAH [employer] POLIC[employer] SPECIALIST, DIYA 214 .9 LIPOMA 05/16/2012 BEKAH MEDICAL POLICY SPECIALIST, DIYA 719 .43 PAIN- WRIST 05/16/2012 JERRY PITT MD N 214 .9 LIPOMA 05/16/2012 JERRY PITT MD N 719 .43 PAIN- WRIST 05/16/2012 BEKAH YA, DIYA 214 .9 LIPOMA 05/16/2012 BEKAH MEDICAL POLICY SPECIALIST, DIYA 719 .43 PAIN- WRIST 05/16/2012 CALDERON MCGILL TRAVIS K 214.9 LIPOMA 05/16/2012 MANCERA DO TRAVIS K 719.43 PAIN- WRIST 05/16/2012 ERIN DIEGO, BELINDA E 214. 9 LIPOMA 05/16/2012 ERIN DIEGO, BELINDA E 719. 43 PAIN- WRIST 05/16/2012 ERIN DIEGO, BELINDA E 214. 9 LIPOMA 05/16/2012 ERIN DIEGO, BELINDA E 719. 43 PAIN- WRIST 05/16/2012 ERIN DIEGO, BELINDA E 214. 9 LIPOMA 05/16/2012 ERIN DIEGO, BELINDA E 719. 43 PAIN- WRIST 05/16/2012 JERRY PITT MD N 214 .9 LIPOMA 05/16/2012 JERRY PITT MD 719 .43 PAIN- WRIST 05/16/2012 MIGUEL ANGEL PANDYA, YOLANDA R 214.9 LIPOMA 05/16/2012 MIGUEL ANGEL PANDYA YOLANDA R 719.43 PAIN- WRIST 05/16/2012 JERRY PITT MD N 214 .9 LIPOMA 05/16/2012 JERRY PITT MD 719 .43 PAIN- WRIST 05/16/2012 MIGUEL ANGEL PANDYA, YOLANDA R 214.9 LIPOMA 05/16/2012 MIGUEL ANGEL PANDYA, YLOANDA R 719.43 PAIN- WRIST 05/16/2012 LELAND BROWN MD 214.9 LIPOMA 05/16/2012 LELAND BROWN MD 719.43 PAIN- WRIST 05/16/2012 MANCERA DO TRAVIS K 214.9 LIPOMA 05/16/2012 MANCERA DO TRAVIS K 719.43 PAIN- WRIST 06/09/2012 V58.69 MED ICATION HIGH RISK 06/09/2012 V58.69 MED ICATION HIGH RISK 06/09/2012 V58.69 MED ICATION HIGH RISK 06/09/2012 V58.69 MED ICATION HIGH RISK 06/09/2012 V58.69 MED ICATION HIGH RISK 06/09/2012 V58.69 MED ICATION HIGH RISK 06/09/2012 V58.69 MED ICATION HIGH RISK 06/09/2012 V58.69 MED ICATION HIGH RISK 06/09/2012 V58.69 MED ICATION HIGH RISK 06/09/2012 V58.69 MED ICATION HIGH RISK 06/09/2012 V58.69 MED ICATION HIGH RISK 06/09/2012 IBRAHIMA WATTS DO V58 .69 MEDICATION HIGH RISK 06/09/2012 JERRY PITT MD V58 .69 MEDICATION HIGH RISK 06/09/2012 MANCERA DO TRAVIS K V58.69 MEDICATION HIGH RISK 06/09/2012 MANCERA DO TRAVIS K V58.69 MEDICATION HIGH RISK 06/09/2012 MANCERA DO TRAVIS K V58.69 MEDICATION HIGH RISK 06/09/2012 MANCERA DO TRAVIS K V58.69 MEDICATION HIGH RISK 06/09/2012 SANTY VALLEJO APRN V58.69 MEDICATION HIGH RISK 06/09/2012 MANCERA DO TRAVIS K V58.69 MEDICATION HIGH RISK 06/09/2012 JERRY PITT MD V58 .69 MEDICATION HIGH RISK 06/09/2012 SANTY VALLEJO APRN V58.69 MEDICATION HIGH RISK 06/09/2012 JERRY PITT MD V58 .69 MEDICATION HIGH RISK 06/09/2012 SANTY VALLEJO APRN V58.69 MEDICATION HIGH RISK 06/09/2012 JERRY PITT MD V58 .69 MEDICATION HIGH RISK 06/09/2012 JERRY PITT MD V58 .69 MEDICATION HIGH RISK 06/09/2012 DIYA GODFREY APRN V58 .69 MEDICATION HIGH RISK 06/09/2012 JERRY PITT MD V58 .69 MEDICATION HIGH RISK 06/09/2012 DIYA GODFREY APRN V58 .69 MEDICATION HIGH RISK 06/09/2012 CALDERON MCGILL TRAVIS K V58.69 MEDICATION HIGH RISK 06/09/2012 BELINDA KHAN RN V58. 69 MEDICATION HIGH RISK 06/09/2012 ERIN DIEGO, BELINDA E V58. 69 MEDICATION HIGH RISK 06/09/2012 ERIN DIEGO, BELINDA E V58. 69 MEDICATION HIGH RISK 06/09/2012 YOANDY GUTIERREZ, JERRY Aldana V58 .69 MEDICATION HIGH RISK 06/09/2012 MIGUEL ANGEL PANDYA, YOLANDA R V58.69 MEDICATION HIGH RISK 06/09/2012 YOANDY GUTIERREZ, JERRY Aldana V58 .69 MEDICATION HIGH RISK 06/09/2012 YOLANAD MICHELLE APRN R V58.69 MEDICATION HIGH RISK 06/09/2012 KEVIN GUTIERREZ, LELAND V58.69 MEDICATION HIGH RISK 06/09/2012 HOLLY MANCERA DOA K V58.69 MEDICATION HIGH RISK 06/12/2012 V25.2 VASE CTOMY 06/12/2012 V25.2 VASE CTOMY 06/12/2012 V25.2 VASE CTOMY 06/12/2012 V25.2 VASE CTOMY 06/12/2012 V25.2 VASE CTOMY 06/12/2012 V25.2 VASE CTOMY 06/12/2012 V25.2 VASE CTOMY 06/12/2012 V25.2 VASE CTOMY 06/12/2012 V25.2 VASE CTOMY 06/12/2012 V25.2 VASE CTOMY 06/12/2012 V25.2 VASE CTOMY 06/12/2012 IBRAHIMA WATTS DO V25 .2 VASECTOMY 06/12/2012 JERRY PITT MD V25 .2 VASECTOMY 06/12/2012 HOLLY MANCERA DOA K V25.2 VASECTOMY 06/12/2012 CALDERON MCGILL TRAVIS K V25.2 VASECTOMY 06/12/2012 CALDERON MCGILL TRAVIS K V25.2 VASECTOMY 06/12/2012 CALDERON MCGILL TRAVIS K V25.2 VASECTOMY 06/12/2012 SANTY VALLEJO APRN V25.2 VASECTOMY 06/12/2012 HOLLY MANCERA DOA K V25.2 VASECTOMY 06/12/2012 JERRY PITT MD V25 .2 VASECTOMY 06/12/2012 SANTY VALLEJO APRN V25.2 VASECTOMY 06/12/2012 JERRY PITT MD V25 .2 VASECTOMY 06/12/2012 SANTY VALLEJO APRN V25.2 VASECTOMY 06/12/2012 YOANDY GUTIERREZ, JERRY Aldana V25 .2 VASECTOMY 06/12/2012 YOANDY GUTIERREZ, JERRY Aldana V25 .2 VASECTOMY 06/12/2012 BEKAH PANDYA, DIYA V25 .2 VASECTOMY 06/12/2012 YOANDY GUTIERREZ, JERRY Aldana V25 .2 VASECTOMY 06/12/2012 BEKAH PANDYA, DIYA V25 .2 VASECTOMY 06/12/2012 MANCERA DO, TRAVIS K V25.2 VASECTOMY 06/12/2012 ERIN RN, BELINDA E V25. 2 VASECTOMY 06/12/2012 ERIN RN, BELINDA E V25. 2 VASECTOMY 06/12/2012 ERIN DIEGO, BELINDA E V25. 2 VASECTOMY 06/12/2012 YOANDY GUTIERREZ, JERRY Aldana V25 .2 VASECTOMY 06/12/2012 MIGUEL ANGEL PANDYA, YOLANDA R V25.2 VASECTOMY 06/12/2012 YOANDY GUTIERREZ, JERRY Aldana V25 .2 VASECTOMY 06/12/2012 MIGUEL ANGEL PANDYA, YOLANDA R V25.2 VASECTOMY 06/12/2012 KEVIN GUTIERREZ, BASCYNDY V25.2 VASECTOMY 06/12/2012 MANCERA DO, TRAVIS K V25.2 VASECTOMY 07/28/2012 272.0 HYPERCHOLESTEROLEMIA 07/28/2012 272.0 HYPERCHOLESTEROLEMIA 07/28/2012 272.0 HYPERCHOLESTEROLEMIA 07/28/2012 272.0 HYPERCHOLESTEROLEMIA 07/28/2012 272.0 HYPERCHOLESTEROLEMIA 07/28/2012 272.0 HYPERCHOLESTEROLEMIA 07/28/2012 272.0 HYPERCHOLESTEROLEMIA 07/28/2012 IBRAHIMA WATTS DO F 272 .0 HYPERCHOLESTEROLEMIA 07/28/2012 JERRY PITT MD 272 .0 HYPERCHOLESTEROLEMIA 07/28/2012 MANCERA DO, TRAVIS K 272.0 HYPERCHOLESTEROLEMIA 07/28/2012 MANCERA DO, TRAVIS K 272.0 HYPERCHOLESTEROLEMIA 07/28/2012 MANCERA DO, TRAVIS K 272.0 HYPERCHOLESTEROLEMIA 07/28/2012 MANCERA DO, TRAVIS K 272.0 HYPERCHOLESTEROLEMIA 07/28/2012 SANTY VALLEJO APRN 272.0 HYPERCHOLESTEROLEMIA 07/28/2012 MANCERA DO, TRAVIS K 272.0 HYPERCHOLESTEROLEMIA 07/28/2012 JERRY PITT MD 272 .0 HYPERCHOLESTEROLEMIA 07/28/2012 SANTY VALLEJO APRN 272.0 HYPERCHOLESTEROLEMIA 07/28/2012 YOANDY GUTIERREZ, JERRY N 272 .0 HYPERCHOLESTEROLEMIA 07/28/2012 SANTY VALLEJO APRN 272.0 HYPERCHOLESTEROLEMIA 07/28/2012 YOANDY GUTIERREZ, JERRY N 272 .0 HYPERCHOLESTEROLEMIA 07/28/2012 YOANDY GUTIERREZ, JERRY N 272 .0 HYPERCHOLESTEROLEMIA 07/28/2012 BEKAH MEDICAL POLICY SPECIALIST, DIYA 272 .0 HYPERCHOLESTEROLEMIA 07/28/2012 YOANDY GUTIERREZ, JERRY N 272 .0 HYPERCHOLESTEROLEMIA 07/28/2012 BEKAH MEDICAL POLICY SPECIALIST, DIYA 272 .0 HYPERCHOLESTEROLEMIA 07/28/2012 MANCERA DO, TRAVIS K 272.0 HYPERCHOLESTEROLEMIA 07/28/2012 ERIN RN, BELINDA E 272. 0 HYPERCHOLESTEROLEMIA 07/28/2012 ERIN RN, BELINDA E 272. 0 HYPERCHOLESTEROLEMIA 07/28/2012 ERIN RN, BELINDA E 272. 0 HYPERCHOLESTEROLEMIA 07/28/2012 YOANDY GUTIERREZ, JERRY N 272 .0 HYPERCHOLESTEROLEMIA 07/28/2012 MIGUEL ANGEL PANDYA, YOLANDA R 272.0 HYPERCHOLESTEROLEMIA 07/28/2012 YOANDY GUTIERREZ, JERRY N 272 .0 HYPERCHOLESTEROLEMIA 07/28/2012 MIGUEL ANGEL VOGELN, YOLANDA R 272.0 HYPERCHOLESTEROLEMIA 07/28/2012 KEVIN GUTIERREZ, BASCYNDY 272.0 HYPERCHOLESTEROLEMIA 07/28/2012 MANCERA DO, TRAVIS K 272.0 HYPERCHOLESTEROLEMIA 08/03/2012 692.9 CONT ACT DERMATITIS AND OTHER ECZEMA UNSPECIFIED CAUSE 08/03/2012 698.9 UNSP ECIFIED PRURITIC DISORDER 08/03/[address] BITE NONVENOMOUS OF OTHER MULTIPLE AND UNSPECIFIED SITES WITHOUT INFECTION 08/03/2012 692.9 CONT ACT DERMATITIS AND OTHER ECZEMA UNSPECIFIED CAUSE 08/03/2012 698.9 UNSP ECIFIED PRURITIC DISORDER 08/03/[address] BITE NONVENOMOUS OF OTHER MULTIPLE AND UNSPECIFIED SITES WITHOUT INFECTION 08/03/2012 692.9 CONT ACT DERMATITIS AND OTHER ECZEMA UNSPECIFIED CAUSE 08/03/2012 698.9 UNSP ECIFIED PRURITIC DISORDER 08/03/[address] BITE NONVENOMOUS OF OTHER MULTIPLE AND UNSPECIFIED SITES WITHOUT INFECTION 08/03/2012 692.9 CONT ACT DERMATITIS AND OTHER ECZEMA UNSPECIFIED CAUSE 08/03/2012 698.9 UNSP ECIFIED PRURITIC DISORDER 08/03/[address] BITE NONVENOMOUS OF OTHER MULTIPLE AND UNSPECIFIED SITES WITHOUT INFECTION 08/03/2012 692.9 CONT ACT DERMATITIS AND OTHER ECZEMA UNSPECIFIED CAUSE 08/03/2012 698.9 UNSP ECIFIED PRURITIC DISORDER 08/03/[address] BITE NONVENOMOUS OF OTHER MULTIPLE AND UNSPECIFIED SITES WITHOUT INFECTION 08/03/2012 WERDER KARENA MCGILLEN F 692 .9 CONTACT DERMATITIS AND OTHER ECZEMA UNSPECIFIED CAUSE 08/03/2012 WERDER DO IBRAHIMA F 698 .9 UNSPECIFIED PRURITIC DISORDER 08/03/2012 WERDER DO, IBRAHIMA F 919 .4 INSECT BITE NONVENOMOUS OF OTHER MULTIPLE AND UNSPECIFIED SITES WITHOUT INFECTION 08/03/2012 JERRY PITT MD N 692 .9 CONTACT DERMATITIS AND OTHER ECZEMA UNSPECIFIED CAUSE 08/03/2012 JERRY PITT MD 698 .9 UNSPECIFIED PRURITIC DISORDER 08/03/2012 JERRY PITT MD N 919 .4 INSECT BITE NONVENOMOUS OF OTHER MULTIPLE AND [...] K 698.9 UNSPECIFIED PRURITIC DISORDER 08/03/2012 MANCERA DOHOLLYA K 919.4 INSECT BITE NONVENOMOUS OF OTHER MULTIPLE AND UNSPECIFIED SITES WITHOUT INFECTION 08/03/2012 SANTY VALLEJO APRN 692.9 CONTACT DERMATITIS AND OTHER ECZEMA UNSPECIFIED CAUSE 08/03/2012 SANTY VALLEJO APRN 698.9 UNSPECIFIED PRURITIC DISORDER 08/03/2012 SANTY VALLEJO APRN 919.4 INSECT BITE NONVENOMOUS OF OTHER MULTIPL E AND UNSPECIFIED SITES WITHOUT INFECTION 08/03/2012 MANCERA DOHOLLYA K 692.9 CONTACT DERMATITIS AND OTHER ECZEMA UNSPECIFIED CAUSE 08/03/2012 MANCERA DO, TRAVIS K 698.9 UNSPECIFIED PRURITIC DISORDER 08/03/2012 CALDERON DOHOLLYA K 919.4 INSECT BITE NONVENOMOUS OF OTHER MULTIPLE AND UNSPECIFIED SITES WITHOUT INFECTION 08/03/2012 JERRY PITT MD 692 .9 CONTACT DERMATITIS AND OTHER ECZEMA UNSPECIFIED CAUSE 08/03/2012 JERRY PITT MD 698 .9 UNSPECIFIED PRURITIC DISORDER 08/03/2012 JERRY PITT MD 919 .4 INSECT BITE NONVENOMOUS OF OTHER MULTIPLE AND UNSPECIFIED SITES WITHOUT INFECTION 08/03/2012 SANTY VALLEJO APRN 692.9 CONTACT DERMATITIS AND OTHER ECZEMA UNSPECIFIED CAUSE 08/03/2012 SANTY VALLEJO APRN 698.9 UNSPECIFIED PRURITIC DISORDER 08/03/2012 SANTY VALLEJO APRN 919.4 INSECT BITE NONVENOMOUS OF OTHER MULTIPL E AND UNSPECIFIED SITES WITHOUT INFECTION 08/03/2012 JERRY PITT MD 692 .9 CONTACT DERMATITIS AND OTHER ECZEMA UNSPECIFIED CAUSE 08/03/2012 JERRY PITT MD 698 .9 UNSPECIFIED PRURITIC DISORDER 08/03/2012 JERRY PITT MD N 919 .4 INSECT BITE NONVENOMOUS OF OTHER MULTIPLE AND UNSPECIFIED SITES WITHOUT INFECTION 08/03/2012 SANTY VALLEJO APRN 692.9 CONTACT DERMATITIS AND OTHER ECZEMA UNSPECIFIED CAUSE 08/03/2012 SANTY VALLEJO APRN 698.9 UNSPECIFIED PRURITIC DISORDER 08/03/2012 SANTY VALLEJO APRN 919.4 INSECT BITE NONVENOMOUS OF OTHER MULTIPL E AND UNSPECIFIED SITES WITHOUT INFECTION 08/03/2012 JERRY PITT MD N 692 .9 CONTACT DERMATITIS AND OTHER ECZEMA UNSPECIFIED CAUSE 08/03/2012 JERRY PITT MD 698 .9 UNSPECIFIED PRURITIC DISORDER 08/03/2012 JERRY PITT MD N 919 .4 INSECT BITE NONVENOMOUS OF OTHER MULTIPLE AND UNSPECIFIED SITES WITHOUT INFECTION 08/03/2012 JERRY PITT MD N 692 .9 CONTACT DERMATITIS AND OTHER ECZEMA UNSPECIFIED CAUSE 08/03/2012 JERRY PITT MD N 698 .9 UNSPECIFIED PRURITIC DISORDER 08/03/2012 JERRY PITT MD N 919 .4 INSECT BITE NONVENOMOUS OF OTHER MULTIPLE AND UNSPECIFIED SITES WITHOUT INFECTION 08/03/2012 BEKAH PANDYA, DIYA 692 .9 CONTACT DERMATITIS AND OTHER ECZEMA UNSPECIFIED CAUSE 08/03/2012 BEKAH MEDICAL POLICY SPECIALIST, DIYA 698 .9 UNSPECIFIED PRURITIC DISORDER 08/03/2012 BEKAH MEDICAL POLICY SPECIALIST, DIYA 919 .4 INSECT BITE NONVENOMOUS OF OTHER MULTIPLE AND UNSPECIFIED SITES WITHOUT INFECTION 08/03/2012 JERRY PITT MD N 692 .9 CONTACT DERMATITIS AND OTHER ECZEMA UNSPECIFIED CAUSE 08/03/2012 JERRY PITT MD N 698 .9 UNSPECIFIED PRURITIC DISORDER 08/03/2012 JERRY PITT MD N 919 .4 INSECT BITE NONVENOMOUS OF OTHER MULTIPLE AND UNSPECIFIED SITES WITHOUT INFECTION 08/03/2012 BEKAH MEDICAL POLICY SPECIALIST, DIYA 692 .9 CONTACT DERMATITIS AND OTHER ECZEMA UNSPECIFIED CAUSE 08/03/2012 BEKAH MEDICAL POLICY SPECIALIST, DIYA 698 .9 UNSPECIFIED PRURITIC DISORDER 08/03/2012 BEKAH MEDICAL POLICY SPECIALIST, DIYA 919 .4 INSECT BITE NONVENOMOUS OF OTHER MULTIPLE AND UNSPECIFIED SITES WITHOUT INFECTION 08/03/2012 TRAVIS MANCERA DO K 692.9 CONTACT DERMATITIS AND OTHER ECZEMA UNSPECIFIED CAUSE 08/03/2012 HOLLY MANCERA DOA K 698.9 UNSPECIFIED PRURITIC DISORDER 08/03/2012 CALDERON MCGILL TRAVIS K 919.4 INSECT BITE NONVENOMOUS OF OTHER MULTIPLE AND UNSPECIFIED SITES WITHOUT INFECTION 08/03/2012 ERIN DIEGO, BELINDA Swartz 692. 9 CONTACT DERMATITIS AND OTHER ECZEMA UNSPECIFIED CAUSE 08/03/2012 ERIN RN, BELINDA E 698. 9 UNSPECIFIED PRURITIC DISORDER 08/03/2012 ERIN RN, BELINDA E 919. 4 INSECT BITE NONVENOMOUS OF OTHER MULTIPLE AND UNSPECIFIED SITES WITHOUT INFECTION 08/03/2012 KHAN RN, BELINDA E 692. 9 CONTACT DERMATITIS AND OTHER ECZEMA UNSPECIFIED CAUSE 08/03/2012 KHAN RN, BELINDA E 698. 9 UNSPECIFIED PRURITIC DISORDER 08/03/2012 KHAN RN, BELINDA E 919. 4 INSECT BITE NONVENOMOUS OF OTHER MULTIPLE AND UNSPECIFIED SITES WITHOUT INFECTION 08/03/2012 KHAN RN, BELINDA E 692. 9 CONTACT DERMATITIS AND OTHER ECZEMA UNSPECIFIED CAUSE 08/03/2012 ERIN DIEGO, BELINDA E 698. 9 UNSPECIFIED PRURITIC DISORDER 08/03/2012 ERIN DIEGO, BELINDA E 919. 4 INSECT BITE NONVENOMOUS OF OTHER MULTIPLE AND UNSPECIFIED SITES WITHOUT INFECTION 08/03/2012 JERRY PITT MD N 692 .9 CONTACT DERMATITIS AND OTHER ECZEMA UNSPECIFIED CAUSE 08/03/2012 JERRY PITT MD N 698 .9 UNSPECIFIED PRURITIC DISORDER 08/03/2012 JERRY PITT MD N 919 .4 INSECT BITE NONVENOMOUS OF OTHER MULTIPLE AND UNSPECIFIED SITES WITHOUT INFECTION 08/03/2012 HIMANSHU MICHELLE APRNINA R 692.9 CONTACT DERMATITIS AND OTHER ECZEMA UNSPECIFIED CAUSE 08/03/2012 MIGUEL ANGEL PANDYA, YOLANDA R 698.9 UNSPECIFIED PRURITIC DISORDER 08/03/2012 MIGUEL ANGEL PANDYA YOLANDA R 919.4 INSECT BITE NONVENOMOUS OF OTHER MULTIPL E AND UNSPECIFIED SITES WITHOUT INFECTION 08/03/2012 JERRY PITT MD N 692 .9 CONTACT DERMATITIS AND OTHER ECZEMA UNSPECIFIED CAUSE 08/03/2012 JERRY PITT MD N 698 .9 UNSPECIFIED PRURITIC DISORDER 08/03/2012 JERRY PITT MD N 919 .4 INSECT BITE NONVENOMOUS OF OTHER MULTIPLE AND UNSPECIFIED SITES WITHOUT INFECTION 08/03/2012 MIGUEL ANGEL PANDYA, YOLANDA R 692.9 CONTACT DERMATITIS AND OTHER ECZEMA UNSPECIFIED CAUSE 08/03/2012 MIGUEL ANGEL PANDYA, YOLANDA R 698.9 UNSPECIFIED PRURITIC DISORDER 08/03/2012 MIGUEL ANGEL PANDYA, YOLANDA R 919.4 INSECT BITE NONVENOMOUS OF OTHER MULTIPL E AND UNSPECIFIED SITES WITHOUT INFECTION 08/03/2012 LELAND [...] AND UNSPECIFIED SITES WITHOUT INFECTION 08/17/2012 790.6 ABNO RMAL BLOOD CHEMISTRY 08/17/2012 790.6 ABNO RMAL BLOOD CHEMISTRY 08/17/2012 790.6 ABNO RMAL BLOOD CHEMISTRY 08/17/2012 790.6 ABNO RMAL BLOOD CHEMISTRY 08/17/2012 IBRAHIMA WATTS DO 790 .6 ABNORMAL BLOOD CHEMISTRY 08/17/2012 JERRY PITT MD 790 .6 ABNORMAL BLOOD CHEMISTRY 08/17/2012 MANCERA DO, TRAVIS K 790.6 ABNORMAL BLOOD CHEMISTRY 08/17/2012 MANCERA DO, TRAVIS K 790.6 ABNORMAL BLOOD CHEMISTRY 08/17/2012 MANCERA DO, TRAVIS K 790.6 ABNORMAL BLOOD CHEMISTRY 08/17/2012 MANCERA DO, TRAVIS K 790.6 ABNORMAL BLOOD CHEMISTRY 08/17/2012 SANTY VALLEJO APRN 790.6 ABNORMAL BLOOD CHEMISTRY 08/17/2012 MANCERA DO, TRAVIS K 790.6 ABNORMAL BLOOD CHEMISTRY 08/17/2012 JERRY PITT MD 790 .6 ABNORMAL BLOOD CHEMISTRY 08/17/2012 SANTY VALLEJO APRN 790.6 ABNORMAL BLOOD CHEMISTRY 08/17/2012 JERRY PITT MD 790 .6 ABNORMAL BLOOD CHEMISTRY 08/17/2012 SANTY VALLEJO APRN 790.6 ABNORMAL BLOOD CHEMISTRY 08/17/2012 JERRY PITT MD 790 .6 ABNORMAL BLOOD CHEMISTRY 08/17/2012 JERRY PITT MD 790 .6 ABNORMAL BLOOD CHEMISTRY 08/17/2012 ARTIE GODFREY APRNETTE 790 .6 ABNORMAL BLOOD CHEMISTRY 08/17/2012 JERRY PITT MD N 790 .6 ABNORMAL BLOOD CHEMISTRY 08/17/2012 DIYA GODFREY APRN 790 .6 ABNORMAL BLOOD CHEMISTRY 08/17/2012 HOLLY MANCERA DOA K 790.6 ABNORMAL BLOOD CHEMISTRY 08/17/2012 ERIN DIEGO, BELINDA E 790. 6 ABNORMAL BLOOD CHEMISTRY 08/17/2012 ERIN DIEGO, BELINDA E 790. 6 ABNORMAL BLOOD CHEMISTRY 08/17/2012 ERIN DIEGO, BELINDA E 790. 6 ABNORMAL BLOOD CHEMISTRY 08/17/2012 JERRY PITT MD N 790 .6 ABNORMAL BLOOD CHEMISTRY 08/17/2012 MIGUEL ANGEL PANDYA, YOLANDA R 790.6 ABNORMAL BLOOD CHEMISTRY 08/17/2012 JERRY PITT MD N 790 .6 ABNORMAL BLOOD CHEMISTRY 08/17/2012 MIGUEL ANGEL PANDYA, YOLANDA R 790.6 ABNORMAL BLOOD CHEMISTRY 08/17/2012 LELAND BROWN MD 790.6 ABNORMAL BLOOD CHEMISTRY 08/17/2012 TRAVIS MANCERA DO K 790.6 ABNORMAL BLOOD CHEMISTRY 10/24/2012 BIANCA CLAY APRN Ot 719.47 JOINT PAIN-ANKLE 11/03/2012 719.46 ISMAEL N IN JOINT INVOLVING LOWER LEG 11/03/2012 719.47 ISMAEL N IN JOINT INVOLVING ANKLE AND FOOT 11/03/2012 IBRAHIMA WATTS DO F 719 .46 PAIN IN JOINT INVOLVING LOWER LEG 11/03/2012 IBRAHIMA WATTS DO F 719 .47 PAIN IN JOINT INVOLVING ANKLE AND FOOT 11/03/2012 JERRY PITT MD N 719 .46 PAIN IN JOINT INVOLVING LOWER LEG 11/03/2012 JERRY PITT MD 719 .47 PAIN IN JOINT INVOLVING ANKLE AND FOOT [...] ANKLE AND FOOT 11/03/2012 JERRY PITT MD 719 .46 PAIN IN JOINT INVOLVING LOWER LEG 11/03/2012 JERRY PITT MD 719 .47 PAIN IN JOINT INVOLVING ANKLE AND FOOT 11/03/2012 SANTY VALLEJO APRN 719.46 PAIN IN JOINT INVOLVING LOWER LEG 11/03/2012 SANTY VALLEJO APRN 719.47 PAIN IN JOINT INVOLVING ANKLE AND FOOT 11/03/2012 JERRY PITT MD 719 .46 PAIN IN JOINT INVOLVING LOWER LEG 11/03/2012 JERRY PITT MD 719 .47 PAIN IN JOINT INVOLVING ANKLE AND FOOT 11/03/2012 SANTY VALLEJO APRN 719.46 PAIN IN JOINT INVOLVING LOWER LEG 11/03/2012 SANTY VALLEJO APRN 719.47 PAIN IN JOINT INVOLVING ANKLE AND FOOT 11/03/2012 JERRY PITT MD 719 .46 PAIN IN JOINT INVOLVING LOWER LEG 11/03/2012 JERRY PITT MD 719 .47 PAIN IN JOINT INVOLVING ANKLE AND FOOT 11/03/2012 JERRY PITT MD 719 .46 PAIN IN JOINT INVOLVING LOWER LEG 11/03/2012 JERRY PITT MD 719 .47 PAIN IN JOINT INVOLVING ANKLE AND FOOT 11/03/2012 DIYA GODFREY APRN 719 .46 PAIN IN JOINT INVOLVING LOWER LEG 11/03/2012 DIYA GODFREY APRN 719 .47 PAIN IN JOINT INVOLVING ANKLE AND FOOT 11/03/2012 JERRY PITT MD 719 .46 PAIN IN JOINT INVOLVING LOWER LEG 11/03/2012 JERRY PITT MD 719 .47 PAIN IN JOINT INVOLVING ANKLE AND FOOT 11/03/2012 DIYA GODFREY APRN 719 .46 PAIN IN JOINT INVOLVING LOWER LEG 11/03/2012 DIYA GODFREY APRN 719 .47 PAIN IN JOINT INVOLVING ANKLE AND FOOT 11/03/2012 TRAVIS MANCERA DO 719.46 PAIN IN JOINT INVOLVING LOWER LEG 11/03/2012 TRAVIS MANCERA DO 719.47 PAIN IN JOINT INVOLVING ANKLE AND FOOT 11/03/2012 BELINDA KHAN RN 719. 46 PAIN IN JOINT INVOLVING LOWER LEG 11/03/2012 BELINDA KHAN RN 719. 47 PAIN IN JOINT INVOLVING ANKLE AND FOOT 11/03/2012 BELINDA KHAN RN 719. 46 PAIN IN JOINT INVOLVING LOWER LEG 11/03/2012 BELINDA KHAN RN 719. 47 PAIN IN JOINT INVOLVING ANKLE AND FOOT 11/03/2012 BELINDA KHAN RN 719. 46 PAIN IN JOINT INVOLVING LOWER LEG 11/03/2012 BELINDA KHAN RN 719. 47 PAIN IN JOINT INVOLVING ANKLE AND FOOT 11/03/2012 JERRY PITT MD 719 .46 PAIN IN JOINT INVOLVING LOWER LEG 11/03/2012 JERRY PITT MD 719 .47 PAIN IN JOINT INVOLVING ANKLE AND FOOT 11/03/2012 YOLANDA MICHELLE APRN R 719.46 PAIN IN JOINT INVOLVING LOWER LEG 11/03/2012 YOLANDA MICHELLE APRN R 719.47 PAIN IN JOINT INVOLVING ANKLE AND FOOT 11/03/2012 JERRY PITT MD 719 .46 PAIN IN JOINT INVOLVING LOWER LEG 11/03/2012 JERRY PITT MD 719 .47 PAIN IN JOINT INVOLVING ANKLE AND FOOT [...] 786.50 CHEST PAIN 11/29/2012 JERRY PITT MD 729 .5 PAIN- LEG 11/29/2012 JERRY PITT MD 786 .50 CHEST PAIN 11/29/2012 SANTY VALLEJO APRN 729.5 PAIN- LEG 11/29/2012 SANTY VALLEJO APRN 786.50 CHEST PAIN 11/29/2012 JERRY PITT MD 729 .5 PAIN- LEG 11/29/2012 YOANDY MD, JERRY N 786 .50 CHEST PAIN 11/29/2012 SANTY VALLEJO APRN 729.5 PAIN- LEG 11/29/2012 SANTY VALLEJO APRN 786.50 CHEST PAIN 11/29/2012 JERRY PITT MD N 729 .5 PAIN- LEG 11/29/2012 JERRY PITT MD N 786 .50 CHEST PAIN 11/29/2012 JERRY PITT MD N 729 .5 PAIN- LEG 11/29/2012 JERRY PITT MD N 786 .50 CHEST PAIN 11/29/2012 BEKAH MEDICAL POLICY SPECIALIST, DIYA 729 .5 PAIN- LEG 11/29/2012 BEKAH MEDICAL POLICY SPECIALIST, DIYA 786 .50 CHEST PAIN 11/29/2012 JERRY PITT MD N 729 .5 PAIN- LEG 11/29/2012 JERRY PITT MD N 786 .50 CHEST PAIN 11/29/2012 BEKAH MEDICAL POLICY SPECIALIST, DIYA 729 .5 PAIN- LEG 11/29/2012 BEKAH MEDICAL POLICY SPECIALIST, DIYA 786 .50 CHEST PAIN 11/29/2012 MANCERA DO, TRAVIS K 729.5 PAIN- LEG 11/29/2012 MANCERA DO, TRAVIS K 786.50 CHEST PAIN 11/29/2012 ERIN DIEGO, BELINDA E 729. 5 PAIN- LEG 11/29/2012 ERIN DIEGO, BELINDA E 786. 50 CHEST PAIN 11/29/2012 ERIN DIEGO, BELINDA E 729. 5 PAIN- LEG 11/29/2012 BELINDA KHAN RN E 786. 50 CHEST PAIN 11/29/2012 ERIN DIEGO, BELINDA E 729. 5 PAIN- LEG 11/29/2012 ERIN DIEGO, BELINDA E 786. 50 CHEST PAIN 11/29/2012 JERRY PITT MD N 729 .5 PAIN- LEG 11/29/2012 JERRY PITT MD N 786 .50 CHEST PAIN 11/29/2012 HIMANSHU MICHELLE APRNINA R 729.5 PAIN- LEG 11/29/2012 HIMANSHU MICHELLE APRNINA R 786.50 CHEST PAIN 11/29/2012 JERRY PITT MD N 729 .5 PAIN- LEG 11/29/2012 JERRY PITT MD N 786 .50 CHEST PAIN 11/29/2012 MIGUEL ANGEL PANDAY YOLANDA R 729.5 PAIN- LEG 11/29/2012 YOLANDA MICHELLE APRN R 786.50 CHEST PAIN 11/29/2012 LELAND BROWN [...] VASCULAR DISEASE UNSPECIFIED 12/12/2012 JERRY PITT MD 443 .9 PERIPHERAL VASCULAR DISEASE UNSPECIFIED 12/12/2012 SANTY VALLEJO APRN 443.9 PERIPHERAL VASCULAR DISEASE UNSPECIFIED 12/12/2012 JERRY PITT MD 443 .9 PERIPHERAL VASCULAR DISEASE UNSPECIFIED 12/12/2012 SANTY VALLEJO APRN 443.9 PERIPHERAL VASCULAR DISEASE UNSPECIFIED 12/12/2012 JERRY PITT MD 443 .9 PERIPHERAL VASCULAR DISEASE UNSPECIFIED 12/12/2012 JERRY PITT MD 443 .9 PERIPHERAL VASCULAR DISEASE UNSPECIFIED 12/12/2012 DIYA GODFREY APRN 443 .9 PERIPHERAL VASCULAR DISEASE UNSPECIFIED 12/12/2012 JERRY PITT MD 443 .9 PERIPHERAL VASCULAR DISEASE UNSPECIFIED 12/12/2012 DIYA GODFREY APRN 443 .9 PERIPHERAL VASCULAR DISEASE UNSPECIFIED 12/12/2012 MANCERA DO TRAVIS K 443.9 PERIPHERAL VASCULAR DISEASE UNSPECIFIED 12/12/2012 BELINDA KHAN RN 443. 9 PERIPHERAL VASCULAR DISEASE UNSPECIFIED 12/12/2012 BELINDA KHAN RN 443. 9 PERIPHERAL VASCULAR DISEASE UNSPECIFIED 12/12/2012 BELINDA KHAN RN E 443. 9 PERIPHERAL VASCULAR DISEASE UNSPECIFIED 12/12/2012 JERRY PITT MD 443 .9 PERIPHERAL VASCULAR DISEASE UNSPECIFIED 12/12/2012 YOLANDA MICHELLE APRN 443.9 PERIPHERAL VASCULAR DISEASE UNSPECIFIED 12/12/2012 JERRY PITT MD 443 .9 PERIPHERAL VASCULAR DISEASE UNSPECIFIED 12/12/2012 YOLANDA MICHELLE APRN 443.9 PERIPHERAL VASCULAR DISEASE UNSPECIFIED 12/12/2012 LELAND BROWN MD 443.9 PERIPHERAL VASCULAR DISEASE UNSPECIFIED 12/12/2012 HOLLY MANCERA DOA K 443.9 PERIPHERAL VASCULAR DISEASE UNSPECIFIED 12/28/2012 HOLLY MANCERA DOA K 715.96 OSTEOARTHROSIS UNSPECIFIED WHETHER GENERALIZED OR LOCALIZED INVOLVING LOWER LEG 12/28/2012 SANYT VALLEJO APRN 715.96 OSTEOARTHROSIS UNSPECIFIED WHETHER GENER ALIZED OR LOCALIZED INVOLVING LOWER LEG 12/28/2012 TRAVIS MANCERA DO 715.96 OSTEOARTHROSIS UNSPECIFIED WHETHER GENERALIZED OR LOCALIZED INVOLVING LOWER LEG 12/28/2012 JERRY PITT MD 715 .96 OSTEOARTHROSIS UNSPECIFIED WHETHER GENERALIZED OR LOCALIZED INVOLVING LOWER LEG 12/28/2012 SANTY VALLEJO APRN 715.96 OSTEOARTHROSIS UNSPECIFIED WHETHER GENER ALIZED OR LOCALIZED INVOLVING LOWER LEG 12/28/2012 JERRY PITT MD 715 .96 OSTEOARTHROSIS UNSPECIFIED WHETHER GENERALIZED OR LOCALIZED INVOLVING LOWER LEG 12/28/2012 SANTY VALLEJO APRN 715.96 OSTEOARTHROSIS UNSPECIFIED WHETHER GENER ALIZED OR LOCALIZED INVOLVING LOWER LEG 12/28/2012 JERRY PITT MD 715 .96 OSTEOARTHROSIS UNSPECIFIED WHETHER GENERALIZED OR LOCALIZED INVOLVING LOWER LEG 12/28/2012 JERRY PITT MD 715 .96 OSTEOARTHROSIS UNSPECIFIED WHETHER GENERALIZED OR LOCALIZED INVOLVING LOWER LEG 12/28/2012 DIYA GODFREY APRN 715 .96 OSTEOARTHROSIS UNSPECIFIED WHETHER GENERALIZED OR LOCALIZED INVOLVING LOWER LEG 12/28/2012 JERRY PITT MD 715 .96 OSTEOARTHROSIS UNSPECIFIED WHETHER GENERALIZED OR LOCALIZED INVOLVING LOWER LEG 12/28/2012 DIYA GODFREY APRN 715 .96 OSTEOARTHROSIS UNSPECIFIED WHETHER GENERALIZED OR LOCALIZED INVOLVING LOWER LEG 12/28/2012 TRAVIS MANCERA DO 715.96 OSTEOARTHROSIS UNSPECIFIED WHETHER GENERALIZED OR LOCALIZED INVOLVING LOWER LEG 12/28/2012 ERIN DIEGO, BELINDA Swartz 715. 96 OSTEOARTHROSIS UNSPECIFIED WHETHER GENERALIZED OR LOCALIZED INVOLVING LOWER LEG 12/28/2012 ERIN DIEGO, BELINDA E 715. 96 OSTEOARTHROSIS UNSPECIFIED WHETHER GENERALIZED OR LOCALIZED INVOLVING LOWER LEG 12/28/2012 BELINDA KHAN RN E 715. 96 OSTEOARTHROSIS UNSPECIFIED WHETHER GENERALIZED OR LOCALIZED INVOLVING LOWER LEG 12/28/2012 JERRY PITT MD 715 .96 OSTEOARTHROSIS UNSPECIFIED WHETHER GENERALIZED OR LOCALIZED INVOLVING LOWER LEG 12/28/2012 YOLANDA MICHELLE APRN R 715.96 OSTEOARTHROSIS UNSPECIFIED WHETHER GENER ALIZED OR LOCALIZED INVOLVING LOWER LEG 12/28/2012 JERRY PITT MD 715 .96 OSTEOARTHROSIS UNSPECIFIED WHETHER GENERALIZED OR LOCALIZED INVOLVING LOWER LEG 12/28/2012 YOLANDA MICHELLE APRN R 715.96 OSTEOARTHROSIS UNSPECIFIED WHETHER GENER ALIZED OR LOCALIZED INVOLVING LOWER LEG 12/28/2012 LELAND BROWN MD 715.96 OSTEOARTHROSIS UNSPECIFIED WHETHER GENERALIZED OR LOCALIZED INVOLVING LOWER LEG 12/28/2012 MANCERA DO, TRAVIS K 715.96 OSTEOARTHROSIS UNSPECIFIED WHETHER GENERALIZED OR LOCALIZED INVOLVING LOWER LEG 01/26/2013 HOLLY MANCERA DOA K 272.4 DYSLIPIDEMIA 01/26/2013 HOLLY MANCERA DOA K 401.9 HYPERTENSION, UNSPECIFIED ESSENTIAL 01/26/2013 CALDERON MCGILL TRAVIS K 414.00 CAD 01/26/2013 MANCERA DO TRAVIS K 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 01/26/2013 JERRY PITT MD N 272 .4 DYSLIPIDEMIA 01/26/2013 JERRY PITT MD 401 .9 HYPERTENSION, UNSPECIFIED ESSENTIAL 01/26/2013 JERRY PITT MD N 414 .00 CAD 01/26/2013 JERRY PITT MD N 434 .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 01/26/2013 SANTY VALLEJO APRN 272.4 DYSLIPIDEMIA 01/26/2013 SANTY VALLEJO APRN 401.9 HYPERTENSION, UNSPECIFIED ESSENTIAL 01/26/2013 SANTY VALLEJO APRN 414.00 CAD 01/26/2013 SANTY VALLEJO APRN 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 01/26/2013 JERRY PITT MD N 272 .4 DYSLIPIDEMIA 01/26/2013 JERRY PITT MD N 401 .9 HYPERTENSION, UNSPECIFIED ESSENTIAL 01/26/2013 JERRY PITT MD N 414 .00 CAD 01/26/2013 JERRY PITT MD N 434 .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 01/26/2013 SANTY VALLEJO APRN 272.4 DYSLIPIDEMIA 01/26/2013 SANTY VALLEJO APRN 401.9 HYPERTENSION, UNSPECIFIED ESSENTIAL 01/26/2013 SANTY VALLEJO APRN 414.00 CAD 01/26/2013 SANTY VALLEJO APRN 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 01/26/2013 JERRY PITT MD N 272 .4 DYSLIPIDEMIA 01/26/2013 JERRY PITT MD N 401 .9 HYPERTENSION, UNSPECIFIED ESSENTIAL 01/26/2013 JERRY PITT MD N 414 .00 CAD 01/26/2013 JERRY PITT MD N 434 .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 01/26/2013 JERRY PITT MD N 272 .4 DYSLIPIDEMIA 01/26/2013 JERRY PITT MD N 401 .9 HYPERTENSION, UNSPECIFIED ESSENTIAL 01/26/2013 JERRY PITT MD N 414 .00 CAD 01/26/2013 JERRY PITT MD N 434 .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 01/26/2013 BEKAHKAREN PANDYA, DIYA 272 .4 DYSLIPIDEMIA 01/26/2013 BEKAH PANDYA DIYA 401 .9 HYPERTENSION, UNSPECIFIED ESSENTIAL 01/26/2013 BEKAH MEDICAL POLICY SPECIALIST, DIYA 414 .00 CAD 01/26/2013 BEKAH MEDICAL POLICY SPECIALIST, DIYA 434 .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 01/26/2013 JERRY PITT MD N 272 .4 DYSLIPIDEMIA 01/26/2013 JERRY PITT MD N 401 .9 HYPERTENSION, UNSPECIFIED ESSENTIAL 01/26/2013 JERRY PITT MD N 414 .00 CAD 01/26/2013 JERRY PITT MD N 434 .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 01/26/2013 BEKAH MEDICAL POLICY SPECIALIST, DIYA 272 .4 DYSLIPIDEMIA 01/26/2013 BEKAH MEDICAL POLICY SPECIALIST, DIYA 401 .9 HYPERTENSION, UNSPECIFIED ESSENTIAL 01/26/2013 BEKAH MEDICAL POLICY SPECIALIST, DIYA 414 .00 CAD 01/26/2013 BEKAH MEDICAL POLICY SPECIALIST, DIYA 434 .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 01/26/2013 MANCERA DO, TRAVIS K 272.4 DYSLIPIDEMIA 01/26/2013 MANCERA DO, TRAVIS K 401.9 HYPERTENSION, UNSPECIFIED ESSENTIAL 01/26/2013 MANCERA DO, TRAVIS K 414.00 CAD 01/26/2013 MANCERA DO, TRAVIS K 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 01/26/2013 KHAN RN, BELINDA E 272. 4 DYSLIPIDEMIA 01/26/2013 ERIN RN, BELINDA E 401. 9 HYPERTENSION, UNSPECIFIED ESSENTIAL 01/26/2013 ERIN RN, BELINDA E 414. 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 01/26/2013 KHAN RN, BELINDA E 272. 4 DYSLIPIDEMIA 01/26/2013 KHAN RN, BELINDA E 401. 9 HYPERTENSION, UNSPECIFIED ESSENTIAL 01/26/2013 KHAN RN, BELINDA E 414. 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 01/26/2013 ERIN RN, BELINDA E 272. 4 DYSLIPIDEMIA 01/26/2013 ERIN RN, BELINDA E 401. 9 HYPERTENSION, UNSPECIFIED ESSENTIAL 01/26/2013 ERIN RN, BELINDA E 414. 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 01/26/2013 JERRY PITT MD N 272 .4 DYSLIPIDEMIA 01/26/2013 JERRY PITT MD N 401 .9 HYPERTENSION, UNSPECIFIED ESSENTIAL 01/26/2013 JERRY PITT MD N 414 .00 CAD 01/26/2013 JERRY PITT MD N 434 .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 01/26/2013 MIGUEL ANGEL PANDYA, YOLANDA R 272.4 DYSLIPIDEMIA 01/26/2013 MIGUEL ANGEL PANDYA, YOLANDA R 401.9 HYPERTENSION, UNSPECIFIED ESSENTIAL 01/26/2013 MIGUEL ANGEL PANDYA, YOLANDA R 414.00 CAD 01/26/2013 HIMANSHU MICHELLE APRNINA R 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 01/26/2013 LELAND BROWN MD 272.4 DYSLIPIDEMIA 01/26/2013 KEVIN GUTIERREZ, LELAND 401.9 HYPERTENSION, UNSPECIFIED ESSENTIAL 01/26/2013 LELAND BROWN MD 414.00 CAD 01/26/2013 LELAND BROWN MD 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 01/26/2013 MANCERA DO, TRAVIS K 272.4 DYSLIPIDEMIA 01/26/2013 MANCERA DO, TRAVIS K 401.9 HYPERTENSION, UNSPECIFIED ESSENTIAL 01/26/2013 MANCERA DO, TRVAIS K 414.00 CAD 01/26/2013 MANCERA DO, TRAVIS K 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 00 AN ANXIETY UNSPEC 05/01/2013 BELINDA KHAN RN 300. 00 AN ANXIETY UNSPEC 05/01/2013 BELINDA KHAN RN 300. 00 AN ANXIETY UNSPEC 05/01/2013 JERRY PITT MD 300 .00 AN ANXIETY UNSPEC 05/01/2013 YOLANDA MICHELLE APRN R 300.00 AN ANXIETY UNSPEC 05/01/2013 JERRY PITT MD 300 .00 AN ANXIETY UNSPEC 05/01/2013 YOLANDA MICHELLE APRN R 300.00 AN ANXIETY UNSPEC 05/01/2013 LELAND BROWN MD 300.00 AN ANXIETY UNSPEC 05/01/2013 TRAVIS MANCERA DO 300.00 AN ANXIETY UNSPEC 10/11/2013 LEOBARDO GUTIERREZ, FRANKIE Benson Ot 272.4 HYPERLIPIDEMIA NEC/NOS 10/11/2013 LEOBARDO GUTIERREZ, FRANKIE Benson Ot 296.80 BIPOLAR DISORDER, UNSPECIFIED 10/11/2013 FRANKIE BOOTH MD Ot 305.1 TOBACCO USE DISORDER 10/11/2013 FRANKIE BOOTH MD Ot 401.9 HYPERTENSION NOS 10/11/2013 FRANKIE BOOTH MD Ot 41 2 OLD MYOCARDIAL INFARCT 10/11/2013 FRANKIE BOOTH MD Ot 440.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 [place] ARTERIES EXTREMIT 10/11/2013 FRANKIE BOOTH MD Ot 729.5 PAIN IN LIMB 10/11/2013 FRANKIE BOOTH MD Ot V58.69 OTH MED,LT,CURRENT USE 12/14/2013 JERRY PITT MD V04 .81 FLU SHOT 12/14/2013 YOLANDA MICHELLE APRN R V04.81 FLU SHOT 12/14/2013 JERRY PITT MD V04 .81 FLU SHOT 12/14/2013 YOLANDA MICHELLE APRN R V04.81 FLU SHOT 12/14/2013 LELAND BROWN MD V04.81 FLU SHOT 12/14/2013 TRAVIS MANCERA DO V04.81 FLU SHOT 02/26/2014 YOLANDA MICHELLE APRN R 788.41 URINARY FREQUENCY 02/26/2014 JERRY PITT MD 788 .41 URINARY FREQUENCY 02/26/2014 YOLANDA MICHELLE APRN R 788.41 URINARY FREQUENCY 02/26/2014 LELAND BROWN MD 788.41 URINARY FREQUENCY 02/26/2014 TRAVIS MANCERA DO 788.41 URINARY FREQUENCY 04/26/2014 Ot 272.4 HYPE RLIPIDEMIA NEC/NOS 04/26/2014 Ot 296.80 BIP OLAR DISORDER, UNSPECIFIED 04/26/2014 Ot 305.1 TOBA WRITING MANAGER USE DISORDER 04/26/2014 Ot 401.9 HYPE RTENSION NOS 04/26/2014 Ot 412 OLD MY OCARDIAL INFARCT 04/26/2014 Ot 440.20 ATH EROSCLEROSIS [place] ARTERIES EXTREMIT 04/26/2014 Ot 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 04/26/2014 Ot V58.69 OTH MED,LT,CURRENT USE 05/10/2014 KEVIN GUTIERREZ, LELAND 401.1 HYPERTENSION, BENIGN ESSENTIAL 05/10/2014 TRAVIS MANCERA DO 401.1 HYPERTENSION, BENIGN ESSENTIAL 06/06/2014 Ot 728.82 06/06/2014 Ot V72.63 06/06/2014 Ot V72.81 06/06/2014 Ot V74.8 06/06/2014 YOANDY GUTIERREZ, JERRY Aldana Ot 729 .5 06/06/2014 BERG-MILLY PA, JACE K Ot 272.4 06/06/2014 BERG-MILLY PA, JACE K Ot 401.9 06/06/2014 BERG-MILLY PA, JACE K Ot 414.00 06/06/2014 BERG-MILLY PA, JACE K Ot 434.91 06/06/2014 BERG-MILLY PA, JACE K Ot 786.09 06/06/2014 BERG-MILLY PA, JACE K Ot 786.50 06/06/2014 BERG-MILLY PA, JACE K Ot 397.0 06/06/2014 BERG-MILLY PA, JACE K Ot 401.9 06/06/2014 BERG-MILLY PA, JACE K Ot 414.00 06/06/2014 BERG-MILLY PA, JACE K Ot 424.0 06/06/2014 BERG-MILLY PA, JACE K Ot 786.50 06/10/2014 LEOBARDO GUTIERREZ, FRANKIE S Ot 211.3 06/10/2014 LEOBARDO GUTIERREZ, FRAKNIE S Ot V16.0 06/10/2014 LEOBARDO GUTIERREZ, FRANKIE [...] FB GRANULOMA OF MUSCLE 06/23/2015 Ot V72.63 PRE -PROCEDURAL LABORATORY EXAMINATION 06/23/2015 Ot V72.81 [id number] CARDIOVASCULAR 06/23/2015 Ot V74.8 SCRE EN-BACTERIAL DIS NEC 06/23/2015 JERRY PITT MD Ot 729 .5 PAIN IN LIMB 06/23/2015 JACE CORDOVA Ot [...] CORDOVA Ot 397.0 TRICUSPID VALVE DISEASE 06/23/2015 JCAE CORDOVA Ot 401.9 HYPERTENSION NOS 06/23/2015 JACE CORDOVA Ot 414.00 CORON ATHEROSCLER NOS TYPE VESSEL, NATIV 06/23/2015 JACE CORDOVA Ot 424.0 MITRAL VALVE DISORDER 06/23/2015 JACE CORDOVA Ot 786.50 CHEST PAIN NOS 06/23/2015 LEOBARDO GUTIERREZ, FRANKIE Benson Ot 211.3 BENIGN NEOPLASM LG BOWEL 06/23/2015 LEOBARDO GUTIERREZ, FRANKIE Benson Ot V16.0 FAMILY HX-GI MALIGNANCY 06/23/2015 LEOBARDO GUTIERREZ, FRANKIE Benson Ot V76.51 SCREEN MAL NEOP-COLON 06/23/2015 FRANKIE BOOTH MD Ot V72.84 EXAM PRE-OPERATIVE NOS 06/24/2015 LELADN BROWN MD Ot E78. 5 HYPERLIPIDEMIA, UNSPECIFIED 06/24/2015 LELAND BROWN MD Ot I21. 3 ST ELEVATION (STEMI) MYOCARDIAL INFARCTI 06/24/2015 LELAND BROWN MD Ot I73. 9 PERIPHERAL VASCULAR DISEASE, UNSPECIFIED 06/24/2015 LELAND BROWN MD Ot Z82. 49 FAMILY HX OF ISCHEM HEART DIS AND OTH DI 06/25/2015 LELAND BROWN MD Ot E78. 5 HYPERLIPIDEMIA, UNSPECIFIED 06/25/2015 LELAND BROWN MD Ot I21. 3 ST ELEVATION (STEMI) MYOCARDIAL INFARCTI 06/25/2015 LELAND BROWN MD Ot I73. 9 PERIPHERAL VASCULAR DISEASE, UNSPECIFIED 06/25/2015 LELAND BROWN MD Ot Z82. 49 FAMILY HX OF ISCHEM HEART DIS AND OTH DI 06/26/2015 LELAND BROWN MD Ot E78. 5 HYPERLIPIDEMIA, UNSPECIFIED 06/26/2015 LELAND BROWN MD Ot I10 ESSENTIAL (PRIMARY) HYPERTENSION 06/26/2015 LELAND BROWN MD Ot I25. 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 0 TOBACCO USE 06/26/2015 LELAND BROWN MD Ot Z79.899 OTHER PICK UP MAN (CURRENT) DRUG THERAPY 06/29/2015 LELAND BROWN MD Ot E78. 5 HYPERLIPIDEMIA, UNSPECIFIED 06/29/2015 LELAND BROWN MD Ot I21. 3 ST ELEVATION (STEMI) MYOCARDIAL INFARCTI 06/29/2015 LELAND BROWN MD Ot I73. 9 PERIPHERAL VASCULAR DISEASE, UNSPECIFIED 06/29/2015 LELAND BROWN MD Ot Z82. 49 FAMILY HX OF ISCHEM HEART DIS AND OTH DI 07/10/2015 LELAND BROWN MD Ot E78. 5 HYPERLIPIDEMIA, UNSPECIFIED 07/10/2015 LELAND BROWN MD Ot I21. 3 ST ELEVATION (STEMI) MYOCARDIAL INFARCTI 07/10/2015 LELAND BROWN MD Ot I73. 9 PERIPHERAL VASCULAR DISEASE, UNSPECIFIED 07/10/2015 LELAND BROWN MD Ot Z82. 49 FAMILY HX OF ISCHEM HEART DIS AND OTH DI 07/14/2015 LELAND BROWN MD Ot E78. 5 HYPERLIPIDEMIA, UNSPECIFIED 07/14/2015 LELAND BROWN MD Ot I10 ESSENTIAL (PRIMARY) HYPERTENSION 07/14/2015 LELAND BROWN MD Ot I25. 2 OLD MYOCARDIAL INFARCTION 07/14/2015 LELAND BROWN MD Ot 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 [place] ARTERIES OF EXTREMITI 07/14/2015 KEVIN GUTIERREZ, LELAND Herndon Ot Z72. 0 TOBACCO USE 07/14/2015 KEVIN GUTIERREZ, LELAND Herndon Ot Z79.899 OTHER PICK UP MAN (CURRENT) DRUG THERAPY 04/26/2016 Ot 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 04/26/2016 Ot V72.63 PRE -PROCEDURAL LABORATORY EXAMINATION 04/26/2016 Ot V72.81 [id number] CARDIOVASCULAR 04/26/2016 Ot V74.8 SCRE EN-BACTERIAL DIS NEC 04/26/2016 JERRY PITT MD Ot 729 .5 PAIN IN LIMB 04/26/2016 JACE CORDVOA Ot 272.4 HYPERLIPIDEMIA NEC/NOS 04/26/2016 JACE CORDOVA [...] CORDOVA Ot 786.50 CHEST PAIN NOS 04/26/2016 FRANKIE BOOTH MD Ot 211.3 BENIGN NEOPLASM LG BOWEL 04/26/2016 FRANKIE BOOTH MD Ot V16.0 FAMILY HX-GI MALIGNANCY 04/26/2016 FRANKIE BOOTH MD Ot V76.51 SCREEN MAL NEOP-COLON 04/26/2016 FRANKIE BOOTH MD Ot V72.84 EXAM PRE-OPERATIVE NOS 04/26/2016 LELAND BROWN MD Ot E78. 5 HYPERLIPIDEMIA, UNSPECIFIED 04/26/2016 LELAND BROWN MD Ot I21. 3 ST ELEVATION (STEMI) MYOCARDIAL INFARCTI 04/26/2016 LELAND BROWN MD Ot I73. 9 PERIPHERAL VASCULAR DISEASE, UNSPECIFIED 04/26/2016 LELAND BROWN MD Ot Z82. 49 FAMILY HX OF ISCHEM HEART DIS AND OTH DI 05/07/2016 JERRY PITT MD Ot F17.210 NICOTINE DEPENDENCE, CIGARETTES, UNCOMPL 05/07/2016 JERRY PITT MD Ot I10 ESSENTIAL (PRIMARY) HYPERTENSION 09/22/2016 Ot 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 09/22/2016 Ot V72.63 PRE -PROCEDURAL LABORATORY EXAMINATION 09/22/2016 Ot V72.81 [id number] CARDIOVASCULAR 09/22/2016 Ot V74.8 SCRE EN-BACTERIAL DIS NEC 09/22/2016 JERRY PITT MD Ot 729 .5 PAIN IN LIMB 09/22/2016 JACE CORDOVA Ot [...] MD Ot V16.0 FAMILY HX-GI MALIGNANCY 09/22/2016 LEOBARDO GUTIERREZ, FRANKIE S Ot V76.51 SCREEN MAL NEOP-COLON 09/22/2016 LEOBARDO GUTIERREZ, FRANKIE S Ot V72.84 EXAM PRE-OPERATIVE NOS 09/22/2016 LELAND BROWN MD Ot E78. 5 HYPERLIPIDEMIA, UNSPECIFIED 09/22/2016 LELAND BROWN MD Ot I21. 3 ST ELEVATION (STEMI) MYOCARDIAL INFARCTI 09/22/2016 LELAND BROWN MD Ot I73. 9 PERIPHERAL VASCULAR DISEASE, UNSPECIFIED 09/22/2016 LELAND BROWN MD Ot Z82. 49 FAMILY HX OF ISCHEM HEART DIS AND OTH DI 09/22/2016 YOANDY GUTIERREZ, JERRY Aldana Ot F17.210 NICOTINE DEPENDENCE, CIGARETTES, UNCOMPL 09/22/2016 JERRY PITT MD Ot I10 ESSENTIAL (PRIMARY) HYPERTENSION 10/05/2016 LELAND BROWN MD Ot E78. 2 MIXED HYPERLIPIDEMIA 10/05/2016 LELAND BROWN MD Ot I10 ESSENTIAL (PRIMARY) HYPERTENSION 10/05/2016 LELAND BROWN MD Ot I63. 9 CEREBRAL INFARCTION, UNSPECIFIED 10/05/2016 LELAND BROWN MD Ot I73. 9 PERIPHERAL VASCULAR DISEASE, UNSPECIFIED 10/05/2016 LELAND BROWN MD Ot Z72. 0 TOBACCO USE 10/16/2016 LELAND BROWN MD Ot E78. 2 MIXED HYPERLIPIDEMIA 10/16/2016 LELAND BROWN MD Ot I10 ESSENTIAL (PRIMARY) HYPERTENSION 10/16/2016 LELAND BROWN MD Ot I63. 9 CEREBRAL INFARCTION, UNSPECIFIED 10/16/2016 LELAND BROWN MD Ot I73. 9 PERIPHERAL VASCULAR DISEASE, UNSPECIFIED 10/16/2016 LELAND BROWN MD Ot Z72. 0 TOBACCO USE 10/16/2016 LELAND BROWN MD Ot E78. 2 MIXED HYPERLIPIDEMIA 10/16/2016 LELAND BROWN MD Ot I10 ESSENTIAL (PRIMARY) HYPERTENSION 10/16/2016 LELAND BROWN MD Ot I63. 9 CEREBRAL INFARCTION, UNSPECIFIED 10/16/2016 LELAND BROWN MD Ot I73. 9 PERIPHERAL VASCULAR DISEASE, UNSPECIFIED 10/16/2016 LELAND BROWN MD Ot Z72. 0 TOBACCO USE 11/18/2016 JERRY PITT MD Ot R91 .8 OTHER NONSPECIFIC ABNORMAL FINDING OF [place] 01/07/2017 BIANCA CLAY APRN Ot F17.200 NICOTINE DEPENDENCE, UNSPECIFIED, UNCOMP 01/07/2017 BIANCA CLAY APRN Ot I25.10 ATHSCL HEART DISEASE OF [place] CORONARY 01/07/2017 BIANCA CLAY APRN Ot I25 .2 OLD MYOCARDIAL INFARCTION 01/07/2017 BIANCA CLAY APRN Ot M54 .2 CERVICALGIA 01/07/2017 BIANCA CLAY APRN Ot S16.1XXA STRAIN OF MUSCLE, FASCIA AND TENDON AT N 01/07/2017 BIANCA CLAY APRN Ot V63.6XXA PASNGR IN HV VEH INJ PICK-UP TRUCK, PK-U 01/07/2017 BIANCA CLAY APRN Ot Y92.[address] 01/07/2017 BIANCA CLAY APRN Ot Z79.82 JAIL (CURRENT) USE OF ASPIRIN 01/07/2017 BIANCA CLAY APRN Ot Z98.52 VASECTOMY STATUS 02/24/2017 JERRY PITT MD Ot E78 .5 HYPERLIPIDEMIA, UNSPECIFIED 02/24/2017 JERRY PITT MD Ot F17.210 NICOTINE DEPENDENCE, CIGARETTES, UNCOMPL 02/24/2017 JERRY PITT MD Ot F25 .0 SCHIZOAFFECTIVE DISORDER, BIPOLAR TYPE 02/24/2017 JERRY PITT MD Ot I10 ESSENTIAL (PRIMARY) HYPERTENSION 02/24/2017 JERRY PITT MD Ot I65.23 OCCLUSION AND STENOSIS OF BILATERAL [place] 02/24/2017 JERRY PITT MD Ot I70 .0 ATHEROSCLEROSIS OF [place] 02/24/2017 JERRY PITT MD Ot I70.201 UNSP ATHSCL [place] ARTERIES OF EXTREMITI 02/24/2017 JERRY PITT MD Ot Z79.82 PICK UP MAN (CURRENT) USE OF ASPIRIN 02/24/2017 JERRY PITT MD Ot Z79.899 OTHER PICK UP MAN (CURRENT) DRUG THERAPY 02/24/2017 JERRY PITT MD Ot Z91.14 PATIENT'S OTHER NONCOMPLIANCE WITH MEDIC 02/24/2017 YOANDY MD, JERRY N Ot E78 .5 HYPERLIPIDEMIA, UNSPECIFIED 02/24/2017 JERRY PITT MD Ot F17.210 NICOTINE DEPENDENCE, CIGARETTES, UNCOMPL 02/24/2017 JERRY PITT MD Ot F25 .0 SCHIZOAFFECTIVE DISORDER, BIPOLAR TYPE 02/24/2017 JERRY PITT MD Ot I10 ESSENTIAL (PRIMARY) HYPERTENSION 02/24/2017 JERRY PITT MD Ot I65.23 OCCLUSION AND STENOSIS OF BILATERAL [place] 02/24/2017 JERRY PITT MD Ot I70 .0 ATHEROSCLEROSIS OF [place] 02/24/2017 JERRY PITT MD Ot I70.201 UNSP ATHSCL [place] ARTERIES OF EXTREMITI 02/24/2017 JERRY PITT MD, Ot Z79.82 JAIL (CURRENT) USE OF ASPIRIN 02/24/2017 JERRY PITT MD Ot Z79.899 OTHER JAIL (CURRENT) DRUG THERAPY 02/24/2017 JERRY PITT MD Ot Z91.14 PATIENT'S OTHER NONCOMPLIANCE WITH MEDIC 03/09/2017 LELAND BROWN MD Ot E78. 5 HYPERLIPIDEMIA, UNSPECIFIED 03/09/2017 LELAND BROWN MD Ot F17.210 NICOTINE DEPENDENCE, CIGARETTES, UNCOMPL 03/09/2017 LELAND BROWN MD Ot F31. 9 BIPOLAR DISORDER, UNSPECIFIED 03/09/2017 LELAND BROWN MD Ot I10 ESSENTIAL (PRIMARY) HYPERTENSION 03/09/2017 LELAND BROWN MD Ot I65. 23 OCCLUSION AND STENOSIS OF BILATERAL [place] 03/09/2017 LELAND BROWN MD Ot I73. 9 PERIPHERAL VASCULAR DISEASE, UNSPECIFIED 03/09/2017 LELAND BROWN MD Ot Z79. 82 JAIL (CURRENT) USE OF ASPIRIN 03/09/2017 LELAND BROWN MD Ot Z79.899 OTHER JAIL (CURRENT) DRUG THERAPY 03/15/2017 LELAND BROWN MD Ot E78. 5 HYPERLIPIDEMIA, UNSPECIFIED 03/15/2017 LELAND BROWN MD Ot F17.210 NICOTINE DEPENDENCE, CIGARETTES, UNCOMPL 03/15/2017 LELAND BROWN MD Ot F31. 9 BIPOLAR DISORDER, UNSPECIFIED 03/15/2017 LELAND BROWN MD Ot I10 ESSENTIAL (PRIMARY) HYPERTENSION 03/15/2017 LELAND BROWN MD Ot I65. 23 OCCLUSION AND STENOSIS OF BILATERAL [place] 03/15/2017 LELAND BROWN MD Ot I73. 9 PERIPHERAL VASCULAR DISEASE, UNSPECIFIED 03/15/2017 LELAND BROWN MD Ot Z79. 82 JAIL (CURRENT) USE OF ASPIRIN 03/15/2017 LELAND BROWN MD Ot Z79.899 OTHER JAIL (CURRENT) DRUG THERAPY 03/17/2017 LELAND BROWN MD Ot E78. 5 HYPERLIPIDEMIA, UNSPECIFIED 03/17/2017 LELAND BROWN MD Ot F17.210 NICOTINE DEPENDENCE, CIGARETTES, UNCOMPL 03/17/2017 LELAND BROWN MD Ot F31. 9 BIPOLAR DISORDER, UNSPECIFIED 03/17/2017 LELAND BROWN MD Ot I10 ESSENTIAL (PRIMARY) HYPERTENSION 03/17/2017 LELAND BROWN MD Ot I65. 23 OCCLUSION AND STENOSIS OF BILATERAL [place] 03/17/2017 LELAND BROWN MD Ot I73. 9 PERIPHERAL VASCULAR DISEASE, UNSPECIFIED 03/17/2017 LELAND BROWN MD Ot Z79. 82 JAIL (CURRENT) USE OF ASPIRIN 03/17/2017 LELAND BROWN MD Ot Z79.899 OTHER PICK UP MAN (CURRENT) DRUG THERAPY 12/15/2017 JERRY PITT MD Ot I25.10 ATHSCL HEART DISEASE OF [place] CORONARY 12/15/2017 JERRY PITT MD Ot J43 .9 EMPHYSEMA, UNSPECIFIED 12/15/2017 JERRY PITT MD Ot Z12 .2 ENCNTR SCREEN FOR MALIGNANT NEOPLASM OF 12/19/2017 JERRY PITT MD Ot I25.10 ATHSCL HEART DISEASE OF [place] CORONARY 12/19/2017 JERRY PITT MD Ot J43 .9 EMPHYSEMA, UNSPECIFIED 12/19/2017 JERRY PITT MD Ot Z12 .2 ENCNTR SCREEN FOR MALIGNANT NEOPLASM OF 12/22/2017 JERRY PITT MD Ot I25.10 ATHSCL HEART DISEASE OF [place] CORONARY 12/22/2017 JERRY PITT MD Ot J43 .9 EMPHYSEMA, UNSPECIFIED 12/22/2017 JERRY PITT MD Ot Z12 .2 ENCNTR SCREEN FOR MALIGNANT NEOPLASM OF 01/02/2018 JERRY PITT MD Ot I25.10 ATHSCL HEART DISEASE OF [place] CORONARY 01/02/2018 JERRY PITT MD Ot J43 .9 EMPHYSEMA, UNSPECIFIED 01/02/2018 JERRY PITT MD Ot Z12 .2 ENCNTR SCREEN FOR MALIGNANT NEOPLASM OF 03/03/2018 LELAND BROWN MD Ot E78. 5 HYPERLIPIDEMIA, UNSPECIFIED 03/03/2018 LELAND BROWN MD J Ot I10 ESSENTIAL (PRIMARY) HYPERTENSION 03/03/2018 LELAND BROWN MD Ot I73. 9 PERIPHERAL VASCULAR DISEASE, UNSPECIFIED 03/07/2018 LELAND BROWN MD Ot E78. 5 HYPERLIPIDEMIA, UNSPECIFIED 03/07/2018 KEVIN GUTIERREZ, LELAND J Ot I10 ESSENTIAL (PRIMARY) HYPERTENSION 03/07/2018 LELAND BROWN MD Ot I73. 9 PERIPHERAL VASCULAR DISEASE, UNSPECIFIED 03/16/2018 LELAND BROWN MD Ot E78. 5 HYPERLIPIDEMIA, UNSPECIFIED 03/16/2018 KEVIN GUTIERREZ, LELAND Herndon Ot I10 ESSENTIAL (PRIMARY) HYPERTENSION 03/16/2018 LELAND BROWN MD Ot I73. 9 PERIPHERAL VASCULAR DISEASE, UNSPECIFIED 12/30/2018 BIANCA CLAY APRN Ot E78.00 PURE HYPERCHOLESTEROLEMIA, UNSPECIFIED 12/30/2018 BIANCA CLAY APRN Ot F17.210 NICOTINE DEPENDENCE, CIGARETTES, UNCOMPL 12/30/2018 BIANCA CLAY APRN Ot I10 ESSENTIAL (PRIMARY) HYPERTENSION 12/30/2018 BIANCA CLAY APRN Ot I25.10 ATHSCL HEART DISEASE OF [place] CORONARY 12/30/2018 BIANCA CLAY APRN Ot I25 .2 OLD MYOCARDIAL INFARCTION 12/30/2018 BIANCA CLAY APRN Ot R07 .9 CHEST PAIN, UNSPECIFIED 12/30/2018 BIANCA CLAY APRN Ot Z79.02 JAIL (CURRENT) USE OF ANTITHROMBOTI 12/30/2018 BIANCA CLAY APRN Ot Z79.82 PICK UP MAN (CURRENT) USE OF ASPIRIN 12/30/2018 BIANCA CLAY APRN Ot Z87.891 PERSONAL HISTORY OF NICOTINE DEPENDENCE 01/01/2019 JERRY PITT MD Ot E78.00 PURE HYPERCHOLESTEROLEMIA, UNSPECIFIED 01/01/2019 JERRY PITT MD Ot E78 .5 HYPERLIPIDEMIA, UNSPECIFIED 01/01/2019 JERRY PITT MD Ot F17.210 NICOTINE DEPENDENCE, CIGARETTES, UNCOMPL 01/01/2019 JERRY PITT MD Ot F32 .9 MAJOR DEPRESSIVE DISORDER, SINGLE EPISOD 01/01/2019 JERYR PITT MD Ot I11 .0 HYPERTENSIVE HEART DISEASE WITH HEART FA 01/01/2019 JERRY PITT MD Ot I25.10 ATHSCL HEART DISEASE OF [place] CORONARY 01/01/2019 JERRY PITT MD, Ot I25 .2 OLD MYOCARDIAL INFARCTION 01/01/2019 JERRY PITT MD, Ot I50 .9 HEART FAILURE, UNSPECIFIED 01/01/2019 JERRY PITT MD Ot I65.29 OCCLUSION AND STENOSIS OF UNSPECIFIED CA 01/01/2019 JERRY PITT MD, Ot I73 .9 PERIPHERAL VASCULAR DISEASE, UNSPECIFIED 01/01/2019 JERRY PITT MD Ot R07 .9 CHEST PAIN, UNSPECIFIED 01/01/2019 JERRY PITT MD Ot Z79.02 PICK UP MAN (CURRENT) USE OF ANTITHROMBOTI 01/01/2019 JERRY PITT MD Ot Z79.82 JAIL (CURRENT) USE OF ASPIRIN 01/01/2019 JERRY PITT MD, Ot Z79.899 OTHER PICK UP MAN (CURRENT) DRUG THERAPY 01/01/2019 JERRY PITT MD Ot Z82.49 FAMILY HX OF ISCHEM HEART DIS AND OTH DI 01/01/2019 JERRY PITT MD Ot Z95.820 PERIPHERAL VASCULAR ANGIOPLASTY STATUS W 01/01/2019 JERRY PITT MD Ot Z98.52 VASECTOMY STATUS 01/02/2019 BINACA CLAY APRN Ot E78.00 PURE HYPERCHOLESTEROLEMIA, UNSPECIFIED 01/02/2019 BIANCA CLAY APRN Ot F17.210 NICOTINE DEPENDENCE, CIGARETTES, UNCOMPL 01/02/2019 BIANCA CLAY APRN Ot I10 ESSENTIAL (PRIMARY) HYPERTENSION 01/02/2019 BIANCA CLAY APRN Ot I25.10 ATHSCL HEART DISEASE OF [place] CORONARY 01/02/2019 BIANCA CLAY APRN Ot I25 .2 OLD MYOCARDIAL INFARCTION 01/02/2019 BIANCA CLAY APRN Ot R07 .9 CHEST PAIN, UNSPECIFIED 01/02/2019 BIANCA CLAY APRN Ot Z79.02 JAIL (CURRENT) USE OF ANTITHROMBOTI 01/02/2019 BIANCA CLAY APRN Ot Z79.82 PICK UP MAN (CURRENT) USE OF ASPIRIN 01/02/2019 BIANCA CLAY APRN Ot Z87.891 PERSONAL HISTORY OF NICOTINE DEPENDENCE 01/23/2019 YOANDY GUTIERREZ, JERRY Aldana Ot I25 .2 OLD MYOCARDIAL INFARCTION 01/23/2019 JERRY PITT MD Ot J98 .4 OTHER DISORDERS OF LUNG 01/23/2019 YOANDY GUTIERREZ, JERRY Aldana Ot Z12 .2 ENCNTR SCREEN FOR MALIGNANT NEOPLASM OF Procedures Code Description [place] [address] THER APUTIC INJ SQ/IM 12/30/2011 J1885 ASHLEY DOL PER 15 MG, INJ KETOROLAC TROMETHAMINE 12/30/2011 89164 MICHELLE V PSYTX 45/50 MIN 12/30/2011 76284 PSYC H DIAG INTER EXAM 01/10/2012 47899 THER APUTIC INJ SQ/IM 01/18/2012 J1885 ASHLEY DOL INJ 01/18/2012 30281 ROUT INE VENIPUNCTURE 02/25/2012 63512 CMP 02/25/2012 99032 LIPI D PANEL 02/25/2012 1987348 GF R CALC (RESULT ONLY) 02/25/2012 82803 TSH 02/26/2012 49562 PSYT X PT&/FAMILY 30 MINUTES 03/03/2012 General S Mark, Jones 03/07/2012 07157 PSYT X PT&/FAMILY 30 MINUTES 05/16/2012 MELVIN BRADY, JONES 05/17/2012 37441 EKG, TRACING (IN-HOUSE) 06/09/2012 95687 PSYT X PT&/FAMILY 30 MINUTES 06/09/2012 69275 CMP 07/28/2012 26489 LIPI D PANEL 07/28/2012 55661 HEMOCCULT 07/29/2012 13274 ROUT INE VENIPUNCTURE 08/03/2012 J3301 DIA LOG INJ, PER 10 MG 08/03/2012 99810 CMP 08/03/2012 10983 LIPI D PANEL 08/03/2012 5802085 GF R CALC (RESULT ONLY) 08/03/2012 66718 PSYT X PT&/FAMILY 30 MINUTES 08/04/2012 22806 ROUT INE VENIPUNCTURE 10/05/2012 83531 INR (IN HOUSE) 10/05/2012 41602 CMP 10/05/2012 63187 ROUT INE VENIPUNCTURE 11/20/2012 16866 LIPI D PANEL 11/20/2012 40915 XRAY RIBS RIGHT UNILATERAL 2 OR MORE VIEWS 11/29/2012 52358 DAVID 11/29/2012 95355 OXIMETRY 11/29/2012 CARDIOLOG LELAND BROWN 12/12/2012 62058 ROUT INE VENIPUNCTURE 12/19/2012 71362 EKG, TRACING (IN-HOUSE) 12/19/2012 79308 MAGNESIUM 12/19/2012 44999 CBC 12/19/2012 5985989 GF R CALC (RESULT ONLY) 12/19/2012 88889 CMP 12/19/2012 45157 TSH 12/19/2012 99962 JOIN T INJECTION- LARGE JOINT (SPECIFY MEDCIN DESCRIPTION) 12/28 53492 NUCL EAR STRESS TESTING 01/26/2013 78580 ECHO 2D 01/26/2013 15847 XRAY KNEE RIGHT 3 VIEWS 05/29/2013 33495 ROUT INE VENIPUNCTURE 06/07/2013 18101 LIPI D PANEL 06/07/2013 53326 JOIN T INJECTION- LARGE JOINT (SPECIFY MEDCIN DESCRIPTION) 06/15 FRANKIE STEINER 09/19/2013 70461 ROUT INE VENIPUNCTURE 09/28/2013 67131 CMP 09/28/2013 92738 LIPI D PANEL 09/28/2013 31935 CBC 09/28/2013 S0280 COMP REHENSIVE CARE MANAGEMENT 11/01/2013 S0280 HEAL TH PROMOTION 11/04/2013 S0281 CARE COORDINATION 11/04/2013 S0280 HEAL TH PROMOTION 11/04/2013 S0280 HEAL TH PROMOTION 11/19/2013 S0281 REFE RRAL TO [facility] 11/19/2013 28900 UA W / CULTURE IF INDICATED 02/26/2014 76442 CULT URE URINE 02/28/2014 83502 ROUT INE VENIPUNCTURE 05/16/2014 11748 LIPI D PANEL 05/16/2014 68175 LIVE R PANEL (LFT) 05/16/2014 Results Test Result Range Complete blood count (CBC) with automate d white blood cell (WBC) differential - 02/22/17 13:50 Blood leukocytes automated count (number/volume) 9.0 10*3/uL 4.3-11.0 Blood erythrocytes automated count (number/volume) 5.76 10*6/uL 4.35-5.85 Venous blood hemoglobin measurement (mass/volume) 17.9 g/dL 13.3-17.7 Blood hematocrit (volume fraction) 52 % 40-54 Automated erythrocyte mean corpuscular volume 90 [ foz_us] 80-99 Automated erythrocyte mean corpuscular h emoglobin (mass per erythrocyte) 31 pg 25-34 Automated erythrocyte mean corpuscular h emoglobin concentration measurement (mass/volume) 35 g/dL 32-36 Automated erythrocyte distribution width ratio 13. 9 % 10.0- 14.5 Automated blood platelet count (count/volume) 272 10*3/uL 130-400 Automated blood platelet mean volume measurement 9.7 [foz_us] 7.4-10.4 Automated blood neutrophils/100 leukocytes 68 % 42-75 Automated blood lymphocytes/100 leukocytes 20 % 12-44 Blood monocytes/100 leukocytes 10 % 0-12 Automated blood eosinophils/100 leukocytes 2 % 0-10 Automated blood basophils/100 leukocytes 0 % 0-10 Blood neutrophils automated count (number/volume) 6.1 10*3 1.8-7.8 Blood lymphocytes automated count (number/volume) 1.8 10*3 1.0-4.0 Blood monocytes automated count (number/volume) 0. 9 10*3 0.0-1.0 Automated eosinophil count 0.2 10*3/uL 0 .0-0.3 Automated blood basophil count (count/volume) 0.0 10*3/uL 0.0-0.1 Whole blood basic metabolic panel - 04/10 13:50 Serum or plasma sodium measurement (moles/volume) 138 mmol/L 135-145 Serum or plasma potassium measurement (moles/volume) 3.9 mmol/L 3.6-5.0 Serum or plasma chloride measurement (moles/volume) 102 mmol/L 98-107 Carbon dioxide 25 mmol/L 21-32 Serum or plasma anion gap determination (moles/volume) 11 mmol/L 5-14 Serum or plasma urea nitrogen measurement (mass/volume ) 12 mg/dL 7-18 Serum or plasma creatinine measurement (mass/volume) 0.84 mg/dL 0.60-1.30 Serum or plasma urea nitrogen/creatinine mass ratio 14 NRG Serum or plasma creatinine measurement w ith calculation of estimated glomerular filtration rate > NRG Serum or plasma glucose measurement (mass/volume) 98 mg/dL 70-105 Serum or plasma calcium measurement (mass/volume) 9.5 mg/dL 8.5-10.1 PT panel in platelet poor plasma by coag ulation assay - 02/22/17 13:50 Prothrombin time (PT) in platelet poor plasma by coagu lation assay 13.3 s 12.2-14.7 INR in platelet poor plasma or blood by coagulation as say 1.0 0.8-1.4 Activated partial thromboplastin time (a PTT) in platelet poor plasma bycoagulation assay - 02/22/17 13:50 Activated partial thromboplastin time (a PTT) in platelet poor plasma bycoagulation assay 26 s 24-35 Methicillin resistant Staphylococcus aur eus (MRSA) screening culture - 02/23/17 07:30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 [id number] 10/24/2012 12:05:00 12:55:00 DIS Emergency BIANCA CLAY APRN [facility] ER RIGHT ANKLE PAIN [id number] 04/25/2014 09:20:00 Document Registration [id number] 03/22/2012 06:09:00 Document Registration [id number] 03/20/2012 09:08:00 Document Registration
--- NOTE | 2019-05-27 20:20 | ED Upper Extremity ---
General Stated Complaint: ETOH/WRIST INJ Source: patient Exam Limitations: intoxication (JOSUE VERMA MD) History of Present Illness Date Seen by Provider: May 27, 2019 Time Seen by Provider: 20:12 Initial Comments Here with report of left wrist pain after falling. Patient is quite intoxicated and states he fell onto his left and. Has swelling over the ulnar aspect. Denies other injury. Admits to drinking alcohol. Does have a safe place to go to. Onset: this evening (unsure of exact time but within the last couple of hours) Severity: moderate Pain/Injury Location: left wrist Method of Injury: fell Modifying Factors: Improves With Immobilization; Worse With Movement (JOSUE VERMA MD) Allergies and Home Medications Allergies Coded Allergies: No Known Drug Allergies (Unverified , 02/22/17) Home Medications Acetaminophen 500 Mg Tablet, 1,000 MG PO Q8H PRN for PAIN-MILD, (Reported) TAKES 2 (500 MG) TABLETS Amlodipine Besylate 5 Mg Tablet, 5 MG PO DAILY, (Reported) Aspirin 81 Mg Tablet.dr, 81 MG PO DAILY, (Reported) Atorvastatin Calcium 40 Mg Tablet, 40 MG PO DAILY, (Reported) Cilostazol 50 Mg Tablet, 50 MG PO BID, (Reported) Clopidogrel Bisulfate 75 Mg Tablet, 75 MG PO DAILY, (Reported) Diphenhydramine HCl 25 Mg Capsule, 25 MG PO HS PRN for SLEEP, (Reported) Hydrochlorothiazide 12.5 Mg Capsule, 12.5 MG PO DAILY, (Reported) Hydroxyzine HCl 10 Mg Tablet, 10 MG PO TID PRN for ANXIETY, (Reported) Lisinopril 20 Mg Tablet, 20 MG PO DAILY, (Reported) Lurasidone HCl 80 Mg Tablet, 80 MG PO DAILY, (Reported) Methocarbamol 750 Mg Tablet, 750 MG PO Q4H PRN for PAIN-MODERATE (4-6) Prescribed by: BIANCA CLAY on 12/30/18 1318 Nicotine 1 Each Patch.td24, 21 MG TD DAILY Prescribed by: JERRY PITT on 02/24/17 1005 Nicotine Polacrilex 4 Mg Gum, 4 MG BC Q2H PRN for craving Prescribed by: JERRY PITT on 02/24/17 1005 [place] 3 Polyunsat Fatty Acids 1,000 Mg Cap, 1,000 MG PO BID WITH MEALS, (Reported) Patient Home Medication List Home Medication List Reviewed: Yes (JOSUE VERMA MD) Review of Systems Constitutional: see HPI; No fever, No weakness Respiratory: no symptoms reported Cardiovascular: no symptoms reported Musculoskeletal: see HPI, joint pain, joint swelling Skin: change in color, lesions Psychiatric/Neurological: See HPI; Denies Headache, Denies Numbness (JOSUE VERMA MD) Past Tqueclq-Ogbbxl-Ceatii Hx Past Med/Social Hx: Reviewed Nursing Past Med/Soc Hx (JOSUE VERMA MD) Patient Social History Alcohol Use: Regular Use Alcohol Beverage of Choice: Beer Smoking Status: Current Everyday Smoker Type Used: Cigarettes Recent Foreign Travel: No Contact w/Someone Who Travel: No Recent Hopitalizations: No (JOSUE VERMA MD) Immunizations Up To Date Date of Pneumonia Vaccine: Jan 22, 2012 Date of Influenza Vaccine: Nov 22, 2018 (JOSUE VERMA MD) Seasonal Allergies Seasonal Allergies: No (JOSUE VERMA MD) Past Medical History Surgeries: Yes (vasectomy, STENT IN RT LEG) Vascular Surgery, Vasectomy Respiratory: No Cardiac: No (STATES "HEART ATTACK IN THE PAST" X3, STENT RIGHT LEG) Coronary Artery Disease, Heart Attack, High Cholesterol, Hypertension, Peripheral Vascular Neurological: No Genitourinary: No Gastrointestinal: No Musculoskeletal: No Endocrine: No HEENT: Yes Hearing Impairment: Hard of Hearing Cancer: No Psychosocial: Yes (alcohol abuse) Bipolar, Violent Behavior Integumentary: No Blood Disorders: No (JOSUE VERMA MD) Family Medical History Reviewed Nursing Family Hx (JOSUE VERMA MD) Patient reports no known family medical history. Physical Exam Vital Signs Vital Signs - First Documented 05/27/19 21:15 Temp 35.6 Pulse 74 Resp 18 B/P (MAP) 108/75 Pulse Ox 95 O2 Delivery Room Air (SHELBI AGUSTIN) Vital Signs Capillary Refill : (JOSUE VERMA MD) Height, Weight, BMI Height: 5'10.00" Weight: 200lbs. 0.0oz. 90.610922wv; 27.07 BMI Method:Stated General Appearance: WD/WN, no apparent distress HEENT: PERRL/EOMI, pharynx normal, other (no obvious injury) Neck: non-tender, full range of motion, supple, normal inspection Cardiovascular: regular rate, rhythm, no murmur Respiratory: lungs clear, normal breath sounds Wrist: Yes swelling (swelling and deformity of the left wrist volar aspect with abrasion. Retains range of motion of hand and fingers.) Neurologic/Psychiatric: alert, other (intoxicated but answers questions and follows commands) Skin: warm/dry, other (abrasion to the left wrist ulnar aspect) (JOSUE VERMA MD) Progress/Results/Core Measures Results/Orders Medications Given in ED Current Medications Medications Dose Ordered Sig/Javier Route Start Time Stop Time Status Last Admin Dose Admin Diphtheria/ Tetanus/Acell Pertussis 0.5 ml ONCE ONCE IM 05/27/19 20:30 05/27/19 20:31 DC 05/27/19 20:50 0.5 ML (SHELBI AGUSTIN) Vital Signs/I&O 05/27/19 21:15 Temp 35.6 Pulse 74 Resp 18 B/P (MAP) 108/75 Pulse Ox 95 O2 Delivery Room Air (SHELBI AGUSTIN) Progress Progress Note : Progress Note Seen and evaluated. Tetanus updated. X-ray left wrist ordered. We will get CT of the head do to history of fall and he is on clopidogrel. Monitor patient. (JOSUE VERMA MD) Progress Note : Progress Note [address] Verma[address] CT and x-ray results reviewed, no acute findings. Triple antibiotic ointment and Band-Aid applied to abrasion on left wrist. 4 inch Inocencio wrap applied. Diagnostic study results discussed with the patient. Discharge instructions and return precautions reviewed. Brother here to drive patient home. (SHELBI AGUSTIN) Diagnostic Imaging Diagonstic Imaging: CT Plain Films/CT/US/NM/MRI: head Comments NAME: [facility] REC#: [id number] PT STATUS: REG ER : 1960 PHYSICIAN: JOSUE VERMA MD ADMIT DATE: 05/27/19/ER Signed Date of Exam:05/27/19 CT HEAD WO PROCEDURE: CT head without contrast. TECHNIQUE: Multiple contiguous axial images were obtained through the brain without the use of intravenous contrast. Auto Exposure Controls were utilized during the CT exam to meet ALARA standards for radiation dose reduction. INDICATION: Fall. Ethanol abuse. FINDINGS: There is no evidence of intracranial hemorrhage. The ventricles and cortical gyral pattern are normal. Basal cisterns are clear. No shift of the midline. No extra-axial fluid collection. Basal cisterns and CP angles are normal. The mastoid air cells and paranasal sinuses are clear. No evidence of calvarial fracture. IMPRESSION: Negative CT head without contrast. Dictated by: Dictated on workstation # [id number] Dict: 05/27/192040 Trans: 05/27/192047 PJE [id number] Interpreted by: KAMERON YOU MD Electronically signed by: KAMERON YOU MD 05/27/192047 Reviewed: Reviewed by Me Diagonstic Imaging: Xray Plain Films/CT/US/NM/MRI: other (wrist) Comments NAME: ELOY [facility] REC#: [id number] PT STATUS: REG ER : 1960 PHYSICIAN: JOSUE VERMA MD ADMIT DATE: 05/27/19/ER Signed Date of Exam:05/27/19 WRIST, LEFT, 3 VIEWS OR MORE INDICATION: Fall. Left wrist pain. EXAMINATION: Three views of the left wrist. FINDINGS: No fracture or dislocation is demonstrated. Radiocarpal joint is in good alignment. Articulating surfaces are smooth. Carpal bones show no subluxation. IMPRESSION: Negative left wrist. Dictated by: Dictated on workstation # [id number] Dict: 05/27/192043 Trans: 05/27/192047 PJMaxime [id number] Interpreted by: KAMERON YOU MD Electronically signed by: KAMERON YOU MD 05/27/192047 Reviewed: Reviewed by Me (SHELBI AGUSTIN) Departure Impression Primary Impression: Fall Qualified Codes: W19.XXXA - Unspecified fall, initial encounter Additional Impression: Contusion of wrist Qualified Codes: S60.212A - Contusion of left wrist, initial encounter Disposition: HOME, SELF-CARE Condition: Improved Departure-Patient Inst. Decision time for Depature: 21:00 (SHELBI AGUSTIN) Referrals: JERRY PITT MD (PCP/Family) Primary Care Physician Patient Instructions: Wrist Sprain (DC) Add. Discharge Instructions: Ice to left wrist 20 minutes every 2 hours while awake. You may alternate between Tylenol 650 mg and ibuprofen 600 mg every 4 hours for pain or fever. Inocencio wrap to left wrist. Follow-up with your primary care provider if symptoms are not improving or worsen. Return to the emergency department for new, urgent health care needs. Copy Copies To 1: JERRY PITT MD, TIMOTHY D MD May 27, 2019 20:20 SHELBI AGUSTIN May 27, 2019 21:02
[2019-05-27] MEDS ORDERED: TETANUS,DIPTH,PERTUSS P/F (BOOSTRIX) 0.5 ML VIAL IM ONE (20:30)
--- NOTE | 2019-05-27 20:46 | Diagnostic Imaging Report ---
INDICATION: Fall. Left wrist pain. EXAMINATION: Three views of the left wrist. FINDINGS: No fracture or dislocation is demonstrated. Radiocarpal joint is in good alignment. Articulating surfaces are smooth. Carpal bones show no subluxation. IMPRESSION: Negative left wrist. Dictated by: Dictated on workstation # [id number]
--- NOTE | 2019-05-27 20:47 | Diagnostic Imaging Report ---
PROCEDURE: CT head without contrast. TECHNIQUE: Multiple contiguous axial images were obtained through the brain without the use of intravenous contrast. Auto Exposure Controls were utilized during the CT exam to meet ALARA standards for radiation dose reduction. INDICATION: Fall. Ethanol abuse. FINDINGS: There is no evidence of intracranial hemorrhage. The ventricles and cortical gyral pattern are normal. Basal cisterns are clear. No shift of the midline. No extra-axial fluid collection. Basal cisterns and CP angles are normal. The mastoid air cells and paranasal sinuses are clear. No evidence of calvarial fracture. IMPRESSION: Negative CT head without contrast. Dictated by: Dictated on workstation # [id number]
[2019-05-27 21:15] VITALS: BP 108/75
--- NOTE | 2019-05-27 21:15 | NUR ---
Patient assisted by RN outside to vehicle by wheelchair. Patient's brother is driving the vehicle. Patient aknowledges understanding of discharge instructions. Ice pack placed on left wrist area.
== END 2019-05-27 21:15 | disposition home or self-care (01) ==
LOC: EDUNIT# 19:55 → ER 19:57
DX: S60.212A Contusion of left wrist, initial encounter (principal); I10 Essential (primary) hypertension; I25.2 Old myocardial infarction; E78.00 Pure hypercholesterolemia, unspecified; I25.10 Atherosclerotic heart disease of native coronary artery without angina pectoris; F31.9 Bipolar disorder, unspecified; F17.210 Nicotine dependence, cigarettes, uncomplicated; Z79.82 Long term (current) use of aspirin; Z79.02 Long term (current) use of antithrombotics/antiplatelets; Z95.5 Presence of coronary angioplasty implant and graft; Z23 Encounter for immunization; W19.XXXA Unspecified fall, initial encounter
CPT/HCPCS: 70450; 73110; 90715

== ENCOUNTER 2019-10-24 09:00 | Day surgery (SDC) | payer MEDICAID ==
[~2019-10-24] VITALS: Ht 177 cm; Wt 91.0 kg
[2019-10-24] VITALS (9 sets, daily range): BP systolic 101–143; BP diastolic 46–96
[2019-10-24 07:15] LABS: HEMOGLOBIN 15.6 G/DL (13.3-17.7); MEAN PLATELET VOLUME 10.2 FL (7.4-10.4); RED CELL DISTRIBUTION WIDTH 13.5 % (10.0-14.5); WHITE BLOOD COUNT 9.4 10^3/uL (4.3-11.0)
[2019-10-24 07:15] LABS: BILIRUBIN,URINE NEGATIVE (NEGATIVE); CLARITY,URINE CLEAR; COLOR,URINE YELLOW; GLUCOSE, URINE (UA) NEGATIVE (NEGATIVE); KETONES,URINE NEGATIVE (NEGATIVE); LEUKOCYTE ESTERASE ,URINE NEGATIVE (NEGATIVE); NITRITE,URINE NEGATIVE (NEGATIVE); PH,URINE 5.5 (5-9); PROTEIN,URINE NEGATIVE (NEGATIVE)
[2019-10-24 07:26] LABS: BACTERIA,URINE NEGATIVE /HPF; WBC,URINE 0-2 /HPF
[2019-10-24 07:28] LABS: INR 0.9 (0.8-1.4)
[2019-10-24 07:36] LABS: ALANINE AMINOTRANSFERASE 18 U/L (0-55); ALBUMIN 4.5 GM/DL (3.2-4.5); ALKALINE PHOSPHATASE 66 U/L (40-136); BILIRUBIN,TOTAL 0.7 MG/DL (0.1-1.0); BUN/CREATININE RATIO 20; CALCIUM 9.7 MG/DL (8.5-10.1); CARBON DIOXIDE 25 MMOL/L (21-32); CHLORIDE 98 MMOL/L (98-107); CHOLESTEROL 161 MG/DL (< 200); CREATININE SERUM 1.07 MG/DL (0.60-1.30); GFR ESTIMATED > 60; GLUCOSE 94 MG/DL (70-105); HDL CHOLESTEROL 48 MG/DL (40-60); POTASSIUM 4.1 MMOL/L (3.6-5.0); SODIUM 137 MMOL/L (135-145); TOTAL PROTEIN 7.3 GM/DL (6.4-8.2); TRIGLYCERIDES 121 MG/DL (<150); VLDL CHOLESTEROL 24 MG/DL (5-40)
--- NOTE | 2019-10-24 07:48 | Diagnostic Imaging Report ---
Reason for examination: Preoperative evaluation. Upright AP portable view of the chest was obtained and compared to 12/31/2018. Heart size is within normal limits. No mediastinal widening. No effusions, infiltrates or pneumothorax. No acute osseous finding. IMPRESSION: 1. No acute disease or significant change in the chest. Dictated by: Dictated on workstation # [id number]
--- NOTE | 2019-10-24 08:59 | Cardiac Procedure Note-CS/ASA ---
Pre-Procedure Note Pre-Op Procedure Note H&P Reviewed The H&P was reviewed, patient examined and no changes noted. Date H&P Reviewed: Oct 24, 2019 Time H&P Reviewed: 08:59 Conscious Sedation Pre-Proced Time 08:59 ASA Score 3 For ASA 3 and 4: Consider anesthesia and medical clearance. Also, for patients with a history of failed moderate sedation consider anesthesia. Airway Lungs Heart ASA score ASA 1: a normal healthy patient ASA 2: a patient with a mild systemic disease (mid diabetes, controlled hypertension, obesity x ASA 3: a patient with a severe systemic disease that limits activity (angina, COPD, prior Myocardial infarction) ASA 4: a patient with an incapacitating disease that is a constant threat to life (CHF, renal failure) ASA 5: a moribund patient not expected to survive 24 hrs. (ruptured aneurysm) ASA 6: a declared brain- patient whose organs are being harvested. For emergent operations, add the letter E after the classification Mallampati Classification Grade 3 Sedation Plan Analgesia, Amnesia, Plan communicated to team members, Discussed options with patient/fam, Discussed risks with patient/fam The patient is an appropriate candidate to undergo the planned procedure, sedation, and anesthesia. The patient immediately re-assessed prior to indication. LELAND BROWN MD Oct 24, 2019 08:59
[~2019-10-24 09:00] MED LIST changes: +ASPI-1238 PO; -ASPI-983 PO; +DIVA-76 PO; +HEParin 1000 UNIT/ML (10ML VIAL) FOR BOLUS ONE; +MIDAZOLAM 5 MG/5 ML (VERSED) VIAL ONE; +NS IV 1000 ML 1,000 ML IV SCH; +fentaNYL INJECTION 100 MCG/2 ML AMP ONE
[2019-10-24] MEDS ORDERED: NS IV 1000 ML 1,000 ML ONE (09:19)
[2019-10-24] MEDS ORDERED: NS IV 1000 ML 1,000 ML IV SCH (10:00)
[2019-10-24] MEDS ORDERED: PATIENT MAY USE OWN MEDS, ALL PO SCH (10:00)
--- NOTE | 2019-10-24 10:08 | Peripheral Report ---
Peripheral Report Physician (s)/Quality Process Engineer (s) Physician LELAND BROWN MD Pre-Procedure Diagnosis Pre-Procedure Diagnosis: Peripheral artery disease Post-Procedure Note Procedure Start Date: Oct 24, 2019 Name of Procedure: Abdominal aortogram Bilateral runoff Third order Additional imaging x 1 LIQUOR MERCHANT to the right anterior tibial artery Findings/Procedure Note PROCEDURE NOTE: 59 years old gentleman with extensive peripheral arterial disease, multiple intervention, last intervention was done in February 2017, has been having increasing claudication, had abnormal TBI. Scheduled for peripheral angiogram with bilateral runoff. After explaining the procedure to the patient, all pros and cons were explained, all questions were answered. The patient signed the consent and then he was placed on the cardiac catheterization laboratory. The patient was placed on the cardiac catheterization laboratory. Groin was prepped SL fashion local anesthesia was used. Sheath placed in the left femoral artery, runoff to the left leg was done then using a rim catheter I crossed over and exchange it into long straight catheter placed in the proximal SFA. Runoff was done then decision to proceed with intervention was made. Patient was given 6000 units of heparin, 6 Romansh 55 cm sheath was laced. I advanced the straight catheter to the tibioperoneal trunk then placed command 14 wire in the proximal anterior tibial artery that was occluded. Exchange the straight catheter and used mini catheter 18, use it as support and advance it in the anterior tibial artery, I was able to advance the wire to the mid anterior tibial artery, placed the mini catheter in the mid portion and remove the wire and did injection through the mini catheter, there was very minimal flow through collaterals no actual flow in the anterior tibial artery. I placed the wire back and backed up the mini catheter and did injection through the sheath, there was no improvement of flow. I placed 2.5 x 60 [place] and did 1 inflation at 6 chuck for 1 minute, backed up and did repeat angiogram through the sheath, there is no improvement in the flow. I did the second injection at the foot level with DSA, there was slight collateral filling from the posterior tibial and peroneal. At that point due to the fact that there is no ischemic foot. I do not see that this artery will continue to be open even if I was successful. Decided to stop the procedure at that point. Sheath was exchanged into 6 Romansh short sheath and used pigtail catheter advanced it to the abdominal aorta and abdominal aortogram and evaluation of the bifurcation was then. At the end of the procedure sheath was removed. Closure device was used FINDINGS: Abdominal aortogram showed mild atherosclerotic disease, renal arteries are normal, SMA and ENRIQUE are normal, bifurcation is normal. Left leg runoff, good runoff down to the trifurcation slow flow below the trifurcation with 3 vessels Right leg runoff, good flow through the SFA, the stent in the SFA and popliteal arteries are patent, excellent flow through the posterior tibial and peroneal artery, total occlusion of the proximal anterior tibial artery, balloon angioplasty to the proximal area did not reestablished flow. CONCLUSIONS: 1. Total occlusion of the anterior tibial artery on the right leg, attempt for balloon angioplasty did not reestablished flow. Patient is getting collateral from the posterior tibial to the distal anterior tibial artery. 2. Patent stent in the mid and distal SFA and popliteal artery on the right 3. Mild atherosclerotic plaque down to the trifurcation on the left side 4. Normal abdominal aorta with mild atherosclerotic plaques. DISCUSSION AND RECOMMENDATIONS: Continue to maximize medical therapy. Anesthesia Type: Conscious Sedation Estimated blood loss (mL): 25 ml Contrast Amount: 50 ml Total Radiation Dose: 125 mGy Post-Procedure Diagnosis Post-operative diagnosis: Claudication Peripheral arterial disease Hypertension Hyperlipidemia LELAND BROWN MD Oct 24, 2019 10:08
--- NOTE | 2019-10-24 10:24 | Discharge Inst-Post CATH ---
Discharge Inst-CATH/EP Problems Reviewed?: Yes Post Cardiac Cath/EP D/C Inst Follow Up/Plan Appointment with Dr. Rebolledo's office in 4 weeks <b>CARDIAC CATH/EP PROCEDURE DISCHARGE INSTRUCTIONS</b> ACTIVITY * Go Home directly and rest. * Limit activity of the leg (or wrist if it was used) for 7 days including aerobics, swimming, jogging, bicycling, etc. * Restrict stair-climbing for 7 days if possible, if not, climb up with your non-cath leg, then bring together on the same step. * Avoid lifting, pushing, pulling or excessive movement of the affected extremity for 7 days. * Customary sexual activity may be resumed after 2 days-use caution not to use a position that strains or causes pain to the affected extremity. * No driving for 24 hours. * NO SMOKING. * Avoid straining for bowel movements for 7 days. * Gentle walking on level ground is allowed. * Returning to work will depend on the type of procedure and the results. Your doctor will discuss this with you. CALL YOUR DOCTOR FOR ANY OF THE FOLLOWING: *If bleeding from the puncture site occurs- Apply gentle pressure to site with clean cloth and call your doctor or EMS. * If a knot or lump forms under the skin, increases in size, or causes pain. * If bruising appears to be worsening or moving further down your leg instead of disappearing. * Temperature above 101 F. CARE OF YOUR GROIN INCISION; * Bruising or purple discoloration of the skin near the puncture site is common. * You may shower only, no bathtub bathing for 5 days. Be careful to avoid slipping as your leg may feel stiff. * If a closure device was used on your femoral artery, please see the attached guide regarding care of the device and your leg. * Leave dressing on FOR 24 hours. CARE OF YOUR WRIST INCISION; * Bruising or purple discoloration of the skin near the puncture site is common. * You may shower. * DO NOT submerge wrist. * Leave dressing on FOR 24 hours. LELAND REBOLLEDO MD Oct 24, 2019 10:24 am
[2019-10-25] MEDS ORDERED: lisINopril 20 MG (PRINIVIL) TABLET PO SCH (09:00)
[2019-10-25] MEDS ORDERED: CLOPIDOGREL 75 MG (PLAVIX) TABLET PO SCH (09:00)
[2019-10-25] MEDS ORDERED: ASPIRIN E.C. 81 MG (ECOTRIN) TAB PO SCH (09:00)
[2019-10-25] MEDS ORDERED: amLODIPine 5 MG (NORVASC) TAB PO SCH (09:00)
== END 2019-10-24 17:45 | disposition home or self-care (01) ==
LOC: CATH 09:00 → ICU 10:25 → CATH 17:45
PROVIDERS: ATTEND Internal Medicine Cardiovascular Disease
DX: I70.213 Atherosclerosis of native arteries of extremities with intermittent claudication, bilateral legs (principal); I10 Essential (primary) hypertension; E78.5 Hyperlipidemia, unspecified; F31.9 Bipolar disorder, unspecified; E66.01 Morbid (severe) obesity due to excess calories; Z68.29 Body mass index [BMI] 29.0-29.9, adult; Z79.82 Long term (current) use of aspirin; Z79.899 Other long term (current) drug therapy; Z86.73 Personal history of transient ischemic attack (TIA), and cerebral infarction without residual deficits; Z80.9 Family history of malignant neoplasm, unspecified
CPT/HCPCS: 37228; 71045; 75625; 75716; 80053; 80061; 81000; 85027; 85610; 85730; 87081; C1760; C1769 ×2; C1887 ×2; C1894 ×2; 36415

== ENCOUNTER → 2019-10-31 | Outpatient (CLI) | payer MEDICAID ==
[~2019-10-31] VITALS: Ht 177 cm; Wt 91.0 kg
[~2019-10-31] MED LIST changes: +CATHETER FLUSH 10 ML SYR IV PRN; -HEParin 1000 UNIT/ML (10ML VIAL) FOR BOLUS ONE; -MIDAZOLAM 5 MG/5 ML (VERSED) VIAL ONE; -NS IV 1000 ML 1,000 ML IV SCH; +REGADENOSON 0.4 MG/5 ML SYR (LEXISCAN) IV ONE; -fentaNYL INJECTION 100 MCG/2 ML AMP ONE
--- NOTE | 2019-10-31 12:30 | Diagnostic Imaging Report ---
INDICATION: Cerebrovascular accident. Segmental pressures were obtained bilateral lower extremities. Ankle-brachial index on the right is 1.07 and on the left 1.16. IMPRESSION: Normal bilateral ankle brachial indices. Dictated by: Dictated on workstation # [id number]
[2019-10-31 13:14] VITALS: BP 132/80
--- NOTE | 2019-10-31 15:08 | Cardiology Stress Test Report ---
Stress Test Report Date of Procedure/Referring: Date of Procedure: Oct 31, 2019 Loyda Merdano Admitting Physician Marielena Vasquez MD Indications: CAD Baseline Heart Rate: 54 Baseline Blood Pressure: Blood Pressure Systolic: 132 Blood Pressure Diastolic: 80 Baseline Vitals Vital Signs Date Time Temp Pulse Resp B/P (MAP) Pulse Ox O2 Delivery O2 Flow Rate FiO2 10/31/19 13:14 54 132/80 (97) 98 Baseline EKG: Baseline EKG: normal sinus rhythm Summary After explaining the procedure to the patient, he signed a consent and then brought to the stress nuclear laboratory. Patient received 0.4 mg Lexiscan for stress test, ECG, heart rate and blood pressure were monitored continuously. Resting and stress dose of radio tracer were injected, imaging was acquired and reviewed in short axis, horizontal long axis and vertical long axis views. TID: 0.92 SSS: 2 SDS: 2 EF: 68 1. Patient tolerated Lexiscan well 2. Baseline sinus rhythm with occasional APCs 3. No significant ischemia or infarction on SPECT images 4. Normal left ventricular size, EF 68 percent LELAND BROWN MD Oct 31, 2019 15:08
== END ==
LOC: RAD 10:06
PROVIDERS: ATTEND Physician Assistant
DX: I63.9 Cerebral infarction, unspecified (principal); I10 Essential (primary) hypertension; E78.5 Hyperlipidemia, unspecified; I73.9 Peripheral vascular disease, unspecified; Z72.0 Tobacco use
CPT/HCPCS: 78452; 93017; 93306; 93922; A9502

== ENCOUNTER 2020-01-21 10:37 | Emergency (ER) | payer MEDICAID ==
[~2020-01-21] VITALS: Ht 177.8 cm; Wt 90.7 kg
[~2020-01-21 10:37] MED LIST changes: +AMLO-250 PO; -AMLO5TAB9 PO; -CATHETER FLUSH 10 ML SYR IV PRN; -REGADENOSON 0.4 MG/5 ML SYR (LEXISCAN) IV ONE
--- NOTE | 2020-01-21 11:55 | ED GU-Male ---
General Chief Complaint: Male Reproductive Stated Complaint: GROIN PAIN Source: patient Exam Limitations: no limitations History of Present Illness Date Seen by Provider: Jan 21, 2020 Time Seen by Provider: 11:53 Initial Comments 60-year-old gentleman presents to ER with reports of right testicular pain since Tuesday which has spread to the left testicle. He had a similar event many years ago for which she saw a physician in [place] and was told it was a 'blue ball from lack of nookie". He denies any fevers or chills, denies any dysuria. Denies any trauma. Timing/Duration: constant Severity/Quality: moderate Location: scrotal Activities at Onset: none Prior Genitourinary Problems: none Associated Symptoms: denies symptoms Allergies and Home Medications Allergies Coded Allergies: No Known Drug Allergies (Unverified , 02/22/17) Home Medications Amlodipine Besylate 5 Mg Tablet, 5 MG PO DAILY, (Reported) Aspirin 81 Mg Tablet.dr, 81 MG PO DAILY, (Reported) Atorvastatin Calcium 40 Mg Tablet, 40 MG PO DAILY, (Reported) Clopidogrel Bisulfate 75 Mg Tablet, 75 MG PO DAILY, (Reported) Cyclobenzaprine HCl 10 Mg Tablet, 10 MG PO PRN, (Reported) Divalproex Sodium 500 Mg Tablet.dr, 500 MG PO BID, (Reported) Hydrochlorothiazide 12.5 Mg Capsule, 12.5 MG PO DAILY, (Reported) Lisinopril 20 Mg Tablet, 20 MG PO DAILY, (Reported) Lurasidone HCl 80 Mg Tablet, 80 MG PO DAILY, (Reported) [place] 3 Polyunsat Fatty Acids 1,000 Mg Cap, 1,000 MG PO BID WITH MEALS, (Reported) Patient Home Medication List Home Medication List Reviewed: Yes Review of Systems Review of Systems Constitutional: see HPI EENTM: see HPI Respiratory: no symptoms reported Cardiovascular: no symptoms reported Genitourinary: see HPI Musculoskeletal: no symptoms reported Skin: no symptoms reported Psychiatric/Neurological: No Symptoms Reported Endocrine: No Symptoms Reported Past Dejrmlw-Ftgdmr-Ljxncs Hx Patient Social History Alcohol Use: Denies Use Number of Drinks Today: AA Alcohol Beverage of Choice: Beer Recreational Drug Use: No Smoking Status: Current Everyday Smoker Type Used: Cigarettes Former Smoker, Quit: Feb 21, 2017 Recent Foreign Travel: No Contact w/Someone Who Travel: No Recent Hopitalizations: No Immunizations Up To Date Tetanus Booster (TDap): Unknown Date of Pneumonia Vaccine: Jan 22, 2012 Date of Influenza Vaccine: Nov 22, 2018 Seasonal Allergies Seasonal Allergies: No Past Medical History Surgeries: Yes (vasectomy, STENT IN RT LEG) Vascular Surgery, Vasectomy Respiratory: No Cardiac: No (STATES "HEART ATTACK IN THE PAST" X3, STENT RIGHT LEG) Coronary Artery Disease, Heart Attack, High Cholesterol, Hypertension, Peripheral Vascular Neurological: No Genitourinary: No Gastrointestinal: No Musculoskeletal: No Endocrine: No HEENT: Yes Hearing Impairment: Hard of Hearing Cancer: No Psychosocial: Yes (alcohol abuse) Bipolar, Violent Behavior Integumentary: No Blood Disorders: No Family Medical History Patient reports no known family medical history. Physical Exam Vital Signs Vital Signs - First Documented 01/21/20 11:11 Temp 36.0 Pulse 76 Resp 20 B/P (MAP) 127/66 (86) Pulse Ox 96 O2 Delivery Room Air Capillary Refill : Height, Weight, BMI Height: 5'10.00" Weight: 200lbs. 0.0oz. [id number]; 29.04 BMI Method:Stated General Appearance: WD/WN, no apparent distress HEENT: PERRL/EOMI, normal ENT inspection Respiratory: no respiratory distress, no accessory muscle use Gastrointestinal: normal bowel sounds, non tender, soft Genital/Rectal: normal genital exam (genitals appear normal, bilateral testicular tenderness without apparent swelling. The overlying scrotal skin is normal in appearance without cellulitis or wound.) Extremities: normal range of motion, non-tender Neurologic/Psychiatric: alert, normal mood/affect, oriented x 3 Skin: normal color, warm/dry Progress/Results/Core Measures Suspected Sepsis SIRS Temperature: Pulse: Respiratory Rate: Blood Pressure / Mean: Results/Orders Lab Results Laboratory Tests Test 01/21/20 12:29 Range/Units Urine Color YELLOW Urine Clarity CLEAR Urine pH 6.0 5-9 Urine Specific [place] 1.025 H 1.016-1.022 Urine Protein NEGATIVE NEGATIVE Urine Glucose (UA) NEGATIVE NEGATIVE Urine Ketones NEGATIVE NEGATIVE Urine Nitrite NEGATIVE NEGATIVE Urine Bilirubin NEGATIVE NEGATIVE Urine Urobilinogen 0.2 < = 1.0 MG/DL Urine Leukocyte Esterase NEGATIVE NEGATIVE Urine RBC (Auto) NEGATIVE NEGATIVE Urine RBC NONE /HPF Urine WBC 0-2 /HPF Urine Crystals NONE /LPF Urine Bacteria NEGATIVE /HPF Urine Casts NONE /LPF Urine Mucus NEGATIVE /LPF Urine Culture Indicated NO My Orders Orders - BIANCA CLAY APRN Ua Culture If Indicated (01/21/20 11:51) Us Scrotum (Testicle) [id number] (01/21/20 11:51) Vital Signs/I&O 01/21/20 11:11 Temp 36.0 Pulse 76 Resp 20 B/P (MAP) 127/66 (86) Pulse Ox 96 O2 Delivery Room Air Capillary Refill : Departure Communication (Admissions) NAME: ELOY CARROLL [facility] REC#: [id number] PT STATUS: REG ER : 1960 PHYSICIAN: BIANCA CLAY APRN ADMIT DATE: 01/21/20/ER Draft Date of Exam:01/21/20 US SCROTUM (Testicle) [id number] PROCEDURE: US Scrotum. TECHNIQUE: Multiple real-time grayscale images were obtained over the scrotum in various projections bilaterally. INDICATION: Testicular pain. The right testicle measures 2.6 x 3.5 x 3.2 cm and the left testicle measures 2.6 x 4.5 x 3.6 cm. Both testes show homogeneous echotexture. No discrete testicular mass is detected. There is blood flow to both testes. Right epididymis is unremarkable. There is a tiny area of decreased echogenicity involving the epididymal head on the left measuring approximately 8 mm x 9 mm, nonspecific. There is a small left hydrocele. No hydrocele on the right is seen. There is no varicocele. IMPRESSION: 1. No evidence of testicular mass or vascular compromise. 2. Small left hydrocele. 3. Small hypoechogenicity of left epididymal head, perhaps small epididymal cysts. Dictated on workstation # [id number] Dict: 01/21/20 1244 Trans: 01/21/20 1249 CV [id number] Interpreted by: CECE ATKINSON MD Electronically signed by: Impression Primary Impression: Hydrocele in adult Disposition: 01 HOME, SELF-CARE Condition: Stable Departure-Patient Inst. Decision time for Depature: 12:55 Referrals: JERRY PITT MD (PCP/Family) Primary Care Physician CARLYN MENDOZA MD Patient Instructions: Hydrocele/Varicocele (DC) Add. Discharge Instructions: That elevate the scrotum, continue with the ice packs for pain as well as Tylenol and ibuprofen for pain control. Call Dr. Mendoza today to make an appointment to be seen whenever he can see you. Return to ER for any worsening symptoms or other concerns. BIANCA CLAY APRN Jan 21, 2020 11:55
[2020-01-21 12:34] LABS: BILIRUBIN,URINE NEGATIVE (NEGATIVE); CLARITY,URINE CLEAR; COLOR,URINE YELLOW; GLUCOSE, URINE (UA) NEGATIVE (NEGATIVE); KETONES,URINE NEGATIVE (NEGATIVE); LEUKOCYTE ESTERASE ,URINE NEGATIVE (NEGATIVE); NITRITE,URINE NEGATIVE (NEGATIVE); PROTEIN,URINE NEGATIVE (NEGATIVE)
[2020-01-21 12:41] LABS: BACTERIA,URINE NEGATIVE /HPF; WBC,URINE 0-2 /HPF
--- NOTE | 2020-01-21 12:50 | Diagnostic Imaging Report ---
PROCEDURE: US Scrotum. TECHNIQUE: Multiple real-time grayscale images were obtained over the scrotum in various projections bilaterally. INDICATION: Testicular pain. The right testicle measures 2.6 x 3.5 x 3.2 cm and the left testicle measures 2.6 x 4.5 x 3.6 cm. Both testes show homogeneous echotexture. No discrete testicular mass is detected. There is blood flow to both testes. Right epididymis is unremarkable. There is a tiny area of decreased echogenicity involving the epididymal head on the left measuring approximately 8 mm x 9 mm, nonspecific. There is a small left hydrocele. No hydrocele on the right is seen. There is no varicocele. IMPRESSION: 1. No evidence of testicular mass or vascular compromise. 2. Small left hydrocele. 3. Small hypoechogenicity of left epididymal head, perhaps small epididymal cysts. Dictated by: Dictated on workstation # [id number]
[2020-01-21 13:07] VITALS: BP 127/66
== END 2020-01-21 13:07 | disposition home or self-care (01) ==
LOC: EDUNIT# 10:37 → ER 10:39
DX: N43.3 Hydrocele, unspecified (principal); I11.0 Hypertensive heart disease with heart failure; I50.9 Heart failure, unspecified; I25.10 Atherosclerotic heart disease of native coronary artery without angina pectoris; E78.00 Pure hypercholesterolemia, unspecified; F31.9 Bipolar disorder, unspecified; F17.210 Nicotine dependence, cigarettes, uncomplicated; Z95.5 Presence of coronary angioplasty implant and graft; Z79.82 Long term (current) use of aspirin
CPT/HCPCS: 76870; 81000

== ENCOUNTER 2020-02-03 09:20 | Emergency (ER) | payer MEDICAID ==
[~2020-02-03] VITALS: Ht 177.8 cm; Wt 90.7 kg
[~2020-02-03 09:20] MED LIST changes: -NICO-588 TD; +NICO-685 TD
[2020-02-03 09:34] LABS: BILIRUBIN,URINE NEGATIVE (NEGATIVE); CLARITY,URINE CLEAR; COLOR,URINE YELLOW; GLUCOSE, URINE (UA) NEGATIVE (NEGATIVE); KETONES,URINE NEGATIVE (NEGATIVE); LEUKOCYTE ESTERASE ,URINE TRACE (NEGATIVE); NITRITE,URINE NEGATIVE (NEGATIVE); PROTEIN,URINE NEGATIVE (NEGATIVE)
[2020-02-03] MEDS ORDERED: morphine INJ 10 MG/ML 1ML (SYR OR VIAL) IVP STA (09:36)
--- NOTE | 2020-02-03 09:41 | ED GU-Male ---
General Chief Complaint: Male Reproductive Stated Complaint: GROIN PAIN Source: patient Exam Limitations: no limitations History of Present Illness Date Seen by Provider: Feb 03, 2020 Time Seen by Provider: 09:22 Initial Comments Patient presents to the ER by private conveyance with chief complaint for the past 2 weeks he has had some intermittent pain that started in his right testicle and now 2 days ago started again in his left testicle. He had an ultrasound 2 weeks ago in the ER which was only revealing of a hydrocele. He had a follow-up appointment with Dr. MENDOZA, urology and labs all of which were normal. He was told not to worry about it but it started hurting again and ibuprofen and aspirin are only marginally helping his pain. He does have a history of stents in his leg due to peripheral arterial disease. He says sometimes his knees hurt and feel like they are going to give out but he is also been told they need replaced. He is not having any numbness or tingling. He is not having any chest pain shortness of air. No discharge or dysuria. No difficulty with bowel movements. No improvement of his symptoms with a bowel movement. He has had his appendix out. Allergies and Home Medications Allergies Coded Allergies: No Known Drug Allergies (Unverified , 02/22/17) Home Medications Amlodipine Besylate 5 Mg Tablet, 5 MG PO DAILY, (Reported) Aspirin 81 Mg Tablet.dr, 81 MG PO DAILY, (Reported) Atorvastatin Calcium 40 Mg Tablet, 40 MG PO DAILY, (Reported) Clopidogrel Bisulfate 75 Mg Tablet, 75 MG PO DAILY, (Reported) Cyclobenzaprine HCl 10 Mg Tablet, 10 MG PO PRN, (Reported) Divalproex Sodium 500 Mg Tablet.dr, 500 MG PO BID, (Reported) Hydrochlorothiazide 12.5 Mg Capsule, 12.5 MG PO DAILY, (Reported) Lisinopril 20 Mg Tablet, 20 MG PO DAILY, (Reported) Lurasidone HCl 80 Mg Tablet, 80 MG PO DAILY, (Reported) [place] 3 Polyunsat Fatty Acids 1,000 Mg Cap, 1,000 MG PO BID WITH MEALS, (Reported) Patient Home Medication List Home Medication List Reviewed: Yes Review of Systems Review of Systems Constitutional: No chills, No fever, No malaise EENTM: No ear discharge, No ear pain Respiratory: No cough, No short of breath Cardiovascular: No chest pain, No palpitations Gastrointestinal: No abdominal pain, No constipation, No diarrhea Genitourinary: see HPI; denies discharge, denies dysuria Musculoskeletal: No back pain, No joint pain Skin: No no symptoms reported, No rash Psychiatric/Neurological: Denies Anxiety, Denies Depressed All Other Systemes Reviewed Negative Unless Noted: Yes Past Nfduyli-Dctwje-Bxdtpm Hx Patient Social History Alcohol Use: Denies Use Number of Drinks Today: AA Alcohol Beverage of Choice: Beer Recreational Drug Use: No Smoking Status: Current Everyday Smoker Type Used: Cigarettes Former Smoker, Quit: Feb 21, 2017 Recent Hopitalizations: No Immunizations Up To Date Tetanus Booster (TDap): Unknown Date of Pneumonia Vaccine: Jan 22, 2012 Date of Influenza Vaccine: Nov 22, 2018 Seasonal Allergies Seasonal Allergies: No Past Medical History Surgeries: Yes (vasectomy, STENT IN RT LEG) Vascular Surgery, Vasectomy Respiratory: No Cardiac: No (STATES "HEART ATTACK IN THE PAST" X3, STENT RIGHT LEG) Coronary Artery Disease, Heart Attack, High Cholesterol, Hypertension, Periphe ral Vascular Neurological: No Genitourinary: No Gastrointestinal: No Musculoskeletal: No Endocrine: No HEENT: Yes Hearing Impairment: Hard of Hearing Cancer: No Psychosocial: Yes (alcohol abuse) Bipolar, Violent Behavior Integumentary: No Blood Disorders: No Family Medical History Patient reports no known family medical history. Physical Exam Vital Signs Vital Signs - First Documented 02/03/20 09:25 Temp 36.1 Pulse 81 Resp 18 B/P (MAP) 158/97 (117) Pulse Ox 95 O2 Delivery Room Air Capillary Refill : Height, Weight, BMI Height: 5'10.00" Weight: 200lbs. 0.0oz. [id number]; 28.00 BMI Method:Stated General Appearance: WD/WN, mild distress HEENT: PERRL/EOMI, pharynx normal Neck: full range of motion, normal inspection Cardiovascular: normal peripheral pulses, regular rate, rhythm Respiratory: no respiratory distress, no accessory muscle use Gastrointestinal: non tender, soft Male: normal genitalia, other (Negative for erythema, but tender bilateral testicles. No lesions discharge or nodules. Otherwise unremarkable scrotum contents. Bilateral inguinal canals cannot palpate protruding hernia on Valsalva maneuver.) Progress/Results/Core Measures Suspected Sepsis SIRS Temperature: Pulse: Respiratory Rate: Laboratory Tests 02/03/20 09:40: White Blood Count 5.9 Blood Pressure / Mean: Laboratory Tests 02/03/20 09:40: Creatinine 0.86, Platelet Count 268, Total Bilirubin 0.4 Results/Orders Lab Results Laboratory Tests Test 02/03/20 09:25 02/03/20 09:40 Range/Units Urine Color YELLOW Urine Clarity CLEAR Urine pH 6.0 5-9 Urine Specific [place] 1.020 1.016-1.022 Urine Protein NEGATIVE NEGATIVE Urine Glucose (UA) NEGATIVE NEGATIVE Urine Ketones NEGATIVE NEGATIVE Urine Nitrite NEGATIVE NEGATIVE Urine Bilirubin NEGATIVE NEGATIVE Urine Urobilinogen 1.0 < = 1.0 MG/DL Urine Leukocyte Esterase TRACE H NEGATIVE Urine RBC (Auto) NEGATIVE NEGATIVE Urine RBC NONE /HPF Urine WBC 2-5 /HPF Urine Squamous Epithelial Cells NONE /HPF Urine Renal Epithelial Cells NONE /HPF Urine Crystals NONE /LPF Urine Bacteria TRACE /HPF Urine Casts NONE /LPF Urine Mucus NEGATIVE /LPF Urine Culture Indicated NO White Blood Count 5.9 4.3-11.0 10^3/uL Red Blood Count 5.21 4.30-5.52 10^6/uL Hemoglobin 15.8 13.3-17.7 g/dL Hematocrit 47 40-54 % Mean Corpuscular Volume 89 80-99 fL Mean Corpuscular Hemoglobin 30 25-34 pg Mean Corpuscular Hemoglobin Concent 34 32-36 g/dL Red Cell Distribution Width 12.9 10.0-14.5 % Platelet Count 268 130-400 10^3/uL Mean Platelet Volume 9.6 9.0-12.2 fL Immature Granulocyte % (Auto) 0 % Neutrophils (%) (Auto) 59 42-75 % Lymphocytes (%) (Auto) 26 12-44 % Monocytes (%) (Auto) 9 0-12 % Eosinophils (%) (Auto) 5 0-10 % Basophils (%) (Auto) 1 0-10 % Neutrophils # (Auto) 3.5 1.8-7.8 10^3/uL Lymphocytes # (Auto) 1.5 1.0-4.0 10^3/uL Monocytes # (Auto) 0.5 0.0-1.0 10^3/uL Eosinophils # (Auto) 0.3 0.0-0.3 10^3/uL Basophils # (Auto) 0.0 0.0-0.1 10^3/uL Immature Granulocyte # (Auto) 0.0 0.0-0.1 10^3/uL Sodium Level 135 135-145 MMOL/L Potassium Level 4.4 3.6-5.0 MMOL/L Chloride Level 102 98-107 MMOL/L Carbon Dioxide Level 21 21-32 MMOL/L Anion Gap 12 5-14 MMOL/L Blood Urea Nitrogen 12 7-18 MG/DL Creatinine 0.86 0.60-1.30 MG/DL Estimat Glomerular Filtration Rate > 60 BUN/Creatinine Ratio 14 Glucose Level 103 70-105 MG/DL Calcium Level 8.8 8.5-10.1 MG/DL Corrected Calcium 8.6 8.5-10.1 MG/DL Total Bilirubin 0.4 0.1-1.0 MG/DL Aspartate Amino Transf (AST/SGOT) 17 5-34 U/L Alanine Aminotransferase (ALT/SGPT) 20 0-55 U/L Alkaline Phosphatase 70 40-136 U/L Total Protein 7.0 6.4-8.2 GM/DL Albumin 4.3 3.2-4.5 GM/DL My Orders Orders - LUIS ENRIQUE BECKER Ua Culture If Indicated (02/03/20 09:22) Cbc With Automated Diff (02/03/20 09:36) Comprehensive Metabolic Panel (02/03/20 09:36) Morphine Injection (Morphine Injection (02/03/20 09:36) Lactated Ringers (Lr 1000 Ml Iv Solution (02/03/20 11:30) Lactated Ringers (Lr 1000 Ml Iv Solution (02/03/20 11:26) Cta Aorta W [place] Runoff W/Wo (02/03/20 11:27) Iohexol Injection (Omnipaque 350 Mg/Ml 1 (02/03/20 12:30) Received Contrast (Hold Metformin- Contr (02/03/20 12:30) Ns (Ivpb) (Sodium Chloride 0.9% Ivpb Bag (02/03/20 12:30) Medications Given in ED Current Medications Medications Dose Ordered Sig/Javier Route Start Time Stop Time Status Last Admin Dose Admin Iohexol 150 ml ONCE ONCE IV 02/03/20 12:30 02/03/20 12:31 DC 02/03/20 12:19 140 ML Lactated Ringer's 1,000 ml @ 0 mls/hr Q0M ONCE IV 02/03/20 11:30 02/03/20 11:31 DC 02/03/20 11:29 1,000 MLS/HR Sodium Chloride 100 ml ONCE ONCE IV 02/03/20 12:30 02/03/20 12:31 DC 02/03/20 12:19 80 ML Vital Signs/I&O 02/03/20 09:25 Temp 36.1 Pulse 81 Resp 18 B/P (MAP) 158/97 (117) Pulse Ox 95 O2 Delivery Room Air Capillary Refill : Progress Note #1: Time: 09:38 Progress Note After reviewing the ultrasound he has a hydrocele but no evidence of vascular compromise. On physical exam today does not seem to be any different than 2 weeks ago. He has unremarkable scrotum contents and uncircumcised penis without discharge or pain. No lesions. No discoloration. Suspect this could be a re ferred pain such as from a inguinal hernia or far less likely vascular compromise. Plan to check some basic labs and if he can tolerate a CT angiogram of his abdomen and pelvis with runoffs we can rule out significant compromise. If that is the case then I would refer him to general surgery. Cannot feel at this time a palpable inguinal hernia on Valsalva maneuver on either side. Progress Note #2: Time: 13:18 Progress Note No acute arterial findings on the CT angiogram. Suspect that this is maybe referred pain from hernia and w we will refer him to Dr. IRVING, general surgery for clinical exam. Diagnostic Imaging Diagonstic Imaging: CT (Angiogram) Plain Films/CT/US/NM/MRI: abdomen, pelvis Comments NAME: ELOY CARROLL [facility] REC#: [id number] PT STATUS: REG ER : 1960 PHYSICIAN: LUIS ENRIQUE BECKER MD ADMIT DATE: 02/03/20/ER Signed Date of Exam:02/03/20 CTA AORTA W BRAXTON RUNOFF W/WO CTA AORTA W BRAXTON RUNOFF W/WO Technique: CT imaging of the abdomen, pelvis and bilateral lower extremity's was performed without and with IV contrast for the angiogram protocol. 3-D MIP reformats are created and submitted. Automatic exposure controls were utilized to keep dose as low as reasonably achievable. Indication: Right groin pain. Peripheral arterial disease. Comparison: None available. Findings: Aorta: Abdominal aorta is normal in caliber without dissection or penetrating atherosclerotic ulcer. The celiac, superior mesenteric, bilateral renal and inferior mesenteric arteries are patent. The bilateral common and external iliac arteries are normal. Right lower extremity: Common femoral artery is normal. The profunda and femoris branches are widely patent. There is no stenosis within the superficial femoral artery. There is a stent in the distal superficial femoral artery at the level of the adductor canal. The stent is patent and extends throughout the popliteal artery. The anterior tibial artery is occluded at its proximal aspect. The posterior tibial and peroneal veins are patent to the level of the ankle. Left lower extremity: Common femoral artery is normal. Profunda femoris branches are patent centrally. Superficial femoral artery is patent throughout its entirety without stenosis. 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 Conventional 3 vessel runoff to the level of the ankle. Other: Lung bases are clear. Allowing for the phase of contrast, the liver, gallbladder, spleen and pancreas are normal. No adrenal mass. Large exophytic cyst in the lower pole of the left kidney measures 5.8 x 4.9 cm. Urinary bladder is normally filled. Prostate is unremarkable. No abdominal or pelvic lymphadenopathy. No bowel obstruction or pericolonic inflammation. Impression: 1. No abdominal aortic aneurysm or dissection. 2. No arterial occlusion or stenosis in the lower legs. The right superficial femoral-popliteal stent is widely patent. 3. 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 4. No acute abnormality in the abdomen or pelvis. Dictated by: Dictated on workstation # [id number] Dict: 02/03/20 1223 Trans: 02/03/20 1252 CV [id number] Interpreted by: SRUTHI YOU MD Electronically signed by: SRUTHI YOU MD 02/03/20 1252 Reviewed: Reviewed by Wi Departure Impression Primary Impression: Left testicular pain Additional Impression: Suspect Inguinal Hernia Disposition: 01 HOME, SELF-CARE Condition: Stable Departure-Patient Inst. Decision time for Depature: 13:20 Referrals: JERRY PITT MD (PCP/Family) Primary Care Physician Patient Instructions: Inguinal and Femoral (Groin) Hernias Add. Discharge Instructions: Tramadol 1 tablet up to 4 times a day as necessary for intractable pain. Tylenol 1000 mg every 8 hours as necessary for pain. Warm moist heat. Avoid lifting and twisting. Contact Dr. Irving's clinic and request a follow-up appointment to discuss the possibility of an inguinal hernia. All discharge instructions reviewed with patient and/or family. Voiced understan jimmy. Scripts Tramadol HCl (Tramadol HCl) 50 Mg Tablet 50 MG PO Q6H PRN for PAIN for 3 Days, #15 TAB 0 Refills Prov: LUIS ENRIQUE BECKER 02/03/20 Copy Copies To 1: GENO IRVING MD, TITUS J Feb 03, 2020 09:41
[2020-02-03 09:42] LABS: BACTERIA,URINE TRACE /HPF
[2020-02-03 09:48] LABS: BASOPHILS % (AUTO) 1 % (0-10); EOSINOPHILS # (AUTO) 0.3 10^3/uL (0.0-0.3); EOSINOPHILS % (AUTO) 5 % (0-10); HEMATOCRIT 47 % (40-54); HEMOGLOBIN 15.8 g/dL (13.3-17.7); LYMPHOCYTES # (AUTO) 1.5 10^3/uL (1.0-4.0); LYMPHOCYTES % (AUTO) 26 % (12-44); MEAN CORPUSCULAR HEMOGLOBIN 30 pg (25-34); MEAN CORPUSCULAR HGB CONC 34 g/dL (32-36); MEAN CORPUSCULAR VOLUME 89 fL (80-99); MEAN PLATELET VOLUME 9.6 fL (9.0-12.2); MONOCYTES # (AUTO) 0.5 10^3/uL (0.0-1.0); MONOCYTES % (AUTO) 9 % (0-12); NEUTROPHILS # (AUTO) 3.5 10^3/uL (1.8-7.8); NEUTROPHILS % (AUTO) 59 % (42-75); PLATELET COUNT 268 10^3/uL (130-400); WHITE BLOOD COUNT 5.9 10^3/uL (4.3-11.0)
[2020-02-03 10:06] LABS: ALBUMIN 4.3 GM/DL (3.2-4.5); CHLORIDE 102 MMOL/L (98-107); POTASSIUM 4.4 MMOL/L (3.6-5.0); SODIUM 135 MMOL/L (135-145)
[2020-02-03 10:08] LABS: CALCIUM 8.8 MG/DL (8.5-10.1)
[2020-02-03 10:09] LABS: GLUCOSE 103 MG/DL (70-105)
[2020-02-03 10:10] LABS: CARBON DIOXIDE 21 MMOL/L (21-32)
[2020-02-03 10:11] LABS: BILIRUBIN,TOTAL 0.4 MG/DL (0.1-1.0)
[2020-02-03 10:12] LABS: ALKALINE PHOSPHATASE 70 U/L (40-136); CREATININE SERUM 0.86 MG/DL (0.60-1.30); GFR ESTIMATED > 60
[2020-02-03 10:13] LABS: BUN/CREATININE RATIO 14
[2020-02-03 10:15] LABS: ALANINE AMINOTRANSFERASE 20 U/L (0-55)
[2020-02-03] MEDS ORDERED: LACTATED RINGERS 1,000 ML IV ONE ×2 (11:26→11:30)
[2020-02-03] MEDS ORDERED: HOLD METFORMIN - RECEIVED CONTRAST 20 ML VIAL IV SCH (12:30)
[2020-02-03] MEDS ORDERED: IOHEXOL 350 MG/ML 150 ML (OMNIPAQUE 350) VIAL IV ONE (12:30)
[2020-02-03] MEDS ORDERED: NS 100 ML (IVPB) BAG IV ONE (12:30)
--- NOTE | 2020-02-03 12:33 | Diagnostic Imaging Report ---
CTA AORTA W BRAXTON RUNOFF W/WO Technique: CT imaging of the abdomen, pelvis and bilateral lower extremity's was performed without and with IV contrast for the angiogram protocol. 3-D MIP reformats are created and submitted. Automatic exposure controls were utilized to keep dose as low as reasonably achievable. Indication: Right groin pain. Peripheral arterial disease. Comparison: None available. Findings: Aorta: Abdominal aorta is normal in caliber without dissection or penetrating atherosclerotic ulcer. The celiac, superior mesenteric, bilateral renal and inferior mesenteric arteries are patent. The bilateral common and external iliac arteries are normal. Right lower extremity: Common femoral artery is normal. The profunda and femoris branches are widely patent. There is no stenosis within the superficial femoral artery. There is a stent in the distal superficial femoral artery at the level of the adductor canal. The stent is patent and extends throughout the popliteal artery. The anterior tibial artery is occluded at its proximal aspect. The posterior tibial and peroneal veins are patent to the level of the ankle. Left lower extremity: Common femoral artery is normal. Profunda femoris branches are patent centrally. Superficial femoral artery is patent throughout its entirety without stenosis. 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 Conventional 3 vessel runoff to the level of the ankle. Other: Lung bases are clear. Allowing for the phase of contrast, the liver, gallbladder, spleen and pancreas are normal. No adrenal mass. Large exophytic cyst in the lower pole of the left kidney measures 5.8 x 4.9 cm. Urinary bladder is normally filled. Prostate is unremarkable. No abdominal or pelvic lymphadenopathy. No bowel obstruction or pericolonic inflammation. Impression: 1. No abdominal aortic aneurysm or dissection. 2. No arterial occlusion or stenosis in the lower legs. The right superficial femoral-popliteal stent is widely patent. 3. 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 4. No acute abnormality in the abdomen or pelvis. Dictated by: Dictated on workstation # [id number]
[2020-02-03] MEDS ORDERED: TRM50T PO (13:21)
[2020-02-03 13:33] VITALS: BP 143/87
== END 2020-02-03 13:33 | disposition home or self-care (01) ==
LOC: EDUNIT# 09:20 → ER 09:21
DX: N50.812 Left testicular pain (principal); I25.2 Old myocardial infarction; E78.00 Pure hypercholesterolemia, unspecified; I10 Essential (primary) hypertension; F31.9 Bipolar disorder, unspecified; I25.10 Atherosclerotic heart disease of native coronary artery without angina pectoris; F17.210 Nicotine dependence, cigarettes, uncomplicated; Z79.82 Long term (current) use of aspirin
CPT/HCPCS: 36415; 75635; 80053; 81000; 85025

== ENCOUNTER → 2020-03-13 | Outpatient (CLI) | payer MEDICAID ==
[2020-03-13 12:19] LABS: BUN/CREATININE RATIO 19; CREATININE SERUM 0.84 MG/DL (0.60-1.30); GFR ESTIMATED > 60
--- NOTE | 2020-03-13 14:07 | Diagnostic Imaging Report ---
EXAMINATION: CT Chest without contrast (lung screening). TECHNIQUE: Multiple contiguous axial images were obtained through the chest without the use of intravenous contrast according to lung cancer screening protocol. All CT scans use one or more of the following dose optimizing techniques: automated exposure control, MA and/or KvP adjustment based on a patient size and exam type, or iterative reconstruction. HISTORY: 39 pack year history of smoking. COMPARISON: 01/19/2019. FINDINGS: There is no edema or pneumonia. No pleural effusion. No pneumothorax. No suspicious nodules. There is no axillary or supraclavicular lymphadenopathy. There is no mediastinal lymphadenopathy. Heart size is normal. There are mild coronary artery calcifications. No pericardial effusion. Aorta is normal in caliber. Limited views of the upper abdomen are unremarkable. There are no suspicious osseous lesions. IMPRESSION: 1. No suspicious pulmonary nodules. LUNG-RADS CATEGORY: 1 MODIFIER: None. Dictated by: Dictated on workstation # [id number]
== END ==
LOC: RAD 11:49
PROVIDERS: ATTEND Family Medicine
DX: F17.210 Nicotine dependence, cigarettes, uncomplicated (principal)
CPT/HCPCS: 36415; 71271; 82565; 84520

== ENCOUNTER 2020-07-15 10:50 | Emergency (ER) | payer MEDICAID ==
[~2020-07-15] VITALS: Ht 177.8 cm; Wt 90.7 kg
[~2020-07-15 10:50] MED LIST changes: +DIPH-958 PO; -DIPH25CA45 PO; -LISI-552 PO; +LISI20TA26 PO
[2020-07-15] MEDS ORDERED: LIDOCAINE 1% INJ 20 ML 20 ML VIAL INJ ONE (12:15)
--- NOTE | 2020-07-15 12:22 | ED Lower Extremity ---
General Chief Complaint: Lower Extremity Stated Complaint: L LEG SWELLING Nursing Triage Note: PT TO ROOM FT2 WITH C/O LEFT KNEE PAIN AND SWELLING. 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 Nursing Sepsis Screen: No Definite Risk Source: patient Exam Limitations: no limitations History of Present Illness Date Seen by Provider: July 15, 2020 Time Seen by Provider: 12:21 Initial Comments Insidious onset of left knee pain and swelling no known injury. No fevers or chills. Onset: just prior to arrival Severity: moderate Pain/Injury Location: left knee Method of Injury: unknown Modifying Factors: Worse With Movement Allergies and Home Medications Allergies Coded Allergies: No Known Drug Allergies (Unverified , 02/22/17) Home Medications Amlodipine Besylate 5 Mg Tablet, 5 MG PO DAILY, (Reported) Aspirin 81 Mg Tablet.dr, 81 MG PO DAILY, (Reported) Atorvastatin Calcium 40 Mg Tablet, 40 MG PO DAILY, (Reported) Clopidogrel Bisulfate 75 Mg Tablet, 75 MG PO DAILY, (Reported) Cyclobenzaprine HCl 10 Mg Tablet, 10 MG PO PRN, (Reported) Divalproex Sodium 500 Mg Tablet.dr, 500 MG PO BID, (Reported) Hydrochlorothiazide 12.5 Mg Capsule, 12.5 MG PO DAILY, (Reported) Lisinopril 20 Mg Tablet, 20 MG PO DAILY, (Reported) Lurasidone HCl 80 Mg Tablet, 80 MG PO DAILY, (Reported) [place] 3 Polyunsat Fatty Acids 1,000 Mg Cap, 1,000 MG PO BID WITH MEALS, (Reported) Prednisone 20 Mg Tab, 40 MG PO DAILY Prescribed by: BIANCA CLAY on 07/15/20 1316 Tramadol HCl 50 Mg Tablet, 50 MG PO Q6H PRN for PAIN Prescribed by: LUIS ENRIQUE BECKER on 02/03/20 1322 Patient Home Medication List Home Medication List Reviewed: Yes Review of Systems Constitutional: see HPI EENTM: see HPI Respiratory: no symptoms reported Cardiovascular: no symptoms reported Genitourinary: no symptoms reported Musculoskeletal: see HPI Skin: no symptoms reported Psychiatric/Neurological: No Symptoms Reported Past Jlnxcku-Ajevni-Famjcp Hx Patient Social History Alcohol Use: Denies Use Number of Drinks Today: AA Alcohol Beverage of Choice: Beer Smoking Status: Current Everyday Smoker Type Used: Cigarettes Former Smoker, Quit: Feb 21, 2017 Recent Infectious Disease Expo: No Recent Hopitalizations: No Immunizations Up To Date Tetanus Booster (TDap): Unknown Date of Pneumonia Vaccine: Jan 22, 2012 Date of Influenza Vaccine: Nov 22, 2018 Seasonal Allergies Seasonal Allergies: No Past Medical History Surgeries: Yes (vasectomy, STENT IN RT LEG) Vascular Surgery, Vasectomy Respiratory: No Cardiac: No (STATES "HEART ATTACK IN THE PAST" X3, STENT RIGHT LEG) Coronary Artery Disease, Heart Attack, High Cholesterol, Hypertension, Peripheral Vascular Neurological: No Genitourinary: No Gastrointestinal: No Musculoskeletal: No Endocrine: No HEENT: Yes Hearing Impairment: Hard of Hearing Cancer: No Psychosocial: Yes (alcohol abuse) Bipolar, Violent Behavior Integumentary: No Blood Disorders: No Family Medical History Patient reports no known family medical history. Physical Exam Vital Signs Vital Signs - First Documented 07/15/20 11:12 Temp 36.5 Pulse 76 Resp 16 B/P (MAP) 158/85 (109) O2 Delivery Room Air Capillary Refill : Less Than 3 Seconds Height, Weight, BMI Height: 5'10.00" Weight: 200lbs. 0.0oz. [id number]; 28.00 BMI Method:Stated General Appearance: WD/WN, no apparent distress Neck: non-tender, full range of motion Respiratory: no respiratory distress, no accessory muscle use Hips: bilateral hip non-tender, bilateral hip normal inspection, bilateral hip normal range of motion Legs: bilateral leg non-tender, bilateral leg normal inspection, bilateral leg normal range of motion Knees: left knee pain, left knee soft tissue tenderness, left knee swelling Ankles: bilateral ankle non-tender, bilateral ankle normal inspection, bilateral ankle normal range of motion Feet: bilateral foot non-tender, bilateral foot normal inspection, bilateral foot normal range of motion Neurologic/Psychiatric: alert, normal mood/affect, oriented x 3 Skin: normal color, warm/dry Procedures/Interventions Additional Procedures: Arthrocentesis Aspirating Progress Knee aspiration: Area was identified 1 cmsuperior and 1 cm lateral to the doe perior and lateral border of the patella on the left side. This was cleansed with Betadine which was allowed to dry then anesthetized with 1 mL of 1% lidocaine without epinephrine. Then a larger 18-gauge needle was inserted. Able to aspirate 37 mL of fluid out of the knee. Initially clear straw-colored and towards the end became more bloody. Progress/Results/Core Measures Results/Orders Lab Results Laboratory Tests Test 07/15/20 12:36 Range/Units My Orders Orders - BIANCA CLAY APRN Knee, Left, 3 Views (07/15/20 11:55) Body Fluid Cell Count (07/15/20 12:11) Crystals,Body Fluid (07/15/20 12:11) Body Fluid Culture (07/15/20 12:11) Lidocaine 1% Inj 20 Ml (Xylocaine 1% Inj (07/15/20 12:15) Ketorolac Injection (Toradol Injection) (07/15/20 12:45) Medications Given in ED Current Medications Medications Dose Ordered Sig/Javier Route Start Time Stop Time Status Last Admin Dose Admin Ketorolac Tromethamine 30 mg ONCE ONCE IM 07/15/20 12:45 07/15/20 12:46 DC 07/15/20 13:07 30 MG Lidocaine HCl 20 ml ONCE ONCE INJ 07/15/20 12:15 07/15/20 12:16 DC 07/15/20 12:30 20 ML Vital Signs/I&O 07/15/20 11:12 Temp 36.5 Pulse 76 Resp 16 B/P (MAP) 158/85 (109) O2 Delivery Room Air Blood Pressure Mean: 109 Departure Communication (Admissions) Family Conversation 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 However he has a dorsalis pedis pulse +1 in strength on the left and nonpalpable on the right but both feet have brisk capillary refill and are the same temperature. No pain in the lower leg. The knee feels better after draining the fluid. This is not an ischemic cause of pain. We'll have him follow-up with primary care. NAME: ELOY CARROLL [facility] REC#: [id number] PT STATUS: REG ER : 1960 PHYSICIAN: BIANCA CLAY APRN ADMIT DATE: 07/15/20/ER Draft Date of Exam:07/15/20 KNEE, LEFT, 3 VIEWS INDICATION: Posterior knee pain. COMPARISON: None available. TECHNIQUE: Three views of the left knee. FINDINGS: No fracture or osseous erosions. Trace knee joint effusion. Incompletely rim calcified tubular structure posterior to the knee. A flabella is present. IMPRESSION: 1. No acute osseous abnormality. 2. Calcifications posterior to the knee could be within the popliteal artery aneurysm. Recommend CTA runoff of the bilateral lower extremities for further assessment. Dictated on workstation # [id number] Dict: 07/15/20 1302 Trans: 07/15/20 1308 [facility] [id number] Interpreted by: SRUTHI YOU MD Electronically signed by: Impression Primary Impression: Effusion, left knee Disposition: HOME, SELF-CARE Condition: Stable Departure-Patient Inst. Decision time for Depature: 12:39 Referrals: JERRY PITT MD (PCP/Family) Primary Care Physician Patient Instructions: Swollen Joints Add. Discharge Instructions: 1. Take steroids as directed 2. Return to ER for any concerns 3. There are calcifications within the popliteal artery at the backside of the knee. Radiology recommends a CT scan with contrast to further evaluate this. Follow-up with your family doctor this week to schedule this. All discharge instructions reviewed with patient and/or family. Voiced understanding. Scripts Prednisone (Prednisone) 20 Mg Tab 40 MG PO DAILY, #8 TAB Prov: BIANCA CLAY APRN 07/15/20 Copy Copies To 1: JERRY PITT MD, PETER J APRN July 15, 2020 12:22
[2020-07-15] MEDS ORDERED: KETOROLAC 30 MG/ML VIAL IM ONE (12:45)
--- NOTE | 2020-07-15 13:09 | Diagnostic Imaging Report ---
INDICATION: Posterior knee pain. COMPARISON: None available. TECHNIQUE: Three views of the left knee. FINDINGS: No fracture or osseous erosions. Trace knee joint effusion. Incompletely rim calcified tubular structure posterior to the knee. A flabella is present. IMPRESSION: 1. No acute osseous abnormality. 2. Calcifications posterior to the knee could be within the popliteal artery aneurysm. Recommend CTA runoff of the bilateral lower extremities for further assessment. Dictated by: Dictated on workstation # [id number]
[2020-07-15] MEDS ORDERED: PRD20T PO (13:16)
[2020-07-15 13:27] VITALS: BP 140/75
[2020-07-15 13:44] LABS: BODY FLUID APPEARENCE SLT CLDY; BODY FLUID COLOR YELLOW; BODY FLUID RBC COUNT 368 /uL; BODY FLUID SOURCE SYNOVIAL; BODY FLUID WBC TOTAL COUNT 475 /uL
[2020-07-15 14:31] LABS: BF OTHER CELLS 0 %; LYMPHOCYTES,BODY FLUID 31 %
== END 2020-07-15 13:27 | disposition home or self-care (01) ==
LOC: EDUNIT# 10:50 → ER 10:51
DX: M25.462 Effusion, left knee (principal); I11.0 Hypertensive heart disease with heart failure; I50.9 Heart failure, unspecified; I25.10 Atherosclerotic heart disease of native coronary artery without angina pectoris; E78.00 Pure hypercholesterolemia, unspecified; F31.9 Bipolar disorder, unspecified; F17.210 Nicotine dependence, cigarettes, uncomplicated; Z79.82 Long term (current) use of aspirin; Z79.899 Other long term (current) drug therapy
CPT/HCPCS: 73562; 87070; 87205; 89051; 89060

== ENCOUNTER → 2020-07-25 | Outpatient (CLI) | payer MEDICAID ==
[~2020-07-25] MED LIST changes: +ACHD5005 PO; +HOLD METFORMIN - RECEIVED CONTRAST 20 ML VIAL IV SCH; +IOHEXOL 350 MG/ML 100 ML (OMNIPAQUE 350) VIAL IV ONE; +NS 100 ML (IVPB) BAG IV ONE; +PRD20T PO
[2020-07-25 16:04] LABS: ALANINE AMINOTRANSFERASE 16 U/L (0-55); ALBUMIN 3.9 GM/DL (3.2-4.5); ALKALINE PHOSPHATASE 87 U/L (40-136); BILIRUBIN,TOTAL 0.3 MG/DL (0.1-1.0); BUN/CREATININE RATIO 14; CALCIUM 9.1 MG/DL (8.5-10.1); CARBON DIOXIDE 23 MMOL/L (21-32); CHLORIDE 103 MMOL/L (98-107); CREATININE SERUM 0.86 MG/DL (0.60-1.30); GFR ESTIMATED > 60; GLUCOSE 108 MG/DL (70-105); POTASSIUM 4.4 MMOL/L (3.6-5.0); SODIUM 136 MMOL/L (135-145); TOTAL PROTEIN 6.4 GM/DL (6.4-8.2)
--- NOTE | 2020-07-25 17:29 | Diagnostic Imaging Report ---
Examination: CT angiogram of the left lower extremity. HISTORY: Popliteal artery aneurysm. TECHNIQUE: CT angiogram images of the left lower extremity from the mid thigh to the foot were obtained with MIP reconstructions. All CT scans use one or more of the following dose optimizing techniques: automated exposure control, MA and/or KvP adjustment based on a patient size and exam type, or iterative reconstruction. COMPARISON: 02/03/2020. FINDINGS: Left superficial femoral artery is normal. 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 It is unchanged in size compared to prior study. There is increased luminal narrowing due to the increase in the amount of mural thrombus with the lumen compressed to 3 mm thickness and 8mm width at its narrowest portion. The tibioperoneal trunk is normal. The anterior tibial artery is normal. The posterior tibial artery is normal. The peroneal artery is normal. There is two-vessel runoff to the ankle with the anterior tibial and posterior tibial giving rise to the dorsalis pedis and plantar artery respectively. There is extensive edema through the left lower extremity. There is a posterior compartment fluid collection with internal high attenuation measuring 4.9 x 2.3 cm which may represent a hematoma with internal blood clot. The veins of the left lower extremity are not well evaluated due to phase of contrast. There is narrowing of popliteal vein which is new from prior exam which may be due to compression from the overlying hematoma or thrombosis. There are no suspicious osseus lesions. IMPRESSION: 1. 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 2. New fluid collection with internal high attenuation in the popliteal fossa likely representing a hematoma, less likely a Shepherd's cyst. 3. Narrowing of popliteal vein which may be due to compression by the fluid collection versus thrombosis. Veins are not well evaluated due to phase of contrast. Dictated by: Dictated on workstation # [id number]
== END ==
LOC: RAD 15:30
PROVIDERS: ATTEND Family Medicine
DX: I72.4 Aneurysm of artery of lower extremity (principal)
CPT/HCPCS: 36415; 73706; 80053

== ENCOUNTER 2020-07-28 15:18 | Emergency (ER) | payer MEDICAID ==
[~2020-07-28] VITALS: Ht 175 cm; Wt 77.0 kg
[~2020-07-28 15:18] MED LIST changes: -ACHD5005 PO; -HOLD METFORMIN - RECEIVED CONTRAST 20 ML VIAL IV SCH; -IOHEXOL 350 MG/ML 100 ML (OMNIPAQUE 350) VIAL IV ONE; -NS 100 ML (IVPB) BAG IV ONE
[2020-07-28] MEDS ORDERED: HYDROcodone/APAP 5 MG/325 MG (LORTAB) TAB PO ONE (15:30)
--- NOTE | 2020-07-28 15:33 | ED Lower Extremity ---
General Stated Complaint: L LEG PAIN/SWELLING Source: patient Exam Limitations: no limitations History of Present Illness Date Seen by Provider: Jul 28, 2020 Time Seen by Provider: 15:28 Initial Comments To ER with left knee pain left leg swelling. He was seen here for the same about a week and a half ago. I saw him there was a palpable effusion. I was a ble to aspirate 37 mL of fluid off the knee. There was no growth from this fluid. On plain films he was noted to have some calcifications in the popliteal fossa which could be related to the known popliteal artery aneurysm. Dr. Pitt then ordered a CT of the aorta with bilateral runoffs. There was popliteal aneurysm with thrombus in it but not totally occlusive. Onset: last week Severity: moderate Pain/Injury Location: left leg Method of Injury: unknown Modifying Factors: Improves With Movement Allergies and Home Medications Allergies Coded Allergies: No Known Drug Allergies (Unverified , 02/22/17) Home Medications Amlodipine Besylate 5 Mg Tablet, 5 MG PO DAILY, (Reported) Aspirin 81 Mg Tablet.dr, 81 MG PO DAILY, (Reported) Atorvastatin Calcium 40 Mg Tablet, 40 MG PO DAILY, (Reported) Clopidogrel Bisulfate 75 Mg Tablet, 75 MG PO DAILY, (Reported) Cyclobenzaprine HCl 10 Mg Tablet, 10 MG PO PRN, (Reported) Divalproex Sodium 500 Mg Tablet.dr, 500 MG PO BID, (Reported) Hydrochlorothiazide 12.5 Mg Capsule, 12.5 MG PO DAILY, (Reported) Lisinopril 20 Mg Tablet, 20 MG PO DAILY, (Reported) Lurasidone HCl 80 Mg Tablet, 80 MG PO DAILY, (Reported) [place] 3 Polyunsat Fatty Acids 1,000 Mg Cap, 1,000 MG PO BID WITH MEALS, (Reported) Prednisone 20 Mg Tab, 40 MG PO DAILY Prescribed by: BIANCA CLAY on 07/15/20 1316 Tramadol HCl 50 Mg Tablet, 50 MG PO Q6H PRN for PAIN Prescribed by: LUIS ENRIQUE BECKER on 02/03/20 1322 Patient Home Medication List Home Medication List Reviewed: Yes Review of Systems Constitutional: see HPI EENTM: see HPI Respiratory: no symptoms reported Cardiovascular: no symptoms reported Genitourinary: no symptoms reported Musculoskeletal: see HPI Skin: no symptoms reported Past Klkkwpt-Pfghmf-Pgtdhd Hx Patient Social History Alcohol Beverage of Choice: Beer Type Used: Cigarettes Former Smoker, Quit: Feb 21, 2017 Recent Hopitalizations: No Immunizations Up To Date Tetanus Booster (TDap): Unknown Date of Pneumonia Vaccine: Jan 22, 2012 Date of Influenza Vaccine: Nov 22, 2018 Seasonal Allergies Seasonal Allergies: No Past Medical History Surgeries: Yes (vasectomy, STENT IN RT LEG) Vascular Surgery, Vasectomy Respiratory: No Cardiac: No (STATES "HEART ATTACK IN THE PAST" X3, STENT RIGHT LEG) Coronary Artery Disease, Heart Attack, High Cholesterol, Hypertension, Peripheral Vascular Neurological: No Genitourinary: No Gastrointestinal: No Musculoskeletal: No Endocrine: No HEENT: Yes Hearing Impairment: Hard of Hearing Cancer: No Psychosocial: Yes (alcohol abuse) Bipolar, Violent Behavior Integumentary: No Blood Disorders: No Family Medical History Patient reports no known family medical history. Physical Exam Vital Signs Vital Signs - First Documented 07/28/20 15:23 Temp 36.1 Pulse 79 Resp 16 B/P (MAP) 165/95 (118) O2 Delivery Room Air Capillary Refill : Height, Weight, BMI Height: 5'10.00" Weight: 200lbs. 0.0oz. [id number]; 28.00 BMI Method:Stated General Appearance: WD/WN, no apparent distress HEENT: PERRL/EOMI Neck: non-tender, full range of motion Respiratory: no respiratory distress, no accessory muscle use Hips: bilateral hip non-tender, bilateral hip normal inspection, bilateral hip normal range of motion Legs: bilateral leg non-tender, bilateral leg normal inspection, bilateral leg normal range of motion Knees: left knee pain (left popliteal pain tender to palp) Ankles: bilateral ankle non-tender, bilateral ankle normal inspection, bilateral ankle normal range of motion Feet: bilateral foot non-tender, bilateral foot normal inspection, bilateral foot normal range of motion Neurologic/Psychiatric: alert, normal mood/affect, oriented x 3 Skin: normal color, warm/dry There is a palpable 2+ in strength DP pulse on left. Nonpalpable on right. Both lower extremities are warm. There is No arterial occlusion. There is some fullness behind the left knee. There is some trace edema of left lower leg from knee to ankle but no erythema. anterior knee has a normal appearance. When he walks the pain is behind his left knee and down the left calf. Procedures/Interventions Additional Procedures: Arthrocentesis Aspirating Progress an area was identified 1 cm superior and lateral to the superior lateral border of the patella. This was scrubbed with Betadine solution which was allowed to dry then 2 mL of 1% lidocaine without epinephrine was used to anesthetize a tract for the large-bore needle. An 18-gauge 1/2 inch needle was then inserted at this location named posterior and inferior. Small amount of serous synovial fluid was aspirated and then 6 mL of 1% lidocaine with epinephrine +40 mg of triamcinolone were instilled into the synovial space. Progress/Results/Core Measures Results/Orders Lab Results Laboratory Tests Test 07/28/20 15:35 Range/Units White Blood Count 9.6 4.3-11.0 10^3/uL Red Blood Count 5.18 4.30-5.52 10^6/uL Hemoglobin 15.8 13.3-17.7 g/dL Hematocrit 47 40-54 % Mean Corpuscular Volume 90 80-99 fL Mean Corpuscular Hemoglobin 31 25-34 pg Mean Corpuscular Hemoglobin Concent 34 32-36 g/dL Red Cell Distribution Width 13.0 10.0-14.5 % Platelet Count 338 130-400 10^3/uL Mean Platelet Volume 9.2 9.0-12.2 fL Immature Granulocyte % (Auto) 0 % Neutrophils (%) (Auto) 75 42-75 % Lymphocytes (%) (Auto) 16 12-44 % Monocytes (%) (Auto) 6 0-12 % Eosinophils (%) (Auto) 3 0-10 % Basophils (%) (Auto) 1 0-10 % Neutrophils # (Auto) 7.2 1.8-7.8 10^3/uL Lymphocytes # (Auto) 1.5 1.0-4.0 10^3/uL Monocytes # (Auto) 0.6 0.0-1.0 10^3/uL Eosinophils # (Auto) 0.3 0.0-0.3 10^3/uL Basophils # (Auto) 0.1 0.0-0.1 10^3/uL Immature Granulocyte # (Auto) 0.0 0.0-0.1 10^3/uL Sodium Level 137 135-145 MMOL/L Potassium Level 3.8 3.6-5.0 MMOL/L Chloride Level 104 98-107 MMOL/L Carbon Dioxide Level 22 21-32 MMOL/L Anion Gap 11 5-14 MMOL/L Blood Urea Nitrogen 12 7-18 MG/DL Creatinine 0.84 0.60-1.30 MG/DL Estimat Glomerular Filtration Rate > 60 BUN/Creatinine Ratio 14 Glucose Level 127 H 70-105 MG/DL Calcium Level 9.1 8.5-10.1 MG/DL My Orders Orders - BIANCA CLAY APRN Us Left Low Ext Arterial [id number] (07/28/20 15:21) Us Venous Lower Ext Lt (07/28/20 15:21) Cbc With Automated Diff (07/28/20 15:21) Basic Metabolic Panel (07/28/20 15:21) Hydrocodone/Apap 5/325 Tablet (Lortab 5 (07/28/20 15:30) Lidocaine 1% Inj 20 Ml (Xylocaine 1% Inj (07/28/20 17:30) Triamcinolone Acetonide Im (Kenalog-40) (07/28/20 17:30) Lidocaine 1% Inj 20 Ml (Xylocaine 1% Inj (07/28/20 17:10) Triamcinolone Acetonide Im (Kenalog-40) (07/28/20 17:10) Medications Given in ED Current Medications Medications Dose Ordered Sig/Javier Route Start Time Stop Time Status Last Admin Dose Admin Acetaminophen/ Hydrocodone Bitart 1 ea ONCE ONCE PO 07/28/20 15:30 07/28/20 15:31 DC 07/28/20 16:08 1 EA Lidocaine HCl 2 ml ONCE ONCE INJ 07/28/20 17:30 07/28/20 17:31 07/28/20 17:28 6 ML Triamcinolone Acetonide 40 mg ONCE ONCE IA 07/28/20 17:30 07/28/20 17:31 07/28/20 17:27 40 MG Vital Signs/I&O 07/28/20 15:23 Temp 36.1 Pulse 79 Resp 16 B/P (MAP) 165/95 (118) O2 Delivery Room Air Diagnostic Imaging Diagonstic Imaging: Ultrasound Comments NAME: ELOY CARROLL MED REC#: [id number] PT STATUS: REG ER : 1960 PHYSICIAN: BIANCA CLAY APRN ADMIT DATE: 07/28/20/ER Draft Date of Exam:07/28/20 US VENOUS LOWER EXT LT PROCEDURE: US left lower extremity venous. TECHNIQUE: Multiple real-time grayscale images were obtained over the left lower extremity in various projections. Additional duplex Doppler and color Doppler images were also obtained. INDICATION: Left leg pain. Left lower extremity femoropopliteal deep venous system showed normal color flow, normal compressibility and normal waveforms. No deep or visualized superficial thrombus. No mass or fluid collection documented. IMPRESSION: Normal negative unilateral left lower extremity venous Doppler and ultrasound exam. Dictated on workstation # [id number] Dict: 07/28/20 1622 Trans: 07/28/20 1652 [facility] [id number] Interpreted by: SHANTI HARMON Electronically signed by: NAME: ELOY CARROLL [facility] REC#: [id number] PT STATUS: REG ER : 1960 PHYSICIAN: BIANCA CLAY APRN ADMIT DATE: 07/28/20/ER Signed Date of Exam:07/28/20 US LEFT LOW EXT ARTERIAL [id number] INDICATION: Left leg pain. COMPARISON: The study is interpreted in correlation with the CT angiographic study of the lower extremity dated 07/25/2020. FINDINGS: There is a normal high resistive triphasic waveform throughout the femoropopliteal arterial system with no focal velocity acceleration or deceleration. There is good biphasic flow in the ankle at the dorsalis pedis and posterior tibials. Partially thrombosed aneurysmal dilatation at the level of the popliteal artery measures approximately 1.9 cm in maximal transverse diameter, unchanged from the prior exam. There is no hemodynamically significant stenosis and no segmental occlusion. Similar to the appearance at CT, there is a complex popliteal fossa Shepherd's cyst with likely intracystic debris and/or hemorrhage in its caudal aspect. This did not reveal active color Doppler blood flow. The cyst is not measured on the images submitted but visually does not appear convincingly changed from the prior CT. IMPRESSION: 1. 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 2. Large complex Shepherd's cyst, likely with intracystic hemorrhage, also does not appear appreciably changed from the correlative CT angiographic study. 3. No hemodynamically significant arterial stenosis or segmental occlusion. Dictated by: Dictated on workstation # [id number] Dict: 07/28/20 1623 Trans: 07/28/20 1708 [id number] Interpreted by: SHANTI HARMON Electronically signed by: SHANTI HARMON 07/28/20 1708 Departure Communication (Admissions) Because of this Shepherd's cyst we will do an intra-articular injection of lidocaine with triamcinolone 40 mg. Impression Primary Impression: Shepherd's cyst, ruptured Disposition: 01 HOME, SELF-CARE Condition: Stable Departure-Patient Inst. Decision time for Depature: 17:14 Referrals: JERRY PITT MD (PCP/Family) Primary Care Physician Patient Instructions: Shepherd's Cyst (DC) Add. Discharge Instructions: Return to ER for any worsening. Follow-up with Dr. Pitt later this week. Scripts Hydrocodone/Acetaminophen (Hydrocodone-Acetamin 5-325 mg) 1 Each Tablet 1 TAB PO Q4H PRN for PAIN-MODERATE (5-7), #14 TAB Prov: BIANCA CLAY APRN 07/28/20 Copy Copies To 1: JERRY PITT MD, PETER J APRN Jul 28, 2020 15:33
[2020-07-28 15:44] LABS: BASOPHILS # (AUTO) 0.1 10^3/uL (0.0-0.1); BASOPHILS % (AUTO) 1 % (0-10); EOSINOPHILS # (AUTO) 0.3 10^3/uL (0.0-0.3); EOSINOPHILS % (AUTO) 3 % (0-10); HEMATOCRIT 47 % (40-54); HEMOGLOBIN 15.8 g/dL (13.3-17.7); LYMPHOCYTES # (AUTO) 1.5 10^3/uL (1.0-4.0); LYMPHOCYTES % (AUTO) 16 % (12-44); MEAN CORPUSCULAR HEMOGLOBIN 31 pg (25-34); MEAN CORPUSCULAR HGB CONC 34 g/dL (32-36); MEAN CORPUSCULAR VOLUME 90 fL (80-99); MEAN PLATELET VOLUME 9.2 fL (9.0-12.2); MONOCYTES # (AUTO) 0.6 10^3/uL (0.0-1.0); MONOCYTES % (AUTO) 6 % (0-12); NEUTROPHILS # (AUTO) 7.2 10^3/uL (1.8-7.8); NEUTROPHILS % (AUTO) 75 % (42-75); PLATELET COUNT 338 10^3/uL (130-400); WHITE BLOOD COUNT 9.6 10^3/uL (4.3-11.0)
[2020-07-28 15:56] LABS: CHLORIDE 104 MMOL/L (98-107); POTASSIUM 3.8 MMOL/L (3.6-5.0); SODIUM 137 MMOL/L (135-145)
[2020-07-28 15:57] LABS: CALCIUM 9.1 MG/DL (8.5-10.1)
[2020-07-28 15:58] LABS: GLUCOSE 127 MG/DL (70-105)
[2020-07-28 15:59] LABS: CARBON DIOXIDE 22 MMOL/L (21-32)
[2020-07-28 16:01] LABS: CREATININE SERUM 0.84 MG/DL (0.60-1.30); GFR ESTIMATED > 60
[2020-07-28 16:02] LABS: BUN/CREATININE RATIO 14
--- NOTE | 2020-07-28 16:53 | Diagnostic Imaging Report ---
PROCEDURE: US left lower extremity venous. TECHNIQUE: Multiple real-time grayscale images were obtained over the left lower extremity in various projections. Additional duplex Doppler and color Doppler images were also obtained. INDICATION: Left leg pain. Left lower extremity femoropopliteal deep venous system showed normal color flow, normal compressibility and normal waveforms. No deep or visualized superficial thrombus. No mass or fluid collection documented. IMPRESSION: Normal negative unilateral left lower extremity venous Doppler and ultrasound exam. Dictated by: Dictated on workstation # [id number]
--- NOTE | 2020-07-28 16:53 | Diagnostic Imaging Report ---
INDICATION: Left leg pain. COMPARISON: The study is interpreted in correlation with the CT angiographic study of the lower extremity dated 07/25/2020. FINDINGS: There is a normal high resistive triphasic waveform throughout the femoropopliteal arterial system with no focal velocity acceleration or deceleration. There is good biphasic flow in the ankle at the dorsalis pedis and posterior tibials. Partially thrombosed aneurysmal dilatation at the level of the popliteal artery measures approximately 1.9 cm in maximal transverse diameter, unchanged from the prior exam. There is no hemodynamically significant stenosis and no segmental occlusion. Similar to the appearance at CT, there is a complex popliteal fossa Shephred's cyst with likely intracystic debris and/or hemorrhage in its caudal aspect. This did not reveal active color Doppler blood flow. The cyst is not measured on the images submitted but visually does not appear convincingly changed from the prior CT. IMPRESSION: 1. 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 2. Large complex Shepherd's cyst, likely with intracystic hemorrhage, also does not appear appreciably changed from the correlative CT angiographic study. 3. No hemodynamically significant arterial stenosis or segmental occlusion. Dictated by: Dictated on workstation # [id number]
[2020-07-28] MEDS ORDERED: TRIAMCINOLONE ACET (KENALOG-40) 40 MG/ML 1 ML VIAL ONE (17:10)
[2020-07-28] MEDS ORDERED: LIDOCAINE 1% INJ 20 ML 20 ML VIAL ONE (17:10)
[2020-07-28] MEDS ORDERED: LIDOCAINE 1% INJ 20 ML 20 ML VIAL INJ ONE (17:30)
[2020-07-28] MEDS ORDERED: TRIAMCINOLONE ACET (KENALOG-40) 40 MG/ML 1 ML VIAL IA ONE (17:30)
[2020-07-28] MEDS ORDERED: ACHD5005 PO (17:32)
[2020-07-28 17:59] VITALS: BP 155/80
== END 2020-07-28 17:59 | disposition home or self-care (01) ==
LOC: EDUNIT# 15:18 → ER 15:19
DX: M66.0 Rupture of popliteal cyst (principal); I25.2 Old myocardial infarction; I10 Essential (primary) hypertension; E78.00 Pure hypercholesterolemia, unspecified; F31.9 Bipolar disorder, unspecified; I25.10 Atherosclerotic heart disease of native coronary artery without angina pectoris; Z87.891 Personal history of nicotine dependence; Z79.82 Long term (current) use of aspirin; Z79.52 Long term (current) use of systemic steroids; Z79.899 Other long term (current) drug therapy
CPT/HCPCS: 36415; 80048; 85025; 93926

== ENCOUNTER → 2021-06-15 | Outpatient (CLI) | payer MEDICAID ==
[~2021-06-15] MED LIST changes: +ACHD5005 PO; +CYCL10TA25 PO
[2021-06-15 09:19] LABS: ALBUMIN 4.2 GM/DL (3.2-4.5); BILIRUBIN,TOTAL 0.4 MG/DL (0.1-1.0); CALCIUM 9.4 MG/DL (8.5-10.1); CREATININE SERUM 0.94 MG/DL (0.60-1.30); POTASSIUM 4.2 MMOL/L (3.6-5.0); TOTAL PROTEIN 6.8 GM/DL (6.4-8.2)
== END ==
LOC: LAB 08:35
PROVIDERS: ATTEND Physician Assistant
DX: E78.2 Mixed hyperlipidemia (principal); I10 Essential (primary) hypertension; I65.23 Occlusion and stenosis of bilateral carotid arteries; F17.200 Nicotine dependence, unspecified, uncomplicated; Z82.49 Family history of ischemic heart disease and other diseases of the circulatory system
CPT/HCPCS: 36415; 80053; 80061

== ENCOUNTER → 2022-06-21 | Outpatient (CLI) | payer MEDICAID ==
[~2022-06-21] MED LIST changes: +CILO50TA2 PO; +CLOP-31 PO; -CLOP75TA69 PO
[2022-06-21 09:33] LABS: ALBUMIN 4.2 GM/DL (3.2-4.5); BILIRUBIN,TOTAL 0.5 MG/DL (0.1-1.0); CALCIUM 9.2 MG/DL (8.5-10.1); CREATININE SERUM 0.78 MG/DL (0.60-1.30); POTASSIUM 4.3 MMOL/L (3.6-5.0)
== END ==
LOC: LAB 08:41
PROVIDERS: ATTEND Physician Assistant
DX: I10 Essential (primary) hypertension (principal); E78.2 Mixed hyperlipidemia; I65.23 Occlusion and stenosis of bilateral carotid arteries; I73.9 Peripheral vascular disease, unspecified; Z82.49 Family history of ischemic heart disease and other diseases of the circulatory system; Z72.0 Tobacco use
CPT/HCPCS: 36415; 80053; 80061